=== PATIENT | female | born 1975 | race Caucasian/White ===

== ENCOUNTER → 2016-09-29 | Outpatient (CLI) | payer MEDICAID ==
[~2016-09-29] MED LIST: ALBUTEROL-200 PUFFS/ IH; CIPRO 500MG TA500 MG PO; CITALOPRAM HYDR20 MG PO; CLONAZEPAM 1MG T1 MG PO; COMPAZINE10 MG PO; FLEXERIL10 MG PO; GARCINIA CAMBO1 EACH PO; GREEN COFFEE B400 MG PO; HYDROCODONE-APA1 TA1 PO; IMITREX 25MG TA25 MG PO; NORCO 325 MG-101 TAB PO; NORCO 325 MG-51 TAB PO; OMEPRAZOLE20 MG PO; OMEPRAZOLE40 MG PO; PERCOCET 10 MG1 EACH PO; PHENERGAN 25MG.25 M1 PO; PHENERGAN25 M3 PO; PREDNISONE 20MG20 MG PO; PREMPRO 0.3 MG-1 TAB PO; PREMPRO 0.625 M1 TA1 PO; PYRIDIUM200 M2 PO; XANAX 0.5MG TA0.5 MG PO; ZANTAC 150150 MG PO; ZOFRAN4 MG PO
[2016-09-29 11:49] LABS: LYMPH # 2.5 K/mm3 (0.7-4.5); LYMPH % 28.3 % (10-50.0)
[2016-09-29 12:03] LABS: HEMOGLOBIN 13.6 g/dL (12.2-16.2)
[2016-09-29 13:26] LABS: BUN 15 mg/dL (7-18)
[2016-09-29 13:29] LABS: GFR (ESTIMATED) 79 ML/MIN (59-)
== END ==
LOC: LAB 11:32
PROVIDERS: Surgery
DX: Z01.812 Encounter for preprocedural laboratory examination (principal)

== ENCOUNTER 2016-10-01 09:32 | Day surgery (SDC) | payer MEDICAID ==
[~2016-10-01] VITALS: Ht 165.1 cm; Wt 123.8 kg
[~2016-10-01 09:32] MED LIST changes: -CIPRO 500MG TA500 MG PO; -FLEXERIL10 MG PO; -PREDNISONE 20MG20 MG PO; -PYRIDIUM200 M2 PO
--- NOTE | 2016-10-01 14:08 | Operative Note ---
Surgeon/Diagnoses Surgeon/Bid Manager(s) Date of procedure: 10/01/16 Surgeon: Favian Randhawa Diagnoses Pre-op diagnosis: Nonfunctioning painful venous access port Post-op diagnosis same Procedure Procedure Procedure: Removal of RIGHT internal jugular venous access port with subcutaneous reservoir Indications: RADHA OCFFEY is a 41 year-old Female with a history of metastatic cervical cancer. She had a previous venous access port placed to apparently in the RIGHT internal jugular vein at [facility]. This has become nonfunctional. Patient states that it is tender to her. It is no longer used as she states that she is in remission. She was sent for surgical consultation for removal. Findings: Fibrous capsule around noninfected venous access port. Procedure Description: Consent was obtained and patient was taken to the operating room. She is positioned in a supine position. Gen. anesthesia was induced via LMA. RIGHT neck and chest were prepped and draped in standard surgical fashion. Elliptical incision was made excising previous scar. Port was placed directly underneath the scar. Dissection was carried down to the subcutaneous reservoir port. This was dissected free from surrounding subcutaneous tissues using mostly sharp Metzenbaum dissection. The fibrous capsule was incised from the catheter. Port with attached catheter was then removed and its entirety and intact. Pressure was held at the site of the internal jugular vein and at the wound for several minutes for hemostasis. Wound was then irrigated. Hemostasis was achieved with electrocautery. Local anesthetic was infiltrated into the wound. Subdermal tissues were reapproximated with interrupted 2-0 Vicryl. Skin was closed with 4- 0 Monocryl in a subcu fashion. Clean dry sterile dressing was applied. Patient tolerated the procedure well no immediate complications. EBL (ml): 20 Anesthesia: Gen. via LMA Specimens: None Disposition Disposition: To PACU at 1408
--- NOTE | 2016-10-01 14:08 | Operative Note ---
Surgeon/Diagnoses Surgeon/Defensive Line Coach(s) Date of procedure: 10/01/16 Surgeon: Favian Randhawa Diagnoses Pre-op diagnosis: Nonfunctioning painful venous access port Post-op diagnosis same Procedure Procedure Procedure: Removal of RIGHT internal jugular venous access port with subcutaneous reservoir Indications: RADHA COFFEY is a 41 year-old Female with a history of metastatic cervical cancer. She had a previous venous access port placed to apparently in the RIGHT internal jugular vein at [facility]. This has become nonfunctional. Patient states that it is tender to her. It is no longer used as she states that she is in remission. She was sent for surgical consultation for removal. Findings: Fibrous capsule around noninfected venous access port. Procedure Description: Consent was obtained and patient was taken to the operating room. She is positioned in a supine position. Gen. anesthesia was induced via LMA. RIGHT neck and chest were prepped and draped in standard surgical fashion. Elliptical incision was made excising previous scar. Port was placed directly underneath the scar. Dissection was carried down to the subcutaneous reservoir port. This was dissected free from surrounding subcutaneous tissues using mostly sharp Metzenbaum dissection. The fibrous capsule was incised from the catheter. Port with attached catheter was then removed and its entirety and intact. Pressure was held at the site of the internal jugular vein and at the wound for several minutes for hemostasis. Wound was then irrigated. Hemostasis was achieved with electrocautery. Local anesthetic was infiltrated into the wound. Subdermal tissues were reapproximated with interrupted 2-0 Vicryl. Skin was closed with 4- 0 Monocryl in a subcu fashion. Clean dry sterile dressing was applied. Patient tolerated the procedure well no immediate complications. EBL (ml): 20 Anesthesia: Gen. via LMA Specimens: None Disposition Disposition: To PACU at 1408
[2016-10-01 15:49] VITALS: BP 112/76
[2016-10-13] MEDS ORDERED: OMEPRAZOLE40 MG PO (21:05)
[2016-10-13] MEDS ORDERED: PREDNISONE 20MG20 MG PO (22:42)
[2016-10-13] MEDS ORDERED: FLEXERIL10 MG PO (22:42)
== END 2016-10-01 15:12 | disposition home or self-care (01) ==
LOC: SDC 09:32
PROVIDERS: Surgery
PROC: 0JPT3WZ Removal of Totally Implantable Vascular Access Device from Trunk Subcutaneous Tissue and Fascia, Percutaneous Approach (ICD-10-PCS; principal; 2016-10-01 11:00)
DX: Z45.2 Encounter for adjustment and management of vascular access device (principal)
CPT/HCPCS: J2405

== ENCOUNTER 2017-01-08 22:23 | Emergency (ER) | payer MEDICAID ==
[~2017-01-08] VITALS: Ht 165.1 cm; Wt 123.8 kg
[~2017-01-08 22:23] MED LIST changes: +FLEXERIL10 MG PO; +PREDNISONE 20MG20 MG PO
--- NOTE | 2017-01-08 22:37 | Emergency Room Report ---
History of Present Illness Time Seen by [id number] Presenting Problem in Triage Pt arrived:Walked Presenting Problem:PAIN AND BLOOD WITH URINATION. 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 N Clinical Suspician of Infection? Y Mental Status: 1 - Regular (Normal Baseline) Sepsis Risk:Possible Sepsis Risk Have you (or family members/close friends) recently traveled outside the [place]? N If Yes, where/when: Have you had exposure to infectious disease within the past month? TB? Other? Specify: Source patient, RN notes reviewed, family, old records Exam Limitations no limitations Comment lower pelvic pain with hematuria and painful urination over the last day Cardiac Chest Pain Chest pain indicative of cardiac No Timing/Duration this evening Severity moderate ALLERGIES Coded Allergies: aspirin (10/01/16) ketorolac (From TORADOL) (10/01/16) morphine (10/01/16) Home Medications Reported Medications Citalopram Hydrobromide (Citalopram HBr) 20 MG PO PRN PRN ANXIETY #30 TAB Omeprazole (Omeprazole 40MG) 40 MG PO DAILY History Medical History General CAD? No Angina: No [place]: No Hypertension? No Hyperlipidemia? No CHF? No DVT? No PE? No COPD? No Asthma? Yes Anemia? No GERD? Yes Gastric ulcers? No GI Bleed? No Hernia? No Thyroid Problems? No Hypothyroidism? No CVA? No Seizures? No Diabetes? No Insulin Dependent: No Insulin Pump: No Home FSBS? No Renal Insuffiency? No End Stage Renal Disease? No UTI? Yes Stones? No BPH? No GB Disease: No Nephritic Syndrome? No Asplenia? No Hepatitis? No Sickle Cell Disease? No Arthritis? No Migraines? Yes Cataracts? No Glaucoma? No MRSA? No HIV? No TB? No Anxiety? Yes Depression? Yes Cancer? Yes Site: CERVICAL/ LYMPH NODES More? 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 Respiratory denies cough, denies shortness of breath, denies wheezing Cardiovascular denies chest pain, denies palpitations, denies syncope Gastrointestinal denies abdominal pain, denies constipation, denies vomiting Genitourinary see HPI, dysuria, frequency, hematuria. denies: discharge, abnormal vaginal bleeding. Musculoskeletal denies back pain, denies joint pain, denies joint swelling Skin denies rash Psychiatric/Neurological denies headache, denies seizure Physical Exam Vital Signs Vital Signs Date Time Temp Pulse Resp B/P Pulse O2 O2 Flow FiO2 Ox Delivery Rate 01/09 2228 98.0 120 20 139/78 96 - WBC >12,000 or <4,000 or 10% bands? 2 or more SIRS Criteria Met? B/P:139/78 MAP:98 Creatinine >2.0? UA output<0.5ml/kg/hr for 2 hrs? Platelet count >100,000? Lactate >2.0mmol/1? INR >1.2 or PTT > than 60 sec? Evidence of Organ Dysfunction? Provider documented clinical suspician of infection? Y Sepsis Criteria Count: 2 Sepsis Risk: Possible Sepsis Risk General Appearance no apparent distress Eye Exam - bilateral eye PERRL, bilateral eye EOMI Ear, Nose, Throat normal ENT inspection Neck supple Respiratory Status No: respiratory distress. 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 No Results/Orders Laboratory Tests 01/08/170: Urine Color YELLOW, Urine Appearance CLEAR, Urine pH 5.5, Ur Specific [place] 1.015, Urine Protein NEGATIVE, Urine Ketones NEGATIVE, Urine Blood 2+ H, Urine Nitrate NEGATIVE, Urine Bilirubin NEGATIVE, Urine Urobilinogen 0.2, Ur Leukocyte Esterase NEGATIVE, Urine RBC 5-10, Urine WBC OCC, Urine Bacteria 1+, Urine Glucose 2+ H Orders Procedure Date/time Status DIET-NOTHING BY MOUTH 01/[address] ABD & PELVIS W/O CONTRAST 01/[address] SCAN REQ 01/08 2301 Complete URINALYSIS/COMPLETE 01/08 2233 Complete XRAY/CT/US XRAY/CT/US CT abdomen, pelvis CT interpretation by discussed w/radiologist Time results known: 8 CT Results normal/NAD Departure Departure Time of Disposition 0028 Disposition DC Home or Self Care(routine) Clinical Impression Primary Impression: Urethritis Condition STABLE Referrals Slim Queen MD (Family) Patient Instructions DI for Hematuria Additional Instructions fluids and see pcp for follow up Discharge Counseling Counseled pt/family regarding diagnosis, test results, medications/RX, follow up needs Prescriptions Current Visit Scripts Ciprofloxacin HCl (Cipro 500MG TAB) 500 MG PO BID #14 TAB Phenazopyridine HCl (Pyridium) 200 MG PO TID #15 TAB ED Critical Care Critical Care No at 0036
--- NOTE | 2017-01-08 22:37 | Emergency Room Report ---
History of Present Illness Time Seen by [id number] Presenting Problem in Triage Pt arrived:Walked Presenting Problem:PAIN AND BLOOD WITH URINATION. 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 N Clinical Suspician of Infection? Y Mental Status: 1 - Regular (Normal Baseline) Sepsis Risk:Possible Sepsis Risk Have you (or family members/close friends) recently traveled outside the [place]? N If Yes, where/when: Have you had exposure to infectious disease within the past month? TB? Other? Specify: Source patient, RN notes reviewed, family, old records Exam Limitations no limitations Comment lower pelvic pain with hematuria and painful urination over the last day Cardiac Chest Pain Chest pain indicative of cardiac No Timing/Duration this evening Severity moderate ALLERGIES Coded Allergies: aspirin (10/01/16) ketorolac (From TORADOL) (10/01/16) morphine (10/01/16) Home Medications Reported Medications Citalopram Hydrobromide (Citalopram HBr) 20 MG PO PRN PRN ANXIETY #30 TAB Omeprazole (Omeprazole 40MG) 40 MG PO DAILY History Medical History General CAD? No Angina: No [place]: No Hypertension? No Hyperlipidemia? No CHF? No DVT? No PE? No COPD? No Asthma? Yes Anemia? No GERD? Yes Gastric ulcers? No GI Bleed? No Hernia? No Thyroid Problems? No Hypothyroidism? No CVA? No Seizures? No Diabetes? No Insulin Dependent: No Insulin Pump: No Home FSBS? No Renal Insuffiency? No End Stage Renal Disease? No UTI? Yes Stones? No BPH? No GB Disease: No Nephritic Syndrome? No Asplenia? No Hepatitis? No Sickle Cell Disease? No Arthritis? No Migraines? Yes Cataracts? No Glaucoma? No MRSA? No HIV? No TB? No Anxiety? Yes Depression? Yes Cancer? Yes Site: CERVICAL/ LYMPH NODES More? 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 Respiratory denies cough, denies shortness of breath, denies wheezing Cardiovascular denies chest pain, denies palpitations, denies syncope Gastrointestinal denies abdominal pain, denies constipation, denies vomiting Genitourinary see HPI, dysuria, frequency, hematuria. denies: discharge, abnormal vaginal bleeding. Musculoskeletal denies back pain, denies joint pain, denies joint swelling Skin denies rash Psychiatric/Neurological denies headache, denies seizure Physical Exam Vital Signs Vital Signs Date Time Temp Pulse Resp B/P Pulse O2 O2 Flow FiO2 Ox Delivery Rate 01/09 2228 98.0 120 20 139/78 96 - WBC >12,000 or <4,000 or 10% bands? 2 or more SIRS Criteria Met? B/P:139/78 MAP:98 Creatinine >2.0? UA output<0.5ml/kg/hr for 2 hrs? Platelet count >100,000? Lactate >2.0mmol/1? INR >1.2 or PTT > than 60 sec? Evidence of Organ Dysfunction? Provider documented clinical suspician of infection? Y Sepsis Criteria Count: 2 Sepsis Risk: Possible Sepsis Risk General Appearance no apparent distress Eye Exam - bilateral eye PERRL, bilateral eye EOMI Ear, Nose, Throat normal ENT inspection Neck supple Respiratory Status No: respiratory distress. 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 No Results/Orders Laboratory Tests 01/08/170: Urine Color YELLOW, Urine Appearance CLEAR, Urine pH 5.5, Ur Specific [place] 1.015, Urine Protein NEGATIVE, Urine Ketones NEGATIVE, Urine Blood 2+ H, Urine Nitrate NEGATIVE, Urine Bilirubin NEGATIVE, Urine Urobilinogen 0.2, Ur Leukocyte Esterase NEGATIVE, Urine RBC 5-10, Urine WBC OCC, Urine Bacteria 1+, Urine Glucose 2+ H Orders Procedure Date/time Status DIET-NOTHING BY MOUTH 01/[address] ABD & PELVIS W/O CONTRAST 01/[address] SCAN REQ 01/08 2301 Complete URINALYSIS/COMPLETE 01/08 2233 Complete XRAY/CT/US XRAY/CT/US CT abdomen, pelvis CT interpretation by discussed w/radiologist Time results known: 8 CT Results normal/NAD Departure Departure Time of Disposition 0028 Disposition DC Home or Self Care(routine) Clinical Impression Primary Impression: Urethritis Condition STABLE Referrals Slim Queen MD (Family) Patient Instructions DI for Hematuria Additional Instructions fluids and see pcp for follow up Discharge Counseling Counseled pt/family regarding diagnosis, test results, medications/RX, follow up needs Prescriptions Current Visit Scripts Ciprofloxacin HCl (Cipro 500MG TAB) 500 MG PO BID #14 TAB Phenazopyridine HCl (Pyridium) 200 MG PO TID #15 TAB ED Critical Care Critical Care No at 0036
[2017-01-08 22:50] LABS: URINE BILIRUBIN - DIPSTICK NEGATIVE (NEG); URINE BLOOD 2+ (NEG)
[2017-01-09] MEDS ORDERED: PYRIDIUM200 M2 PO (00:36)
[2017-01-09] MEDS ORDERED: CIPRO 500MG TA500 MG PO (00:36)
[2017-01-09 00:56] VITALS: BP 134/70
--- NOTE | 2017-01-09 09:03 | RADIOLOGY REPORT PS360 ---
CT ABD PELVIS W/O CONTRAST CLINICAL INDICATION: Abdominal pain, localized lower abdominal pain PELVIC PAIN ORDERING PHYSICIAN: Mor Queen MD PATIENT AGE: 41 years COMPARISON: 09/05/2016 TECHNIQUE: Axial images obtained with sagittal and coronal reformats. PROCEDURE: Oral Contrast: None IV Contrast: None . FINDINGS: Lower thorax: No acute finding . Calcified granuloma left lower lobe ABDOMEN: Liver: Mild fatty liver. No focal liver lesions evident. Gallbladder: Contracted. No radiopaque stones Pancreas: No masses or peripancreatic fluid collections. Spleen: Unremarkable. Adrenals: Unremarkable Kidneys/ureters: No obstructing renal or ureteral calculi are evident. There is minimal ectasia of the right ureter. This however did have a similar appearance on the previous study and could be due to prior obstruction. No obstructing calculi evident. Stomach bowel: Nondistended. No obvious mass or thickening. Appendix: No evidence of appendicitis. PELVIS: Reproductive: Unremarkable Bladder: Nondistended. No obvious stones or masses. ABDOMEN & PELVIS: Peritoneum: No abnormal fluid collections. No obvious inflammatory changes. No free air. Lymph nodes: No enlarged lymph nodes apparent. Vasculature: No evidence of abdominal aortic aneurysm. No retroperitoneal hemorrhage evident. Bones: No acute fracture IMPRESSION: 1. No acute intra-abdominal or pelvic pathology. 2. Nonacute findings as described above
[2017-01-16] MEDS ORDERED: GABAPENTIN100 MG PO (06:48)
[2017-01-16] MEDS ORDERED: NORCO 325 MG-51 TAB PO (07:45)
== END 2017-01-09 00:56 | disposition home or self-care (01) ==
LOC: ER 22:23
PROVIDERS: Emergency Medicine
DX: N34.2 Other urethritis (principal)

== ENCOUNTER → 2017-04-20 | Outpatient (CLI) | payer MEDICAID ==
[~2017-04-20] MED LIST changes: +ACETAMIN W/CODE1 TAB PO; +BUPROPION HCL150 M1 PO; +CIPRO 500MG TA500 MG PO; +CLONAZEPAM0.5 M1 PO; +GABAPENTIN100 MG PO; +GABAPENTIN300 M1 PO; +LEVOTHYROXIN0.025 M1 PO; +NAPROSYN500 M1 PO; +PERCOCET1 TAB PO; +PYRIDIUM200 M2 PO; +ROBAXIN-750750 MG PO; +TOPIRAMATE25 MG PO
[2017-04-20 15:00] LABS: LYMPH # 1.9 K/mm3 (0.7-4.5); LYMPH % 30.3 % (10-50.0)
[2017-04-20 17:29] LABS: BUN 14 mg/dL (7-18)
[2017-04-20 17:32] LABS: GFR (ESTIMATED) 61 ML/MIN (59-)
== END ==
LOC: LAB 14:27
PROVIDERS: Surgery
DX: K82.8 Other specified diseases of gallbladder (principal); K81.1 Chronic cholecystitis; Z01.812 Encounter for preprocedural laboratory examination

== ENCOUNTER 2017-06-23 13:26 | Emergency (ER) | payer MEDICAID ==
[~2017-06-23] VITALS: Ht 165.1 cm; Wt 124.7 kg
[2017-06-23] MEDS ORDERED: DIVALPROEX SOD125 M1 PO (13:47)
[2017-06-23 14:23] LABS: HEMOGLOBIN 12.4 g/dL (12.2-16.2)
[2017-06-23 14:24] LABS: LYMPH % 29.9 % (10-50.0)
--- NOTE | 2017-06-23 14:39 | Emergency Room Report ---
History of Present Illness Time Seen by [id number] Presenting Problem in Triage Pt arrived:Walked Presenting Problem:PT REPORTS WENT TO THE BATHROOM TO URINATE, STATED SHE SAT DOWN TO URINATE FELT A "POPPING" SENSATION AND THEN URINE "CAME OUT SO STRONG IT HURT". PT REPORTS THERE WAS BLOOD AND A "LARGE" BLOOD CLOT IN TOILET AFTER URINATING. PT REPORTS SHE IS "MORE SCARED THAN ANYTHING", PT IS TEARFUL DURING TRIAGE. Onset of symptoms date/time:06/23/17/ or onset unknown for:MEDICAL HX UNKNOWN Treatment Prior to Arrival: TRIAL JUSTICE Provided by: Sepsis Risk Assessment: Temp: 98.1 B/P: 139/95 MAP: 109 Pulse: 98 Resp: 20 Recent fever? N Clinical Suspician of Infection? N Mental Status: 1 - Regular (Normal Baseline) Sepsis Risk:Possible Sepsis Risk Have you (or family members/close friends) recently traveled outside the [place]? N If Yes, where/when: Have you had exposure to infectious disease within the past month? N TB? Other? Specify: Comment Patient says she felt the need to urinate, while sitting on the toilet it took her several seconds to start her stream and when she did so she felt a "pop" and saw that she had hematuria. Since then she has persistent hematuria. She also has lower abdominal pain going into both flanks, RIGHT worse than LEFT. She urinated twice this morning before this happened and did not have any visible hematuria or dysuria. She has nausea but no vomiting. No fever. No prior history of urinary tract infection or kidney stone. She does have a history of cervical cancer, she says she was told mid 2015 that she was in remission. ALLERGIES Coded Allergies: aspirin (04/22/17) ketorolac (From TORADOL) (04/22/17) morphine (04/22/17) Home Medications Reported Medications Omeprazole (Omeprazole 40MG) 40 MG PO DAILY Gabapentin 300 MG PO TID #90 Clonazepam (Clonazepam 0.5MG) 0.5 MG PO BID #60 Levothyroxine Sodium (Levothyroxine 0.025MG) 0.025 MG PO DAILY #30 Bupropion Hcl (Bupropion HCl Sr) 150 MG PO BID #60 Divalproex Sodium 250 MG PO QHS #60 History Medical History General CAD? No Angina: No NE: No Hypertension? No Hyperlipidemia? No CHF? No DVT? No PE? No COPD? No Asthma? Yes Anemia? No GERD? Yes Gastric ulcers? No GI Bleed? No Hernia? No Thyroid Problems? No Hypothyroidism? No CVA? No Seizures? No Diabetes? No Insulin Dependent: No Insulin Pump: No Home FSBS? No Renal Insuffiency? No End Stage Renal Disease? No UTI? Yes Stones? No BPH? No GB Disease: Yes Nephritic Syndrome? No Asplenia? No Hepatitis? No Sickle Cell Disease? No Arthritis? No Migraines? Yes Cataracts? No Glaucoma? No MRSA? No HIV? No TB? No Anxiety? Yes Depression? Yes Cancer? Yes Site: CERVICAL/ LYMPH NODES More? 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 Review of Systems All Other Systems Reviewed and Negative Constitutional denies fever Gastrointestinal abdominal pain, nausea Genitourinary dysuria, hematuria. Musculoskeletal back pain Physical Exam Vital Signs Vital Signs Date Time Temp Pulse Resp B/P Pulse O2 O2 Flow FiO2 Ox Delivery Rate 06/23 1611 98.1 94 20 122/91 100 06/23 1555 94 20 122/91 100 06/23 1507 91 20 129/86 97 06/23 1504 8 06/23 1337 98.1 98 20 139/95 97 General Appearance mild distress, Moaning and rocking Eye Exam - bilateral eye normal exam, bilateral eye PERRL, bilateral eye EOMI Ear, Nose, Throat hearing grossly normal, normal ENT inspection Neck normal inspection, non-tender, supple, full range of motion Respiratory Status Yes: trachea midline, chest symmetrical, non tender chest. No: respiratory distress. Lung Sounds bilateral: normal breath sounds, lungs clear. Cardiovascular normal exam, regular rate/rhythm, no peripheral edema, no gallop, no JVD, no murmur, no rub, normal peripheral pulses Peripheral Pulses Pulses normal Yes Gastrointestinal normal bowel sounds, soft, no organomegaly, no guarding, no rebound, tenderness (generalized) Extremities non-tender, normal range of motion, normal inspection Neurologic alert, gastroenterology nurse II-XII nml as tested, normal exam, oriented x 3 Mental status anxious Skin intact, normal color, warm/dry Medical Decision Making LABS/Meds/Orders Pt receiving controlled substance in ED? Yes Comment [id number] 20 rxs. last rx for opiates 06/08/17, 60 tylenol #3, 30 day supply. Patient states has chronic back pain. Dr. Queen prescribed Tylenol 3 and referred her to pain management, but she did not go and is not currently on pain medication. I discussed report results, patient should have 2 weeks LEFT on her prescription for Tylenol with codeine. She says when she is in a lot of pain she doubles up on it and is now out. Results/Orders Laboratory Tests 06/23/17 1410: Urine Color RED, Urine Appearance CLEAR, Urine pH 6.0, Ur Specific Sparks >= 1.030, Urine Protein 3+ H, Urine Ketones NEGATIVE, Urine Blood 2+ H, Urine Nitrate NEGATIVE, Urine Bilirubin NEGATIVE, Urine Urobilinogen 0.2, Ur Leukocyte Esterase NEGATIVE, Urine RBC TNTC, Urine WBC 3-5, Ur Squamous Epith Cells OCC, Urine Bacteria TRACE, Urine Glucose NEGATIVE 06/23/17 1405: Sodium 141, Potassium 3.5, Chloride 106, Carbon Dioxide 24, BUN 16, Creatinine 1.1 H, Estimated Creat Clear 131, Estimated GFR (MDRD) 54 L, Glucose 227 H, Calcium 10.2 H, Total Bilirubin 0.3, AST 66 H, ALT 63, Alkaline Phosphatase 93 , Total Protein 7.3, Albumin 3.3 L, Globulin 4.0 H, Albumin/Globulin Ratio 0.8 L, WBC 6.7, RBC 4.50, Hgb 12.4, Hct 39.2, MCV 87.0, RDW 16.5, Plt Count 181, Gran % 66.0, Gran # 4.4, Lymphocytes % 29.9, Monocytes % 4.1, Lymphocytes # 2.0, Monocytes # 0.3, PUBS MCHC 31.6 L, MCH 27.6 Current Medication Orders Sig/Geovanny Start time Last Medication Dose Route Stop Time Status Admin Ondansetron HCl 0 .STK-MED ONE 06/23 1503 DC .ROUTE Hydromorphone HCl 0 .STK-MED ONE 06/23 1502 DCr .ROUTE Hydromorphone HCl 1 MG ONCE ONE 06/23 1500 DCr 06/23 IV 06/23 1501 1504 Ondansetron HCl 4 MG ONCE ONE 06/23 1500 DC 06/23 IV 06/23 1501 1503 Sodium Chloride 10 ML PRN PRN 06/23 1400 DCD IV 06/24 1349 Orders Procedure Date/time Status DIET-NOTHING BY MOUTH 06/23 D Active CULTURE, URINE 06/[address] ABD/PELVIS REQ 06/23 1448 Complete IV SALINE LOCK 06/23 1349 Active URINALYSIS/COMPLETE 06/23 1349 Complete CBC WITH AUTO DIFF 06/23 1349 Complete CHEM 12 PROFILE 06/23 1349 Complete XRAY/CT/US XRAY/CT/US CT abdomen, pelvis Comment CT scan interpreted by radiologist: No acute intra-abdominal or pelvic findings. Interval cholecystectomy. Subtle decreased attenuation involves the medial aspect of the RIGHT hepatic lobe at the region of the gallbladder fossa could be due to focal fatty infiltration or postsurgical changes. Departure Departure Disposition DC Home or Self Care(routine) Clinical Impression Primary Impression: Hematuria Qualifiers: Hematuria type: unspecified type Qualified Code: R31.9 - Hematuria, unspecified Secondary Impressions: Abdominal pain Qualifiers: Abdominal location: generalized Qualified Code: R10.84 - Generalized abdominal pain Back pain Qualifiers: Back pain location: low back pain Chronicity: unspecified Back pain laterality: bilateral Sciatica presence: without sciatica Qualified Code: M54.5 - Low back pain Condition STABLE Referrals Mor Queen MD Patient Instructions DI for Abdominal Pain-Adult, DI for Hematuria, DI for Low Back Pain Additional Instructions Take antibiotic as prescribed. All of which her primary care physician in 2-3 days for culture results and further evaluation. Additional instructions for ABDOMINAL PAIN: See your physician as soon as possible for further evaluation. Return immediately if worsening abdominal pain, vomiting, shortness of breath, fever, vomiting of blood or abdominal distention. Additional instructions for BACK PAIN: See your physician as soon as possible for further evaluation. Return immediately if back pain becomes intolerable, or if fever, numbness or weakness of your legs, loss of control of your bowels or bladder. Prescriptions Current Visit Scripts Ciprofloxacin HCl (Cipro 500MG TAB) 500 MG PO BID #20 TAB Phenazopyridine HCl (Pyridium) 200 MG PO TID #9 TAB ED Critical Care Critical Care No at 1650
[2017-06-23 14:50] LABS: URINE BILIRUBIN - DIPSTICK NEGATIVE (NEG); URINE BLOOD 2+ (NEG)
[2017-06-23 14:57] LABS: URINE SQUAMOUS CELLS OCC #/hpf (0-5)
--- NOTE | 2017-06-23 15:47 | RADIOLOGY REPORT PS360 ---
CT ABD PELVIS W/O CONTRAST CLINICAL INDICATION: Hematuria, abdominal pain, flank pain HEMATURIA, ABDO PAIN, BACK PAIN ORDERING PHYSICIAN: Onofre Hendrix MD PATIENT AGE: 42 years COMPARISON: 04/05/2017 TECHNIQUE: Axial images obtained with sagittal and coronal reformats. PROCEDURE: Oral Contrast: None IV Contrast: None . FINDINGS: The lung bases are clear. There is mild hepatic steatosis. There is a subtle area of decreased attenuation in the medial aspect of the right hepatic lobe in the region of the gallbladder fossa measuring approximately 1.8 cm. This is nonspecific and could be related to postsurgical changes or focal fatty infiltration.. There has been an interval cholecystectomy compared to the previous exam. No biliary dilatation. Spleen, adrenal glands, and pancreas are unremarkable other than some minimal calcification along the uncinate process of the pancreas nonspecific. No renal calculi or ureteral calculi. No hydronephrosis or ureteral dilatation. The appendix is unremarkable. No evidence of diverticulitis, intestinal obstruction, or free air. There is diverticulosis of the sigmoid colon versus nondistended haustra. No pelvic mass or abnormal fluid collection. Urinary bladder has an unremarkable appearance. No acute bony findings. There is a tiny umbilical hernia containing fat. IMPRESSION: 1. No acute intra-abdominal or pelvic findings. 2. Interval cholecystectomy. Subtle decreased attenuation involves the medial aspect of the right hepatic lobe at the region of the gallbladder fossa could be due to focal fatty infiltration or postsurgical changes. Follow-up suggested to confirm stability or resolution.
[2017-06-23] MEDS ORDERED: CIPRO 500MG TA500 MG PO (15:57)
[2017-06-23] MEDS ORDERED: PYRIDIUM200 M2 PO (15:57)
[2017-06-23 16:11] VITALS: BP 122/91
== END 2017-06-23 16:11 | disposition home or self-care (01) ==
LOC: ER 13:26
PROVIDERS: Emergency Medicine
DX: R10.84 Generalized abdominal pain (principal); R31.9 Hematuria, unspecified; M54.5 Low back pain; Z88.6 Allergy status to analgesic agent; K21.9 Gastro-esophageal reflux disease without esophagitis; F41.8 Other specified anxiety disorders; F17.210 Nicotine dependence, cigarettes, uncomplicated; Z85.41 Personal history of malignant neoplasm of cervix uteri
CPT/HCPCS: J2405

== ENCOUNTER → 2017-06-25 | Outpatient (CLI) | payer MEDICAID ==
[~2017-06-25] MED LIST changes: +DIVALPROEX SOD125 M1 PO; +TOPIRAMATE 25MG25 MG PO
== END ==
LOC: SL 10:07
DX: R51 Headache (principal); G47.30 Sleep apnea, unspecified; G25.81 Restless legs syndrome

== ENCOUNTER 2017-06-27 19:43 | Observation (INO) | payer MEDICAID ==
[~2017-06-27] VITALS: Ht 165.1 cm; Wt 123.4 kg
[~2017-06-27 19:43] MED LIST changes: -TOPIRAMATE 25MG25 MG PO
[2017-06-27 19:47] VITALS: BP 134/93
--- NOTE | 2017-06-27 20:16 | Emergency Room Report ---
History of Present Illness Time Seen by 2007 Presenting Problem in Triage Pt arrived:Wheelchair Presenting Problem:overdose on unknown amount of wellbutrin, depakote, neurontin , topamax and clonazepam at approx 1630. States she wants to Onset of symptoms date/time:06/27/17 or onset unknown for: Treatment Prior to Arrival: [employer] LENS Provided by: Sepsis Risk Assessment: Temp: B/P: 134/93 MAP: 106 Pulse: 91 Resp: 24 Recent fever? N Clinical Suspician of Infection? N Mental Status: 1 - Regular (Normal Baseline) Sepsis Risk:Possible Sepsis Risk Have you (or family members/close friends) recently traveled outside the [place]? N If Yes, where/when: Have you had exposure to infectious disease within the past month? N TB? Other? Specify: Comment The patient says that at 4:30 PM she took all of her medications because she does not want to live. She has family problems. She denies prior history of overdose. 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 Pill bottles include topamax, divalproex, gabapentin, and clonazepam. Gabapentin 300 mg in one 3 times a day, 57 capsules filled on 06/19/17. Divalproex 125 mg daily at bedtime, 60 capsules filled on 06/08/17. Topiramate 25 mg at bedtime, 30 tablets filled on 02/25/17. Clonazepam 0.5 mg twice a day, 38 tablets filled on 06/19/17. ALLERGIES Coded Allergies: aspirin (04/22/17) ketorolac (From TORADOL) (04/22/17) morphine (04/22/17) Home Medications Active Scripts Ciprofloxacin HCl (Cipro 500MG TAB) 500 MG PO BID #20 TAB Prov: 06/23/17 Phenazopyridine HCl (Pyridium) 200 MG PO TID #9 TAB Prov: 06/23/17 Reported Medications Omeprazole (Omeprazole 40MG) 40 MG PO DAILY Gabapentin 300 MG PO TID #90 Clonazepam (Clonazepam 0.5MG) 0.5 MG PO BID #60 Levothyroxine Sodium (Levothyroxine 0.025MG) 0.025 MG PO DAILY #30 Bupropion Hcl (Bupropion HCl Sr) 150 MG PO BID #60 Divalproex Sodium 250 MG PO QHS #60 History Medical History General CAD? No Angina: No VA: No Hypertension? No Hyperlipidemia? No CHF? No DVT? No PE? No COPD? No Asthma? Yes Anemia? No GERD? Yes Gastric ulcers? No GI Bleed? No Hernia? No Thyroid Problems? No Hypothyroidism? No CVA? No Seizures? No Diabetes? No Insulin Dependent: No Insulin Pump: No Home FSBS? No Renal Insuffiency? No End Stage Renal Disease? No UTI? Yes Stones? No BPH? No GB Disease: Yes Nephritic Syndrome? No Asplenia? No Hepatitis? No Sickle Cell Disease? No Arthritis? No Migraines? Yes Cataracts? No Glaucoma? No MRSA? No HIV? No TB? No Anxiety? Yes Depression? Yes Cancer? Yes Site: CERVICAL/ LYMPH NODES More? 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 Psychiatric/Neurological depressed, emotional problems Physical Exam Vital Signs Vital Signs Date Time Temp Pulse Resp B/P Pulse O2 O2 Flow FiO2 Ox Delivery Rate 06/27 2209 84 20 106/70 94 06/27 2209 98.0 84 24 106/70 94 06/278 88 20 119/69 97 06/27 2107 98.0 76 18 118/71 95 06/27 2021 93 16 107/61 98 06/27 1947 91 24 134/93 96 General Appearance no apparent distress Eye Exam - bilateral eye normal exam, bilateral eye PERRL, bilateral eye EOMI Ear, Nose, Throat hearing grossly normal, normal ENT inspection Neck normal inspection, non-tender, supple, full range of motion Respiratory Status Yes: trachea midline, chest symmetrical. No: respiratory distress. Lung Sounds bilateral: normal breath sounds, lungs clear. Cardiovascular normal exam, regular rate/rhythm, no peripheral edema, no gallop, no JVD, no murmur, no rub, normal peripheral pulses Peripheral Pulses Pulses normal Yes Gastrointestinal normal bowel sounds, normal exam, non tender, soft, no organomegaly Extremities normal inspection Neurologic drowsy Reflexes Reflexes normal Yes Mental status suicidal Skin intact, normal color, warm/dry Medical Decision Making LABS/Meds/Orders Pt receiving controlled substance in ED? No Results/Orders Laboratory Tests 06/27/172054: TSH 18.71 H, Free T4 0.97 06/27/172054: Sodium 140, Potassium 3.6, Chloride 106, Carbon Dioxide 27, BUN 12, Creatinine 1.1 H, Estimated Creat Clear 132, Estimated GFR (MDRD) 54 L, Glucose 168 H, Calcium 10.3 H, Total Bilirubin 0.2, AST 40 H, ALT 52, Alkaline Phosphatase 91 , Total Protein 7.3, Albumin 3.4, Globulin 3.9 H, Albumin/Globulin Ratio 0.9 L , WBC 9.6, RBC 4.42, Hgb 12.2, Hct 39.0, MCV 88.2, RDW 15.1, Plt Count 203, MPV 8.3, Gran % 58.5, Gran # 5.6, Lymphocytes % 33.7, Monocytes % 4.9, Eosinophils % 2.5, Basophils % 0.4, Lymphocytes # 3.2, Monocytes # 0.5, Eosinophils # 0.2, Basophils # 0.0, PUBS MCHC 31.2 L, MCH 27.5, Salicylates 3.3, Acetaminophen 0 L, Valproic Acid 84.3, Alcohols 0 Current Medication Orders Sig/Geovanny Start time Last Medication Dose Route Stop Time Status Admin Sodium Chloride 1,000 ML .Q1H1M 06/27 2200 DC IV 06/27 2300 Polyethylene Glycol/ 0 .STK-MED ONE 06/27 2048 DC Electrolytes .ROUTE Charcoal 0 .STK-MED ONE 06/27 2044 DC .ROUTE Charcoal 50 GM ONCE ONE 06/27 2015 DC 06/27 PO 06/27 Polyethylene Glycol/ 2,000 ML ONCE ONE 06/27 2015 DC 06/27 Electrolytes PO 06/27 Sodium Chloride 10 ML PRN PRN 06/27 2015 AC IV 10/01 2013 Orders Procedure Date/time Status Decision to admit 06/27 2203 Active ELECTROCARDIOGRAM REQUEST 06/27 2033 Active NG TUBE INSERT 06/27 2025 Active THYROID STIMULATING HORMONE 06/27 2016 Complete FREE T4 06/27 2016 Complete CHEST-PORTABLE 06/27 2013 Active IV SALINE LOCK 06/27 2013 Active 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 Active VALPROIC ACID (DEPAKENE) 06/27 2013 Complete SALICYLATE 06/27 2013 Complete DRUG ABUSE SCREEN (TRIAGE) 06/27 2013 Active CBC WITH AUTO DIFF 06/27 2013 Complete CHEM 12 PROFILE 06/27 2013 Complete ALCOHOL 06/27 2013 Complete Acetaminophen 06/27 2013 Complete 12 LEAD EKG-BESSON (INITIAL) 06/27 UNK Active CM/EKG CM/EKG Comments EKG interpreted by Onofre Hendrix MD: Rhythm: sinus Rate: 84 [place]: LEFT Ectopy: none Conduction: normal ST Segment Changes: none T Wave Changes: none Q Waves: none No evidence of acute ischemia or injury Left ventricular hypertrophy XRAY/CT/US XRAY/CT/US XRAY chest Comment Chest x-ray interpreted by Onofre Hendrix M.D. No infiltrate, pneumothorax, pleural effusion, or wide mediastinum. Progress - 10:00 PM: I have discussed the case with Dr. Queen who agrees to admit the patient to the hospital. We discussed the patient's clinical information, including history, exam, laboratory and radiology results and ED course. Per hospital procedure, I will write temporary bridge inpatient orders on the patient. Specific orders requested by the admitting physician: Per poison control, repeat Depakote levels, [facility] Departure Disposition Still a Patient Clinical Impression Primary Impression: Drug overdose, multiple drugs Qualifiers: Encounter type: initial encounter Injury intent: intentional self- harm Qualified Code: T50.902A - Poisoning by unspecified drugs, medicaments and biological substances, intentional self-harm, initial encounter Secondary Impressions: Suicide attempt Condition STABLE ED Critical Care Critical Care No at 2330
[2017-06-27 21:08] LABS: HEMOGLOBIN 12.2 g/dL (12.2-16.2); LYMPH # 3.2 K/mm3 (0.7-4.5); LYMPH % 33.7 % (10-50.0)
[2017-06-27 23:26] VITALS: BP 125/52
[2017-06-27 23:28] VITALS: BP 125/52
[2017-06-28] VITALS (7 sets, daily range): BP systolic 108–115; BP diastolic 56–96
[2017-06-28] MEDS ORDERED: TOPIRAMATE 25MG25 MG PO (00:21)
[2017-06-28 06:42] LABS: AMPHETAMINES/METAMPHETAMINES NEGATIVE ng/mL (<1000)
--- NOTE | 2017-06-28 08:37 | PHARMACY CLINIC NOTE ---
Patient Demographics Patient Demographics Admission date: 06/27/17 Date: 06/28/17 Time: 0836 Allergies Coded Allergies: aspirin (04/22/17) ketorolac (From TORADOL) (04/22/17) morphine (04/22/17) HEIGHT- FT: 5 IN: 5.00 K.407 VTE General Information Labs: Laboratory Tests 06/27 2055 Hematology Hgb (12.2 - 16.2 g/dL) 12.2 Hct (37.0 - 47.0 %) 39.0 Plt Count (142 - 424 K/mm3) 203 Disclaimer The following section includes nursing documentation that has been pulled in for pharmacy review. Patient's VTE score: 2 Patient's VTE Risk: VERY LOW RISK Clinical trial participant? No VTE prophylaxis NQF [id number] VTE prophylaxis ordered? Yes Type of prophylaxis/treatment: FÁTIMA at 0836
--- NOTE | 2017-06-28 10:42 | RADIOLOGY REPORT PS360 ---
CHEST-PORTABLE HISTORY: ODshort of breath. Overdose. Patient Age: 42 years: Female Ordering Physician: Slim Queen MD TECHNIQUE: AP portable upright chest COMPARISON :December 2014 portable upright chest FINDINGS Poor inspiration crowds markings accentuates the mild chronic lung changes. . Question Slight reticular interstitial pattern towards the lung bases which is also accentuated by the patient's size and overlying breast density . This could reflect some mild vascular congestion but no prominent nor overt CHF evident.. No pleural effusions. Upper lobe pulmonary vessels upper normal prominence Heart is upper normal in size of again likely exaggerated by the portable projection and poor aspiration. [place] and mediastinal structures satisfactory. IMPRESSION: Poor aspiration accentuates markings. Particularly towards the lung bases However no discrete focal pneumonia evident... Upper normal markings at the right lung base most likely atelectasis along with accentuated minor chronic changes . Question some mild vascular engorgement but no elly CHF. Borderline cardiomegaly- heart size accentuated by poor aspiration and portable technique
--- NOTE | 2017-06-28 20:33 | HISTORY AND PHYSICAL REPORT ---
Demographics: Admit date: 06/27/17 Chief complaint: suicide attempt PRIMARY DIAGNOSIS: OVERDOSE-MULTIPLE DRUGS; SUICIDE ATTEMPT Allergies: Coded Allergies: aspirin (04/22/17) ketorolac (From TORADOL) (04/22/17) morphine (04/22/17) History of present illness: History of present illness: 42 yr old female presents to ed overdose on unknown amount of wellbutrin, depakote, neurontin, topamax and clonazepam at approx 1630. per ed note pt States she wants to . [facility] Past medical history: Family HX Diabetes No CAD No Hypertension No Hyperlipidemia No Cancer Yes TB No Immunization HX DT/Tetanus Unknown Flu Refused Pneumonia Never Had TB Test in last year No General CAD? No Angina: No VT: No Hypertension? No Hyperlipidemia? No CHF? No DVT? No PE? No COPD? No Asthma? Yes Anemia? No GERD? Yes Gastric ulcers? No GI Bleed? No Hernia? No Thyroid Problems? No Hypothyroidism? No CVA? No Seizures? No Diabetes? No Insulin Dependent: No Insulin Pump: No Home FSBS? No Renal Insuffiency? No UTI? Yes Stones? No BPH? No GB Disease: Yes Nephritic Syndrome? No Asplenia? No Hepatitis? No Sickle Cell Disease? No Arthritis? No Migraines? Yes Cataracts? No Glaucoma? No MRSA? No HIV? No TB? No Anxiety? Yes Depression? Yes Cancer? Yes Site: CERVICAL/ LYMPH NODES More? Yes Additional hx: PAST CHEMO AND RADIATION Past Surgical HX Previous Surgery?Y D&C X2 BRACHETHERAPY LAPORSCOPIC TUBAL REMOVAL I&D OF KNEE A CHILD PORT PLACEMENT AND REMOVA X2 Current home meds: Reported Medications Topiramate (Topiramate 25MG Tablet) 25 MG PO QHS Omeprazole (Omeprazole 40MG) 40 MG PO DAILY Gabapentin 300 MG PO TID #90 Clonazepam (Clonazepam 0.5MG) 0.5 MG PO BID #60 Levothyroxine Sodium (Levothyroxine 0.025MG) 0.025 MG PO DAILY #30 Bupropion Hcl (Bupropion HCl Sr) 150 MG PO BID #60 Divalproex Sodium 250 MG PO QHS #60 Social Hx: Smoking HX Tobacco Yes Type Cigarettes Packs/day 1 1/2 - 2 PACKS Alcohol Alcohol: No Hx of Drug Use Drug Use? No Review of systems: Constitutional No: no symptoms reported. Respiratory No: no symptoms reported. Cardiovascular No no symptoms reported Gastrointestinal/Abdominal No no symptoms reported Genitourinary No: no symptoms reported. Musculoskeletal No: no symptoms reported. Neurological Yes: see HPI. Psychiatric Yes: depressed. Exam: Lab data for last 24 hours: Laboratory Tests 06/28/17 1059: Valproic Acid 53.6 06/28/17 0615: Opiates Screen POSITIVE H, Urine Methadone Screen NEGATIVE, Barbiturates NEGATIVE, Phencyclidine Screen NEGATIVE, Amphetamines Screen NEGATIVE, Benzodiazepines Screen NEGATIVE, Cocaine Screen POSITIVE H, Marijuana (THC) Screen NEGATIVE 06/28/17 0500: Valproic Acid 64.2 06/28/17 0025: Ammonia 14 L 06/27/175: Valproic Acid 113.9 *H 06/27/172054: TSH 18.71 H, Free T4 0.97 06/27/172054: Sodium 140, Potassium 3.6, Chloride 106, Carbon Dioxide 27, BUN 12, Creatinine 1.1 H, Estimated Creat Clear 132, Estimated GFR (MDRD) 54 L, Glucose 168 H, Calcium 10.3 H, Total Bilirubin 0.2, AST 40 H, ALT 52, Alkaline Phosphatase 91 , Total Protein 7.3, Albumin 3.4, Globulin 3.9 H, Albumin/Globulin Ratio 0.9 L , WBC 9.6, RBC 4.42, Hgb 12.2, Hct 39.0, MCV 88.2, RDW 15.1, Plt Count 203, MPV 8.3, Gran % 58.5, Gran # 5.6, Lymphocytes % 33.7, Monocytes % 4.9, Eosinophils % 2.5, Basophils % 0.4, Lymphocytes # 3.2, Monocytes # 0.5, Eosinophils # 0.2, Basophils # 0.0, PUBS MCHC 31.2 L, MCH 27.5, Salicylates 3.3, Acetaminophen 0 L, Valproic Acid 84.3, Alcohols 0 Admission vital signs: 1ST Vital Signs Result Date Time Pulse Ox 96 06/27 1947 B/P 134/93 06/27 1947 Pulse 91 06/27 1947 Resp 24 06/27 1947 Temp 98.0 09/30 2107 O2 Delivery ROOM AIR 06/27 2326 Exam General appearance: normal appearance, agitated Eyes: normal exam ENT: normal exam Neck: normal inspection Cardiovascular: normal exam, regular rate & rhythm Respiratory: normal exam, clear to auscultation, good air movement, no respiratory distress ABD: normal exam, non-distended, normal bowel sounds, no rebound, soft, no tenderness Genitourinary: normal voiding & quantity Extremities: normal exam, full range of motion, moves all, normal capillary refill, no peripheral edema Musculoskeletal: normal exam, normal gait, back pain Skin: normal exam, intact, normal color, warm Neuro: agitated, disoriented, hallucinations, states spiders crawling everywhere Plan: Problem List 1. Drug overdose, multiple drugs 2. Suicide attempt Plan: allan will round later today. contiune 1:1 care mangement consult at 2033
[2017-06-29 00:30] VITALS: BP 122/77
[2017-06-29 03:45] VITALS: BP 105/69
[2017-06-29 06:53] LABS: LYMPH # 1.8 K/mm3 (0.7-4.5); LYMPH % 35.9 % (10-50.0)
[2017-06-29 07:35] VITALS: BP 103/83
[2017-06-29 07:48] VITALS: BP 118/65
[2017-06-29 08:48] VITALS: BP 118/65
--- NOTE | 2017-06-29 09:36 | ACUTE CARE PROGRESS NOTE (QUA) ---
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 Drug overdose, multiple drugs 2. Suicide attempt 3. Hypothyroidism 4. Cocaine abuse 5. Depression Patient condition Improving Plan: care management consult This inpt stay is expected to cross 2 MNs from start of care Yes Comments: will need pschy eval she is medically stable at 0935
--- NOTE | 2017-06-29 09:36 | ACUTE CARE PROGRESS NOTE (QUA) ---
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 Drug overdose, multiple drugs 2. Suicide attempt 3. Hypothyroidism 4. Cocaine abuse 5. Depression Patient condition Improving Plan: care management consult This inpt stay is expected to cross 2 MNs from start of care Yes Comments: will need pschy eval she is medically stable at 0935
--- NOTE | 2017-06-29 10:30 | DISCHARGE SUMMARY STANDARD ---
Demographics Admit date: 06/27/17 Discharge date: 06/29/17 History of present illness History of present illness 42 yr old female presents to ed overdose on unknown amount of wellbutrin, depakote, neurontin, topamax and clonazepam at approx 1630. per ed note pt States she wants to . Pt admitted for medical yasmine, [facility] mangement consult. Hospital Course Hospital Course: pt has cleared medically and still is ambilivant about self harm and appears to be depressed and has substance abuse with poor insight and her family feel she is a danger still to herself and pt is willing to go to [facility] for pschy eval Discharge diagnoses Problem List 1. Drug overdose, multiple drugs 2. Suicide attempt 3. Hypothyroidism 4. Cocaine abuse 5. Depression Medications Medications: Discharge meds are as noted. Follow up Follow up in office in: 2 WEEKS with: Diane Olmedo APRN Comment: will follow as op after pschy eval at [phone]
--- NOTE | 2017-06-29 10:30 | DISCHARGE SUMMARY STANDARD ---
Demographics Admit date: 06/27/17 Discharge date: 06/29/17 History of present illness History of present illness 42 yr old female presents to ed overdose on unknown amount of wellbutrin, depakote, neurontin, topamax and clonazepam at approx 1630. per ed note pt States she wants to . Pt admitted for medical yasmine, [facility] mangement consult. Hospital Course Hospital Course: pt has cleared medically and still is ambilivant about self harm and appears to be depressed and has substance abuse with poor insight and her family feel she is a danger still to herself and pt is willing to go to [facility] for pschy eval Discharge diagnoses Problem List 1. Drug overdose, multiple drugs 2. Suicide attempt 3. Hypothyroidism 4. Cocaine abuse 5. Depression Medications Medications: Discharge meds are as noted. Follow up Follow up in office in: 2 WEEKS with: Diane Olmedo APRN Comment: will follow as op after pschy eval at [phone]
[2017-06-29 10:33] VITALS: BP 118/65
--- OUTSIDE RECORDS SUMMARY | 2017-07-08 19:55 | External Medical Summary Rpt ---
Author Author , CESAR Organization CESAR Address Unknown Phone [email or web address] Care Team Providers Care Marketing Director Assisted Living Name Role Phone ABSNER MILAGROS, ABSMATEUS Unavailable Unavailable MILAGROS [employer] Unavailable Unavailable INC, [employer] Unavailable Unavailable INC, [employer] ALLRAN JR, ALLRAN JR Unavailable Unavailable AYOOB AND, AYOOB AND Unavailable Unavailable BEINEKE, BEINEKE Unavailable Unavailable STACY, STACY Unavailable Unavailable STACY ALL, STACY ALL Unavailable Unavailable [facility] Unavailable Unavailable DEPARTMENT, [facility] Unavailable Unavailable DEPARTMENT, [facility] MÁRQUEZ JAM, MÁRQUEZ JAM Unavailable Unavailable CORTEZ DESHAUN, Unavailable Unavailable CORTEZ DESHAUN BUBBA OIL FIELD CASER, BUBBA Unavailable Unavailable OIL FIELD CASER BUBBA OIL FIELD CASER, BUBBA Unavailable Unavailable OIL FIELD CASER [facility], Unavailable Unavailable [facility] CASTILLO YASH, CASTILLO Unavailable Unavailable [facility] Unavailable [facility]available [facility] Unavailable Unavailable [facility], [facility] МАРИЯ GAR, МАРИЯ Unavailable Unavailable GAR NICO ALEJANDRA, Unavailable Unavailable NICO ALEJANDRA MICHELLE, MICHELLE Unavailable Unavailable MICHELLE PHI, Unavailable Unavailable MICHELLE PHI MICHELLE PHI, Unavailable Unavailable MICHELLE PHI MERRITT SHIRA, MERRITT SHIRA Unavailable Unavailable AZERBAIJANI DESHAUN, AZERBAIJANI Unavailable Unavailable DESHAUN FAUGHN LAO, FAUGHN Unavailable Unavailable LAO FEDDOCK CHRISTIANO, FEDDOCK Unavailable Unavailable CHRISTIANO FEEBACK, FEEBACK Unavailable Unavailable FRYMAN, FRYMAN Unavailable Unavailable YOKO, YOKO Unavailable Unavailable YOKO JAMES, YOKO Unavailable Unavailable JAMES [facility] Unavailable Unavailable INC, [facility] Unavailable Un[facility]PITAL P, [facility], Unavailable Unavailable [facility] STOKES MAR, STOKES Unavailable Unavailable MAR GRAMAJO, GRAMAJO Unavailable Unavailable GRAMAJO WANDA, GRAMAJO WANDA Unavailable Unavailable [facility] Un[facility], [facility] Un[facility], [facility] MERRITT JR, MERRITT JR Unavailable Unavailable MERRITT JR DWI, MERRITT Unavailable Unavailable JR DWI MAREK [facility]AN Unavailable Unavailable COGOVT, MAREK FAYETTE URBAN COGOVT MICHAELS MAR, MICHAELS Unavailable Unavailable MAR JERAMIE JOSÉ, JERAMIE Unavailable Unavailable JOSÉ [facility] Unavailable Unavailable EMS, [facility] Unavailable Unavailable EMS, [facility] [place], [place] Unavailable Unavailable [facility], Un[facility], [facility] RASLAU FLA, RASLAU Unavailable Unavailable FLA RENUSCH, RENUSCH Unavailable Unavailable RENUSCH DEBBY, RENUSCH Unavailable Unavailable DEBBY ROB LINDSAY, ROB LINDSAY Unavailable Unavailable SADEK MOH, SADEK MOH Unavailable Unavailable [facility], Unavailable Unavailable [facility] MARTIN PAR, MARTIN PAR Unavailable Unavailable SOTINGEANU, Unavailable Unavailable SOTINGEANU BRITTANY, BRITTANY Unavailable Unavailable JUSTIN CRY, JUSTIN Unavailable Unavailable CRY SWINEY PAT, SWINEY Unavailable Unavailable PAT SWINEY PAT, SWINEY Unavailable Unavailable PAT [facility] Unavailable Unavailable HOSPITALS, [facility], Unavailable Unavailable [facility] NICOLÁS, VORKPOR Unavailable Unavailable NICOLÁS [place] [place], [place] Unavailable Unavailable Purpose Continuity of Care Document - 02-14-2003 through 2016 Problems Code Diagnosis DOS Provider Status K811 CHRONIC 04-22-2017 [facility] CHOLECYSTIT PHYSICIANS IS GROUP K819 CHOLECYSTIT 04-22-2017 [facility]UNITY IS ANESTH OF UNSPECIFIED THE BLUE K828 OTHER 04-22-2017 [facility] SPECIFIED PHYSICIANS DISEASES OF GROUP GALLBLADDER [id number] ENCOUNTER 04-20-2017 [place] [facility] PREPROCEDUR INC AL LABORATORY EXAM G249 DYSTONIA 04-15-2017 [facility] UNSPECIFIED PHYSICIANS, PLLC K8050 CALCULUS BD 04-15-2017 [facility] W/O PHYSICIANS, CHOLANGITIS PLLC /CHOLECYST W/O OBST R1010 UPPER 04-09-2017 [facility] PAIN INC UNSPECIFIED R1011 RIGHT UPPER 04-09-2017 [facility] R531 WEAKNESS 03-12-2017 [facility] M545 LOW BACK 03-02-2017 [facility] E663 OVERWEIGHT 02-13-2017 [facility] PHYSIC[facility]ANS GROUP G629 POLYNEUROPA 02-13-2017 [facility] THY PHYSICIANS UNSPECIFIED GROUP M9983 OTHER 02-13-2017 [facility] BIOMECHANIC PHYSICIANS AL LESIONS GROUP OF LUMBAR REGION M546 PAIN IN 02-10-2017 [facility] THORACIC PHYSICIANS, SPINE PLLC R51 HEADACHE 02-05-2017 [facility] PLLC C539 MALIGNANT 01-22-2017 [facility] NEOPLASM OF MEDICAL CERVIX IMAGING ASS UTERI UNSPECIFIED K219 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-22-2017 [facility] P WITHOUT ESOPHAGITIS M542 CERVICALGIA 01-22-2017 [facility] N938 OTHER SPEC 01-22-2017 [facility] ABNORMAL PHYSICIANS, UTERINE & PLLC VAGINAL BLEEDING N939 ABNORMAL 01-22-2017 [facility] UTERINE & MEDICAL VAGINAL IMAGING ASS BLEEDING UNSPECIFIED R55 SYNCOPE AND 01-22-2017 [facility] COLLAPSE [facility] [id number] UNSPECIFIED 01-22-2017 [place] INJURY OF MEDICAL HEAD IMAGING ASS INITIAL ENCOUNTER [id number] UNSPECIFIED 01-22-2017 [facility] INJURY OF MEDICAL NECK IMAGING ASS INITIAL ENCOUNTER Z720 TOBACCO USE 01-22-2017 [facility] P Z8541 PERSONAL 01-22-2017 [facility] HISTORY PHYSICIANS, MALIGNANT PLL NEOPLASM CERVIX UTERI [id number] PAIN IN 01-16-2017 [facility] RIGHT FOOT MEDICAL IM[facility]ING ASS [id number] CONTUSION 01-16-2017 [facility] OF RIGHT PHYSICIANS, FOOT PLLC INITIAL ENCOUNTER [id number] UNSPECIFIED 01-16-2017 [employer] RIGHT FOOT S INC INITIAL ENCOUNTER G4762 SLEEP 01-14-2017 [facility] RELATED LEG PHYSICIANS CRAMPS GROUP M5127 OTH 01-14-2017 [place] INTERVERTEB MEDICAL RAL DISC IMAGING ASS DISPLACEMEN T LS REGION N342 OTHER 01-08-2017 [facility] URETHRITIS PHYSICIANS, [facility] R1030 LOWER 01-08-2017 [facility] ABDOMINAL [facility]ICAL PAIN IMAGING ASS UNSPECIFIED X69634 MIGRAINE 01-04-2017 [facility] W/O AURA PHYSICIANS, NOT INTRACT PLL W/O STAT MIGRAIN D128 BENIGN 12-30-2016 [facility] NEOPLASM OF PHYSICIANS RECTUM GROUP K6289 OTHER 12-30-2016 COMMUNITY SPECIFIED ANESTH OF DISEASES OF THE BLUE ANUS AND RECTUM K648 OTHER 12-30-2016 [facility] HEMORRHOIDS PHYSICIANS GROUP K649 UNSPECIFIED 12-30-2016 COMMUNITY ANESTH OF HEMORRHOIDS THE BLUE K629 DISEASE OF 12-18-2016 [facility] ANUS AND PHYSICIANS RECTUM GROUP UNSPECIFIED E039 HYPOTHYROID 11-05-2016 [facility] ISM PHYSICIANS UNSPECIFIED GROUP Z0000 ENCOUNTER 10-15-2016 [facility] GEN ADULT PHYSICIANS MED EXAM GROUP W/O ABNORMAL FIND R76113O STRAIN 10-13-2016 [facility] MUSCLE PHYSICIANS, FASCIA & PLLC TENDON LOW BACK INITIAL [id number] [facility] 10-01-2016 [facility] COMP OTH ANESTH OF CARD VASC THE BLUE DEVC IMPL INIT ENC Z452 ENCOUNTER 10-01-2016 [facility] ADJUSTMENT& PHYSICIANS MGMT GROUP VASCULAR ACCESS DEVICE Z789 OTHER 09-29-2016 [facility] SPECIFIED PHYSICIANS HEALTH GROUP STATUS C569 MALIGNANT 09-05-2016 [facility] NEOPLASM OF MEDICAL IMAGING ASS UNSPECIFIED OVARY C7989 SECONDARY 09-05-2016 [place] [facility] NEOPLASM INC OT SPECIFIED SITES J62203 MIGRAINE 08-20-2016 [facility] W/AURA NOT PHYSICIANS, INTRACT PLLC W/STATUS MIGRAINOSUS R05 COUGH 03-18-2016 [facility] P R0602 SHORTNESS 03-18-2016 [facility] BREATH MEDICAL IMAGING ASS V58253 MIGRAINE 02-04-2016 [facility] UNS NOT PHYSICIANS, INTRACT W/O PLLC STATUS MIGRAINOSUS R079 CHEST PAIN 12-01-2015 [facility] UNSPECIFIED MEDICAL IMAGING ASS [id number] PAIN D/T 08-30-2015 [facility] IMPL & GRAFTS INITIAL K16924S OTH SPEC 08-30-2015 [facility] H[facility]PITALS IMPL GFT INIT ENC R1012 LEFT UPPER 06-30-2015 [facility] OIL FIELD CASER [facility]ANT PAIN R109 UNSPECIFIED 06-30-2015 [facility] ABDOMINAL [facility]ICAL PAIN IMAGING ASS R197 DIARRHEA 06-30-2015 [facility] OIL FIELD CASER UNSPECIFIED 1809 MALIGNANT 04-25-2015 [facility] NEOPLASM PHI CERVIX UTERI UNSPECIFIED SITE 44200 SOLITARY 04-11-2015 [facility] PULMONARY MEDICAL NODULE IMAGING ASS V1041 PERSONAL 04-11-2015 [place] HISTORY MEDICAL MALIGNANT IMAGING ASS NEOPLASM CERVIX UTERI V711 OBSERVATION 04-11-2015 [place] FOR MEDICAL SUSPECTED IMAGING ASS MALIGNANT NEOPLASM 1749 MALIGNANT 02-28-2015 [place] NEOPLASM OF [facility] P UNSPECIFIED SITE 4660 ACUTE 01-24-2015 [place] BRONCHITIS [facility] P 1991 OTHER 01-16-2015 [facility] MALIGNANT PHYSICIANS NEOPLASM OF GROUP UNSPECIFIED SITE V5881 FITTING AND 01-16-2015 [place] ADJUSTMENT MEDICAL OF IMAGING ASS VASCULAR CATHETER 2331 CARCINOMA 01-12-2015 [place] IN SITU [facility] P UTERI 68284 SHORTNESS 01-06-2015 [facility] MEDICAL IMAGING ASS 37303 NAUSEA WITH 01-06-2015 [facility] VOMITING [facility] P E9331 ANTINEOPLAS 01-06-2015 [place] TIC-IM[facility]UNOS [facility] UPP [facility] P ADVRSE EFF TX USE V5811 ENCOUNTER 01-02-2015 [facility] ANTINEOPLAS TIC CHEMOTHERAP Y 6268 OTH D/O 12-18-2014 [facility] N&OTH ABN BLEED FE GNT TRACT 5718 OTHER 12-01-2014 [place] [facility] NONALCOHOLI FOUNDATION C LIVER DISEASE 5939 UNSPECIFIED 12-01-2014 [place] [facility] DISORDER [facility] OF [facility]OUND[facility] AND URETER 7856 ENLARGEMENT 12-01-2014 [facility] NODES V580 RADIOTHERAP 10-30-2014 [facility] 179 MALIGNANT 10-23-2014 [facility] NEOPLASM OF [facility] UTERUS PART UNSPECIFIED 1800 MALIGNANT 10-19-2014 [place] [facility] NE[facility]LAS[facility] OF SERV ENDOCERVIX FOUNDATION 1968 SEC&UNSPEC 10-18-2014 [facility] NEOPLASM NODES MULTIPLE SITES 2859 UNSPECIFIED 10-04-2014 [facility] 6238 OTHER 10-04-2014 [facility] NONINFLAMMA TORY DISORDER VAGINA 63320 ABDOMINAL 10-04-2014 [place] [facility], SERV UNSPECIFIED FOUNDATION SITE 86813 ABDOMINAL 10-04-2014 [facility] PAIN OTHER HOSPITAL SPECIFIED SITE V153 PERS HX 10-04-2014 [facility] PRESENTING [facility] 7840 HEADACHE 09-20-2014 [facility] 1820 MALIGNANT 09-08-2014 [facility] UTERI EXCEPT ISTHMUS 6262 EXCESSIVE 09-08-2014 [facility] OR [facility] MENSTRUATIO N 1808 MALIGNANT 09-01-2014 [place] [facility] NEOPLAS[facility] OTHER FOUNDATION SPECIFIED SITES CERVIX 65290 ABD/PELVIC 08-30-2014 [facility] MASS/LUMP OTH SPEC SITE 78810 NONGONOCOCC 08-15-2014 [facility] URETHRITIS DEPARTMENT DUE CHLAMYDTRAC HOMATIS 43734 MORBID 08-09-2014 [facility] H ANESTHESIA PSC 6269 UNS D/O 08-07-2014 [facility] N&OTH ABN BLEED FE GNT TRACT V7241 08-07-2014 [place] [facility] OR TEST FOUNDATION NEGATIVE RESULT 4590 UNSPECIFIED 08-03-2014 [facility] 6259 UNSPEC 08-03-2014 [facility] [place] [facility] W/FEMALE GENITAL ORGANS 1123 CANDIDIASIS 02-09-2014 [facility] PAT OF SKIN AND NAILS 25319 ANAL OR 02-09-2014 [facility] PAT RECTAL PAIN V3000 SINGLE 02-16-2003 [facility] P[facility]IA W/O Allergies, Adverse Reactions, Alerts Clinical Alert Notifications Alert Member has >/= 10 ED visits within the past 365 days Medications Na ND Rx Da Fi Fi Am Da Di Ph RX Ph St me C No te ll ll ou ys ag ar # ys at rm s nt no ma ic us Or Da si cy ia de te s n re d DI 68 09 10 60 30 00 HO Ac VA 38 -1 -0 .0 00 ME ti LP 20 1- 6- 00 06 TO ve RO 10 20 20 09 WN EX 60 17 17 [address] AR MA 12 CY 5 MG OF CA CY P NT SP HI RN AN K A AC 00 09 10 60 30 00 HO Ac ET 09 -1 -0 .0 00 ME ti AM 30 1- 6- 00 04 TO ve IN 15 20 20 02 WN OP 01 17 17 36 HE 0 46 PH N- AR CO MA D CY #3 OF TA BL CY ET NT HI AN A BU 69 09 10 60 30 00 HO Ac FL 09 -1 -0 .0 00 ME ti OP 70 1- 6- 00 06 TO ve IO 87 20 20 09 WN N 80 17 17 05 HC 3 76 PH L AR SR MA CY 15 0 OF MG CY TA NT BL HI ET AN A GA 45 08 09 90 30 00 HO Ac BA 96 -1 -1 .0 00 ME ti PE 30 8- 5- 00 04 TO ve NT 55 20 20 02 WN IN 65 17 17 42 0 25 PH 30 AR 0 MA MG CY CA OF PS UL CY E NT HI AN A CL 00 08 09 60 30 00 HO Ac ON 22 -2 -1 .0 00 ME ti AZ 83 1- 5- 00 04 TO ve EP 00 20 20 02 WN AM 35 17 17 32 0 37 PH 0. AR 5 MA MG CY TA OF BL ET CY NT HI AN A LE 00 08 09 30 30 00 HO Ac VO 52 -2 -1 .0 00 ME ti TH 71 1- 5- 00 06 TO ve YR 34 20 20 08 WN OX 10 17 17 91 IN 1 65 PH E AR 25 MA CY MC G OF TA BL CY ET NT HI AN A OM 68 08 09 60 30 00 HO Ac EP 46 -2 -1 .0 00 ME ti RA 20 1- 5- 00 06 TO ve ZO 39 20 20 08 WN LE 61 17 [address] AR MA 20 CY MG OF CA CY PS NT UL HI E AN A BU 69 08 09 60 30 00 HO Ac FL 09 -1 -0 .0 00 ME ti OP 70 1- 8- 00 06 TO ve IO 87 20 20 09 WN N 80 17 17 05 HC 3 76 PH L AR SR MA CY 15 0 OF MG CY TA NT BL HI ET AN A AC 00 08 09 60 30 00 HO Ac ET 09 -1 -0 .0 00 ME ti AM 30 1- 8- 00 04 TO ve IN 15 20 20 02 WN OP 01 17 17 36 HE 0 46 PH N- AR CO MA D CY #3 OF TA BL CY ET NT HI AN A OM 68 07 08 60 30 00 HO Ac EP 46 -2 -1 .0 00 ME ti RA 20 5- 8- 00 06 TO ve ZO 39 20 20 08 WN LE 61 17 [address] AR MA 20 CY MG OF CA CY PS NT UL HI E AN A OX 00 07 08 6. 2 00 RI Ac YC 05 -2 -1 00 00 TE ti OD 40 2- 8- 0 01 ve ON 55 20 20 19 AI E- 12 17 17 27 D AC 5 96 PH ET AR AM MA IN CY OP HE #3 N 93 5- 8 32 5 FL 68 07 08 14 4 00 HO Ac OM 00 -2 -1 .0 00 ME ti ET 10 0- 8- 00 06 TO ve ARROYO 16 20 20 09 WN ZI 20 17 17 10 NE 8 43 PH AR 25 MA CY MG OF TA BL CY ET NT HI AN A LE 00 07 08 30 30 00 HO Ac VO 52 -1 -1 .0 00 ME ti TH 71 8- 1- 00 06 TO ve YR 34 20 20 08 WN OX 10 17 17 91 IN 1 65 PH E AR 25 MA CY MC G OF TA BL CY ET NT HI AN A CL 00 07 08 60 30 00 HO Ac ON 22 -1 -1 .0 00 ME ti AZ 83 8- 1- 00 04 TO ve EP 00 20 20 02 WN AM 35 17 17 32 0 37 PH 0. AR 5 MA MG CY TA OF BL ET CY NT HI AN A AC 00 07 08 60 30 00 HO Ac ET 09 -1 -0 .0 00 ME ti AM 30 2- 4- 00 04 TO ve IN 15 20 20 02 WN OP 01 17 17 36 HE 0 46 PH N- AR CO MA D CY #3 OF TA BL CY ET NT HI AN A BU 69 07 08 60 30 00 HO Ac FL 09 -1 -0 .0 00 ME ti OP 70 2- 4- 00 06 TO ve IO 87 20 20 09 WN N 80 17 17 05 HC 3 76 PH L AR SR MA CY 15 0 OF MG CY TA NT BL HI ET AN A OM 68 06 07 60 30 00 HO Ac EP 46 -2 -2 .0 00 ME ti RA 20 8- 1- 00 06 TO ve ZO 39 20 20 08 WN LE 61 17 [address] AR MA 20 CY MG OF CA CY PS NT UL HI E AN A BU 68 06 07 60 30 00 HO Ac FL 00 -1 -1 .0 00 ME ti OP 10 5- 4- 00 06 TO ve IO 30 20 20 08 WN N 80 17 17 90 HC 0 23 PH L AR 75 MA CY MG OF TA BL CY ET NT HI AN A CL 00 06 07 60 30 00 HO Ac ON 22 -1 -1 .0 00 ME ti AZ 83 5- 4- 00 04 TO ve EP 00 20 20 02 WN AM 35 17 17 32 0 37 PH 0. AR 5 MA MG CY TA OF BL ET CY NT HI AN A AC 00 06 07 40 20 00 HO Ac ET 09 -1 -1 .0 00 ME ti AM 30 5- 4- 00 04 TO ve IN 15 20 20 02 WN OP 01 17 17 32 HE 0 36 PH N- AR CO MA D CY #3 OF TA BL CY ET NT HI AN A GA 45 06 07 90 30 00 HO Ac BA 96 -1 -1 .0 00 ME ti PE 30 9- 4- 00 06 TO ve NT 55 20 20 08 WN IN 65 17 17 73 0 84 PH 30 AR 0 MA MG CY CA OF PS UL CY E NT HI AN A LE 00 06 07 30 30 00 HO Ac VO 52 -1 -1 .0 00 ME ti TH 71 6- 4- 00 06 TO ve YR 34 20 20 08 WN OX 10 17 17 91 IN 1 65 PH E AR 25 MA CY MC G OF TA BL CY ET NT HI AN A BU 00 05 06 40 14 00 HO Ac TA 59 -3 -2 .0 00 ME ti LB 13 1- 3- 00 04 TO ve -A 36 20 20 02 WN CE 90 17 17 30 TA 5 04 PH DC AR N- MA CA CY FF OF 50 -3 CY 25 NT -4 HI 0 AN A TO 68 05 06 30 30 00 HO Ac PI 46 -3 -2 .0 00 ME ti RA 20 1- 3- 00 06 TO ve MA 10 20 20 08 WN TE 81 17 17 80 0 55 PH 25 AR MA MG CY TA OF BL ET CY NT HI AN A OM 68 05 06 60 30 00 HO Ac EP 46 -2 -2 .0 00 ME ti RA 20 5- 3- 00 06 TO ve ZO 39 20 20 08 WN LE 61 17 [address] AR MA 20 CY MG OF CA CY PS NT UL HI E AN A CI 65 05 06 30 30 00 HO Ac TA 16 -1 -1 .0 00 ME ti LO 20 9- 6- 00 06 TO ve FL 05 20 20 08 WN AM 35 17 17 73 0 85 PH HB AR R MA 20 CY MG OF TA CY BL NT ET HI AN A GA 45 05 06 90 30 00 HO Ac BA 96 -1 -1 .0 00 ME ti PE 30 9- 6- 00 06 TO ve NT 55 20 20 08 WN IN 65 17 17 73 0 84 PH 30 AR 0 MA MG CY CA OF PS UL CY E NT HI AN A ME 31 05 06 10 3 00 HO Ac TH 72 -1 -0 .0 00 ME ti OC 20 7- 9- 00 06 TO ve AR 53 20 20 08 WN BA 40 17 17 71 MO 5 76 PH L AR 75 MA 0 CY MG OF TA BL CY ET NT HI AN A NA 68 05 06 14 7 00 HO Ac FL 46 -1 -0 .0 00 ME ti OX 20 7- 9- 00 06 TO ve EN 19 20 20 08 WN 00 17 17 71 50 5 75 PH 0 AR MG MA CY TA BL OF ET CY NT HI AN A HY 00 05 06 [address] 40 -1 -0 .0 00 TE ti OC 60 6- 9- 00 01 ve OD 12 20 20 18 AI ON 30 17 17 42 D -A 1 40 PH CE AR TA MA DC CY NO PH #3 EN 93 8 5- 32 5 HY 00 04 05 [address] 60 -2 -2 .0 00 ME ti OC 33 7- 6- 00 02 TO ve OD 89 20 20 01 WN ON 03 17 17 34 -A 2 67 PH CE AR TA MA DC CY NO PH OF EN CY 5- NT 32 HI 5 AN A GA 45 05 05 30 15 00 HO Ac BA 96 -0 -2 .0 00 ME ti PE 30 1- 6- 00 06 TO ve NT 55 20 20 08 WN IN 55 17 17 61 0 54 PH 10 AR 0 MA MG CY CA OF PS UL CY E NT HI AN A OM 68 04 05 60 30 00 HO Ac EP 46 -2 -1 .0 00 ME ti RA 20 5- 9- 00 06 TO ve ZO 39 20 20 08 WN LE 61 17 [address] AR MA 20 CY MG OF CA CY PS NT UL HI E AN A TR 59 04 05 1. 1 00 HO Ac IA 76 -1 -1 00 00 ME ti ZO 23 4- 2- 0 04 TO ve LA 71 20 20 02 WN M 80 17 17 22 0. 4 98 PH 25 AR MA MG CY TA OF BL ET CY NT HI AN A PH 51 04 05 12 4 00 HO Ac EN 29 -1 -1 .0 00 ME ti AZ 30 4- 2- 00 06 TO ve OP 80 20 20 08 WN YR 20 17 17 50 ID 1 60 PH IN AR E MA 20 CY 0 MG OF TA CY B NT HI AN A CI 16 04 05 14 7 00 HO Ac FL 57 -1 -1 .0 00 ME ti OF 10 4- 2- 00 06 TO ve LO 41 20 20 08 WN XA 25 17 17 50 CI 0 59 PH N AR HC MA L CY 50 0 OF MG CY TA NT B HI AN A GA 45 04 05 14 14 00 HO Ac BA 96 -1 -1 .0 00 ME ti PE 30 9- 2- 00 06 TO ve NT 55 20 20 08 WN IN 55 17 17 54 0 09 PH 10 AR 0 MA MG CY CA OF PS UL CY E NT HI AN A HY 00 04 05 [address] 60 -1 -1 .0 00 ME ti OC 33 7- 2- 00 02 TO ve OD 89 20 20 01 WN ON 03 17 17 34 -A 2 26 PH CE AR TA MA DC CY NO PH OF EN CY 5- NT 32 HI 5 AN A OM 62 03 04 60 30 00 HO Ac EP 17 -2 -2 .0 00 ME ti RA 50 3- 1- 00 06 TO ve ZO 11 20 20 08 WN LE 84 17 [address] AR MA 20 CY MG OF CA CY PS NT UL HI E AN A HY 00 03 04 [address] 60 -2 -2 .0 00 ME ti OC 33 3- 1- 00 02 TO ve OD 89 20 20 01 WN ON 03 17 17 32 -A 2 24 PH CE AR TA MA DC CY NO PH OF EN CY 5- NT 32 HI 5 AN A PE 10 03 04 40 1 00 HO Ac G- 57 -2 -2 00 00 ME ti 33 20 3- 1- .0 06 TO ve 50 10 20 20 00 08 WN 00 17 17 30 AN 1 39 PH D AR EL ROSIO EC CY TR OL OF YT ES CY NT SO HI LN AN A OM 68 02 03 60 30 00 HO Ac EP 46 -2 -1 .0 00 ME ti RA 20 0- 7- 00 06 TO ve ZO 39 20 20 08 WN LE 61 17 [address] AR MA 20 CY MG OF CA CY PS NT UL HI E AN A HY 00 02 03 [address] 60 -0 -0 .0 00 ME ti OC 33 8- 3- 00 02 TO ve OD 89 20 20 01 WN ON 03 17 17 28 -A 2 34 PH CE AR TA MA DC CY NO PH OF EN CY 5- NT 32 HI 5 AN A OM 68 01 02 60 30 00 HO Ac EP 46 -1 -1 .0 00 ME ti RA 20 8- 0- 00 06 TO ve ZO 39 20 20 07 WN LE 61 17 [address] AR MA 20 CY MG OF CA CY PS NT UL HI E AN A FL 68 01 02 12 30 00 HO Ac OM 38 -1 -1 0. 00 ME ti ET 20 8- 0- 00 06 TO ve ARROYO 04 20 20 0 07 WN ZI 00 17 17 97 NE 1 55 PH AR 12 MA .5 CY MG OF TA CY BL NT ET HI AN A FL 59 01 02 10 5 00 HO Ac ED 74 -1 -1 .0 00 ME ti NI 60 7- 0- 00 06 TO ve SO 17 20 20 07 WN NE 50 17 17 96 9 43 PH 20 AR MA MG CY TA OF BL ET CY NT HI AN A CY 00 01 02 15 5 00 HO Ac CL 60 -1 -1 .0 00 ME ti OB 33 7- 0- 00 06 TO ve EN 07 20 20 07 WN ZA 93 17 17 96 FL 2 42 PH IN AR E MA 10 CY MG OF TA CY BL NT ET HI AN A HY 13 01 01 [address] 10 -0 -2 .0 00 IN ti OC 70 4- 7- 00 00 IC ve OD 01 20 20 41 ON 90 17 17 81 PH -A 5 73 AR CE MA TA CY DC NO PH EN 5- 32 5 OM 68 12 01 30 30 00 HO Ac EP 46 -2 -1 .0 00 ME ti RA 20 1- 3- 00 06 TO ve ZO 39 20 20 07 WN LE 71 16 [address] AR MA 40 CY MG OF CA CY PS NT UL HI E AN A Procedures Procedure DOS Code Location Performer Comment ANES [id number] COMMUNITY FEEBACK INTRAPERI 7 ANESTH TONEAL OF THE UPPER BLUE ABDOMEN W/LAPS NOS LAPAROSCO 42147 [facility] MARYCRUZ BEAN PY SURG 7 PHYSICIAN CHOLECYST S GROUP ECTOMY URINE [id number] [facility] MAGDALENO 7 [facility] TEST INC INC VISUAL COLOR CMPRSN METHS BLOOD 81219 [facility] MAGDALENO COUNT 7 [facility] COMPLETE INC INC AUTO&[place] [address] SH[facility] MAGDALENO AMYLASE 7 [facility] [place] [address] SH[facility] MAGDALENO LIPASE 7 [facility] INC INC COLLECTIO 26861 SH[facility] MAGDALENO N VENOUS 7 [facility] BLOOD INC INC VENIPUNCT URE COMPREHEN [id number] SH[facility] MAGDALENO SIVE 7 [facility] [place] [address] [facility] MAGDALENO INFUSION 7 [facility] THERAPY/P INC INC ROPHYLAXI S /DX 1ST TO 1 HR THERAPEUT 67084 SHARLA MAGDALENO IC 7 [facility] INJECTION INC INC IV PUSH EACH NEW DRUG URNLS DIP 73411 SHARLA MAGDALENO 7 [facility] STICK/TAB INC INC LET REAGENT AUTO MICROSCOP Y BLOOD 88487 SHARLA MAGDALENO COUNT 7 [facility] COMPLETE INC INC AUTO&[place] [address] SHARLA MAGDALENO LIPASE 7 [facility] [place] [address] SHARLA MAGDALENO ABDOMEN & 7 [facility] PELVIS INC INC W/[place] [address] SHARLA MAGDALENO AMYLASE 7 [facility] INC INC COMPREHEN 95610 SHARLA MAGDALENO SIVE 7 [facility] METABOLIC INC INC PANEL URINE 59558 SH[facility]LA MAGDALENO 7 [facility] TEST INC INC VISUAL COLOR CMPRSN METHS HEPATOBIL 01513 [place] [facility] SYST 7 [facility]AG INC IMAGING GB ASS W/PHARMA INTERVENJ TECHNETIU A9537 SHARLA MAGDALENO M [id number]-99M 7 [facility] MEBROFENI INC INC N DX [place] 15 [place] [address] SHARLA MAGDALENO ABDOMINAL 7 [facility] REAL INC INC TIME W/[place] [address] SHARLA MAGDALENO THYROID 7 [facility] STIMULATI [place] [address] SHARLA MAGDALENO THYROXINE 7 [facility] TOTAL INC INC COLLECTIO 86315 SHARLA MAGDALENO N VENOUS 7 [facility] BLOOD INC INC VENIPUNCT URE THERAPEUT 08588 SHARLA MAGDALENO IC PX 1/> 7 [facility] AREAS INC INC EACH 15 MIN EXERCISES APPL 54016 SHARLA MAGDALENO MODALITY 7 [facility] 1/> AREAS INC INC TRACTION MECHANICA L APPL 77809 SHARLA MAGDALENO MODALITY 7 [facility] 1/> AREAS INC INC ELEC STIMJ UNATTENDE D APPLICATI 39476 SHARLA MAGDALENO ON 7 [facility] MODALITY INC INC 1/> AREAS HOT/COLD PACKS APPL 32165 SHARLA MAGDALENO MODALITY 7 [facility] 1/> AREAS INC INC ULTRASOUN D EA 15 MIN APPLICATI 57043 SHARLA MAGDALENO ON 7 [facility] MODALITY INC INC 1/> AREAS HOT/COLD PACKS APPL 92771 SHARLA MAGDALENO MODALITY 7 [facility] 1/> AREAS INC INC TRACTION MECHANICA L APPL 36964 SHARLA MAGDALENO MODALITY 7 [facility] 1/> AREAS INC INC ELEC STIMJ UNATTENDE D THERAPEUT 25751 SHARLA SHARLA IC PX 1/> 7 [facility] AREAS INC INC EACH 15 MIN EXERCISES PHYSICAL 94865 SHARLA MAGDALENO THERAPY 7 [facility] [facility] EVALUATIO INC INC N LOW COMPLEX 20 MINS FINAL G9638 MICHELLE STACY REPORTS 7 MEDICAL W/O DOC IMAGING 1/[place] [address] [facility] HEAD/BRAI 7 MEDICAL N W/O IMAGING CONTRAST ASS MATERIAL FINAL G9638 [facility] [place] [place] [facility] REPORTS 7 MEDICAL W/O DOC IMAGING 1/MORE ASS DOSE REDUCTION TECH COMPREHEN 50134 SHARLA LINON SIVE 7 [facility] METABOLIC INC INC PANEL FINAL RPT G[address]/MRI 7 MEDICAL CHEST/NCK IMAGING /U/S NO ASS THR NOD<1.0 CM ECG 80170 SHARLA MAGDALENO ROUTINE 7 [facility] ECG INC INC W/LEAST 12 LDS TRCG ONLY W/O I&[place] [address] MICHELLE STACY CERVICAL 7 MEDICAL SPINE W/O IMAGING CONTRAST ASS MATERIAL CREATINE 35117 SHARLA MAGDALENO KINASE MB 7 [facility] [place] [address] MICHELLE STACY HEAD/BRAI 7 MEDICAL N W/O IMAGING [place] [address] [facility] TRANSVAGI 7 MEDICAL MEDICAL NAL IMAGING IMAGING ASS ASS CREATINE 04241 SHARLA MAGDALENO KINASE 7 [facility] [place] [address] SHARLA MAGDALENO TROPONIN 7 [facility] QUANTITAT INC INC VINCENT ECG 28824 COLIN GRAMAJO ROUTINE 7 PHYSICIAN ECG S, PLLC W/LEAST 12 LDS I&R ONLY BLOOD 89240 SHARLA MAGDALENO COUNT 7 [facility] COMPLETE INC INC AUTO&AUTO DIFRNTL WBC CRTCHS E0114 [facility] UNDARM 7 TECHNOLOG TECHNOLOG OTH THAN IES INC IES INC WOOD PAIR PAD TIP&HNDGR IP RADEX 18344 MICHELLE STACY FOOT 7 MEDICAL COMPLETE IMAGING MINIMUM 3 ASS VIEWS COLLECTIO 23529 [facility] FRYMAN N VENOUS 7 PHYSICIAN BLOOD S GROUP VENIPUNCT URE COMPREHEN 70270 SHARLA MAGDALENO SIVE 7 [facility] [address] SHARLA MAGADLENO MAGNESIUM 7 [facility] INC INC 3D 66510 MICHELLE STACY RENDERING 7 MEDICAL W/INTERP IMAGING & ASS POSTPROCE SS SUPERVISI ON MRI 33523 MICHELLE STACY SPINAL 7 MEDICAL CANAL IMAGING LUMBAR ASS W/O CONTRAST MATERIAL CULTURE 52131 SHARLA MAGDALENO BACTERIAL 7 [facility] INC [place] [address] MICHELLE STACY ABDOMEN & 7 MEDICAL PELVIS IMAGING W/O ASS CONTRAST MATERIAL URNLS DIP 91251 SHARLA MAGDALENO 7 [facility] STICK/TAB INC INC LET REAGENT AUTO MICROSCOP Y FINAL G9638 MICHELLE STACY REPORTS 7 MEDICAL W/O DOC IMAGING 1/MORE ASS DOSE REDUCTION TECH FINAL G9551 MICHELLE STACY REPR ABD 7 MEDICAL IMAG STS IMAGING W/O ASS INCIDNT FND LES NTD: THER 55130 SHARLA MAGDALENO PROPH/DX 7 [facility] NJX IV INC INC PUSH SINGLE/1S T SBST/DRUG THERAPEUT 35222 SHARLA MAGDALENO IC 7 [facility] INJECTION INC INC IV PUSH EACH NEW DRUG THER 19055 SHARLA MAGDALENO PROPH/DX 7 [facility] NJX EA INC INC SEQL IV PUSH SBST/DRUG FAC URINE 98123 SHARLA MAGDALENO 7 [facility] TEST INC INC VISUAL COLOR CMPRSN METHS COLONOSCO 62833 SHARLA MAGDALENO PY FLX DX 7 [facility] W/COLLJ INC INC SPEC WHEN PFRMD ANES 49761 [facility] 7 ANESTH INTESTINE OF THE BLUE ENDOSCOPY DISTAL DUODENUM THERAPEUT 66544 SHARLA MAGDALENO IC PX 1/> 7 [facility] AREAS INC INC EACH 15 MIN EXERCISES APPL 25572 SHARLA MAGDALENO MODALITY 7 [facility] 1/> AREAS INC INC ELEC STIMJ UNATTENDE D APPLICATI 11917 SHARLA MAGDALENO ON 7 [facility] MODALITY INC INC 1/> AREAS HOT/COLD PACKS PHYSICAL 33016 SHARLA MAGDALENO THERAPY 7 [facility] EVALUATIO INC INC N MOD COMPLEX 30 MINS BLOOD 89658 SHARLA MAGDALENO COUNT 7 [facility] COMPLETE INC INC AUTO&AUTO DIFRNTL WBC HEPATITIS 23369 SHARLA MAGDALENO C 7 [facility] [place] [address] SHARLA MAGDALENO FREE 7 [facility] [place] [address] SHARLA MAGDALENO THYROID 7 [facility] STIMULATI INC INC NG HORMONE TSH HEPATITIS 50732 SHARLA MAGDALENO B CORE 7 [facility] [place] [address] SHARLA MAGDALENO HEPATITIS 7 [facility] B INC INC SURFACE ANTIGEN INF AGT G0432 SHARLA MAGDALENO AB DETECT 7 [facility] EIA TECH INC INC HIV-1&/HI V-2 SCR COMPREHEN 55060 SHARLA MAGDALENO SIVE 7 [facility] METABOLIC INC INC PANEL COLLECTIO 97053 SHARLA MAGDALENO N VENOUS 7 [facility] BLOOD INC INC VENIPUNCT URE HEPATITIS 84202 SHARLA MAGDALENO A 7 [facility] ANTIBODY INC INC HAAB RADEX 42200 [place] STACY SPINE 7 MEDICAL LUMBOSACR IMAGING AL 2/3 ASS VIEWS RADEX 61018 SHARLA MAGDALENO SPINE 7 [facility] LUMBOSACR INC INC AL MINIMUM 4 VIEWS GONADOTRO 17943 SHARLA MAGDALENO PIN 7 [facility] CHORIONIC INC INC QUALITATI VE ANES 86765 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 CTR/PRPH INSJ BLOOD 52924 SHARLA MAGDALENO COUNT 7 [facility] COMPLETE INC INC AUTO&AUTO DIFRNTL WBC COLLECTIO 48681 SHARLA MAGDALENO N VENOUS 7 [facility] BLOOD INC INC VENIPUNCT URE BASIC 38725 SHARLA MAGDALENO METABOLIC 7 [facility] [address] [place] STACY ABDOMEN & 6 MEDICAL PELVIS IMAGING W/CONTRAS ASS T MATERIAL ECG 33881 SHARLA BANG JR ROUTINE 6 [facility] W/LEAST P 12 LDS I&R ONLY RHYTHM 93161 SHARLA MAGDALENO ECG 1-3 6 [facility] LEADS INC INC TRACING ONLY W/O I&R BLOOD 55427 SHARLA MAGDALENO COUNT 6 [facility] COMPLETE INC INC AUTO&[place] [address] SHARLA MAGDALENO TROPONIN 6 [facility] QUANTITAT INC INC VINCENT RADIOLOGI 28920 SHARLA MAGDALENO C EXAM 6 [facility] CHEST 2 INC INC VIEWS FRONTAL&L ATERAL CREATINE 22393 SHARLA MAGDALENO KINASE MB 6 [facility] FRACTION INC INC ONLY CREATINE 03726 SHARLA MAGDALENO KINASE 6 [facility] TOTAL INC INC THER 22568 SHARLA MAGDALENO PROPH/DX 6 [facility] NJX IV INC INC PUSH SINGLE/1S T SBST/DRUG ECG 71779 SHARLA MAGDALENO ROUTINE 6 [facility] ECG INC INC W/LEAST 12 LDS TRCG ONLY W/O I&R COMPREHEN 66328 SHARLA MAGDALENO SIVE 6 [facility] [place] [address] [place] NICO HEAD/BRAI 6 MEDICAL ALEJANDRA N W/O IMAGING CONTRAST ASS MATERIAL CT THORAX 17482 [place] STACY ALL 6 MEDICAL W/CONTRAS IMAGING T ASS MATERIAL RADIOLOGI 06233 [place] STACY ALL C EXAM 6 MEDICAL CHEST 2 IMAGING VIEWS ASS FRONTAL&L ATERAL FLUORODEO A9552 [facility] XYGLUCOSE 5 Y Y F-18 FDG [facility] DX UP TO 45 MCI PET 29971 [place] МАРИЯ IMAGING [address] SERV ATTENUATI FOUNDATIO ON SKULL N BASE MID-THIGH COMPREHEN 55483 [place] [facility] SIVE 5 [facility] METABOLIC E E PANEL [facility] FLUORO 42750 [place] CENTRAL 5 [facility]ALTH[facility] VENOUS E E ACCESS [facility] DEV PLACEMENT INJECTION J1644 [facility] HEPARIN 5 [facility]ALTH[facility] HEALTHCAR SODIUM E E PER 1000 [facility] UN[facility] INJECTION J0690 [facility] 5 [facility]ALTHCAR HEALTHCAR CEFAZOLIN E E SODIUM [facility] 500 MG INJECTION J1642 [facility] HEPARIN 5 [facility]ALTHCAR HEALTHCAR SODIUM E E PER 10 [facility] UNITS INSJ 65931 [place] TUNNELED 5 HEALTHCAR HEALTHCAR CTR VAD E E W/SUBQ [facility] PORT AGE 5 YR/> INJECTION J2250 [place] 5 HEALTHCAR HEALTHCAR MIDAZOLAM E E HCL PER [facility] 1 MG PROTHROMB 02198 [place] IN TIME 5 HEALTHCAR HEALTHCAR E E HOSPITALS [facility] US VASC 75915 [place] ACCESS 5 HEALTHCAR HEALTHCAR SITS VSL E E PATENCY [facility] NDL ENTRY GLUCOSE 48836 [place] [facility] QUANTITAT 5 HEALTHCAR HEALTHCAR VINCENT BLOOD E E XCPT [facility] REAGENT STRIP BLOOD 31600 [place] [facility] COUNT 5 HEALTHCAR HEALTHCAR COMPLETE E E AUTOMATED [facility] RMVL JAYJAY 47832 [place] CTR VAD 5 HEALTHCAR HEALTHCAR W/SUBQ E E 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 [facility] CTR/PRPH INSJ GUIDE C1769 [place] [facility] WIRE 5 HEALTHCAR HEALTHCAR E E HOSPITALS HOSPITALS PORT C1788 [facility] INDWELLIN 5 HEALTHCAR HEALTHCAR G E E HOSPITALS HOSPITALS INJECTION J1200 [place] [facility] 5 HEALTHCAR HEALTHCAR DIPHENHYD E E RAMINE [facility] HCL UP TO 50 MG INJECTION J3010 [facility] FENTANYL 5 HEALTHCAR HEALTHCAR CITRATE E E 0.1 MG [facility] INFUSION J7030 [place] NORMAL 5 HEALTHCAR HEALTHCAR SALINE E E SOLUTION [facility] [address] THORAX [address]64 [place] AYOOB AND 5 MEDICAL W/[place] [address] [place] AYOOB AND ABDOMEN & 5 MEDICAL PELVIS SERV W/CONTRAS FOUNDATIO T N MATERIAL LOCM Q9967 [facility] 300-399 5 Y Y MG/ML [facility] [place] [address] MICHELLE STACY ALL ABDOMEN & 5 MEDICAL PELVIS IMAGING W/O ASS CONTRAST MATERIAL LOCM Q9967 SHARLA MAGDALENO 300-399 5 [facility] MG/ML INC [place] [address] MICHELLE STACY ALL ABDOMEN & 5 MEDICAL PELVIS IMAGING W/CONTRAS ASS T MATERIAL URNLS DIP 90064 SHARLA MAGDALENO 5 [facility] STICK/TAB INC INC LET REAGENT AUTO MICROSCOP Y INJECTION J1642 SHARLA MAGDALENO HEPARIN 5 [facility] SODIUM INC INC PER 10 UNITS CULTURE 54176 SHARLA MAGDALENO BACTERIAL 5 [facility] INC INC QUANTTATI VE COLONY COUNT URINE CT THORAX 85838 MICHELLE STACY ALL 5 MEDICAL W/CONTRAS IMAGING T ASS MATERIAL CHEMOTX 08559 SHARLA MAGDALENO ADMN IV 5 [facility] NFS TQ UP INC INC 1 HR SBST/DRUG INJECTION J1642 SHARLA MAGDALENO HEPARIN 5 [facility] SODIUM INC INC PER 10 UNITS COMPREHEN 83709 SHARLA MAGDALENO SIVE 5 [facility] METABOLIC INC INC PANEL BLOOD 32098 SHARLA MAGDALENO COUNT 5 [facility] COMPLETE INC INC AUTO&AUTO DIFRNTL WBC GRANISETR Q0166 SHARLA MAGDALENO ON HCL 1 5 [facility] MG ORL INC INC NOT >48 HR DOSE REGIMEN GRANISETR Q0166 SHARLA MAGDALENO ON HCL 1 5 [facility] MG ORL INC INC NOT >48 HR DOSE REGIMEN CHEMOTHER 82635 SHARLA MAGDALENO APY ADMN 5 [facility] IV INC INC INFUSION TQ EA HR INJECTION J9267 SHARLA MAGDALENO 5 [facility] PACLITAXE INC INC L 1 MG INJECTION J1642 SHARLAYENY MAGDALENO HEPARIN 5 [facility] SODIUM INC INC PER 10 UNITS CHEMOTX 01243 SHARLA MAGDALENO ADMN IV 5 [facility] NFS TQ EA INC INC SEQL NFS TO 1 HR CHEMOTX 33163 SHARLA MAGDALENO ADMN IV 5 [facility] NFS TQ UP INC INC 1 HR / SBST/DRUG INJECTION J9045 SHARLA MAGDALENO 5 [facility] CARBOPLAT INC INC IN 50 MG COLLECTIO 78189 SHARLA MAGDALENO N VENOUS 5 [facility] BLOOD INC INC VENIPUNCT URE COMPREHEN 71215 SHARLA MAGDALENO SIVE 5 [facility] METABOLIC INC INC PANEL BLOOD 59624 SHARLA MAGDALENO COUNT 5 [facility] COMPLETE INC INC AUTO&AUTO DIFRNTL WBC ANESTHESI 06524 [facility] A ACCESS 5 ANESTH CENTRAL OF THE VENOUS BLUE CIRCULATI ON INSJ 39623 [facility] REMIGIO TUNNELED 5 PHYSICIAN CAM CTR VAD S GROUP W/SUBQ PORT AGE 5 YR/> FLUORO 23741 SHARLA MAGDALENO CENTRAL 5 [facility] VENOUS INC INC ACCESS DEV PLACEMENT INJECTION J1642 SHARLA MAGDALENO HEPARIN 5 [facility] SODIUM INC INC PER 10 UNITS INJECTION J0131 SHARLA MAGDALENO 5 [facility] ACETAMINO INC INC PHEN 10 MG INJECTION J2405 SHARLA MAGDALENO 5 [facility] ONDANSETR INC INC ON HCL PER 1 MG RADIOLOGI 07354 [place] NICO C 5 MEDICAL ALEJANDRA EXAMINATI IMAGING ON CHEST ASS SINGLE VIEW FRONTAL PORT C1788 SHARLA MAGDALENO INDWELLIN 5 [facility] G INC INC BASIC 81038 SHARLA MAGDALENO METABOLIC 5 [facility] PANEL INC INC CALCIUM TOTAL COLLECTIO 98830 SHARLA MAGDALENO N VENOUS 5 [facility] BLOOD INC INC VENIPUNCT URE ECG 17251 SHARLA MAGDALENO ROUTINE 5 [facility] ECG INC INC W/LEAST 12 LDS TRCG ONLY W/O I&R GONADOTRO 48528 SHARLA MAGDALENO PIN 5 [facility] CHORIONIC INC INC QUALITATI VE BLOOD 56795 SHARLA MAGDALENO COUNT 5 [facility] COMPLETE INC INC AUTO&AUTO DIFRNTL WBC ECG 25573 SHARLA BANG JR ROUTINE 5 [facility] W/LEAST P 12 LDS I&R ONLY BLOOD 17456 SHARLA MAGDALENO COUNT 5 [facility] COMPLETE INC INC AUTO&AUTO DIFRNTL WBC COMPREHEN 91042 SHARLA MAGDALENO SIVE 5 [facility] METABOLIC INC INC PANEL HOSPITAL G0463 SAHRLA MAGDALENO OUTPATIEN 5 [facility] T CLIN INC INC VISIT ASSESS & MGMT PT RADIOLOGI 39065 [facility] [place] [place] NICO Martinez 5 MEDICAL ALEJANDRA EXAMINATI IMAGING ON CHEST ASS SINGLE VIEW FRONTAL ECG 85920 SHARLA BANG JR ROUTINE 5 [facility] W/LEAST P 12 LDS I&R ONLY THERAPEUT 07160 SHARLA MAGDALENO IC 5 [facility] INJECTION INC INC IV PUSH EACH NEW DRUG FLUORODEO A9552 [facility] UNIVERS XYGLUCOSE 5 Y Y F-18 FDG [facility] DX UP TO 45 MCI PET 66368 [place] МАРИЯ IMAGING [address] SERV ATTENUATI FOUNDATIO ON SKULL N BASE MID-THIGH COMPREHEN 19494 SHARLA MAGDALENO SIVE 5 [facility] METABOLIC INC INC PANEL INJECTION J1642 SAHRLA MAGDALENO HEPARIN 5 [facility] SODIUM INC INC PER 10 UNITS BLOOD 65833 SHARLA MAGDALENO COUNT 5 [facility] COMPLETE INC INC AUTO&AUTO DIFRNTL WBC THERAPEUT 28036 [facility] IC 5 Y Y INJECTION HOSPITAL HOSPITAL IV PUSH EACH NEW DRUG CHEMOTHER 10809 [facility] APY ADMN 5 Y Y IV HOSPITAL HOSPITAL INFUSION TQ EA HR ONDANSETR Q0162 [facility] ON 1 MG 5 Y Y ORL NOT [facility] EXCEED 48 HR DOSE REG INJECTION J2060 [facility] 5 Y Y LORAZEPAM [facility] 2 MG CHEMOTX 53016 [facility] ADMN IV 5 Y Y NFS TQ [facility] SEQL NFS TO 1 HR INJ J1720 [facility] HYDROCORT 5 Y Y [facility] SUCCIN[facility] TO 100 MG INJECTION J9267 [facility] 5 Y Y PACLITAXE [facility] L 1 MG INFUSION J7040 [facility] NORMAL 5 Y Y SALINE [facility] SOLUTION STERILE CHEMOTX 66676 [facility] ADMN IV 5 Y Y NFS TQ [facility] 1 HR SBST/DRUG INJECTION J9045 [facility] 5 Y Y [facility] IN 50 MG DEXAMETHA J8540 [facility] SONE ORAL 5 Y Y 0.25 [facility] HOSPITAL [facility]PITAL INJECTION J1200 [facility] 5 Y Y [facility] RAMINE HCL UP TO 50 MG INFUSION J7050 [facility] NORMAL 5 Y Y [facility] SOLUTION 250 CC COMPREHEN 58575 SHARLA MAGDALENO SIVE 5 [facility] METABOLIC INC INC PANEL INJECTION J1642 SHARLA MAGDALENO HEPARIN 5 [facility] SODIUM INC INC PER 10 UNITS BLOOD 23015 SHARLA MAGDALENO COUNT 5 [facility] COMPLETE INC INC AUTO&AUTO DIFRNTL WBC IRRIGAJ 35949 SHARLA MAGDALENO IMPLNTD 5 [facility] VENOUS INC INC ACCESS DRUG DELIVERY SYST BLOOD 02358 SHARLA MAGDALENO COUNT 5 [facility] COMPLETE INC INC AUTO&AUTO DIFRNTL WBC INJECTION J1642 SHARLA MAGDALENO HEPARIN 5 [facility] SODIUM INC INC PER 10 UNITS COLLECTIO 46198 SHARLA MAGDALENO N VENOUS 5 [facility] BLOOD INC INC VENIPUNCT URE COMPREHEN 71542 SHARLA MAGDALENO SIVE 5 [facility] METABOLIC INC INC PANEL INSJ PRPH 19558 [facility] CVC W/O 5 Y Y SUBNYU [facility] 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 AGE 5 YR/> CHEMOTX 60128 [facility] ADMN IV 5 Y Y NFS TQ UP [facility] 1 HR SBST/DRUG INJECTION J1200 [facility] UNIVERS 5 Y Y DIPHENHYD [facility] RAMINE HCL UP TO 50 MG DEXAMETHA J8540 [facility] SONE ORAL 5 Y Y 0.25 MG HOSPITAL HOSPITAL INFUSION J7050 [facility] NORMAL 5 Y Y SALINE [facility] SOLUTION 250 CC COMPREHEN 36599 [facility] SIVE 5 Y Y METABOLIC [facility] PANEL INJ J1720 [facility] HYDROCORT 5 Y Y [facility] SODIUM SUCCINATE TO 100 MG INJECTION J9267 [facility] 5 Y Y PACLITAXE [facility] L 1 MG INFUSION J7040 [facility] NORMAL 5 Y Y SALINE [facility] SOLUTION STERILE INJECTION J2060 [facility] 5 Y Y LORAZEPAM [facility] 2 MG CHEMOTX 09770 [facility] ADMN IV 5 Y Y NFS TQ EA [facility] SEQL NFS TO 1 HR BLOOD 29658 [facility] COUNT 5 Y Y COMPLETE [facility] AUTO&AUTO DIFRNTL WBC CHEMOTHER 11918 [facility] APY ADMN 5 Y Y IV HOSPITAL HOSPITAL INFUSION TQ EA HR THERAPEUT 20148 [facility] IC 5 Y Y INJECTION [facility] IV PUSH EACH NEW DRUG ONDANSETR Q0162 [facility] ON 1 MG 5 Y Y ORL NOT [facility] EXCEED 48 HR DOSE REG LOCM Q9967 [facility] 300-399 5 Y Y MG/ML [facility] [place] [address] [facility] ABDOMEN & 5 Y Y PELVIS [facility] W/CONTRAS T MATERIAL CT SOFT 77479 [place] RASLAU TISSUE 5 MEDICAL FLA NECK SERV W/CONTRAS FOUNDATIO T N MATERIAL CT THORAX 98235 [facility] 5 Y Y W/[facility] T MATERIAL INJECTION J2405 [facility] 5 Y [facility] ON HCL PER 1 MG CONTINUIN 61639 [facility] G MEDICAL 5 Y Y PHYSICS [facility] CONSLTJ FL WK INJECTION J1200 [facility] 5 Y Y DIPHENHYD [facility] RAMINE HCL UP TO 50 MG INFUSION J7030 [facility] NORMAL 5 Y Y SALINE [facility] SOLUTION 1000 CC INJECTION J2704 [facility] PROPOFOL 5 Y Y 10 MG HOSPITAL HOSPITAL INJECTION J3010 [facility] FENTANYL 5 Y Y CITRATE [facility] 0.1 MG INSERTION 58358 [facility] UTERINE 5 Y Y TANDEM&/V [facility] AGINAL OVOIDS INJECTION J1100 [facility] 5 Y Y DEXAMETHO [facility] SONE SODIUM PHOSPHATE 1 MG INJECTION J2250 [facility] 5 Y Y MIDAZOLAM [facility] HCL PER 1 MG INJECTION J2175 [facility] 5 Y Y MEPERIDIN [facility] E HCL PER 100 MG REMOTE 59630 [facility] AFTLD 5 Y Y RADIONUCL [facility] MATTIE BRACHYTX 2-[address] [place] [address] [facility] DEVICES 5 Y Y DESIGN & HOSPITAL HOSPITAL CONSTRUCT ION [place] [address] [facility] 5 Y Y [facility] FIELD SETTING COMPLEX ANESTHESI 17978 [place] AZERBAIJANI A VAGINAL 5 MEDICAL DESHAUN SERVICES PROCEDURE W/BIOPSY NOS BRACHYTX 20966 [facility] W/DOSIMET RY CALVIN BRACHYTX C1717 [facility] NONSTRAND 5 Y Y ED [facility] DOSE IRIDIUM-1 92 PER SRC BRACHYTX 83566 [facility] ISODO 5 Y Y PLN [facility] W/DOSIMET RY CALVIN BRACHYTX C1717 [facility] NONSTRAND 5 Y Y ED [facility] DOSE IRIDIUM-1 92 PER SRC ANESTHESI 20962 AYSE CORTEZ A VAGINAL 5 MEDICAL DESHAUN SERVICES PROCEDURE W/BIOPSY NOS THER RAD 99890 [facility] 5 Y Y IDED [facility] [place] [address] [facility] DEVICES 5 Y Y DESIGN & HOSPITAL HOSPITAL CONSTRUCT ION SIMPLE REMOTE 86016 [facility] AFTLD 5 Y Y RADIONUCL [facility] MATTIE BRACHYTX 2-12 CHANNEL INJECTION J1170 [facility] 5 Y Y HYDROMORP [facility] RADHA UP TO 4 MG INJECTION J2175 [facility] 5 Y Y MEPERIDIN [facility] E HCL PER 100 MG INSERTION 13539 [facility] UTERINE 5 Y Y TANDEM&/V HOSPITAL HOSPITAL AGINAL OVOIDS INJECTION J2704 [facility] PROPOFOL 5 Y Y 10 MG [facility] INJECTION J1200 [facility]CL UP TO 50 MG CONTINUIN 23377 [facility] MEDICAL 5 Y Y PHYSICS [facility] CONSLTJ FL WK INJECTION J3010 [facility] FENTANYL 5 Y Y CITRATE [facility] 0.1 MG INSERTION 44469 AYSE FEDCK UTERINE 5 MEDICAL CHRISTIANO TANDEM&/V SERV AGINAL FOUNDATIO OVOIDS N INJECTION J2250 [facility] 5 Y Y MIDAZOLAM [facility] HCL PER 1 MG REMOTE 25061 AYSE BONNERCK AFTLD 5 MEDICAL CHRISTIAN[place] RADIONUCL SERV MATTIE FOUNDATIO BRACHYTX N 2-12 [place] [address] AYSE BONNERNEREIDA DEVICES 5 MEDICAL [place]RI[facility]IAN[facility] DESIGN & SERV CONSTRUCT FOUNDATIO ION N SIMPLE THER RAD 22805 [place] HACK SIMULAJ-A 5 MEDICAL [place]RISTIAN[facility] IDED SERV FIELD FOUNDATIO SETTING N COMPLEX ANESTHESI 51800 [place] JUSTIN A VAGINAL 5 MEDICAL CRY SERVICES PROCEDURE W/BIOPSY NOS BRACHYTX 48055 AYSE BONNERNEREIDA ISODOSE 5 MEDICAL [facility]RISTIANO PLN SERV INTERMED FOUNDATIO W/DOSIMET N RY CALVIN RADIATION 42780 [facility] 5 Y Y [facility] DELIVERY 1 MEV => COMPLEX RADIATION [address] [place] [address] Y Y [facility] DELIVERY 1 MEV => COMPLEX RADIATION 56065 [facility] 5 Y [facility] DELIVERY 1 MEV => COMPLEX INFUSION J7040 [facility] NORMAL 5 Y Y [facility] SOLUTION STERILE INJECTION J3475 [facility] 5 Y Y MAGNESIUM [facility] SULPHATE PER 500 [place] [address] [facility] INFUSION 5 Y Y THER [facility] PROPH ADDL SEQUENTIA L TO 1 HR COMPREHEN 85938 [facility] SIVE 5 Y Y METABOLIC [facility] PANEL COLLECTIO 10040 [facility] N VENOUS 5 Y Y BLOOD [facility] VENIPUNCT URE INJECTION J3480 [facility] 5 Y Y POTASSIUM [facility] CHLORIDE PER 2 MEQ ONDANSETR Q0162 [facility] ON 1 MG 5 Y Y ORL NOT [facility] EXCEED 48 HR DOSE REG BLOOD 30215 [facility] COUNT 5 Y Y COMPLETE [facility] AUTO&AUTO DIFRNTL WBC INFUSION J7030 [facility] NORMAL 5 Y Y SALINE [facility] SOLUTION 1000 CC DEXAMETHA J8540 [facility] SONE ORAL 5 Y Y 0.25 MG [facility] APREPITAN J8501 [facility] T ORAL 5 5 Y Y MG HOSPITAL HOSPITAL INJECTION J9060 [facility] 5 Y Y CISPLATIN [facility] POWDER OR SOLUTION 10 MG CHEMOTX 86972 [facility] ADMN IV 5 Y Y NFS TQ UP [facility] 1 HR SBST/[place] [address] [facility] 5 Y Y THERAPY [facility] PROPHYLAX IS/DX EA HOUR RADIATION 45972 [facility] 5 Y Y [facility] HOSPITAL DELIVERY 1 MEV => COMPLEX RADIATION 94406 [place] [facility] 5 MEDICAL [facility]RI[facility] TREATMENT SERV FOUNDATIO MANAGEMEN N T 5 TREATMENT S RADIATION 93745 [facility] 5 Y Y TREATMENT [facility] DELIVERY 1 MEV => COMPLEX COLLECTIO 72629 [facility] N VENOUS 5 Y Y BLOOD [facility] VENIPUNCT URE BLOOD 39582 [facility] COUNT 5 Y Y COMPLETE HOSPITAL HOSPITAL AUTOMATED URNLS DIP 84733 [facility] 5 Y Y STICK/TAB HOSPITAL HOSPITAL LET REAGENT AUTO MICROSCOP Y ECG 69312 AY[facility] RIVAS LINDSAY ROUTINE 5 MEDICAL ECG SERV W/LEAST FOUNDATIO 12 LDS N I&R ONLY ECG 79118 [facility] ROUTINE 5 Y Y ECG [facility] W/LEAST 12 LDS TRCG ONLY W/O I&R BASIC 13870 [facility] METABOLIC 5 Y Y PANEL [facility] CALCIUM TOTAL CONTINUIN 78546 [facility] 5 Y Y PHYSICS [facility] CONSLTJ FL WK CULTURE 39214 [facility] BACTERIAL 5 Y Y [facility] QUANTTATI VE COLONY COUNT URINE THERAPEUT 56223 [facility] IC 5 Y Y RADIOLOGY [facility] PORT IMAGES(S) RADIATION 23054 [facility]OSPITAL DELIVERY 1 MEV => COMPLEX RADIATION 17480 [facility] DELIVERY 1 MEV => COMPLEX INFUSION J7040 [facility] NORMAL [facility] Y Y [facility] SOLUTION STERILE RADIATION 28394 [facility] 5 Y Y TREATMENT [facility] DELIVERY 1 MEV => [place] [address] [facility] INFUSION 5 Y Y THER [facility] PROPH ADDL SEQUENTIA L TO 1 HR COMPREHEN 40237 [facility] [facility] 5 Y Y [facility] PANEL INJE[facility] J3480 [facility] CHLORIDE PER 2 MEQ COLLECTIO 51942 [facility] N VENOUS 5 Y Y BLOOD [facility] VENIPUNCT URE INJECTION J3475 [facility] 5 Y Y MAGNESIUM [facility] SULPHATE PER 500 MG INJECTION J1453 [facility] 5 Y Y FOSAPREPI [facility] TANT 1 [place] NFS [address]60 [facility] THERAPY 5 Y Y PROPHYLAX [facility] IS/DX CONCURREN T NFS ONDANSETR Q0162 [facility] ON 1 MG 5 Y Y ORL NOT [facility] EXCEED 48 HR DOSE REG BLOOD 83974 [facility] COUNT 5 Y Y COMPLETE [facility] AUTO&[place] [address] [facility] INFUSION 5 Y Y THERAPY [facility] PROPHYLAX IS/DX EA HOUR CHEMOTX 25860 [facility] ADMN [place] 5 Y Y NFS TQ UP [facility] 1 HR SBST/DRUG INJECTION J9060 [facility] 5 Y Y CISPLATIN [facility] POWDER OR SOLUTION 10 MG INFUSION J7050 [facility] NORMAL 5 Y Y SALINE [facility] SOLUTION 250 CC DEXAMETHA J8540 [facility] SON ORAL 5 Y Y 0.25 MG [facility] INFUSION J7030 [facility] 5 Y Y SALINE [facility] SOLUTION 1000 CC GROUND A0425 [facility] MILEAGE 5 [place] PER URBAN URBAN STATUTE COGOVT COGOVT MILE AMB A0427 [facility] SERVICE 5 [place] ALS [facility] EMERGENCY COGOVT COGOVT TRANSPORT LEVEL 1 RADIATION 34894 [facility] 5 Y Y TREATMENT [facility] DELIVERY 1 MEV => COMPLEX RADIATION 00420 [facility] 5 Y Y TREATMENT [facility] DELIVERY 1 MEV => COMPLEX RADIATION 54373 [place] [address] [facility] TREATMENT SERV FOUNDATIO MANAGEMEN N T 5 TREATMENT S GLUCOSE 17464 [facility] QUANTITAT 5 Y Y VINCENT BLOOD [facility] XCPT REAGENT STRIP THERAPEUT 99778 [facility] 5 Y Y RADIOLOGY [facility] PORT IMAGES(S) CONTINUIN 02128 [facility] 5 Y Y PHYSICS [facility] CONSLTJ FL WK RADIATION 88389 [facility] 5 Y Y TREATMENT [facility] DELIVERY 1 MEV => COMPLEX RADIATION 75998 [facility] 5 Y Y TREATMENT [facility] DELIVERY 1 MEV => COMPLEX INFUSION J7040 [facility] NORMAL 5 Y Y SALINE [facility] SOLUTION STERILE COMPREHEN 23903 [facility] SIVE 5 Y [facility] [address] [facility] INFUSION 5 Y Y THER [facility] PROPH ADDL SEQUENTIA L TO 1 HR INJECTION J3475 [facility] 5 Y Y MAGNESIUM [facility] SULPHATE PER 500 MG INJECTION J3480 [facility] 5 Y Y POTASSIUM [facility] CHLORIDE PER 2 MEQ COLLECTIO 82053 [facility] N VENOUS 5 Y Y BLOOD [facility] VENIPUNCT URE ONDANSETR Q0162 [facility] ON 1 MG 5 Y Y [facility]L NOT [facility]PITAL EXCEED 48 HR DOSE REG BLOOD 78616 [facility] COUNT 5 Y Y COMPLETE [facility] AUTO&[place] [address] [facility] 5 Y Y THERAPY [facility] PROPHYLAX IS/DX EA HOUR CHEMOTX 79858 [facility] [place] [place] 5 Y Y NFS TQ UP [facility] 1 HR SBST/DRUG APREPITAN J8501 [facility] T ORAL 5 5 Y Y [facility]PITAL INFUSION J7030 [facility] NORMAL 5 Y Y SALINE [facility] SOLUTION 1000 CC DEXAMETHA J8540 [facility] SONE ORAL 5 Y Y 0.25 MG [facility] INJECTION J9060 [facility] 5 Y Y CISPLATIN [facility] POWDER OR SOLUTION 10 MG RADJ DLVR 02701 [facility] 3/> 4 Y Y [facility] [place] CUSTOM BLKING 08-16MEV RADJ DLVR 14111 [facility] 3/> 4 Y Y [facility] [place] [facility]UST[facility] BLKING 08-16MEV CONTINUIN 76307 [facility] Y Y PHYSICS [facility] CONSLTJ FL WK RADJ DLVR 67376 [facility] 3/> 4 Y Y [facility] [place] CUSTOM BLKING 08-16MEV THERAPEUT 86448 [facility] 4 Y Y RADIOLOGY [facility] PORT IMAGES(S) RADIATION 19147 [facility] 4 [facility] TREATMENT SERV FOUNDATIO MANAGEMEN N [place] [address] [place] [address] [facility] HEAD/BRAI 4 Y Y N W/O & [facility] W/CONTRAS T MATERIAL LOCM Q9967 [facility] 300-399 4 Y Y MG/ML [facility] IODINE CONCENTRA TION PER ML RADJ DLVR 03712 [facility] 3/> 4 Y Y [facility] [place] CUSTOM BLKING 08-16MEV RADJ DLVR 53007 [facility] 3/> 4 Y Y [facility] [place] CUSTOM BLKING 08-16MEV RADJ DLVR 03007 [facility] 3/> 4 Y Y [facility] [place] CUST[facility] BLKING 08-16MEV RADJ DLVR 30635 [facility] 3/> 4 Y Y [facility] [place] CUSTOM BLKING 08-16MEV IV [address] [facility] INFUSION 4 Y Y THERAPY [facility] PROPHYLAX IS/DX EA HOUR CHEMOTX 91673 [facility] [place] [place] 4 Y Y NFS TQ UP [facility] 1 HR SBST/DRUG INJECTION J9060 [facility] 4 Y Y CISPLATIN [facility] POWDER OR SOLUTION 10 MG DEXAMETHA J8540 [facility] SONE ORAL 4 Y Y 0.25 MG [facility] APREPITAN J8501 [facility] T ORAL 5 4 Y Y MG [facility] INFUSION J7030 [facility] NORMAL 4 Y Y SALINE [facility] SOLUTION 1000 CC ONDANSETR Q0162 [facility] ON 1 MG 4 Y Y [facility]L NOT [facility]PITAL EXCEED 48 HR DOSE REG BLOOD 48685 [facility] COUNT 4 Y Y COMPLETE [facility] AUTO&AUTO DIFRNTL WBC INJECTION J3475 [facility] 4 Y Y MAGNESIUM [facility] SULPHATE PER 500 MG INFUSION J7040 [facility] NORMAL 4 Y Y SALINE [facility] [place] [address] [facility] INFUSION 4 Y Y [facility]PITAL PROPH ADDL SEQUENTIA L TO 1 HR COMPREHEN 20083 [facility] SIVE 4 Y Y [facility] PANEL INJECTION J3480 [facility] 4 Y [facility] CHLORIDE PER 2 MEQ COLLECTIO 49268 [facility] VENOUS 4 Y Y BLOOD [facility] VENIPUNCT URE RADIATION 64008 [facility] 4 MEDICAL JOSÉ TREATMENT SERV FOUNDATIO MANAGEMEN N T 5 TREATMENT S THERAPEUT 34679 [facility] 4 Y Y RADIOLOGY [facility] PORT IMAGES(S) RADJ DLVR 58034 [facility] 3/> 4 Y Y [facility] [place] [facility] BLKING 11-MEV CONTINUIN 68865 [facility] 4 Y Y PHYSICS [facility] CONSLTJ FL WK RADJ DLVR 86805 [facility] 3/> 4 Y Y [facility] [place] CUSTOM BLKING 11MEV RADJ DLVR 13283 [facility] 3/> 4 Y Y [facility] [place] CUSTOM BLKING -19MEV RADJ DLVR 13299 [facility] 3/> 4 Y Y [facility] [place] [address] [facility] 4 Y Y THERAPY [facility] PROPHYLAX IS/DX EA HOUR CHEMOTX 25854 [facility] [place] [facility] Y Y NFS [facility] H[facility]PITAL 1 HR SBST/DRUG INFUSION J7030 [facility] NORMAL 4 Y Y SALINE [facility] SOLUTION 1000 CC APREPITAN J8501 [facility] T ORAL 5 4 Y Y MG HOSPITAL HOSPITAL DEXAMETHA J8540 [facility] SONE ORAL 4 Y Y 0.25 [facility]PITAL INJECTION J9060 [facility] 4 Y Y CISPLATIN [facility] POWDER OR SOLUTION 10 MG INFUSION J7040 [facility] NORMAL 4 Y Y SALINE [facility] SOLUTION STERILE INJECTION J3475 [facility] 4 Y Y [facility] SULPHATE PER 500 MG COMPREHEN 18495 [facility] SIVE 4 Y Y [facility] [address] [facility] INFUSION 4 Y Y THER [facility] PROPH ADDL SEQUENTIA L TO 1 HR INJECTION J3480 [facility] 4 Y Y POTASSIUM [facility] CHLORIDE PER 2 MEQ COLLECTIO 98187 [facility] N VENOUS 4 Y Y BLOOD [facility] VENIPUNCT URE BLOOD 65992 [facility] COUNT 4 Y Y COMPLETE [facility] AUTO&AUTO DIFRNTL WBC ONDANSETR Q0162 [facility] ON 1 MG 4 Y Y ORL NOT HOSPITAL HOSPITAL EXCEED 48 HR DOSE [place] 84298 [facility] 4 Y Y [facility] FIELD SETTING SIMPLE RADIATION 17459 AYSE WANG 4 [facility] TREATMENT SERV FOUNDATIO MANAGEMEN N T 5 TREATMENT S RADJ DLVR 70513 [facility] 3/> 4 Y Y AREAS [facility] CUSTOM BLKING 08-16MEV [place] [address] [facility] DEVICES 4 Y Y DESIGN & [facility] CONSTRUCT ION COMPLEX 3-D 80311 [facility] RADIOTHER 4 Y Y [facility] DOSE-VOLU ME HISTOGRAM S BASIC 61312 [facility] RADIATION 4 Y Y [facility] [place] [address] [facility] GUIDANCE 4 Y Y RADIATION [facility] THERAPY FLDS PL[place] 56770 [facility] 4 Y Y [facility] FIELD SETTING COMPLEX THERAPEUT 74745 AY[facility] WANG IC 4 [facility] RADIOLOGY SERV TX FOUNDATIO PLANNING N COMPLEX CT THORAX 11389 [facility] 4 Y Y W/[facility] [place] [address] [facility] ABDOMEN & 4 Y Y PELVIS [facility] W/[facility] T MATERIAL FLUORODEO A9552 [facility] XYGLUCOSE 4 Y Y F-18 FDG [facility] DX UP TO 45 MCI LOCM Q9967 [place] 35591-399 4 Y Y MG/ML [facility] IODINE CONCENTRA TION PER ML PET 15295 AYSE MARTIN PAR IMAGING [address] SERV ATTENUATI FOUNDATIO [place] [address] [facility] SURG 4 Y OF PATHOLOGY [place] [facility] GROSS&JAMES ROSCOPIC EXAM PATH 50432 [facility] CONSLTJ 4 Y OF SURG 1ST [place] BLK HOSPI FROZEN SCTJ 1 SPEC IMHISTOCH 56538 [facility] EM/CYTCHM 4 Y OF 1ST [place] ANTIBODY HOSPI STAIN PROCEDURE ANES 19010 [facility] HYSTEROSC 4 LTH MAR OPY&/HYST ANESTHESI EROSALPIN A PSC GOGRAPHY W/BX HYSTEROSC 03182 AY[facility] STOKES OPY BX 4 MEDICAL MAR ENDOMETRI SERV UM&/POLYP FOUNDATIO C W/WO N D&C BLOOD 40839 [facility] COUNT 4 Y Y HEMATOCRI [facility] T CYTP 10918 [facility] C[facility]/ 4 Y OF MILAGROS VAGINAL [place] REQ HOSPI INTERP PHYSICIAN CYTP C/V 99633 [facility] AUTO THIN 4 Y Y LYR [facility] PREPJ SCR MNL RESCR PHYS BLOOD 07081 [facility] COUNT 4 Y Y HEMOGLOBI [facility] N COLLECTIO 32268 [facility] N VENOUS 4 Y Y BLOOD [facility] VENIPUNCT URE URINE 85274 AYSE STOKES 4 MEDICAL MAR TEST SERV VISUAL [place] [address] [facility] [place] [facility] TRANSVAGI 4 RADIOLOGY NAL GROUND A0425 [facility] EMS MILE AMBULANCE A0429 [facility] SERVICE 4 [facility] [place] [address] [facility] [place] ABDOMEN & 4 RADIOLOGY PELVIS W/CONTRAS T MATERIAL BLOOD 50941 SWINE[facility] SWINEY OCCULT 4 PAT PAT PEROXIDAS E ACTV QUAL FECES 1-3 [facility] 53684 [facility] DISCHARGE 3 Y OF YASH DAY [place] MANAGEMEN PEDIA T 30 MIN/< SBSQ HOSP 18658 [facility] CARE 3 Y OF YASH F/E/M NML [place] NB FL D PEDIA HX&XM [facility] 34309 [facility] NB INFT 3 Y OF YASH INITIATIO [place] N DX&TX PEDIA Encounters Encounter Start End Date Code Location Performer Type Date [facility] SHARLA - 7 7 [facility] OUTPATIEN [facility] SHARLA [facility] 7 7 [facility] OUTPATIEN [facility] OFFICE 92805 [facility] MARYCR[facility] 7 7 PHYSICIAN T VISIT S GROUP 15 MINUTES EMERGENCY 73629 [facility] HAMMONDS DEPT 7 7 PHYSICIAN VISIT S, [facility] HIGH [facility]VERITY& THREAT [facility] 7 7 [facility] EMERGENCY 60319 SH[facility]LA 7 7 [facility] DEPARTMEN [facility] T VISIT HIGH/URGE NT SEVERITY HOSPITAL SHARLA - 7 7 [facility] OUTPATIEN [facility] SHARLA - 7 7 [facility] SHARLA - 7 7 [facility] SHARLA - 7 7 [facility] OFFICE 54284 [facility] 7 7 PHYSICIAN T VISIT S GROUP 25 MINUTES EMERGENCY 96682 [facility] VILLASENOR 7 7 PHYSICIAN DEPARTMEN S, [facility] T VISIT HIGH/URGE NT SEVERITY EMERGENCY 66477 [facility] BABCOCK DEPT 7 7 PHYSICIAN VISIT S, PLLC HIGH SEVERITY& THREAT FUNCJ EMERGENCY 17174 SH[facility]LA 7 7 MEM [facility] DEPARTMEN INC T VISIT MODERATE SEVERITY HOSPITAL SHARLA - 7 7 [facility] OUTPATIEN INC T EMERGENCY 74337 [facility] GRAMAJO DEPT 7 7 PHYSICIAN VISIT S, [facility] HIGH SEVERITY& THREAT FUNJ EMERGENCY 51041 [facility] BABCOCK 7 7 PHYSICIAN DEPARTMEN S, [facility] T VISIT HIGH/URGE NT SEVERITY HOSPITAL SH[facility]LA - 7 7 [facility] OUTPATIEN INC T OFFICE 79785 [facility] WHITEPATIEN 7 7 PHYSICIAN T VISIT S GROUP 25 MINUTES OFFICE 60438 [facility] [place] WHITEPATIEN 7 7 PHYSICIAN T VISIT S GROUP 25 MINUTES EMERGENCY 96135 [facility] BABCOCK 7 7 PHYSICIAN DEPARTMEN S, [facility] T VISIT HIGH/URGE NT SEVERITY HOSPITAL SH[facility] - 7 7 [facility] OUTPATIEN INC T EMERGENCY 95650 [facility] 7 7 [facility] DEPARTMEN INC T VISIT LOW/MODER SEVERITY EMERGENCY 81578 [facility] SARGENT 7 7 PHYSICIAN U [facility], [facility] T VISIT HIGH/URGE NT SEVERITY HOSPITAL SHARLA - 7 7 [facility] OUTPATIEN INC T EMERGENCY 79297 [facility] 7 7 [facility] DEPARTMEN INC T VISIT MODERATE SEVERITY HOSPITAL SH[facility]LA - 7 7 [facility] OUTPATIEN INC T OFFICE 26441 [facility] OUTPATIEN 7 7 PHYSICIAN T VISIT S GROUP 25 MINUTES OFFICE 97824 [facility] [place] OUTPATIEN 7 7 PHYSICIAN T VISIT S GROUP 15 MINUTES HOSPITAL SHARLA - 7 7 [facility] OUTPATIEN INC T HOSPITAL SHARLA - 7 7 [facility] OUTPATIEN INC T OFFICE 04513 [facility] [place] OUTPATIEN 7 7 PHYSICIAN T VISIT S GROUP 25 MINUTES OFFICE 41527 [facility] OUTPATIEN 7 7 PHYSICIAN T NEW 30 S GROUP MINUTES HOSPITAL SHARLA - 7 7 [facility] OUTPATIEN [facility] T EMERGENCY 50979 COLIN BABCOCK 7 7 PHYSICIAN DEPARTMEN S, [facility] T VISIT MODERATE SEVERITY HOSPITAL SHARLA - 7 7 [facility] OUTPATIEN [facility] HOSPITAL SHARLA - 7 7 [facility] OUTPATIEN [facility] OFFICE 29017 [facility] MARYCRUZ OUTPATIEN 7 7 PHYSICIAN T VISIT S GROUP 10 MINUTES OFFICE 05194 [facility] 6 6 [facility] 15 P MINUTES HOSPITAL SHARLA - 6 6 [facility] OFFICE 24522 [facility] 6 6 [facility] 10 P MINUTES EMERGENCY 74173 COLIN HAMMONDS 6 6 PHYSICIAN DEBBY GOSS S, [facility] T VISIT HIGH/URGE NT SEVERITY EMERGENCY 88008 [facility] BABCOCK DEPT 6 6 PHYSICIAN JAMES VISIT S, [facility] HIGH SEVERITY& THREAT FUN EMERGENCY 33692 [facility] 6 6 MEM [facility] DEPARTMEN INC T VISIT MODERATE SEVERITY HOSPITAL SHARLA - 6 6 [facility] OUTPATIEN [facility] EMERGENCY 03335 COL[facility] SIBLEY 6 6 PHYSICIAN DEPARTMEN S, [facility] T VISIT HIGH/URGE NT SEVERITY EMERGENCY 92590 [facility] BABCOCK DEPT 6 6 PHYSICIAN JAMES VISIT S, PLLC HIGH SEVERITY& THREAT [facility] - 5 5 [facility] - 5 5 [facility]IEN E T [facility] 70121 [facility] MAC DEPT 5 5 [facility]ER VISIT HIGH SEVERITY& THREAT FUN OFFICE 53715 [facility] MICHELLE OUTPATIEN 5 5 [facility] T VISIT 5 MINUTES HOSPITAL SHARLA - 5 5 [facility] OUTPATIEN INC [facility]OSPITAL SHARLA - 5 5 [facility] OUTPATIEN INC T OFFICE 70042 SH[facility] MICHELLE OUTPATIEN 5 5 [facility] T [facility]ISIT 5 HOSPITAL MINUTES P HOSPITAL SHARLA - 5 5 [facility] OUTPATIEN INC T OFFICE 37503 SH[facility] MICHELLE OUTPATIEN 5 5 [facility] VISIT 5 HOSPITAL MINUTES P OFFICE 85264 [facility] MICHELLE OUTPATIEN 5 5 [facility] T VISIT 5 HOSPITAL MINUTES P HOSPITAL SHARLA - 5 5 [facility] OUTPATIEN INC T OFFICE 00288 [facility] MICHELLE OUTPATIEN 5 5 [facility] T VISIT 5 HOSPITAL MINUTES P HOSPITAL SHARLA - 5 5 [facility] OUTPATIEN INC [facility]OSPITAL SHARLA - 5 5 [facility] OUTPAT[facility] INC T OFFICE 54483 [facility] OUTPATIEN 5 5 PHYSICIAN CAM T NEW 30 S GROUP MINUTES HOSPITAL SHARLA - 5 5 [facility] OUTPATIEN INC EMERGENCY 96596 SH[facility] BUENROSTRO 5 5 [facility] T VISIT P HIGH/URGE NT SEVERITY HOSPITAL SH[facility] - 5 5 [facility] OUTPATIEN INC [facility] UN[facility]ERSIT - 5 5 [facility] - 5 5 [facility] - 5 5 [facility] - 5 5 [facility] - 5 5 Y [facility] - 5 5 Y [facility] - 5 5 Y [facility] T OFFICE 41670 UNIVERSIT [facility] 5 [address] UNIVERSIT - 5 5 Y [facility] - 5 5 Y [facility] - 5 5 Y [facility] - 5 5 Y [facility] - 5 5 Y [facility] - 5 5 Y [facility] - 5 5 Y [facility] - 5 5 Y [facility] - 5 5 Y [facility] T OFFICE 28830 UNIVERSIT [facility] 5 [address] UNIVERSIT - 5 5 Y [facility] - 5 5 Y [facility] - 5 5 [facility] - 5 5 Y [facility] EMERGENCY 71768 UNIVERSIT 5 5 Y [facility] UNIVERSIT [facility] 5 5 Y [facility] UN[facility] - 5 5 Y [facility] - 5 5 Y [facility] - 4 4 Y [facility] UN[facility] - 4 4 Y [facility] UN[facility] - 4 4 Y [facility] - 4 4 Y [facility] - 4 4 Y [facility] - 4 4 Y [facility] - 4 4 Y [facility] - 4 4 Y [facility] - 4 4 Y [facility] - 4 4 Y [facility] - 4 4 Y [facility] - 4 4 Y [facility] 4 4 Y [facility] UN[facility] - 4 4 Y [facility] OFFICE [id number] [facility] 4 4 Y [facility] 15 MINUT[facility] OFFICE [id number] [facility] 4 4 Y [facility] 40 [facility] UNIVERSIT - 4 4 Y [facility] T OFFICE [id number] AYSE WANG CONSULTAT 4 4 MEDICAL [facility]RI[facility]IANO ION SERV NEW/ESTAB FOUNDATIO PATIENT N 80 MIN HOSPITAL UNIVERSIT - 4 4 Y [facility] T OFFICE [id number] [facility] 4 4 [place] [facility] 10 MINUTES DE[facility]GULF [facility] DEPARTGULF [facility] T T [facility] UNIVERSIT [facility] 4 4 Y [facility] T OFFICE [id number] AYSE STOKES OUTPATIEN 4 4 MEDICAL MAR T NEW 30 SERV MINUTES FOUNDATIO N EMERGENCY 17226 AVILA MUÑOZ DEPT 4 4 VISIT HIGH SEVERITY& THREAT FUNJ EMERGENCY 06867 VORKELLENOR VORKPOR DEPT 4 4 [facility] VISIT HIGH SEVERITY& THREAT FUN EMERGENCY 54078 SWINEY SWINEY 4 4 PAT PAT [facility]UL[facility] T VISIT HIGH/URGE NT SEVERITY
--- OUTSIDE RECORDS SUMMARY | 2017-07-08 19:55 | External Medical Summary Rpt ---
Author Author , CESAR Organization CESAR Address Unknown Phone [email or web address] Care Team Providers Care Non Clinical Advisor Name Role Phone ABSNER MILAGROS, ABSMATEUS Unavailable Unavailable MILAGROS [employer] Unavailable Unavailable INC, [employer] Unavailable Unavailable INC, [employer] ALLRAN JR, ALLRAN JR Unavailable Unavailable AYOOB AND, AYOOB AND Unavailable Unavailable BEINEKE, BEINEKE Unavailable Unavailable STACY, STACY Unavailable Unavailable STACY ALL, STACY ALL Unavailable Unavailable [facility] Unavailable Unavailable DEPARTMENT, [facility] DE[facility] Unavailable Unavailable DEPARTMENT, [facility] MÁRQUEZ JAM, MÁRQUEZ JAM Unavailable Unavailable CORTEZ DESHAUN, Unavailable Unavailable CORTEZ DESHAUN [employer], [employer]UB[employer] Unavailable Unavailable [employer], [employer]UB[employer] Unavailable Unavailable [employer] [facility], Unavailable Unavailable [facility] CASTILLO YASH, CASTILLO Unavailable Unavailable YASH [facility] Unavailable Unavailable [facility] Unavailable Unavailable [facility], [facility] МАРИЯ GAR, МАРИЯ Unavailable Unavailable GAR NICO ALEJANDRA, Unavailable Unavailable NICO ALEJANDRA MICHELLE, MICHELLE Unavailable Unavailable MICHELLE PHI, Unavailable Unavailable MICHELLE PHI MICHELLE PHI, Unavailable Unavailable MICHELLE PHI MERRITT SHIRA, MERRITT SHIRA Unavailable Unavailable CAYMAN ISLANDER DESHAUN, CAYMAN ISLANDER Unavailable Unavailable DESHAUN FAUGHN LAO, FAUGHN Unavailable Unavailable LAO FEDDOCK CHRISTIANO, FEDDOCK Unavailable Unavailable CHRISTIANO FEEBACK, FEEBACK Unavailable Unavailable FRYMAN, FRYMAN Unavailable Unavailable YOKO, YOKO Unavailable Unavailable YOKO JAMES, YOKO Unavailable Unavailable JAMES [facility] Unavailable Unavailable INC, [facility] Un[facility] Un[facility], [facility], Unavailable Unavailable [facility] STOKES MAR, STOKES Unavailable Unavailable MAR GRAMAJO, GRAMAJO Unavailable Unavailable GRAMAJO WANDA, GRAMAJO WANDA Unavailable Unavailable [facility] Un[facility], [facility] Un[facility], [facility] MERRITT JR, MERRITT JR Unavailable Unavailable MERRITT JR DWI, MERRITT Unavailable Unavailable JR DWI MAREK FAYETTE URBAN Unavailable Unavailable COGOVT, MAREK FAYETTE URBAN COGOVT MICHAELS MAR, MICHAELS Unavailable Unavailable MAR JERAMIE JOSÉ, JERAMIE Unavailable Unavailable JOSÉ [facility] Unavailable Unavailable EMS, [facility] Unavailable Unavailable EMS, [facility] [place] Unavailable Unavailable [facility], Unavailable Unavailable PLLC, [...] PAT SWINEY PAT, SWINEY Unavailable Unavailable [facility] Unavailable Unavailable HOSPITALS, [facility], Unavailable Unavailable [facility] VORKPOR NICOLÁS, VORKPOR Unavailable Unavailable NICOLÁS WEST KAYLEE, WEST KAYLEE Unavailable Unavailable Purpose Continuity of Care Document - 02-14-2003 through 2016 Problems Code Diagnosis DOS Provider Status K811 CHRONIC 04-22-2017 [facility] CHOLECYSTIT PHYSICIANS IS GROUP K819 CHOLECYSTIT 04-22-2017 COMMUNITY IS ANESTH OF UNSPECIFIED THE BLUE K828 OTHER 04-22-2017 [facility] SPECIFIED PHYSICIANS DISEASES OF GROUP GALLBLADDER [id number] ENCOUNTER 04-20-2017 [facility] PREPROCEDUR INC AL LABORATORY [...] PAIN [facility] INC E663 OVERWEIGHT 02-13-2017 [facility] G629 POLYNEUROPA 02-13-2017 [facility] THY PHYSICIANS UNSPECIFIED GROUP M9983 OTHER 02-13-2017 [facility] BIOMECHANIC PHYSICIANS AL LESIONS GROUP OF LUMBAR REGION M546 PAIN IN 02-10-2017 [facility], SPINE PLLC R51 HEADACHE 02-05-2017 [facility]C C539 MALIGNANT 01-22-2017 [facility] NEOPLASM OF MEDICAL CERVIX IMAGING ASS UTERI UNSPECIFIED K219 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-22-2017 [facility] P WITHOUT ESOPHAGITIS M542 CERVICALGIA 01-22-2017 [facility] N938 OTHER SPEC 01-22-2017 [facility] ABNORMAL PHYSICIANS, UTERINE & PLLC VAGINAL BLEEDING N939 ABNORMAL 01-22-2017 [facility] UTERINE & MEDICAL VAGINAL IMAGING ASS BLEEDING UNSPECIFIED R55 SYNCOPE AND 01-22-2017 [facility] COLL[facility]SE [facility] [id number] UNSPECIFIED 01-22-2017 [facility] INJURY OF MEDICAL HEAD IMAGING ASS INITIAL ENCOUNTER S616FTN UNSPECIFIED 01-22-2017 [facility] INJURY OF MEDICAL NECK IMAGING ASS INITIAL ENCOUNTER Z720 TOBACCO USE 01-22-2017 [facility] P Z8541 PERSONAL 01-22-2017 [facility] HISTORY PHYSICIANS, MALIGNANT PLL NEOPLASM CERVIX UTERI C27214 PAIN IN 01-16-2017 [facility]OT [facility] [id number] CONTUSION 01-16-2017 [facility] OF RIGHT PHYSICIANS, FOOT PLLC INITIAL ENCOUNTER [id number] UNSPECIFIED 01-16-2017 [employer] RIGHT FOOT S INC INITIAL ENCOUNTER G4762 SLEEP 01-14-2017 [facility] RELATED LEG PHYSICIANS CRAMPS GROUP M5127 OTH 01-14-2017 [facility] INTERVERTEB MEDICAL RAL DISC IMAGING ASS DISPLACEMEN T LS REGION N342 OTHER 01-08-2017 [facility] URETHRITIS PHYSICIANS, [facility] R1030 LOWER 01-08-2017 [facility] ABDOMINAL MEDICAL PAIN IMAGING ASS UNSPECIFIED G37141 MIGRAINE 01-04-2017 [facility] W/O AURA PHYSICIANS, NOT INTRACT PLL W/O STAT MIGRAIN D128 BENIGN 12-30-2016 [facility] NEOPLASM OF PHYSICIANS RECTUM GROUP K6289 OTHER 12-30-2016 COMMUNITY SPECIFIED ANESTH OF DISEASES OF THE BLUE ANUS AND RECTUM K648 OTHER 12-30-2016 [facility] HEMORRHOIDS PHYSICIANS GROUP K649 UNSPECIFIED 12-30-2016 COMMUNITY ANESTH OF HEMORRHOIDS THE BLUE K629 DISEASE OF 12-18-2016 [facility] ANUS AND PHYSICIANS RECTUM GROUP UNSPECIFIED E039 HYPOTHYROID 11-05-2016 [facility] ISM PHYSICIANS UNSPECIFIED GROUP Z0000 ENCOUNTER 10-15-2016 [facility] GEN ADULT PHYSICIANS MED EXAM GROUP W/O ABNORMAL FIND [id number] STRAIN 10-13-2016 [facility] MUSCLE PHYSICIANS, FASCIA & PLLC TENDON LOW BACK INITIAL R48136O OTH [facility] 10-01-2016 [facility] COMP OTH ANESTH OF CARD VASC THE BLUE DEVC IMPL INIT ENC Z452 ENCOUNTER 10-01-2016 [facility] ADJUSTMENT& PHYSICIANS MGMT GROUP VASCULAR ACCESS DEVICE Z789 OTHER 09-29-2016 [facility] SPECIFIED PHYSICIANS HEALTH GROUP STATUS C569 MALIGNANT 09-05-2016 [place] NE[facility]LASM OF MEDICAL IMAGING ASS UNSPECIFIED OVARY C7989 SECONDARY 09-05-2016 [facility] MALIGNANT [facility] NEOPLASM INC OT SPECIFIED SITES W66645 MIGRAINE 08-20-2016 [facility] W/AURA NOT PHYSICIANS, INTRACT PLLC W/STATUS MIGRAINOSUS R05 COUGH 03-18-2016 [facility] P R0602 SHORTNESS 03-18-2016 [facility] Z21636 MIGRAINE 02-04-2016 [facility] UNS NOT PHYSICIANS, INTRACT W/O PLLC STATUS MIGRAINOSUS R079 CHEST PAIN 12-01-2015 [place] UNSPECIFIED MEDICAL IMAGING ASS T22481I PAIN D/T 08-30-2015 [facility] IMPL & GRAFTS INITIAL A42430V OTH SPEC 08-30-2015 [facility] IMPL GFT INIT ENC R1012 LEFT UPPER 06-30-2015 [facility] [employer] QUADRANT PAIN R109 UNSPECIFIED 06-30-2015 [facility] ABDOMINAL MEDICAL PAIN IMAGING ASS R197 DIARRHEA 06-30-2015 [facility] [employer] UNSPECIFIED 1809 MALIGNANT 04-25-2015 [facility] NEOPLASM PHI CERVIX UTERI UNSPECIFIED SITE 73162 SOLITARY 04-11-2015 [facility] PULMONARY MEDICAL NODULE IMAGING ASS V1041 PERSONAL 04-11-2015 [place] HISTORY MEDICAL MALIGNANT IMAGING ASS NEOPLASM CERVIX UTERI V711 OBSERVATION 04-11-2015 [facility] FOR [facility]ICAL SUSPECTED IMAGING ASS MALIGNANT NEOPLASM 1749 MALIGNANT 02-28-2015 [facility] P UNSPECIFIED SITE 4660 ACUTE 01-24-2015 [facility] BRONCHITIS [facility] P 1991 OTHER 01-16-2015 [facility] MALIGNANT PHYSICIANS NEOPLASM OF GROUP UNSPECIFIED SITE V5881 FITTING AND 01-16-2015 [place] ADJUSTMENT MEDICAL OF IMAGING ASS VASCULAR CATHETER 2331 CARCINOMA 01-12-2015 [facility] IN [facility] P UTERI 60198 SHORTNESS 01-06-2015 [facility] 93101 NAUSEA WITH 01-06-2015 [facility] VOMITING [facility] P E9331 ANTINEOPLAS 01-06-2015 [facility] TIC-IMMUNOS [facility] P ADVRSE EFF TX USE V5811 ENCOUNTER 01-02-2015 [facility] ANTINEOPLAS TIC CHEMOTHERAP Y 6268 OTH D/O 12-18-2014 [facility] N&OTH ABN BLEED FE GNT TRACT 5718 OTHER 12-01-2014 [place] [facility] NONALCOHOLI FOUNDATION C LIVER DISEASE 5939 UNSPECIFIED 12-01-2014 [place] [facility] DISORDER SERV OF KIDNEY [facility]OUND[facility] AND URETER 7856 ENLARGEMENT 12-01-2014 [facility] NODES V580 RADIOTHERAP 10-30-2014 [facility] 179 MALIGNANT 10-23-2014 [facility] UTERUS PART UNSPECIFIED 1800 MALIGNANT 10-19-2014 [place] [facility] OF SERV ENDOCERVIX FOUNDATION 1968 SEC&UNSPEC 10-18-2014 [facility] NEOPLASM NODES MULTIPLE SITES 2859 UNSPECIFIED 10-04-2014 [facility] 6238 OTHER 10-04-2014 [facility] NONINFLAMMA TORY DISORDER VAGINA 19921 ABDOMINAL 10-04-2014 [place] [facility] PA[facility], SERV UNSPECIFIED FOUNDATION SITE 38889 ABDOMINAL 10-04-2014 [facility] PAIN OTHER HOSPITAL SPECIFIED SITE V153 PERS HX 10-04-2014 [facility] PRESENTING [facility] 7840 HEADACHE 09-20-2014 [facility] 1820 MALIGNANT 09-08-2014 [facility] UTERI EXCEPT ISTHMUS 6262 EXCESSIVE 09-08-2014 [facility] OR [facility] MENSTRUATIO N 1808 MALIGNANT 09-01-2014 [place] [facility] NEOPLAS[facility] SERV OTHER FOUNDATION SPECIFIED SITES CERVIX 67567 ABD/PELVIC 08-30-2014 [facility] MASS/LUMP OTH SPEC SITE 26897 NONGONOCOCC 08-15-2014 [facility] URETHRITIS DEPARTMENT DUE CHLAMYDTRAC HOMATIS 24032 MORBID 08-09-2014 [facility] ANESTHESIA PSC 6269 UNS D/O 08-07-2014 [facility] N&OTH ABN BLEED FE GNT TRACT V7241 08-07-2014 [place] [facility] OR TEST FOUNDATION NEGATIVE RESULT 4590 UNSPECIFIED 08-03-2014 [facility] 6259 UNSPEC 08-03-2014 [facility] [place] [facility] W/FEMALE GENITAL ORGANS 1123 CANDIDIASIS 02-09-2014 [facility] PAT OF SKIN AND NAILS 19343 ANAL OR 02-09-2014 [facility] PAT RECTAL PAIN V3000 SINGLE 02-16-2003 [facility] W/O Allergies, Adverse Reactions, Alerts Clinical [...] 09 10 60 30 00 HO Ac MI 09 -1 -0 .0 00 ME ti [...] 08 09 60 30 00 HO Ac MI 09 -1 -0 .0 00 ME ti [...] #3 N 93 5- 8 32 5 MI 68 07 08 14 4 00 HO [...] 07 08 60 30 00 HO Ac MI 09 -1 -0 .0 00 ME ti [...] 06 07 60 30 00 HO Ac MI 00 -1 -1 .0 00 ME ti [...] 17 17 30 TA 5 04 PH AZ AR N- MA CA CY FF OF [...] 20 9- 6- 00 06 TO ve MI 05 20 20 08 WN AM 35 [...] 05 06 14 7 00 HO Ac MI 46 -1 -0 .0 00 ME ti [...] 1 40 PH CE AR TA MA AZ CY NO PH #3 EN 93 8 5- 32 5 HY 00 04 05 [address] 60 -2 -2 .0 00 ME ti OC 33 7- 6- 00 02 TO ve OD 89 20 20 01 WN ON 03 17 17 34 -A 2 67 PH CE AR TA MA AZ CY NO PH OF EN CY 5- [...] 04 05 14 7 00 HO Ac MI 57 -1 -1 .0 00 ME ti [...] 2 26 PH CE AR TA MA AZ CY NO PH OF EN CY 5- [...] 2 24 PH CE AR TA MA AZ CY NO PH OF EN CY 5- [...] 2 34 PH CE AR TA MA AZ CY NO PH OF EN CY 5- [...] PS NT UL HI E AN A MI 68 01 02 12 30 00 HO Ac OM 38 -1 -1 0. 00 ME ti ET 20 8- 0- 00 06 TO ve ARROYO 04 20 20 0 07 WN ZI 00 17 17 97 NE 1 55 PH AR 12 MA .5 CY MG OF TA CY BL NT ET HI AN A MI 59 01 02 10 5 00 HO [...] 07 WN ZA 93 17 17 96 MI 2 42 PH IN AR E MA 10 CY MG OF TA CY BL NT ET HI AN A HY 13 01 01 [address] 10 -0 -2 .0 00 IN ti OC 70 4- 7- 00 00 IC ve OD 01 20 20 41 ON 90 17 17 81 PH -A 5 73 AR CE MA TA CY [place] NO PH EN 5- 32 5 OM [...] Procedure DOS Code Location Performer Comment ANES 59612 [facility] FEEBACK INTRAPERI 7 ANESTH TONEAL OF THE UPPER BLUE ABDOMEN W/LAPS NOS LAPAROSCO 26430 [facility] MARYCRUZ BEAN PY SURG 7 PHYSICIAN CHOLECYST S GROUP ECTOMY URINE 00210 [facility] MAGDALENO 7 [facility] TEST INC INC VISUAL COLOR CMPRSN METHS BLOOD 80517 SH[facility]LA MAGDALENO COUNT 7 [facility] COMPLETE INC INC AUTO&[place] [address] SHARLA MAGDALENO AMYLASE 7 [facility] [place] [address] SHARLA MAGDALENO LIPASE 7 [facility] INC INC COLLECTIO 24671 SHARLA MAGDALENO N VENOUS 7 [facility] BLOOD INC INC VENIPUNCT URE COMPREHEN 64840 SHARLA MAGDALENO SIVE 7 [facility] [address] SHARLA MAGDALENO INFUSION 7 [facility] THERAPY/P INC INC ROPHYLAXI S /DX 1ST TO 1 HR THERAPEUT 36725 SH[facility]LA MAGDALENO IC 7 [facility] INJECTION INC INC IV PUSH EACH NEW DRUG URNLS DIP 89000 SHARLA MAGDALENO 7 [facility] STICK/TAB INC INC LET REAGENT AUTO MICROSCOP Y BLOOD 10102 SH[facility]LA MAGDALENO COUNT 7 [facility] COMPLETE INC INC AUTO&[place] [address] SHARLA MAGDALENO LIPASE 7 [facility] [place] [address] SHARLA MAGDALENO ABDOMEN & 7 [facility] PELVIS INC [place] W/[place] [address] SHARLA MAGDALENO AMYLASE 7 [facility] INC INC COMPREHEN 13310 SHARLA MAGDALENO SIVE 7 [facility] METABOLIC INC INC PANEL URINE 47656 SH[facility]LA MAGDALENO 7 [facility] TEST INC INC VISUAL COLOR CMPRSN METHS HEPATOBIL 36899 [place] [facility] SYST 7 MEDICAL IMAG INC IMAGING GB ASS W/PHARMA INTERVENJ TECHNETIU A9537 SH[facility] MAGDALENO M TC-99M 7 [facility] MEBROFENI INC INC N DX [place] [address] [place] [address] SHARLA MAGDALENO ABDOMINAL 7 [facility] REAL INC INC TIME W/[place] [address] SHARLA MAGDALENO THYROID 7 [facility] STIMULATI [place] [address] SHARLA MAGDALENO THYROXINE 7 MEM [facility]OSP TOTAL INC INC COLLECTIO 03191 SHARLA MAGDALENO N VENOUS 7 [facility]OS[facility] BLOOD INC INC VENIPUNCT URE THERAPEUT 03108 SHARLA MAGDALENO IC PX 1/> 7 [facility] AREAS INC INC EACH 15 MIN EXERCISES APPL 96292 SHARLA MAGDALENO MODALITY 7 [facility] H[facility]OS[facility] 1/> AREAS INC INC TRACTION MECHANICA L APPL 11132 SHARLA MAGDALENO MODALITY 7 [facility] 1/> AREAS INC INC ELEC STIMJ UNATTENDE D APPLICATI 78401 SHARLA MAGDALENO ON 7 [facility] MODALITY INC INC 1/> AREAS HOT/COLD PACKS APPL 42117 SHARLA MAGDALENO MODALITY 7 [facility] H[facility]OS[facility] 1/> AREAS INC INC ULTRASOUN D EA 15 MIN APPLICATI 87072 SHARLA MAGDALENO ON 7 [facility]OS[facility] MODALITY INC INC 1/> AREAS HOT/COLD PACKS APPL 77499 SHARLA MAGDALENO MODALITY 7 [facility]OS[facility] 1/> AREAS INC INC TRACTION MECHANICA L APPL 06910 SHARLA MAGDALENO MODALITY 7 [facility] H[facility] 1/> AREAS INC INC ELEC STIMJ UNATTENDE D THERAPEUT 17767 SHARLA SHARLA IC PX 1/> 7 [facility] AREAS INC INC EACH 15 MIN EXERCISES PHYSICAL 54580 SHARLA MAGDALENO THERAPY 7 [facility] EVALUATIO INC INC N LOW COMPLEX 20 MINS FINAL G9638 MICHELLE STACY REPORTS 7 MEDICAL W/O DOC IMAGING 1/[place] [address] [facility] HEAD/BRAI 7 MEDICAL N W/O IMAGING CONTRAST ASS MATERIAL FINAL G9638 [facility] RE[facility] 7 MEDICAL W/O DOC IMAGING 1/MORE ASS DOSE REDUCTION TECH COMPREHEN 58890 SHARLA LINON SIVE 7 [facility] METABOLIC INC INC PANEL FINAL RPT G[address]/MRI 7 MEDICAL CHEST/NCK IMAGING /U/S NO ASS THR NOD<1.0 CM ECG 83135 SHARLA MAGDALENO ROUTINE 7 [facility] ECG INC INC W/LEAST 12 LDS TRCG ONLY W/O I&[place] [address] MICHELLE STACY CERVICAL 7 MEDICAL SPINE W/O IMAGING CONTRAST ASS MATERIAL CREATINE 76413 SHARLA MAGDALENO KINASE MB 7 [facility] [place] [address] MICHELLE STACY HEAD/BRAI 7 MEDICAL [place] [address] [facility] TRANSVAGI 7 MEDICAL MEDICAL NAL IMAGING IMAGING ASS ASS CREATINE 40283 SHARLA MAGDALENO KINASE 7 [facility] [place] [address] SHARLA MAGDALENO TROPONIN 7 [facility] QUANTITAT INC INC VINCENT ECG 68830 [facility] GRAMAJO ROUTINE 7 PHYSICIAN ECG S, PLLC W/LEAST 12 LDS I&R ONLY BLOOD 20661 SHARLA MAGDALENO COUNT 7 [facility] COMPLETE INC INC AUTO&AUTO DIFRNTL WBC CRTCHS E0114 [facility] 7 TECHNOLOG TECHNOLOG OTH THAN IES INC IES INC WOOD PAIR PAD TIP&HNDGR IP RADEX 94174 MICHELLE STACY FOOT 7 MEDICAL COMPLETE IMAGING MINIMUM 3 ASS VIEWS COLLECTIO 71101 [facility] FRYMAN N VENOUS 7 PHYSICIAN BLOOD S GROUP VENIPUNCT URE COMPREHEN 22573 SH[facility]LA MAGDALENO SIVE 7 [facility] [place] [address] SHARLA MAGDALENO MAGNESIUM 7 [facility]OS[facility] INC INC 3D 98327 MICHELLE STACY RENDERING 7 MEDICAL W/INTERP IMAGING & ASS POSTPROCE SS SUPERVISI ON MRI 01890 MICHELLE STACY SPINAL 7 MEDICAL CANAL IMAGING LUMBAR ASS W/O CONTRAST MATERIAL CULTURE 32462 SHARLA MAGDALENO BACTERIAL 7 [facility] INC [place] [address] MICHELLE STACY ABDOMEN & 7 MEDICAL PELVIS IMAGING W/O ASS CONTRAST MATERIAL URNLS DIP 49021 SH[facility]LA MAGDALENO 7 [facility] STICK/TAB INC INC LET REAGENT AUTO MICROSCOP Y FINAL G9638 MICHELLE STACY REPORTS 7 MEDICAL W/O DOC IMAGING 1/MORE ASS DOSE REDUCTION TECH FINAL G9551 MICHELLE STACY REPR ABD 7 MEDICAL IMAG STS IMAGING W/O ASS INCIDNT FND LES NTD: THER 47736 SH[facility]LA MAGDALENO PROPH/DX 7 [facility] NJX IV INC INC PUSH SINGLE/1S T SBST/DRUG THERAPEUT 59747 SHARLA MAGDALENO IC 7 [facility] INJECTION INC INC IV PUSH EACH NEW DRUG THER 65372 SHARLA MAGDALENO PROPH/DX 7 [facility] NJX EA INC INC SEQL IV PUSH SBST/DRUG FAC URINE 70946 SHARLA MAGDALENO 7 [facility] TEST INC INC VISUAL COLOR CMPRSN METHS COLONOSCO 19259 SHARLA MAGDALENO PY FLX DX 7 [facility] W/COLLJ INC INC SPEC WHEN PFRMD ANES 65299 [facility] 7 ANESTH INTESTINE OF THE BLUE ENDOSCOPY DISTAL DUODENUM THERAPEUT 24393 SHARLA MAGDALENO IC PX 1/> 7 [facility] AREAS INC INC EACH 15 MIN EXERCISES APPL 35961 SHARLA MAGDALENO MODALITY 7 [facility] HOS[facility]OS[facility] 1/> AREAS INC INC ELEC STIMJ UNATTENDE D APPLICATI 95240 SHARLA MAGDALENO ON 7 [facility] MODALITY INC INC 1/> AREAS HOT/COLD PACKS PHYSICAL 77416 SHARLA MAGDALENO THERAPY 7 [facility]OS[facility] EVALUATIO INC INC N MOD COMPLEX 30 MINS BLOOD 13428 SHARLA MAGDALENO COUNT 7 [facility] COMPLETE INC INC AUTO&AUTO DIFRNTL WBC HEPATITIS 46528 SHARLA MAGDALENO C 7 [facility] [place] [address] SHARLA MAGDALENO FREE 7 [facility] [place] [address] SHARLA MAGDALENO THYROID 7 [facility]OS[facility] STIMULATI INC INC NG HORMONE TSH HEPATITIS 75721 SHARLA MAGDALENO B CORE 7 [facility] [place] [address] SHARLA MAGDALENO HEPATITIS 7 [facility] B INC INC SURFACE ANTIGEN INF AGT G0432 SHARLA MAGDALENO AB DETECT 7 [facility] EIA TECH INC INC HIV-1&/HI V-2 SCR COMPREHEN 39289 SHARLA MAGDALENO SIVE 7 [facility] METABOLIC INC INC PANEL COLLECTIO 51452 SHARLA MAGDALENO N VENOUS 7 [facility] BLOOD INC INC VENIPUNCT URE HEPATITIS 91813 SHARLA MAGDALENO A 7 [facility] ANTIBODY INC INC HAAB RADEX 62091 [place] STACY SPINE 7 MEDICAL LUMBOSACR IMAGING AL 2/3 ASS VIEWS RADEX 01511 SHARLA MAGDALENO SPINE 7 [facility]OS[facility] LUMBOSACR INC INC AL MINIMUM 4 VIEWS GONADOTRO 14493 SHARLA MAGDALENO PIN 7 [facility]OS[facility] CHORIONIC INC INC QUALITATI VE ANES 56278 [facility] INTEG 7 ANESTH EXTREMITI OF THE ES ANT BLUE TRUNK & PERINEUM NOS RMVL JAYJAY 14771 [facility] ALLRAN JR CTR VAD 7 PHYSICIAN W/SUBQ S GROUP PORT/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 STRIPER CTR/PRPH INSJ BLOOD 92839 SHARLA MAGDALENO COUNT 7 [facility] COMPLETE INC INC AUTO&AUTO DIFRNTL WBC COLLECTIO 72270 SHARLA MAGDALENO N VENOUS 7 [facility] BLOOD INC INC VENIPUNCT URE BASIC 53500 SHARLA MAGDALENO METABOLIC 7 [facility] [address] [place] STACY ABDOMEN & 6 MEDICAL PELVIS IMAGING W/CONTRAS ASS T MATERIAL ECG 57537 SHARLA BANG JR ROUTINE 6 [facility] W/LEAST P 12 LDS I&R ONLY RHYTHM 63018 SHARLA MAGDALENO ECG 1-3 6 [facility] LEADS INC INC TRACING ONLY W/O I&R BLOOD 70909 SHARLA MAGDALENO COUNT 6 [facility] COMPLETE INC INC AUTO&[place] [address] SHARLA MAGDALENO TROPONIN 6 [facility] QUANTITAT INC INC VINCENT RADIOLOGI 48361 SHARLA MAGDALENO C EXAM 6 [facility] CHEST 2 INC INC VIEWS FRONTAL&L ATERAL CREATINE 20565 SHARLA MAGDLAENO KINASE MB 6 [facility] FRACTION INC INC ONLY CREATINE 05820 SHARLA MAGDALENO KINASE 6 [facility] TOTAL INC INC THER 22767 SHARLA MAGDALENO PROPH/DX 6 [facility] NJX IV INC INC PUSH SINGLE/1S T SBST/DRUG ECG 40797 SHARLA MAGDALENO ROUTINE 6 [facility] ECG INC INC W/LEAST 12 LDS TRCG ONLY W/O I&R COMPREHEN 57098 SHARLA MAGDALENO SIVE 6 [facility] [place] [address] [place] HEAD/BRAI 6 MEDICAL ALEJANDRA N W/O IMAGING CONTRAST ASS MATERIAL CT THORAX [address] [place] STACY ALL 6 MEDICAL W/CONTRAS IMAGING T ASS MATERIAL RADIOLOGI 58086 [place] STACY ALL C EXAM 6 MEDICAL CHEST 2 IMAGING VIEWS ASS FRONTAL&L ATERAL FLUORODEO A9552 [facility] XYGLUCOSE 5 Y Y F-18 FDG [facility] DX UP TO 45 [place] [address] [place] МАРИЯ IMAGING [address] SERV ATTENUATI FOUNDATIO ON SKULL N BASE MID-THIGH COMPREHEN 71128 [place] SIVE 5 [facility] METABOLIC E E PANEL [facility] [place] 45011 [place] CENTRAL 5 [facility] VENOUS E E ACCESS [facility] DEV PLACEMENT INJECTION J1644 [place] HEPARIN 5 [facility] SODIUM E E PER 1000 [facility] UNITS INJECTION J0690 [place] 5 [facility]ALTH[facility] CEFAZOLIN E E SODIUM [facility] 500 MG INJECTION J1642 [place] HEPARIN 5 [facility] SODIUM E E PER 10 [facility] INSJ 32905 [place] TUNNELED 5 [facility] CTR VAD E E W/SUBQ [facility] PORT AGE 5 YR/> INJECTION J2250 [place] 5 [facility] MIDAZOLAM E E HCL PER [facility] 1 MG PROTHROMB 74548 [place] IN TIME 5 [facility]ALTHCAR E E [facility]ALS [facility] US VASC 60036 [place] ACCESS 5 [facility]ALTHCAR SITS VSL E E PATENCY [facility] NDL ENTRY GLUCOSE 95977 [place] QUANTITAT 5 [facility]ALTHCAR VINCENT BLOOD E E XCPT [facility] REAGENT STRIP BLOOD 99134 [place] COUNT 5 [facility]ALTHCAR COMPLETE E E AUTOMATED [facility] RMVL JAYJAY 79696 [place] CTR VAD 5 HEALTHCAR HEALTHCAR W/SUBQ E E PORT/SPRAY GUN STRIPER [facility] CTR/PRPH INSJ GUIDE C1769 [place] WIRE 5 [facility]ALTHCAR HEALTHCAR E E HOSPITALS HOSPITALS PORT C1788 [place] INDWELLIN 5 [facility]ALTHCAR G E E HOSPITALS HOSPITALS INJECTION J1200 [place] 5 HEALTHCAR HEALTHCAR DIPHENHYD E E RAMINE [facility] HCL UP TO 50 MG INJECTION J3010 [place] FENTANYL 5 HEALTHCAR HEALTHCAR CITRATE E E 0.1 MG [facility] INFUSION J7030 [place] NORMAL 5 [facility]ALTH[facility] HEALTHCAR SALINE E E SOLUTION [facility] [address] TH[place]AX [address] [place] AYOOB AND 5 MEDICAL W/CONTRAS [place] [address] [place] AYOOB AND ABDOMEN & 5 MEDICAL PELVIS SERV W/CONTRAS FOUNDATIO T N MATERIAL LOCM Q9967 UNIVERS UNIVERS [phone] 5 Y Y MG/ML [facility]PITAL [place] [address] MICHELLE STACY ALL ABDOMEN & 5 MEDICAL PELVIS IMAGING W/O ASS CONTRAST MATERIAL LOCM Q9967 SHARLA MAGDALENO [phone] 5 [facility] MG/ML INC [place] [address] MICHELLE STACY ALL ABDOMEN & 5 MEDICAL PELVIS IMAGING W/CONTRAS ASS T MATERIAL URNLS DIP 64665 SHARLA MAGDALENO 5 [facility] STICK/TAB INC INC LET REAGENT AUTO MICROSCOP Y INJECTION J1642 SHARLA MAGDALENO HEPARIN 5 [facility] SODIUM INC INC PER 10 UNITS CULTURE 46871 SHARLA MAGDALENO BACTERIAL 5 [facility] INC INC QUANTTATI VE COLONY COUNT URINE CT THORAX 83257 MICHELLE STACY ALL 5 MEDICAL W/CONTRAS IMAGING T ASS MATERIAL CHEMOTX 06392 SHARLA MAGDALENO ADMN IV 5 [facility] NFS TQ UP INC INC 1 HR SBST/DRUG INJECTION J1642 SHARLA MAGDALENO HEPARIN 5 [facility] SODIUM INC INC PER 10 UNITS COMPREHEN 16341 SHARLA MAGDALENO SIVE 5 [facility] METABOLIC INC INC PANEL BLOOD 67078 SHARLA MAGDALENO COUNT 5 [facility] COMPLETE INC INC AUTO&AUTO DIFRNTL WBC GRANISETR Q0166 SHARLA MAGDALENO ON HCL 1 5 [facility] MG ORL INC INC NOT >48 HR DOSE REGIMEN GRANISETR Q0166 SHARLA MAGDALENO ON HCL 1 5 [facility] MG ORL INC INC NOT >48 HR DOSE REGIMEN CHEMOTHER 07228 SHARLA MAGDALENO APY ADMN 5 [facility] IV INC INC INFUSION TQ EA HR INJECTION J9267 SHARLA MAGDALENO 5 [facility] PACLITAXE INC INC L 1 MG INJECTION J1642 SHARLAYENY MAGDALENO HEPARIN 5 [facility] SODIUM INC INC PER 10 UNITS CHEMOTX 78839 SHARLA MAGDALENO ADMN IV 5 [facility] NFS TQ EA INC INC SEQL NFS TO 1 HR CHEMOTX 43833 SHARLA MAGDALENO ADMN IV 5 [facility] NFS TQ UP INC INC 1 HR / SBST/DRUG INJECTION J9045 SHARLA MAGDALENO 5 [facility] CARBOPLAT INC INC IN 50 MG COLLECTIO 04748 SHARLA MAGDALENO N VENOUS 5 [facility] BLOOD INC INC VENIPUNCT URE COMPREHEN 79562 SHARLA MAGDALENO SIVE 5 [facility] METABOLIC INC INC PANEL BLOOD 02185 SHARLA MAGDALENO COUNT 5 [facility] COMPLETE INC INC AUTO&AUTO DIFRNTL WBC ANESTHESI 36447 [facility] SHIRA A ACCESS 5 ANESTH CENTRAL OF THE VENOUS BLUE CIRCULATI ON INSJ 62617 [facility] REMIGIO TUNNELED 5 PHYSICIAN CAM CTR VAD S GROUP W/SUBQ PORT AGE 5 YR/> FLUORO 53738 SHARLA MAGDALENO CENTRAL 5 [facility] VENOUS INC INC ACCESS DEV PLACEMENT INJECTION J1642 SHARLA MAGDALENO HEPARIN 5 [facility] SODIUM INC INC PER 10 UNITS INJECTION J0131 SHARLA MAGDALENO 5 [facility] ACETAMINO INC INC PHEN 10 MG INJECTION J2405 SHARLA MAGDALENO 5 [facility] ONDANSETR INC INC ON HCL PER 1 MG RADIOLOGI 53612 [place] [facility] 5 MEDICAL ALEJANDRA EXAMINATI IMAGING ON CHEST ASS SINGLE VIEW FRONTAL PORT C1788 SHRALA MAGDALENO INDWELLIN 5 [facility] G INC INC BASIC 13909 SHARLA MAGDALENO METABOLIC 5 [facility] PANEL INC INC CALCIUM TOTAL COLLECTIO 12515 SHARLA MAGDALENO N VENOUS 5 [facility] BLOOD INC INC VENIPUNCT URE ECG 09674 SHARLA MAGDALENO ROUTINE 5 [facility] ECG INC INC W/LEAST 12 LDS TRCG ONLY W/O I&R GONADOTRO 13348 SHARLA MAGDALENO PIN 5 [facility] CHORIONIC INC INC QUALITATI VE BLOOD 52247 SHARLA MAGDALENO COUNT 5 [facility] COMPLETE INC INC AUTO&AUTO DIFRNTL WBC ECG 13032 SHARLA BANG JR ROUTINE 5 [facility] W/LEAST P 12 LDS I&R ONLY BLOOD 34169 SHARLA MAGDALENO COUNT 5 [facility] COMPLETE INC INC AUTO&AUTO DIFRNTL WBC COMPREHEN 26664 SHARLA MAGDALENO SIVE 5 [facility] METABOLIC INC INC PANEL HOSPITAL G0463 SHARLA MAGDALENO OUTPATIEN 5 [facility] T CLIN INC INC VISIT ASSESS & MGMT PT RADIOLOGI 60066 [facility] 5 MEDICAL ALEJANDRA EXAMINATI IMAGING ON CHEST ASS [place] FRONTAL ECG 77395 SHARLA BANG JR ROUTINE 5 [facility] W/LEAST P 12 LDS I&R ONLY THERAPEUT 15022 SHARLA MAGDALENO IC 5 [facility] INJECTION INC INC IV PUSH EACH NEW DRUG FLUORODEO A9552 [facility] UNIVERS XYGLUCOSE 5 Y Y F-18 FDG [facility] DX UP TO 45 MCI PET 595[address] [place] МАРИЯ IMAGING [address] SERV ATTENUATI FOUNDATIO ON SKULL N BASE MID-THIGH COMPREHEN 14157 SHARLA MAGDALENO SIVE 5 [facility] METABOLIC INC INC PANEL INJECTION J1642 SHARLA MAGDALENO HEPARIN 5 [facility] SODIUM INC INC PER 10 UNITS BLOOD 47014 SHARLA MAGDALENO COUNT 5 [facility] COMPLETE INC INC AUTO&AUTO DIFRNTL WBC THERAPEUT 94985 [facility] IC 5 Y Y INJECTION HOSPITAL HOSPITAL IV PUSH EACH NEW DRUG CHEMOTHER 53285 [facility] APY ADMN 5 Y Y IV HOSPITAL HOSPITAL INFUSION TQ EA HR ONDANSETR Q0162 [facility] ON 1 MG 5 Y Y ORL NOT [facility] EXCEED 48 HR DOSE REG INJECTION J2060 [facility] 5 Y Y LORAZEPAM [facility] 2 MG CHEMOTX 02547 [facility] ADMN IV 5 Y Y NFS TQ [facility] SEQL NFS TO 1 HR INJ J1720 [facility] HYDROCORT 5 Y Y [facility] SODIUM SUCCINATE TO 100 MG INJECTION J9267 [facility] 5 Y Y PACLITAXE [facility] L 1 MG INFUSION J7040 [facility] NORMAL 5 Y Y SALINE [facility] SOLUTION STERILE CHEMOTX 24460 [facility] ADMN IV 5 Y Y NFS TQ [facility] 1 HR SBST/DRUG INJECTION J9045 [facility] MG DEXAMETHA J8540 [facility] SONE ORAL 5 Y Y 0.25 [facility] H[facility] HOSPITAL INJECTION J1200 [facility] 5 Y Y [facility] RAMINE HCL UP TO 50 MG INFUSION J7050 [facility] NORMAL 5 Y Y [facility] SOLUTION 250 CC COMPREHEN 29348 SHARLA MAGDALENO SIVE 5 [facility]OS[facility] METABOLIC INC INC PANEL INJECTION J1642 SHARLA MAGDALENO HEPARIN 5 [facility]OS[facility] SODIUM INC INC PER 10 UNITS BLOOD 08590 SHARLA MAGDALENO COUNT 5 [facility] COMPLETE INC INC AUTO&AUTO DIFRNTL WBC IRRIGAJ 42245 SHARLA MAGDALENO IMPLNTD 5 [facility] VENOUS INC INC ACCESS DRUG DELIVERY SYST BLOOD 21960 SHARLA MAGDALENO COUNT 5 [facility] COMPLETE INC INC AUTO&AUTO DIFRNTL WBC INJECTION J1642 SHARLA MAGDALENO HEPARIN 5 [facility]OS[facility] SODIUM INC INC PER 10 UNITS COLLECTIO 46746 SHARLA MAGDALENO N VENOUS 5 [facility] BLOOD INC INC VENIPUNCT URE COMPREHEN 61871 SHARLA MAGDALENO SIVE 5 [facility] MEM HOSP METABOLIC INC INC PANEL INSJ PRPH 23208 [facility] CVC W/O 5 Y Y [facility] PORT/SPRAY GUN STRIPER AGE 5 YR/> CHEMOTX 25520 [facility] ADMN IV 5 Y Y NFS TQ UP [facility] 1 HR SBST/DRUG INJECTION J1200 [facility] UNIVERS 5 Y Y DIPHENHYD [facility] RAMINE HCL UP TO 50 MG DEXAMETHA J8540 [facility] SONE ORAL 5 Y Y 0.25 MG H[facility]PITAL HOSPITAL INFUSION J7050 [facility] NORMAL 5 Y Y SALINE [facility] SOLUTION 250 CC COMPREHEN 82483 [facility] SIVE 5 Y Y METABOLIC [facility] PANEL INJ J1720 [facility] HYDROCORT 5 Y Y [facility] SODIUM SUCCINATE TO 100 MG INJECTION J9267 [facility] 5 Y Y PACLITAXE [facility] L 1 MG INFUSION J7040 [facility] NORMAL 5 Y Y SALINE [facility] SOLUTION STERILE INJECTION J2060 [facility] 5 Y Y LORAZEPAM [facility] 2 MG CHEMOTX 85770 [facility] ADMN IV 5 Y Y NFS TQ EA [facility] SEQL NFS TO 1 HR BLOOD 67820 [facility] COUNT 5 Y Y COMPLETE [facility] AUTO&AUTO DIFRNTL WBC CHEMOTHER 07453 [facility] APY ADMN 5 Y Y IV HOSPITAL HOSPITAL INFUSION TQ EA HR THERAPEUT 37590 [facility] IC 5 Y Y INJECTION [facility] IV PUSH EACH NEW DRUG ONDANSETR Q0162 [facility] ON 1 MG 5 Y Y ORL NOT [facility] EXCEED 48 HR DOSE REG LOCM Q9967 [facility] 300-399 5 Y Y MG/ML [facility] [place] [address] [facility] ABDOMEN & 5 Y Y PELVIS [facility] W/CONTRAS T MATERIAL CT SOFT 04750 [place] RASLAU TISSUE 5 MEDICAL FLA NECK SERV W/CONTRAS FOUNDATIO T N MATERIAL CT THORAX 91696 [facility] 5 Y Y W/[facility] T MATERIAL INJECTION J2405 [facility] 5 [facility] PER 1 MG CONTINUIN 00343 [facility] G MEDICAL 5 Y Y PHYSICS [facility] CONSLTJ MI WK INJECTION J1200 [facility] 5 Y Y DIPHENHYD [facility] RAMINE HCL UP TO 50 MG INFUSION J7030 [facility] NORMAL 5 Y Y SALINE [facility] SOLUTION 1000 CC INJECTION J2704 [facility] PROPOFOL 5 Y Y 10 MG HOSPITAL HOSPITAL INJECTION J3010 [facility] FENTANYL 5 Y Y CITRATE [facility] 0.1 MG INSERTION 02399 [facility] UTERINE 5 Y Y TANDEM&/V [facility] AGINAL OVOIDS INJECTION J1100 [facility] 5 Y Y DEXAMETHO [facility] SONE SODIUM PHOSPHATE 1 MG INJECTION J2250 [facility] 5 Y Y MIDAZOLAM [facility] HCL PER 1 MG INJECTION J2175 [facility] 5 Y Y MEPERIDIN [facility] E HCL PER 100 MG REMOTE 05118 [facility] AFTLD 5 Y Y RADIONUCL [facility] MATTIE BRACHYTX 2-[address] [place] [address] [facility] DEVICES 5 Y Y DESIGN & HOSPITAL HOSPITAL CONSTRUCT ION SIMPLE THER RAD 28837 [facility] [address] [facility] FIELD SETTING COMPLEX ANESTHESI 24070 [place] A VAGINAL 5 MEDICAL DESHAUN SERVICES PROCEDURE W/BIOPSY NOS BRACHYTX 54984 [facility] 5 Y Y [facility] W/DOSIMET RY CALVIN BRACHYTX C1717 [facility] NONSTRAND 5 Y Y ED [facility] DOSE IRIDIUM-1 92 PER SRC BRACHYTX 85148 [facility] ISODO 5 Y Y PLN [facility] W/DOSIMET RY CALVIN BRACHYTX C1717 [facility] 5 Y Y ED [facility] HOSPITAL DOSE IRIDIUM-1 92 PER SRC ANESTHESI 94735 AYSE CORTEZ A VAGINAL 5 MEDICAL DESHAUN SERVICES PROCEDURE W/BIOPSY NOS THER RAD 96553 [facility] 5 Y Y IDED [facility] [place] [address] [facility] DEVICES 5 Y Y DESIGN & HOSPITAL HOSPITAL CONSTRUCT ION SIMPLE REMOTE 09140 [facility] AFTLD 5 Y Y RADIONUCL [facility] MATTIE BRACHYTX 2-12 CHANNEL INJECTION J1170 [facility] 5 Y Y HYDROMORP [facility] RADHA UP TO 4 MG INJECTION J2175 [facility] 5 Y Y MEPERIDIN [facility] E HCL PER 100 MG INSERTION 99121 [facility] UTERINE 5 Y Y TANDEM&/V HOSPITAL HOSPITAL AGINAL OVOIDS INJECTION J2704 [facility] PROPOFOL 5 Y Y 10 MG [facility] INJECTION J1200 [facility] 5 Y Y [facility] RAMINE HCL UP TO 50 MG CONTINUIN 25580 [facility] MEDICAL 5 Y Y PHYSICS [facility] CONSLTJ MI WK INJECTION J3010 [facility] FENTANYL 5 Y Y CITRATE [facility] 0.1 MG INSERTION 67315 AYSE FEDCK UTERINE 5 MEDICAL CHRISTIANO TANDEM&/V SERV AGINAL FOUNDATIO OVOIDS N INJECTION J2250 [facility] 5 Y Y MIDAZOLAM [facility] HCL PER 1 MG REMOTE 43337 AYSE BONNERCK AFTLD 5 MEDICAL CHRISTIANO RADIONUCL SERV MATTIE FOUNDATIO BRACHYTX N 2-[address] [place] [address] AYSE BONNERNEREIDA DEVICES 5 MEDICAL CHRISTIANO DESIGN & SERV CONSTRUCT FOUNDATIO ION N [place] [address] [place] HACK SIMULAJ-A 5 MEDICAL CHRISTIANO IDED SERV FIELD FOUNDATIO SETTING N COMPLEX ANESTHESI 68645 [place] JUSTIN A VAGINAL 5 MEDICAL CRY SERVICES PROCEDURE W/BIOPSY NOS BRACHYTX 24743 AYSE BONNERNEREIDA ISODOSE 5 MEDICAL CHRISTIANO PLN SERV INTERMED FOUNDATIO W/DOSIMET N RY CALVIN RADIATION 93011 [facility] 5 Y Y [facility] DELIVERY 1 MEV => COMPLEX RADIATION 71334 [place] [address] Y Y [facility] DEL[facility] 1 MEV => COMPLEX RADIATION 25160 [facility] 5 [facility]IV[facility] 1 MEV => COMPLEX INFUSION J7040 [facility] NORMAL 5 Y Y [facility] SOLUTION STERILE INJECTION J3475 [facility]IVERS 5 Y Y MAGNESIUM [facility] SULPH[place] 500 [place] [address] [facility] INFUSION 5 Y Y THER [facility] PROPH ADDL SEQUENTIA L TO 1 HR COMPREHEN 04366 [facility] SIVE 5 Y Y METABOLIC [facility] PANEL COLLECTIO 13291 [facility] N VENOUS 5 Y Y BLOOD [facility] VENIPUNCT URE INJECTION J3480 [facility] 5 Y Y POTASSIUM [facility] CHLORIDE PER 2 MEQ ONDANSETR Q0162 [facility] ON 1 MG 5 Y Y ORL NOT [facility] EXCEED 48 HR DOSE REG BLOOD 72370 [facility] COUNT 5 Y Y COMPLETE [facility] AUTO&AUTO DIFRNTL WBC INFUSION J7030 [facility] NORMAL 5 Y Y SALINE [facility] SOLUTION 1000 CC DEXAMETHA J8540 [facility] SONE ORAL 5 Y Y 0.25 MG [facility] APREPITAN J8501 [facility] T ORAL 5 5 Y Y MG HOSPITAL HOSPITAL INJECTION J9060 [facility] 5 Y Y CISPLATIN [facility] POWDER OR SOLUTION 10 MG CHEMOTX 85593 [facility] ADMN IV 5 Y Y NFS TQ UP [facility] 1 HR SBST/[place] [address] [facility] 5 Y Y THERAPY [facility] PROPHYLAX IS/DX EA HOUR RADIATION 47815 [facility] 5 Y Y [facility] DELIVERY 1 MEV => COMPLEX RADIATION 79395 DC KATHLEEN 5 MEDICAL CHRISTIANO TREATMENT SERV FOUNDATIO MANAGEMEN N T 5 TREATMENT S RADIATION 40458 [facility] 5 Y Y TREATMENT [facility] DELIVERY 1 MEV => COMPLEX COLLECTIO 82462 [facility] N VENOUS 5 Y Y BLOOD [facility] VENIPUNCT URE BLOOD 26600 [facility] COUNT 5 Y Y COMPLETE HOSPITAL HOSPITAL AUTOMATED URNLS DIP 06440 [facility] 5 Y Y STICK/TAB HOSPITAL HOSPITAL LET REAGENT AUTO MICROSCOP Y ECG 82010 AYSE RIVAS LINDSAY ROUTINE 5 MEDICAL ECG SERV W/LEAST FOUNDATIO 12 LDS N I&R ONLY ECG 81868 [facility] ROUTINE 5 Y Y ECG [facility] W/LEAST 12 LDS TRCG ONLY W/O I&R BASIC 86256 [facility] METABOLIC 5 Y Y PANEL [facility] CALCIUM TOTAL CONTINUIN 88745 [facility] MEDICAL 5 Y Y PHYSICS [facility] CONSLTJ MI WK CULTURE 22129 [facility] BACTERIAL 5 Y Y [facility] QUANTTATI VE COLONY COUNT URINE THERAPEUT 82823 [facility] IC 5 Y Y RADIOLOGY [facility] PORT IMAGES(S) RADIATION 51281 [facility] 5 Y Y [facility] DELIVERY 1 MEV => COMPLEX RADIATION 78675 [facility] 5 Y Y [facility] DELIVERY 1 MEV => COMPLEX INFUSION J7040 [facility] NORMAL 5 Y Y [facility] SOLUTION STERILE RADIATION 24073 [facility] 5 Y Y TREATMENT [facility] DELIVERY 1 MEV => [place] [address] [facility] INFUSION 5 Y Y THER [facility] PROPH ADDL SEQUENTIA L TO 1 HR COMPREHEN 94475 [facility] SIVE 5 Y Y [facility]ABOLIC [facility] PANEL INJECTION J3480 [facility] 5 Y Y [facility] CHLORIDE PER 2 MEQ COLLECTIO 31318 [facility] N VENOUS 5 Y Y BLOOD [facility] VENIPUNCT URE INJECTION J3475 [facility] 5 Y Y MAGNESIUM [facility] SULPHATE PER 500 MG INJECTION J1453 [facility] 5 Y Y FOSAPREPI [facility] TANT 1 [place] NFS [address]26 [facility] THERAPY 5 Y Y PROPHYLAX [facility] IS/DX CONCURREN T NFS ONDANSETR Q0162 [facility] ON 1 MG 5 Y Y ORL NOT [facility] EXCEED 48 HR DOSE REG BLOOD 24932 [facility] COUNT 5 Y Y COMPLETE [facility] AUTO&[place] [address] [facility] INFUSION 5 Y Y THERAPY [facility] PROPHYLAX IS/DX EA HOUR CHEMOTX 57909 [facility] ADMN IV 5 Y Y NFS TQ UP [facility] 1 HR SBST/DRUG INJECTION J9060 [facility] 5 Y Y CISPLATIN [facility] POWDER OR SOLUTION 10 MG INFUSION J7050 [facility] NORMAL 5 Y Y SALINE [facility] SOLUTION 250 CC DEXAMETHA J8540 [facility] SON ORAL 5 Y Y 0.25 MG [facility] INFUSION J7030 [facility] 5 Y Y SALINE [facility] SOLUTION 1000 CC GROUND A0425 MAREK MAREK MILEAGE 5 [place] PER URBAN URBAN STATUTE COGOVT COGOVT MILE AMB A0427 MAREK MAREK SERVICE 5 [place] ALS URBAN URBAN EMERGENCY COGOVT COGOVT TRANSPORT LEVEL 1 RADIATION 64430 [facility] 5 Y Y TREATMENT [facility] DELIVERY 1 MEV => COMPLEX RADIATION 72514 [facility] 5 Y Y TREATMENT [facility] DELIVERY 1 MEV => COMPLEX RADIATION 09811 [place] [address] MEDICAL CHRISTIANO TREATMENT SERV FOUNDATIO MANAGEMEN N T 5 TREATMENT S GLUCOSE 48092 [facility] QUANTITAT 5 Y Y VINCENT BLOOD [facility] XCPT REAGENT STRIP THERAPEUT 37465 [facility] 5 Y Y RADIOLOGY [facility] PORT IMAGES(S) CONTINUIN 40305 [facility] 5 Y Y PHYSICS [facility] CONSLTJ MI WK RADIATION 07990 [facility] 5 Y Y TREATMENT [facility] DELIVERY 1 MEV => COMPLEX RADIATION 59316 [facility] 5 Y Y TREATMENT [facility] DELIVERY 1 MEV => COMPLEX INFUSION J7040 [facility] NORMAL 5 Y Y SALINE [facility] SOLUTION STERILE COMPREHEN 03150 [facility] SIVE 5 Y [place] [facility] [place] [address] [facility] INFUSION 5 Y Y THER [facility] PROPH ADDL SEQUENTIA L TO 1 HR INJECTION J3475 [facility] 5 Y Y MAGNESIUM [facility] SULPHATE PER 500 MG INJECTION J3480 [facility] 5 Y Y POTASSIUM [facility] CHLORIDE PER 2 MEQ COLLECTIO 33081 [facility] N VENOUS 5 Y Y BLOOD [facility] VENIPUNCT URE ONDANSETR Q0162 [facility] ON 1 MG 5 Y [facility] EXCEED 48 HR DOSE REG BLOOD 84163 [facility] COUNT 5 Y Y COMPLETE [facility] AUTO&[place] [address] [facility] 5 Y Y THERAPY [facility] PROPHYLAX IS/DX EA HOUR CHEMOTX 03577 [facility] ADMN IV 5 Y Y NFS TQ UP [facility] 1 HR SBST/DRUG APREPITAN J8501 [facility] T ORAL 5 5 Y Y [facility] INFUSION J7030 [facility] NORMAL 5 Y Y SALINE [facility] SOLUTION 1000 CC DEXAMETHA J8540 [facility] SONE ORAL 5 Y Y 0.25 MG [facility] HOSPITAL INJECTION J9060 [facility] 5 Y Y CISPLATIN [facility] POWDER OR SOLUTION 10 MG RADJ DLVR 31158 [facility] 3/> 4 Y Y [facility] CUST[facility] BLKING 08-16MEV RADJ DLVR 97437 [facility] 3/> 4 Y Y [facility] 08-16MEV CONTINUIN 24528 [facility] MEDICAL Y Y PHYSICS [facility] CONSLTJ MI WK RADJ DLVR 97624 [facility] 3/> 4 Y Y [facility] BL[facility] 08-16MEV THERAPEUT 39274 [facility] 4 Y Y RADIOLOGY [facility] PORT IMAGES(S) RADIATION 37205 [facility] 4 [facility] MANAGEMEN N [place] [address] [place] [address] [facility] HEAD/BRAI 4 Y Y N W/O & [facility] W/CONTRAS T MATERIAL LOCM Q9967 [facility] [phone] 4 Y Y MG/ML [facility] IODINE CONCENTRA TION PER ML RADJ DLVR 74745 [facility] 3/> 4 Y Y [facility] BLKING 08-16MEV RADJ DLVR 10550 [facility] 3/> 4 Y Y [facility] 08-16MEV RADJ DLVR 66417 [facility] 3/> 4 Y Y [facility] 08-16MEV RADJ DLVR 11202 [facility] 3/> 4 Y Y [facility] BLKING 08-16MEV [place] [address] [facility] INFUSION 4 Y Y THERAPY [facility] PROPHYLAX IS/DX EA HOUR CHEMOTX 84804 [facility] ADMN IV 4 Y Y NFS TQ UP [facility] 1 HR SBST/DRUG INJECTION J9060 [facility] 4 Y Y CISPLATIN [facility] POWDER OR SOLUTION 10 MG DEXAMETHA J8540 [facility] SONE ORAL 4 Y Y 0.25 MG [facility] APREPITAN J8501 [facility] T ORAL 5 4 Y Y MG [facility] INFUSION J7030 [facility] UNIVERS NORMAL 4 Y Y SALINE [facility] SOLUTION 1000 CC ONDANSETR Q0162 [facility] ON 1 MG 4 Y Y [facility] H[facility]PITAL EXCEED 48 HR DOSE REG BLOOD 15864 [facility] COUNT 4 Y Y COMPLETE [facility] AUTO&AUTO DIFRNTL WBC INJECTION J3475 [facility] 4 Y Y MAGNESIUM [facility] SULPHATE PER 500 MG INFUSION J7040 [facility] NORMAL 4 Y Y SALINE [facility] [place] [address] [facility] INFUSION 4 Y Y THER HOSPITAL HOSPITAL PROPH ADDL SEQUENTIA L TO 1 HR COMPREHEN 63556 [facility] SIVE 4 Y [facility] PANEL INJECTION J3480 [facility] 4 Y Y [facility] CHLOR[facility] PER 2 MEQ COLLECTIO 55375 [facility] VENOUS 4 Y Y BLOOD [facility] VENIPUNCT URE RADIATION 16290 [facility] 4 MEDICAL JOSÉ TREATMENT SERV FOUNDATIO MANAGEMEN N T 5 TREATMENT S THERAPEUT 53251 [facility] 4 Y Y RADIOLOGY [facility] PORT IMAGES(S) RADJ DLVR 85350 [facility] 3/> 4 Y Y [facility] CUSTOM BLKING 11-MEV CONTINUIN 45703 [facility] 4 Y Y PHYSICS [facility] CONSLTJ MI WK RADJ DLVR 60084 [facility] 3/> 4 Y Y [facility] CUSTOM BLKING 11MEV RADJ DLVR 12586 [facility] 3/> 4 Y Y [facility] CUSTOM BLKING -19MEV RADJ DLVR 40788 [facility] 3/> 4 Y Y [facility] [place] [address] [facility] 4 Y Y THERAPY [facility] PROPHYLAX IS/DX EA HOUR CHEMOTX 55210 [facility] ADMN IV 4 Y Y NFS [facility] 1 HR SBST/DRUG INFUSION J7030 [facility] NORMAL 4 Y Y SALINE [facility] SOLUTION 1000 CC APREPITAN J8501 [facility] T ORAL 5 4 Y Y MG HOSPITAL HOSPITAL DEXAMETHA J8540 [facility] SONE ORAL 4 Y Y 0.25 [facility]PITAL INJECTION J9060 [facility] 4 Y Y CISPLATIN [facility] POWDER OR SOLUTION 10 MG INFUSION J7040 [facility] NORMAL 4 Y Y SALINE [facility] SOLUTION STERILE INJECTION J3475 [facility] 4 Y [facility] SULPHATE PER 500 MG COMPREHEN 91916 [facility] SIVE 4 Y [place] [address] [facility] INFUSION 4 Y Y THER [facility] PROPH ADDL SEQUENTIA L TO 1 HR INJECTION J3480 [facility] 4 Y Y POTASSIUM [facility] CHLORIDE PER 2 MEQ COLLECTIO 43113 [facility] N VENOUS 4 Y Y BLOOD [facility] VENIPUNCT URE BLOOD 25405 [facility] COUNT 4 Y Y COMPLETE [facility] AUTO&AUTO DIFRNTL WBC ONDANSETR Q0162 [facility] ON 1 MG 4 Y Y ORL [facility] HOSPITAL EXCEED 48 [place] [address] [facility] [address] [facility] FIELD SETTING SIMPLE RADIATION 86338 AYSE WANG 4 MEDICAL CHRISTIANO TREATMENT SERV FOUNDATIO MANAGEMEN N T 5 TREATMENT S RADJ DLVR 72285 [facility] 3/> 4 Y Y AREAS [facility] CUSTOM BLKING 08-16MEV [place] [address] [facility] DEVICES 4 Y Y DESIGN & [facility] CONSTRUCT ION COMPLEX 3-D 77173 [facility] RADIOTHER 4 Y Y [facility] DOSE-VOLU ME HISTOGRAM S BASIC 86447 [facility] RADIATION 4 Y Y [facility] [place] [address] [facility] GUIDANCE 4 Y Y RADIATION [facility] THERAPY FLDS PLACEMENT THER RAD 95129 [facility] [address] [facility] FIELD SETTING COMPLEX THERAPEUT 19853 AYSE WANG IC 4 MEDICAL CHRISTIANO RADIOLOGY SERV TX FOUNDATIO PLANNING N COMPLEX CT THORAX 75232 [facility] 4 Y Y W/[place] [address] [facility] ABDOMEN & 4 Y Y PELVIS [facility] W/[facility] T MATERIAL FLUORODEO A9552 [facility] XYGLUCOSE 4 Y Y F-18 FDG [facility] DX UP TO 45 MCI LOCM Q9967 [place] [address]-399 4 Y Y MG/ML [facility] IODINE CONCENTRA TION [place] ML PET 82749 AYSE MARTIN PAR IMAGING [address] SERV ATTENUATI FOUNDATIO [place] [address] [facility] SURG 4 Y OF PATHOLOGY [place] [facility] GROSS&JAMES ROSCOPIC EXAM PATH 57625 [facility] CONSLTJ 4 Y OF SURG 1ST [place] BLK HOSPI FROZEN SCTJ 1 SPEC IMHISTOCH 13544 [facility] EM/CYTCHM 4 Y OF 1ST [place] ANTIBODY HOSPI STAIN PROCEDURE ANES 51443 [facility] HYSTEROS[facility] 4 LTH MAR OPY&/HYST ANESTHESI EROSALPIN A PSC GOGRAPHY W/BX HYSTEROSC 01753 AYSE STOKES OPY BX 4 MEDICAL MAR ENDOMETRI SERV UM&/POLYP FOUNDATIO C W/WO N D&C BLOOD 42511 [facility] COUNT 4 Y Y HEMATOCRI [facility] T CYTP 69942 [facility] C[facility]/ 4 Y OF MILAGROS VAGINAL [place] REQ HOSPI INTERP PHYSICIAN CYTP C/V 57107 [facility] AUTO THIN 4 Y Y LYR [facility] PREPJ SCR MNL RESCR PHYS BLOOD 94832 [facility] COUNT 4 Y Y HEMOGLOBI [facility] N COLLECTIO 18981 [facility] N VENOUS 4 Y Y BLOOD [facility] VENIPUNCT URE URINE 70848 AYSE STOKES 4 MEDICAL MAR TEST SERV VISUAL [place] [address] [facility] [place] [facility] TRANSVAGI 4 RADIOLOGY NAL GROUND A0425 [facility] MILE AMBULANCE A0429 [facility] SERVICE 4 [facility] [place] [address] [facility] [place] [facility] ABDOMEN & 4 RADIOLOGY PELVIS W/CONTRAS T MATERIAL BLOOD 96160 [facility] SWINEY OCCULT 4 PAT PAT PEROXIDAS E ACTV QUAL FECES 1-3 [facility] 18795 [facility] DISCHARGE 3 Y OF YASH DAY [place] MANAGEMEN PEDIA T 30 MIN/< S[facility] HOSP 68878 [facility] CARE 3 Y OF YASH F/E/M NML [place] NB MI D PEDIA HX&XM [facility] 54758 [facility] NB INFT 3 Y OF YASH INITIATIO [place] N DX&TX PEDIA Encounters Encounter Start End Date Code Location Performer Type Date [facility] SH[facility]LA - 7 7 [facility] OUTPATIEN [facility] SHARLA [facility] 7 7 [facility] OUTPATIEN [facility] OFFICE 37438 [facility] MARY[facility]Z [facility] 7 7 PHYSICIAN T VISIT S GROUP 15 MINUTES EMERGENCY 56302 [facility] HAMMONDS DEPT 7 7 [facility] HIGH SEVERITY& THREAT [facility] SHARLA - 7 7 [facility] OUTPATIEN [facility] EMERGENCY 48291 [facility] 7 7 [facility] DEPARTMEN [facility] T VISIT HIGH/URGE NT SEVERITY HOSPITAL SH[facility]LA - 7 7 [facility] OUTPATIEN [facility] SHARLA - 7 7 [facility] SHARLA - 7 7 [facility] SHARLA - 7 7 [facility] OUTPATIEN [facility] OFFICE 84887 [facility] 7 PHYSICIAN T VISIT S GROUP 25 MINUTES EMERGENCY 41101 [facility] VILLASENOR 7 7 PHYSICIAN DEPARTMEN S, [facility] T VISIT HIGH/URGE NT SEVERITY EMERGENCY 74254 [facility] BABCOCK DEPT 7 7 PHYSICIAN VISIT S, PLLC HIGH SEVERITY& THREAT FUNCJ EMERGENCY 56326 [facility] 7 7 [facility] DEPARTMEN INC T VISIT MODERATE SEVERITY [facility]OSP[facility] - 7 7 [facility] OUTPATIEN INC T EMERGENCY 93124 [facility] GRAMAJO DEPT 7 7 PHYSICIAN VISIT S, [facility] HIGH SEVERITY& THREAT FUNJ EMERGENCY 17186 [facility] BABCOCK 7 7 PHYSICIAN DEPARTMEN S, [facility] T VISIT HIGH/URGE NT SEVERITY [facility]OSPITAL [facility] - 7 7 [facility] OUTPATIEN INC T OFFICE 40529 [facility] WH[facility] 7 7 PHYSICIAN T VISIT S GROUP 25 MINUTES OFFICE 99988 [facility] WHITEPATIEN 7 7 PHYSICIAN T VISIT S GROUP 25 MINUTES EMERGENCY 16293 [facility] BABCOCK 7 7 PHYSICIAN DEPARTMEN S, [facility] T VISIT HIGH/URGE NT SEVERITY HOSPITAL HSARLA - 7 7 [facility] OUTPATIEN INC T EMERGENCY 01951 [facility] 7 7 [facility] DEPARTMEN INC T VISIT LOW/MODER SEVERITY EMERGENCY 95856 [facility] SARGENT 7 7 PHYSICIAN U [facility] T VISIT HIGH/URGE NT SEVERITY HOSPITAL SHARLA - 7 7 [facility] OUTPATIEN INC T EMERGENCY 92340 [facility] 7 7 [facility] DEPARTMEN INC T VISIT MODERATE SEVERITY [facility]OSPITAL SH[facility]LA - 7 7 [facility] OUTPATIEN INC T OFFICE 36936 [facility] OUTPATIEN 7 7 PHYSICIAN T VISIT S GROUP 25 MINUTES OFFICE 43832 [facility] MARYCRU[facility] OUTPATIEN 7 7 PHYSICIAN T VISIT S GROUP 15 MINUTES HOSPITAL SHARLA - 7 7 [facility] OUTPATIEN INC T HOSPITAL SH[facility]LA - 7 7 [facility] OUTPATIEN INC T OFFICE 21749 [facility] OUTPATIEN 7 7 PHYSICIAN T VISIT S GROUP 25 MINUTES OFFICE 92331 [facility] OUTPATIEN 7 7 PHYSICIAN T NEW 30 S GROUP MINUTES HOSPITAL SH[facility]LA - 7 7 [facility] OUTPATIEN [facility] T EMERGENCY 54379 COL[facility] BABCOCK 7 7 PHYSICIAN DEPARTMEN S, [facility] T VISIT MODERATE SEVERITY HOSPITAL SHARLA - 7 7 [facility] OUTPATIEN [facility] SHARLA - 7 7 [facility] OUTPATIEN [facility] OFFICE 73789 [facility] MARYCRU[facility] OUTPATIEN 7 7 PHYSICIAN T VISIT S GROUP 10 MINUTES OFFICE 33239 [facility] 6 [facility] 15 P MINUTES HOSPITAL SHARLA - 6 6 [facility] OFFICE 44449 [facility] 6 [facility] 10 P MINUTES EMERGENCY 51334 [facility] HAMMONDS 6 6 PHYSICIAN DEBBY GOSS S, [facility] T VISIT HIGH/URGE NT SEVERITY EMERGENCY 01358 [facility] BABCOCK DEPT 6 6 PHYSICIAN JAMES VISIT S, [facility] HIGH SEVERITY& THREAT FUN EMERGENCY 53130 [facility]LA 6 6 [facility] DEPARTMEN INC T VISIT MODERATE SEVERITY HOSPITAL SHARLA - 6 6 [facility] OUTPATIEN [facility] EMERGENCY 84468 COL[facility] SIBLEY 6 6 PHYSICIAN DEPARTMEN S, [facility] T VISIT HIGH/URGE NT SEVERITY EMERGENCY 25641 [facility] BABCOCK DEPT 6 6 PHYSICIAN JAMES VISIT S, PLLC HIGH [facility]VERITY& THREAT [facility] - 5 5 Y [facility] T EMERGENC[facility] 00471 BUBBA MAC DEPT 5 5 CO [employer] [facility] VISIT HIGH SEVERITY& THREAT FUN OFFICE 46244 MICHELLE MICHELLE OUTPATIEN 5 5 [facility] T VISIT 5 MINUTES HOSPITAL SHARLA - 5 5 [facility] OUTPATIEN INC [facility]LA - 5 5 [facility] OUTPATIEN INC T OFFICE 75780 [facility] MICHELLE OUTPATIEN 5 5 [facility] T VISIT 5 HOSPITAL MINUTES P HOSPITAL SHARLA - 5 5 [facility] OUTPATIEN INC T OFFICE 70032 [facility] MICHELLE OUTPATIEN 5 5 [facility] VISIT 5 HOSPITAL MINUTES P OFFICE 36492 [facility] MICHELLE OUTPATIEN 5 5 [facility] T VISIT 5 HOSPITAL MINUTES P HOSPITAL SHARLA - 5 5 [facility] OUTPATIEN INC T OFFICE 68258 [facility] MICHELLE OUTPATIEN 5 5 [facility] T VISIT 5 HOSPITAL MINUTES P [facility]OSPITAL SH[facility]LA - 5 5 [facility] OUTPATIEN INC [facility] SH[facility]LA [facility] 5 5 [facility] OUTPAT[facility] INC T OFFICE 49592 [facility] OUTPATIEN 5 5 PHYSICIAN CAM T NEW 30 S GROUP MINUTES HOSPITAL SH[facility]LA - 5 5 [facility] OUTPATIEN INC EMERGENCY 73108 SHARLA BUENROSTRO 5 5 [facility] T VISIT P HIGH/URGE NT SEVERITY [facility]OSPITAL [facility] - 5 5 [facility] OUTPATIEN INC [facility]ERSIT - 5 5 [facility] 5 [facility] 5 5 [facility] - 5 5 [facility] - 5 5 [facility] - 5 5 Y [facility] - 5 5 Y [facility] T OFFICE 12626 [facility] 5 [address] UNIVERSIT - 5 5 Y [facility] - 5 5 Y [facility] - 5 5 Y [facility] - 5 5 Y [facility] - 5 5 Y [facility] - 5 5 Y [facility] - 5 5 Y [facility] - 5 5 Y [facility] - 5 5 Y [facility] T OFFICE 21724 [facility] 5 [address] UNIVERSIT - 5 5 Y [facility] 5 5 Y [facility] - 5 5 [facility] - 5 5 Y [facility] EMERGENCY 05090 UNIVERSIT 5 5 Y [facility] UNIVERS[facility] - 5 5 Y [facility] - 5 5 Y [facility] - 5 5 Y [facility] - 4 4 Y [facility] - 4 4 Y [facility] - 4 4 Y [facility] - 4 4 Y [facility] - 4 4 Y [facility] - 4 4 Y [facility] - 4 4 Y [facility] - 4 4 Y [facility] - 4 4 Y [facility] - 4 4 Y [facility] - 4 4 Y [facility] - 4 4 Y [facility] - 4 4 Y [facility] - 4 4 Y [facility] OFFICE 77472 [facility] 4 4 Y [facility] 15 MINUTES OFFICE 86358 [facility] 4 4 Y [facility] UNIVERSIT - 4 4 Y [facility] T OFFICE 24210 AYSE WANG CONSULTAT 4 4 MEDICAL CHRISTIANO ION SERV NEW/ESTAB FOUNDATIO PATIENT N 80 MIN HOSPITAL UNIVERSIT - 4 4 Y [facility] T OFFICE 85666 [facility] 4 4 [place] [facility] T NEW [facility] T T [facility] UNIVERSIT - 4 4 Y [facility] T OFFICE 18769 AYSE STOKES OUTPATIEN 4 4 MEDICAL MAR T NEW 30 SERV MINUTES FOUNDATIO N EMERGENCY 06519 AVILA MUÑOZ DEPT 4 4 VISIT HIGH SEVERITY& THREAT FUNJ EMERGENCY 11667 VORKELLENOR [facility] DEPT 4 4 [facility] VISIT HIGH SEVERITY& THREAT FUN EMERGENCY 11262 SWINEY SWINEY 4 4 PAT [facility] T VISIT HIGH/URGE NT SEVERITY
--- OUTSIDE RECORDS SUMMARY | 2017-07-08 20:02 | External Medical Summary Rpt ---
Author Author , CESAR Organization CESAR Address Unknown Phone [email or web address] Care Team Providers Care Ledger Poster Name Role Phone ABSNER MILAGROS, ABSMATEUS Unavailable Unavailable MILAGROS [employer] Unavailable Unavailable INC, [employer] Unavailable Unavailable INC, [employer] ALLRAN JR, ALLRAN JR Unavailable Unavailable AYOOB AND, AYOOB AND Unavailable Unavailable BEINEKE, BEINEKE Unavailable Unavailable STACY, STACY Unavailable Unavailable STACY ALL, STACY ALL Unavailable Unavailable [facility] Unavailable Unavailable DEPARTMENT, [facility] Unavailable Unavailable DEPARTMENT, [facility] MÁRQUEZ JAM, MÁRQUEZ JAM Unavailable Unavailable CORTEZ DESHAUN, Unavailable Unavailable CORTEZ DESHAUN BUBBA ACCOUNT REPRESENTATIVE, BUBBA Unavailable Unavailable ACCOUNT REPRESENTATIVE BUBBA ACCOUNT REPRESENTATIVE, BUBBA Unavailable Unavailable ACCOUNT REPRESENTATIVE [facility], Unavailable Unavailable [facility] CASTILLO YASH, CASTILLO Unavailable Unavailable [facility] Unavailable Unavailable [facility] Unavailable [facility]available THE [facility], [facility] МАРИЯ GAR, МАРИЯ Unavailable Unavailable GAR NICO ALEJANDRA, Unavailable Unavailable NICO ALEJANDRA MICHELLE, MICHELLE Unavailable Unavailable MICHELLE PHI, Unavailable Unavailable MICHELLE PHI MICHELLE PHI, Unavailable Unavailable MICHELLE PHI MERRITT SHIRA, MERRITT SHIRA Unavailable Unavailable URDU DESHAUN, URDU Unavailable Unavailable DESHAUN FAUGHN LAO, FAUGHN Unavailable Unavailable LAO FEDDOCK CHRISTIANO, FEDDOCK Unavailable Unavailable CHRISTIANO FEEBACK, FEEBACK Unavailable Unavailable FRYMAN, FRYMAN Unavailable Unavailable YOKO, YOKO Unavailable Unavailable YOKO JAMES, YOKO Unavailable Unavailable JAMES [facility] Unavailable Unavailable INC, [facility] Unavailable Unavailable HOSPITAL P, [facility], Unavailable Unavailable [facility] STOKES MAR, STOKES Unavailable Unavailable MAR GRAMAJO, GRAMAJO Unavailable Unavailable GRAMAJO WANDA, GRAMAJO WANDA Unavailable Unavailable [facility], [facility] Un[facility], [facility] MERRITT JR, MERRITT JR Unavailable Unavailable MERRITT JR DWI, MERRITT Unavailable Unavailable JR DWI [facility]K [facility] Unavailable Unavailable COGOVT, MAREK FAYETTE URBAN COGOVT MICHAELS MAR, MICHAELS Unavailable Unavailable MAR JERAMIE JOSÉ, JERAMIE Unavailable Unavailable JOSÉ [facility] Unavailable Unavailable EMS, [facility] Unavailable [facility]available EMS, [facility] [place] Unavailable Unavailable [facility], [facility], [facility] RASLAU FLA, RASLAU Unavailable Unavailable FLA RENUSCH, RENUSCH Unavailable Unavailable RENUSCH DEBBY, RENUSCH Unavailable Unavailable DEBBY ROB LINDSAY, ROB LINDSAY Unavailable Unavailable SADEK MOH, SADEK MOH Unavailable Unavailable [facility], Unavailable Unavailable [facility] SOTINGEANU, Unavailable Unavailable SOTINGEANU BRITTANY, BRITTANY Unavailable Unavailable JUSTIN CRY, JUSTIN Unavailable Unavailable CRY SWINEY PAT, SWINEY Unavailable Unavailable PAT SWINEY PAT, SWINEY Unavailable Unavailable PAT [facility] Unavailable Unavailable HOSPITALS, [facility], Unavailable Unavailable [facility] VORKPOR NICOLÁS, VORKPOR Unavailable Unavailable NICOLÁS [facility] [place], [facility] [place] Unavailable Unavailable Purpose Continuity of Care Document - 02-14-2003 through 2016 Problems Code Diagnosis DOS Provider Status K811 CHRONIC 04-22-2017 [facility] CHOLECYSTIT PHYSICIANS IS GROUP K819 CHOLECYSTIT 04-22-2017 COMMUNITY IS ANESTH OF UNSPECIFIED THE BLUE K828 OTHER 04-22-2017 [facility] SPECIFIED PHYSICIANS DISEASES OF GROUP GALLBLADDER [id number] ENCOUNTER 04-20-2017 [facility] PREPROCEDUR INC AL LABORATORY EXAM G249 [...] PAIN MEM HOSP INC E663 OVERWEIGHT 02-13-2017 [facility] G629 POLYNEUROPA 02-13-2017 [facility] THY PHYSICIANS UNSPECIFIED GROUP M9983 OTHER 02-13-2017 [facility] BIOMECHANIC PHYSICIANS AL LESIONS GROUP OF LUMBAR REGION M546 PAIN IN 02-10-2017 [facility] SPINE PLLC R51 HEADACHE 02-05-2017 [facility] C539 MALIGNANT 01-22-2017 [facility] NEOPLASM OF MEDICAL CERVIX IMAGING ASS UTERI UNSPECIFIED K219 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-22-2017 [facility] WITHOUT ESOPHAGITIS M542 CERVICALGIA 01-22-2017 [facility] N938 OTHER SPEC 01-22-2017 [facility] ABNORMAL PHYSICIANS, UTERINE & PLLC VAGINAL BLEEDING N939 ABNORMAL 01-22-2017 [facility] UTERINE & MEDICAL VAGINAL IMAGING ASS BLEEDING UNSPECIFIED R55 SYNCOPE AND 01-22-2017 [facility] COLLAPSE [facility] ASS E8357UE UNSPECIFIED 01-22-2017 [place] INJURY OF MEDICAL HEAD IMAGING ASS INITIAL ENCOUNTER P689PLU UNSPECIFIED 01-22-2017 [facility] INJURY OF MEDICAL NECK IMAGING ASS INITIAL ENCOUNTER Z720 TOBACCO USE 01-22-2017 [facility] P Z8541 PERSONAL 01-22-2017 [facility] HISTORY PHYSICIANS, MALIGNANT PLLC NEOPLASM CERVIX UTERI I72496 PAIN IN 01-16-2017 [facility] RIGHT FOOT [facility]ICAL IM[facility]ING ASS N8021IZ CONTUSION 01-16-2017 [facility] OF RIGHT PHYSICIANS, FOOT PLLC INITIAL ENCOUNTER [id number] UNSPECIFIED 01-16-2017 [facility] [employer] RIGHT FOOT S INC INITIAL ENCOUNTER G4762 SLEEP 01-14-2017 [facility] RELATED LEG PHYSICIANS CRAMPS GROUP M5127 OTH 01-14-2017 [facility] INTERVERTEB MEDICAL RAL DISC IMAGING ASS DISPLACEMEN T LS REGION N342 OTHER 01-08-2017 [facility] URETHRITIS PHYSICIANS, [facility] R1030 LOWER 01-08-2017 [facility] ABDOMINAL [facility]ICAL PAIN IMAGING ASS UNSPECIFIED X34357 MIGRAINE 01-04-2017 [facility] W/O AURA PHYSICIANS, NOT INTRACT PLL W/O STAT MIGRAIN D128 BENIGN 12-30-2016 [facility] NEOPLASM OF PHYSICIANS RECTUM GROUP K6289 OTHER 12-30-2016 COMMUNITY SPECIFIED ANESTH OF DISEASES OF THE BLUE ANUS AND RECTUM K648 OTHER 12-30-2016 [facility] HEMORRHOIDS PHYSICIANS GROUP K649 UNSPECIFIED 12-30-2016 COMMUNITY ANESTH OF HEMORRHOIDS THE BLUE K629 DISEASE OF 12-18-2016 [facility] ANUS AND PHYSICIANS RECTUM GROUP UNSPECIFIED E039 HYPOTHYROID 11-05-2016 [facility] ISM PHYSICIANS UNSPECIFIED GROUP Z0000 ENCOUNTER 10-15-2016 [facility] GEN ADULT PHYSICIANS MED EXAM GROUP W/O ABNORMAL FIND [id number] STRAIN 10-13-2016 [facility] MUSCLE PHYSICIANS, FASCIA & PLLC TENDON LOW BACK INITIAL I30679M OTH [facility] 10-01-2016 [facility] COMP OTH ANESTH OF CARD VASC THE BLUE DEVC IMPL INIT ENC Z452 ENCOUNTER 10-01-2016 [facility] ADJUSTMENT& PHYSICIANS MGMT GROUP VASCULAR ACCESS DEVICE Z789 OTHER 09-29-2016 [facility] SPECIFIED PHYSICIANS HEALTH GROUP STATUS C569 MALIGNANT 09-05-2016 [place] NE[facility]M OF MEDICAL IMAGING ASS UNSPECIFIED OVARY C7989 SECONDARY 09-05-2016 [place] MALIGNANT MEM [facility]OS[facility] NEOPLASM INC OT SPECIFIED SITES L04629 MIGRAINE 08-20-2016 [facility] W/AURA NOT PHYSICIANS, INTRACT PLLC W/STATUS MIGRAINOSUS R05 COUGH 03-18-2016 [facility] P R0602 SHORTNESS 03-18-2016 [facility] MEDICAL IMAGING ASS S03683 MIGRAINE 02-04-2016 [facility] UNS NOT PHYSICIANS, INTRACT W/O PLLC STATUS MIGRAINOSUS R079 CHEST PAIN 12-01-2015 [place] UNSPECIFIED MEDICAL IMAGING ASS [id number] PAIN D/T 08-30-2015 [facility] IMPL & GRAFTS INITIAL Z12353F OTH SPEC 08-30-2015 [facility]PITALS IMPL GFT INIT ENC R1012 LEFT UPPER 06-30-2015 BUBBA ACCOUNT REPRESENTATIVE QUADRANT PAIN R109 UNSPECIFIED 06-30-2015 [place] ABDOMINAL MEDICAL PAIN IMAGING ASS R197 DIARRHEA 06-30-2015 BUBBA ACCOUNT REPRESENTATIVE UNSPECIFIED 1809 MALIGNANT 04-25-2015 [facility] NEOPLASM PHI CERVIX UTERI UNSPECIFIED SITE 57733 SOLITARY 04-11-2015 [place] PULMONARY MEDICAL NODULE IMAGING ASS V1041 PERSONAL 04-11-2015 [place] HISTORY MEDICAL MALIGNANT IMAGING ASS NEOPLASM CERVIX UTERI V711 OBSERVATION 04-11-2015 [place] FOR MEDICAL SUSPECTED IMAGING ASS MALIGNANT NEOPLASM 1749 MALIGNANT 02-28-2015 [facility] NEOPLASM OF [facility] P UNSPECIFIED SITE 4660 ACUTE 01-24-2015 [place] BRONCHITIS [facility] P 1991 OTHER 01-16-2015 [facility] MALIGNANT PHYSICIANS NEOPLASM OF GROUP UNSPECIFIED SITE V5881 FITTING AND 01-16-2015 [place] ADJUSTMENT MEDICAL OF IMAGING ASS VASCULAR CATHETER 2331 CARCINOMA 01-12-[address] [place] [address] P UTERI 97724 SHORTNESS 01-06-2015 [facility] MEDICAL IMAGING ASS 66840 NAUSEA WITH 01-06-2015 [place] VOMITING [facility] P E9331 ANTINEOPLAS 01-06-2015 [place] TIC-IMMUNOS [facility] UPP [facility] P ADVRSE EFF TX USE V5811 ENCOUNTER 01-02-2015 [facility] ANTINEOPLAS TIC CHEMOTHERAP Y 6268 OTH D/O 12-18-2014 [facility] N&OTH ABN BLEED FE GNT TRACT 5718 OTHER 12-01-2014 [place] [facility] NONAL[facility]OLI FOUNDATION C LIVER DISEASE 5939 UNSPECIFIED 12-01-2014 [place] [facility] DISORDER SERV OF [facility]OUND[facility] AND URETER 7856 ENLARGEMENT 12-01-2014 [facility] NODES V580 RADIOTHERAP 10-30-2014 [facility] 179 MALIGNANT 10-23-2014 [facility] NEOPLASM OF [facility] UTERUS PART UNSPECIFIED 1800 MALIGNANT 10-19-2014 [place] [facility] NE[facility]M OF SERV ENDOCERVIX FOUNDATION 1968 SEC&UNSPEC 10-18-2014 [facility] NEOPLASM NODES MULTIPLE SITES 2859 UNSPECIFIED 10-04-2014 [facility] 6238 OTHER 10-04-2014 [facility] NONINFLAMMA TORY DISORDER VAGINA 01265 ABDOMINAL 10-04-2014 [place] [facility] PAIN, SERV UNSPECIFIED FOUNDATION SITE 93095 ABDOMINAL 10-04-2014 [facility] PAIN OTHER HOSPITAL SPECIFIED SITE V153 PERS HX 10-04-2014 [facility] PRESENTING [facility] 7840 HEADACHE 09-20-2014 [facility] 1820 MALIGNANT 09-08-2014 [facility] UTERI EXCEPT ISTHMUS 6262 EXCESSIVE 09-08-2014 [facility] MENSTRUATIO N 1808 MALIGNANT 09-01-2014 [place] [facility] NEOP[facility] OTHER FOUNDATION SPECIFIED SITES CERVIX 99914 ABD/PELVIC 08-30-2014 [facility] MASS/LUMP OTH SPEC SITE 92246 NONGONOCOCC 08-15-2014 [facility] URETHRITIS DEPARTMENT DUE CHLAMYDTRAC HOMATIS 29122 MORBID 08-09-2014 [facility] ANESTHESIA PSC 6269 UNS D/O 08-07-2014 [facility] N&OTH ABN BLEED FE GNT TRACT V7241 08-07-2014 [place] [facility] OR TEST FOUNDATION NEGATIVE RESULT 4590 UNSPECIFIED 08-03-2014 [facility] EMS 6259 UNSPEC 08-03-2014 [facility] [place] [facility] W/FEMALE GENITAL ORGANS 1123 CANDIDIASIS 02-09-2014 [facility] PAT OF SKIN AND NAILS 64071 ANAL OR 02-09-2014 [facility] PAT RECTAL PAIN V3000 SINGLE 02-16-2003 [facility] PEDIA W/O Medications Na ND Rx Da Fi Fi Am Da Di Ph RX Ph St me C No te ll ll ou ys ag ar # ys at rm s nt no ma ic us Or Da si cy ia de te s n re d BU 69 09 10 60 30 00 HO Ac MA 09 -1 -0 .0 00 ME ti OP 70 1- 6- 00 06 TO ve IO 87 20 20 09 WN N 80 17 17 05 HC 3 76 PH L AR SR MA CY 15 0 OF MG CY TA NT BL HI ET AN A AC 00 09 10 60 30 00 HO Ac ET 09 -1 -0 .0 00 ME ti AM 30 - 6- 00 04 TO ve IN 15 20 20 02 WN OP 01 17 17 36 HE 0 46 PH N- AR CO MA D CY #3 OF TA BL CY ET NT HI AN A DI 68 09 10 60 30 00 HO Ac VA 38 -1 -0 .0 00 ME ti LP 20 1- 6- 00 06 TO ve RO 10 20 20 09 WN EX 60 17 [address] AR MA 12 CY 5 MG OF CA CY P NT SP HI RN AN K A GA 45 08 09 90 30 00 HO Ac BA 96 -1 -1 .0 00 ME ti PE 30 8- 5- 00 04 TO ve NT 55 20 20 02 WN IN 65 17 17 42 0 25 PH 30 AR 0 MA MG CY CA OF PS UL CY E NT HI AN A OM 68 08 09 60 30 00 HO Ac EP 46 -2 -1 .0 00 ME ti RA 20 1- 5- 00 06 TO ve ZO 39 20 20 08 WN LE 61 17 [address] AR MA 20 CY MG OF CA CY PS NT UL HI E AN A LE 00 08 09 30 30 00 HO Ac VO 52 -2 -1 .0 00 ME ti TH 71 1- 5- 00 06 TO ve YR 34 20 20 08 WN OX 10 17 17 91 IN 1 65 PH E AR 25 MA CY MC G OF TA BL CY ET NT HI AN A CL 00 08 09 60 30 00 HO Ac ON 22 -2 -1 .0 00 ME ti AZ 83 1- 5- 00 04 TO ve EP 00 20 20 02 WN AM 35 17 17 32 0 37 PH 0. AR 5 MA MG CY TA OF BL ET CY NT HI AN A AC 00 08 09 60 30 00 HO Ac ET 09 -1 -0 .0 00 ME ti AM 30 1- 8- 00 04 TO ve IN 15 20 20 02 WN OP 01 17 17 36 HE 0 46 PH N- AR CO MA D CY #3 OF TA BL CY ET NT HI AN A BU 69 08 09 60 30 00 HO Ac MA 09 -1 -0 .0 00 ME ti OP 70 1- 8- 00 06 TO ve IO 87 20 20 09 WN N 80 17 17 05 HC 3 76 PH L AR SR MA CY 15 0 OF MG CY TA NT BL HI ET AN A MA 68 07 08 14 4 00 HO Ac OM 00 -2 -1 .0 00 ME ti ET 10 0- 8- 00 06 TO ve ARROYO 16 20 20 09 WN ZI 20 17 17 10 NE 8 43 PH AR 25 MA CY MG OF TA BL CY ET NT HI AN A OX 00 07 08 6. 2 00 RI Ac YC 05 -2 -1 00 00 TE ti OD 40 2- 8- 0 01 ve ON 55 20 20 19 AI E- 12 17 17 27 D AC 5 96 PH ET AR AM MA IN CY OP HE #3 N 93 5- 8 32 5 OM 68 07 08 60 30 00 HO Ac EP 46 -2 -1 .0 00 ME ti RA 20 5- 8- 00 06 TO ve ZO 39 20 20 08 WN LE 61 17 [address] AR MA 20 CY MG OF CA CY PS NT UL HI E AN A LE 00 07 08 30 [...] BL ET CY NT HI AN A BU 69 07 08 60 30 00 HO Ac MA 09 -1 -0 .0 00 ME ti OP 70 2- 4- 00 06 TO ve IO 87 20 20 09 WN N 80 17 17 05 HC 3 76 PH L AR SR MA CY 15 0 OF MG CY TA NT BL HI ET AN A AC 00 07 08 60 30 00 HO Ac ET 09 -1 -0 .0 00 ME ti AM 30 2- 4- 00 04 TO ve IN 15 20 20 02 WN OP 01 17 17 36 HE 0 46 PH N- AR CO MA D CY #3 OF TA BL CY ET NT HI AN A OM 68 06 07 60 30 00 HO Ac EP 46 -2 -2 .0 00 ME ti RA 20 8- 1- 00 06 TO ve ZO 39 20 20 08 WN LE 61 17 [address] AR MA 20 CY MG OF CA CY PS NT UL HI E AN A AC 00 06 07 40 [...] BL ET CY NT HI AN A BU 68 06 07 60 30 00 HO Ac MA 00 -1 -1 .0 00 ME ti OP 10 5- 4- 00 06 TO ve IO 30 20 20 08 WN N 80 17 17 90 HC 0 23 PH L AR 75 MA CY MG OF TA BL CY ET NT HI AN A LE 00 06 [...] E NT HI AN A OM 68 05 06 60 30 00 HO Ac EP 46 -2 -2 .0 00 ME ti RA 20 5- 3- 00 06 TO ve ZO 39 20 20 08 WN LE 61 17 [address] AR MA 20 CY MG OF CA CY PS NT UL HI E AN A TO 68 05 06 30 30 00 HO Ac PI 46 -3 -2 .0 00 ME ti RA 20 1- 3- 00 06 TO ve MA 10 20 20 08 WN TE 81 17 17 80 0 55 PH 25 AR MA MG CY TA OF BL ET CY NT HI AN A BU 00 05 06 40 14 00 HO Ac TA 59 -3 -2 .0 00 ME ti LB 13 1- 3- 00 04 TO ve -A 36 20 20 02 WN CE 90 17 17 30 TA 5 04 PH NJ AR N- MA CA CY FF OF 50 -3 CY 25 NT -4 HI 0 AN A GA 45 05 06 90 30 00 HO Ac BA 96 -1 -1 .0 00 ME ti PE 30 9- 6- 00 06 TO ve NT 55 20 20 08 WN IN 65 17 17 73 0 84 PH 30 AR 0 MA MG CY CA OF PS UL CY E NT HI AN A CI 65 05 06 30 30 00 HO Ac TA 16 -1 -1 .0 00 ME ti LO 20 9- 6- 00 06 TO ve MA 05 20 20 08 WN AM 35 17 17 73 0 85 PH HB AR R MA 20 CY MG OF TA CY BL NT ET HI AN A HY 00 05 06 [address] 40 -1 -0 .0 00 TE ti OC 60 6- 9- 00 01 ve OD 12 20 20 18 AI ON 30 17 17 42 D -A 1 40 PH CE AR TA MA NJ CY NO PH #3 EN 93 8 5- 32 5 NA 68 05 06 14 7 00 HO Ac MA 46 -1 -0 .0 00 ME ti OX 20 7- 9- 00 06 TO ve EN 19 20 20 08 WN 00 17 17 71 50 5 75 PH 0 AR MG MA CY TA BL OF ET CY NT HI AN A ME 31 05 06 10 3 00 HO Ac TH 72 -1 -0 .0 00 ME ti OC 20 7- 9- 00 06 TO ve AR 53 20 20 08 WN BA 40 17 17 71 MO 5 76 PH L AR 75 MA 0 CY MG OF TA BL CY ET NT HI AN A HY 00 04 05 [address] 60 -2 -2 .0 00 ME ti OC 33 7- 6- 00 02 TO ve OD 89 20 20 01 WN ON 03 17 17 34 -A 2 67 PH CE AR TA MA NJ CY NO PH OF EN CY 5- [...] UL HI E AN A HY 00 04 05 [address] 60 -1 -1 .0 00 ME ti OC 33 7- 2- 00 02 TO ve OD 89 20 20 01 WN ON 03 17 17 34 -A 2 26 PH CE AR TA MA NJ CY NO PH OF EN CY 5- NT 32 HI 5 AN A CI 16 04 05 14 7 00 HO Ac MA 57 -1 -1 .0 00 ME ti OF 10 4- 2- 00 06 TO ve LO 41 20 20 08 WN XA 25 17 17 50 CI 0 59 PH N AR HC MA L CY 50 0 OF MG CY TA NT B HI AN A PH 51 04 05 12 4 00 HO Ac EN 29 -1 -1 .0 00 ME ti AZ 30 4- 2- 00 06 TO ve OP 80 20 20 08 WN YR 20 17 17 50 ID 1 60 PH IN AR E MA 20 CY 0 MG OF TA CY B NT HI AN A TR 59 04 05 1. 1 00 HO Ac IA 76 -1 -1 00 00 ME ti ZO 23 4- 2- 0 04 TO ve LA 71 20 20 02 WN M 80 17 17 22 0. 4 98 PH 25 AR MA MG CY TA OF BL ET CY NT HI AN A GA 45 04 05 14 14 00 HO Ac BA 96 -1 -1 .0 00 ME ti PE 30 9- 2- 00 06 TO ve NT 55 20 20 08 WN IN 55 17 17 54 0 09 PH 10 AR 0 MA MG CY CA OF PS UL CY E NT HI AN A PE 10 03 04 40 1 00 HO Ac G- 57 -2 -2 00 00 ME ti 33 20 3- 1- .0 06 TO ve 50 10 20 20 00 08 WN 00 17 17 30 AN 1 39 PH D AR EL MA EC CY TR OL OF YT ES CY NT SO HI LN AN A HY 00 03 04 [address] 60 -2 -2 .0 00 ME ti OC 33 3- 1- 00 02 TO ve OD 89 20 20 01 WN ON 03 17 17 32 -A 2 24 PH CE AR TA MA NJ CY NO PH OF EN CY 5- NT 32 HI 5 AN A OM 62 03 04 60 30 00 HO Ac EP 17 -2 -2 .0 00 ME ti RA 50 3- 1- 00 06 TO ve ZO 11 20 20 08 WN LE 84 17 [address] MATT AVELAR 20 CY MG OF CA CY PS NT UL HI E AN A OM 68 02 03 60 30 00 HO Ac EP 46 -2 -1 .0 00 ME ti RA 20 0- 7- 00 06 TO ve ZO 39 20 20 08 WN LE 61 17 17 [address] MATT AVELAR 20 CY MG OF CA CY PS NT UL HI E AN A HY 00 02 03 [address] 60 -0 -0 .0 00 ME ti OC 33 8- 3- 00 02 TO ve OD 89 20 20 01 WN ON 03 17 17 28 -A 2 34 PH CE AR TA MA NJ CY NO PH OF EN CY 5- NT 32 HI 5 AN A CY 00 01 02 15 5 00 HO Ac CL 60 -1 -1 .0 00 ME ti OB 33 7- 0- 00 06 TO ve EN 07 20 20 07 WN ZA 93 17 17 96 MA 2 42 PH IN AR E MA 10 CY MG OF TA CY BL NT ET HI AN A MA 59 01 02 10 5 00 HO Ac ED 74 -1 -1 .0 00 ME ti NI 60 7- 0- 00 06 TO ve SO 17 20 20 07 WN NE 50 17 17 96 9 43 PH 20 AR MA MG CY TA OF BL ET CY NT HI AN A MA 68 01 02 12 30 00 HO Ac OM 38 -1 -1 0. 00 ME ti ET 20 8- 0- 00 06 TO ve ARROYO 04 20 20 0 07 WN ZI 00 17 17 97 NE 1 55 PH AR 12 MA .5 CY MG OF TA CY BL NT ET HI AN A OM 68 01 02 60 30 00 HO Ac EP 46 -1 -1 .0 00 ME ti RA 20 8- 0- 00 06 TO ve ZO 39 20 20 07 WN LE 61 17 [address] MATT AVELAR 20 CY MG OF CA CY PS NT UL HI E AN A HY 13 01 01 [address] 10 -0 -2 .0 00 IN ti OC 70 4- 7- 00 00 IC ve OD 01 20 20 41 ON 90 17 17 81 PH -A 5 73 AR CE MA TA CY NJ NO PH EN 5- 32 5 OM 68 12 01 30 30 00 HO Ac EP 46 -2 -1 .0 00 ME ti RA 20 1- 3- 00 06 TO ve ZO 39 20 20 07 WN LE 71 16 [address] GUTIERREZ MA 40 CY MG OF CA CY PS NT UL HI E AN A Procedures Procedure DOS Code Location Performer Comment URINE [id number] SHARLA MAGDALENO 7 [facility] TEST INC INC VISUAL COLOR CMPRSN METHS ANES 22779 COMMUNITY FEEBACK INTRAPERI 7 ANESTH TONEAL OF THE UPPER BLUE ABDOMEN W/LAPS NOS LAPAROSCO 47597 SHARLA MAGDALENO PY SURG 7 [facility] CHOLECYST INC INC ECTOMY BLOOD 17716 SHARLA MAGDALENO COUNT 7 [facility] COMPLETE INC INC AUTO&AUTO DIFRNTL WBC COMPREHEN 80445 SHARLA MAGDALENO SIVE 7 [facility] [address] SHARLA MAGDALENO AMYLASE 7 [facility] INC INC COLLECTIO 79639 SHARLA MAGDALENO N VENOUS 7 [facility] [place] [address] SHARLA MAGDALENO LIPASE 7 [facility] [place] [place] [address] SHARLA MAGDALENO INFUSION 7 [facility] THERAPY/P INC INC ROPHYLAXI S /DX 1ST TO 1 HR THERAPEUT 44790 SHARLA MAGDALENO IC 7 [facility] INJECTION INC INC IV PUSH EACH NEW DRUG URNLS DIP 88197 SHARLA MAGDALENO 7 [facility] STICK/TAB INC INC LET REAGENT AUTO MICROSCOP Y BLOOD 55374 SHARLA MAGDALENO COUNT 7 [facility] COMPLETE INC INC AUTO&[place] [address] SHARLA MAGDALENO LIPASE 7 [facility] [place] [address] SHARLA MAGDALENO ABDOMEN & 7 [facility] PELVIS INC INC W/[place] [address] SHARLA MAGDALENO AMYLASE 7 [facility]OS[facility] INC INC COMPREHEN 53137 SHARLA LINON SIVE 7 [facility] HOSP METABOLIC INC INC PANEL URINE 76486 SHARLA MAGDALENO 7 [facility] TEST INC INC VISUAL COLOR CMPRSN METHS HEPATOBIL 04217 MICHELLE BEINEKE SYST 7 MEDICAL IMAG INC IMAGING GB ASS W/PHARMA INTERVENJ TECHNETIU A9537 SHARLA MAGDALENO M TC-99M 7 [facility]OS[facility] MEBROFENI INC INC N DX [place] [address] [place] [address] SHARLA MAGDALENO ABDOMINAL 7 [facility] REAL INC [place] TIME W/[place] [address] SHARLA MAGDALENO THYROXINE 7 [facility] [place] [address] SHARLA MAGDALENO THYROID 7 [facility] HOS[facility] STIMULATI INC INC NG HORMONE TSH COLLECTIO 87573 SHARLA MAGDLAENO N VENOUS 7 [facility]OS[facility] BLOOD INC INC VENIPUNCT URE THERAPEUT 05556 SHARLA MAGDALENO IC PX 1/> 7 [facility] AREAS INC INC EACH 15 MIN EXERCISES APPLICATI 87827 SHARLA MAGDALENO ON 7 [facility]OSP MODALITY INC INC 1/> AREAS HOT/COLD PACKS APPL 92274 SHARLA MAGDALENO MODALITY 7 [facility] HOSP 1/> AREAS INC INC ULTRASOUN D EA 15 MIN APPL 38110 SHARLA MAGDALENO MODALITY 7 [facility]OS[facility] 1/> AREAS INC INC TRACTION MECHANICA L APPL 92447 SHARLA MAGDALENO MODALITY 7 [facility]/> AREAS INC INC ELEC STIMJ UNATTENDE D APPL 35488 SHARLA MAGDALENO MODALITY 7 [facility] 1/> AREAS INC INC TRACTION MECHANICA L APPL 60088 SHARLA MAGDALENO MODALITY 7 [facility] 1/> AREAS INC INC ELEC STIMJ UNATTENDE D APPLICATI 60130 SHARLA [facility]DALENO ON 7 [facility] INC INC 1/> AREAS HOT/COLD PACKS THERAPEUT 36845 SHARLA MAGDALENO IC PX 1/> 7 [facility] AREAS INC INC EACH 15 MIN EXERCISES PHYSICAL 33878 SHARLA MAGDALENO THERAPY 7 [facility] EVALUATIO INC INC N [place] COM[place] [address] [place] [address] MICHELLE STACY HEAD/BRAI 7 MEDICAL N W/O IMAGING CONTRAST ASS MATERIAL FINAL G9638 MICHELLE STACY REPORTS 7 MEDICAL W/O DOC IMAGING 1/MORE ASS DOSE REDUCTION TECH FINAL G9638 MICHELLE STACY REPORTS 7 MEDICAL W/O DOC IMAGING 1/MORE ASS DOSE REDUCTION TECH ECG 71761 SHARLA MAGDALENO ROUTINE 7 [facility] ECG INC INC W/LEAST 12 LDS TRCG ONLY W/O I&R CREATINE 41942 SHARLA MAGDALENO KINASE 7 [facility] [place] [place] [address] MICHELLE MARTINEZ TRANSVAGI 7 MEDICAL MEDICAL [place] [address] MICHELLE STACY HEAD/BRAI 7 MEDICAL N W/[place] [address] MICHELLE STACY CERVICAL 7 MEDICAL SPINE W/O IMAGING CONTRAST ASS MATERIAL CREATINE 96250 SHARLA MAGDALENO KINASE MB 7 [facility] FRACTION INC INC ONLY COMPREHEN 27555 SHARLA MAGDALENO SIVE 7 [facility] METABOLIC INC INC PANEL BLOOD 38789 SHARLA MAGDALENO COUNT 7 [facility] COMPLETE INC INC AUTO&AUTO DIFRNTL WBC ECG 24514 COLIN GRAMAJO ROUTINE 7 PHYSICIAN ECG S, PLLC W/LEAST 12 LDS [place] [address] SHARLA MAGDALENO TROPONIN 7 [facility]P QUANTITAT INC INC VINCENT FINAL RPT G95[address]/MRI 7 MEDICAL CHEST/NCK IMAGING /U/S NO ASS THR NOD<1.0 CM CRTCHS E0114 ADVANCED ADVANCED UNDARM 7 TECHNOLOG TECHNOLOG OTH THAN IES INC IES INC WOOD PAIR PAD TIP&HNDGR IP RADEX 00776 MICHELLE STACY FOOT 7 MEDICAL COMPLETE IMAGING MINIMUM 3 ASS VIEWS MRI 65071 MICHELLE STACY SPINAL 7 MEDICAL CANAL IMAGING LUMBAR ASS W/O CONTRAST MATERIAL COMPREHEN 46237 [facility] S[facility] 7 [facility] [place] [address] SHARLA MAGDALENO MAGNESIUM 7 [facility] INC INC 3D 36507 MICHELLE STACY RENDERING 7 MEDICAL W/INTERP IMAGING & ASS POSTPROCE SS SUPERVISI ON COLLECTIO 19189 [facility] FRYMAN N VENOUS 7 PHYSICIAN BLOOD S GROUP VENIPUNCT URE CULTURE 42397 SHARLA MAGDALENO BACTERIAL 7 [facility] INC [place] [address] MICHELLE STACY ABDOMEN & 7 MEDICAL PELVIS IMAGING W/O ASS CONTRAST MATERIAL FINAL G9638 MICHELLE STACY REPORTS 7 MEDICAL W/O DOC IMAGING 1/MORE ASS DOSE REDUCTION TECH URNLS DIP 68215 SH[facility]LA MAGDALENO 7 [facility] STICK/TAB INC INC LET REAGENT AUTO MICROSCOP Y FINAL G9551 MICHELLE STACY REPR ABD 7 MEDICAL IMAG STS IMAGING W/O ASS INCIDNT FND LES NTD: THERAPEUT 36451 SHARLA MAGDALENO IC 7 [facility] INJECTION INC INC IV PUSH EACH NEW DRUG THER 12701 SHARLA MAGDALENO PROPH/DX 7 [facility] NJX IV INC INC PUSH SINGLE/1S T SBST/DRUG THER 08738 SHARLA MAGDALENO PROPH/DX 7 [facility] NJX EA INC INC SEQL IV PUSH SBST/DRUG FAC URINE 77779 SHARLA MAGDALENO 7 [facility] TEST INC INC VISUAL COLOR CMPRSN METHS ANES 14849 [facility] LOWER 7 ANESTH INTESTINE OF THE BLUE ENDOSCOPY DISTAL DUODENUM COLONOSCO 75556 SHARLA MAGDALENO PY FLX DX 7 [facility] W/COLLJ INC INC SPEC WHEN PFRMD THERAPEUT 37132 SHARLA MAGDALENO IC PX 1/> 7 [facility] AREAS INC INC EACH 15 MIN EXERCISES APPL 81830 SHARLA MAGDALENO MODALITY 7 [facility] 1/> AREAS INC INC ELEC STIMJ UNATTENDE D APPLICATI 65047 SHARLA MAGDALENO ON 7 [facility] MODALITY INC INC 1/> AREAS HOT/COLD PACKS PHYSICAL 29953 SHARLA MAGDALENO THERAPY 7 [facility] EVALUATIO INC INC N MOD COMPLEX 30 MINS BLOOD 05489 SHARLA MAGDALENO COUNT 7 [facility] COMPLETE INC INC AUTO&AUTO DIFRNTL WBC HEPATITIS 93150 SHARLA MAGDALENO B CORE 7 [facility] [place] [address] SHARLA MAGDALENO HEPATITIS 7 [facility] B INC INC SURFACE ANTIGEN HEPATITIS 76102 SHARLA MAGDALENO C 7 [facility] ANTIBODY INC INC INF AGT G0432 SHARLA MAGDALENO AB DETECT 7 [facility] EIA TECH INC INC HIV-1&/HI V-2 SCR HEPATITIS 48274 SHARLA MAGDALENO A 7 [facility] ANTIBODY INC INC HAAB COLLECTIO 78190 SHARLA MAGDALENO N VENOUS 7 [facility] BLOOD INC INC VENIPUNCT URE COMPREHEN 00127 SHARLA MAGDALENO SIVE 7 [facility] [address] SHARLA MAGDALENO FREE 7 [facility] [place] [address] SHARLA MAGDALENO THYROID 7 [facility] STIMULATI INC INC NG HORMONE TSH RADEX 35435 [place] ST[place] SPINE 7 MEDICAL LUMBOSACR IMAGING AL 2/3 ASS VIEWS RADEX 66030 SHARLA MAGDALENO SPINE 7 [facility] LUMBOSACR INC INC AL MINIMUM 4 VIEWS ANES 79894 [facility] INTEG 7 ANESTH EXTREMITI OF THE ANT BLUE TRUNK & PERINEUM NOS RMVL JAYJAY 90632 [facility] LENYRAN JR CTR VAD 7 PHYSICIAN W/SUBQ S GROUP PORT/PHOTOGRAPHY COLORIST CTR/PRPH INSJ GONADOTRO 87494 SHARLA MAGDALENO PIN 7 [facility] CHORIONIC INC INC QUALITATI VE BLOOD 70325 SHARLA MAGDALENO COUNT 7 [facility] COMPLETE INC INC AUTO&AUTO DIFRNTL WBC BASIC 60906 SHARLA MAGDALENO METABOLIC 7 [facility] PANEL INC INC CALCIUM TOTAL COLLECTIO 15450 SHARLA MAGDALENO N VENOUS 7 [facility] [place] [address] [facility] ST[facility] ABDOMEN & 6 MEDICAL PELVIS IMAGING W/CONTRAS ASS T MATERIAL RADIOLOGI 95011 SHARLA MAGDALENO C EXAM 6 [facility] CHEST 2 INC INC VIEWS FRONTAL&L ATERAL BLOOD 82371 SHARLA MAGDALENO COUNT 6 [facility] COMPLETE INC INC AUTO&[place] [address] SHARLA MAGDALENO TROPONIN 6 [facility] QUANTITAT INC INC VINCENT ECG 35954 SHARLA BANG JR ROUTINE 6 [facility] W/LEAST P 12 LDS I&R ONLY RHYTHM 13911 SHARLA MAGDALENO ECG 1-3 6 [facility] LEADS INC INC TRACING ONLY W/O I&R ECG 71405 SHARLA MAGDALENO ROUTINE 6 [facility] ECG INC INC W/LEAST 12 LDS TRCG ONLY W/O I&R THER 62491 SHARLA MAGDALENO PROPH/DX 6 [facility] NJX IV INC INC PUSH SINGLE/1S T SBST/DRUG CREATINE 97337 SHARLA MAGDALENO KINASE 6 [facility] TOTAL INC INC COMPREHEN 78304 SHARLA MAGDALENO SIVE 6 [facility]OSP METABOLIC INC INC PANEL CREATINE 89990 SHARLA MAGDALENO KINASE MB 6 [facility] [place] [address] [place] NICO HEAD/BRAI 6 MEDICAL ALEJANDRA N W/O IMAGING CONTRAST ASS MATERIAL CT THORAX 16675 [place] STACY ALL 6 MEDICAL W/CONTRAS IMAGING T ASS MATERIAL RADIOLOGI 56145 [place] REGIS ALL C EXAM 6 MEDICAL CHEST 2 IMAGING VIEWS ASS FRONTAL&L ATERAL FLUORODEO A9552 [facility] XYGLUCOSE 5 Y Y F-18 [facility] DX UP TO 45 MCI PET 61714 [place] МАРИЯ IMAGING [address] SERV ATTENUATI FOUNDATIO ON SKULL N BASE MID-THIGH FLUORO 30467 [facility] CENTRAL 5 [facility] VENOUS E E ACCESS [facility] DEV PLACEMENT COMPREHEN 18618 [place] [facility] SIVE 5 [facility] METABOLIC E E PANEL [facility]OSPITALS HOSPITALS US VASC 29253 [facility] ACCESS 5 [facility] HEALTHCAR SITS VSL E E PATENCY [facility] NDL ENTRY PROTHROMB 00876 [facility] IN TIME 5 [facility]ALTHCAR HEALTHCAR E E [facility]OSPITALS HOSPITALS INJECTION J1644 [facility] HEPARIN 5 [facility]ALTH[facility] HEALTHCAR SODIUM E E PER 1000 [facility]IT[facility] UNITS INSJ 91855 [place] TUNNELED 5 [facility]ALTH[facility] HEALTHCAR CTR VAD E E W/SUBQ [facility] PORT AGE 5 YR/> INJECTION J1200 [facility] 5 HEALTHCAR HEALTHCAR DIPHENHYD E E RAMINE [facility] HCL UP TO 50 MG INJECTION J3010 [facility] FENTANYL 5 [facility]ALTHCAR HEALTHCAR CITRATE E E 0.1 MG [facility] INFUSION J7030 [place] NORMAL 5 [facility]ALTHCAR HEALTHCAR SALINE E E SOLUTION [facility] 1000 CC GUIDE C1769 [place] WIRE 5 HEALTHCAR HEALTHCAR E E HOSPITALS HOSPITALS PORT C1788 [place] INDWELLIN 5 HEALTHCAR HEALTHCAR G E E [facility] GLUCOSE 77152 [place] QUANTITAT 5 [facility]ALTHCAR HEALTHCAR VINCENT BLOOD E E XCPT [facility] REAGENT STRIP BLOOD 18064 [place] COUNT 5 [facility]ALTHCAR HEALTHCAR COMPLETE E E AUTOMATED [facility] RMVL JAYJAY 87125 [place] CTR VAD 5 HEALTHCAR HEALTHCAR W/SUBQ E E PORT/PHOTOGRAPHY COLORIST [facility] CTR/PRPH INSJ INJECTION J0690 [facility] 5 HEALTHCAR HEALTHCAR CEFAZOLIN E E SODIUM [facility] 500 MG INJECTION J1642 [facility] HEPARIN 5 [facility]ALTHCAR HEALTHCAR SODIUM E E PER 10 [facility] UNITS INJECTION J2250 [place] 5 HEALTHCAR HEALTHCAR MIDAZOLAM E E HCL PER [facility] [place] [address] [place] [address] [place] AYOOB AND ABDOMEN & 5 MEDICAL PELVIS SERV W/CONTRAS FOUNDATIO T N MATERIAL [facility] THORAX 65924 [place] AYOOB AND 5 MEDICAL W/CONTRAS SERV T FOUNDATIO MATERIAL N LOCM Q9967 [facility] 300-399 5 Y Y MG/ML HOSPITAL HOSPITAL [place] [address] MICHELLE STACY ALL ABDOMEN & 5 MEDICAL PELVIS IMAGING W/O ASS CONTRAST MATERIAL CULTURE 77705 SHARLA SHARLA BACTERIAL 5 [facility] INC INC QUANTTATI VE COLONY COUNT URINE LOCM Q9967 SHARLA MAGDALENO 300-399 5 [facility] MG/ML INC INC IODINE CONCENTRA TION PER ML CT THORAX 10862 SHARLA MAGDALENO 5 [facility] W/[place] [address] SHARLA MAGDALENO ABDOMEN & 5 [facility] PELVIS INC INC W/CONTRAS T MATERIAL INJECTION J1642 SHARLA MAGDALENO HEPARIN 5 [facility] SODIUM INC INC PER 10 UNITS URNLS DIP 44682 SHARLA MAGDALENO 5 [facility] STICK/TAB INC INC LET REAGENT AUTO MICROSCOP Y INJECTION J1642 SHARLA MAGDALENO HEPARIN 5 [facility] SODIUM INC INC PER 10 UNITS BLOOD 82549 SHARLA MAGDALENO COUNT 5 [facility] COMPLETE INC INC AUTO&AUTO DIFRNTL WBC COMPREHEN 84214 SHARLA MAGDALENO SIVE 5 [facility] METABOLIC INC INC PANEL GRANISETR Q0166 SHARLA MAGDALENO ON HCL 1 5 [facility] MG ORL INC INC NOT >48 HR DOSE REGIMEN CHEMOTX 80066 SHARLA MAGDALENO ADMN IV 5 [facility] NFS TQ UP INC INC 1 HR 1/ SBST/DRUG CHEMOTX 30651 SHARLA MAGDALENO ADMN IV 5 [facility] NFS TQ UP INC INC 1 HR 1/1ST SBST/DRUG INJECTION J9045 SHARLA MAGDALENO 5 [facility] CARBOPLAT INC INC IN 50 MG CHEMOTX 04369 SHARLA MAGDALENO ADMN IV 5 [facility] NFS TQ EA INC INC SEQL NFS TO 1 HR GRANISETR Q0166 SHARLA MAGDALENO ON HCL 1 5 [facility] MG ORL INC INC NOT >48 HR DOSE REGIMEN INJECTION J9267 SHARLAYENY MAGDALENO 5 [facility] PACLITAXE INC INC L 1 MG INJECTION J1642 SHARLA MAGDALENO HEPARIN 5 [facility] SODIUM INC INC PER 10 UNITS CHEMOTHER 15171 SHARLA MAGDALENO APY ADMN 5 [facility] IV INC INC INFUSION TQ EA HR BLOOD 92300 SHARLA MAGDALENO COUNT 5 [facility] COMPLETE INC INC AUTO&AUTO DIFRNTL WBC COMPREHEN 50784 SHARLA LINON SIVE 5 [facility] METABOLIC INC INC PANEL COLLECTIO 45284 SHARLA MAGDALENO N VENOUS 5 [facility] BLOOD INC INC VENIPUNCT URE INSJ 10809 SHARLA MAGDALENO TUNNELED 5 [facility]OSP CTR VAD INC INC W/SUBQ PORT AGE 5 YR/> INJECTION J2405 SHARLA MAGDALENO 5 [facility] ONDANSETR INC INC ON HCL PER 1 MG PORT C1788 SHARLA MAGDALENO INDWELLIN 5 [facility] G INC INC ANESTHESI 44290 [facility] SHIRA A ACCESS 5 ANESTH CENTRAL OF THE VENOUS BLUE CIRCULATI ON RADIOLOGI 13563 [place] NICO C 5 MEDICAL ALEJANDRA EXAMINATI IMAGING ON CHEST ASS SINGLE VIEW FRONTAL FLUORO 06585 SHARLA MAGDALENO CENTRAL 5 [facility] VENOUS INC INC ACCESS DEV PLACEMENT INJECTION J1642 SHARLA AMGDALENO HEPARIN 5 [facility] SODIUM INC INC PER 10 UNITS INJECTION J0131 SHARLA MAGDALENO 5 [facility] ACETAMINO INC INC PHEN 10 MG ECG 14458 SHARLA BANG JR ROUTINE 5 [facility] W/LEAST P 12 LDS I&R ONLY BLOOD 10469 SHARLA MAGDALENO COUNT 5 [facility] COMPLETE INC INC AUTO&AUTO DIFRNTL WBC GONADOTRO 85616 SHARLA MAGDALENO PIN 5 [facility] CHORIONIC INC INC QUALITATI VE BASIC 61069 SHARLA MAGDALENO METABOLIC 5 [facility] PANEL INC INC CALCIUM TOTAL COLLECTIO 48055 SHARLA MAGDALENO N VENOUS 5 [facility] BLOOD INC INC VENIPUNCT URE ECG 42404 SHARLA MAGDALENO ROUTINE 5 [facility] ECG INC INC W/LEAST 12 LDS TRCG ONLY W/O I&R HOSPITAL G0463 SHARLA MAGDALENO OUTPATIEN 5 [facility] T CLIN INC INC VISIT ASSESS & MGMT PT COMPREHEN 76022 SHARLA SHARLA SIVE 5 [facility] METABOLIC INC INC PANEL BLOOD 06685 SHARLA MAGDALENO COUNT 5 [facility] COMPLETE INC INC AUTO&AUTO DIFRNTL WBC ECG 08746 SHARLA BANG JR ROUTINE 5 [facility] W/LEAST P 12 LDS I&R ONLY THERAPEUT 26005 SHARLA MAGDALENO IC 5 [facility] INJECTION INC INC IV PUSH EACH NEW DRUG RADIOLOGI 35052 [place] [address] MEDICAL ALEJANDRA EXAMINATI IMAGING ON CHEST ASS SINGLE VIEW FRONTAL FLUORODEO A9552 [facility] XYGLUCOSE 5 Y Y F-18 FDG [facility] DX UP TO 45 MCI PET 05233 [facility] 5 Y Y [address] [facility] ATTENUATI ON SKULL BASE MID-THIGH COMPREHEN 21904 SHARLA MAGDALENO SIVE 5 [facility] METABOLIC INC INC PANEL INJECTION J1642 SHARLA MAGDALENO HEPARIN 5 [facility] SODIUM INC INC PER 10 UNITS BLOOD 48848 SHARLA MAGDALENO COUNT 5 [facility] COMPLETE INC INC AUTO&AUTO DIFRNTL WBC INJECTION J9267 [facility] 5 Y Y PACLITAXE [facility] L 1 MG INFUSION J7040 [facility] NORMAL 5 Y Y SALINE [facility] SOLUTION STERILE INJECTION J2060 [facility] 5 Y Y LORAZEPAM [facility] 2 MG THERAPEUT 97903 [facility] 5 Y Y INJECTION [facility] IV PUSH EACH NEW DRUG CHEMOTHER 84068 [facility] APY ADMN 5 Y Y IV HOSPITAL HOSPITAL INFUSION TQ EA HR ONDANSETR Q0162 [facility] ON 1 MG 5 Y Y ORL NOT [facility] EXCEED 48 HR DOSE REG INJ J1720 [facility] HYDROCORT 5 Y [facility] SOD[facility] SUCC[facility] TO 100 MG INJECTION J9045 [facility] 5 Y Y [facility] 50 MG DEXAMETHA J8540 [facility] SON ORAL 5 Y Y 0.25 MG [facility] CHEMOTX 63503 [facility] ADMN IV 5 Y Y NFS TQ [facility] 1 HR SBST/DRUG INJECTION J1200 [facility] 5 Y Y [facility] RAMINE HCL UP TO 50 MG INFUSION J7050 [facility] NORMAL 5 Y Y SALINE [facility] SOLUTION 250 CC CHEMOTX 84791 [facility] ADMN IV 5 Y Y NFS TQ [facility] SEQL NFS TO 1 HR COMPREHEN 44525 SHARLA MAGDALENO SIVE 5 [facility] METABOLIC INC INC PANEL INJECTION J1642 SHARLA MAGDALENO HEPARIN 5 [facility] SODIUM INC INC PER 10 UNITS BLOOD 26091 SHARLA MAGDALENO COUNT 5 [facility] COMPLETE INC INC AUTO&AUTO DIFRNTL WBC IRRIGAJ 92115 SHARLA MAGDALENO IMPLNTD 5 [facility] VENOUS INC INC ACCESS DRUG DELIVERY SYST INJECTION J1642 SHARLA MAGDALENO HEPARIN 5 [facility] SODIUM INC INC PER 10 UNITS BLOOD 69604 SHARLA MAGDALENO COUNT 5 [facility] COMPLETE INC INC AUTO&AUTO DIFRNTL WBC COMPREHEN 65913 SHARLA MAGDALENO SIVE 5 [facility] METABOLIC INC INC PANEL COLLECTIO 74670 SHARLA MAGDALENO N VENOUS 5 [facility] BLOOD INC INC VENIPUNCT URE INSJ PRPH 53793 [facility] CVC W/O 5 Y Y [facility] PORT/PHOTOGRAPHY COLORIST AGE 5 YR/> DEXAMETHA J8540 [facility] SONE ORAL 5 Y Y 0.25 MG [facility] INJ J1720 [facility] HYDROCORT 5 Y Y ISONE [facility] SODIUM SUCCINATE TO 100 MG INFUSION J7050 [facility]ERS NORMAL 5 Y Y SALINE [facility] SOLUTION 250 CC INJECTION J1200 [facility] 5 Y Y DIPHENHYD [facility] RAMINE HCL UP TO 50 MG CHEMOTX 25199 [facility] ADMN IV 5 Y Y NFS TQ UP [facility] 1 HR / SBST/DRUG CHEMOTX 75181 [facility] ADMN IV 5 Y Y NFS TQ [facility] SEQL NFS TO 1 HR COMPREHEN 28445 [facility] SIVE 5 Y Y METABOLIC [facility] PANEL ONDANSETR Q0162 [facility] ON 1 MG 5 Y Y ORL NOT [facility] EXCEED 48 HR DOSE REG BLOOD 27843 [facility] COUNT 5 Y Y COMPLETE [facility] AUTO&AUTO DIFRNTL WBC INJECTION J9267 [facility] 5 Y Y PACLITAXE [facility] L 1 MG INFUSION J7040 [facility] NORMAL 5 Y Y SALINE [facility] SOLUTION STERILE INJECTION J2060 [facility] 5 Y Y LORAZEPAM [facility] 2 MG CHEMOTHER 69944 [facility] APY ADMN 5 Y Y IV [facility] INFUSION TQ EA HR THERAPEUT 53056 [facility] IC 5 Y Y INJECTION [facility] [place] [address] [facility] ABDOMEN & 5 Y Y PELVIS [facility] W/CONTRAS T MATERIAL LOCM Q9967 [facility] 300-399 5 Y Y MG/ML [facility] IODINE CONCENTRA TION PER ML CT THORAX 78303 [facility] 5 Y Y [facility] SOFT 91575 [facility] TISSUE 5 Y Y NECK [facility] W/CONTRAS T MATERIAL ANESTHESI 51199 [place] [facility] A VAGINAL 5 MEDICAL DESHAUN SERVICES PROCEDURE W/BIOPSY NOS REMOTE 81262 [facility] AFTLD 5 Y Y RADIONUCL [facility] MATTIE BRACHYTX 2-12 CHANNEL CONTINUIN 11453 [facility] G MEDICAL 5 Y Y PHYSICS [facility] CONSLTJ MA WK INJECTION J1100 [facility] 5 Y Y DEXAMETHO [facility] SONE SODIUM PHOSPHATE 1 MG BRACHYTX 64723 [facility] ISODOSE 5 Y Y PLN [facility] INTERMED W/DOSIMET RY CALVIN INSERTION 81516 [facility] UTERINE 5 Y Y TANDEM&/V [facility] AGINAL OVOIDS INJECTION J1200 [facility] 5 Y Y [facility] RAMINE HCL UP TO 50 MG INFUSION J7030 [facility] NORMAL 5 Y Y SALINE [facility] SOLUTION 1000 CC INJECTION J2704 [facility] PROPOFOL 5 Y Y 10 MG [facility]ITAL [facility]PITAL INJECTION J3010 [facility] FENTANYL 5 Y Y CITRATE [facility] 0.1 MG INJECTION J2405 [facility] 5 Y Y [facility] HCL PER 1 MG BRACHYTX C1717 [facility] NONSTRAN 5 Y Y ED [facility] DOSE IRIDIUM-1 92 PER SRC INJECTION J2175 [facility] [address] [facility] E HCL [place] [address] [place] [address] [facility] DEVICES 5 Y Y DESIGN & [facility] [place] [address] [facility] 5 Y Y [facility] FIELD SETTING COMPLEX INJECTION J2250 [facility] 5 Y Y [facility] HCL PER 1 [place] [address] [place] [employer] TechnologiesULA-A 5 MEDICAL CHRISTIANO IDED [place] [address] [place] [employer] DEVICES 5 MEDICAL MEDICAL DESIGN & SERV SERV CONSTRUCT FOUNDATIO FOUNDATIO ION N N SIMPLE BRACHYTX C1717 [facility] NONSTRAND 5 Y Y ED [facility] DOSE IRIDIUM-1 92 PER SRC INJECTION J1200 [facility] 5 Y Y [facility] RAMINE HCL UP TO 50 MG INJECTION J2704 [facility] PROPOFOL 5 Y Y 10 MG [facility]PITAL HOSPITAL INSERTION 22837 [facility] UTERINE 5 Y Y TANDEM&/V HOSPITAL HOSPITAL AGINAL OVOIDS BRACHYTX 19312 AYSE BONNERD[place]ALPANA ISODOSE 5 MEDICAL CHRISTIANO PLN SERV INTERMED FOUNDATIO W/DOSIMET N RY CALVIN INJECTION J1170 [place] [address] Y Y HYDROMORP [facility] RADHA UP TO 4 MG INJECTION J2175 [place] [address] Y Y MEPERIDIN [facility] E HCL PER 100 MG CONTINUIN 59454 [facility] MEDICAL 5 Y Y PHYSICS [facility] CONSLTJ MA WK REMOTE 57290 AYSE KATHLEEN AFTLD 5 MEDICAL CHRISTIANO RADIONUCL SERV MATTIE FOUNDATIO BRACHYTX N 2-12 CHANNEL ANESTHESI 75140 AYSE CORTEZ A VAGINAL 5 MEDICAL DESHAUN SERVICES PROCEDURE W/BIOPSY NOS ANESTHESI 30338 AYSE JUSTIN A VAGINAL 5 MEDICAL CRY SERVICES PROCEDURE W/BIOPSY NOS REMOTE 24294 AYSE KATHLEEN FLORIANTLD 5 MEDICAL [place]RI[facility]IAN[place] RADIONUCL SERV MATTIE FOUNDATIO BRACHYTX N 2-12 CHANNEL BRACHYTX 63647 AYSE KATHLEEN ISODOSE 5 MEDICAL [place] PLN SERV INTERMED FOUNDATIO W/DOSIMET N RY CALVIN INSERTION 02967 AYSE BONNERNEREIDA UTERINE 5 MEDICAL [place] TANDEM&/V SERV AGINAL FOUNDATIO OVOIDS N INJECTION J3010 [facility] FENTANYL 5 Y Y CITRATE [facility] HOSPITAL 0.1 MG THER RAD 22225 AYSE KATHLEEN SIMULAJ-A 5 MEDICAL [place] IDED SERV [place] [address] AYSE KATHLEEN DEVICES 5 MEDICAL [place] DESIGN & SERV CONSTRUCT FOUNDATIO ION N SIMPLE INJECTION J2250 [place] [address] Y [facility] HCL PER 1 MG RADIATION [address] DELIVERY 1 MEV => COMPLEX RADIATION [address] DELIVERY 1 MEV => COMPLEX RADIATION 42353 [facility] 5 Y Y TREATMENT [facility]OSPITAL HOSPITAL DELIVERY 1 MEV => [place] [address] [facility] INFUSION 5 Y Y THERAPY [facility] PROPHYLAX IS/DX EA HOUR ONDANSETR Q0162 [facility] ON 1 MG 5 Y Y ORL NOT HOSPITAL HOSPITAL EXCEED 48 HR DOSE REG COMPREHEN 42596 [facility] SIVE 5 Y Y METABOLIC [facility] PANEL INFUSION J7030 [facility] NORMAL 5 Y Y SALINE [facility] SOLUTION 1000 CC [place] [address] [facility] ADMN IV 5 Y Y NFS TQ UP [facility] 1 HR SBST/[place] [address] [facility] INFUSION 5 Y Y THER [facility] PROPH ADDL SEQUENTIA L TO 1 HR DEXAMETHA J8540 [facility] SONE ORAL 5 Y Y 0.25 MG [facility] APREPITAN J8501 [facility] T ORAL 5 5 Y Y MG HOSPITAL HOSPITAL INJECTION J9060 [facility] 5 Y Y CISPLATIN [facility] POWDER OR SOLUTION 10 MG COLLECTIO 76264 [facility] N VENOUS 5 Y Y BLOOD [facility] VENIPUNCT URE INJECTION J3480 [facility] 5 Y Y POTASSIUM [facility] CHLORIDE PER 2 MEQ INJECTION J3475 [facility] 5 Y Y MAGNESIUM [facility] SULPHATE PER 500 MG INFUSION J7040 [facility] NORMAL 5 Y Y SALINE [facility] SOLUTION STERILE BLOOD 08458 [facility] COUNT 5 Y Y COMPLETE [facility] AUTO&AUTO DIFRNTL WBC RADIATION 32577 [facility] 5 Y Y TREATMENT [facility] HOSP[facility] DELIVERY 1 MEV => COMPLEX RADIATION 75394 [facility] 5 Y Y TREATMENT [facility] DELIVERY 1 MEV => COMPLEX RADIATION 42077 IA ANGI 5 MEDICAL [place] TREATMENT SERV FOUNDATIO MANAGEMEN N T 5 TREATMENT S CONTINUIN 87528 [facility] MEDICAL 5 Y Y PHYSICS [facility] CONSLTJ MA WK BASIC 64981 [facility] METABOLIC 5 Y Y PANEL [facility]OS[facility]ITAL HOSPITAL CALCIUM TOTAL COLLECTIO 00991 [facility] N VENOUS 5 Y Y BLOOD [facility] VENIPUNCT URE ECG 99738 [facility] ROUTINE 5 Y Y ECG HOSPITAL HOSPITAL W/LEAST 12 LDS TRCG ONLY W/O I&R CULTURE 95407 [facility] BACTERIAL 5 Y Y HOSPITAL [facility] QUANTTATI VE COLONY COUNT URINE URNLS DIP 20792 [facility] 5 Y Y STICK/TAB [facility] LET REAGENT AUTO MICROSCOP Y BLOOD 66004 [facility] COUNT 5 Y Y COMPLETE [facility] AUTOMATED ECG 80296 [place] [facility] ROUTINE 5 MEDICAL ECG SERV W/LEAST FOUNDATIO 12 LDS N I&R ONLY THERAPEUT 16320 [facility] IC 5 Y Y RADIOLOGY [facility] PORT IMAGES(S) RADIATION 20662 [facility] 5 Y Y TREATMENT [facility] HOSP[facility] DELIVERY 1 MEV => COMPLEX RADIATION 26772 [facility] 5 Y Y TREATMENT [facility] DELIVERY 1 MEV => COMPLEX RADIATION 38694 [facility] 5 Y Y TREATMENT [facility] DELIVERY 1 MEV => COMPLEX COMPREHEN 21499 [facility] SIVE 5 Y Y [place] [address] [facility] 5 Y Y THERAPY [facility] PROPHYLAX IS/DX EA HOUR ONDANSETR Q0162 [facility] ON 1 MG 5 Y Y ORL NOT [facility]PITAL EXCEED 48 HR DOSE REG INJECTION J9060 [facility] 5 Y Y CISPLATIN [facility] POWDER OR SOLUTION 10 MG DEXAMETHA J8540 [facility] SONE ORAL 5 [place] 0.[place] [address] [facility] INFUSION 5 Y Y THER [facility] PROPH ADDL SEQUENTIA L TO 1 HR CHEMOTX 63758 [facility] ADMN IV 5 Y Y NFS TQ UP [facility] 1 HR / SBST/DRUG INFUSION J7030 [facility] NORMAL 5 Y Y SALINE [facility] SOLUTION 1000 CC INFUSION J7050 [facility] NORMAL 5 Y Y SALINE [facility] SOLUTION 250 CC INJECTION J1453 [facility] 5 Y Y FOSAPREPI [facility] TANT 1 MG IV NFS 22002 [facility] 5 Y Y PROPHYLAX [facility] IS/DX CONCURREN T NFS COLLECTIO 50340 [facility] VENOUS 5 Y Y BLOOD [facility] VENIPUNCT URE INJECTION J3480 [facility] 5 Y Y POTASSIUM [facility] CHLORIDE PER 2 MEQ BLOOD 78454 [facility] COUNT 5 Y Y COMPLETE [facility] AUTO&AUTO DIFRNTL WBC INFUSION J7040 [facility] 5 Y Y SALINE [facility] SOLUTION STERILE INJECTION J3475 [place] [address] Y Y MAGNESIUM [facility] SULPHATE PER 500 MG GROUND A0425 [facility] MILEAGE 5 [place] PER URBAN URBAN STATUTE COGOVT COGOVT MILE RADIATION 31475 [place] [address] Y [facility]IV[facility] 1 MEV => COMPLEX AMB A0427 [facility] SERVICE 5 [place] ALS URBAN URBAN EMERGENCY COGOVT COGOVT TRANSPORT LEVEL 1 RADIATION 39025 [place] [address] Y Y TREATMENT [facility] DELIVERY 1 MEV => COMPLEX RADIATION 23721 [place] [address] MEDICAL CHRISTIANO TREATMENT SERV FOUNDATIO MANAGEMEN N T 5 TREATMENT S CONTINUIN 12513 [facility] MEDICAL 5 Y Y PHYSICS [facility] CONSLTJ MA WK THERAPEUT 32441 [facility] 5 Y Y RADIOLOGY [facility] PORT IMAGES(S) GLUCOSE 10504 [facility] 5 Y Y VINCENT BLOOD [facility] XCPT REAGENT STRIP RADIATION 33035 [place] [address] Y Y [facility] DELIVERY 1 MEV => COMPLEX RADIATION 41027 [place] [address] Y Y [facility] HOSPITAL DELIVERY 1 MEV => COMPLEX COMPREHEN 54876 [facility] 5 Y Y METABOLIC [facility] [place] [address] [facility] 5 Y Y THERAPY HOSPITAL [facility] PROPHYLAX IS/DX EA HOUR ONDANSETR Q0162 [facility] ON 1 MG 5 Y Y ORL NOT HOSPITAL HOSPITAL EXCEED 48 HR DOSE REG COLLECTIO 83364 [facility] N VENOUS 5 Y Y BLOOD [facility] VENIPUNCT URE APREPITAN J8501 [facility] T ORAL 5 5 Y Y MG HOSPITAL HOSPITAL INFUSION J7030 [facility]ORMAL 5 Y Y SALINE [facility] SOLUTION 1000 CC CHEMOTX 00734 [facility] ADMN IV 5 Y Y NFS TQ UP [facility] 1 HR SBST/[place] [address] [facility] INFUSION 5 Y Y THER [facility] PROPH ADDL SEQUENTIA L TO 1 HR DEXAMETHA J8540 [facility] SONE ORAL 5 Y Y 0.25 MG [facility] HOSPITAL INJECTION J9060 [facility] 5 Y Y CISPLATIN [facility] POWDER OR SOLUTION 10 MG BLOOD 55683 [facility] COUNT 5 Y Y COMPLETE [facility] AUTO&AUTO DIFRNTL WBC INJECTION J3475 [facility] 5 Y Y MAGNESIUM [facility] SULPHATE PER 500 MG INFUSION J7040 [facility] NORMAL 5 Y Y SALINE [facility] SOLUTION STERILE INJECTION J3480 [facility] 5 Y Y POTASSIUM [facility] CHLORIDE PER 2 MEQ RADJ DLVR 87641 [facility] 3/> 4 Y Y [facility] 08-16MEV RADJ DLVR 52127 [facility] 3/> 4 Y Y [facility] 08-16MEV THERAPEUT 01117 [facility] 4 Y Y RADIOLOGY [facility] PORT IMAGES(S) RADJ DLVR 84527 [facility] 3/> 4 Y Y [facility] 08-16MEV CONTINUIN 73019 [facility] MEDICAL 4 Y Y PHYSICS [facility] CONSLTJ MA WK RADIATION 51158 [facility] MEDICAL CHRISTIANO TREATMENT SERV FOUNDATIO MANAGEMEN N T 5 TREATMENT S LOCM Q9967 [facility] 300-399 4 Y Y MG/ML HOSPITAL HOSPITAL IODINE CONCENTRA TION PER ML RADJ DLVR 08187 [facility] 3/> 4 Y Y [facility] [place] 08-16[place] [address] AYSE DELAROSA HEAD/BRAI 4 MEDICAL FLA N W/O & SERV W/CONTRAS FOUNDATIO T N MATERIAL RADJ DLVR 76347 [facility] 3/> 4 Y Y [facility] [place] CHURCH 08-16MEV RADJ DLVR 89300 [facility] 3/> 4 Y Y [facility] [place] 08-16MEV RADJ DLVR 35662 [facility] 3/> 4 Y Y [facility] [place] 08-16MEV IV [address] [facility] INFUSION 4 Y Y THERAPY [facility] PROPHYLAX IS/DX EA HOUR CHEMOTX 80812 [facility] ADMN IV 4 Y Y NFS TQ UP [facility] 1 HR SBST/DRUG ONDANSETR Q0162 [facility] ON 1 MG 4 Y Y ORL NOT [facility] HOSPITAL EXCEED 48 [place] [address] [facility] 4 Y Y THER [facility] PROPH ADDL SEQUENTIA L TO 1 HR COMPREHEN 53452 [facility] SIVE 4 Y Y [facility]AB[facility]IC [facility] PANEL INJECTION J9060 [facility] 4 Y Y CISPLATIN [facility] POWDER OR SOLUTION 10 MG DEXAMETHA J8540 [facility] SONE ORAL 4 Y Y 0.25 MG [facility]PITAL HOSPITAL INFUSION J7030 [facility] NORMAL 4 Y Y SALINE [facility] SOLUTION 1000 CC APREPITAN J8501 [facility] UNIVERS T ORAL 5 4 Y Y MG [facility]PITAL COLLECTIO 37269 [facility] N VENOUS 4 Y Y BLOOD [facility] VENIPUNCT URE INJECTION J3475 [facility] 4 Y [facility] SULPHATE PER 500 MG INFUSION J7040 [facility] NORMAL 4 Y Y SALINE [facility] SOLUTION STERILE BLOOD 45773 [facility] COUNT 4 Y Y COMPLETE [facility] AUTO&AUTO DIFRNTL WBC INJECTION J3480 [facility] 4 Y Y POTASSIUM [facility] CHLORIDE PER 2 MEQ RADIATION 95010 AYSE BOBO 4 MEDICAL JOSÉ TREATMENT SERV FOUNDATIO MANAGEMEN N T 5 TREATMENT S CONTINUIN 52520 [facility] G MEDICAL 4 Y Y PHYSICS [facility] CONSLTJ MA WK THERAPEUT 62578 [facility] 4 Y Y RADIOLOGY [facility] PORT IMAGES(S) RADJ DLVR 60897 [facility] 3/> 4 Y Y [facility] BL[facility] -19MEV RADJ DLVR 72225 [facility] 3/> 4 Y Y [facility] [place] CHURCH -19MEV RADJ DLVR 55393 [facility] 3/> 4 Y Y [facility] BL[facility] -MEV RADJ DLVR 75762 [facility] 3/> 4 Y Y [facility] -MEV CHEMOTX 15467 [facility] ADMN IV 4 Y Y NFS TQ UP [facility] 1 HR SBST/[place] [address] [facility] 4 Y Y THERAPY [facility] PROPHYLAX IS/DX EA HOUR ONDANSETR Q0162 [facility] ON 1 MG 4 Y Y ORL NOT HOSPITAL HOSPITAL EXCEED 48 [place] [address] [facility] 4 Y Y THER [facility] PROPH ADDL SEQUENTIA L TO 1 HR COMPREHEN 72779 [facility] SIVE 4 Y Y [facility] PANEL COLLECTIO 23497 [facility] N VENOUS 4 Y Y BLOOD [facility] VENIPUNCT URE APREPITAN J8501 [facility] UNIVERS T ORAL 5 4 Y Y MG HOSPITAL HOSPITAL INFUSION J7030 [facility] NORMAL 4 Y Y SALINE [facility]OSPITAL HOSPITAL SOLUTION 1000 CC DEXAMETHA J8540 [facility] SONE ORAL 4 Y Y 0.25 MG HOSPITAL HOSPITAL INJECTION J9060 [facility] 4 Y Y CISPLATIN HOSPITAL HOSPITAL POWDER OR SOLUTION 10 MG INJECTION J3480 [facility] 4 Y Y POTASSIUM [facility]PITAL CHLORIDE PER 2 MEQ BLOOD 91772 [facility] COUNT 4 Y Y COMPLETE [facility] AUTO&AUTO DIFRNTL WBC INFUSION J7040 [facility] NORMAL 4 Y Y SALINE [facility] SOLUTION STERILE INJECTION J3475 [facility] 4 Y Y MAGNESIUM [facility] SULPHATE PER 500 MG RADIATION 14782 AYSE WANG 4 MEDICAL CHRISTIANO TREATMENT SERV FOUNDATIO MANAGEMEN N T 5 TREATMENT S THER RAD 86702 [facility] 4 Y Y [facility] FIELD SETTING SIMPLE RADJ DLVR 15024 [facility] 3/> 4 Y Y AREAS [facility] CUSTOM BLKING 08-16MEV [place] [address] [facility] DEVICES 4 Y Y DESIGN & HOSPITAL HOSPITAL CONSTRUCT ION COMPLEX 3-D 56301 [facility] RADIOTHER 4 Y Y [facility] DOSE-VOLU ME HISTOGRAM S BASIC 80339 [facility] RADIATION 4 Y [place] [facility] [address] [facility] GUIDANCE 4 Y Y RADIATION [facility] THERAPY FLDS PLACEMENT THERAPEUT 99746 AYSE WANG IC 4 MEDICAL CHRISTIANO RADIOLOGY SERV TX FOUNDATIO PLANNING N COM[place] 43457 [facility] 4 Y Y [facility] [place] [address] [facility] ABDOMEN & 4 Y Y PELVIS [facility] W/CONTRAS [place] 77324 [facility] IMAGING 4 Y Y [facility] ATTENUATI ON SKULL BASE MID-THIGH FLUORODEO A9552 [facility] XYGLUCOSE 4 Y Y F-18 FDG [facility] DX UP TO 45 MCI LOCM Q9967 [facility] 300-399 4 Y Y MG/ML [facility] IODINE CONCENTRA TION PER ML CT THORAX 00646 [facility] UNIVERS 4 Y Y W/CONTRAS [facility] T MATERIAL ANES 54959 JUVENAL MICHAELS HYSTEROSC 4 LTH MAR OPY&/HYST ANESTHESI EROSALPIN A PSC GOGRAPHY W/[place] L[place] [address] [facility] SURG 4 Y OF PATHOLOGY [place] [facility] GROSS&JAMES ROSCOPIC EXAM PATH 33399 [facility] CONSLTJ 4 Y OF SURG 1ST [place] BLK [facility]OSPI FROZEN SCTJ 1 SPEC IMHISTOCH 63808 [facility] EM/CYTCHM 4 Y OF [place] ANTIBODY HOSPI STAIN PROCEDURE HYSTEROSC 34872 AYSE STOKES OPY BX 4 MEDICAL MAR ENDOMETRI SERV UM&/POLYP FOUNDATIO C W/WO N D&C CYTP 54706 [facility] C[facility]/ 4 Y OF MILAGROS VAGINAL [place] REQ HOSPI INTERP PHYSICIAN CYTP C/V 92522 [facility] AUTO THIN 4 Y Y LYR [facility] PREPJ SCR MNL RESCR PHYS BLOOD 49457 [facility] COUNT 4 Y Y HEMOGLOBI [facility] N COLLECTIO 44074 [facility] N VENOUS 4 Y Y BLOOD [facility] VENIPUNCT URE BLOOD 19313 [facility] COUNT 4 Y Y H[facility]ATOCRNUVANCE HEALTH T URINE 40628 AYSE STOKES 4 MEDICAL MAR TEST SERV VISUAL [place] [address] CNTRL AYSE MÁRQUEZ CHARLENE TRANSVAGI 4 RADIOLOGY NAL AMBULANCE A0429 [facility] TRANSPORT GROUND A0425 [facility] MILEAGE 4 [facility] PER [facility] [place] [address] CNTRL AYSE MÁRQUEZ JAM ABDOMEN & 4 RADIOLOGY PELVIS W/CONTRAS T MATERIAL BLOOD 82787 [facility] SWINEY OCCULT 4 PAT PAT PEROXIDAS E ACTV QUAL FECES 1-3 [facility] 81956 [facility] DISCHARGE 3 Y OF YASH DAY [place] MANAGEMEN PEDIA T 30 MIN/< SBSQ HOSP 79090 [facility] CARE 3 Y OF YASH F/E/M NML [place] NB MA D PEDIA HX&XM NML 92985 [facility] NB INFT 3 Y OF YASH INITIATIO [place] N DX&TX PEDIA Encounters Encounter Start End Date Code Location Performer Type Date HOSPITAL [facility] - 7 7 [facility] OUTPATIEN INC OFFICE 16951 [facility] PHYSICIAN T VISIT S GROUP 15 MINUTES HOSPITAL [facility] - 7 7 [facility] OUTPATIEN [facility] EMERGENCY 38421 [facility]LA 7 7 MEM [facility] DEPARTMEN [facility] T VISIT HIGH/URGE NT SEVERITY HOSPITAL [facility] - 7 7 [facility] OUTPATIEN [facility] EMERGENCY 93549 [facility] DEPT 7 7 PHYSICIAN VISIT S, PLLC HIGH SEVERITY& THREAT [facility] SHARLA - 7 7 [facility] OUTPATIEN [facility] SHARLA - 7 7 [facility] SHARLA - 7 7 [facility] SHARLA - 7 7 [facility] OUTPATIEN [facility] OFFICE 78713 [facility] 7 7 PHYSICIAN T VISIT S GROUP 25 MINUTES EMERGENCY 03637 [facility] 7 7 PHYSICIAN DEPARTMEN S, PLLC T VISIT HIGH/URGE NT SEVERITY EMERGENCY 47565 [facility] 7 7 PHYSICIAN VISIT S, PLLC HIGH SEVERITY& THREAT [facility] SHARLA - 7 7 MEM [facility]P OUTPATIEN [facility] T EMERGENCY 93658 [facility] GRAMA[facility] DEPT 7 7 PHYSICIAN VISIT S, PLLC HIGH SEVERITY& THREAT [facility] EMERGENCY 50947 [facility]LA 7 7 MEM [facility]OS[facility] DEPARTMEN INC T VISIT MODERATE SEVERITY EMERGENCY 37941 [facility] 7 7 PHYSICIAN DEPARTMEN S, [facility] T VISIT HIGH/URGE NT SEVERITY HOSPITAL SH[facility]LA - 7 7 [facility] OUTPATIEN INC T OFFICE 29576 [facility] OUT[facility]IEN 7 7 PHYSICIAN T VISIT S GROUP 25 MINUTES OFFICE 20349 [facility] OUTPATIEN 7 7 PHYSICIAN T VISIT S GROUP 25 MINUTES EMERGENCY 50257 [facility] 7 7 PHYSICIAN DEPARTMEN S, [facility] T VISIT HIGH/URGE NT SEVERITY EMERGENCY 79248 [facility] 7 7 MEM [facility] DEPARTMEN INC T VISIT LOW/MODER SEVERITY HOSPITAL [facility] - 7 7 [facility] OUTPATIEN INC T EMERGENCY 86979 [facility] SARGENT 7 7 PHYSICIAN U DEPARTMEN S, [facility] T VISIT HIGH/URGE NT SEVERITY HOSPITAL SHARLA - 7 7 [facility] OUTPATIEN INC T EMERGENCY 61969 [facility] 7 7 [facility] DEPARTMEN INC T VISIT MODERATE SEVERITY HOSPITAL SHARLA - 7 7 [facility] OUTPATIEN INC T OFFICE 27205 [facility] OUT[facility] 7 7 PHYSICIAN T VISIT S GROUP 25 MINUTES OFFICE 26702 [facility] OUTPATIEN 7 7 PHYSICIAN T VISIT S GROUP 15 MINUTES HOSPITAL SHARLA - 7 7 [facility] OUTPATIEN INC T HOSPITAL SHARLA - 7 7 [facility] OUTPATIEN INC T OFFICE 54320 [facility] WHITEPATIEN 7 7 PHYSICIAN T VISIT S GROUP 25 MINUTES OFFICE 21561 [facility] OUTPATIEN 7 7 PHYSICIAN T NEW 30 S GROUP MINUTES HOSPITAL SHARLA - 7 7 [facility] OUTPATIEN [facility] T EMERGENCY 07565 [facility] BABC[facility] 7 7 PHYSICIAN DEPARTMEN S, [facility] T VISIT MODERATE SEVERITY HOSPITAL SHARLA - 7 7 [facility] OUTPATIEN [facility] SHARLA - 7 7 [facility] OUTPATIEN [facility] OFFICE 97099 [facility] MARYCRUZ JR OUTPATIEN 7 7 PHYSICIAN T VISIT S GROUP 10 MINUTES OFFICE 06165 [facility] 6 6 [facility] 15 P MINUTES HOSPITAL SHARLA - 6 6 [facility] OFFICE 86981 [facility] 6 6 [facility] 10 P MINUTES EMERGENCY 09137 [facility] HAMMONDS 6 6 PHYSICIAN DEBBY BRAUNMEN S, [facility] T VISIT HIGH/URGE NT SEVERITY EMERGENCY 84085 [facility] BABCOCK DEPT 6 6 PHYSICIAN JAMES VISIT S, [facility] HIGH SEVERITY& THREAT [facility] SHARLA - 6 6 [facility] OUTPATIEN [facility] EMERGENCY 66523 SHARLA 6 6 MEM HOSP DEPARTMEN INC T VISIT MODERATE SEVERITY EMERGENCY 33673 [facility] 6 6 PHYSICIAN DEPARTMEN S, [facility] T VISIT HIGH/URGE NT SEVERITY EMERGENCY 84766 [facility] OW[place] DEPT 6 6 PHYSICIAN JAMES VISIT S, [facility] HIGH SEVERITY& THREAT [facility]PITAL UNIVERSIT - 5 5 [facility] - 5 5 [facility] - [facility] T EMERGENC[facility] 03419 [facility] MAC DEPT 5 5 ACCOUNT REPRESENTATIVE ACCOUNT REPRESENTATIVE VISIT HIGH SEVERITY& THREAT FUN OFFICE 13480 MICHELLE MICHELLE OUTPATIEN 5 5 [facility] T VISIT 5 MINUTES HOSPITAL SHARLA - 5 5 [facility] OUTPATIEN INC HOSPITAL SHARLA - 5 5 [facility] OUTPATIEN INC T OFFICE 90558 SH[facility] MICHELLE OUTPATIEN 5 5 [facility] T VISIT 5 HOSPITAL MINUTES P HOSPITAL SHARLA - 5 5 MEM [facility] OUTPATIEN INC OFFICE 72429 SH[facility]LA MICHELLE OUTPATIEN 5 5 [facility] T VISIT 5 HOSPITAL MINUTES P OFFICE 07626 SH[facility]LA MICHELLE OUTPATIEN 5 5 [facility] T VISIT 5 HOSPITAL MINUTES P HOSPITAL SHARLA - 5 5 [facility] OUTPATIEN INC OFFICE 52980 SH[facility]LA MICHELLE OUTPATIEN 5 5 [facility] T VISIT 5 HOSPITAL MINUTES P HOSPITAL SHARLA - 5 5 [facility] OUTPATIEN [facility]PITAL SHARLA - 5 5 [facility] OUTPATIEN INC T OFFICE 34577 [facility] SCH[facility]ST[facility] OUTPATIEN 5 5 PHYSICIAN CAM T NEW 30 S GROUP MINUTES HOSPITAL SHARLA - 5 5 [facility] OUTPATIEN INC EMERGENCY 61747 SHARLA BUENROSTRO 5 5 [facility] T VISIT P HIGH/URGE NT SEVERITY HOSPITAL SH[facility] - 5 5 [facility] OUTPATIEN INC [facility]ERSIT - 5 5 [facility] 5 5 [facility] OUTPATIEN [facility] UNIVERSIT - 5 5 [facility] - 5 5 [facility] - 5 5 [facility] 5 5 [facility] - 5 5 Y [facility] - 5 5 [facility] - 5 5 Y [facility] OFFICE 74956 UNIVERSIT [facility] 5 5 Y [facility] UNIVERS[facility] - 5 5 Y [facility] - 5 5 Y [facility] - 5 5 Y [facility] - 5 5 Y [facility] - 5 5 Y [facility] - 5 5 Y [facility] - 5 5 Y [facility] - 5 5 Y [facility] UNIVERSIT - 5 5 Y [facility] T OFFICE 74676 [facility] 5 5 Y T VISIT [address] [place] [address] UNIVERSIT - 5 5 Y [facility] UNIVERSIT - 5 5 Y [facility] UNIVERSIT - 5 5 Y [facility] HOSP[facility] T EMERGENCY 44750 UNIVERSIT 5 5 Y [facility] VISIT [facility]IGH/URGE [facility] UNIVERSIT - 5 5 Y [facility] UNIVERSIT [facility] 5 5 Y [facility] UNIVERSIT - 5 5 Y [facility] UNIVERSIT - 5 5 Y [facility] UNIVERSIT - 4 4 Y [facility] UNIVERSIT - 4 4 Y [facility] UNIVERSIT - 4 4 Y [facility] UNIVERS[facility] - 4 4 Y [facility] UNIVERSIT - 4 4 Y [facility] UNIVERSIT - 4 4 Y [facility] UNIVERSIT - 4 4 Y [facility] UNIVERSIT - 4 4 Y [facility] UNIVERSIT - 4 4 Y [facility] UNIVERSIT - 4 4 Y [facility] UNIVERSIT - 4 4 Y [facility] UNIVERSIT [facility] 4 4 Y [facility] UNIVERSIT - 4 4 Y [facility] UNIVERSIT - 4 4 Y [facility] OFF[facility] [id number] [facility] 4 4 Y [facility] 15 MINUTES OFFICE [id number] [facility] 4 4 Y [facility] 40 MINUTES OFFICE [id number] AYSE WANG CONSULTAT 4 4 MEDICAL HCRISTIANO ION SERV NEW/ESTAB FOUNDATIO PATIENT N 80 MIN HOSPITAL UNIVERSIT - 4 4 Y [facility] T HOSPITAL UNIVERSIT - 4 4 Y [facility] T OFFICE [id number] [facility] 10 MINUTES DEPARTMEN DEPARTMEN T T OFFICE [id number] [facility] 4 4 MEDICAL MAR T NEW [address] [facility] UNIVERSIT - 4 4 Y [facility] T EMERGENCY 07316 AVILA MUÑOZ DEPT 4 4 VISIT HIGH SEVERITY& THREAT FUN EMERGENCY 07315 VORLUANNE OROURKEKPOR DEPT 4 4 [facility] VISIT HIGH SEVERITY& THREAT FUN EMERGENCY [id number] SWINEY SWINEY 4 4 PAT PAT DEPARTMEN T VISIT HIGH/URGE NT SEVERITY
--- OUTSIDE RECORDS SUMMARY | 2017-07-08 20:02 | External Medical Summary Rpt ---
Author Author , CESAR Organization CESAR Address Unknown Phone [email or web address] Care Team Providers Care Zumba Instructor Name Role Phone ABSNER MILAGROS, ABSMATEUS Unavailable Unavailable MILAGROS [employer] Unavailable Unavailable INC, [employer] Unavailable Unavailable INC, [employer] ALLRAN JR, ALLRAN JR Unavailable Unavailable AYOOB AND, AYOOB AND Unavailable Unavailable BEINEKE, BEINEKE Unavailable Unavailable STACY, STACY Unavailable Unavailable STACY ALL, STACY ALL Unavailable Unavailable [facility] Unavailable Unavailable DEPARTMENT, [facility] DE[facility] Unavailable Unavailable DEPARTMENT, [facility] MÁRQUEZ JAM, MÁRQUEZ JAM Unavailable Unavailable CORTEZ DESHAUN, Unavailable Unavailable CORTEZ DESHAUN BUBBA RECEIVING CLERK, BUBBA Unavailable Unavailable RECEIVING CLERK BUBBA RECEIVING CLERK, BUBBA Unavailable Unavailable RECEIVING CLERK [facility], Unavailable Unavailable [facility] CASTILLO YASH, CASTILLO Unavailable Unavailable YASH [facility] Unavailable Unavailable [facility] Unavailable Unavailable [facility], [facility] МАРИЯ GAR, МАРИЯ Unavailable Unavailable GAR NICO ALEJANDRA, Unavailable Unavailable NICO ALEJANDRA MICHELLE, MICHELLE Unavailable Unavailable MICHELLE PHI, Unavailable Unavailable MICHELLE PHI MICHELLE PHI, Unavailable Unavailable MICHELLE PHI MERRITT SHIRA, MERRITT SHIRA Unavailable Unavailable AMHARIC DESHAUN, AMHARIC Unavailable Unavailable DESHAUN FAUGHN LAO, FAUGHN Unavailable Unavailable LAO FEDDOCK CHRISTIANO, FEDDOCK Unavailable Unavailable CHRISTIANO FEEBACK, FEEBACK Unavailable Unavailable FRYMAN, FRYMAN Unavailable Unavailable YOKO, YOKO Unavailable Unavailable YOKO JAMES, YOKO Unavailable Unavailable JAMES [facility] Unavailable Unavailable INC, [facility] Unavailable Unavailable HOSPITAL P, [facility] HOSPITAL P [facility], Unavailable Unavailable [facility] STOKES MAR, STOKES Unavailable Unavailable MAR GRAMAJO, GRAMAJO Unavailable Unavailable GRAMAJO WANDA, GRAMAJO WANDA Unavailable Unavailable [facility] Un[facility] Unavailable [facility], [facility] Un[facility], [facility] MERRITT JR, MERRITT JR Unavailable Unavailable MERRITT JR DWI, MERRITT Unavailable Unavailable JR DWI MAREK FAYETTE URBAN Unavailable Unavailable COGOVT, MAREK FAYETTE URBAN COGOVT MICHAELS MAR, MICHAELS Unavailable Unavailable MAR JERAMIE JOSÉ, JERAMIE Unavailable Unavailable JOSÉ [facility] Unavailable Unavailable [facility], [facility] Un[facility], [facility] BOULDER, BOULDER Unavailable Unavailable [facility], Unavailable Unavailable PLL[facility], [...] PAT SWINEY PAT, SWINEY Unavailable Unavailable [facility] Unavailable Unavailable HOSPITALS, [facility], Unavailable Unavailable [facility] VORKPOR NICOLÁS, VORKPOR Unavailable Unavailable NICOLÁS WEST KAYLEE, WEST KAYLEE Unavailable Unavailable Purpose Continuity of Care Document - 02-14-2003 through 2016 Problems Code Diagnosis DOS Provider Status K811 CHRONIC 04-22-2017 [facility] CHOLECYSTIT PHYSICIANS IS GROUP K819 CHOLECYSTIT 04-22-2017 [facility]UNITY IS ANESTH OF UNSPECIFIED THE BLUE K828 OTHER 04-22-2017 [facility] SPECIFIED PHYSICIANS DISEASES OF GROUP GALLBLADDER U21187 ENCOUNTER 04-20-2017 [facility] PREPROCEDUR INC AL LABORATORY EXAM G249 [...] HOSP INC E663 OVERWEIGHT 02-13-2017 [facility] G629 POLYNEUROPA 02-13-2017 [facility] THY PHYSICIANS UNSPECIFIED GROUP M9983 OTHER 02-13-2017 [facility] BIOMECHANIC PHYSICIANS AL LESIONS GROUP OF LUMBAR REGION M546 PAIN IN 02-10-2017 [facility] SPINE PLLC R51 HEADACHE 02-05-2017 [facility]C C539 MALIGNANT 01-22-2017 [facility] NEOPLASM OF MEDICAL CERVIX IMAGING ASS UTERI UNSPECIFIED K219 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-22-2017 [facility] P WITHOUT ESOPHAGITIS M542 CERVICALGIA 01-22-2017 [facility] N938 OTHER SPEC 01-22-2017 [facility] ABNORMAL PHYSICIANS, UTERINE & PLLC VAGINAL BLEEDING N939 ABNORMAL 01-22-2017 [facility] UTERINE & MEDICAL VAGINAL IMAGING ASS BLEEDING UNSPECIFIED R55 SYNCOPE AND 01-22-2017 [facility] COLLAPSE [facility]ICAL IM[facility]ING ASS V6119LI UNSPECIFIED 01-22-2017 [facility] INJURY OF MEDICAL HEAD IMAGING ASS INITIAL ENCOUNTER Q447HIR UNSPECIFIED 01-22-2017 [facility] INJURY OF MEDICAL NECK IMAGING ASS INITIAL ENCOUNTER Z720 TOBACCO USE 01-22-2017 [facility] P Z8541 PERSONAL 01-22-2017 [facility] HISTORY PHYSICIANS, MALIGNANT PLLC NEOPLASM CERVIX UTERI F89104 PAIN IN 01-16-2017 [facility] RIGHT FOOT MEDICAL [facility] ASS Q5347HJ CONTUSION 01-16-2017 [facility] OF RIGHT PHYSICIANS, FOOT PLLC INITIAL ENCOUNTER A03203V UNSPECIFIED 01-16-2017 [employer] RIGHT FOOT S INC INITIAL ENCOUNTER G4762 SLEEP 01-14-2017 [facility] RELATED LEG PHYSICIANS CRAMPS GROUP M5127 OTH 01-14-2017 [facility] INTERVERTEB MEDICAL RAL DISC IMAGING ASS DISPLACEMEN T LS REGION N342 OTHER 01-08-2017 [facility] URETHRITIS PHYSICIANS, [facility] R1030 LOWER 01-08-2017 [facility] ABDOMINAL MEDICAL PAIN IMAGING ASS UNSPECIFIED H83747 MIGRAINE 01-04-2017 [facility] W/O AURA PHYSICIANS, NOT INTRACT PLL W/O STAT MIGRAIN D128 BENIGN 12-30-2016 [facility] NEOPLASM OF PHYSICIANS RECTUM GROUP K6289 OTHER 12-30-2016 COMMUNITY SPECIFIED ANESTH OF DISEASES OF THE BLUE ANUS AND RECTUM K648 OTHER 12-30-2016 [facility] HEMORRHOIDS PHYSICIANS GROUP K649 UNSPECIFIED 12-30-2016 COMMUNITY ANESTH OF HEMORRHOIDS THE BLUE K629 DISEASE OF 12-18-2016 [facility] ANUS AND PHYSICIANS RECTUM GROUP UNSPECIFIED E039 HYPOTHYROID 11-05-2016 [facility] ISM PHYSICIANS UNSPECIFIED GROUP Z0000 ENCOUNTER 10-15-2016 [facility] GEN ADULT PHYSICIANS MED EXAM GROUP W/O ABNORMAL FIND [id number] STRAIN 10-13-2016 [facility] MUSCLE PHYSICIANS, FASCIA & PLLC TENDON LOW BACK INITIAL Z41023P OTH [facility] 10-01-2016 [facility] OTH ANESTH OF CARD VASC THE BLUE DEVC IMPL INIT ENC Z452 ENCOUNTER 10-01-2016 [facility] ADJUSTMENT& PHYSICIANS MGMT GROUP VASCULAR ACCESS DEVICE Z789 OTHER 09-29-2016 [facility] SPECIFIED PHYSICIANS HEALTH GROUP STATUS C569 MALIGNANT 09-05-2016 [facility] NEOPLASM OF MEDICAL IMAGING ASS UNSPECIFIED OVARY C7989 SECONDARY 09-05-2016 [facility] NEOPLASM INC OT SPECIFIED SITES K97869 MIGRAINE 08-20-2016 [facility] W/AURA NOT PHYSICIANS, INTRACT PLLC W/STATUS MIGRAINOSUS R05 COUGH 03-18-2016 [facility] P R0602 SHORTNESS 03-18-2016 [facility] IM[facility] ASS P12287 MIGRAINE 02-04-2016 [facility] UNS NOT PHYSICIANS, INTRACT W/O PLLC STATUS MIGRAINOSUS R079 CHEST PAIN 12-01-2015 [facility] UNSPECIFIED MEDICAL IMAGING ASS F20639H PAIN D/T 08-30-2015 [facility] IMPL & GRAFTS INITIAL F98283S OTH SPEC 08-30-2015 [facility] IMPL GFT INIT ENC R1012 LEFT UPPER 06-30-2015 BUBBA RECEIVING CLERK QUADRANT PAIN R109 UNSPECIFIED 06-30-2015 [facility] ABDOMINAL MEDICAL PAIN IMAGING ASS R197 DIARRHEA 06-30-2015 BUBBA RECEIVING CLERK UNSPECIFIED 1809 MALIGNANT 04-25-2015 [facility] NEOPLASM PHI CERVIX UTERI UNSPECIFIED SITE 67841 SOLITARY 04-11-2015 [facility] PULMONARY MEDICAL NODULE IMAGING ASS V1041 PERSONAL 04-11-2015 [facility] HISTORY MEDICAL MALIGNANT IMAGING ASS NEOPLASM CERVIX UTERI V711 OBSERVATION 04-11-2015 [facility] FOR MEDICAL SUSPECTED IMAGING ASS MALIGNANT NEOPLASM 1749 MALIGNANT 02-28-2015 [facility] NEOPLASM OF [facility] P UNSPECIFIED SITE 4660 ACUTE 01-24-2015 [facility] BRONCHITIS [facility] P 1991 OTHER 01-16-2015 [facility] MALIGNANT PHYSICIANS NEOPLASM OF GROUP UNSPECIFIED SITE V5881 FITTING AND 01-16-2015 [facility] ADJUSTMENT MEDICAL OF IMAGING ASS VASCULAR CATHETER 2331 CARCINOMA 01-12-2015 [facility] IN SITU OF [facility] P UTERI 38836 SHORTNESS 01-06-[address] [facility] [address] [facility] MEDICAL IMAGING ASS 51846 NAUSEA WITH 01-06-2015 [facility] VOMITING [facility] P E9331 ANTINEOPLAS 01-06-2015 [facility] TIC-IMMUNOS [facility] UPP [facility] P ADVRSE EFF TX USE V5811 ENCOUNTER 01-02-2015 [facility] ANTINEOPLAS TIC CHEMOTHERAP Y 6268 OTH D/O 12-18-2014 [facility] N&OTH ABN BLEED FE GNT TRACT 5718 OTHER 12-01-2014 [place] [facility] NON[facility]I FOUNDATION C LIVER DISEASE 5939 UNSPECIFIED 12-01-2014 [place] [facility] DISORDER [facility] OF [facility] AND URETER 7856 ENLARGEMENT 12-01-2014 [facility] NODES V580 RADIOTHERAP 10-30-2014 [facility] 179 MALIGNANT 10-23-2014 [facility] NEOPLASM OF [facility] UTERUS PART UNSPECIFIED 1800 MALIGNANT 10-19-2014 [place] [facility]OPLASM OF SERV ENDOCERVIX FOUNDATION 1968 SEC&UNSPEC 10-18-2014 [facility] NEOPLASM NODES MULTIPLE SITES 2859 UNSPECIFIED 10-04-2014 [facility] 6238 OTHER 10-04-2014 [facility] NONINFLAMMA TORY DISORDER VAGINA 64007 ABDOMINAL 10-04-2014 [place] [facility] PAIN, SERV UNSPECIFIED FOUNDATION SITE 93272 ABDOMINAL 10-04-2014 [facility] PAIN OTHER HOSPITAL SPECIFIED SITE V153 PERS HX 10-04-2014 [facility] PRESENTING [facility] 7840 HEADACHE 09-20-2014 [facility] 1820 MALIGNANT 09-08-2014 [facility] CORPUS UTERI EXCEPT ISTHMUS 6262 EXCESSIVE 09-08-2014 [facility] OR [facility] MENSTRUATIO N 1808 MALIGNANT 09-01-2014 [place] [facility] NEOPLAS[facility] OTHER FOUNDATION SPECIFIED SITES CERVIX 78856 ABD/PELVIC 08-30-2014 [facility] MASS/LUMP OTH SPEC SITE 99311 NONGONOCOCC 08-15-2014 [facility] URETHRITIS DEPARTMENT DUE CHLAMYDTRAC HOMATIS 72691 MORBID 08-09-2014 [facility] ANESTHESIA PSC 6269 UNS D/O 08-07-2014 [facility] N&OTH ABN BLEED FE GNT TRACT V7241 08-07-2014 [place] [facility] OR TEST FOUNDATION NEGATIVE RESULT 4590 UNSPECIFIED 08-03-2014 [facility] 6259 UNSPEC 08-03-2014 [facility] W/FEMALE GENITAL ORGANS 1123 CANDIDIASIS 02-09-2014 [facility] PAT OF SKIN AND NAILS 53933 ANAL OR 02-09-2014 [facility] PAT RECTAL PAIN V3000 SINGLE 02-16-2003 [facility] W/O Medications Na ND Rx Da Fi Fi Am Da Di Ph RX Ph St me C No te ll ll ou ys ag ar # ys at rm s nt no ma ic us Or Da si cy ia de te s n re d BU 69 09 10 60 30 00 HO Ac KS 09 -1 -0 .0 00 ME ti [...] 08 09 60 30 00 HO Ac KS 09 -1 -0 .0 00 ME ti OP 70 1- 8- 00 06 TO ve IO 87 20 20 09 WN N 80 17 17 05 HC 3 76 PH L AR SR MA CY 15 0 OF MG CY TA NT BL HI ET AN A KS 68 07 08 14 4 00 HO [...] 07 08 60 30 00 HO Ac KS 09 -1 -0 .0 00 ME ti [...] 06 07 60 30 00 HO Ac KS 00 -1 -1 .0 00 ME ti [...] 17 17 30 TA 5 04 PH MA AR N- MA CA CY FF OF [...] 20 9- 6- 00 06 TO ve KS 05 20 20 08 WN AM 35 [...] 1 40 PH CE AR TA MA MA CY NO PH #3 EN 93 8 5- 32 5 NA 68 05 06 14 7 00 HO Ac KS 46 -1 -0 .0 00 ME ti [...] 2 67 PH CE AR TA MA MA CY NO PH OF EN CY 5- [...] 2 26 PH CE AR TA MA MA CY NO PH OF EN CY 5- NT 32 HI 5 AN A CI 16 04 05 14 7 00 HO Ac KS 57 -1 -1 .0 00 ME ti [...] 2 24 PH CE AR TA MA MA CY NO PH OF EN CY 5- [...] 2 34 PH CE AR TA MA MA CY NO PH OF EN CY 5- NT 32 HI 5 AN A CY 00 01 02 15 5 00 HO Ac CL 60 -1 -1 .0 00 ME ti OB 33 7- 0- 00 06 TO ve EN 07 20 20 07 WN ZA 93 17 17 96 KS 2 42 PH IN AR E MA 10 CY MG OF TA CY BL NT ET HI AN A KS 59 01 02 10 5 00 HO Ac ED 74 -1 -1 .0 00 ME ti NI 60 7- 0- 00 06 TO ve SO 17 20 20 07 WN NE 50 17 17 96 9 43 PH 20 AR MA MG CY TA OF BL ET CY NT HI AN A KS 68 01 02 12 30 00 HO [...] 5 73 AR CE MA TA CY MA NO PH EN 5- 32 5 OM [...] Procedure DOS Code Location Performer Comment URINE 02780 SH[facility] MAGDALENO 7 [facility] TEST INC INC VISUAL COLOR CMPRSN METHS ANES 39532 COMMUNITY FEEBACK INTRAPERI 7 ANESTH TONEAL OF THE UPPER BLUE ABDOMEN W/LAPS NOS LAPAROSCO 29138 SH[facility]LA MAGDALENO PY SURG 7 [facility] CHOLECYST INC INC ECTOMY BLOOD 77226 SH[facility]LA MAGDALENO COUNT 7 [facility] COMPLETE INC INC AUTO&AUTO DIFRNTL WBC COMPREHEN 74203 SH[facility] MAGDALENO SIVE 7 [facility] [address] SHARLA MAGDALENO AMYLASE 7 [facility] INC INC COLLECTIO 88769 SHARLA MAGDALENO N VENOUS 7 [facility] [place] [address] SHARLA MAGDALENO LIPASE 7 [place] [address] SHARLA MAGDALENO INFUSION 7 [facility] THERAPY/P INC INC ROPHYLAXI S /DX 1ST TO 1 HR THERAPEUT 88470 SH[facility]LA MAGDALENO IC 7 [facility] INJECTION INC INC IV PUSH EACH NEW DRUG URNLS DIP 21140 SH[facility]LA MAGDALENO 7 [facility] STICK/TAB INC INC LET REAGENT AUTO MICROSCOP Y BLOOD 53398 SH[facility] MAGDALENO COUNT 7 [facility] COMPLETE INC INC AUTO&[place] [address] SHARLA MAGDALENO LIPASE 7 [place] [address] SHARLA MAGDALENO ABDOMEN & 7 [facility] PELVIS INC [place] [address] SHARLA MAGDALENO AMYLASE 7 [facility] INC INC COMPREHEN 32476 SHARLA LINON SIVE 7 [facility] METABOLIC INC INC PANEL URINE 09738 SH[facility]LA MAGDALENO 7 [facility] TEST INC INC VISUAL COLOR CMPRSN METHS HEPATOBIL 49897 MICHELLE BEINEKE SYST 7 MEDICAL IMAG INC IMAGING GB ASS W/PHARMA INTERVENJ TECHNETIU A9537 SH[facility]LA MAGDALENO M TC-99M 7 [facility] MEBROFENI INC INC N DX [place] [address] [place] [address] SH[facility] MAGDALENO ABDOMINAL 7 [facility] REAL INC INC TIME W/[place] [address] SHARLA MAGDALENO THYROXINE 7 [facility] [place] [address] SHARLA MAGDALENO THYROID 7 [facility]OS[facility] STIMULATI INC INC NG HORMONE TSH COLLECTIO 60397 SHARLA MAGDALENO N VENOUS 7 [facility]OS[facility] BLOOD INC INC VENIPUNCT URE THERAPEUT 23300 SHARLA MAGDALENO IC PX 1/> 7 [facility] AREAS INC INC EACH 15 MIN EXERCISES APPLICATI 75947 SHARLA MAGDALENO ON 7 [facility] MODALITY INC INC 1/> AREAS HOT/COLD PACKS APPL 37415 SHARLA MAGDALENO MODALITY 7 [facility]OSP 1/> AREAS INC INC ULTRASOUN D EA 15 MIN APPL 69841 SHARLA MAGDALENO MODALITY 7 [facility] 1/> AREAS INC INC TRACTION MECHANICA L APPL 83284 SHARLA MAGDALENO MODALITY 7 [facility] 1/> AREAS INC INC ELEC STIMJ UNATTENDE D APPL 32260 SHARLA MAGDALENO MODALITY 7 [facility] 1/> AREAS INC INC TRACTION MECHANICA L APPL 64972 SHARLA MAGDALENO MODALITY 7 [facility] 1/> AREAS INC INC ELEC STIMJ UNATTENDE D APPLICATI 27807 SHARLA MAGDALENO ON 7 [facility]OS[facility] MODALITY INC INC 1/> AREAS HOT/COLD PACKS THERAPEUT 35049 SHARLA MAGDALENO IC PX 1/> 7 [facility]OS[facility] AREAS INC INC EACH 15 MIN EXERCISES PHYSICAL 35591 SHARLA MAGDALENO THERAPY 7 [facility] EVALUATIO INC INC N [place] [address] [place] [address] MICHELLE STACY HEAD/BRAI 7 MEDICAL N W/O IMAGING CONTRAST ASS MATERIAL FINAL G9638 MICHELLE STACY REPORTS 7 MEDICAL W/O DOC IMAGING 1/MORE ASS DOSE REDUCTION TECH FINAL G9638 MICHELLE STACY REPORTS 7 MEDICAL W/O DOC IMAGING 1/MORE ASS DOSE REDUCTION TECH ECG 32250 SHARLA MAGDALENO ROUTINE 7 [facility] ECG INC INC W/LEAST 12 LDS TRCG ONLY W/O I&R CREATINE 99137 SHARLA MAGDALENO KINASE 7 [facility] [place] [address] MICHELLE MARTINEZ TRANSVAGI 7 MEDICAL [place]ICAL [place] [address] MICHELLE STACY HEAD/BRAI 7 MEDICAL N W/[place] [address] MICHELLE STACY CERVICAL 7 MEDICAL SPINE W/O IMAGING CONTRAST ASS MATERIAL CREATINE 34701 SHARLA MAGDALENO KINASE MB 7 [facility] FRACTION INC INC ONLY COMPREHEN 27685 SHARLA MAGDALENO SIVE 7 [facility] METABOLIC INC INC PANEL BLOOD 10741 SHARLA MAGDALENO COUNT 7 [facility] COMPLETE INC INC AUTO&AUTO DIFRNTL WBC ECG 00371 [facility] GRAMAJO ROUTINE 7 PHYSICIAN ECG S, PLLC W/LEAST 12 LDS I&[place] [address] SHARLA MAGDALENO TROPONIN 7 [facility] QUANTITAT INC INC VINCENT FINAL RPT G[address]/MRI 7 MEDICAL CHEST/NCK IMAGING /U/S NO ASS THR NOD<1.0 CM CRTCHS E0114 ADVANCED ADVANCED UNDARM 7 TECHNOLOG TECHNOLOG OTH THAN IES INC IES INC WOOD PAIR PAD TIP&HNDGR IP RADEX 30138 MICHELLE STACY FOOT 7 MEDICAL COMPLETE IMAGING MINIMUM 3 ASS VIEWS MRI 61469 MICHELLE STACY SPINAL 7 MEDICAL CANAL IMAGING LUMBAR ASS W/O CONTRAST MATERIAL COMPREHEN 75396 SH[facility]LA MAGDALENO SIVE 7 [facility] [place] [address] SHARLA MAGDALENO MAGNESIUM 7 [facility]OS[facility] INC INC 3D 86786 MICHELLE STACY RENDERING 7 MEDICAL W/INTERP IMAGING & ASS POSTPROCE SS SUPERVISI ON COLLECTIO 69551 [facility] FRYMAN N VENOUS 7 PHYSICIAN BLOOD S GROUP VENIPUNCT URE CULTURE 38954 SHARLA MAGDALENO BACTERIAL 7 [facility] INC [place] [address] MICHELLE STACY ABDOMEN & 7 MEDICAL PELVIS IMAGING W/O ASS CONTRAST MATERIAL FINAL G9638 MICHELLE STACY REPORTS 7 MEDICAL W/O DOC IMAGING 1/MORE ASS DOSE REDUCTION TECH URNLS DIP 82133 SH[facility] MAGDALENO 7 [facility] STICK/TAB INC INC LET REAGENT AUTO MICROSCOP Y FINAL G9551 MICHELLE STACY REPR ABD 7 MEDICAL IMAG STS IMAGING W/O ASS INCIDNT FND LES NTD: THERAPEUT 80758 SH[facility] MAGDALENO IC 7 [facility] INJECTION INC INC IV PUSH EACH NEW DRUG THER 48946 SHARLA MAGDALENO PROPH/DX 7 [facility] NJX IV INC INC PUSH SINGLE/1S T SBST/DRUG THER 71371 SHARLA MAGDALENO PROPH/DX 7 [facility] NJX EA INC INC SEQL IV PUSH SBST/DRUG FAC URINE 21435 SH[facility]LA MAGDALENO 7 [facility] TEST INC INC VISUAL COLOR CMPRSN METHS ANES 62364 [facility] LOWER 7 ANESTH INTESTINE OF THE BLUE ENDOSCOPY DISTAL DUODENUM COLONOSCO 11160 SHARLA MAGDALENO PY FLX DX 7 [facility]OS[facility] W/COLLJ INC INC SPEC WHEN PFRMD THERAPEUT 21180 SHARLA MAGDALENO IC PX 1/> 7 [facility] AREAS INC INC EACH 15 MIN EXERCISES APPL 70478 SHARLA MAGDALENO MODALITY 7 [facility] 1/> AREAS INC INC ELEC STIMJ UNATTENDE D APPLICATI 18552 SHARLA MAGDALENO ON 7 [facility] MODALITY INC INC 1/> AREAS HOT/COLD PACKS PHYSICAL 17408 SHARLA MAGDALENO THERAPY 7 [facility]OS[facility] EVALUATIO INC INC N MOD COMPLEX 30 MINS BLOOD 00133 SHARLA MAGDALENO COUNT 7 [facility] COMPLETE INC INC AUTO&AUTO DIFRNTL WBC HEPATITIS 07893 SHARLA MAGDALENO B CORE 7 [facility] AN[place] [address] SHARLA MAGDALENO HEPATITIS 7 [facility] B INC INC SURFACE ANTIGEN HEPATITIS 72164 SHARLA MAGDALENO C 7 [facility] ANTIBODY INC INC INF AGT G0432 SHARLA MAGDALENO AB DETECT 7 [facility] EIA TECH INC INC HIV-1&/HI V-2 SCR HEPATITIS 59497 SH[facility]LA MAGDALENO A 7 [facility] ANTIBODY INC INC HAAB COLLECTIO 34756 SH[facility]LA MAGDALENO N VENOUS 7 [facility] BLOOD INC INC VENIPUNCT URE COMPREHEN 27101 SHARLA MAGDALENO SIVE 7 [facility] [place] [address] SHARLA MAGDALENO FREE 7 [facility] [place] [address] SHARLA MAGDALENO THYROID 7 [facility] STIMULATI INC INC NG HORMONE TSH RADEX 42190 [facility] STACY SPINE 7 MEDICAL LUMBOSACR IMAGING AL 2/3 ASS VIEWS RADEX 46005 SHARLA MAGDALENO SPINE 7 [facility]OS[facility] LUMBOSACR INC INC AL MINIMUM 4 VIEWS ANES 35623 [facility] INTEG 7 ANESTH EXTREMITI OF THE ANT BLUE TRUNK & PERINEUM NOS RMVL JAYJAY 55661 [facility] LENYRAN JR CTR VAD 7 PHYSICIAN W/SUBQ S GROUP PORT/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OMEN & 6 MEDICAL PELVIS IMAGING W/CONTRAS ASS T MATERIAL RADIOLOGI 85300 SHARLA MAGDALENO C EXAM 6 [facility] CHEST 2 INC INC VIEWS FRONTAL&L ATERAL BLOOD 45251 SHARLA MAGADLENO COUNT 6 [facility] COMPLETE INC INC AUTO&[place] [address] SHARLA MAGDALENO TROPONIN 6 [facility] QUANTITAT INC INC VINCENT ECG 63421 SHARLA BANG JR ROUTINE 6 [facility] W/LEAST P 12 LDS I&R ONLY RHYTHM 46031 SHARLA MAGDALENO ECG 1-3 6 [facility] LEADS INC INC TRACING ONLY W/O I&R ECG 02943 SHARLA MAGDALENO ROUTINE 6 [facility] ECG INC INC W/LEAST 12 LDS TRCG ONLY W/O I&R THER 70253 SHARLA MAGDALENO PROPH/DX 6 [facility] NJX IV INC INC PUSH SINGLE/1S T SBST/DRUG CREATINE 95678 SHARLA MAGDALENO KINASE 6 [facility] TOTAL INC INC COMPREHEN 73373 SHARLA MAGDALENO SIVE 6 [facility] METABOLIC INC INC PANEL CREATINE 48999 SHARLA MAGDALENO KINASE MB 6 [facility] [place] [address] [place]/BRAI 6 MEDICAL ALEJANDRA N W/O IMAGING CONTRAST ASS MATERIAL CT THORAX 58473 [place] STACY ALL 6 MEDICAL W/CONTRAS IMAGING T ASS MATERIAL RADIOLOGI 09894 [place] REGIS ALL C EXAM 6 MED[facility] CHEST 2 IMAGING VIEWS ASS FRONTAL&L ATERAL FLUORODEO A9552 [facility] XYGLUCOSE 5 Y Y F-18 [facility] DX UP TO 45 [place] [address] [place] МАРИ[facility] IMAGING [address] SERV ATTENUATI FOUNDATIO ON SKULL N BASE MID-THIGH FLUORO 22986 [facility] CENTRAL [facility] VENOUS E E [facility]ESS [facility] DEV PLACEMENT COMPREHEN 98168 [facility] SIVE 5 [facility] METABOLIC E E PANEL [facility] US VASC 44309 [facility] ACCESS 5 [facility] SITS VSL E E PATENCY [facility] NDL ENTRY PROTHROMB 37579 [facility] IN TIME 5 [facility] HEALTHCAR E E HOSPITALS HOSPITALS INJECTION J1644 [facility] HEPARIN 5 [facility] SODIUM E E PER 1000 [facility]OSPITALS HOSPITALS UNITS INSJ 89610 [facility] TUNNELED 5 [facility] CTR VAD E E W/SUBQ [facility] PORT AGE 5 YR/> INJECTION J1200 [facility] 5 [facility]ALTHCAR DIPHENHYD E E RAMINE [facility] HCL UP TO 50 MG INJECTION J3010 [facility] FENTANYL 5 [facility]ALTH[facility] HEALTHCAR CITRATE E E 0.1 MG [facility] INFUSION J7030 [place] NORMAL 5 [facility] HEALTHCAR SALINE E E SOLUTION [facility] 1000 CC GUIDE C1769 [place] WIRE 5 [facility]ALTH[facility] HEALTHCAR E E HOSPITALS HOSPITALS PORT C1788 [facility] INDWELLIN 5 [facility]ALTH[facility]ALTHCAR G E E [facility] GLUCOSE 13187 [place] QUANTITAT 5 [facility]ALTHCAR VINCENT BLOOD E E XCPT [facility] [facility] REAGENT STRIP BLOOD 14314 [facility] COUNT 5 [facility]ALTHCAR HEALTHCAR COMPLETE E E AUTOMATED [facility] RMVL JAYJAY 71360 [facility] CTR VAD 5 HEALTHCAR HEALTHCAR W/SUBQ E E PORT/REAL ESTATE TRANSACTION MANAGER [facility] CTR/PRPH INSJ INJECTION J0690 [facility] 5 HEALTHCAR HEALTHCAR CEFAZOLIN E E SODIUM [facility] 500 MG INJECTION J1642 [facility] HEPARIN 5 HEALTHCAR HEALTHCAR SODIUM E E PER 10 H[facility]PITALS HOSPITALS UNITS INJECTION J2250 [facility] 5 HEALTHCAR HEALTHCAR MIDAZOLAM E E HCL PER [facility]OSPIT[facility] [place] [address] [place] [address] [place] AND ABDOMEN & 5 MEDICAL PELVIS SERV W/CONTRAS FOUNDATIO T N MATERIAL [facility] THORAX [address]90[address] [place] A[place]OO[place] AND 5 MEDICAL W/CONTRAS SERV T FOUNDATIO MATERIAL N LOCM Q9967 [facility] [phone] 5 Y Y MG/ML HOSPITAL HOSPITAL [place] [address] MICHELLE STACY ALL ABDOMEN & 5 MEDICAL PELVIS IMAGING W/O ASS CONTRAST MATERIAL CULTURE 28891 SHARLA SHARLA BACTERIAL 5 [facility] INC INC QUANTTATI VE COLONY COUNT URINE LOCM Q9967 SHARLA MAGDALENO [phone] 5 [facility] MG/ML INC INC IODINE CONCENTRA TION PER ML CT THORAX 59224 SHARLA MAGDALENO 5 [facility] W/[place] [address] SHARLA MAGDALENO ABDOMEN & 5 [facility] PELVIS INC INC W/CONTRAS T MATERIAL INJECTION J1642 SHARLA MAGDALENO HEPARIN 5 [facility] SODIUM INC INC PER 10 UNITS URNLS DIP 96383 SHARLA MAGDALENO 5 [facility] STICK/TAB INC INC LET REAGENT AUTO MICROSCOP Y INJECTION J1642 SHARLA MAGDALENO HEPARIN 5 [facility] SODIUM INC INC PER 10 UNITS BLOOD 88557 SHARLA MAGDALENO COUNT 5 [facility] COMPLETE INC INC AUTO&AUTO DIFRNTL WBC COMPREHEN 66093 SHARLA MAGDALENO SIVE 5 [facility] METABOLIC INC INC PANEL GRANISETR Q0166 SHARLA MAGDALENO ON HCL 1 5 [facility] MG ORL INC INC NOT >48 HR DOSE REGIMEN CHEMOTX 99984 SHARLA MAGDALENO ADMN IV 5 [facility] NFS TQ UP INC INC 1 HR 1/ SBST/DRUG CHEMOTX 20440 SHARLA MAGDALENO ADMN IV 5 [facility] NFS TQ UP INC INC 1 HR 1/1ST SBST/DRUG INJECTION J9045 SHARLA MAGDALENO 5 [facility] CARBOPLAT INC INC IN 50 MG CHEMOTX 30940 SHARLA MAGDALENO ADMN IV 5 [facility] NFS TQ EA INC INC SEQL NFS TO 1 HR GRANISETR Q0166 SHARLA MAGDALENO ON HCL 1 5 [facility] MG ORL INC INC NOT >48 HR DOSE REGIMEN INJECTION J9267 SHARLAYENY MAGDALENO 5 [facility] PACLITAXE INC INC L 1 MG INJECTION J1642 SHARLA MAGDALENO HEPARIN 5 [facility] SODIUM INC INC PER 10 UNITS CHEMOTHER 50416 SHARLA MAGDALENO APY ADMN 5 [facility] IV INC INC INFUSION TQ EA HR BLOOD 73327 SHARLA MAGDALENO COUNT 5 [facility] COMPLETE INC INC AUTO&AUTO DIFRNTL WBC COMPREHEN 37754 SHARLA LINON SIVE 5 [facility] METABOLIC INC INC PANEL COLLECTIO 33333 SHARLA MAGDALENO N VENOUS 5 [facility] BLOOD INC INC VENIPUNCT URE INSJ 24307 SHARLA MAGDALENO TUNNELED 5 [facility] CTR VAD INC INC W/SUBQ PORT AGE 5 YR/> INJECTION J2405 SHARLA MAGDALENO 5 [facility] ONDANSETR INC INC ON HCL PER 1 MG PORT C1788 SHARLA MAGDALENO INDWELLIN 5 [facility] G INC INC ANESTHESI 31967 [facility] SHIRA A ACCESS 5 ANESTH CENTRAL OF THE VENOUS BLUE CIRCULATI ON RADIOLOGI 03775 IOWA NICO C 5 MEDICAL ALEJANDRA EXAMINATI IMAGING ON CHEST ASS SINGLE VIEW FRONTAL FLUORO 14814 SHARLA MAGDALENO CENTRAL 5 [facility] VENOUS INC INC ACCESS DEV PLACEMENT INJECTION J1642 SHARLA MAGDALENO HEPARIN 5 [facility] SODIUM INC INC PER 10 UNITS INJECTION J0131 SHARLA MAGDALENO 5 [facility] ACETAMINO INC INC PHEN 10 MG ECG 27719 SHARLA BANG JR ROUTINE 5 [facility] W/LEAST P 12 LDS I&R ONLY BLOOD 80088 SHARLA MAGDALENO COUNT 5 [facility] COMPLETE INC INC AUTO&AUTO DIFRNTL WBC GONADOTRO 07743 SHARLA MAGDALENO PIN 5 [facility] CHORIONIC INC INC QUALITATI VE BASIC 77138 SHARLA MAGDALENO METABOLIC 5 [facility] PANEL INC INC CALCIUM TOTAL COLLECTIO 28056 SHARLA MAGDALENO N VENOUS 5 [facility] BLOOD INC INC VENIPUNCT URE ECG 00494 SHARLA MAGDALENO ROUTINE 5 [facility] ECG INC INC W/LEAST 12 LDS TRCG ONLY W/O I&R HOSPITAL G0463 SHARLA MAGDALENO OUTPATIEN 5 [facility] T CLIN INC INC VISIT ASSESS & MGMT PT COMPREHEN 18173 SHARLA SHARLA SIVE 5 [facility]OS[facility] METABOLIC INC INC PANEL BLOOD 71001 SHARLA MAGDALENO COUNT 5 [facility]OS[facility] COMPLETE INC INC AUTO&AUTO DIFRNTL WBC ECG 97263 SHARLA BANG JR ROUTINE 5 [facility] W/LEAST P 12 LDS I&R ONLY THERAPEUT 24921 SHARLA MAGDALENO IC 5 [facility] INJECTION INC INC IV PUSH EACH NEW DRUG RADIOLOGI 84[address] [place] [address] MEDICAL ALEJANDRA EXAMINATI IMAGING ON CHEST ASS SINGLE VIEW FRONTAL FLUORODEO A9552 [facility] XYGLUCOSE 5 Y Y F-18 FDG [facility] DX UP TO 45 MCI PET 56113 [facility] [place] [address] [facility] ATTENUATI ON SKULL BASE MID-THIGH COMPREHEN 36991 SHARLA MAGDALENO SIVE 5 [facility] METABOLIC INC INC PANEL INJECTION J1642 SHARLA MAGDALENO HEPARIN 5 [facility] SODIUM INC INC PER 10 UNITS BLOOD 34544 SHARLA MAGDALENO COUNT 5 [facility] COMPLETE INC INC AUTO&AUTO DIFRNTL WBC INJECTION J9267 [facility] 5 Y Y PACLITAXE [facility] L 1 MG INFUSION J7040 [facility] NORMAL 5 Y Y SALINE [facility] SOLUTION STERILE INJECTION J2060 [facility] 5 Y Y LORAZEPAM [facility] 2 MG THERAPEUT 08668 [facility] 5 Y Y INJECTION [facility] IV PUSH EACH NEW DRUG CHEMOTHER 22350 [facility] APY ADMN 5 Y Y IV HOSPITAL HOSPITAL INFUSION TQ EA HR ONDANSETR Q0162 [facility] ON 1 MG 5 Y Y ORL NOT [facility] EXCEED 48 HR DOSE REG INJ J1720 [facility] HYDROCORT 5 Y Y [facility] SODIUM SUCCINATE TO 100 MG INJECTION J9045 [facility] 5 Y Y [facility] MG DEXAMETHA J8540 [facility] SON ORAL 5 Y Y 0.25 MG [facility] CHEMOTX 39188 [facility] ADMN IV 5 Y Y NFS TQ [facility] 1 HR SBST/DRUG INJECTION J1200 [facility] 5 Y Y [facility] RAMINE HCL UP TO 50 MG INFUSION J7050 [facility] NORMAL 5 Y Y SALINE [facility] SOLUTION 250 CC CHEMOTX 97315 [facility] ADMN IV 5 Y Y NFS TQ [facility] SEQL NFS TO 1 HR COMPREHEN 65390 SHARLA MAGDALENO SIVE 5 [facility] METABOLIC INC INC PANEL INJECTION J1642 SHARLA MAGDALENO HEPARIN 5 [facility] SODIUM INC INC PER 10 UNITS BLOOD 55361 SHARLA MAGDALENO COUNT 5 [facility]OS[facility] COMPLETE INC INC AUTO&AUTO DIFRNTL WBC IRRIGAJ 76183 SHARLA MAGDALENO IMPLNTD 5 [facility] VENOUS INC INC ACCESS DRUG DELIVERY SYST INJECTION J1642 SHARLA MAGDALENO HEPARIN 5 [facility] SODIUM INC INC PER 10 UNITS BLOOD 28757 SHARLA MAGDALENO COUNT 5 [facility] COMPLETE INC INC AUTO&AUTO DIFRNTL WBC COMPREHEN 36911 SHARLA MAGDALENO SIVE 5 [facility] METABOLIC INC INC PANEL COLLECTIO 47070 SHARLA MAGDALENO N VENOUS 5 [facility] BLOOD INC INC VENIPUNCT URE INSJ PRPH 48527 [facility] CVC W/O 5 Y Y [facility] PORT/REAL ESTATE TRANSACTION MANAGER AGE 5 YR/> DEXAMETHA J8540 [facility] SONE ORAL 5 Y Y 0.25 MG [facility] INJ J1720 [facility] HYDROCORT 5 Y Y ISONE [facility] SODIUM SUCCINATE TO 100 MG INFUSION J7050 [facility] NORMAL 5 Y Y SALINE [facility] SOLUTION 250 CC INJECTION J1200 [facility] 5 Y Y DIPHENHYD [facility] RAMINE HCL UP TO 50 MG CHEMOTX 45983 [facility] ADMN IV 5 Y Y NFS TQ UP [facility] 1 HR / SBST/DRUG CHEMOTX 30206 [facility] ADMN IV 5 Y Y NFS TQ [facility] SEQL NFS TO 1 HR COMPREHEN 66073 [facility] SIVE 5 Y Y METABOLIC [facility] PANEL ONDANSETR Q0162 [facility] ON 1 MG 5 Y Y ORL NOT [facility] EXCEED 48 HR DOSE REG BLOOD 61643 [facility] COUNT 5 Y Y COMPLETE [facility] AUTO&AUTO DIFRNTL WBC INJECTION J9267 [facility] 5 Y Y PACLITAXE [facility] L 1 MG INFUSION J7040 [facility] NORMAL 5 Y Y SALINE [facility] SOLUTION STERILE INJECTION J2060 [facility] 5 Y Y LORAZEPAM [facility] 2 MG CHEMOTHER 45218 [facility] APY ADMN 5 Y Y IV [facility] INFUSION TQ EA HR THERAPEUT 58466 [facility] IC 5 Y Y INJECTION [facility] [place] [address] [facility] ABDOMEN & 5 Y Y PELVIS [facility] W/CONTRAS T MATERIAL LOCM Q9967 [facility] 300-399 5 Y Y MG/ML [facility] IODINE CONCENTRA TION PER ML CT THORAX 17360 [facility] 5 Y Y W/[facility] T MATERIAL CT SOFT 90970 [facility] TISSUE 5 Y Y NECK [facility] W/CONTRAS T MATERIAL ANESTHESI 21205 [place] AMHARIC A VAGINAL 5 MEDICAL DESHAUN SERVICES PROCEDURE W/BIOPSY NOS REMOTE 64826 [facility] AFTLD 5 Y Y RADIONUCL [facility] MATTIE BRACHYTX 2-12 CHANNEL CONTINUIN 73328 [facility] G MEDICAL 5 Y Y PHYSICS [facility] CONSLTJ [place] INJECTION J1100 [facility] 5 Y Y DEXAMETHO [facility] SONE SODIUM PHOSPHATE 1 MG BRACHYTX 58470 [facility] ISODOSE 5 Y Y PLN [facility] INTERMED W/DOSIMET RY CALVIN INSERTION 52536 [facility] UTERINE 5 Y Y TANDEM&/V [facility] AGINAL OVOIDS INJECTION J1200 [facility] 5 Y Y [facility] RAMINE HCL UP TO 50 MG INFUSION J7030 [facility] NORMAL 5 Y Y SALINE [facility] SOLUTION 1000 CC INJECTION J2704 [facility] PROPOFOL 5 Y Y 10 MG HOSPITAL HOSPITAL INJECTION J3010 [facility] FENTANYL 5 Y Y CITRATE [facility] 0.1 MG INJECTION J2405 [facility] 5 Y Y [facility] HCL PER 1 MG BRACHYTX C1717 [facility] NONSTRAN 5 Y Y ED [facility] DOSE IRIDIUM-1 92 PER SRC INJECTION J2175 [facility] 5 Y Y [facility] [place] HCL PER [address] [place] [address] [facility] DEVICES 5 Y Y DESIGN & [facility] CONSTRUCT I[place] 35972 [facility] 5 Y Y [facility] FIELD SETTING COMPLEX INJECTION J2250 [facility] 5 Y Y [facility] HCL PER 1 MG THER RAD 08952 [place] Xochitl (So-Shee) Gold minesULA-A 5 MEDICAL [facility]IAN[facility] IDED SERV [place] [address] [place] TicTacTi DEVICES 5 MEDICAL MEDICAL DESIGN & SERV SERV CONSTRUCT FOUNDATIO FOUNDATIO ION N N SIMPLE BRACHYTX C1717 [facility] NONSTRAND 5 Y Y ED [facility] DOSE IRIDIUM-1 92 PER SRC INJECTION J1200 [facility] 5 Y Y [facility] RAMINE HCL UP TO 50 MG INJECTION J2704 [facility] PROPOFOL 5 Y Y 10 MG HOSPITAL HOSPITAL INSERTION 80700 [facility] UTERINE 5 Y Y TANDEM&/V HOSPITAL HOSPITAL AGINAL OVOIDS BRACHYTX 41538 AYSE BONNERDOKALPANA ISODOSE 5 MEDICAL [facility]RISTIANO PLN SERV INTERMED FOUNDATIO W/DOSIMET N RY CALVIN INJECTION J1170 [place] [address] Y Y HYDROMORP [facility] RADHA UP TO 4 MG INJECTION J2175 [place] [address] Y Y MEPERIDIN [facility] E HCL PER 100 MG CONTINUIN 05110 [facility] MEDICAL 5 Y Y PHYSICS [facility] CONSLTJ [place] REMOTE 56785 AYSE KATHLEEN AFTLD 5 MEDICAL [facility]IAN[facility] RADIONUCL SERV MATTIE FOUNDATIO BRACHYTX N 2-12 CHANNEL ANESTHESI 11424 AYSE CORTEZ A VAGINAL 5 MEDICAL DESHAUN SERVICES PROCEDURE W/BIOPSY NOS ANESTHESI 90320 AYSE JUSTIN A VAGINAL 5 MEDICAL CRY SERVICES PROCEDURE W/BIOPSY NOS REMOTE 57170 AYSE KATHLEEN FLORIANTLD 5 MEDICAL [facility]IAN[facility] RADIONUCL SERV MATTIE FOUNDATIO BRACHYTX N 2-12 CHANNEL BRACHYTX 71862 AYSE KATHLEEN ISODOSE 5 MEDICAL [facility]IAN[facility] PLN SERV INTERMED FOUNDATIO W/DOSIMET N RY CALVIN INSERTION 02909 AYSE BONNERNEREIDA UTERINE 5 MEDICAL [facility] TANDEM&/V SERV AGINAL FOUNDATIO OVOIDS N INJECTION J3010 [facility] FENTANYL 5 Y Y CITRATE [facility] 0.1 MG THER RAD 85093 AYSE KATHLEEN SIMULAJ-A 5 MEDICAL [facility] IDED SERV [place] [address] AYSE KATHLEEN DEVICES 5 MEDICAL [facility]IAN[facility] DESIGN & SERV CONSTRUCT FOUNDATIO ION N SIMPLE INJECTION J2250 [place] [address] Y [facility] PLANO HCL PER 1 MG RADIATION [address] DELIVERY 1 MEV => COMPLEX RADIATION [address] DELIVERY 1 MEV => COMPLEX RADIATION 04792 [facility] 5 Y Y [facility]ATMENT [facility]OSPITAL HOSPITAL DELIVERY 1 MEV => [place] [address] [facility] INFUSION 5 Y Y THERAPY [facility] PROPHYLAX IS/DX EA HOUR ONDANSETR Q0162 [facility] ON 1 MG 5 Y Y ORL NOT [facility]OSPITAL [facility]PITAL EXCEED 48 HR DOSE REG COMPREHEN 94006 [facility] SIVE 5 Y Y METABOLIC [facility] PANEL INFUSION J7030 [facility] NORMAL 5 Y Y SALINE [facility] SOLUTION 1000 CC CHEMOTX 38134 [facility] ADMN IV 5 Y Y NFS TQ UP [facility] 1 HR SBST/[place] [address] [facility] INFUSION 5 Y Y THER [facility] PROPH ADDL SEQUENTIA L TO 1 HR DEXAMETHA J8540 [facility] SONE ORAL 5 Y Y 0.25 MG [facility] APREPITAN J8501 [facility] T ORAL 5 5 Y Y MG HOSPITAL HOSPITAL INJECTION J9060 [facility] 5 Y Y CISPLATIN [facility] POWDER OR SOLUTION 10 MG COLLECTIO 76620 [facility] N VENOUS 5 Y Y BLOOD [facility] VENIPUNCT URE INJECTION J3480 [facility] 5 Y Y POTASSIUM [facility] CHLORIDE PER 2 MEQ INJECTION J3475 [facility] 5 Y Y MAGNESIUM [facility] SULPHATE PER 500 MG INFUSION J7040 [facility] NORMAL 5 Y Y SALINE [facility] SOLUTION STERILE BLOOD 47982 [facility] COUNT 5 Y Y COMPLETE [facility] AUTO&AUTO DIFRNTL WBC RADIATION 59601 [facility] 5 Y Y TREATMENT [facility] DELIVERY 1 MEV => COMPLEX RADIATION 31402 [facility] 5 Y Y TREATMENT [facility] DELIVERY 1 MEV => COMPLEX RADIATION 80410 [place] ANGI 5 MEDICAL [facility]RISTIAN[facility] TREATMENT SERV FOUNDATIO MANAGEMEN N T 5 TREATMENT S CONTINUIN 00930 [facility] MEDICAL 5 Y Y PHYSICS [facility] CONSLTJ [place] BASIC 38057 [facility] METABOLIC 5 Y Y PANEL HOSPITAL HOSPITAL CALCIUM TOTAL COLLECTIO 62971 [facility] N VENOUS 5 Y Y BLOOD [facility] VENIPUNCT URE ECG 01830 [facility] ROUTINE 5 Y Y ECG HOSPITAL HOSPITAL W/LEAST 12 LDS TRCG ONLY W/O I&R CULTURE 37093 [facility] BACTERIAL 5 Y Y HOSPITAL [facility] QUANTTATI VE COLONY COUNT URINE URNLS DIP 96316 [facility] 5 Y Y STICK/TAB [facility] LET REAGENT AUTO MICROSCOP Y BLOOD 60616 [facility] COUNT 5 Y Y COMPLETE [facility] AUTOMATED ECG 26386 [place] [facility] L[place]SA[facility] ROUTINE 5 MEDICAL ECG SERV W/LEAST FOUNDATIO 12 LDS N I&R ONLY THERAPEUT 46172 [facility] IC 5 Y Y RADIOLOGY [facility] PORT IMAGES(S) RADIATION 82855 [facility] 5 Y Y TREATMENT [facility] DELIVERY 1 MEV => COMPLEX RADIATION 55844 [facility] 5 Y Y TREATMENT [facility] DELIVERY 1 MEV => COMPLEX RADIATION 01618 [facility] 5 Y Y TREATMENT [facility] DELIVERY 1 MEV => COMPLEX COMPREHEN 95122 [facility] SIVE 5 Y Y [place] [address] [facility] 5 Y Y THERAPY [facility] PROPHYLAX IS/DX EA HOUR ONDANSETR Q0162 [facility] ON 1 MG 5 Y Y ORL NOT [facility] EXCEED 48 HR DOSE REG INJECTION J9060 [facility] 5 Y Y CISPLATIN [facility] POWDER OR SOLUTION 10 MG DEXAMETHA J8540 [facility] SONE ORAL 5 Y [place] 0.[place] [address] [facility] INFUSION 5 Y Y THER [facility] PROPH ADDL SEQUENTIA L TO 1 HR CHEMOTX 91412 [facility] ADMN IV 5 Y Y NFS TQ UP [facility] 1 HR / SBST/DRUG INFUSION J7030 [facility] NORMAL 5 Y Y SALINE [facility] SOLUTION 1000 CC INFUSION J7050 [facility] NORMAL 5 Y Y SALINE [facility] SOLUTION 250 CC INJECTION J1453 [facility] 5 Y Y FOSAPREPI [facility] TANT 1 MG IV NFS 35331 [facility] 5 Y Y PROPHYLAX [facility] IS/DX CONCURREN T NFS COLLECTIO 40338 [facility] VENOUS 5 Y Y BLOOD [facility] VENIPUNCT URE INJECTION J3480 [facility] 5 Y Y POTASSIUM [facility] CHLORIDE PER 2 MEQ BLOOD 46107 [facility] COUNT 5 Y Y COMPLETE [facility] AUTO&AUTO DIFRNTL WBC INFUSION J7040 [facility] 5 Y Y SALINE [facility] SOLUTION STERILE INJECTION J3475 [place] [address] Y Y MAGNESIUM [facility] SULPHATE PER 500 MG GROUND A0425 MAREK MAREK MILEAGE 5 FAYETTE FAYETTE PER URBAN URBAN STATUTE COGOVT COGOVT MILE RADIATION 85526 [place] [address] Y Y [facility] DELIVERY 1 MEV => COMPLEX AMB A0427 MAREK MAREK SERVICE 5 FAYETTE FAYETTE ALS URBAN URBAN EMERGENCY COGOVT COGOVT TRANSPORT LEVEL 1 RADIATION 88375 [place] [address] Y Y TREATMENT [facility] DELIVERY 1 MEV => COMPLEX RADIATION 27099 [place] [address] MEDICAL CHRISTIANO TREATMENT SERV FOUNDATIO MANAGEMEN N T 5 TREATMENT S CONTINUIN 97814 [facility] MEDICAL 5 Y Y PHYSICS [facility] CONSLTJ [place] THERAPEUT 56418 [facility] 5 Y Y RADIOLOGY [facility] PORT IMAGES(S) GLUCOSE 52425 [facility] 5 Y Y VINCENT BLOOD [facility] XCPT REAGENT STRIP RADIATION 54427 [place] [address] Y Y [facility] DELIVERY 1 MEV => COMPLEX RADIATION 55049 [place] [address] Y Y [facility] DELIVERY 1 MEV => COMPLEX COMPREHEN 12691 [facility] 5 Y Y METABOLIC [facility] [place] [address] [facility] 5 Y Y THERAPY HOSPITAL [facility] PROPHYLAX IS/DX EA HOUR ONDANSETR Q0162 [facility] ON 1 MG 5 Y Y ORL NOT HOSPITAL HOSPITAL EXCEED 48 HR DOSE REG COLLECTIO 41624 [facility] N VENOUS 5 Y Y BLOOD [facility] VENIPUNCT URE APREPITAN J8501 [facility] T ORAL 5 5 Y Y [facility] INFUSION J7030 [facility] NORMAL 5 Y Y SALINE [facility] SOLUTION 1000 CC CHEMOTX [address] [facility] ADMN [place] 5 Y Y NFS TQ UP [facility] 1 HR SBST/[place] [address] [facility] INFUSION 5 Y Y THER [facility] PROPH ADDL SEQUENTIA L TO 1 HR DEXAMETHA J8540 [facility] SONE ORAL 5 Y Y 0.25 [facility] INJECTION J9060 [facility] 5 Y Y CISPLATIN [facility] POWDER OR SOLUTION 10 MG BLOOD 95052 [facility] COUNT 5 Y Y COMPLETE [facility] AUTO&AUTO DIFRNTL WBC INJECTION J3475 [facility] 5 Y Y MAGNESIUM [facility] SULPHATE PER 500 MG INFUSION J7040 [facility] NORMAL 5 Y Y SALINE [facility] SOLUTION STERILE INJECTION J3480 [facility] 5 Y Y POTASSIUM [facility] CHLORIDE PER 2 MEQ RADJ DLVR 87079 [facility] 3/> 4 Y Y [facility] 08-16MEV RADJ DLVR 28149 [facility] 3/> 4 Y Y [facility] 08-16MEV THERAPEUT 32411 [facility] 4 Y Y RADIOLOGY [facility] PORT IMAGES(S) RADJ DLVR 63189 [facility] 3/> 4 Y Y [facility]-16MEV CONTINUIN 51585 [facility] 4 Y Y PHYSICS [facility] CONSLTJ [place] RADIATION 72167 [facility] CHRISTIANO TREATMENT SERV FOUNDATIO MANAGEMEN N T 5 TREATMENT S LOCM Q9967 [facility] [phone] 4 Y Y MG/ML HOSPITAL [facility]PITAL IODINE CONCENTRA TION PER ML RADJ DLVR 17936 [facility] 3/> 4 Y Y [facility] [place] 08-16[place] [address] A[facility]AROS[facility] HEAD/BRAI 4 MEDICAL FLA N W/O & SERV W/CONTRAS FOUNDATIO T N MATERIAL RADJ DLVR 39478 [facility] 3/> 4 Y Y [facility] [place] 08-16MEV RADJ DLVR 19808 [facility] 3/> 4 Y Y [facility] [place] 08-16MEV RADJ DLVR 16588 [facility] 3/> 4 Y Y [facility] [place] 08-16[place] [address] [facility] INFUSION 4 Y Y THERAPY [facility] PROPHYLAX IS/DX EA HOUR CHEMOTX 57425 [facility] ADMN IV 4 Y Y NFS TQ UP [facility] 1 HR SBST/DRUG ONDANSETR Q0162 [facility] ON 1 MG 4 Y Y ORL NOT [facility] EXCEED 48 [place] [address] [facility] 4 Y Y THER [facility] PROPH ADDL SEQUENTIA L TO 1 HR COMPREHEN 07171 [facility] SIVE 4 Y Y METABOLIC [facility] PANEL INJECTION J9060 [facility] 4 Y Y CISPLATIN [facility] POWDER OR SOLUTION 10 MG DEXAMETHA J8540 [facility] SONE ORAL 4 Y Y 0.25 MG [facility] INFUSION J7030 [facility] NORMAL 4 Y Y SALINE [facility] SOLUTION 1000 CC APREPITAN J8501 [facility] T OR[facility] 5 4 Y Y MG [facility] COLLECTIO 68103 [facility] N VENOUS 4 Y Y BLOOD [facility] VENIPUNCT URE INJECTION J3475 [facility] PER 500 MG INFUSION J7040 [facility] NORMAL 4 Y Y SALINE [facility] SOLUTION STERILE BLOOD 81424 [facility] COUNT 4 Y Y COMPLETE [facility] AUTO&AUTO DIFRNTL WBC INJECTION J3480 [facility] 4 Y Y POTASSIUM [facility] CHLORIDE PER 2 MEQ RADIATION 05282 AYSE BOBO 4 MEDICAL JOSÉ TREATMENT SERV FOUNDATIO MANAGEMEN N T 5 TREATMENT S CONTINUIN 35346 [facility] G MEDICAL 4 Y Y PHYSICS [facility] CONSLTJ [place] WK THERAPEUT 55307 [facility] 4 Y Y RADIOLOGY [facility] PORT IMAGES(S) RADJ DLVR 08995 [facility] 3/> 4 Y Y [facility] -19MEV RADJ DLVR 03000 [facility] 3/> 4 Y Y [facility] [place] -19MEV RADJ DLVR 92994 [facility] 3/> 4 Y Y [facility] -MEV RADJ DLVR 46784 [facility] 3/> 4 Y Y [facility] -MEV CHEMOTX 60858 [facility] ADMN IV 4 Y Y NFS TQ UP [facility] 1 HR SBST/[place] [address] [facility] 4 Y Y THERAPY [facility] PROPHYLAX IS/DX EA HOUR ONDANSETR Q0162 [facility] ON 1 MG 4 Y Y ORL NOT HOSPITAL HOSPITAL EXCEED 48 [place] [address] [facility] 4 Y Y THER [facility] PROPH ADDL SEQUENTIA L TO 1 HR COMPREHEN 40341 [facility] SIVE 4 Y Y METABOLIC [facility] PANEL COLLECTIO 38738 [facility] N VENOUS 4 Y Y BLOOD [facility] VENIPUNCT URE APREPITAN J8501 [facility] UNIVERS T ORAL 5 4 Y Y MG HOSPITAL HOSPITAL INFUSION J7030 [facility] NORMAL 4 Y Y [facility] SOLUTION 1000 CC DEXAMETHA J8540 [facility] SONE ORAL 4 Y Y 0.25 MG HOSPITAL HOSPITAL INJECTION J9060 [facility] 4 Y Y CISPLATIN [facility]OSPITAL HOSPITAL POWDER OR SOLUTION 10 MG INJECTION J3480 [facility] 4 Y Y POTASSIUM [facility] CHLORIDE PER 2 MEQ BLOOD 31484 [facility] COUNT 4 Y Y COMPLETE [facility] AUTO&AUTO DIFRNTL WBC INFUSION J7040 [facility] NORMAL 4 Y Y SALINE [facility] SOLUTION STERILE INJECTION J3475 [facility] 4 Y Y MAGNESIUM [facility] SULPHATE PER 500 MG RADIATION 11530 AYSE WANG 4 MEDICAL CHRISTIANO TREATMENT SERV FOUNDATIO MANAGEMEN N T 5 [place] [address] [facility] 4 Y Y [facility] FIELD SETTING SIMPLE RADJ DLVR 28106 [facility] 3/> 4 Y Y AREAS [facility] CUSTOM BLKING 08-16MEV [place] [address] [facility] DEVICES 4 Y Y DESIGN & HOSPITAL HOSPITAL CONSTRUCT ION COMPLEX 3-D 75567 [facility] RADIOTHER 4 Y Y [facility] DOSE-VOLU ME HISTOGRAM S BASIC 80283 [facility] RADIATION 4 Y Y [facility] [place] [address] [facility] GUIDANCE 4 Y Y RADIATION [facility] THERAPY FLDS PLACEMENT THERAPEUT 50877 AYSE WANG IC 4 MEDICAL CHRISTIANO RADIOLOGY SERV TX FOUNDATIO PLANNING N COMPLEX THER RAD 05884 [facility] Y Y [facility] [place] [address] [facility] ABDOMEN & 4 Y Y PELVIS [facility] W/CONTRAS T MATERIAL PET 90201 [facility] IMAGING 4 Y Y [facility] ATTENUATI ON SKULL BASE MID-THIGH FLUORODEO A9552 [facility] XYGLUCOSE 4 Y Y F-18 FDG [facility] DX UP TO 45 MCI LOCM Q9967 UNIVERSIT UNIVERSIT 300-399 4 Y Y MG/ML [facility] IODINE CONCENTRA TION PER ML CT THORAX 78966 [facility] UNIVERS 4 Y Y W/CONTRAS [facility] T MATERIAL ANES 79665 JUVENAL MICHAELS HYSTEROSC 4 LTH MAR OPY&/HYST ANESTHESI EROSALPIN A PSC GOGRAPHY W/[place] [address] [facility] SURG 4 Y OF PATHOLOGY [place] [facility] GROSS&JAMES ROSCOPIC EXAM PATH 76313 [facility] CONSLTJ 4 Y OF SURG 1ST [place] BLK [facility]OSPI FROZEN SCTJ 1 SPEC IMHISTOCH 04611 [facility] EM/CYTCHM 4 Y OF [place] ANTIBODY HOSPI STAIN PROCEDURE HYSTEROSC 38556 AYSE STOKES OPY BX 4 MEDICAL MAR ENDOMETRI SERV UM&/POLYP FOUNDATIO C W/WO N D&C CYTP 39027 [facility] CERVICAL/ 4 Y OF MILAGROS VAGINAL [place] REQ HOSPI INTERP PHYSICIAN CYTP C/V 07750 [facility] AUTO THIN 4 Y Y LYR [facility] PREPJ SCR MNL RESCR PHYS BLOOD 31185 [facility] COUNT 4 Y Y HEMOGLOBI [facility] N COLLECTIO 34982 [facility] N VENOUS 4 Y Y BLOOD [facility] VENIPUNCT URE BLOOD 75635 [facility] COUNT 4 Y Y [facility]INE 09282 AYSE STOKES 4 MEDICAL MAR TEST SERV VISUAL [place] [address] CNTRL AYSE MÁRQUEZ CHARLENE TRANSVAGI 4 RADIOLOGY NAL AMBULANCE A0429 [facility] SERVICE 4 [facility] EMERGENCY EMS EMS TRANSPORT GROUND A0425 [facility] MILEAGE 4 [facility] [place] [address] CNTRL AYSE MÁRQUEZ JAM ABDOMEN & 4 RADIOLOGY PELVIS W/CONTRAS T MATERIAL BLOOD 38467 SW[facility] SWINEY OCCULT 4 PAT PAT PEROXIDAS E ACTV QUAL FECES 1-[address] [facility] [address] [facility] DISCHARGE 3 Y OF YASH DAY [place] MANAGEMEN PEDIA T 30 MIN/< SBSQ HOSP [address] [facility] CARE 3 Y OF YASH F/E/M NML [place] NB [place] D PEDIA HX&XM NML [address] [facility] NB INFT 3 Y OF YASH INITIATIO [place] N DX&TX PEDIA Encounters Encounter Start End Date Code Location Performer Type Date HOSPITAL [facility] - 7 7 [facility]EN INC OFFICE 12866 [facility] 7 7 PHYSICIAN T VISIT S GROUP 15 MINUTES [facility]OSP[facility] - 7 7 [facility] EMERGENCY 28455 [facility] 7 7 [facility] DEPARTMEN [facility] T VISIT HIGH/URGE NT SEVERITY [facility]OSPITAL [facility] - 7 7 [facility] EMERGENCY 47402 [facility] DEPT 7 7 PHYSICIAN VISIT S, PLLC HIGH SEVERITY& THREAT [facility] SHARLA - 7 7 [facility] OUT[facility] HOSPITAL SHARLA [facility] 7 7 [facility] OUTPATIEN [facility] SHARLA - 7 7 [facility] H[facility] - 7 7 [facility] OFFICE 20805 [facility] 7 7 PHYSICIAN T VISIT S GROUP 25 MINUTES EMERGENCY 26035 [facility] 7 7 PHYSICIAN DEPARTMEN S, PLLC T VISIT HIGH/URGE NT SEVERITY EMERGENCY 58926 [facility] 7 7 PHYSICIAN VISIT S, PLLC HIGH SEVERITY& THREAT [facility] SHARLA - 7 7 [facility] OUTPATIEN [facility] T EMERGENCY 43013 [facility] GRAMAJO DEPT 7 7 PHYSICIAN VISIT S, PLLC HIGH SEVERITY& THREAT [facility] EMERGENCY 70441 [facility] 7 7 [facility] DEPARTMEN INC T VISIT MODERATE SEVERITY EMERGENCY 34874 [facility] BABCOCK 7 7 [facility]IS[facility] HIGH/URGE NT SEVERITY [facility]OSPITAL [facility] - 7 7 [facility] OUTPATIEN INC T OFFICE 12602 [facility] [place] OUTPATIEN 7 7 PHYSICIAN T VISIT S GROUP 25 MINUTES OFFICE 73680 [facility] YOKO OUTPATIEN 7 7 PHYSICIAN T VISIT S GROUP 25 MINUTES EMERGENCY 23056 [facility] BABCOCK 7 7 PHYSICIAN DEPARTMEN S, [facility] T VISIT HIGH/URGE NT SEVERITY EMERGENCY 34697 [facility] 7 7 [facility] DEPARTMEN INC T VISIT LOW/MODER SEVERITY [facility]OSPITAL [facility] - 7 7 [facility] OUTPATIEN INC T EMERGENCY 68721 [facility] SARGENT 7 7 PHYSICIAN U [facility]PARTMEN S, [facility] T VISIT HIGH/URGE NT SEVERITY [facility]OSPITAL SH[facility] - 7 7 [facility] OUTPATIEN INC T EMERGENCY 50206 [facility] 7 7 [facility] DEPARTMEN INC T VISIT MODERATE SEVERITY [facility]OSPITAL SH[facility]LA - 7 7 [facility] OUTPATIEN INC T OFFICE 26187 [facility] [place] OUTPATIEN 7 7 PHYSICIAN T VISIT S GROUP 25 MINUTES OFFICE 25727 [facility] MARYCRUZ BEAN OUTPATIEN 7 7 PHYSICIAN T VISIT S GROUP 15 MINUTES HOSPITAL SH[facility] - 7 7 [facility] OUTPATIEN INC T HOSPITAL SH[facility] - 7 7 [facility] OUTPATIEN INC T OFFICE 11640 [facility] YOKO WHITEPATIEN 7 7 PHYSICIAN T VISIT S GROUP 25 MINUTES OFFICE 08513 [facility] FRYMAN OUTPATIEN 7 7 PHYSICIAN T NEW 30 S GROUP MINUTES HOSPITAL SH[facility] - 7 7 [facility] OUTPATIEN [facility] T EMERGENCY 93687 [facility] BABCOCK 7 7 PHYSICIAN DEPARTMEN S, [facility] T VISIT MODERATE SEVERITY HOSPITAL SHARLA - 7 7 [facility] OUTPATIEN [facility] HOSPITAL SHARLA - 7 7 [facility] OFFICE 12648 [facility] MARYCRUZ JR OUTPATIEN 7 7 PHYSICIAN T VISIT S GROUP 10 MINUTES OFFICE 41617 [facility] 6 6 [facility] 15 P MINUTES HOSPITAL SHARLA - 6 6 [facility] OFFICE 13854 [facility] 6 6 [facility] 10 P MINUTES EMERGENCY 42967 COL[facility] HAMMONDS 6 6 PHYSICIAN DEBBY BRAUNMEN S, [facility] T VISIT HIGH/URGE NT SEVERITY EMERGENCY 62707 [facility] BABCOCK DEPT 6 6 PHYSICIAN JAMES VISIT S, [facility] HIGH SEVERITY& THREAT [facility] SHARLA - 6 6 [facility] OUTPATIEN [facility] EMERGENCY 67139 SH[facility] 6 6 MEM [facility] DEPARTMEN INC T VISIT MODERATE SEVERITY EMERGENCY 08899 [facility] OWEN [facility] 6 6 PHYSICIAN DEPARTMEN S, [facility] T VISIT HIGH/URGE NT SEVERITY EMERGENCY 99066 [facility] OWENEY DEPT 6 6 PHYSICIAN JAMES VISIT S, [facility] HIGH SEVERITY& THREAT [facility] UNIVERSIT - 5 5 [facility] UK - 5 5 [facility] UNIVERSIT - 5 5 [facility] 63129 [facility]UB[facility] MAC DEPT 5 5 RECEIVING CLERK RECEIVING CLERK VISIT HIGH SEVERITY& THREAT FUN OFFICE 97654 MICHELLE MICHELLE OUTPATIEN 5 5 [facility] T VISIT 5 MINUTES HOSPITAL SHARLA - 5 5 [facility] OUTPATIEN INC HOSPITAL SH[facility] - 5 5 [facility] OUTPATIEN INC T OFFICE 28639 SHARLA MICHELLE OUTPATIEN 5 5 [facility] T VISIT 5 HOSPITAL MINUTES P HOSPITAL SHARLA - 5 5 [facility] OUTPATIEN INC OFFICE 07573 SHARLA MICHELLE OUTPATIEN 5 5 [facility] T VISIT 5 HOSPITAL MINUTES P OFFICE 62480 SHARLA MICHELLE OUTPATIEN 5 5 [facility] T VISIT 5 HOSPITAL MINUTES P HOSPITAL SHARLA - 5 5 [facility] OUTPATIEN INC OFFICE 05166 SHARLA MICHELLE OUTPATIEN 5 5 [facility] T VISIT 5 HOSPITAL MINUTES P HOSPITAL SHARLA - 5 5 [facility] OUTPATIEN [facility] HOSPITAL SHARLA - 5 5 [facility] OUTPATIEN INC T OFFICE 34622 [facility] SCHULSTAD OUTPATIEN 5 5 PHYSICIAN CAM T NEW 30 S GROUP MINUTES HOSPITAL SHARLA - 5 5 [facility] OUTPATIEN INC EMERGENCY 50972 SHARLA BUENROSTRO 5 5 [facility] T VISIT P HIGH/URGE NT SEVERITY HOSPITAL SH[facility] - 5 5 [facility] OUTPATIEN INC [facility] - 5 5 [facility] 5 5 [facility]EN [facility] HOSPITAL UNIVERSIT [facility] 5 5 [facility] 5 5 [facility] 5 5 [facility] - 5 5 [facility] UNIVERSIT [facility] 5 5 Y [facility] UNIVERSIT - 5 5 [facility] - 5 5 Y [facility] OFF[facility] 98315 UNIVERSIT [facility] 5 5 Y [facility] 15 [facility] UNIVERSIT [facility] 5 5 Y [facility] UNIVERSIT - 5 5 Y [facility] UNIVERSIT - 5 5 Y [facility] UNIVERSIT - 5 5 Y [facility] UNIV[facility] - 5 5 Y [facility] UNIVERSIT - 5 5 Y [facility] UNIVERSIT [facility] 5 5 Y [facility] UNIVERSIT - 5 5 Y [facility] UNIVERSIT - 5 5 Y [facility] OFF[facility] 70267 [facility] 5 5 Y T VISIT [address] [place] [address] UNIVERSIT - 5 5 Y [facility] UNIVERSIT - 5 5 Y [facility] UNIVERSIT - 5 5 Y [facility]OSP[facility] T EMERGENCY 77760 UNIVERSIT 5 5 Y [facility] VISIT HIGH/URGE [facility] UNIVERSIT - 5 5 Y [facility] UNIVERSIT [facility] 5 5 Y [facility] UNIVERSIT - 5 5 Y [facility] UNIVERSIT - 5 5 Y [facility] UNIVERSIT - 4 4 Y [facility] UNIVERS[facility] - 4 4 Y [facility] UNIVERSIT - 4 4 Y [facility] UNIVERSIT - 4 4 Y [facility] UNIVERSIT - 4 4 Y [facility] UNIVERSIT - 4 4 Y [facility] UNIVERSIT - 4 4 Y [facility] UNIVERS[facility] - 4 4 Y [facility] UNIVERSIT - 4 4 Y [facility] UNIVERSIT - 4 4 Y [facility] UNIVERS[facility] - 4 4 Y [facility] UNIVERS[facility] - 4 4 Y [facility] UNIVERSIT - 4 4 Y [facility] UNIVERSIT - 4 4 Y [facility] OFFICE 57004 [facility] 4 4 Y [facility] 15 MINUTES OFFICE 15202 [facility] 4 4 Y VISIT HOSPITAL 40 MINUTES OFFICE 54080 AYSE WANG CONSULTAT 4 4 MEDICAL CHRISTIANO ION SERV NEW/ESTAB FOUNDATIO PATIENT N 80 MIN HOSPITAL UNIVERSIT - 4 4 Y [facility] T HOSPITAL UNIVERSIT - 4 4 Y [facility] T OFFICE 90216 VANESSA MENDEZ [facility] 4 4 [facility] 10 MINUTES DEPARTMEN DEPARTMEN T T OFFICE 18823 [facility]SE [facility]OKES [facility] 4 4 MEDICAL MAR T NEW 30 SERV MINUTES [facility] UNIVERSIT - 4 4 Y [facility] T EMERGENCY 95033 AVILA MUÑOZ DEPT 4 4 VISIT HIGH SEVERITY& THREAT FUN EMERGENCY 16427 VORLUANNE [facility] DEPT [address] [facility] VISIT HIGH SEVERITY& THREAT FUN EMERGENCY 32440 SWINEY SWINEY 4 4 PAT PAT DEPARTMEN T VISIT HIGH/URGE NT SEVERITY
--- OUTSIDE RECORDS SUMMARY | 2017-07-08 20:04 | External Medical Summary Rpt ---
Demographics Preferred Language Polish Marital Status Unknown Amish Affiliation Unknown Race Unknown Ethnic Group Unknown Author Author CESAR Address Unknown Phone Immunization No patient found.
--- OUTSIDE RECORDS SUMMARY | 2017-07-08 20:04 | External Medical Summary Rpt ---
Demographics Preferred Language Amharic Marital Status Unknown Buddhist Affiliation Unknown Race Unknown Ethnic Group Unknown Author Author CESAR Address Unknown Phone Immunization No patient found.
--- OUTSIDE RECORDS SUMMARY | 2017-07-08 20:05 | External Medical Summary Rpt ---
Author Author [employer] Meek, [employer] Organization [employer] Address Unknown Phone Unavailable Results Comprehensive metabolic 2000 panel in Serum or Plasma Observa Value Referen Units Interpr Notes Date tion ce etation Range Albumin/G 1.1 - 1.8 No Low No Oct 2 lobulin informati informati 2017 6:30 [Mass on in on in AM ratio] in source source Serum or data data Plasma Albumin 3.4 - 5.0 gm/dL Low No Oct 2 [Mass/vol informati 2017 6:30 ume] in on in AM Serum or source Plasma data Alkaline 46 - 116 U/L Normal No Oct 2 phosphata informati 2017 6:30 se on in AM [Enzymati source c data activity/ volume] in Serum or Plasma Bilirubin 0.2 - 1.0 mg/dL Normal No Oct 2 .total informati 2017 6:30 [Mass/vol on in AM ume] in source Serum or data Plasma Urea 7 - 18 mg/dL Low No Oct 2 nitrogen informati 2017 6:30 [Mass/vol on in AM ume] in source Serum or data Plasma Calcium 8.5 - mg/dL Normal No Oct 2 [Mass/vol 10.1 informati 2017 6:30 ume] in on in AM Serum or source Plasma data Chloride 98 - 107 mmoL/L High No Oct 2 [Moles/vo informati 2017 6:30 lume] in on in AM Serum or source Plasma data Carbon 21.0 - mmoL/L Normal No Oct 2 dioxide, 32.0 informati 2017 6:30 total on in AM [Moles/vo source lume] in data Serum or Plasma Creatinin 0.55 - mg/dL Normal No Oct 2 e 1.02 informati 2017 6:30 [Mass/vol on in AM ume] in source Serum or data Plasma Creatinin 50 - 200 ML/MIN Normal No Oct 2 e renal informati 2017 6:30 clearance on in AM source predicted data by Cockcroft -Gault formula Estimated 59- ML/MIN No REFERENCE Oct 2 informati RANGE: 2017 6:30 glomerula on in >60 AM r source ML/MIN/1. filtratio data 73 SQUARE n rate METERSIf (GF this patient is -A merican, then multiply theresult by 1.210. Globulin 1.3 - 3.2 gm/dL High No Oct 2 [Mass/vol informati 2016 6:30 ume] in on in AM Serum source data Glucose 74 - 106 mg/dL Normal No Oct 2 [Mass/vol informati 2016 6:30 ume] in on in AM Serum or source Plasma data Potassium 3.5 - 5.1 mmoL/L Normal No Oct 2 informati 2016 6:30 [Moles/vo on in AM lume] in source Serum or data Plasma Sodium 136 - 145 mmoL/L Normal No Oct 2 [Moles/vo informati 2016 6:30 lume] in on in AM Serum or source Plasma data Aspartate 15 - 37 U/L No No Jun 2 informati informati 2016 6:30 aminotran on in on in AM sferase source source [Enzymati data data c activity/ volume] in Serum or Plasma Alanine 12 - 78 U/L No No Oct 2 aminotran informati informati 2017 6:30 sferase on in on in AM [Enzymati source source c data data activity/ volume] in Serum or Plasma Protein 6.4 - 8.2 gm/dL Low No Oct 2 [Mass/vol informati 2017 6:30 ume] in on in AM Serum or source Plasma data Valproate [Mass/volume] in Serum or Plasma Observa Value Referen Units Interpr Notes Date tion ce etation Range Valproate 50 - 100 mcg/mL Low No Jun 29 informati 2016 6:30 [Mass/vol on in AM ume] in source Serum or data Plasma CBC W Auto Differential panel in Blood Observa Value Referen Units Interpr Notes Date tion ce etation Range Basophils 0 - 0.2 K/MM3 Normal No Jun 2 informati 2016 6:30 [#/volume on in AM ] in source Blood by data Automated count Basophils 0.1 - 2.0 % Normal No Jun 2 /100 informati 2016 6:30 leukocyte on in AM s in source Blood by data Automated count Eosinophi 0.0 - 0.4 K/mm3 Normal No Oct 2 ls informati 2016 6:30 [#/volume on in AM ] in source Blood by data Automated count Eosinophi 0.1 - % Normal No Jun 2 ls/100 12.0 informati 2017 6:30 leukocyte on in AM s in source Blood by data Automated count Granulocy 1.8 - 7.8 K/mm3 Normal No Jun 2 jennifer informati 2016 6:30 [#/volume on in AM ] in source Blood by data Automated count Granulocy 37.0 - % Normal No Jun 2 jennifer/100 80.0 informati 2017 6:30 leukocyte on in AM s in source Blood by data Automated count Hematocri 37.0 - % Low No Jun 2 t [Volume 47.0 informati 2016 6:30 on in AM Fraction] source of Blood data Hemoglobi 12.2 - g/dL Normal No Jun 2 n 16.2 informati 2017 6:30 [Mass/vol on in AM ume] in source Blood data Lymphocyt 0.7 - 4.5 K/mm3 Normal No Jun 2 es informati 2017 6:30 [#/volume on in AM ] in source Unspecifi data ed specimen by Automated count Lymphocyt 10 - 50.0 % Normal No Jun 2 es informati 2016 6:30 [#/volume on in AM ] in source Unspecifi data ed specimen by Automated count Erythrocy 27 - 31.2 pg High No Jun 2 te mean informati 2016 6:30 corpuscul on in AM ar source hemoglobi data n [Entitic mass] Erythrocy 31.8 - g/dl High No Jun 2 te mean 35.4 informati 2016 6:30 corpuscul on in AM ar source hemoglobi data n concentra tion [Mass/vol ume] by Automated count Erythrocy 82.2 - fl Normal No Jun 2 te mean 97.8 informati 2016 6:30 corpuscul on in AM ar volume source [Entitic data volume] by Automated count Monocytes 0.1 - 1.0 K/mm3 Normal No Jun 2 informati 2017 6:30 [#/volume on in AM ] in source Blood by data Automated count Monocytes 1.7 - 9.3 % Normal No Jun 2 /100 informati 2017 6:30 leukocyte on in AM s in source Blood by data Automated count Platelet 7.4 - fl Normal No Jun 2 mean 10.4 informati 2016 6:30 volume on in AM [Entitic source volume] data in Blood by Automated count Platelets 142 - 424 K/mm3 Normal No Jun 29 inform2016 6:30 [#/volume on in AM ] in source Blood data Erythrocy 4.2 - 5.4 M/mm3 Low No Jun 29 jennifer inform2016 6:30 [#/volume on in AM ] in source Amniotic data fluid Erythrocy 11.5 - % Normal No Jun 29 te 17.5 informati 2016 6:30 distribut on in AM ion width source [Entitic data volume] by Automated count Leukocyte 4.8 - K/MM3 No No Jun 29 s 10.8 informati informati 2016 6:30 [#/volume on in on in AM ] in source source Blood data data Valproate [Mass/volume] in Serum or Plasma Observa Value Referen Units Interpr Notes Date tion ce etation Range Valproate 50 - 100 mcg/mL Normal No Jun 28 inform2016 [Mass/vol on in 10:59 AM ume] in source Serum or data Plasma Drugs identified in Urine by Screen method Observa Value Referen Units Interpr Notes Date tion ce etation Range Positive urine drug screen samples are stored for 7 days. Contact the Lab if confirmation of positives is needed. Ampheta NEGATIV <1000 ng/mL No No Jun 28 mine E informa informa 2016 [Presen tion in tion in 6:15 AM ce] in source source Urine data data by Screen method Barbitura <200 ng/mL No No Jun 28 jennifer informati informati 2016 6:15 [Mass/vol on in on in AM ume] in source source Urine by data data Screen method Benzodiaz 200 ng/mL ng/mL No No Jun 28 epines informati informati 2016 6:15 [Mass/vol on in on in AM ume] in source source Serum or data data Plasma by Screen method Cocaine <300 ng/g High This is Jun 28 [Mass/vol an 2016 6:15 ume] in UNCONFIRM AM Unspecifi ED ed result. specimen This result is for medicalpu rposes and/or treatment only. Methadone <300 ng/mL No No Jun 28 informati informati 2016 6:15 [Mass/vol on in on in AM ume] in source source Unspecifi data data ed specimen Opiates <300 ng/mL High This is Jun 28 [Mass/vol an 2017 6:15 ume] in UNCONFIRM AM Unspecifi ED ed result. specimen This result is for medicalpu rposes and/or treatment only. Phencycli <25 ng/mL No No Jun 28 dine informati informati 2017 6:15 [Mass/vol on in on in AM ume] in source source Unspecifi data data ed specimen 11-Hydr NEGATIV <50 ng/mL No No Jun 28 oxy E informa informa 2017 delta-9 tion in tion in 6:15 AM source source tetrahy data data drocann abinol [Presen ce] in Unspeci fied specime n Valproate [Mass/volume] in Serum or Plasma Observa Value Referen Units Interpr Notes Date tion ce etation Range Valproate 50 - 100 mcg/mL Normal No Jun 28 informati 2017 5:00 [Mass/vol on in AM ume] in source Serum or data Plasma Ammonia [Mass/volume] in Unspecified specimen Observa Value Referen Units Interpr Notes Date tion ce etation Range Ammonia 19 - 54 umoL/L Low No Jun 28 [Mass/vol informati 2017 ume] in on in 12:25 AM Unspecifi source ed data specimen Valproate [Mass/volume] in Serum or Plasma Observa Value Referen Units Interpr Notes Date tion ce etation Range Valproate 50 - 100 mcg/mL High Jun 27 alert NOTIFICAT 2017 [Mass/vol ION 11:45 PM ume] in RESULT Serum or Plasma Thyroxine (T4) free [Mass/volume] in Serum or Plasma Observa Value Referen Units Interpr Notes Date tion ce etation Range Thyroxine 0.76 - ng/dL Normal No Jun 27 (T4) 1.46 informati 2017 8:55 free on in PM [Mass/vol source ume] in data Serum or Plasma Thyrotropin [Units/volume] in Serum or Plasma Observa Value Referen Units Interpr Notes Date tion ce etation Range Thyrotrop 0.358 - uIU/ml High No Jun 27 in 3.740 informati 2017 8:55 [Units/vo on in PM lume] in source Serum or data Plasma Acetaminophen [Mass/volume] in Unspecified specimen Observa Value Referen Units Interpr Notes Date tion ce etation Range Acetamino 10 - 30 ug/mL Low No Sep 30 phen informati 2017 8:55 [Mass/vol on in PM ume] in source Unspecifi data ed specimen Ethanol [Mass/volume] in Serum or Plasma Observa Value Referen Units Interpr Notes Date tion ce etation Range Ethanol 0 - 99 mg/dL Normal ANY Sep 30 [Mass/vol ALCOHOL > 2017 8:55 ume] in OR = 80 PM Serum or MG/DL IS Plasma CONSIDERE D LEGALLYIN TOXICATED UNDER [facility] LAW. Comprehensive metabolic 2000 panel in Serum or Plasma Observa Value Referen Units Interpr Notes Date tion ce etation Range Albumin/G 1.1 - 1.8 No Low No Sep 30 lobulin informati informati 2017 8:55 [Mass on in on in PM ratio] in source source Serum or data data Plasma Albumin 3.4 - 5.0 gm/dL Normal No Sep 30 [Mass/vol informati 2017 8:55 ume] in on in PM Serum or source Plasma data Alkaline 46 - 116 U/L Normal No Sep 30 phosphata informati 2017 8:55 se on in PM [Enzymati source c data activity/ volume] in Serum or Plasma Bilirubin 0.2 - 1.0 mg/dL Normal No Sep 30 .total informati 2017 8:55 [Mass/vol on in PM ume] in source Serum or data Plasma Urea 7 - 18 mg/dL Normal No Sep 30 nitrogen informati 2017 8:55 [Mass/vol on in PM ume] in source Serum or data Plasma Calcium 8.5 - mg/dL High No Sep 30 [Mass/vol 10.1 informati 2017 8:55 ume] in on in PM Serum or source Plasma data Chloride 98 - 107 mmoL/L Normal No Sep 30 [Moles/vo informati 2017 8:55 lume] in on in PM Serum or source Plasma data Carbon 21.0 - mmoL/L Normal No Sep 30 dioxide, 32.0 informati 2017 8:55 total on in PM [Moles/vo source lume] in data Serum or Plasma Creatinin 0.55 - mg/dL High No Sep 30 e 1.02 informati 2017 8:55 [Mass/vol on in PM ume] in source Serum or data Plasma Creatinin 50 - 200 ML/MIN Normal No Sep 30 e renal informati 2017 8:55 clearance on in PM source predicted data by Cockcroft -Gault formula Estimated 59- ML/MIN Low REFERENCE Sep 30 RANGE: 2016 8:55 glomerula >60 PM r ML/MIN/1. filtratio 73 SQUARE n rate METERSIf (GF this patient is -A merican, then multiply theresult by 1.210. Globulin 1.3 - 3.2 gm/dL High No May 30 [Mass/vol informati 2016 8:55 ume] in on in PM Serum source data Glucose 74 - 106 mg/dL High No May 30 [Mass/vol informati 2016 8:55 ume] in on in PM Serum or source Plasma data Potassium 3.5 - 5.1 mmoL/L Normal No Jun 27 informati 2016 8:55 [Moles/vo on in PM lume] in source Serum or data Plasma Sodium 136 - 145 mmoL/L Normal No Jun 27 [Moles/vo informati 2016 8:55 lume] in on in PM Serum or source Plasma data Aspartate 15 - 37 U/L High No Jun 27 informati 2016 8:55 aminotran on in PM sferase source [Enzymati data c activity/ volume] in Serum or Plasma Alanine 12 - 78 U/L Normal No Jun 27 aminotran informati 2016 8:55 sferase on in PM [Enzymati source c data activity/ volume] in Serum or Plasma Protein 6.4 - 8.2 gm/dL Normal No Jun 27 [Mass/vol informati 2016 8:55 ume] in on in PM Serum or source Plasma data Salicylates [Mass/volume] in Serum or Plasma Observa Value Referen Units Interpr Notes Date tion ce etation Range Salicylat 2.8 - mg/dL Normal No Jun 27 es 20.0 2016 8:55 [Mass/vol on in PM ume] in source Serum or data Plasma Valproate [Mass/volume] in Serum or Plasma Observa Value Referen Units Interpr Notes Date tion ce etation Range Valproate 50 - 100 mcg/mL Normal No Jun 27 inform2016 8:55 [Mass/vol on in PM ume] in source Serum or data Plasma CBC W Auto Differential panel in Blood Observa Value Referen Units Interpr Notes Date tion ce etation Range Basophils 0 - 0.2 K/MM3 Normal No Jun 27 inform2016 8:55 [#/volume on in PM ] in source Blood by data Automated count Basophils 0.1 - 2.0 % Normal No Sep 30 /100 informati 2017 8:55 leukocyte on in PM s in source Blood by data Automated count Eosinophi 0.0 - 0.4 K/mm3 Normal No Sep 30 ls informati 2016 8:55 [#/volume on in PM ] in source Blood by data Automated count Eosinophi 0.1 - % Normal No Sep 30 ls/100 12.0 informati 2017 8:55 leukocyte on in PM s in source Blood by data Automated count Granulocy 1.8 - 7.8 K/mm3 Normal No Sep 30 jennifer informati 2016 8:55 [#/volume on in PM ] in source Blood by data Automated count Granulocy 37.0 - % Normal No Sep 30 jennifer/100 80.0 informati 2016 8:55 leukocyte on in PM s in source Blood by data Automated count Hematocri 37.0 - % Normal No Sep 30 t [Volume 47.0 informati 2016 8:55 on in PM Fraction] source of Blood data Hemoglobi 12.2 - g/dL Normal No Sep 30 n 16.2 informati 2017 8:55 [Mass/vol on in PM ume] in source Blood data Lymphocyt 0.7 - 4.5 K/mm3 Normal No Sep 30 es informati 2017 8:55 [#/volume on in PM ] in source Unspecifi data ed specimen by Automated count Lymphocyt 10 - 50.0 % Normal No Sep 30 es informati 2017 8:55 [#/volume on in PM ] in source Unspecifi data ed specimen by Automated count Erythrocy 27 - 31.2 pg Normal No Sep 30 te mean informati 2017 8:55 corpuscul on in PM ar source hemoglobi data n [Entitic mass] Erythrocy 31.8 - g/dl Low No Sep 30 te mean 35.4 informati 2017 8:55 corpuscul on in PM ar source hemoglobi data n concentra tion [Mass/vol ume] by Automated count Erythrocy 82.2 - fl Normal No Sep 30 te mean 97.8 informati 2016 8:55 corpuscul on in PM ar volume source [Entitic data volume] by Automated count Monocytes 0.1 - 1.0 K/mm3 Normal No Sep 30 informati 2016 8:55 [#/volume on in PM ] in source Blood by data Automated count Monocytes 1.7 - 9.3 % Normal No Sep 30 /100 informati 2017 8:55 leukocyte on in PM s in source Blood by data Automated count Platelet 7.4 - fl Normal No Sep 30 mean 10.4 informati 2017 8:55 volume on in PM [Entitic source volume] data in Blood by Automated count Platelets 142 - 424 K/mm3 Normal No Sep 30 informati 2016 8:55 [#/volume on in PM ] in source Blood data Erythrocy 4.2 - 5.4 M/mm3 Normal No Sep 30 jennifer informati 2017 8:55 [#/volume on in PM ] in source Amniotic data fluid Erythrocy 11.5 - % Normal No Sep 30 te 17.5 informati 2016 8:55 distribut on in PM ion width source [Entitic data volume] by Automated count Leukocyte 4.8 - K/MM3 Normal No Sep 30 s 10.8 informati 2016 8:55 [#/volume on in PM ] in source Blood data Comprehensive metabolic 2000 panel in Serum or Plasma Observa Value Referen Units Interpr Notes Date tion ce etation Range Albumin/G 1.1 - 1.8 No Low No Sep 26 lobulin informati informati 2017 2:05 [Mass on in on in PM ratio] in source source Serum or data data Plasma Albumin 3.4 - 5.0 gm/dL Low No Sep 26 [Mass/vol informati 2017 2:05 ume] in on in PM Serum or source Plasma data Alkaline 46 - 116 U/L Normal No Sep 26 phosphata informati 2017 2:05 se on in PM [Enzymati source c data activity/ volume] in Serum or Plasma Bilirubin 0.2 - 1.0 mg/dL Normal No Sep 26 .total informati 2017 2:05 [Mass/vol on in PM ume] in source Serum or data Plasma Urea 7 - 18 mg/dL Normal No Sep 26 nitrogen informati 2017 2:05 [Mass/vol on in PM ume] in source Serum or data Plasma Calcium 8.5 - mg/dL High No Sep 26 [Mass/vol 10.1 informati 2017 2:05 ume] in on in PM Serum or source Plasma data Chloride 98 - 107 mmoL/L Normal No Sep 26 [Moles/vo informati 2017 2:05 lume] in on in PM Serum or source Plasma data Carbon 21.0 - mmoL/L Normal No Sep 26 dioxide, 32.0 informati 2016 2:05 total on in PM [Moles/vo source lume] in data Serum or Plasma Creatinin 0.55 - mg/dL High No Sep 26 e 1.02 informati 2017 2:05 [Mass/vol on in PM ume] in source Serum or data Plasma Creatinin 50 - 200 ML/MIN Normal No Sep 26 e renal informati 2016 2:05 clearance on in PM source predicted data by Cockcroft -Gault formula Estimated 59- ML/MIN Low REFERENCE Sep 26 RANGE: 2017 2:05 glomerula >60 PM r ML/MIN/1. filtratio 73 SQUARE n rate METERSIf (GF this patient is -A merican, then multiply theresult by 1.210. Globulin 1.3 - 3.2 gm/dL High No Sep 26 [Mass/vol informati 2016 2:05 ume] in on in PM Serum source data Glucose 74 - 106 mg/dL High No Sep [Mass/vol informati 2016 2:05 ume] in on in PM Serum or source Plasma data Potassium 3.5 - 5.1 mmoL/L Normal No Sep inform2016 2:05 [Moles/vo on in PM lume] in source Serum or data Plasma Sodium 136 - 145 mmoL/L Normal No Sep [Moles/vo informati 2016 2:05 lume] in on in PM Serum or source Plasma data Aspartate 15 - 37 U/L High No Sep informati 2016 2:05 aminotran on in PM sferase source [Enzymati data c activity/ volume] in Serum or Plasma Alanine 12 - 78 U/L Normal No Sep aminotran informati 2016 2:05 sferase on in PM [Enzymati source c data activity/ volume] in Serum or Plasma Protein 6.4 - 8.2 gm/dL Normal No Sep 26 [Mass/vol informati 2016 2:05 ume] in on in PM Serum or source Plasma data CBC W Auto Differential panel in Blood Observa Value Referen Units Interpr Notes Date tion ce etation Range Granulocy 1.8 - 7.8 K/mm3 Normal No Sep 26 jennifer informati 2016 2:05 [#/volume on in PM ] in source Blood by data Automated count Granulocy 37.0 - % Normal No Sep 26 jennifer/100 80.0 informati 2017 2:05 leukocyte on in PM s in source Blood by data Automated count Hematocri 37.0 - % Normal No Sep 26 t [Volume 47.0 informati 2016 2:05 on in PM Fraction] source of Blood data Hemoglobi 12.2 - g/dL Normal No Sep 26 n 16.2 informati 2016 2:05 [Mass/vol on in PM ume] in source Blood data Lymphocyt 0.7 - 4.5 K/mm3 Normal No Sep 26 es informati 2017 2:05 [#/volume on in PM ] in source Unspecifi data ed specimen by Automated count Lymphocyt 10 - 50.0 % Normal No Sep 26 es informati 2017 2:05 [#/volume on in PM ] in source Unspecifi data ed specimen by Automated count Erythrocy 27 - 31.2 pg Normal No Sep 26 te mean informati 2017 2:05 corpuscul on in PM ar source hemoglobi data n [Entitic mass] Erythrocy 31.8 - g/dl Low No Sep 26 te mean 35.4 informati 2016 2:05 corpuscul on in PM ar source hemoglobi data n concentra tion [Mass/vol ume] by Automated count Erythrocy 82.2 - fL Normal No Sep 26 te mean 97.8 informati 2017 2:05 corpuscul on in PM ar volume source [Entitic data volume] by Automated count Monocytes 0.1 - 1.0 K/mm3 Normal No Sep 26 informati 2017 2:05 [#/volume on in PM ] in source Blood by data Automated count Monocytes 1.7 - 9.3 % Normal No Sep 26 /100 informati 2017 2:05 leukocyte on in PM s in source Blood by data Automated count Platelets 142 - 424 K/mm3 Normal No Sep 26 informati 2017 2:05 [#/volume on in PM ] in source Blood data Erythrocy 4.2 - 5.4 M/mm3 Normal No Sep 26 jennifer informati 2016 2:05 [#/volume on in PM ] in source Amniotic data fluid Erythrocy 11.5 - % Normal No Sep 26 te 17.5 informati 2016 2:05 distribut on in PM ion width source [Entitic data volume] by Automated count Leukocyte 4.8 - K/mm3 Normal No Sep 26 s 10.8 informati 2016 2:05 [#/volume on in PM ] in source Blood data Choriogonadotropin.beta subunit [Units] in 24 hour Urine Observa Value Referen Units Interpr Notes Date tion ce etation Range Choriogon NEG No No Meghana Apr 22 adotropin informati informati 2017 9:10 .beta on in on in AM subunit source source [Units] data data in 24 hour Urine Amylase [Enzymatic activity/volume] in Serum or Plasma Observa Value Referen Units Interpr Notes Date tion ce etation Range Amylase 25 - 115 U/L Normal No Apr 20 [Enzymati informati 2017 2:29 c on in PM activity/ source volume] data in Serum or Plasma Comprehensive metabolic 2000 panel in Serum or Plasma Observa Value Referen Units Interpr Notes Date tion ce etation Range Albumin/G 1.1 - 1.8 No Low No Apr 20 lobulin informati informati 2016 2:29 [Mass on in on in PM ratio] in source source Serum or data data Plasma Albumin 3.4 - 5.0 gm/dL Normal No Apr 20 [Mass/vol informati 2016 2:29 ume] in on in PM Serum or source Plasma data Alkaline 46 - 116 U/L Normal No Apr 20 phosphata informati 2016 2:29 se on in PM [Enzymati source c data activity/ volume] in Serum or Plasma Bilirubin 0.2 - 1.0 mg/dL Normal No Apr 20 .total informati 2016 2:29 [Mass/vol on in PM ume] in source Serum or data Plasma Urea 7 - 18 mg/dL Normal No Apr 20 nitrogen informati 2016 2:29 [Mass/vol on in PM ume] in source Serum or data Plasma Calcium 8.5 - mg/dL High No Apr 20 [Mass/vol 10.1 informati 2017 2:29 ume] in on in PM Serum or source Plasma data Chloride 98 - 107 mmoL/L Normal No Apr 20 [Moles/vo informati 2016 2:29 lume] in on in PM Serum or source Plasma data Carbon 21.0 - mmoL/L Normal No Apr 20 dioxide, 32.0 informati 2017 2:29 total on in PM [Moles/vo source lume] in data Serum or Plasma Creatinin 0.55 - mg/dL Normal No Apr 20 e 1.02 informati 2017 2:29 [Mass/vol on in PM ume] in source Serum or data Plasma Estimated 59- ML/MIN No REFERENCE Apr 20 informati RANGE: 2017 2:29 glomerula on in >60 PM r source ML/MIN/1. filtratio data 73 SQUARE n rate METERSIf (GF this patient is -A merican, then multiply theresult by 1.210. Globulin 1.3 - 3.2 gm/dL High No Apr 20 [Mass/vol informati 2016 2:29 ume] in on in PM Serum source data Glucose 74 - 106 mg/dL High No Apr 20 [Mass/vol informati 2016 2:29 ume] in on in PM Serum or source Plasma data Potassium 3.5 - 5.1 mmoL/L Normal No Apr 20 inform2016 2:29 [Moles/vo on in PM lume] in source Serum or data Plasma Sodium 136 - 145 mmoL/L Normal No Apr 20 [Moles/vo informati 2016 2:29 lume] in on in PM Serum or source Plasma data Aspartate 15 - 37 U/L High No Apr 20 inform2016 2:29 aminotran on in PM sferase source [Enzymati data c activity/ volume] in Serum or Plasma Alanine 12 - 78 U/L Normal No Apr 20 aminotran inform2016 2:29 sferase on in PM [Enzymati source c data activity/ volume] in Serum or Plasma Protein 6.4 - 8.2 gm/dL Normal No Apr 20 [Mass/vol informati 2016 2:29 ume] in on in PM Serum or source Plasma data Lipase [Enzymatic activity/volume] in Serum or Plasma Observa Value Referen Units Interpr Notes Date tion ce etation Range Lipase 73 - 393 U/L Normal No Apr 20 [Enzymati informati 2016 2:29 c on in PM activity/ source volume] data in Serum or Plasma CBC W Auto Differential panel in Blood Observa Value Referen Units Interpr Notes Date tion ce etation Range Basophils 0 - 0.2 K/MM3 Normal No Apr 20 inform2016 2:29 [#/volume on in PM ] in source Blood by data Automated count Basophils 0.1 - 2.0 % Normal No Apr 20 /100 informati 2016 2:29 leukocyte on in PM s in source Blood by data Automated count Eosinophi 0.0 - 0.4 K/mm3 Normal No Apr 20 ls informati 2016 2:29 [#/volume on in PM ] in source Blood by data Automated count Eosinophi 0.1 - % Normal No Apr 20 ls/100 12.0 informati 2017 2:29 leukocyte on in PM s in source Blood by data Automated count Granulocy 1.8 - 7.8 K/mm3 Normal No Apr 20 jennifer informati 2016 2:29 [#/volume on in PM ] in source Blood by data Automated count Granulocy 37.0 - % Normal No Apr 20 jennifer/100 80.0 informati 2017 2:29 leukocyte on in PM s in source Blood by data Automated count Hematocri 37.0 - % Normal No Apr 20 t [Volume 47.0 informati 2016 2:29 on in PM Fraction] source of Blood data Hemoglobi 12.2 - g/dL Normal No Apr 20 n 16.2 informati 2017 2:29 [Mass/vol on in PM ume] in source Blood data Lymphocyt 0.7 - 4.5 K/mm3 Normal No Apr 20 es informati 2016 2:29 [#/volume on in PM ] in source Unspecifi data ed specimen by Automated count Lymphocyt 10 - 50.0 % Normal No Apr 20 es informati 2016 2:29 [#/volume on in PM ] in source Unspecifi data ed specimen by Automated count Erythrocy 27 - 31.2 pg Normal No Apr 20 te mean informati 2017 2:29 corpuscul on in PM ar source hemoglobi data n [Entitic mass] Erythrocy 31.8 - g/dl Low No Apr 20 te mean 35.4 informati 2016 2:29 corpuscul on in PM ar source hemoglobi data n concentra tion [Mass/vol ume] by Automated count Erythrocy 82.2 - fl Normal No Apr 20 te mean 97.8 informati 2017 2:29 corpuscul on in PM ar volume source [Entitic data volume] by Automated count Monocytes 0.1 - 1.0 K/mm3 Normal No Apr 20 informati 2017 2:29 [#/volume on in PM ] in source Blood by data Automated count Monocytes 1.7 - 9.3 % Normal No Apr 20 / informati 2017 2:29 leukocyte on in PM s in source Blood by data Automated count Platelet 7.4 - fl Normal No Apr 20 mean 10.4 informati 2016 2:29 volume on in PM [Entitic source volume] data in Blood by Automated count Platelets 142 - 424 K/mm3 Normal No Apr 202016 2:29 [#/volume on in PM ] in source Blood data Erythrocy 4.2 - 5.4 M/mm3 Normal No Apr 20 jennifer 2016 2:29 [#/volume on in PM ] in source Amniotic data fluid Erythrocy 11.5 - % Normal No Apr 20 te 17.5 2016 2:29 distribut on in PM ion width source [Entitic data volume] by Automated count Leukocyte 4.8 - K/MM3 Normal No Apr 20 s 10.8 2016 2:29 [#/volume on in PM ] in source Blood data CBC W Auto Differential panel in Blood Observa Value Referen Units Interpr Notes Date tion ce etation Range Basophils 0 - 0.2 K/MM3 Normal No Apr 152016 [#/volume on in 10:30 PM ] in source Blood by data Automated count Basophils 0.1 - 2.0 % Normal No Apr 152016 leukocyte on in 10:30 PM s in source Blood by data Automated count Eosinophi 0.0 - 0.4 K/mm3 Normal No Apr 15 ls 2016 [#/volume on in 10:30 PM ] in source Blood by data Automated count Eosinophi 0.1 - % Normal No Apr 15 ls/100 12.0 2016 leukocyte on in 10:30 PM s in source Blood by data Automated count Granulocy 1.8 - 7.8 K/mm3 Normal No Apr 15 jennifer 2016 [#/volume on in 10:30 PM ] in source Blood by data Automated count Granulocy 37.0 - % Normal No Apr 15 jennifer/100 80.0 2016 leukocyte on in 10:30 PM s in source Blood by data Automated count Hematocri 37.0 - % Normal No Apr 15 t [Volume 47.0 2016 on in 10:30 PM Fraction] source of Blood data Hemoglobi 12.2 - g/dL No No Apr 15 n 16.2 ati 2016 [Mass/vol on in on in 10:30 PM ume] in source source Blood data data Lymphocyt 0.7 - 4.5 K/mm3 Normal No Apr 15 es 2016 [#/volume on in 10:30 PM ] in source Unspecifi data ed specimen by Automated count Lymphocyt 10 - 50.0 % Normal No Apr 15 es 2016 [#/volume on in 10:30 PM ] in source Unspecifi data ed specimen by Automated count Erythrocy 27 - 31.2 pg Normal No Apr 15 te mean 2016 corpuscul on in 10:30 PM ar source hemoglobi data n [Entitic mass] Erythrocy 31.8 - g/dl Normal No Apr 15 te mean 35.4 2016 corpuscul on in 10:30 PM ar source hemoglobi data n concentra tion [Mass/vol ume] by Automated count Erythrocy 82.2 - fl Normal No Apr 15 te mean 97.8 2016 corpuscul on in 10:30 PM ar volume source [Entitic data volume] by Automated count Monocytes 0.1 - 1.0 K/mm3 Normal No Apr 152016 [#/volume on in 10:30 PM ] in source Blood by data Automated count Monocytes 1.7 - 9.3 % Normal No Apr 15 /100 2016 leukocyte on in 10:30 PM s in source Blood by data Automated count Platelet 7.4 - fl Normal No Apr 15 mean 10.4 2016 volume on in 10:30 PM [Entitic source volume] data in Blood by Automated count Platelets 142 - 424 K/mm3 Normal No Apr 152016 [#/volume on in 10:30 PM ] in source Blood data Erythrocy 4.2 - 5.4 M/mm3 Normal No Apr 15 jennifer 2016 [#/volume on in 10:30 PM ] in source Amniotic data fluid Erythrocy 11.5 - % Normal No Apr 15 te 17.5 2016 distribut on in 10:30 PM ion width source [Entitic data volume] by Automated count Leukocyte 4.8 - K/MM3 Normal No Apr 15 s 10.8 2016 [#/volume on in 10:30 PM ] in source Blood data Amylase [Enzymatic activity/volume] in Serum or Plasma Observa Value Referen Units Interpr Notes Date tion ce etation Range Amylase 25 - 115 U/L Normal No Apr 15 [Enzymati 2016 c on in 10:30 PM activity/ source volume] data in Serum or Plasma Comprehensive metabolic 2000 panel in Serum or Plasma Observa Value Referen Units Interpr Notes Date tion ce etation Range Albumin/G 1.1 - 1.8 No Low No Apr 15 lobulin informati informati 2016 [Mass on in on in 10:30 PM ratio] in source source Serum or data data Plasma Albumin 3.4 - 5.0 gm/dL Low No Apr 15 [Mass/vol informati 2017 ume] in on in 10:30 PM Serum or source Plasma data Alkaline 46 - 116 U/L Normal No Apr 15 phosphata informati 2016 se on in 10:30 PM [Enzymati source c data activity/ volume] in Serum or Plasma Bilirubin 0.2 - 1.0 mg/dL Normal No Apr 15 .total informati 2016 [Mass/vol on in 10:30 PM ume] in source Serum or data Plasma Urea 7 - 18 mg/dL Normal No Apr 15 nitrogen informati 2016 [Mass/vol on in 10:30 PM ume] in source Serum or data Plasma Calcium 8.5 - mg/dL High No Apr 15 [Mass/vol 10.1 informati 2016 ume] in on in 10:30 PM Serum or source Plasma data Chloride 98 - 107 mmoL/L High No Apr 15 [Moles/vo informati 2017 lume] in on in 10:30 PM Serum or source Plasma data Carbon 21.0 - mmoL/L Normal No Apr 15 dioxide, 32.0 informati 2016 total on in 10:30 PM [Moles/vo source lume] in data Serum or Plasma Creatinin 0.55 - mg/dL Normal No Apr 15 e 1.02 informati 2016 [Mass/vol on in 10:30 PM ume] in source Serum or data Plasma Creatinin 50 - 200 ML/MIN Normal No Apr 15 e renal informati 2017 clearance on in 10:30 PM source predicted data by Cockcroft -Gault formula Estimated 59- ML/MIN No REFERENCE Apr 15 informati RANGE: 2017 glomerula on in >60 10:30 PM r source ML/MIN/1. filtratio data 73 SQUARE n rate METERSIf (GF this patient is -A merican, then multiply theresult by 1.210. Globulin 1.3 - 3.2 gm/dL High No Apr 15 [Mass/vol informati 2017 ume] in on in 10:30 PM Serum source data Glucose 74 - 106 mg/dL High No Apr 15 [Mass/vol informati 2016 ume] in on in 10:30 PM Serum or source Plasma data Potassium 3.5 - 5.1 mmoL/L Normal POTASSIUM Apr 15January [Moles/vo FALSELY 10:30 PM lume] in ELEVATED Serum or DUE TO Plasma SLIGHT HEMOLYSIS Sodium 136 - 145 mmoL/L Normal No Apr 15 [Moles/vo informati 2016 lume] in on in 10:30 PM Serum or source Plasma data Aspartate 15 - 37 U/L High AST JanuaryApr 152016 aminotran FALSELY 10:30 PM sferase ELEVATED [Enzymati DUE TO c SLIGHT activity/ HEMOLYSIS volume] in Serum or Plasma Alanine 12 - 78 U/L Normal No Apr 15 aminotran informati 2016 sferase on in 10:30 PM [Enzymati source c data activity/ volume] in Serum or Plasma Protein 6.4 - 8.2 gm/dL Normal No Apr 15 [Mass/vol informati 2016 ume] in on in 10:30 PM Serum or source Plasma data Lipase [Enzymatic activity/volume] in Serum or Plasma Observa Value Referen Units Interpr Notes Date tion ce etation Range Lipase 73 - 393 U/L Normal No Apr 15 [Enzymati informati 2016 c on in 10:30 PM activity/ source volume] data in Serum or Plasma Choriogonadotropin.beta subunit [Units] in 24 hour Urine Observa Value Referen Units Interpr Notes Date tion ce etation Range Choriogon NEG No No No Apr 15 adotropin informati informati informati 2016 .beta on in on in on in 10:13 PM subunit source source source [Units] data data data in 24 hour Urine Thyroxine (T4) [Mass/volume] in Serum or Plasma Observa Value Referen Units Interpr Notes Date tion ce etation Range Thyroxine 4.7 - ug/dl Normal No Mar 12 (T4) 13.3 informati 2016 [Mass/vol on in 10:24 AM ume] in source Serum or data Plasma Thyrotropin [Units/volume] in Serum or Plasma Observa Value Referen Units Interpr Notes Date tion ce etation Range Thyrotrop 0.358 - uIU/ml High No Mar 12 in 3.740 informati 2016 [Units/vo on in 10:24 AM lume] in source Serum or data Plasma
--- OUTSIDE RECORDS SUMMARY | 2017-07-08 20:05 | External Medical Summary Rpt ---
[...] IS Plasma CONSIDERE D LEGALLYIN TOXICATED UNDER [facility] LAW. Comprehensive metabolic 2000 panel in Serum [...]
--- OUTSIDE RECORDS SUMMARY | 2017-07-08 20:45 | External Medical Summary Rpt ---
Author Author , CESAR Organization CESAR Address Unknown Phone [email or web address] Team Providers Care Miller Head Name Role Phone ABSNER MILAGROS, ABSNER Unavailable Unavailable MILAGROS [employer] Unavailable Unavailable INC, [employer] Unavailable Unavailable INC, [employer] ALLRAN JR, ALLRAN JR Unavailable Unavailable AYOOB AND, AYOOB AND Unavailable Unavailable BEINEKE, BEINEKE Unavailable Unavailable STACY, STACY Unavailable Unavailable STACY ALL, STACY ALL Unavailable [facility] Unavailable Unavailable DEPARTMENT, [facility] Unavailable Unavailable DEPARTMENT, [facility] MÁRQUEZ JAM, MÁRQUEZ JAM Unavailable Unavailable CORTEZ DESHAUN, Unavailable Unavailable DIEGO MAC BIT SHARPENER OPERATOR, BUBBA Unavailable Unavailable BIT SHARPENER OPERATOR BUBBA BIT SHARPENER OPERATOR, BUBBA Unavailable Unavailable BIT SHARPENER OPERATOR [facility], Unavailable Unavailable [facility] CASTILLO YASH, CASTILLO Unavailable Unavailable YASH [facility] Unavailable Unavailable [facility], [facility] Unavailable Unavailable [facility] [place], [facility] МАРИЯ GAR, МАРИЯ Unavailable Unavailable GAR NICO ALEJANDRA, Unavailable Unavailable NICO ALEJANDRA MICHELLE, MICHELLE Unavailable Unavailable MICHELLE PHI, Unavailable Unavailable MICHELLE PHI MICHELLE PHI, Unavailable Unavailable MICHELLE PHI MERRITT SHIRA, MERRITT SHIRA Unavailable Unavailable SOLOMON ISLANDER DESHAUN, SOLOMON ISLANDER Unavailable Unavailable DESHAUN FAUGHN LAO, FAUGHN Unavailable Unavailable LAO FEDDOCK CHRISTIANO, FEDDOCK Unavailable Unavailable CHRISTIANO FEEBACK, FEEBACK Unavailable Unavailable FRYMAN, FRYMAN Unavailable Unavailable YOKO, YOKO Unavailable Unavailable YOKO JAMES, YOKO Unavailable Unavailable JAMES [facility] Unavailable Unavailable INC, [facility] Unavailable Unavailable HOSPITAL P, [facility] P [facility], Unavailable Unavailable [facility] DIVYA MAR, STOKES Unavailable Unavailable MAR GRAMAJO, GRAMAJO Unavailable Unavailable GRAMAJO WANDA, GRAMAJO WANDA Unavailable Unavailable [facility] Un[facility] Un[facility], [facility] Un[facility], [facility] MERRITT JR, MERRITT JR Unavailable Unavailable MERRITT JR DWI, MERRITT Unavailable Unavailable JR DWI MAREK FAYETTE URBAN Unavailable Unavailable COGOVT, MAREK FAYETTE URBAN COGOVT MICHAELS MAR, MICHAELS Unavailable Unavailable MAR JERAMIE JOSÉ, JERAMIE Unavailable Unavailable JOSÉ [facility] Unavailable Unavailable EMS, [facility] Unavailable [facility]available EMS, [facility] PARK, PARK Unavailable Unavailable [facility], Unavailable Unavailable PLL[facility], [...] PAT SWINEY PAT, SWINEY Unavailable Unavailable PAT [facility] Unavailable Unavailable HOSPITALS, [facility], Unavailable Unavailable [facility] VORKPOR NICOLÁS, VORKPOR Unavailable Unavailable NICOLÁS WEST KAYLEE, WEST KAYLEE Unavailable Unavailable Purpose Continuity of Care Document - 02-14-2003 through 2016 Problems Code Diagnosis DOS Provider Status K811 CHRONIC 04-22-2017 [facility] CHOLECYSTIT PHYSICIANS IS GROUP K819 CHOLECYSTIT 04-22-2017 COMMUNITY IS ANESTH OF UNSPECIFIED THE BLUE K828 OTHER 04-22-2017 [facility] SPECIFIED PHYSICIANS DISEASES OF GROUP GALLBLADDER E74104 ENCOUNTER 04-20-2017 [place] FOR [facility] PREPROCEDUR INC AL LABORATORY [...] PAIN MEM [facility] INC E663 OVERWEIGHT 02-13-2017 [facility] G629 POLYNEUROPA 02-13-2017 [facility] THY PHYSICIANS UNSPECIFIED GROUP M9983 OTHER 02-13-2017 [facility] BIOMECHANIC PHYSICIANS AL LESIONS GROUP OF LUMBAR REGION M546 PAIN IN 02-10-2017 [facility]ACIC [facility], SPINE PLLC R51 HEADACHE 02-05-2017 [facility]C C539 MALIGNANT 01-22-2017 [place] NEOPLASM OF MEDICAL CERVIX IMAGING ASS UTERI UNSPECIFIED K219 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-22-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 P WITHOUT ESOPHAGITIS M542 CERVICALGIA 01-22-2017 [place] [facility] N938 OTHER SPEC 01-22-2017 [facility] ABNORMAL PHYSICIANS, UTERINE & PLLC VAGINAL BLEEDING N939 ABNORMAL 01-22-2017 [place] UTERINE & MEDICAL VAGINAL IMAGING ASS BLEEDING UNSPECIFIED R55 SYNCOPE AND 01-22-2017 [place] COLLAPSE [facility]ICAL IM[facility]ING ASS J9668NT UNSPECIFIED 01-22-2017 [place] INJURY OF MEDICAL HEAD IMAGING ASS INITIAL ENCOUNTER Z105ZPF UNSPECIFIED 01-22-2017 [place] INJURY OF MEDICAL NECK IMAGING ASS INITIAL ENCOUNTER Z720 TOBACCO USE 01-22-2017 [facility] P Z8541 PERSONAL 01-22-2017 [facility] HISTORY PHYSICIANS, MALIGNANT PLL NEOPLASM CERVIX UTERI I11529 PAIN IN 01-16-2017 [place] RIGHT FOOT MEDICAL IMAGING ASS T5243OB CONTUSION 01-16-2017 [place] OF RIGHT PHYSICIANS, FOOT PLLC INITIAL ENCOUNTER F10974Q UNSPECIFIED 01-16-2017 [employer] RIGHT FOOT S INC INITIAL ENCOUNTER G4762 SLEEP 01-14-2017 [facility] RELATED LEG PHYSICIANS CRAMPS GROUP M5127 OTH 01-14-2017 [place] INTERVERTEB MEDICAL RAL DISC IMAGING ASS DISPLACEMEN T LS REGION N342 OTHER 01-08-2017 [place] URETHRITIS PHYSICIANS, [facility] R1030 LOWER 01-08-2017 [place] ABDOMINAL MEDICAL PAIN IMAGING ASS UNSPECIFIED E54045 MIGRAINE 01-04-2017 [place] W/O AURA PHYSICIANS, NOT INTRACT PLLC W/O STAT MIGRAIN D128 BENIGN 12-30-2016 [facility] NEOPLASM OF PHYSICIANS RECTUM GROUP K6289 OTHER 12-30-2016 COMMUNITY SPECIFIED ANESTH OF DISEASES OF THE BLUE ANUS AND RECTUM K648 OTHER 12-30-2016 [facility] HEMORRHOIDS PHYSICIANS GROUP K649 UNSPECIFIED 12-30-2016 COMMUNITY ANESTH OF HEMORRHOIDS THE BLUE K629 DISEASE OF 12-18-2016 [facility] ANUS AND PHYSICIANS RECTUM GROUP UNSPECIFIED E039 HYPOTHYROID 11-05-2016 [facility] ISM PHYSICIANS UNSPECIFIED GROUP Z0000 ENCOUNTER 10-15-2016 [facility] GEN ADULT PHYSICIANS MED EXAM GROUP W/O ABNORMAL FIND [id number] STRAIN 10-13-2016 [place] MUSCLE PHYSICIANS, FASCIA & PLLC TENDON LOW BACK INITIAL B10911X OTH [facility] 10-01-2016 [facility] COMP OTH ANESTH OF CARD VASC THE BLUE DEVC IMPL INIT ENC Z452 ENCOUNTER 10-01-2016 [facility] ADJUSTMENT& PHYSICIANS MGMT GROUP VASCULAR ACCESS DEVICE Z789 OTHER 09-29-2016 [facility] SPECIFIED PHYSICIANS HEALTH GROUP STATUS C569 MALIGNANT 09-05-2016 [facility] NEOPLASM OF MEDICAL IMAGING ASS UNSPECIFIED OVARY C7989 SECONDARY 09-05-2016 [place] MALIGNANT [facility] NEOPLASM INC OT SPECIFIED SITES C63837 MIGRAINE 08-20-2016 [place] W/AURA NOT PHYSICIANS, INTRACT PLLC W/STATUS MIGRAINOSUS R05 COUGH 03-18-2016 [facility] P R0602 SHORTNESS 03-18-2016 [facility] Y01388 MIGRAINE 02-04-2016 [place] UNS NOT PHYSICIANS, INTRACT W/O PLLC STATUS MIGRAINOSUS R079 CHEST PAIN 12-01-2015 [place] UNSPECIFIED MEDICAL IMAGING ASS E20155Z PAIN D/T 08-30-2015 [facility] IMPL & GRAFTS INITIAL Z04241C OTH SPEC 08-30-2015 [facility] IMPL GFT INIT ENC R1012 LEFT UPPER 06-30-2015 BUBBA BIT SHARPENER OPERATOR QUADRANT PAIN R109 UNSPECIFIED 06-30-2015 [place] ABDOMINAL MEDICAL PAIN IMAGING ASS R197 DIARRHEA 06-30-2015 BUBBA BIT SHARPENER OPERATOR UNSPECIFIED 1809 MALIGNANT 04-25-2015 [facility] NEOPLASM PHI CERVIX UTERI UNSPECIFIED SITE 15417 SOLITARY 04-11-2015 [place] PULMONARY MEDICAL NODULE IMAGING ASS V1041 PERSONAL 04-11-2015 [place] HISTORY MEDICAL MALIGNANT IMAGING ASS NEOPLASM CERVIX UTERI V711 OBSERVATION 04-11-2015 [place] FOR MEDICAL SUSPECTED IMAGING ASS MALIGNANT NEOPLASM 1749 MALIGNANT 02-28-2015 [place] NEOPLASM OF [facility] P UNSPECIFIED SITE 4660 ACUTE 01-24-2015 [place] BRONCHITIS [facility] P 1991 OTHER 01-16-2015 [facility] MALIGNANT PHYSICIANS NEOPLASM OF GROUP UNSPECIFIED SITE V5881 FITTING AND 01-16-2015 [place] ADJUSTMENT MEDICAL OF IMAGING ASS VASCULAR CATHETER 2331 CARCINOMA 01-12-2015 [place] IN SITU [facility] P UTERI 29840 SHORTNESS 01-06-2015 [place] OF BREATH MEDICAL IMAGING ASS 15837 NAUSEA WITH 01-06-2015 [facility] VOMITING [facility] P E9331 ANTINEOPLAS 01-06-2015 [facility] TIC-IMMUNOS [facility] P ADVRSE EFF TX USE V5811 ENCOUNTER 01-02-2015 [facility] ANTINEOPLAS TIC CHEMOTHERAP Y 6268 OTH D/O 12-18-2014 [facility] N&OTH ABN BLEED FE GNT TRACT 5718 OTHER 12-01-2014 [place] [facility]RON[facility] NON[facility]OUNDATION C LIVER DISEASE 5939 UNSPECIFIED 12-01-2014 [place] [facility] DISORDER SERV OF KIDNEY FOUNDATION AND URETER 7856 ENLARGEMENT 12-01-2014 [facility] NODES V580 RADIOTHERAP 10-30-2014 [facility] 179 MALIGNANT 10-23-2014 [place] NEOPLASM OF [facility] UTERUS PART UNSPECIFIED 1800 MALIGNANT 10-19-2014 [place] [facility] NEOPLASM OF SERV ENDOCERVIX FOUNDATION 1968 SEC&UNSPEC 10-18-2014 [facility] NEOPLASM NODES MULTIPLE SITES 2859 UNSPECIFIED 10-04-2014 [facility] 6238 OTHER 10-04-2014 [facility] NONINFLAMMA TORY DISORDER VAGINA 59482 ABDOMINAL 10-04-2014 [place] [facility] PAIN, SERV UNSPECIFIED FOUNDATION SITE 86336 ABDOMINAL 10-04-2014 [facility] OTHER HOSPITAL SPECIFIED SITE V153 PERS HX 10-04-2014 [place] 7840 HEADACHE 09-20-2014 [place] [facility] 1820 MALIGNANT 09-08-2014 [facility] UTERI EXCEPT ISTHMUS 6262 EXCESSIVE 09-08-2014 [facility]PITAL MENSTRUATIO N 1808 MALIGNANT 09-01-2014 [place] [facility] NEOPLASM SERV OTHER FOUNDATION SPECIFIED SITES CERVIX 49649 ABD/PELVIC 08-30-2014 [facility] MASS/LUMP OTH SPEC SITE 58386 NONGONOCOCC 08-15-2014 [facility] URETHRITIS DEPARTMENT DUE CHLAMYDTRAC HOMATIS 11017 MORBID 08-09-2014 [facility] ANESTHESIA PSC 6269 UNS D/O 08-07-2014 [facility] N&OTH ABN BLEED FE GNT TRACT V7241 08-07-2014 [place] [facility] EXAMINATION SERV OR TEST FOUNDATION NEGATIVE RESULT 4590 UNSPECIFIED 08-03-2014 [facility] 6259 UNSPEC 08-03-2014 [facility] [place] [facility] W/FEMALE GENITAL ORGANS 1123 CANDIDIASIS 02-09-2014 SW[facility] PAT OF SKIN AND NAILS 71970 ANAL OR 02-09-2014 [facility] PAT RECTAL PAIN [...] 09 10 60 30 00 HO Ac TX 09 -1 -0 .0 00 ME ti [...] 17 17 [address] MATT MA 12 CY 5 MG OF CA [...] 08 09 60 30 00 HO Ac TX 09 -1 -0 .0 00 ME ti OP 70 1- 8- 00 06 TO ve IO 87 20 20 09 WN N 80 17 17 05 HC 3 76 PH L AR SR MA CY 15 0 OF MG CY TA NT BL HI ET AN A TX 68 07 08 14 4 00 HO [...] 07 08 60 30 00 HO Ac TX 09 -1 -0 .0 00 ME ti [...] 06 07 60 30 00 HO Ac TX 00 -1 -1 .0 00 ME ti [...] 17 17 30 TA 5 04 PH MO AR N- MA CA CY FF OF [...] 20 9- 6- 00 06 TO ve TX 05 20 20 08 WN AM 35 [...] 1 40 PH CE AR TA MA MO CY NO PH #3 EN 93 8 5- 32 5 NA 68 05 06 14 7 00 HO Ac TX 46 -1 -0 .0 00 ME ti [...] 2 67 PH CE AR TA MA MO CY NO PH OF EN CY 5- [...] 2 26 PH CE AR TA MA MO CY NO PH OF EN CY 5- NT 32 HI 5 AN A CI 16 04 05 14 7 00 HO Ac TX 57 -1 -1 .0 00 ME ti [...] 2 24 PH CE AR TA MA MO CY NO PH OF EN CY 5- [...] 2 34 PH CE AR TA MA MO CY NO PH OF EN CY 5- NT 32 HI 5 AN A CY 00 01 02 15 5 00 HO Ac CL 60 -1 -1 .0 00 ME ti OB 33 7- 0- 00 06 TO ve EN 07 20 20 07 WN ZA 93 17 17 96 TX 2 42 PH IN AR E MA 10 CY MG OF TA CY BL NT ET HI AN A TX 59 01 02 10 5 00 HO Ac ED 74 -1 -1 .0 00 ME ti NI 60 7- 0- 00 06 TO ve SO 17 20 20 07 WN NE 50 17 17 96 9 43 PH 20 AR MA MG CY TA OF BL ET CY NT HI AN A TX 68 01 02 12 30 00 HO [...] 5 73 AR CE MA TA CY MO NO PH EN 5- 32 5 OM 68 12 01 30 30 00 HO Ac EP 46 -2 -1 .0 00 ME ti RA 20 1- 3- 00 06 TO ve ZO 39 20 20 07 WN LE 71 16 [address] AR MA 40 CY MG OF CA CY PS NT UL HI E AN A Results Labs Lab Lab Date Result Refere Interp Status Commen Order Detail nces retati t Range on Drugs identified in Urine by Screen method (06-28-2017 06:15) Ampheta NEGATIV <1000 complet mine 017 E ed [Presen 06:15 ce] in Urine by Screen method 11- NEGATIV <50 complet oxy 017 E ed delta-9 06:15 tetrahy drocann abinol [Presen ce] in Unspeci fied specime n Procedures Procedure DOS Code Location Performer Comment ANES 47975 [facility] FEEBACK INTRAPERI 7 ANESTH TONEAL OF THE UPPER BLUE ABDOMEN W/LAPS NOS LAPAROSCO 55441 SHARLA MAGDALENO PY SURG 7 [facility] CHOLECYST INC INC ECTOMY URINE 83146 SHARLA MAGDALENO 7 [facility] TEST INC INC [place] [address] SHARLA MAGDALENO AMYLASE 7 [facility] INC INC COLLECTIO 09417 SHARLA MAGDALENO N VENOUS 7 [facility] BLOOD INC INC VENIPUNCT URE BLOOD 18643 SHARLA MAGDALENO COUNT 7 [facility] COMPLETE INC INC AUTO&AUTO DIFRNTL WBC COMPREHEN 03918 SHARLA MAGDALENO SIVE 7 [facility] [place] [address] SHARLA MAGDALENO LIPASE 7 [facility] [place] [address] SHARLA MAGDALENO INFUSION 7 [facility] THERAPY/P INC INC ROPHYLAXI S /DX 1ST TO 1 HR THERAPEUT 32445 SHARLA MAGDALENO IC 7 [facility] INJECTION INC INC IV PUSH EACH NEW DRUG URNLS DIP 33867 SHARLA MAGDALENO 7 [facility] STICK/TAB INC INC [place] [address] SHARLA SHARLA LIPASE 7 [place] [address] SHARLA MAGDALENO ABDOMEN & 7 [facility] PELVIS INC INC W/O CONTRAST MATERIAL BLOOD 85352 SHARLA MAGDALENO COUNT 7 [facility]OS[facility] COMPLETE INC INC AUTO&AUTO DIFRNTL WBC COMPREHEN 40072 SHARLA SHARLA SIVE 7 [facility] [place] [address] SHARLA MAGDALENO AMYLASE 7 [facility] INC INC URINE 59346 SHARLA MAGDALENO 7 [facility] TEST INC INC VISUAL COLOR CMPRSN METHS HEPATOBIL 78378 [place] BEINEKE SYST 7 MEDICAL IMAG INC IMAGING GB ASS W/PHARMA INTERVENJ TECHNETIU A9537 SHARLA MAGDALENO M TC-99M 7 [facility] MEBROFENI INC INC N DX UP [place] [address] [place] [address] SHARLA MAGDALENO ABDOMINAL 7 [facility] REAL INC INC TIME W/[place] [address] SHARLA MAGDALENO THYROXINE 7 [facility] [place] [address] SHARLA MAGDALENO THYROID 7 [facility] STIMULATI INC INC NG HORMONE TSH COLLECTIO 10846 SHARLA MAGDALENO N VENOUS 7 [facility] BLOOD INC INC VENIPUNCT URE APPLICATI 25774 SHARLA MAGDALENO ON 7 [facility]OS[facility] MODALITY INC INC 1/> AREAS HOT/COLD PACKS APPL 35831 SHARLA MAGDALENO MODALITY 7 MEM H[facility]OS[facility] 1/> AREAS INC INC ULTRASOUN D EA 15 MIN THERAPEUT 15655 SHARLA MAGDALENO IC PX 1/> 7 [facility] AREAS INC INC EACH 15 MIN EXERCISES APPL 77766 SHARLA MAGDALENO MODALITY 7 [facility] H[facility] 1/> AREAS INC INC TRACTION MECHANICA L APPL 78757 SHARLA MAGDALENO MODALITY 7 [facility] 1/> AREAS INC INC ELEC STIMJ UNATTENDE D APPL 36265 SHARLA MAGDALENO MODALITY 7 MEM H[facility] 1/> AREAS INC INC TRACTION MECHANICA L APPL 53826 SHARLA MAGDALENO MODALITY 7 [facility] 1/> AREAS INC INC ELEC STIMJ UNATTENDE D THERAPEUT 05167 SHARLA MAGDALENO IC PX 1/> 7 [facility]OS[facility] AREAS INC INC EACH 15 MIN EXERCISES APPLICATI 78578 SHARLA MAGDALENO ON 7 [facility]OS[facility] MODALITY INC INC 1/> AREAS HOT/COLD PACKS PHYSICAL 74396 SHARLA MAGDALENO THERAPY 7 [facility] EVALUATIO INC INC N [place] [address] [place] [address] [place] REG[place] HEAD/BRAI 7 MEDICAL N W/O IMAGING CONTRAST ASS MATERIAL FINAL G9638 [place] STACY REPORTS 7 MEDICAL W/O DOC IMAGING 1/MORE ASS DOSE REDUCTION TECH FINAL G9638 [place] STACY REPORTS 7 MEDICAL W/O DOC IMAGING 1/MORE ASS DOSE REDUCTION TECH COMPREHEN 71681 SHARLA MAGDALENO SIVE 7 [facility] [place] [address] [facility] REGIS HEAD/BRAI 7 MEDICAL N W/O IMAGING CONTRAST ASS MATERIAL CREATINE 72896 SHARLA LINON KINASE MB 7 [facility] [place] [address] SHARLA MAGDALENO TROPONIN 7 [facility] QUANTITAT INC INC VINCENT BLOOD 50031 SHARLA MAGDALENO COUNT 7 [facility] COMPLETE INC INC AUTO&AUTO DIFRNTL WBC ECG 69566 SHARLA MAGDALENO ROUTINE 7 [facility] ECG INC INC W/LEAST 12 LDS TRCG ONLY W/O I&R FINAL RPT G9557 [facility] STACY CT/MRI 7 MEDICAL CHEST/NCK IMAGING /U/S NO ASS THR NOD<1.0 [place] [address] [facility] TRANSVAGI 7 MEDICAL [place] [address] MICHELLE STACY CERVICAL 7 MEDICAL SPINE W/O IMAGING CONTRAST ASS MATERIAL CREATINE 73862 SHARLA MAGDALENO KINASE 7 [facility]OS[facility] TOTAL INC INC ECG 24196 [place] GRAMAJO ROUTINE 7 PHYSICIAN ECG S, PLLC W/LEAST 12 LDS I&R ONLY RADEX 01309 MICHELLE STACY FOOT 7 MEDICAL COMPLETE IMAGING MINIMUM 3 ASS VIEWS CRTCHS E0114 ADVANCED ADVANCED UNDARM 7 TECHNOLOG TECHNOLOG OTH THAN IES INC IES INC WOOD PAIR PAD TIP&HNDGR IP MRI 17508 MICHELLE STACY SPINAL 7 MEDICAL CANAL IMAGING LUMBAR ASS W/O CONTRAST MATERIAL COLLECTIO 84270 [facility] FRYMAN N VENOUS 7 PHYSICIAN BLOOD S GROUP VENIPUNCT URE COMPREHEN 74201 SHARLA MAGDALENO SIVE 7 [facility] [address] SHARLA MAGDALNEO MAGNESIUM 7 [facility] H[facility] HOS[facility] INC INC 3D 06838 MICHELLE STACY RENDERING 7 MEDICAL W/INTERP IMAGING & ASS POSTPROCE SS SUPERVISI ON CULTURE 86315 SHARLA MAGDALENO BACTERIAL 7 [facility] INC INC QUANTTATI VE COLONY COUNT URINE FINAL G9638 MICHELLE STACY REPORTS 7 MEDICAL W/O DOC IMAGING 1/MORE ASS DOSE REDUCTION TECH FINAL G9551 MICHELLE STACY REPR ABD 7 MEDICAL IMAG STS IMAGING W/O ASS INCIDNT FND LES NTD: [place] [address] MICHELLE STACY ABDOMEN & 7 MEDICAL PELVIS IMAGING W/O ASS CONTRAST MATERIAL URNLS DIP 37544 SHARLA MAGDALENO 7 [facility] STICK/TAB INC INC LET REAGENT AUTO MICROSCOP Y THERAPEUT 33326 SHARLA MAGDALENO IC 7 [facility] INJECTION INC INC IV PUSH EACH NEW DRUG THER 15873 SHARLA MAGDALENO PROPH/DX 7 [facility] NJX IV INC INC PUSH SINGLE/1S T SBST/DRUG THER 36892 SHARLA MAGDALENO PROPH/DX 7 [facility] NJX EA INC INC SEQL IV PUSH SBST/DRUG FAC URINE 32666 SHARLA MAGDALENO 7 [facility] TEST INC INC VISUAL COLOR CMPRSN METHS ANES 12382 [facility] LOWER 7 ANESTH INTESTINE OF THE BLUE ENDOSCOPY DISTAL DUODENUM COLONOSCO 10296 SHARLA MAGDALENO PY FLX DX 7 [facility] W/COLLJ INC INC SPEC WHEN PFRMD APPLICATI 06114 SHARLA MAGDALENO ON 7 [facility] MODALITY INC INC 1/> AREAS HOT/COLD PACKS THERAPEUT 21183 SHARLA MAGDALENO IC PX 1/> 7 [facility] AREAS INC INC EACH 15 MIN EXERCISES APPL 23621 SHARLA MAGDALENO MODALITY 7 [facility] H[facility]OS[facility] 1/> AREAS INC INC ELEC STIMJ UNATTENDE D PHYSICAL 88279 SHARLA MAGDALENO THERAPY 7 [facility] EVALUATIO INC INC N MOD COMPLEX 30 MINS BLOOD 88995 SHARLA MAGDALENO COUNT 7 [facility] COMPLETE INC INC AUTO&[place] [address] SHARLA MAGDALENO FREE 7 [facility] [place] [address] SHARLA MAGDALENO THYROID 7 [facility] STIMULATI INC INC NG HORMONE TSH INF AGT G0432 SHARLA MAGDALENO AB DETECT 7 [facility] EIA TECH INC INC HIV-1&/HI V-2 SCR COLLECTIO 86628 SHARLA MAGDALENO N VENOUS 7 [facility] BLOOD INC INC VENIPUNCT URE COMPREHEN 33037 SHARLA MAGDALENO SIVE 7 [facility] METABOLIC INC INC PANEL HEPATITIS 50925 SHARLA MAGDALENO A 7 [facility] ANTIBODY INC INC HAAB RADEX 82962 [place] STACY SPINE 7 MEDICAL LUMBOSACR IMAGING AL 2/3 ASS VIEWS RADEX 34334 SHARLA MAGDALENO SPINE 7 [facility]OS[facility] LUMBOSACR INC INC AL MINIMUM 4 VIEWS HEPATITIS 50641 SHARLA MAGDALENO B CORE 7 [facility] [place] [address] SHARLA MAGDALENO HEPATITIS 7 [facility] B INC INC SURFACE ANTIGEN HEPATITIS 88588 SHARLA MAGDALENO C 7 [facility] ANTIBODY INC INC GONADOTRO 09062 SHARLA MAGDALENO PIN 7 [facility] CHORIONIC INC INC QUALITATI VE ANES 66407 [facility] INTEG 7 ANESTH EXTREMITI OF THE ES ANT BLUE TRUNK & PERINEUM NOS RMVL JAYJAY 74371 [facility] ALLRAN JR CTR VAD 7 PHYSICIAN W/SUBQ S GROUP PORT/CANDLE CUTTER CTR/PRPH INSJ BLOOD 98792 SHARLA MAGDALENO COUNT 7 [facility] COMPLETE INC INC AUTO&AUTO DIFRNTL WBC COLLECTIO 75546 SHARLA MAGDALENO N VENOUS 7 [facility] BLOOD INC INC VENIPUNCT URE BASIC 34164 SHARLA MAGDALENO METABOLIC 7 [facility] [address] [facility] ABDOMEN & 6 MEDICAL PELVIS IMAGING W/CONTRAS ASS T MATERIAL RADIOLOGI 12067 SHARLA Martinez EXAM 6 [facility] CHEST 2 INC INC VIEWS FRONTAL&L ATERAL THER 48566 SHARLA MAGDALENO PROPH/DX 6 [facility] NJX IV INC INC PUSH SINGLE/1S T SBST/DRUG ECG 54529 SHARLA MAGDALENO ROUTINE 6 [facility] ECG INC INC W/LEAST 12 LDS TRCG ONLY W/O I&R ECG 60257 SHARLA BANG JR ROUTINE 6 [facility] W/LEAST P 12 LDS I&R ONLY CREATINE 78132 SHARLA MAGDALENO KINASE 6 [facility] TOTAL INC INC RHYTHM 74306 SHARLA MAGDALENO ECG 1-3 6 [facility] LEADS INC INC TRACING ONLY W/O I&R CREATINE 34377 SHARLA MAGDALENO KINASE MB 6 [facility] FRACTION INC INC ONLY COMPREHEN 67971 SHARLA MAGDALENO SIVE 6 [facility] METABOLIC INC INC PANEL BLOOD 45688 SHARLA MAGDALENO COUNT 6 [facility] COMPLETE INC INC AUTO&[place] [address] SHARLA MAGDALENO TROPONIN 6 [facility] [place] [address] MICHELLE PERESUTCHER HEAD/BRAI 6 MEDICAL ALEJANDRA N W/O IMAGING CONTRAST ASS MATERIAL CT THORAX 18210 MICHELLE STACY ALL 6 MEDICAL W/CONTRAS IMAGING T ASS MATERIAL RADIOLOGI 44634 MICHELLE STACY ALL C EXAM 6 MEDICAL CHEST 2 IMAGING VIEWS ASS FRONTAL&L ATERAL PET 11191 [place] МАРИЯ IMAGING [address] SERV ATTENUATI FOUNDATIO ON SKULL N BASE MID-THIGH FLUORODEO [id number] [facility] XYGLUCOSE 5 Y Y F-18 FDG [facility] DX UP TO 45 [facility] INJECTION [id number] [place] 5 [facility] E E HCL [facility] 1 MG INJECTION [id number] [place] HEPARIN 5 HEALTH[facility] HEALTHCAR SODIUM E E PER 10 [facility] UNITS INJECTION [id number] [place] 5 [facility] HEALTHCAR CEFAZOLIN E E SODIUM [facility] 500 MG GLUCOSE 81340 [place] QUANTITAT 5 [facility] VINCENT BLOOD E E XCPT [facility] REAGENT STRIP BLOOD 14969 [place] [facility] COUNT 5 [facility] COMPLETE E E AUTOMATED [facility] RMVL JAYJAY 16110 [facility] CTR VAD 5 [facility] HEALTHCAR W/SUBQ E E PORT/CANDLE CUTTER [facility] CTR/PRPH INSJ INJECTION J1200 [facility] 5 HEALTHCAR HEALTHCAR DIPHENHYD E E RAMINE [facility] HCL UP TO 50 MG INJECTION J3010 [facility] FENTANYL 5 [facility]ALTH[facility] HEALTH[facility] CITRATE E E 0.1 MG [facility] INFUSION J7030 [facility] NORMAL 5 [facility] HEALTH[facility] SALINE E E SOLUTION [facility] 1000 CC COMPREHEN 62329 [facility] SIVE 5 [facility] HE[facility] METABOLIC E E PANEL [facility] FLUORO 00355 [facility] CENTRAL 5 [facility]ALTHCAR HEALTHCAR VENOUS E E ACCESS [facility] DEV PLACEMENT INSJ 86229 [facility] TUNNELED 5 [facility] HEALTH[facility] CTR VAD E E W/SUBQ [facility] PORT AGE 5 YR/> PORT C1788 [facility] INDWELLIN 5 HEALTHCAR HEALTHCAR G E E [facility] GUIDE C1769 [place] [facility] WIRE 5 [facility]ALTHCAR HEALTHCAR E E [facility] US VASC 17018 [facility] ACCESS 5 [facility]ALTHCAR SITS VSL E E [facility]Y [facility] NDL ENTRY PROTHROMB 04249 [facility] IN TIME 5 HEALTHCAR HEALTHCAR E E [facility]PITALS INJECTION J1644 [facility] HEPARIN 5 [facility]ALTHCAR HEALTHCAR SODIUM E E PER 1000 [facility] UNITS LOCM Q9967 [facility] [phone] 5 Y Y MG/ML HOSPITAL HOSPITAL [place] [address] [place] AYOOB AND ABDOMEN & 5 MEDICAL PELVIS SERV W/CONTRAS FOUNDATIO T N [place]ERIAL [facility] THORAX [address] [place] AYOOB AND 5 MEDICAL [place] [address] [place] STCAY ALL ABDOMEN & 5 MEDICAL PELVIS IMAGING W/[place] [address] SHARLA MAGDALENO ABDOMEN & 5 [facility] PELVIS INC INC W/CONTRAS T MATERIAL LOCM Q9967 SHARLA MAGDALENO [phone] 5 [facility] MG/ML INC INC IODINE CONCENTRA TION PER ML URNLS DIP 19369 [facility]LA MAGDALENO 5 [facility] STICK/TAB INC INC LET REAGENT AUTO MICROSCOP Y CT THORAX 26099 SHARLA MAGDALENO 5 [facility] W/CONTRAS INC INC T MATERIAL CULTURE 69700 SHARLA MAGDALENO BACTERIAL 5 [facility] INC INC QUANTTATI VE COLONY COUNT URINE INJECTION J1642 SHARLA MAGDALENO HEPARIN 5 [facility] SODIUM INC INC PER 10 UNITS INJECTION J1642 SHARLA MAGDALENO HEPARIN 5 [facility] SODIUM INC INC PER 10 UNITS BLOOD 65944 SHARLA MAGDALENO COUNT 5 [facility] COMPLETE INC INC AUTO&AUTO DIFRNTL WBC GRANISETR Q0166 SHARLA MAGDALENO ON HCL 1 5 [facility] MG ORL INC INC NOT >48 HR DOSE REGIMEN CHEMOTX 72400 SHARLA MAGDALENO ADMN IV 5 [facility] NFS TQ UP INC INC 1 HR SBST/DRUG COMPREHEN 98692 SHARLA MAGDALENO SIVE 5 [facility] METABOLIC INC INC PANEL CHEMOTHER 91402 SHARLA MAGDALENO APY ADMN 5 [facility] IV INC INC INFUSION TQ EA HR INJECTION J9267 SHARLA MAGDALENO 5 [facility]OS[facility] PACLITAXE INC INC L 1 MG CHEMOTX 38718 SHARLA MAGDALENO ADMN IV 5 [facility] NFS TQ EA INC INC SEQL NFS TO 1 HR CHEMOTX 52334 SHARLA LINON ADMN IV 5 [facility] NFS TQ UP INC INC 1 HR / SBST/DRUG GRANISETR Q0166 SHARLA MAGDALENO ON HCL 1 5 [facility] MG ORL INC INC NOT >48 HR DOSE REGIMEN INJECTION J1642 SHARLA MAGDALENO HEPARIN 5 [facility] SODIUM INC INC PER 10 UNITS INJECTION J9045 SHARLA MAGDALENO 5 [facility] CARBOPLAT INC INC IN 50 MG BLOOD 00377 SHARLA MAGDALENO COUNT 5 [facility]OS[facility] COMPLETE INC INC AUTO&AUTO DIFRNTL WBC COLLECTIO 01502 SHARLA MAGDALENO N VENOUS 5 [facility] BLOOD INC INC VENIPUNCT URE COMPREHEN 91469 SHARLA MAGDALENO SIVE 5 MEM [facility]OS[facility] METABOLIC INC INC PANEL FLUORO 04205 SHARLA MAGDALENO CENTRAL 5 [facility] VENOUS INC INC ACCESS DEV PLACEMENT INSJ 98310 SHARLA MAGDALENO TUNNELED 5 [facility] CTR VAD INC INC W/SUBQ PORT AGE 5 YR/> INJECTION J2405 SHARLA MAGDALENO 5 [facility] ONDANSETR INC INC ON HCL PER 1 MG PORT C1788 SHARLA MAGDALENO INDWELLIN 5 [facility] G INC INC RADIOLOGI 29688 [facility] Martinez 5 MEDICAL ALEJANDRA EXAMINATI IMAGING ON CHEST ASS SINGLE VIEW FRONTAL INJECTION J1642 SHARLA MAGDALENO HEPARIN 5 [facility]OS[facility] SODIUM INC INC PER 10 UNITS INJECTION J0131 SHARLA MAGDALENO 5 [facility] ACETAMINO INC INC PHEN 10 MG ANESTHESI 81062 COMMUNITY MERRITT SHIRA A ACCESS 5 ANESTH CENTRAL OF THE VENOUS BLUE CIRCULATI ON BLOOD 23110 SHARLA MAGDALENO COUNT 5 [facility] COMPLETE INC INC AUTO&AUTO DIFRNTL WBC GONADOTRO 80907 SHARLA MAGDALENO PIN 5 [facility] CHORIONIC INC INC QUALITATI VE BASIC 16921 SHARLA MAGDALENO METABOLIC 5 [facility] PANEL INC INC CALCIUM TOTAL COLLECTIO 18193 SHARLA MAGDALENO N VENOUS 5 [facility] BLOOD INC INC VENIPUNCT URE ECG 58918 SHARLA BANG JR ROUTINE 5 [facility] W/LEAST P 12 LDS I&R ONLY ECG 72178 SHARLA MAGDALENO ROUTINE 5 [facility] ECG INC INC W/LEAST 12 LDS TRCG ONLY W/O I&R COMPREHEN 22227 SHARLA MAGDALENO SIVE 5 [facility] METABOLIC INC INC PANEL BLOOD 17254 SHARLA MAGDALENO COUNT 5 [facility] COMPLETE INC INC AUTO&AUTO DIFRNTL WBC HOSPITAL G0463 SHARLA MAGDALENO OUTPATIEN 5 [facility] T CLIN INC INC VISIT ASSESS & MGMT PT RADIOLOGI 33063 [place] [facility] 5 MEDICAL ALEJANDRA EXAMINATI IMAGING ON CHEST ASS SINGLE VIEW FRONTAL ECG 66189 SHARLA BANG JR ROUTINE 5 [facility] W/LEAST P 12 LDS I&R ONLY THERAPEUT 34047 SHARLA MAGDALENO IC 5 [facility] INJECTION INC INC [place] [address] [facility] IMAGING [address] [facility] ATTENUATI ON SKULL BASE MID-THIGH FLUORODEO A9552 [facility] XYGLUCOSE 5 Y Y F-18 FDG [facility] DX UP TO 45 MCI INJECTION J1642 SHARLA MAGDALENO HEPARIN 5 [facility] SODIUM INC INC PER 10 UNITS BLOOD 82453 SHARLA MAGDALENO COUNT 5 [facility] COMPLETE INC INC AUTO&AUTO DIFRNTL WBC COMPREHEN 79464 SHARLA MAGDALENO SIVE 5 [facility]OS[facility] METABOLIC INC INC PANEL THERAPEUT 37569 [facility] IC 5 Y Y INJECTION HOSPITAL HOSPITAL IV PUSH EACH NEW DRUG CHEMOTX 25838 [facility] ADMN IV 5 Y Y NFS TQ EA [facility] SEQL NFS TO 1 HR INJECTION J9267 [facility] 5 Y Y PACLITAXE [facility] L 1 MG INFUSION J7040 [facility] NORMAL 5 Y Y SALINE [facility] SOLUTION STERILE CHEMOTHER 48248 [facility] APY ADMN 5 Y Y IV HOSPITAL HOSPITAL INFUSION TQ EA HR INJECTION J2060 [facility] 5 Y Y LORAZEPAM [facility] 2 MG INJECTION J9045 [facility] 5 Y Y CARBOPLAT [facility] IN 50 MG DEXAMETHA J8540 [facility] SONE ORAL 5 Y Y 0.25 MG HOSPITAL [facility]PITAL INFUSION J7050 [facility] NORMAL 5 Y Y SALINE [facility] SOLUTION 250 CC INJECTION J1200 [facility] 5 Y Y DIPHENHYD [facility] RAMINE HCL UP TO 50 MG INJ J1720 [facility] HYDROCORT 5 Y Y [facility] SOD[facility]UM SUCCINATE TO 100 MG ONDANSETR Q0162 [facility] ON 1 MG 5 Y Y ORL NOT [facility]PITAL EXCEED 48 HR DOSE REG CHEMOTX 32600 [facility] ADMN IV 5 Y Y NFS TQ [facility] 1 HR SBST/DRUG INJECTION J1642 SHARLA MAGDALENO HEPARIN 5 [facility] SODIUM INC INC PER 10 UNITS BLOOD 54161 SHARLA MAGDALENO COUNT 5 [facility] COMPLETE INC INC AUTO&AUTO DIFRNTL WBC COMPREHEN 04428 SHARLA MAGDALENO SIVE 5 [facility] METABOLIC INC INC PANEL IRRIGAJ 19199 SHARLA MAGDALENO IMPLNTD 5 [facility] VENOUS INC INC ACCESS DRUG DELIVERY SYST BLOOD 02692 SHARLA MAGDALENO COUNT 5 [facility] COMPLETE INC INC AUTO&AUTO DIFRNTL WBC INJECTION J1642 SHARLA MAGDALENO HEPARIN 5 [facility] SODIUM INC INC PER 10 UNITS COLLECTIO 42410 SHARLA MAGDALENO N VENOUS 5 [facility] BLOOD INC INC VENIPUNCT URE COMPREHEN 59636 SHARLA MAGDALENO SIVE 5 [facility] METABOLIC INC INC PANEL INSJ PRPH 15367 [facility] CVC W/O 5 Y Y SUBQ [facility] PORT/CANDLE CUTTER AGE 5 YR/> DEXAMETHA J8540 [facility] SONE ORAL 5 Y Y 0.25 MG HOSPITAL HOSPITAL INJECTION J1200 [facility] 5 Y Y [facility] HCL UP TO 50 MG INFUSION J7050 [facility] NORMAL 5 Y Y SALINE [facility] SOLUTION 250 CC INJECTION J2060 [facility] UNIVERS 5 Y Y LORAZEPAM [facility] 2 MG BLOOD 87637 [facility] UNIVERS COUNT 5 Y Y [facility] AUTO&AUTO DIFRNTL WBC INJ J1720 [facility] HYDROCORT 5 Y Y ISONE [facility] SODIUM SUCCINATE TO 100 MG CHEMOTX 14065 [facility] UNIVERS ADMN IV 5 Y Y NFS TQ [facility] 1 HR SBST/DRUG ONDANSETR Q0162 [facility] UNIVERS ON 1 MG 5 Y Y ORL NOT [facility]PITAL EXCEED 48 HR DOSE REG CHEMOTHER 60175 [facility] APY ADMN 5 Y Y IV HOSPITAL HOSPITAL INFUSION TQ EA HR INJECTION J9267 [facility] UNIVERS 5 Y Y PACLITAXE [facility] L 1 MG INFUSION J7040 [facility] UNIVERS NORMAL 5 Y Y [facility] SOLUTION STERILE CHEMOTX 34679 [facility] ADMN IV 5 Y Y NFS TQ [facility] SEQL NFS TO 1 HR COMPREHEN 94283 [facility] SIVE 5 Y Y METABOLIC [facility] PANEL THERAPEUT 67313 [facility] IC 5 Y Y INJECTION [facility] IV PUSH EACH NEW DRUG LOCM Q9967 [facility] 300-399 5 Y Y MG/ML HOSPITAL HOSPITAL IODINE CONCENTRA TION PER ML CT SOFT 45939 [facility] TISSUE 5 Y Y NECK [facility] W/[place] [address] [facility] ABDOMEN & 5 Y Y PELVIS [facility] W/CONTRAS T MATERIAL CT THORAX 24424 [facility] 5 [facility] ANESTHESI 49233 [place] A VAGINAL 5 MEDICAL DESHAUN SERVICES PROCEDURE W/BIOPSY NOS INJECTION J2405 [facility] 5 Y Y [facility] H[facility] PER 1 MG INSERTION 75577 [facility] UTERINE 5 Y Y TANDEM&/V [facility] AGINAL OVOIDS REMOTE 31811 [facility] AFTL 5 Y Y RADIONUCL [facility] MATTIE BRACHYTX 2-12 CHANNEL INJECTION J2250 [facility] 5 Y Y MIDAZOLAM [facility] HCL PER 1 MG INJECTION J1200 [facility] 5 Y Y DIPHENHYD [facility] RAMINE HCL UP TO 50 MG INFUSION J7030 [facility] NORMAL 5 Y Y SALINE [facility] SOLUTION 1000 CC THER RAD 07047 [facility] SIMULAJ-A 5 Y Y [facility] FIELD SETTING COMPLEX INJECTION J2704 [facility] PROPOFOL 5 Y Y 10 MG HOSPITAL HOSPITAL INJECTION J3010 [facility] FENTANYL 5 Y Y CITRATE [facility] 0.1 MG CONTINUIN 42928 [facility] G MEDICAL 5 Y Y PHYSICS [facility] CONSLTJ TX WK BRACHYTX C1717 [facility] NONSTRAND 5 Y Y ED HI [facility] DOSE IRIDIUM-1 92 PER SRC BRACHYTX 50007 [facility] ISODOSE 5 Y Y PLN [facility] INTERMED W/[place] [address] [facility] DEVICES 5 Y Y DESIGN & [facility] CONSTRUCT ION SIMPLE INJECTION J1100 [facility] 5 Y Y DEXAMETHO [facility] SONE SODIUM PHOSPHATE 1 MG INJECTION J2175 [facility] 5 Y Y [facility] E HCL PER 100 MG INJECTION J1170 [facility] 5 Y Y HYDROMORP [facility] RADHA UP TO 4 MG INJECTION J2175 [facility] 5 Y Y [facility] E HCL PER 100 [place] [address] AYSE TAVERA DEVICES 5 MEDICAL MEDICAL DESIGN & SERV SERV CONSTRUCT FOUNDATIO FOUNDATIO ION N N SIMPLE BRACHYTX 45651 AYSE BONNERNEREIDA ISODOSE 5 MEDICAL CHRISTIANO PLN SERV INTERMED FOUNDATIO W/DOSIMET N RY [place] BRACHYTX C1717 [facility] 5 Y Y ED [facility] DOSE IRIDIUM-1 92 PER SRC CONTINUIN 86633 [facility] 5 Y Y [facility] CONSLTJ TX WK INJECTION J2704 [facility] 5 Y Y 10 MG [facility] THER RAD 28703 AYSE KATHLEEN FERNANDEZ-A 5 MEDICAL CHRISTIANO IDED SERV FIELD FOUNDATIO SETTING N COMPLEX INJECTION J1200 [facility] 5 Y Y [facility] RAMINE HCL UP TO 50 MG REMOTE 32425 YASE BONNERNEREIDA FLORIANTLD 5 MEDICAL CHRISTIANO RADIONUCL SERV MATTIE FOUNDATIO BRACHYTX N 2-12 CHANNEL INSERTION 51508 [facility] 5 Y Y TANDEM&/V HOSPITAL HOSPITAL AGINAL OVOIDS ANESTHESI 86311 AYSE CORTEZ A VAGINAL 5 MEDICAL DESHAUN SERVICES PROCEDURE W/BIOPSY NOS ANESTHESI 38904 [place] JUSTIN A VAGINAL 5 MEDICAL CRY SERVICES PROCEDURE W/BIOPSY NOS INSERTION 40321 AYSE WANG UTERINE 5 MEDICAL CHRISTIANO TANDEM&/V SERV AGINAL FOUNDATIO OVOIDS N REMOTE 24914 AYSE BONNERNEREIDA AFTLD 5 MEDICAL CHRISTIANO RADIONUCL SERV MATTIE FOUNDATIO BRACHYTX N 2-12 CHANNEL INJECTION J2250 [facility] 5 Y Y [facility] HCL PER 1 MG THER RAD 13790 AYSE KATHLEEN SCHWABULAJ-A 5 MEDICAL CHRISTIANO IDED SERV [place] [address] [place] [id number] DEVICES 5 MEDICAL CHRISTIANO DESIGN & SERV CONSTRUCT FOUNDATIO ION N SIMPLE INJECTION J3010 [facility] FENTANYL 5 Y Y CITRATE [facility] 0.1 MG BRACHYTX 10186 [place] [facility] ISODOSE 5 MEDICAL CHRISTIANO PLN SERV INTERMED FOUNDATIO W/DOSIMET N RY [place] RADIATION 37468 [facility] 5 Y Y TREATMENT [facility] DELIVERY 1 MEV => COMPLEX RADIATION 65414 [facility] 5 Y Y TREATMENT [facility] DELIVERY 1 MEV => COMPLEX RADIATION 32860 [facility] 5 Y Y TREATMENT [facility] DELIVERY 1 MEV => COMPLEX COMPREHEN 30195 [facility] 5 Y Y METABOLIC [facility] PANEL COLLECTIO 01405 [facility] VENOUS 5 Y Y BLOOD [facility] VENIPUNCT URE ONDANSETR Q0162 [facility] ON 1 MG 5 Y Y ORL [facility] EXCEED 48 HR DOSE REG CHEMOTX 28777 [facility] ADMN IV 5 Y Y NFS TQ UP [facility] 1 HR SBST/[place] [address] [facility] INFUSION 5 Y Y THERAPY [facility] PROPHYLAX IS/DX EA HOUR INJECTION J3480 [facility] 5 Y Y POTASSIUM [facility] CHLORIDE PER 2 MEQ INFUSION J7030 [facility] NORMAL 5 Y Y SALINE [facility] SOLUTION 1000 CC DEXAMETHA J8540 [facility] SONE ORAL 5 Y Y 0.25 MG [facility] APREPITAN J8501 [facility] T ORAL 5 5 Y Y MG HOSPITAL [facility]OSPITAL INJECTION J9060 [facility] 5 Y Y CISPLATIN [facility] POWDER OR SOLUTION 10 MG BLOOD 51632 [facility] COUNT 5 Y Y COMPLETE [facility] AUTO&AUTO DIFRNTL WBC INFUSION J7040 [facility] NORMAL 5 Y Y SALINE [facility] [place] [address] [facility] INFUSION 5 Y Y THER [facility] PROPH ADDL SEQUENTIA L TO 1 HR INJECTION J3475 [facility] 5 Y Y [facility] SULPHATE PER 500 MG RADIATION 68455 [facility] 5 Y Y TREATMENT HOSPITAL HOSPITAL DELIVERY 1 MEV => COMPLEX RADIATION 76718 [facility] 5 Y Y TREATMENT HOSPITAL HOSPITAL DELIVERY 1 MEV => COMPLEX RADIATION 35891 [place] [facility] 5 MEDICAL CHRISTIANO TREATMENT SERV FOUNDATIO MANAGEMEN N T 5 TREATMENT S COLLECTIO 33333 [facility] VENOUS 5 Y Y BLOOD [facility] VENIPUNCT URE BASIC 31984 [facility] METABOLIC 5 Y Y PANEL [facility] CALCIUM TOTAL CULTURE 18785 [facility] BACTERIAL 5 Y Y HOSPITAL [facility] QUANTTATI VE COLONY COUNT URINE BLOOD 86725 [facility] 5 Y Y COMPLETE [facility] AUTOMATED CONTINUIN 69685 [facility] MEDICAL 5 Y Y PHYSICS [facility] CONSLTJ TX WK ECG 07771 [place] ROB LINDSAY ROUTINE 5 MEDICAL ECG SERV W/LEAST FOUNDATIO 12 LDS N I&R ONLY URNLS DIP 21685 [facility] 5 Y Y STICK/TAB HOSPITAL HOSPITAL LET REAGENT AUTO MICROSCOP Y ECG 93323 [facility] ROUTINE 5 Y Y ECG [facility] W/LEAST 12 LDS TRCG ONLY W/O I&R THERAPEUT 58655 [facility] 5 Y Y RADIOLOGY HOSPITAL [facility] PORT IMAGES(S) RADIATION 23916 [facility] 5 Y Y TREATMENT HOSPITAL HOSPITAL DELIVERY 1 MEV => COMPLEX RADIATION 23320 [facility] 5 Y Y TREATMENT HOSPITAL HOSPITAL DELIVERY 1 MEV => COMPLEX RADIATION 99247 [facility] 5 Y Y TREATMENT HOSPITAL HOSPITAL DELIVERY 1 MEV => COMPLEX COMPREHEN 49931 [facility] 5 Y Y METABOLIC HOSPITAL HOSPITAL PANEL COLLECTIO 21330 [facility] VENOUS 5 Y Y BLOOD [facility] [place] [address] [facility] INFUSION 5 Y Y THERAPY HOSPITAL [facility] PROPHYLAX IS/DX EA HOUR CHEMOTX 07466 [facility] ADMN IV 5 Y Y NFS TQ UP [facility] 1 HR SBST/DRUG ONDANSETR Q0162 [facility] ON 1 MG 5 Y Y ORL NOT [facility] EXCEED 48 HR DOSE REG INJECTION J9060 [facility] 5 Y Y CISPLATIN [facility] POWDER OR SOLUTION 10 MG DEXAMETHA J8540 [facility] SONE ORAL 5 Y Y 0.25 MG HOSPITAL HOSPITAL INFUSION J7030 [facility] NORMAL 5 Y Y SALINE [facility] SOLUTION 1000 CC INFUSION J7050 [facility] NORMAL 5 Y Y SALINE [facility] SOLUTION 250 CC INJECTION J3480 [facility] 5 Y Y POTASSIUM [facility] CHLORIDE PER 2 MEQ BLOOD 29231 [facility] COUNT 5 Y Y COMPLETE [facility] AUTO&[place] [address] [facility] 5 Y Y PROPHYLAX [facility] IS/DX CONCURREN T NFS INFUSION J7040 [facility] NORMAL 5 Y Y SALINE [facility] [place] [address] [facility] 5 Y Y THER [facility] PROPH ADDL SEQUENTIA L TO 1 HR INJECTION J3475 [facility] 5 Y Y MAGNESIUM [facility] SULPHATE PER 500 MG INJECTION J1453 [facility] 5 Y Y FOSAPREPI [facility] TANT 1 MG AMB A0427 [facility] SERVICE 5 [place] ALS URBAN URBAN EMERGENCY COGOVT COGOVT TRANSPORT LEVEL 1 GROUND A0425 [facility] MILEAGE 5 [place] PER URBAN URBAN STATUTE COGOVT COGOVT MILE RADIATION 76173 [facility] 5 Y Y TREATMENT [facility] DELIVERY 1 MEV => COMPLEX RADIATION 12900 [facility] 5 Y Y TREATMENT [facility] DELIVERY 1 MEV => COMPLEX RADIATION 43887 [facility] MEDICAL CHRISTIANO TREATMENT SERV FOUNDATIO MANAGEMEN N T 5 TREATMENT S THERAPEUT 78638 [facility] IC 5 Y Y RADIOLOGY HOSPITAL [facility] PORT IMAGES(S) GLUCOSE 88121 [facility] QUANTITAT 5 Y Y VINCENT BLOOD [facility] XCPT REAGENT STRIP CONTINUIN 15008 [facility] G MEDICAL 5 Y Y PHYSICS [facility]OSPITAL [facility] CONSLTJ [place] WK RADIATION 36631 [facility] 5 Y Y TREATMENT [facility] DELIVERY 1 MEV => COMPLEX COLLECTIO 81346 [facility] N VENOUS 5 Y Y BLOOD [facility] VENIPUNCT URE RADIATION 43718 [facility] 5 Y Y TREATMENT [facility] DELIVERY 1 MEV => COMPLEX COMPREHEN 92188 [facility] SIVE 5 Y Y [place]AB[place] [facility] [place] [address] [facility] [place] 5 Y Y THERAPY [facility] PROPHYLAX IS/DX EA HOUR CHEMOTX 55834 [facility] ADMN IV 5 Y Y NFS [facility] 1 HR SBST/DRUG ONDANSETR Q0162 [facility] ON 1 MG 5 Y Y ORL NOT [facility] EXCEED 48 HR DOSE REG DEXAMETHA J8540 [facility] SONE ORAL 5 Y Y 0.25 [facility] INJECTION J9060 [facility] 5 Y Y CISPLATIN [facility] POWDER OR SOLUTION 10 MG INJECTION J3480 [facility] 5 Y Y POTASSIUM [facility] CHLORIDE PER 2 MEQ APREPITAN J8501 [facility] T ORAL 5 5 Y Y MG [facility] INFUSION J7030 [facility] NORMAL 5 Y Y SALINE [facility] SOLUTION 1000 CC BLOOD 56287 [facility] COUNT 5 Y Y COMPLETE [facility] AUTO&AUTO DIFRNTL WBC INJECTION J3475 [facility] 5 Y Y MAGNESIUM [facility] SULPHATE [place] [address] [facility] INFUSION 5 Y Y THER [facility] PROPH ADDL SEQUENTIA L TO 1 HR INFUSION J7040 [facility] NORMAL 5 Y Y [facility] SOLUTION STERILE RADJ DLVR 53533 [facility] 3/> 4 Y Y [facility] 08-16MEV RADJ DLVR 28578 [facility] 3/> 4 Y Y [facility] 08-16MEV THERAPEUT 36843 [facility] 4 Y Y RADIOLOGY [facility] PORT IMAGES(S) RADIATION 75146 [place] 4 MEDICAL CHRISTIANO TREATMENT SERV FOUNDATIO MANAGEMEN N T 5 TREATMENT S RADJ DLVR 50010 [facility] 3/> 4 Y Y [facility] -MEV CONTINUIN 49796 [facility] Y Y PHYSICS [facility] CONSLTJ [place] WK RADJ DLVR 13986 [facility] 3/> 4 Y Y [facility] [place] 08-16[place] [address] AYSE BELTRANLAU HEAD/BRAI 4 MEDICAL FLA N W/O & SERV W/CONTRAS FOUNDATIO T N MATERIAL LOCM Q9967 [facility] [phone] 4 Y Y MG/ML [facility] IODINE CONCENTRA TION PER ML RADJ DLVR 30770 [facility] 3/> 4 Y Y [facility] 08-16MEV RADJ DLVR 58180 [facility] 3/> 4 Y Y [facility] 08-16MEV RADJ DLVR 11408 [facility] 3/> 4 Y Y [facility] 08-16MEV INJECTION J9060 [facility] 4 Y Y CISPLATIN [facility] POWDER OR SOLUTION 10 MG DEXAMETHA J8540 [facility] SONE ORAL 4 Y Y 0.25 MG HOSPITAL [facility]PITAL INFUSION J7030 [facility] NORMAL 4 Y Y SALINE [facility] SOLUTION 1000 CC APREPITAN J8501 [facility] T ORAL 5 4 Y Y MG HOSPITAL [facility]OSPITAL INJECTION J3480 [facility] 4 Y Y POTASSIUM [facility] CHLORIDE PER 2 MEQ BLOOD 31540 [facility] COUNT 4 Y Y COMPLETE [facility] AUTO&AUTO DIFRNTL WBC COMPREHEN 42294 [facility] SIVE 4 Y Y METABOLIC [facility] PANEL COLLECTIO 29570 [facility] N VENOUS 4 Y Y BLOOD [facility] [place] [place] [address] [facility] INFUSION 4 Y Y THERAPY [facility] PROPHYLAX IS/DX EA HOUR CHEMOTX 77395 [facility] ADMN IV 4 Y Y NFS TQ [facility] 1 HR SBST/DRUG ONDANSETR Q0162 [facility] ON 1 MG 4 Y Y ORL NOT [facility]PITAL EXCEED 48 [place] [address] [facility] INFUSION 4 Y Y THER [facility] PROPH ADDL SEQUENTIA L TO 1 HR INJECTION J3475 [facility] 4 Y Y MAGNESIUM [facility] SULPHATE PER 500 MG INFUSION J7040 [facility] NORMAL 4 Y Y SALINE [facility] SOLUTION STERILE RADIATION 33274 [facility] 4 MEDICAL JOSÉ TREATMENT SERV FOUNDATIO MANAGEMEN N T 5 TREATMENT S THERAPEUT 39294 [facility] IC 4 Y Y RADIOLOGY [facility] PORT IMAGES(S) RADJ DLVR 96236 [facility] 3/> 4 Y Y [facility] 08-16MEV CONTINUIN 41034 [facility] G MEDICAL 4 Y Y PHYSICS [facility] CONSLT TX WK RADJ DLVR 70837 [facility] 3/> 4 Y Y [facility] 08-16MEV RADJ DLVR 28684 [facility] 3/> 4 Y Y [facility] 08-16MEV RADJ DLVR 62661 [facility] 3/> 4 Y Y [facility] 08-16MEV DEXAMETHA J8540 [facility] SONE ORAL 4 Y Y 0.25 MG HOSPITAL HOSPITAL INJECTION J9060 [facility] 4 Y Y CISPLATIN [facility] POWDER OR SOLUTION 10 MG APREPITAN J8501 [facility] T ORAL 5 4 Y Y MG HOSPITAL HOSPITAL INFUSION J7030 [facility] NORMAL 4 Y Y SALINE [facility]OS[facility]ITAL [facility]PITAL SOLUTION 1000 CC BLOOD 10362 [facility] COUNT 4 Y Y COMPLETE HOSPITAL [facility] AUTO&AUTO DIFRNTL WBC INJECTION J3480 [facility] 4 Y Y POTASSIUM [facility] CHLORIDE PER 2 MEQ COMPREHEN 71828 [facility] SIVE 4 Y Y METABOLIC [facility] PANEL COLLECTIO 70646 [facility] N VENOUS 4 Y Y BLOOD [facility] VENIPUNCT URE ONDANSETR Q0162 [facility] ON 1 MG 4 Y Y ORL NOT HOSPITAL HOSPITAL EXCEED 48 HR DOSE REG CHEMOTX 50490 [facility] ADMN IV 4 Y Y NFS TQ UP [facility] 1 HR SBST/[place] [address] [facility] INFUSION 4 Y Y THERAPY [facility] PROPHYLAX IS/DX EA HOUR INJECTION J3475 [facility] 4 Y Y MAGNESIUM [facility] SULPHATE PER 500 MG INFUSION J7040 [facility] NORMAL 4 Y Y SALINE [facility] [place] [address] [facility] INFUSION 4 Y Y THER [facility] PROPH ADDL SEQUENTIA L TO 1 HR THER RAD 62047 [facility] 4 Y Y [facility] FIELD SETTING SIMPLE RADIATION 79244 AYSE WANG [facility]ICAL CHRISTIANO TREATMENT SERV FOUNDATIO MANAGEMEN N T 5 TREATMENT S RADJ DLVR 74936 [facility] 3/> 4 Y Y AREAS [facility] CUSTOM BLKING 11-19MEV 3-D 04237 [facility] RADIOTHER [address] [facility] DOSE-VOLU ME HISTOGRAM S BASIC 63059 [facility] UNIVERS RADIATION 4 Y Y [facility] [place] [address] [facility] DEVICES 4 Y Y DESIGN & HOSP[facility] [place] [address] [facility] GUIDANCE 4 Y Y RADIATION [facility] THERAPY FLDS PLACEMENT THERAPEUT 57950 [place] [facility] 4 MEDICAL CHRISTIANO RADIOLOGY SERV TX FOUNDATIO PLANNING N COMPLEX THER RAD 34138 [facility] SIMULAJ-A 4 Y Y IDED [facility] FIELD SETTING COMPLEX FLUORODEO A9552 [facility] XYGLUCOSE 4 Y Y F-18 FDG [facility] DX UP TO 45 MCI PET 64405 [facility] IMAGING [address] [facility] ATTENUATI ON SKULL BASE MID-THIGH CT THORAX 23762 [facility] 4 Y Y W/CONTRAS [facility] [place] [address] [facility] ABDOMEN & 4 Y Y PELVIS [facility] W/[facility] T MATERIAL LOCM Q9967 [facility] 300-399 4 Y Y MG/ML [facility] IODINE [place] [address] [facility] SURG 4 Y OF PATHOLOGY [place] [facility] GROSS&JAMES ROSCOPIC EXAM PATH 25228 [facility] CONSLTJ 4 Y OF SURG 1ST [place] BLK [facility]OS[facility] FROZEN SCTJ 1 SPEC IMHISTOCH 73253 [facility] EM/CYTCHM 4 Y OF [address] [place] [address] ANTIBODY HOSPI STAIN PROCEDURE ANES 63124 [facility] HYSTEROSC 4 LTH MAR OPY&/HYST ANESTHESI EROSALPIN A PSC GOGRAPHY W/BX HYSTEROSC 34931 [facility] OPY BX 4 MEDICAL MAR ENDOMETRI SERV UM&/POLYP FOUNDATIO C W/WO N D&C BLOOD 38755 [facility] COUNT 4 Y Y HEMOGLOBI [facility] N BLOOD 09778 [facility] COUNT 4 Y Y HEMATOCRI [facility] T URINE 84815 AYSE STOKES 4 MEDICAL MAR TEST SERV VISUAL FOUNDATIO COLOR N CMPRSN METHS COLLECTIO 05153 [facility] N VENOUS 4 Y Y BLOOD [facility] VENIPUNCT URE CYTP 55394 [facility]NER CERVICAL/ 4 Y OF MILAGROS VAGINAL [place] REQ HOSPI INTERP PHYSICIAN CYTP C/V 11857 [facility] AUTO THIN 4 Y Y LYR [facility] [place] [address] CNTR[facility] AYSE CHANG TRANSVAGI 4 RADIOLOGY NAL AMBULANCE A0429 [facility] SERVICE 4 [facility] EMERGENC[facility] EMS EMS TRANSPORT GROUND A0425 [facility] MILEAGE 4 [facility] [place] [address] CNTRL AYSE CHANG ABDOMEN & 4 RADIOLOGY PELVIS W/CONTRAS T MATERIAL BLOOD 72717 [facility] SWINEY OCCULT 4 PAT PAT PEROXIDAS E ACTV QUAL FECES 1-3 [facility] 30100 [facility] DISCHARGE 3 Y OF YASH DAY [place] MANAGEMEN PEDIA T 30 MIN/< SBSQ HOSP 06953 [facility] CARE 3 Y OF YASH F/E/M NML [place] NB TX D PEDIA HX&XM NML 53133 [facility] NB INFT 3 Y OF YASH INITIATIO [place] N DX&TX PEDIA Encounters Encounter Start End Date Code Location Performer Type Date [facility] SHARLA - 7 7 [facility] SHARLA - 7 7 [facility] OFFICE 87000 [facility] PHYSICIAN T VISIT S GROUP 15 MINUTES EMERGENCY 33482 [facility] DEPT 7 7 PHYSICIAN VISIT S, PLLC HIGH SEVERITY& THREAT FUNCJ EMERGENCY 15945 [facility] 7 7 [facility] VISIT HIGH/URGE NT SEVERITY [facility]OSPITAL [facility] - 7 7 [facility] SHARLA - 7 7 [facility] - 7 7 [facility] - 7 7 [facility] SH[facility] - 7 7 [facility] OUTPATIEN INC T OFFICE 67682 [facility] [place] OUTPATIEN 7 7 PHYSICIAN T VISIT S GROUP 25 MINUTES EMERGENCY 22196 [facility] HAMMONDS 7 7 PHYSICIAN DEPARTMEN S, [facility] VISIT HIGH/URGE NT SEVERITY EMERGENCY 90876 [facility] DEPT 7 7 PHYSICIAN VISIT S, [facility] HIGH SEVERITY& THREAT FUNCJ EMERGENCY 55031 [facility] GRAMAJO DEPT 7 7 PHYSICIAN VISIT S, [facility] HIGH SEVERITY& THREAT FUN HOSP[facility] - 7 7 [facility] OUTPATIEN INC T EMERGENCY 04305 [facility] 7 7 [facility] DEPARTMEN INC T VISIT MODERATE SEVERITY EMERGENCY 51898 [facility] 7 7 PHYSICIAN DEPARTMEN S, PLLC T VISIT HIGH/URGE NT SEVERITY OFFICE 91172 [facility] OUTPATIEN 7 7 PHYSICIAN T VISIT S GROUP 25 MINUTES HOSPITAL [facility] - 7 7 [facility] OUTPATIEN INC T OFFICE 46565 [facility] [place] OUTPATIEN 7 7 PHYSICIAN T VISIT S GROUP 25 MINUTES HOSPITAL [facility] - 7 7 [facility] OUTPATIEN INC T EMERGENCY 73467 [facility] 7 7 PHYSICIAN DEPARTMEN S, PLLC T VISIT HIGH/URGE NT SEVERITY EMERGENCY 56840 [facility] 7 7 [facility] DEPARTMEN INC T VISIT LOW/MODER SEVERITY [facility]OSP[facility] - 7 7 [facility] OUTPATIEN INC T EMERGENCY 03652 [facility] 7 7 [facility] DEPARTMEN INC T VISIT MODERATE SEVERITY EMERGENCY 84805 [facility] SARGENT 7 7 PHYSICIAN U DEPARTMEN S, PLLC T VISIT HIGH/URGE NT SEVERITY [facility]OSPITAL [facility] - 7 7 [facility] OUTPATIEN INC T OFFICE 55151 [facility] FRYMALEX OUTPATIEN 7 7 PHYSICIAN T VISIT S GROUP 25 MINUTES OFFICE 25376 [facility] ALLRAN JR OUTPATIEN 7 7 PHYSICIAN T VISIT S GROUP 15 MINUTES HOSPITAL [facility] - 7 7 [facility] OUTPATIEN INC T [facility]OSPITAL [facility] - 7 7 [facility] OUTPATIEN INC T OFFICE 56081 [facility] [place] OUTPATIEN 7 7 PHYSICIAN T VISIT S GROUP 25 MINUTES HOSPITAL [facility]LA - 7 7 [facility] OUTPATIEN INC T OFFICE 76257 [facility] YMALEX OUTPATIEN 7 7 PHYSICIAN T NEW 30 S GROUP MINUTES EMERGENCY 73814 [facility] 7 7 PHYSICIAN KADEMEN S, [facility] T VISIT MODERATE SEVERITY [facility]OSPITAL [facility] - 7 7 [facility] OUTPATIEN INC T OFFICE 06005 [facility] ALLRAN JR OUTPATIEN 7 7 PHYSICIAN T VISIT S GROUP 10 MINUTES HOSPITAL [facility] - 7 7 [facility] OUTPATIEN INC T OFFICE 95682 [facility] MICHELLE OUTPATIEN 6 6 [facility] VISIT [facility] 15 P MINUTES HOSPITAL SHARLA - 6 6 [facility] OUTPATIEN INC T OFFICE 80328 SHARLA MICHELLE OUTPATIEN 6 6 [facility] VISIT HOSPITAL 10 P MINUTES EMERGENCY 02983 [facility] HAMMONDS 6 6 PHYSICIAN DEBBY GOSS S, [facility] T VISIT HIGH/URGE NT SEVERITY EMERGENCY 27326 [facility] DEPT 6 6 PHYSICIAN JAMES VISIT S, PLLC HIGH SEVERITY& THREAT FUNCJ EMERGENCY 82915 [facility] 6 6 [facility] DEPARTMEN INC T VISIT MODERATE SEVERITY [facility]OSPITAL [facility] - 6 6 [facility] OUTPATIEN INC T EMERGENCY 67267 [facility] 6 6 PHYSICIAN DEPARTMEN S, [facility] T VISIT HIGH/URGE NT SEVERITY EMERGENCY 41654 [facility] DEPT 6 6 PHYSICIAN JAMES VISIT S, [facility] HIGH SEVERITY& THREAT [facility] 5 5 [facility] 5 [facility] - 5 5 [facility] 89430 [facility] DEPT 5 5 BIT SHARPENER OPERATOR BIT SHARPENER OPERATOR VISIT HIGH SEVERITY& THREAT [facility] OFFICE 09003 MICHELLE MICHELLE OUTPATIEN 5 5 PHI PHI T VISIT 5 MINUTES HOSPITAL [facility] - 5 5 [facility] OUTPATIEN INC T [facility]OSPITAL [facility] 5 5 [facility] OUTPATIEN INC T OFFICE 86643 [facility] MICHELLE OUTPATIEN 5 5 [facility] PHI T VISIT 5 HOSPITAL MINUTES P [facility]OSP[facility] - 5 5 [facility] OUTPATIEN INC T OFFICE 02189 [facility] MICHELLE OUTPATIEN 5 5 [facility] PHI T VISIT 5 HOSPITAL MINUTES P OFFICE 71403 [facility] MICHELLE OUTPATIEN 5 5 [facility] PHI T VISIT 5 HOSPITAL MINUTES P [facility]OSP[facility] - 5 5 [facility] OUTPATIEN INC T OFFICE 95392 [facility] MICHELLE OUTPATIEN 5 5 [facility] PHI T VISIT 5 HOSPITAL MINUTES [facility]OSPITAL [facility] - 5 5 [facility] OUTPATIEN INC T [facility]OSPITAL SH[facility]LA - 5 5 [facility] OUTPATIEN INC T OFFICE 67272 [facility] 5 5 PHYSICIAN CAM T NEW 30 S GROUP [facility] - 5 5 [facility]PATIEN [facility] T EMERGENCY 17718 SH[facility]LA BUENROSTRO 5 5 [facility] HIGH/URGE NT [facility] SH[facility]LA [facility] 5 5 [facility] OUTPATIEN [facility]ERSIT - 5 5 [facility] 5 [facility]PAT[facility] 5 5 [facility] - 5 5 [facility] OUTPATIEN [facility] SH[facility] - 5 5 [facility] OUTPATIEN [facility] SHARLA [facility] 5 5 [facility]PAT[facility]EN [facility]ERS[facility] - 5 5 [facility] 5 5 Y [facility] UNIVERS[facility] 5 5 Y [facility] UNIVERSIT - [address] [facility] T OFFICE 80536 [facility] 5 5 Y T [facility] 15 [facility]ERS[facility] - 5 5 [facility] 5 [facility] 5 5 [facility] - 5 5 Y [facility] UNIVERSIT [facility] 5 5 Y [facility] OFFICE 90372 [facility] 5 5 Y T VISIT [address] [place] [address] UNIVERSIT - 5 5 Y [facility] - 5 5 Y [facility] - 5 5 Y [facility] EMERGENCY 65073 UNIVERSIT 5 5 Y [facility] VIS[facility] UNIVERSIT - 5 5 Y [facility] - 5 5 Y [facility]ERS[facility] - 5 5 Y [facility] UN[facility]ERS[facility] - 5 5 Y [facility] UNIVERSIT - 4 4 Y [facility] UNIVERSIT - 4 4 Y [facility] - 4 4 Y [facility] UN[facility]ERS[facility] - 4 4 Y [facility] UNIVERS[facility] - 4 4 Y [facility] UNIVERS[facility] - 4 4 Y [facility] UNIVERS[facility] - 4 4 Y [facility] UN[facility]ERS[facility] - 4 4 Y [facility] - 4 4 Y [facility]ERS[facility] - 4 4 Y [facility] - 4 4 Y [facility] - 4 4 Y [facility]ERS[facility] - 4 [address] [facility] T OFFICE 88875 [facility] 4 4 Y T VISIT HOSPITAL 15 MINUTES HOSPITAL UNIVERSIT - [address] [facility] T OFFICE 91982 [facility] 4 4 Y T VISIT HOSPITAL 40 MINUTES OFFICE 42425 AYSE WANG CONSULTAT 4 4 MEDICAL CHRISTIANO ION SERV NEW/ESTAB FOUNDATIO PATIENT N 80 MIN [facility] UNIVERSIT - 4 4 Y [facility] UNIVERSIT - [address] [facility] T OFFICE 05924 [facility] 4 4 [place] [employer] [facility] T NEW [facility] UN[facility]ERS[facility] - [address] [facility] T OFFICE 09480 AYSE STOKES OUTPATIEN 4 4 MEDICAL MAR T NEW 30 SERV MINUTES FOUNDATIO N EMERGENCY 31298 AVIL[facility] MUÑOZ DEPT 4 4 VISIT HIGH SEVERITY& THREAT FUNJ EMERGENCY 63303 MATTHEW VORKPOR DEPT 4 4 [facility] VISIT HIGH SEVERITY& THREAT FUNJ EMERGENCY 34528 SWINEY SWINEY 4 4 PAT PAT DEPARTMEN T VISIT HIGH/URGE NT SEVERITY
--- OUTSIDE RECORDS SUMMARY | 2017-07-08 20:45 | External Medical Summary Rpt ---
Author Author , CESAR Organization [employer]ESRA Address Unknown Phone [email or web address] Care Team Providers Care Certified Pesticide Applicator Name Role Phone ABSNER MILAGROS, ABSNER Unavailable Unavailable MILAGROS [employer] Unavailable Unavailable INC, [employer] Unavailable Unavailable INC, [employer] ALLRAN JR, ALLRAN JR Unavailable Unavailable AYOOB AND, AYOOB AND Unavailable Unavailable BEINEKE, BEINEKE Unavailable Unavailable STACY, STACY Unavailable Unavailable STACY ALL, STACY ALL Unavailable Unavailable [facility] Unavailable Unavailable DEPARTMENT, [facility] Unavailable Unavailable DEPARTMENT, [facility] MÁRQUEZ JAM, MÁRQUEZ JAM Unavailable Unavailable CORTEZ DESHAUN, Unavailable Unavailable DIEGO MAC CUSTOMER SERVICE MANAGER, BUBBA Unavailable Unavailable CUSTOMER SERVICE MANAGER BUBBA CUSTOMER SERVICE MANAGER, BUBBA Unavailable Unavailable CUSTOMER SERVICE MANAGER [facility], Unavailable Unavailable [facility] CASTILLO YASH, CASTILLO Unavailable Unavailable YASH [facility] Unavailable Unavailable [facility], [facility] Unavailable Unavailable [facility], [facility] МАРИЯ GAR, МАРИЯ Unavailable Unavailable GAR NIOC ALEJANDRA, Unavailable Unavailable NICO ALEJANDRA MICHELLE, MICHELLE Unavailable Unavailable MICHELLE PHI, Unavailable Unavailable MICHELLE PHI MICHELLE PHI, Unavailable Unavailable MICHELLE PHI MERRITT SHIRA, MERRITT SHIRA Unavailable Unavailable PANAMANIAN DESHAUN, PANAMANIAN Unavailable Unavailable DESHAUN FAUGHN LAO, FAUGHN Unavailable Unavailable LAO FEDDOCK CHRISTIANO, FEDDOCK Unavailable Unavailable CHRISTIANO FEEBACK, FEEBACK Unavailable Unavailable FRYMAN, FRYMAN Unavailable Unavailable YOKO, YOKO Unavailable Unavailable YOKO JAMES, YOKO Unavailable Unavailable JAMES [facility] Unavailable Unavailable INC, [facility] Un[facility] P, [facility], Unavailable Unavailable [facility] DIVYA MAR, STOKES Unavailable Unavailable MAR GRAMAJO, GRAMAJO Unavailable Unavailable RGAMAJO WANDA, GRAMAJO WANDA Unavailable Unavailable [facility] Un[facility] Un[facility], [facility] Un[facility] MERRITT JR, MERRITT JR Unavailable Unavailable MERRITT JR DWI, MERRITT Unavailable Unavailable JR DWI MAREK [facility] Unavailable Unavailable COGOVT, MAREK FAYET[facility] URBAN COGOVT MICHAELS MAR, MICHAELS Unavailable Unavailable MAR JERAMIE JOSÉ, JERAMIE Unavailable Unavailable JOSÉ [facility] Unavailable Unavailable EMS, [facility] Unavailable Unavailable EMS, [facility] PARK, PARK Unavailable Unavailable [facility] [...] PAT SWINEY PAT, SWINEY Unavailable Unavailable PAT [facility] Unavailable Unavailable HOSPITALS, [facility], Unavailable Unavailable [facility] VORKPOR NICOLÁS, VORKPOR Unavailable Unavailable NICOLÁS WEST KAYLEE, WEST KAYLEE Unavailable Unavailable Purpose Continuity of Care Document - 02-14-2003 through 2016 Problems Code Diagnosis DOS Provider Status K811 CHRONIC 04-22-2017 [facility] CHOLECYSTIT PHYSICIANS IS GROUP K819 CHOLECYSTIT 04-22-2017 COMMUNITY IS ANESTH OF UNSPECIFIED THE BLUE K828 OTHER 04-22-2017 [facility] SPECIFIED PHYSICIANS DISEASES OF GROUP GALLBLADDER [id number] ENCOUNTER 04-20-2017 [facility] FOR [facility] PREPROCEDUR INC AL LABORATORY [...] PAIN [facility] INC E663 OVERWEIGHT 02-13-2017 [facility] PH[facility]ICIANS GROUP G629 POLYNEUROPA 02-13-2017 [facility] THY PHYSICIANS UNSPECIFIED GROUP M9983 OTHER 02-13-2017 [facility] BIOMECHANIC PHYSICIANS AL LESIONS GROUP OF LUMBAR REGION M546 PAIN IN 02-10-2017 [facility] THORACIC PHYSICIANS, SPINE PLLC R51 HEADACHE 02-05-2017 [facility] PHYSICIANS, PLLC C539 MALIGNANT 01-22-2017 [place] NEOPLASM OF MEDICAL CERVIX IMAGING ASS UTERI UNSPECIFIED K219 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-22-2017 [facility] P WITHOUT ESOPHAGITIS M542 CERVICALGIA 01-22-2017 [facility] N938 OTHER SPEC 01-22-2017 [facility] ABNORMAL PHYSICIANS, UTERINE & PLLC VAGINAL BLEEDING N939 ABNORMAL 01-22-2017 [place] UTERINE & MEDICAL VAGINAL IMAGING ASS BLEEDING UNSPECIFIED R55 SYNCOPE AND 01-22-2017 [place] COLLAPSE [facility]ICAL IMAGING ASS [id number] UNSPECIFIED 01-22-2017 [place] INJURY OF MEDICAL HEAD IMAGING ASS INITIAL ENCOUNTER Q652AMX UNSPECIFIED 01-22-2017 [place] INJURY OF MEDICAL NECK IMAGING ASS INITIAL ENCOUNTER Z720 TOBACCO USE 01-22-2017 [facility] P Z8541 PERSONAL 01-22-2017 [facility] HISTORY PHYSICIANS, MALIGNANT PLL NEOPLASM CERVIX UTERI O21785 PAIN IN 01-16-2017 [place] RIGHT FOOT [facility]ICAL IM[facility] V1644KD CONTUSION 01-16-2017 [facility] OF RIGHT PHYSICIANS, FOOT PLLC INITIAL ENCOUNTER [id number] UNSPECIFIED 01-16-2017 [employer] RIGHT FOOT S INC INITIAL ENCOUNTER G4762 SLEEP 01-14-2017 [facility] RELATED LEG PHYSICIANS CRAMPS GROUP M5127 OTH 01-14-2017 [place] INTERVERTEB MEDICAL RAL DISC IMAGING ASS DISPLACEMEN T LS REGION N342 OTHER 01-08-2017 [facility] URETHRITIS PHYSICIANS, [facility] R1030 LOWER 01-08-2017 [place] ABDOMINAL MEDICAL PAIN IMAGING ASS UNSPECIFIED B12752 MIGRAINE 01-04-2017 [facility] W/O AURA PHYSICIANS, NOT INTRACT PLLC W/O STAT MIGRAIN D128 BENIGN 12-30-2016 [facility] NEOPLASM OF PHYSICIANS RECTUM GROUP K6289 OTHER 12-30-2016 COMMUNITY SPECIFIED ANESTH OF DISEASES OF THE BLUE ANUS AND RECTUM K648 OTHER 12-30-2016 [facility] HEMORRHOIDS PHYSICIANS GROUP K649 UNSPECIFIED 12-30-2016 COMMUNITY ANESTH OF HEMORRHOIDS THE BLUE K629 DISEASE OF 12-18-2016 [facility] ANUS AND PHYSICIANS RECTUM GROUP UNSPECIFIED E039 HYPOTHYROID 11-05-2016 [facility] ISM PHYSICIANS UNSPECIFIED GROUP Z0000 ENCOUNTER 10-15-2016 [facility] GEN ADULT PHYSICIANS MED EXAM GROUP W/O ABNORMAL FIND [id number] STRAIN 10-13-2016 [facility] MUSCLE PHYSICIANS, FASCIA & PLLC TENDON LOW BACK INITIAL F70795M OTH [facility] 10-01-2016 [facility] OTH ANESTH OF CARD VASC THE BLUE DEVC IMPL INIT ENC Z452 ENCOUNTER 10-01-2016 [facility] ADJUSTMENT& PHYSICIANS MGMT GROUP VASCULAR ACCESS DEVICE Z789 OTHER 09-29-2016 [facility] SPECIFIED PHYSICIANS HEALTH GROUP STATUS C569 MALIGNANT 09-05-2016 [facility] NE[facility]LASM OF MEDICAL IMAGING ASS UNSPECIFIED OVARY C7989 SECONDARY 09-05-2016 [facility] MALIGNANT [facility] NEOPLASM INC OT SPECIFIED SITES W92543 MIGRAINE 08-20-2016 [facility] W/AURA NOT PHYSICIANS, INTRACT PLLC W/STATUS MIGRAINOSUS R05 COUGH 03-18-2016 [facility] P R0602 SHORTNESS 03-18-2016 [facility] Q38927 MIGRAINE 02-04-2016 [facility] UNS NOT PHYSICIANS, INTRACT W/O PLLC STATUS MIGRAINOSUS R079 CHEST PAIN 12-01-2015 [place] UNSPECIFIED MEDICAL IMAGING ASS A92147A PAIN D/T 08-30-2015 [facility] IMPL & GRAFTS INITIAL Z13912H OTH SPEC 08-30-2015 [facility] IMPL GFT INIT ENC R1012 LEFT UPPER 06-30-2015 BUBBA CUSTOMER SERVICE MANAGER QUADRANT PAIN R109 UNSPECIFIED 06-30-2015 [place] ABDOMINAL MEDICAL PAIN IMAGING ASS R197 DIARRHEA 06-30-2015 BUBBA CUSTOMER SERVICE MANAGER UNSPECIFIED 1809 MALIGNANT 04-25-2015 [facility] NEOPLASM PHI CERVIX UTERI UNSPECIFIED SITE 34045 SOLITARY 04-11-2015 [place] PULMONARY MEDICAL NODULE IMAGING ASS V1041 PERSONAL 04-11-2015 [place] HISTORY MEDICAL MALIGNANT IMAGING ASS NEOPLASM CERVIX UTERI V711 OBSERVATION 04-11-2015 [place] FOR MEDICAL SUSPECTED IMAGING ASS MALIGNANT NEOPLASM 1749 MALIGNANT 02-28-2015 [facility] NEOPLASM OF [facility] BREAST [facility] P UNSPECIFIED SITE 4660 ACUTE 01-24-2015 [facility] BRONCHITIS [facility] P 1991 OTHER 01-16-2015 [facility] MALIGNANT PHYSICIANS NEOPLASM OF GROUP UNSPECIFIED SITE V5881 FITTING AND 01-16-2015 [place] ADJUSTMENT MEDICAL OF IMAGING ASS VASCULAR CATHETER 2331 CARCINOMA 01-12-2015 [facility] IN [facility]ITU [facility] P UTERI 02376 SHORTNESS 01-06-2015 [place] OF [facility]ATH [facility] IM[facility]ING ASS 92632 NAUSEA WITH 01-06-2015 SHARLA VOMITING [facility] P E9331 ANTINEOPLAS 01-06-2015 SHARLA TIC-IMMUNOS [facility]PP [facility] P ADVRSE EFF TX USE V5811 ENCOUNTER 01-02-2015 [facility] ANTINEOPLAS TIC CHEMOTHERAP Y 6268 OTH D/O 12-18-2014 [facility] N&OTH ABN BLEED FE GNT TRACT 5718 OTHER 12-01-2014 [place] [facility] NONALCOHOLI FOUNDATION C LIVER DISEASE 5939 UNSPECIFIED 12-01-2014 [place] [facility] DISORDER SERV OF KIDNEY [facility]OUNDATION AND URETER 7856 ENLARGEMENT 12-01-2014 [facility] NODES V580 RADIOTHERAP 10-30-2014 [facility] 179 MALIGNANT 10-23-2014 [facility] NEOPLASM OF [facility] UTERUS PART UNSPECIFIED 1800 MALIGNANT 10-19-2014 [place] [facility] NEOPLASM OF SERV ENDOCERVIX FOUNDATION 1968 SEC&UNSPEC 10-18-2014 [facility] NEOPLASM NODES MULTIPLE SITES 2859 UNSPECIFIED 10-04-2014 [facility] 6238 OTHER 10-04-2014 [facility] NONINFLAMMA TORY DISORDER VAGINA 16497 ABDOMINAL 10-04-2014 [place] [facility] PAIN, SERV UNSPECIFIED FOUNDATION SITE 86636 ABDOMINAL 10-04-2014 [facility] OTHER HOSPITAL SPECIFIED SITE V153 PERS HX 10-04-2014 [facility] PRES[facility]ING [facility] 7840 HEADACHE 09-20-2014 [facility] 1820 MALIGNANT 09-08-2014 [facility] UTERI EXCEPT ISTHMUS 6262 EXCESSIVE 09-08-2014 [facility] MENSTRUATIO N 1808 MALIGNANT 09-01-2014 [place] [facility] NEOPLASM SERV OTHER FOUNDATION SPECIFIED SITES CERVIX 66302 ABD/PELVIC 08-30-2014 [facility] MASS/LUMP OTH SPEC SITE 09788 NONGONOCOCC 08-15-2014 [facility] URETHRITIS DEPARTMENT DUE CHLAMYDTRAC HOMATIS 63969 MORBID 08-09-2014 [facility] ANESTHESIA PSC 6269 UNS D/O 08-07-2014 [facility] N&OTH ABN BLEED FE GNT TRACT V7241 08-07-2014 [place] [facility] EXAM[facility] OR TEST FOUNDATION NEGATIVE RESULT 4590 UNSPECIFIED 08-03-2014 [facility]EMORRHAGE [facility] 6259 UNSPEC 08-03-2014 [facility] [place] [facility] W/FEMALE GENITAL ORGANS 1123 CANDIDIASIS 02-09-2014 SWINEY PAT OF SKIN AND NAILS 42615 ANAL OR 02-09-2014 [facility] PAT RECTAL PAIN V3000 SINGLE 02-16-2003 [facility] W/O Allergies, Adverse Reactions, Alerts Clinical [...] Procedure DOS Code Location Performer Comment ANES 20904 [facility]UN[facility] FEEBACK INTRAPERI 7 ANESTH TONEAL OF THE UPPER BLUE ABDOMEN W/LAPS NOS LAPAROSCO 58709 SHARLA MAGDALENO PY SURG [address] [facility] CHOLECYST INC INC ECTOMY URINE 59399 SHARLA MAGDALENO [address] [facility] TEST INC INC VISUAL [place] [address] SHARLA MAGDALENO AMYLASE 7 [facility] INC INC COLLECTIO 17267 SHARLA MAGDALENO N VENOUS [address] [facility] BLOOD INC INC VENIPUNCT URE BLOOD 78426 SHARLA MAGDALENO COUNT 7 [facility] COMPLETE INC INC AUTO&AUTO DIFRNTL WBC COMPREHEN 46314 SHARLA MAGDALENO SIVE 7 [facility] [place] [address] SHARLA MAGDALENO LIPASE 7 [facility] [place] [address] SHARLA MAGDALENO INFUSION [address] [facility] THERAPY/P INC INC ROPHYLAXI S /DX 1ST TO 1 HR THERAPEUT 86369 SH[facility]LA MAGDALENO IC 7 [facility] INJECTION INC INC IV PUSH EACH NEW DRUG URNLS DIP 44896 SHARLA MAGDALENO 7 [facility] STICK/TAB INC INC [place] [address] SHARLA SHARLA LIPASE 7 [place] [address] SHARLA MAGDALENO ABDOMEN & 7 [facility] PELVIS INC INC W/O CONTRAST MATERIAL BLOOD 31052 SHARLA MAGDALENO COUNT 7 [facility] COMPLETE INC INC AUTO&AUTO DIFRNTL WBC COMPREHEN 32514 SHARLA SHARLA SIVE 7 [facility] H[facility] [place] [address] SHARLA MAGDALENO AMYLASE 7 [facility] INC INC URINE 02118 SHARLA MAGDALENO 7 [facility] TEST INC INC VISUAL COLOR CMPRSN METHS HEPATOBIL 19900 [place] BEINEKE SYST 7 MEDICAL IMAG INC IMAGING GB ASS W/PHARMA INTERVENJ TECHNETIU A9537 SHARLA MAGDALENO M TC-99M 7 [facility] MEBROFENI INC INC N DX UP [place] [address] [place] [address] SHARLA MAGDALENO ABDOMINAL 7 [facility] REAL INC INC TIME W/[place] [address] SHARLA MAGDALENO THYROXINE 7 [facility] [place] [address] SHARLA MAGDALENO THYROID 7 [facility] STIMULATI INC INC NG HORMONE TSH COLLECTIO 63192 SHARLA MAGDALENO N VENOUS 7 [facility] BLOOD INC INC VENIPUNCT URE APPLICATI 43617 SHARLA MAGDALENO ON 7 [facility] MODALITY INC INC 1/> AREAS HOT/COLD PACKS APPL 88298 SHARLA MAGDALENO MODALITY 7 [facility] 1/> AREAS INC INC ULTRASOUN D EA 15 MIN THERAPEUT 05068 SHARLA MAGDALENO IC PX 1/> 7 [facility] AREAS INC INC EACH 15 MIN EXERCISES APPL 68882 SHARLA MAGDALENO MODALITY 7 [facility] 1/> AREAS INC INC TRACTION MECHANICA L APPL 19809 SHARLA MAGDALENO MODALITY 7 [facility] 1/> AREAS INC INC ELEC STIMJ UNATTENDE D APPL 35311 SHARLA MAGDALENO MODALITY 7 [facility] 1/> AREAS INC INC TRACTION MECHANICA L APPL 91127 SHARLA MAGDALENO MODALITY 7 [facility] 1/> AREAS INC INC ELEC STIMJ UNATTENDE D THERAPEUT 20983 SHARLA MAGDALENO IC PX 1/> 7 [facility] AREAS INC INC EACH 15 MIN EXERCISES APPLICATI 51885 SHARLA MAGDALENO ON 7 [facility] MODALITY INC INC 1/> AREAS HOT/COLD PACKS PHYSICAL 28543 SHARLA MAGDALENO THERAPY 7 [facility] EVALUATIO INC INC N LOW COM[place] [address] [place] [address] [place] REGIS HEAD/BRAI 7 MEDICAL N W/O IMAGING CONTRAST ASS MATERIAL FINAL G9638 [place] STACY REPORTS 7 MEDICAL W/O DOC IMAGING 1/MORE ASS DOSE REDUCTION TECH FINAL G9638 [place] STACY REPORTS 7 MEDICAL W/O DOC IMAGING 1/MORE ASS DOSE REDUCTION TECH COMPREHEN 66483 SHARLA MAGDALENO SIVE 7 [facility] [place] [address] [facility] REGIS HEAD/BRAI 7 MEDICAL N W/O IMAGING CONTRAST ASS MATERIAL CREATINE 96778 SHARLA LINON KINASE MB 7 [facility] [place] [address] SHARLA MAGDALENO TROPONIN 7 [facility] QUANTITAT INC INC VINCENT BLOOD 48522 SAHRLA MAGDALENO COUNT 7 [facility] COMPLETE INC INC AUTO&AUTO DIFRNTL WBC ECG 29747 SHARLA MAGDALENO ROUTINE 7 [facility] ECG INC INC W/LEAST 12 LDS TRCG ONLY W/O I&R FINAL RPT G9557 [facility] STACY CT/MRI 7 MEDICAL CHEST/NCK IMAGING /U/S NO ASS THR NOD<1.0 [place] [address] [facility] TRANSVAGI 7 MEDICAL [place] [address] MICHELLE STACY CERVICAL 7 MEDICAL SPINE W/O IMAGING CONTRAST ASS MATERIAL CREATINE 79001 SHARLA MAGDALENO KINASE 7 [facility] TOTAL INC INC ECG 97443 [facility] GRAMAJO ROUTINE 7 PHYSICIAN ECG S, PLLC W/LEAST 12 LDS I&R ONLY RADEX 81893 MICHELLE STACY FOOT 7 MEDICAL COMPLETE IMAGING MINIMUM 3 ASS VIEWS CRTCHS E0114 [facility] UNDARM 7 TECHNOLOG TECHNOLOG OTH THAN IES INC IES INC WOOD PAIR PAD TIP&HNDGR IP MRI 05768 MICHELLE STACY SPINAL 7 MEDICAL CANAL IMAGING LUMBAR ASS W/O CONTRAST MATERIAL COLLECTIO 32550 [facility] FRYMAN N VENOUS 7 PHYSICIAN BLOOD S GROUP VENIPUNCT URE COMPREHEN 37962 SHARLA MAGDALENO SIVE 7 [facility] [address] SHARLA MAGDALENO MAGNESIUM 7 [facility]OS[facility] INC INC 3D 89789 MICHELLE STACY RENDERING 7 MEDICAL W/INTERP IMAGING & ASS POSTPROCE SS SUPERVISI ON CULTURE 74325 SHARLA MAGDALENO BACTERIAL 7 [facility] INC INC QUANTTATI VE COLONY COUNT URINE FINAL G9638 MICHELLE STACY REPORTS 7 MEDICAL W/O DOC IMAGING 1/MORE ASS DOSE REDUCTION TECH FINAL G9551 MICHELLE STACY REPR ABD 7 MEDICAL IMAG STS IMAGING W/O ASS INCIDNT FND LES NTD: [place] [address] MICHELLE STACY ABDOMEN & 7 MEDICAL PELVIS IMAGING W/O ASS CONTRAST MATERIAL URNLS DIP 88213 SHARLA MAGDALENO 7 [facility] STICK/TAB INC INC LET REAGENT AUTO MICROSCOP Y THERAPEUT 62978 SHARLA MAGDALENO IC 7 [facility] INJECTION INC INC IV PUSH EACH NEW DRUG THER 66539 SHARLA MAGDALENO PROPH/DX 7 [facility] NJX IV INC INC PUSH SINGLE/1S T SBST/DRUG THER 65816 SHARLA MAGDALENO PROPH/DX 7 [facility] NJX EA INC INC SEQL IV PUSH SBST/DRUG FAC URINE 53007 SHARLA MAGDALENO 7 [facility] TEST INC INC VISUAL COLOR CMPRSN METHS ANES 45349 [facility] LOWER 7 ANESTH INTESTINE OF THE BLUE ENDOSCOPY DISTAL DUODENUM COLONOSCO 59950 SHARLA MAGDALENO PY FLX DX 7 [facility] W/COLLJ INC INC SPEC WHEN PFRMD APPLICATI 25294 SHARLA MAGDALENO ON 7 [facility] MODALITY INC INC 1/> AREAS HOT/COLD PACKS THERAPEUT 54204 SHARLA MAGDALENO IC PX 1/> 7 [facility] AREAS INC INC EACH 15 MIN EXERCISES APPL 51447 SHARLA MAGDALENO MODALITY 7 [facility] 1/> AREAS INC INC ELEC STIMJ UNATTENDE D PHYSICAL 84878 SHARLA MAGDALENO THERAPY 7 [facility] H[facility] EVALUATIO INC INC N MOD COMPLEX 30 MINS BLOOD 97360 SHARLA MAGDALENO COUNT 7 [facility] COMPLETE INC INC AUTO&[place] [address] SHARLA MAGDALENO FREE 7 [facility] [place] [address] SHARLA MAGDALENO THYROID 7 [facility] STIMULATI INC INC NG HORMONE TSH INF AGT G0432 SHARLA MAGDALENO AB DETECT 7 [facility] EIA TECH INC INC HIV-1&/HI V-2 SCR COLLECTIO 30199 SHARLA MAGDALENO N VENOUS 7 [facility] BLOOD INC INC VENIPUNCT URE COMPREHEN 60821 SHARLA MAGDALENO SIVE 7 [facility] METABOLIC INC INC PANEL HEPATITIS 64942 SHARLA MAGDALENO A 7 [facility] ANTIBODY INC INC HAAB RADEX 83620 [place] STACY SPINE 7 MEDICAL LUMBOSACR IMAGING AL 2/3 ASS VIEWS RADEX 30894 SHARLA MAGDALENO SPINE 7 [facility] LUMBOSACR INC INC AL MINIMUM 4 VIEWS HEPATITIS 03168 SHARLA MAGDALENO B CORE 7 [facility] [place] [address] SHARLA MAGDALENO HEPATITIS 7 [facility] B INC INC SURFACE ANTIGEN HEPATITIS 67260 SHARLA MAGDALENO C 7 [facility] ANTIBODY INC INC GONADOTRO 44317 SHARLA MAGDALENO PIN 7 [facility] CHORIONIC INC INC QUALITATI VE ANES 67578 [facility] INTEG 7 ANESTH EXTREMITI OF THE ES ANT BLUE TRUNK & PERINEUM NOS RMVL JAYJAY 90722 [facility] ALLRAN JR CTR VAD 7 PHYSICIAN W/SUBQ S GROUP PORT/MEN'S GARMENT FITTER CTR/PRPH INSJ BLOOD 08288 SHARLA MAGDALENO COUNT 7 [facility] COMPLETE INC INC AUTO&AUTO DIFRNTL WBC COLLECTIO 07699 SHARLA MAGDALENO N VENOUS [address] [facility] BLOOD INC INC VENIPUNCT URE BASIC 33530 SHARLA MAGDALENO METABOLIC [address] [facility] [address] [facility] ABDOMEN & 6 MEDICAL PELVIS IMAGING W/CONTRAS ASS T MATERIAL RADIOLOGI 33034 SHARLA Martinez EXAM [address] [facility] CHEST 2 INC INC VIEWS FRONTAL&L ATERAL THER 79380 SHARLA MAGDALENO PROPH/DX [address] [facility] NJX IV INC INC PUSH SINGLE/1S T SBST/DRUG ECG 59220 SHARLA MAGDALENO ROUTINE [address] [facility] ECG INC INC W/LEAST 12 LDS TRCG ONLY W/O I&R ECG 18524 SHARLA BANG JR ROUTINE 6 [facility] W/LEAST P 12 LDS I&R ONLY CREATINE 17008 SHARLA MAGDALENO KINASE 6 [facility] TOTAL INC INC RHYTHM 75453 SHARLA MAGDALENO ECG 1-3 6 [facility] LEADS INC INC TRACING ONLY W/O I&R CREATINE 50328 SHARLA MAGDALENO KINASE MB 6 [facility] FRACTION INC INC ONLY COMPREHEN 68871 SHARLA MAGDALENO SIVE 6 [facility] METABOLIC INC INC PANEL BLOOD 01065 SHARLA MAGDALENO COUNT 6 [facility] COMPLETE INC INC AUTO&[place] [address] SHARLA MAGDALENO TROPONIN 6 [facility] [place] [address] MICHELLE PERESUTCHER HEAD/BRAI 6 MEDICAL ALEJANDRA N W/O IMAGING CONTRAST ASS MATERIAL CT THORAX 83245 MICHELLE STACY ALL 6 MEDICAL W/CONTRAS IMAGING T ASS MATERIAL RADIOLOGI 98735 MICHELLE STACY ALL C EXAM 6 MEDICAL CHEST 2 IMAGING VIEWS ASS FRONTAL&L ATERAL PET 32192 [place] МАРИЯ IMAGING [address] SERV ATTENUATI FOUNDATIO ON SKULL N BASE MID-THIGH FLUORODEO A9552 [facility] XYGLUCOSE 5 Y Y F-18 FDG [facility] DX UP TO 45 MCI INJECTION J2250 [facility] 5 [facility] MIDAZOLAM E E HCL [facility] 1 MG INJECTION J1642 [facility] HEPARIN 5 [facility]CAR SODIUM E E PER 10 [facility] UNITS INJECTION J0690 [place] 5 [facility]CAR CEFAZOLIN E E SODIUM [facility] 500 MG GLUCOSE 50888 [place] QUANTITAT 5 [facility] VINCENT BLOOD E E XCPT [facility] REAGENT STRIP BLOOD 62380 [facility] COUNT 5 [facility] COMPLETE E E AUTOMATED [facility] RMVL JAYJAY 58522 [facility] CTR VAD 5 [facility]CAR W/SUBQ E E PORT/MEN'S GARMENT FITTER [facility] CTR/PRPH INSJ INJECTION J1200 [facility] 5 [facility]ALTHCAR DIPHENHYD E E RAMINE [facility] HCL UP TO 50 MG INJECTION J3010 [facility] FENTANYL 5 [facility] HEALTHCAR CITRATE E E 0.1 MG [facility] INFUSION J7030 [place] [facility] NORMAL 5 [facility] SALINE E E SOLUTION [facility] 1000 CC COMPREHEN 39807 [place] SIVE 5 [facility] METABOLIC E E PANEL [facility] FLUORO 13255 [place] [facility] CENTRAL 5 [facility] VENOUS E E ACCESS [facility] DEV PLACEMENT INSJ 01128 [place] [facility] TUNNELED 5 [facility] CTR VAD E E W/SUBQ [facility] PORT AGE 5 YR/> PORT C1788 [facility] INDWELLIN 5 [facility] G E E [facility] GUIDE C1769 [place] [facility] WIRE 5 [facility] E E [facility] US VASC 89597 [place] [facility] ACCESS 5 [facility] SITS VSL E E [facility] NDL ENTRY PROTHROMB 92648 [place] [facility] IN TIME 5 [facility] E E [facility] INJECTION J1644 [facility] HEPARIN 5 [facility] SODIUM E E PER 1000 [facility] UNITS LOCM Q9967 [facility] [phone] Y Y MG/ML [facility]OS[facility] [place] [address] [place] AYOO[place] AND ABDOMEN & 5 MEDICAL PELVIS SERV W/CONTRAS FOUNDATIO T N MATERIAL [facility] THORAX [address] [place] AYOOB AND 5 MEDICAL W/CONTRAS SERV T [place] [address] [place] STACY ALL ABDOMEN & 5 MEDICAL PELVIS IMAGING W/[place] [address] SHARLA MAGDALENO ABDOMEN & 5 [facility] PELVIS INC INC W/CONTRAS T MATERIAL LOCM Q9967 SHARLA MAGDALENO [phone] 5 [facility] MG/ML INC INC IODINE CONCENTRA TION PER ML URNLS DIP 98231 SH[facility]LA MAGDALENO 5 [facility] STICK/TAB INC INC LET REAGENT AUTO MICROSCOP Y CT THORAX 07629 SH[facility]LA MAGDALENO 5 [facility] W/CONTRAS INC INC T MATERIAL CULTURE 36638 SHARLA MAGDALENO BACTERIAL 5 [facility] INC INC QUANTTATI VE COLONY COUNT URINE INJECTION J1642 SHARLA MAGDALENO HEPARIN 5 [facility] SODIUM INC INC PER 10 UNITS INJECTION J1642 SHARLA MAGDALENO HEPARIN 5 [facility] SODIUM INC INC PER 10 UNITS BLOOD 00796 SHARLA MAGDALENO COUNT 5 [facility] COMPLETE INC INC AUTO&AUTO DIFRNTL WBC GRANISETR Q0166 SHARLA MAGDALENO ON HCL 1 5 [facility] MG ORL INC INC NOT >48 HR DOSE REGIMEN CHEMOTX 85871 SHARLA MAGDALENO ADMN IV 5 [facility] NFS TQ UP INC INC 1 HR SBST/DRUG COMPREHEN 47177 SHARLA MAGDALENO SIVE 5 [facility] METABOLIC INC INC PANEL CHEMOTHER 62568 SHARLA MAGDALENO APY ADMN 5 [facility] IV INC INC INFUSION TQ EA HR INJECTION J9267 SHARLA MAGDALENO 5 [facility] PACLITAXE INC INC L 1 MG CHEMOTX 43144 SHARLA MAGDALENO ADMN IV 5 [facility] NFS TQ EA INC INC SEQL NFS TO 1 HR CHEMOTX 13716 SHARLA LINON ADMN IV 5 [facility] [...] CARBOPLAT INC INC IN 50 MG BLOOD 61659 SHARLA MAGDALENO COUNT 5 [facility] COMPLETE INC INC AUTO&AUTO DIFRNTL WBC COLLECTIO 32410 SHARLA MAGDALENO N VENOUS 5 [facility] BLOOD INC INC VENIPUNCT URE COMPREHEN 31074 SHARLA MAGDALENO SIVE 5 [facility] METABOLIC INC INC PANEL FLUORO 02004 SHARLA MAGDALENO CENTRAL 5 [facility] VENOUS INC INC ACCESS DEV PLACEMENT INSJ 71117 SHARLA MAGDALENO TUNNELED 5 [facility] CTR VAD INC INC W/SUBQ PORT AGE 5 YR/> INJECTION J2405 SHARLA MAGDALENO 5 [facility] ONDANSETR INC INC ON HCL PER 1 MG PORT C1788 SHARLA MAGDALENO INDWELLIN 5 [facility] G INC INC RADIOLOGI 06478 [facility] Martinez 5 MEDICAL ALEJANDRA EXAMINATI IMAGING ON CHEST ASS SINGLE VIEW FRONTAL INJECTION J1642 SHARLA MAGDALENO HEPARIN 5 [facility] SODIUM INC INC PER 10 UNITS INJECTION J0131 SHARLA MAGDALENO [address] [facility] HOSP ACETAMINO INC INC PHEN 10 MG ANESTHESI 05849 [facility] A ACCESS 5 ANESTH CENTRAL OF THE VENOUS BLUE CIRCULATI ON BLOOD 35266 SHARLA MAGDALENO COUNT [address] [facility]OSP COMPLETE INC INC AUTO&AUTO DIFRNTL WBC GONADOTRO 42421 SHARLA MAGDALENO PIN [address] [facility] HOSP CHORIONIC INC INC QUALITATI VE BASIC 45068 SHARLA MAGDALENO METABOLIC [address] [facility] PANEL INC INC CALCIUM TOTAL COLLECTIO 73573 SHARLA MAGDALENO N VENOUS 5 [facility] BLOOD INC INC VENIPUNCT URE ECG 53510 SHARLA BANG JR ROUTINE 5 [facility] W/LEAST P 12 LDS I&R ONLY ECG 38251 SHARLA MAGDALENO ROUTINE [address] [facility] HOSP ECG INC INC W/LEAST 12 LDS TRCG ONLY W/O I&R COMPREHEN 81975 SHARLA MAGDALENO SIVE [address] [facility] HOSP METABOLIC INC INC PANEL BLOOD 24106 SHARLA MAGDALENO COUNT [address] [facility] HOSP COMPLETE INC INC AUTO&AUTO DIFRNTL WBC HOSPITAL G0463 SHARLA MAGDALENO OUTPATIEN [address] [facility] HOSP T CLIN INC INC VISIT ASSESS & MGMT PT RADIOLOGI 77622 [place] 5 MEDICAL ALEJANDRA EXAMINATI IMAGING ON CHEST ASS SING[place]IEW FRONTAL ECG 05679 SHARLA BANG JR ROUTINE 5 [facility] W/LEAST P 12 LDS I&R ONLY THERAPEUT 04337 SHARLA MAGDALENO IC [address] [facility] HOSP INJECTION INC INC [place]USH [place] 13547 [facility] [address] [facility] ATTENUATI ON SKULL BASE MID-THIGH FLUORODEO A9552 [facility] XYGLUCOSE 5 Y Y F-18 FDG [facility] DX UP TO 45 MCI INJECTION J1642 SHARLA MAGDALENO HEPARIN [address] [facility] HOSP SODIUM INC INC PER 10 UNITS BLOOD 12946 SHARLA MAGDALENO COUNT [address] [facility] HOSP COMPLETE INC INC AUTO&AUTO DIFRNTL WBC COMPREHEN 66519 SHARLA MAGDALENO SIVE 5 [facility] METABOLIC INC INC PANEL THERAPEUT 50645 [facility] IC 5 Y Y INJECTION HOSPITAL HOSPITAL IV PUSH EACH NEW DRUG CHEMOTX 68944 [facility] ADMN IV 5 Y Y NFS TQ EA [facility] SEQL NFS TO 1 HR INJECTION J9267 [facility] 5 Y Y PACLITAXE [facility] L 1 MG INFUSION J7040 [facility] NORMAL 5 Y Y SALINE [facility] SOLUTION STERILE CHEMOTHER 74252 [facility] APY ADMN 5 Y Y IV HOSPITAL HOSPITAL INFUSION TQ EA HR INJECTION J2060 [facility] 5 Y Y LORAZEPAM [facility] 2 MG INJECTION J9045 [facility] 5 Y Y CARBOPLAT [facility] IN 50 MG DEXAMETHA J8540 [facility] SONE ORAL 5 Y Y 0.25 [facility] H[facility]PITAL HOSPITAL INFUSION J7050 [facility] NORMAL 5 Y Y SALINE [facility] SOLUTION 250 CC INJECTION J1200 [facility] 5 Y Y DIPHENHYD [facility] RAMINE HCL UP TO 50 MG INJ J1720 [facility] HYDROCORT 5 [facility] SOD[facility] SUCCIN[facility] TO 100 MG ONDANSETR Q0162 [facility] ON 1 MG 5 Y Y ORL NOT [facility] EXCEED 48 HR DOSE REG CHEMOTX 46404 [facility] ADMN IV 5 Y Y NFS TQ [facility] 1 HR SBST/DRUG INJECTION J1642 SHARLA MAGDALENO HEPARIN 5 [facility] SODIUM INC INC PER 10 UNITS BLOOD 76854 SHARLA MAGDALENO COUNT 5 [facility] COMPLETE INC INC AUTO&AUTO DIFRNTL WBC COMPREHEN 85852 SHARLA MAGDALENO SIVE 5 [facility] METABOLIC INC INC PANEL IRRIGAJ 02523 SHARLA MAGDALENO IMPLNTD 5 [facility] VENOUS INC INC ACCESS DRUG DELIVERY SYST BLOOD 81423 SHARLA MAGDALENO COUNT 5 [facility] COMPLETE INC INC AUTO&AUTO DIFRNTL WBC INJECTION J1642 SHARLA MAGDALENO HEPARIN 5 [facility] SODIUM INC INC PER 10 UNITS COLLECTIO 94787 SHARLA MAGDALENO N VENOUS 5 [facility] BLOOD INC INC VENIPUNCT URE COMPREHEN 44803 SHARLA MAGDALENO SIVE 5 [facility] METABOLIC INC INC PANEL INSJ PRPH 97155 [facility] CVC W/O 5 Y Y SUBQ [facility] PORT/MEN'S GARMENT FITTER AGE 5 YR/> DEXAMETHA J8540 [facility] SONE ORAL 5 Y Y 0.25 [facility]PITAL INJECTION J1200 [facility] UP TO 50 MG INFUSION J7050 [facility] NORMAL 5 Y Y SALINE [facility] SOLUTION 250 CC INJECTION J2060 [facility] 5 Y Y LORAZEPAM [facility] 2 MG BLOOD 46277 [facility] COUNT 5 Y Y [facility] AUTO&AUTO DIFRNTL WBC INJ J1720 [facility] HYDROCORT 5 Y Y ISONE [facility] SODIUM SUCCINATE TO 100 MG CHEMOTX 19592 [facility] ADMN IV 5 Y Y NFS TQ [facility] 1 HR SBST/DRUG ONDANSETR Q0162 [facility] ON 1 MG 5 Y Y ORL NOT [facility] EXCEED 48 HR DOSE REG CHEMOTHER 28846 [facility] APY ADMN 5 Y Y IV HOSPITAL HOSPITAL INFUSION TQ EA HR INJECTION J9267 [facility] 5 Y Y PACLITAXE [facility] L 1 MG INFUSION J7040 [facility] NORMAL 5 Y Y [facility] SOLUTION STERILE CHEMOTX 88971 [facility] ADMN IV 5 Y Y NFS TQ [facility] SEQL NFS TO 1 HR COMPREHEN 80280 [facility] SIVE 5 Y Y METABOLIC [facility] PANEL THERAPEUT 63046 [facility] IC 5 Y Y INJECTION [facility] IV PUSH EACH NEW DRUG LOCM Q9967 [facility] 300-399 5 Y Y MG/ML HOSPITAL HOSPITAL IODINE CONCENTRA TION PER ML CT SOFT 69686 [facility] TISSUE 5 Y Y NECK [facility] W/[place] [address] [facility] ABDOMEN & 5 Y Y PELVIS [facility] W/CONTRAS T MATERIAL CT THORAX 98116 [facility] 5 Y Y W/[facility] T MATERIAL ANESTHESI 33400 [place] PANAMANIAN A VAGINAL 5 MEDICAL DESHAUN SERVICES PROCEDURE W/BIOPSY NOS INJECTION J2405 [facility] 5 Y [facility] PER 1 MG INSERTION 47447 [facility] UTERINE 5 Y Y TANDEM&/V [facility] AGINAL OVOIDS REMOTE 61687 [facility] AFTL 5 Y Y RADIONUCL [facility] MATTIE BRACHYTX 2-12 CHANNEL INJECTION J2250 [facility] 5 Y Y MIDAZOLAM [facility] HCL PER 1 MG INJECTION J1200 [facility] 5 Y Y DIPHENHYD [facility] RAMINE HCL UP TO 50 MG INFUSION J7030 [facility] NORMAL 5 Y Y SALINE [facility] SOLUTION 1000 CC THER RAD 85256 [facility] SIMULAJ-A 5 Y Y [employer] FIELD SETTING COMPLEX INJECTION J2704 [facility] PROPOFOL 5 Y Y 10 MG HOSPITAL HOSPITAL INJECTION J3010 [facility] FENTANYL 5 Y Y CITRATE [facility] 0.1 MG CONTINUIN 73351 [facility] G MEDICAL 5 Y Y PHYSICS [facility] CONSLTJ TX WK BRACHYTX C1717 [facility] NONSTRAND 5 Y Y ED HI [facility] DOSE IRIDIUM-1 92 PER SRC BRACHYTX 66781 [facility] ISODOSE 5 Y Y PLN [facility] INTERMED W/[place] [address] [facility] DEVICES 5 Y Y DESIGN & [facility] CONSTRUCT ION SIMPLE INJECTION J1100 [facility] 5 Y Y DEXAMETHO [facility] SONE SODIUM PHOSPHATE 1 MG INJECTION J2175 [facility] 5 Y Y [facility] E HCL PER 100 MG INJECTION J1170 [facility] 5 Y Y HYDROMORP [facility] RADHA UP TO 4 MG INJECTION J2175 [facility] 5 Y Y [facility] E HCL PER 100 [place] [address] AYSE TAVERA DEVICES 5 MEDICAL MEDICAL DESIGN & SERV SERV CONSTRUCT FOUNDATIO FOUNDATIO ION N N SIMPLE BRACHYTX 64831 AYSE BONNERNEREIDA ISODOSE 5 MEDICAL CHRISTINAO PLN SERV INTERMED FOUNDATIO W/DOSIMET N RY [place] BRACHYTX C1717 [facility] 5 Y Y ED [facility] DOSE IRIDIUM-1 92 PER SRC CONTINUIN 92561 [facility] 5 Y Y [facility] CONSLTJ TX WK INJECTION J2704 [facility] 5 Y Y 10 MG [facility] THER RAD 67359 AYSE KATHLEEN FERNANDEZ-A 5 MEDICAL CHRISTIANO IDED SERV FIELD FOUNDATIO SETTING N COMPLEX INJECTION J1200 [facility] 5 Y Y [facility] HCL UP TO 50 MG REMOTE 93553 AYSE BONNERNEREIDA FLORIANTLD 5 MEDICAL CHRISTIANO RADIONUCL SERV MATTIE FOUNDATIO BRACHYTX N 2-12 CHANNEL INSERTION 21780 [facility] 5 Y Y TANDEM&/V HOSPITAL HOSPITAL AGINAL OVOIDS ANESTHESI 80101 AYSE CORTEZ A VAGINAL 5 MEDICAL DESHAUN SERVICES PROCEDURE W/BIOPSY NOS ANESTHESI 09333 [place] JUSTIN A VAGINAL 5 MEDICAL CRY SERVICES PROCEDURE W/BIOPSY NOS INSERTION 45330 AYSE WANG UTERINE 5 MEDICAL CHRISTIANO TANDEM&/V SERV AGINAL FOUNDATIO OVOIDS N REMOTE 13670 AYSE BONNERNEREIDA AFTLD 5 MEDICAL CHRISTIANO RADIONUCL SERV MATTIE FOUNDATIO BRACHYTX N 2-12 CHANNEL INJECTION J2250 [facility] 5 Y Y [facility] HCL PER 1 MG THER RAD 95276 AYSE KATHLEEN SCHWABULAJ-A 5 MEDICAL [place]RISTIAN[place] IDED SERV [place] [address] [place] Comecer DEVICES 5 MEDICAL CHRISTIANO DESIGN & SERV CONSTRUCT FOUNDATIO ION N SIMPLE INJECTION J3010 [facility] FENTANYL 5 Y Y CITRATE [facility] 0.1 MG BRACHYTX 48324 [place] [facility] ISODOSE 5 MEDICAL CHRISTIANO PLN SERV INTERMED FOUNDATIO W/DOSIMET N RY CLAVIN RADIATION 34420 [facility] 5 Y Y TREATMENT [facility] DELIVERY 1 MEV => COMPLEX RADIATION 18040 [facility] 5 Y Y TREATMENT [facility] DELIVERY 1 MEV => COMPLEX RADIATION 19214 [facility] 5 Y Y TREATMENT [facility] DELIVERY 1 MEV => COMPLEX COMPREHEN 28262 [facility] 5 Y Y METABOLIC [facility] PANEL COLLECTIO 86272 [facility] VENOUS 5 Y Y BLOOD [facility] VENIPUNCT URE ONDANSETR Q0162 [facility] ON 1 MG 5 Y Y ORL [facility] EXCEED 48 HR DOSE REG CHEMOTX 00696 [facility] ADMN IV 5 Y Y NFS TQ UP [facility] 1 HR SBST/[place] [address] [facility] INFUSION 5 Y Y THERAPY [facility] PROPHYLAX IS/DX EA HOUR INJECTION J3480 [facility] 5 Y Y POTASSIUM [facility] CHLORIDE PER 2 MEQ INFUSION J7030 [facility] NORMAL 5 Y Y SALINE [facility] SOLUTION 1000 CC DEXAMETHA J8540 [facility] SONE ORAL 5 Y Y 0.25 MG [facility] APREPITAN J8501 [facility] T ORAL 5 5 Y Y MG HOSPITAL [facility]OSPITAL INJECTION J9060 [facility] 5 Y Y CISPLATIN [facility] POWDER OR SOLUTION 10 MG BLOOD 52223 [facility] COUNT 5 Y Y COMPLETE [facility] AUTO&AUTO DIFRNTL WBC INFUSION J7040 [facility] NORMAL 5 Y Y SAL[place] [address] [facility] INFUSION 5 Y Y THER [facility] PROPH ADDL SEQUENTIA L TO 1 HR INJECTION J3475 [facility] 5 Y Y [facility] SULPHATE PER 500 MG RADIATION 57145 [facility] 5 Y Y [facility] HOSPITAL DELIVERY 1 MEV => COMPLEX RADIATION 30670 [facility] 5 Y Y [facility]MENT [facility]OSPITAL HOSPITAL DELIVERY 1 MEV => COMPLEX RADIATION 55990 [facility] FEDDOCK 5 MEDICAL CHRISTIANO TREATMENT SERV FOUNDATIO MANAGEMEN N T 5 TREATMENT S COLLECTIO 74609 [facility] VENOUS 5 Y Y BLOOD [facility] VENIPUNCT URE BASIC 80833 [facility] METABOLIC 5 Y Y PANEL [facility] CALCIUM TOTAL CULTURE 47320 [facility] BACTERIAL 5 Y Y HOSPITAL [facility] QUANTTATI VE COLONY COUNT URINE BLOOD 52415 [facility] 5 Y Y COMPLETE [facility] AUTOMATED CONTINUIN 77520 [facility] MEDICAL 5 Y Y PHYSICS [facility] CONSLTJ TX WK ECG 02545 [place] ROB LINDSAY ROUTINE 5 MEDICAL ECG SERV W/LEAST FOUNDATIO 12 LDS N I&R ONLY URNLS DIP 80475 [facility] 5 Y Y STICK/TAB HOSPITAL HOSPITAL LET REAGENT AUTO MICROSCOP Y ECG 76912 [facility] ROUTINE 5 Y Y ECG [facility] W/LEAST 12 LDS TRCG ONLY W/O I&R THERAPEUT 51608 [facility] 5 Y Y RADIOLOGY HOSPITAL [facility] PORT IMAGES(S) RADIATION 70332 [facility] 5 Y Y TREATMENT HOSPITAL HOSPITAL DELIVERY 1 MEV => COMPLEX RADIATION 94920 [facility] 5 Y Y [facility] HOSPITAL DELIVERY 1 MEV => COMPLEX RADIATION 37579 [facility] 5 Y Y [facility]MENT [facility]OSPITAL HOSPITAL DELIVERY 1 MEV => COMPLEX COMPREHEN 82867 [facility] 5 Y Y [facility] HOSPITAL PANEL COLLECTIO 84078 [facility] VENOUS 5 Y Y B[place] [facility] [address] [facility] INFUSION 5 Y Y THERAPY HOSPITAL [facility] PROPHYLAX IS/DX EA HOUR CHEMOTX 05312 [facility] ADMN IV 5 Y Y NFS TQ UP [facility] 1 HR SBST/DRUG ONDANSETR Q0162 [facility] ON 1 MG 5 Y Y ORL NOT [facility] EXCEED 48 HR DOSE REG INJECTION J9060 [facility] 5 Y Y CISPLATIN [facility] POWDER OR SOLUTION 10 MG DEXAMETHA J8540 [facility] SONE ORAL 5 Y Y 0.25 [facility]OSPITAL INFUSION J7030 [facility] NORMAL 5 Y Y SALINE [facility] SOLUTION 1000 CC INFUSION J7050 [facility] NORMAL 5 Y Y SALINE [facility] SOLUTION 250 CC INJECTION J3480 [facility] 5 Y Y POTASSIUM [facility] CHLORIDE PER 2 MEQ BLOOD 59259 [facility] COUNT 5 Y Y COMPLETE [facility] AUTO&[place] [address]22 [facility] 5 Y Y PROPHYLAX [facility] IS/DX CONCURREN T NFS INFUSION J7040 [facility] NORMAL 5 Y Y SALINE [place] [address] [facility] 5 Y Y THER [facility] PROPH ADDL SEQUENTIA L TO 1 HR INJECTION J3475 [facility] 5 Y Y MAGNESIUM [facility] SULPHATE PER 500 MG INJECTION J1453 [facility] 5 Y Y FOSAPREPI [facility] TANT 1 MG AMB A0427 [facility] SERVICE 5 [place] ALS URBAN URBAN EMERGENCY COGOVT COGOVT TRANSPORT LEVEL 1 GROUND A0425 [facility] MILEAGE 5 [place] PER URBAN URBAN STATUTE COGOVT COGOVT MILE RADIATION 81581 [facility] 5 Y Y TREATMENT [facility] DELIVERY 1 MEV => COMPLEX RADIATION 57182 [facility] 5 Y Y TREATMENT [facility] DELIVERY 1 MEV => COMPLEX RADIATION 95103 [facility] MEDICAL CHRISTIANO TREATMENT SERV FOUNDATIO MANAGEMEN N T 5 TREATMENT S THERAPEUT 64381 [facility] IC 5 Y Y RADIOLOGY HOSPITAL [facility] PORT IMAGES(S) GLUCOSE 82375 [facility] QUANTITAT 5 Y Y VINCENT BLOOD [facility] XCPT REAGENT STRIP CONTINUIN 41641 [facility] G MEDICAL 5 Y Y PHYSICS HOSPITAL [facility] CONSLTJ TX WK RADIATION 63196 [facility] 5 Y Y TREATMENT [facility] DELIVERY 1 MEV => COMPLEX COLLECTIO 73474 [facility] N VENOUS 5 Y Y BLOOD [facility] VENIPUNCT URE RADIATION 92036 [facility] 5 Y Y TREATMENT [facility] DELIVERY 1 MEV => COMPLEX COMPREHEN 67849 [facility] SIVE 5 Y [place] [address] [facility] 5 Y Y THERAPY [facility] PROPHYLAX IS/DX EA HOUR CHEMOTX 68887 [facility] ADMN IV 5 Y Y NFS [facility] 1 HR SBST/DRUG ONDANSETR Q0162 [facility] ON 1 MG 5 Y Y ORL NOT [facility] EXCEED 48 HR DOSE REG DEXAMETHA J8540 [facility] SONE ORAL 5 Y Y 0.25 [facility]OSPITAL INJECTION J9060 [facility] 5 Y Y CISPLATIN [facility] POWDER OR SOLUTION 10 MG INJECTION J3480 [facility] 5 Y Y POTASSIUM [facility] CHLORIDE PER 2 MEQ APREPITAN J8501 [facility] T ORAL 5 5 Y Y MG HOSPITAL [facility]OSPITAL INFUSION J7030 [facility] NORMAL 5 Y Y SALINE [facility] SOLUTION 1000 CC BLOOD 06046 [facility] COUNT 5 Y Y COMPLETE [facility] AUTO&AUTO DIFRNTL WBC INJECTION J3475 [facility] 5 Y Y MAGNESIUM [facility] SULPHATE [place] 500 [place] [address] [facility] INFUSION 5 Y Y THER [facility] PROPH ADDL SEQUENTIA L TO 1 HR INFUSION J7040 [facility] NORMAL 5 Y Y [facility] SOLUTION STERILE RADJ DLVR 16006 [facility] 3/> 4 Y Y [facility] 08-16MEV RADJ DLVR 82288 [facility] 3/> 4 Y Y [facility] 08-16MEV THERAPEUT 71253 [facility] [place] 4 Y Y RADIOLOGY [facility] PORT IMAGES(S) RADIATION 76375 [place] 4 MEDICAL CHRISTIANO TREATMENT SERV FOUNDATIO MANAGEMEN N T 5 TREATMENT S RADJ DLVR 59946 [facility] 3/> 4 Y Y [facility] -MEV CONTINUIN 17817 [facility] Y Y PHYSICS [facility] CONSLTJ [place] WK RADJ DLVR 36453 [facility] 3/> 4 Y Y [facility] [place] 08-16[place] [address] [facility] HEAD/BRAI 4 MEDICAL FLA N W/O & SERV W/CONTRAS FOUNDATIO T N MATERIAL LOCM Q9967 [facility] 300-399 4 Y Y MG/ML [facility] IODINE CONCENTRA TION PER ML RADJ DLVR 17741 [facility] 3/> 4 Y Y [facility] 08-16MEV RADJ DLVR 41628 [facility] 3/> 4 Y Y [facility] 08-16MEV RADJ DLVR 92006 [facility] 3/> 4 Y Y [facility] 08-16MEV INJECTION J9060 [facility] 4 Y Y CISPLATIN [facility] POWDER OR SOLUTION 10 MG DEXAMETHA J8540 [facility] SONE ORAL 4 Y Y 0.25 [facility] INFUSION J7030 [facility] NORMAL 4 Y Y SALINE [facility] SOLUTION 1000 CC APREPITAN J8501 [facility] T ORAL 5 4 Y Y [facility] INJECTION J3480 [facility] 4 Y Y P[facility]AS[facility]UM [facility] CHLORIDE PER 2 MEQ BLOOD 97364 [facility] COUNT 4 Y Y COMPLETE [facility] AUTO&AUTO DIFRNTL WBC COMPREHEN 78729 [facility] SIVE 4 Y Y METABOLIC [facility] PANEL COLLECTIO 62796 [facility] N VENOUS 4 Y Y [place]OD [facility] [address] [facility] INFUSION 4 Y Y THERAPY [facility] PROPHYLAX IS/DX EA HOUR CHEMOTX 52873 [facility] ADMN IV 4 Y Y NFS [facility] 1 HR SBST/DRUG ONDANSETR Q0162 [facility] ON 1 MG 4 Y Y ORL NOT [facility] EXCEED 48 [place] [address] [facility] INFUSION 4 Y Y THER [facility] PROPH ADDL SEQUENTIA L TO 1 HR INJECTION J3475 [facility] 4 Y Y MAGNESIUM [facility] SULPHATE PER 500 MG INFUSION J7040 [facility] NORMAL 4 Y Y SALINE [facility] SOLUTION STERILE RADIATION 73561 [facility] 4 MEDICAL JOSÉ TREATMENT SERV FOUNDATIO MANAGEMEN N T 5 TREATMENT S THERAPEUT 87354 [facility] IC 4 Y Y RADIOLOGY [facility] PORT IMAGES(S) RADJ DLVR 80217 [facility] 3/> 4 Y Y [facility] 08-16MEV CONTINUIN 58251 [facility] G MEDICAL 4 Y Y PHYSICS [facility] CONSLT [place] WK RADJ DLVR 28543 [facility] 3/> 4 Y Y [facility] 08-16MEV RADJ DLVR 36372 [facility] 3/> 4 Y Y [facility] 08-16MEV RADJ DLVR 18103 [facility] 3/> 4 Y Y [facility] [facility] [id number] DEXAMETHA [id number] [facility] SONE ORAL 4 Y Y 0.25 [facility] H[facility] H[facility]PITAL INJECTION J9060 [facility] 4 Y Y CISPLATIN [facility] POWDER OR SOLUTION 10 MG APREPITAN J8501 [facility] T ORAL 5 4 Y Y MG HOSPITAL H[facility]PITAL INFUSION J7030 [facility] NORMAL 4 Y [facility] SOLUTION 1000 CC BLOOD 94337 [facility] COUNT 4 Y Y [facility]TE [facility] AUTO&AUTO DIFRNTL WBC INJECTION J3480 [facility] 4 Y Y POTASSIUM [facility] CHLORIDE PER 2 MEQ COMPREHEN 44835 [facility] SIVE 4 Y Y METABOLIC [facility] HOSPITAL PANEL COLLECTIO 75349 [facility] N VENOUS 4 Y Y BLOOD [facility] VENIPUNCT URE ONDANSETR Q0162 [facility] ON 1 MG 4 Y Y ORL NOT HOSPITAL HOSPITAL EXCEED 48 HR DOSE REG CHEMOTX 19602 [facility] ADMN IV 4 Y Y NFS TQ UP [facility] 1 HR SBST/[place] [address] [facility] INFUSION 4 Y Y THERAPY [facility] PROPHYLAX IS/DX EA HOUR INJECTION J3475 [facility] 4 Y Y MAGNESIUM [facility] SULPHATE PER 500 MG INFUSION J7040 [facility] NORMAL 4 Y Y [facility] [address] [facility] INFUSION 4 Y Y THER [facility] PROPH ADDL SEQUENTIA L TO 1 HR THER RAD 47111 [facility] 4 Y Y [employer] FIELD SETTING SIMPLE RADIATION 78558 [facility] TREATMENT SERV FOUNDATIO MANAGEMEN N T 5 TREATMENT S RADJ DLVR 81270 [facility] 3/> 4 Y Y AREAS [facility] CUSTOM BLKING 11-19MEV 3-D 18205 [facility] RADIOTHER 4 Y Y [facility] DOSE-VOLU ME HISTOGRAM S BASIC 68924 [facility] RADIATION 4 Y Y [facility] [place] [address] [facility] DEVICES 4 Y Y DESIGN & HOS[place] [address] [facility] GUIDANCE 4 Y Y RADIATION [facility] HOSPITAL THERAPY FLDS PLACEMENT THERAPEUT 55192 [place] [facility] IC 4 MEDICAL CHRISTIANO RADIOLOGY SERV TX FOUNDATIO PLANNING N COMPLEX THER RAD 87392 [facility] SIMULAJ-A 4 Y Y IDED [facility] FIELD SETTING COMPLEX FLUORODEO A9552 [facility] XYGLUCOSE 4 Y Y F-18 FDG [facility] DX UP TO 45 [place]CI PET 74556 [facility] IMAGING [address] [facility] ATTENUATI ON SKULL BASE MID-THIGH CT THORAX 33837 [facility] 4 Y Y W/CONTR[place] [address] [facility] ABDOMEN & 4 Y Y PELVIS [facility] W/[facility] T MATERIAL LOCM Q9967 [facility] 300-399 4 Y Y MG/ML [facility] IOD[place] [address] [facility] SURG 4 Y OF PATHOLOGY [place] [facility] GROSS&JAMES ROSCOPIC EXAM PATH 79179 [facility] CONSLTJ 4 Y OF SURG 1ST [place] BLK [facility]OS[facility] FROZEN SCTJ 1 SPEC IMHISTOCH 36419 [facility] EM/CYTCHM 4 Y [place] [address] [place] [address] [facility] STAIN PROCEDURE ANES 94897 [facility] HYSTEROSC 4 LTH MAR OPY&/HYST ANESTHESI EROSALPIN A PSC GOGRAPHY W/BX HYSTEROSC 57521 [facility] OPY BX 4 MEDICAL MAR ENDOMETRI SERV UM&/POLYP FOUNDATIO C W/WO N D&C BLOOD 12922 [facility] COUNT 4 Y Y HEMOGLOBI [facility] N BLOOD 99623 [facility] COUNT 4 Y Y HEMATOCRI [facility] T URINE 69455 AYSE STOKES 4 MEDICAL MAR TEST SERV VISUAL FOUNDATIO COLOR N CMPRSN METHS COLLECTIO 68183 [facility] N VENOUS 4 Y Y BLOOD [facility] VENIPUNCT URE CYTP 10620 [facility]NER CERVICAL/ 4 Y OF MILAGROS VAGINAL [place] REQ HOSPI INTERP PHYSICIAN CYTP C/V 38311 [facility] AUTO THIN 4 Y Y LYR [facility] [place] [address] [facility] AYSE CHANG TRANSVAGI 4 RADIOLOGY NAL AMBULANCE A0429 [facility] SERVICE 4 [facility] EMERGENCY EMS EMS TRANSPORT GROUND A0425 [facility] MILEAGE [facility] [place] [address] CNTRL AYSE CHANG ABDOMEN & 4 RADIOLOGY PELVIS W/CONTRAS T MATERIAL BLOOD 60208 [facility] SW[facility]Y OCCULT 4 PAT PAT PEROXIDAS E ACTV QUAL FECES 1-3 [facility] 02201 [facility] DISCHARGE 3 Y OF YASH DAY [place] MANAGEMEN PEDIA T 30 MIN/< SBSQ HOSP 99271 [facility] CARE 3 Y OF YASH F/E/M NML [place] NB TX D PEDIA HX&XM NML 61607 [facility] NB INFT 3 Y OF YASH INITIATIO [place] N DX&TX PEDIA Encounters Encounter Start End Date Code Location Performer Type Date [facility] SH[facility]LA - 7 7 [facility] SHARLA - 7 7 [facility] OUTPATIEN [facility] OFFICE 78437 [facility] PHYSICIAN T VISIT S GROUP 15 MINUTES EMERGENCY 80102 [facility] DEPT 7 7 PHYSICIAN VISIT S, PLLC HIGH SEVERITY& THREAT FUNCJ EMERGENCY [address] SHARLA [address] [facility] VISIT HIGH/URGE NT SEVERITY HOSPITAL SH[facility]LA - 7 7 [facility] OUTPATIEN [facility] SHARLA - 7 7 [facility] OUTPATIEN [facility] SHARLA - 7 7 [facility] OUTPATIEN [facility] SHARLA - 7 7 [facility] OUTPATIEN [facility] SHARLA - 7 7 [facility] OUTPATIEN INC T OFFICE 69436 [facility] [place] OUTPATIEN 7 7 PHYSICIAN T VISIT S GROUP 25 MINUTES EMERGENCY 82309 [facility] HAMMONDS 7 7 [facility]MEN [facility] H[facility]/URGE NT SEVERITY EMERGENCY 21237 [facility] BABC[facility] DEPT 7 7 PHYSICIAN VISIT S, [facility] HIGH SEVERITY& THREAT FUNCJ EMERGENCY 12272 [facility] GRAMAJO DEPT 7 7 PHYSICIAN VISIT S, [facility] HIGH SEVERITY& THREAT FUN [facility] - 7 7 [facility] OUTPATIEN INC T EMERGENCY 64971 [facility] 7 7 [facility] DEPARTMEN INC T VISIT MODERATE SEVERITY EMERGENCY 28147 [facility]ABCOCK 7 7 PHYSICIAN DEPARTMEN S, PLLC T VISIT HIGH/URGE NT SEVERITY OFFICE 61357 [facility] 7 7 PHYSICIAN T VISIT S GROUP 25 MINUTES HOSPITAL [facility] - 7 7 [facility] OUTPATIEN INC T OFFICE 43819 [facility] [place] OUTPATI[facility] 7 7 PHYSICIAN T VISIT S GROUP 25 MINUTES HOSPITAL [facility] - 7 7 [facility] OUTPATIEN INC T EMERGENCY 32322 [facility] BABCOCK 7 7 PHYSICIAN DEPARTMEN S, PLLC T VISIT HIGH/URGE NT SEVERITY EMERGENCY 73258 [facility] 7 7 [facility] DEPARTMEN INC T VISIT LOW/MODER SEVERITY [facility]OSPITAL [facility] - 7 7 [facility] OUTPATIEN INC T EMERGENCY 40832 [facility] 7 7 [facility] DEPARTMEN INC T VISIT MODERATE SEVERITY EMERGENCY 72609 [facility] SARGENT 7 7 PHYSICIAN U DEPARTMEN S, PLLC T VISIT HIGH/URGE NT SEVERITY [facility]OSPITAL [facility] - 7 7 [facility] OUTPATIEN INC T OFFICE 26820 [facility] OUTPATIEN 7 7 PHYSICIAN T VISIT S GROUP 25 MINUTES OFFICE 93985 [facility] ALLRAN JR OUTPATIEN 7 7 PHYSICIAN T VISIT S GROUP 15 MINUTES HOSPITAL [facility] - 7 7 [facility] OUTPATIEN INC T [facility]OSPITAL [facility] - 7 7 [facility] OUTPATIEN INC T OFFICE 54520 [facility] OUTPATIEN 7 7 PHYSICIAN T VISIT S GROUP 25 MINUTES HOSPITAL [facility] - 7 7 [facility] OUTPATIEN INC T OFFICE 20138 [facility] YMALEX OUTPATIEN 7 7 PHYSICIAN T NEW 30 S GROUP MINUTES EMERGENCY 09686 [facility] BABCOCK 7 7 PHYSICIAN KADEMEN S, [facility] T VISIT MODERATE SEVERITY [facility]OSPITAL [facility] - 7 7 [facility] OUTPATIEN INC T OFFICE 02580 [facility] ALLRAN JR OUTPATIEN 7 7 PHYSICIAN T VISIT S GROUP 10 MINUTES HOSPITAL [facility] - 7 7 [facility] OUTPATIEN INC T OFFICE 77986 [facility] MICHELLE OUTPATIEN 6 6 [facility] VISIT [facility] 15 P MINUTES HOSPITAL SHARLA - 6 6 [facility] OUTPATIEN INC T OFFICE 34157 [facility] MICHELLE OUTPATIEN 6 6 [facility] VISIT HOSPITAL 10 P MINUTES EMERGENCY 56285 [facility] HAMMONDS 6 6 PHYSICIAN DEBBY GOSS S, [facility] T VISIT HIGH/URGE NT SEVERITY EMERGENCY 17268 [facility]ABC[facility] DEPT 6 6 PHYSICIAN JAMES VISIT S, PLLC HIGH SEVERITY& THREAT FUNCJ EMERGENCY 60328 [facility] 6 6 [facility] DEPARTMEN INC T VISIT MODERATE SEVERITY [facility]OSPITAL [facility] - 6 6 [facility] OUTPATIEN INC T EMERGENCY 82647 [facility] 6 6 PHYSICIAN DEPARTMEN S, [facility] T VISIT HIGH/URGE NT SEVERITY EMERGENCY 88262 [facility] BABC[facility] DEPT 6 6 PHYSICIAN JAMES VISIT S, [facility] HIGH SEVERITY& THREAT [facility] 28921 [facility] MAC DEPT 5 5 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 SERVICE MANAGER VISIT HIGH SEVERITY& THREAT [facility] OFFICE 24259 MICHELLE MICHELLE OUTPATIEN 5 5 PHI PHI T VISIT 5 MINUTES HOSPITAL [facility] - 5 5 [facility] OUTPATIEN INC T [facility]OSP[facility] - 5 5 [facility] OUTPATIEN INC T OFFICE 39393 [facility] MICHELLE OUTPATIEN 5 5 [facility] PHI T VISIT 5 HOSPITAL MINUTES P [facility]OSP[facility] - 5 5 [facility] OUTPATIEN INC T OFFICE 06679 [facility] MICHELLE OUTPATIEN 5 5 [facility] PHI T VISIT 5 HOSPITAL MINUTES P OFFICE 95601 [facility] MICHELLE OUTPATIEN 5 5 [facility] PHI T VISIT 5 HOSPITAL MINUTES P [facility]OSPITAL [facility] - 5 5 [facility] OUTPATIEN INC T OFFICE 22249 [facility] MICHELLE OUTPATIEN 5 5 [facility] PHI T VISIT 5 HOSPITAL MINUTES [facility]OS[facility] - 5 5 [facility] OUTPATIEN INC T [facility]OSP[facility] - 5 5 [facility] OUTPATIEN INC T OFFICE 58059 [facility] OUT[facility]I 5 5 PHYSICIAN CAM T NEW 30 S GROUP [facility] SHARLA - [address] [facility] T EMERGENCY 90473 SHARLA BUENROSTRO 5 5 [facility] HIGH/URGE NT [facility] 5 5 [facility] OUTPATIEN [facility] UNIVERSIT - 5 5 [facility] 5 5 [facility] OUTPATI[facility] UNIVERSIT - 5 5 Y [facility]LA - 5 5 [facility] OUTPATIEN [facility] SHARLA - 5 5 [facility] OUTPATIEN [facility] SHARLA [facility] 5 5 [facility] OUTPATIEN [facility] UNIVERSIT - 5 5 Y [facility] - 5 5 Y [facility] - 5 5 Y [facility] - 5 5 Y [facility] T OFFICE 97292 [facility] 5 Y T [facility] 15 [facility] UNIVERSIT - 5 5 Y [facility] 5 5 Y [facility] - 5 5 Y [facility] - 5 5 Y [facility] - 5 5 Y [facility] 5 5 Y [facility] - 5 5 Y [facility] - 5 5 Y [facility] OFFICE 90137 [facility] 5 5 Y T VISIT [address] [place] [address] UNIVERSIT - 5 5 Y [facility] UNIVERSIT [facility] 5 5 Y [facility] UN[facility] - 5 5 Y [facility] EMERGENCY 15033 UNIVERSIT 5 5 Y [facility] UNIVERS[facility] - 5 5 Y [facility] - 5 5 Y [facility] - 5 5 Y [facility] - 5 5 Y [facility] - 4 4 Y [facility] - 4 4 Y [facility] - 4 4 Y [facility] - 4 4 Y [facility] - 4 4 Y [facility] - 4 4 Y [facility] - 4 4 Y [facility] - 4 4 Y [facility] - 4 4 Y [facility] - 4 4 Y [facility] - 4 4 Y [facility] - 4 4 Y [facility] UNIVERSIT - 4 4 Y [facility] T OFFICE 84345 [facility] 4 4 Y T VISIT HOSPITAL 15 MINUTES HOSPITAL UNIVERSIT - 4 4 Y [facility] T OFFICE 55335 [facility] 4 4 Y T VISIT HOSPITAL 40 MINUTES OFFICE 97565 AYSE WANG CONSULTAT 4 4 MEDICAL CHRISTIANO ION SERV NEW/ESTAB FOUNDATIO PATIENT N 80 MIN [facility] UNIVERSIT - 4 4 Y [facility] UNIVERSIT - 4 4 Y [facility] T OFFICE 08761 [facility] 4 [facility] T NEW [facility] UNIVERSIT [facility] 4 4 Y [facility] T OFFICE 14980 AYSE STOKES OUTPATIEN 4 4 MEDICAL MAR T NEW 30 SERV MINUTES FOUNDATIO N EMERGENCY 65990 AVILA MUÑOZ DEPT 4 4 VISIT HIGH SEVERITY& THREAT FUNJ EMERGENCY 13245 MATTHEW VORKPOR DEPT 4 4 [facility] VISIT HIGH SEVERITY& THREAT FUNJ EMERGENCY 18462 SWINEY SWINEY 4 4 PAT PAT DEPARTMEN T VISIT HIGH/URGE NT SEVERITY
--- OUTSIDE RECORDS SUMMARY | 2017-07-08 20:51 | External Medical Summary Rpt ---
Author Author , CESAR Organization CESAR Address Unknown Phone [email or web address] Care Team Providers Care Pari Mutuel Ticket Cashier Name Role Phone ABSNER MILAGROS, ABSMATEUS Unavailable Unavailable MILAGROS [employer] Unavailable Unavailable INC, [employer] Unavailable Unavailable INC, [employer] ALLRAN JR, ALLRAN JR Unavailable Unavailable AYOOB AND, AYOOB AND Unavailable Unavailable BEINEKE, BEINEKE Unavailable Unavailable STACY, STACY Unavailable Unavailable STACY ALL, STACY ALL [facility], [facility] Unavailable Unavailable DEPARTMENT, [facility] DE[facility] MÁRQUEZ JAM, MÁRQUEZ JAM Unavailable Unavailable CORTEZ DESHAUN, Unavailable Unavailable CORTEZ DESHAUN BUBBA FURNITURE FINISHER APPRENTICE, BUBBA Unavailable Unavailable FURNITURE FINISHER APPRENTICE BUBBA FURNITURE FINISHER APPRENTICE, BUBBA Unavailable Unavailable FURNITURE FINISHER APPRENTICE [facility], Unavailable Unavailable [facility] CASTILLO YASH, CASTILLO Unavailable Unavailable YASH [facility] Unavailable Unavailable [facility], [facility] Unavailable Unavailable [facility], [facility] МАРИЯ GAR, МАРИЯ Unavailable Unavailable GAR NICO ALEJANDRA, Unavailable Unavailable NICO ALEJANDRA MICHELLE, MICHELLE Unavailable Unavailable MICHELLE PHI, Unavailable Unavailable MICHELLE PHI MICHELLE PHI, Unavailable Unavailable MICHELLE PHI MERRITT SHIRA, MERRITT SHIRA Unavailable Unavailable BULGARIAN DESHAUN, BULGARIAN Unavailable Unavailable DESHAUN FAUGHN LAO, FAUGHN Unavailable Unavailable LAO FEDDOCK CHRISTIANO, FEDDOCK Unavailable Unavailable CHRISTIANO FEEBACK, FEEBACK Unavailable Unavailable FRYMAN, FRYMAN Unavailable Unavailable YOKO, YOKO Unavailable Unavailable YOKO JAMES, YOKO Unavailable Unavailable JAMES [facility] Unavailable Unavailable INC, [facility] Unavailable Unavailable HOSPITAL P, [facility] P [facility], Unavailable Unavailable [facility] STOKES MAR, STOKES Unavailable Unavailable MAR GRAMAJO, GRAMAJO Unavailable Unavailable GRAMAJO WANDA, GRAMAJO WANDA Unavailable Unavailable [facility], [facility] Un[facility], [facility] MERRITT JR, MERRITT JR Unavailable Unavailable MERRITT JR DWI, MERRITT Unavailable Unavailable JR DWI MAREK FAYETTE URBAN Unavailable Unavailable COGOVT, MAREK FAYETTE URBAN COGOVT MICHAELS MAR, MICHAELS Unavailable Unavailable MAR JERAMIE JOSÉ, JERAMIE Unavailable Unavailable JOSÉ [facility] Unavailable Unavailable EMS, [facility] Unavailable Unavailable EMS, [facility] [place] [place] Unavailable [facility]available [facility], Unavailable Unavailable PLL[facility], [...] PAT SWINEY PAT, SWINEY Unavailable Unavailable PAT [facility] Unavailable Unavailable HOSPITALS, [facility], Unavailable Unavailable [facility] VORKPOR NICOLÁS, VORKPOR Unavailable Unavailable NICOLÁS WEST K[place]E, WEST KAYLEE Unavailable Unavailable Purpose Continuity of Care Document - 02-14-2003 through 2016 Problems Code Diagnosis DOS Provider Status K811 CHRONIC 04-22-2017 [facility] CHOLECYSTIT PHYSICIANS IS GROUP K819 CHOLECYSTIT 04-22-2017 [facility] IS ANESTH OF UNSPECIFIED THE BLUE K828 OTHER 04-22-2017 [facility] SPECIFIED PHYSICIANS DISEASES OF GROUP GALLBLADDER Q16322 ENCOUNTER 04-20-2017 [facility] PREPROCEDUR INC AL LABORATORY EXAM [...] PAIN [facility] INC E663 OVERWEIGHT 02-13-2017 [facility] G629 POLYNEUROPA 02-13-2017 [facility] THY PHYSICIANS UNSPECIFIED GROUP M9983 OTHER 02-13-2017 [facility] BIOMECHANIC PHYSICIANS AL LESIONS GROUP OF LUMBAR REGION M546 PAIN IN 02-10-2017 [facility]ACIC [facility], SPINE PLLC R51 HEADACHE 02-05-2017 [facility] PLLC C539 MALIGNANT 01-22-2017 [facility] NEOPLASM OF MEDICAL CERVIX IMAGING ASS UTERI UNSPECIFIED K219 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-22-2017 [facility] P WITHOUT ESOPHAGITIS M542 CERVICALGIA 01-22-2017 [facility] N938 OTHER SPEC 01-22-2017 [facility] ABNORMAL PHYSICIANS, UTERINE & PLLC VAGINAL BLEEDING N939 ABNORMAL 01-22-2017 [facility] UTERINE & MEDICAL VAGINAL IMAGING ASS BLEEDING UNSPECIFIED R55 SYNCOPE AND 01-22-2017 [facility] COLLAPSE [facility] ASS [id number] UNSPECIFIED 01-22-2017 [place] INJURY OF MEDICAL HEAD IMAGING ASS INITIAL ENCOUNTER R083CUR UNSPECIFIED 01-22-2017 [place] INJURY OF MEDICAL NECK IMAGING ASS INITIAL ENCOUNTER Z720 TOBACCO USE 01-22-2017 [facility] P Z8541 PERSONAL 01-22-2017 [facility] HISTORY PHYSICIANS, MALIGNANT PLLC NEOPLASM CERVIX UTERI J50919 PAIN IN 01-16-2017 [facility] RIGHT FOOT [facility]ICAL [facility] ASS [id number] CONTUSION 01-16-2017 [facility] OF RIGHT PHYSICIANS, FOOT PLLC INITIAL ENCOUNTER [id number] UNSPECIFIED 01-16-2017 [facility] RIGHT FOOT S INC INITIAL ENCOUNTER G4762 SLEEP 01-14-2017 [facility] RELATED LEG PHYSICIANS CRAMPS GROUP M5127 OTH 01-14-2017 [place] INTERVERTEB MEDICAL RAL DISC IMAGING ASS DISPLACEMEN T LS REGION N342 OTHER 01-08-2017 [facility] URETHRITIS PHYSICIANS, [facility] R1030 LOWER 01-08-2017 [facility] ABDOMINAL MEDICAL PAIN IMAGING ASS UNSPECIFIED U77747 MIGRAINE 01-04-2017 [facility] W/O AURA PHYSICIANS, NOT INTRACT PLL W/O STAT MIGRAIN D128 BENIGN 12-30-2016 [facility] NEOPLASM OF PHYSICIANS RECTUM GROUP K6289 OTHER 12-30-2016 COMMUNITY SPECIFIED ANESTH OF DISEASES OF THE BLUE ANUS AND RECTUM K648 OTHER 12-30-2016 [facility] HEMORRHOIDS PHYSICIANS GROUP K649 UNSPECIFIED 12-30-2016 COMMUNITY ANESTH OF HEMORRHOIDS THE BLUE K629 DISEASE OF 12-18-2016 [facility] ANUS AND PHYSICIANS RECTUM GROUP UNSPECIFIED E039 HYPOTHYROID 11-05-2016 [facility] ISM PHYSICIANS UNSPECIFIED GROUP Z0000 ENCOUNTER 10-15-2016 [facility] GEN ADULT PHYSICIANS MED EXAM GROUP W/O ABNORMAL FIND [id number] STRAIN 10-13-2016 [facility] MUSCLE PHYSICIANS, FASCIA & PLLC TENDON LOW BACK INITIAL S62902O OTH [facility] 10-01-2016 [facility] COMP OTH ANESTH OF CARD VASC THE BLUE DEVC IMPL INIT ENC Z452 ENCOUNTER 10-01-2016 [facility] ADJUSTMENT& PHYSICIANS MGMT GROUP VASCULAR ACCESS DEVICE Z789 OTHER 09-29-2016 [facility] SPECIFIED PHYSICIANS HEALTH GROUP STATUS C569 MALIGNANT 09-05-2016 [place] NEOPLASM OF MEDICAL IMAGING ASS UNSPECIFIED OVARY C7989 SECONDARY 09-05-2016 [facility] MALIGNANT [facility] NEOPLASM INC OT SPECIFIED SITES S04522 MIGRAINE 08-20-2016 [facility] W/AURA NOT PHYSICIANS, INTRACT PLLC W/STATUS MIGRAINOSUS R05 COUGH 03-18-2016 [facility] P R0602 SHORTNESS 03-18-2016 [facility] BREATH MEDICAL IMAGING ASS H58034 MIGRAINE 02-04-2016 [facility] UNS NOT PHYSICIANS, INTRACT W/O PLLC STATUS MIGRAINOSUS R079 CHEST PAIN 12-01-2015 [place] UNSPECIFIED MEDICAL IMAGING ASS A34351L PAIN D/T 08-30-2015 [facility] IMPL & GRAFTS INITIAL N97152S OTH SPEC 08-30-2015 [facility] IMPL GFT INIT ENC R1012 LEFT UPPER 06-30-2015 BUBBA FURNITURE FINISHER APPRENTICE QUADRANT PAIN R109 UNSPECIFIED 06-30-2015 [place] ABDOMINAL MEDICAL PAIN IMAGING ASS R197 DIARRHEA 06-30-2015 BUBBA FURNITURE FINISHER APPRENTICE UNSPECIFIED 1809 MALIGNANT 04-25-2015 [facility] NEOPLASM PHI CERVIX UTERI UNSPECIFIED SITE 00548 SOLITARY 04-11-2015 [place] PULMONARY MEDICAL NODULE IMAGING ASS V1041 PERSONAL 04-11-2015 [place] HISTORY MEDICAL MALIGNANT IMAGING ASS NEOPLASM CERVIX UTERI V711 OBSERVATION 04-11-2015 [place] FOR MEDICAL SUSPECTED IMAGING ASS MALIGNANT NEOPLASM 1749 MALIGNANT 02-28-2015 [facility] NEOPLASM OF [facility] P UNSPECIFIED SITE 4660 ACUTE 01-24-2015 [facility] P 1991 OTHER 01-16-2015 [facility] MALIGNANT PHYSICIANS NEOPLASM OF GROUP UNSPECIFIED SITE V5881 FITTING AND 01-16-2015 [place] ADJUSTMENT MEDICAL OF IMAGING ASS VASCULAR CATHETER 2331 CARCINOMA 01-12-[address] [place] [address] [facility] P UTERI 64396 SHORTNESS 01-06-2015 [place] OF [facility] MEDICAL IMAGING ASS 67699 NAUSEA WITH 01-06-2015 [facility] P E9331 ANTINEOPLAS 01-06-2015 [place] TIC-IMMUNOS [facility] UPP [facility] P ADVRSE EFF [place] USE V5811 ENCOUNTER 01-02-2015 [facility] ANTINEOPLAS TIC CHEMOTHERAP Y 6268 OTH D/O 12-18-2014 [facility] N&OTH ABN BLEED FE GNT TRACT 5718 OTHER 12-01-2014 [place] [facility] C LIVER DISEASE 5939 UNSPECIFIED 12-01-2014 [place] [facility] DISORDER [facility] OF [facility]OUND[facility] AND URETER 7856 ENLARGEMENT 12-01-2014 [facility] NODES V580 RADIOTHERAP 10-30-2014 [facility] 179 MALIGNANT 10-23-2014 [facility] NEOPLASM OF [facility] UTERUS PART UNSPECIFIED 1800 MALIGNANT 10-19-2014 [place] [facility] NEOPLASM OF SERV ENDOCERVIX FOUNDATION 1968 SEC&UNSPEC 10-18-2014 [facility] NEOPLASM NODES MULTIPLE SITES 2859 UNSPECIFIED 10-04-2014 [facility] 6238 OTHER 10-04-2014 [facility] NONINFLAMMA TORY DISORDER VAGINA 83276 ABDOMINAL 10-04-2014 [place] [facility] PAIN, SERV UNSPECIFIED FOUNDATION SITE 44099 ABDOMINAL 10-04-2014 [facility] PAIN OTHER HOSPITAL SPECIFIED SITE V153 PERS HX 10-04-2014 [facility] PRESENTING [facility] 7840 HEADACHE 09-20-2014 [facility] 1820 MALIGNANT 09-08-2014 [facility] UTERI EXCEPT ISTHMUS 6262 EXCESSIVE 09-08-2014 [facility] N 1808 MALIGNANT 09-01-2014 [place] [facility] NEOPLASM SERV OTHER FOUNDATION SPECIFIED SITES CERVIX 66187 ABD/PELVIC 08-30-2014 [facility] MASS/LUMP OTH SPEC SITE 96989 NONGONOCOCC 08-15-2014 [facility] URETHRITIS DEPARTMENT DUE CHLAMYDTRAC HOMATIS 70038 MORBID 08-09-2014 [facility] ANESTHESIA PSC 6269 UNS D/O 08-07-2014 [facility] N&OTH ABN BLEED FE GNT TRACT V7241 08-07-2014 [place] [facility]AM[facility] SERV OR TEST FOUNDATION NEGATIVE RESULT 4590 UNSPECIFIED 08-03-2014 [facility] HEMORRHAGE [facility] 6259 UNSPEC 08-03-2014 [facility] W/FEMALE GENITAL ORGANS 1123 CANDIDIASIS 02-09-2014 [facility] PAT OF SKIN AND NAILS 56269 ANAL OR 02-09-2014 [facility] PAT RECTAL PAIN V3000 SINGLE 02-16-2003 [facility] PEDIA W/O Medications Na ND Rx Da Fi Fi Am Da Di Ph RX Ph St me C No te ll ll ou ys ag ar # ys at rm s nt no ma ic us Or Da si cy ia de te s n re d BU 69 09 10 60 30 00 HO Ac NJ 09 -1 -0 .0 00 ME ti [...] 08 09 60 30 00 HO Ac NJ 09 -1 -0 .0 00 ME ti OP 70 1- 8- 00 06 TO ve IO 87 20 20 09 WN N 80 17 17 05 HC 3 76 PH L AR SR MA CY 15 0 OF MG CY TA NT BL HI ET AN A NJ 68 07 08 14 4 00 HO [...] 07 08 60 30 00 HO Ac NJ 09 -1 -0 .0 00 ME ti [...] 06 07 60 30 00 HO Ac NJ 00 -1 -1 .0 00 ME ti [...] 17 17 30 TA 5 04 PH WY AR N- MA CA CY FF OF [...] 20 9- 6- 00 06 TO ve NJ 05 20 20 08 WN AM 35 [...] 1 40 PH CE AR TA MA WY CY NO PH #3 EN 93 8 5- 32 5 NA 68 05 06 14 7 00 HO Ac NJ 46 -1 -0 .0 00 ME ti [...] 2 67 PH CE AR TA MA WY CY NO PH OF EN CY 5- [...] 2 26 PH CE AR TA MA WY CY NO PH OF EN CY 5- NT 32 HI 5 AN A CI 16 04 05 14 7 00 HO Ac NJ 57 -1 -1 .0 00 ME ti [...] 2 24 PH CE AR TA MA WY CY NO PH OF EN CY 5- [...] 2 34 PH CE AR TA MA WY CY NO PH OF EN CY 5- NT 32 HI 5 AN A CY 00 01 02 15 5 00 HO Ac CL 60 -1 -1 .0 00 ME ti OB 33 7- 0- 00 06 TO ve EN 07 20 20 07 WN ZA 93 17 17 96 NJ 2 42 PH IN AR E MA 10 CY MG OF TA CY BL NT ET HI AN A NJ 59 01 02 10 5 00 HO Ac ED 74 -1 -1 .0 00 ME ti NI 60 7- 0- 00 06 TO ve SO 17 20 20 07 WN NE 50 17 17 96 9 43 PH 20 AR MA MG CY TA OF BL ET CY NT HI AN A NJ 68 01 02 12 30 00 HO [...] 5 73 AR CE MA TA CY WY NO PH EN 5- 32 5 OM [...] Procedure DOS Code Location Performer Comment URINE 38530 SHARLA MAGDALENO 7 [facility] TEST INC INC VISUAL COLOR CMPRSN METHS LAPAROSCO 15035 SHARLA MAGDALENO PY SURG 7 [facility] CHOLECYST INC INC ECTOMY ANES 78019 COMMUNITY FEEBACK INTRAPERI 7 ANESTH TONEAL OF THE UPPER BLUE ABDOMEN W/[place] [address] SHARLA MAGDALENO LIPASE 7 [facility] INC INC BLOOD 46764 SHARLA MAGDALENO COUNT 7 [facility] COMPLETE INC INC AUTO&AUTO DIFRNTL WBC COMPREHEN 45122 SHARLA MAGDALENO SIVE 7 [facility] [place] [address] SHARLA MAGDALENO AMYLASE 7 [facility] INC INC COLLECTIO 14214 SHARLA MAGDALENO N VENOUS 7 [facility] [place] [address] SHARLA MAGDALENO INFUSION 7 [facility] THERAPY/P INC INC ROPHYLAXI S /DX 1ST TO 1 HR THERAPEUT 16713 SHARLA MAGDALENO IC 7 [facility] INJECTION INC INC IV PUSH EACH NEW DRUG URNLS DIP 57104 SHARLA MAGDALENO 7 [facility] STICK/TAB INC INC LET REAGENT AUTO MICROSCOP Y BLOOD 01984 SHARLA MAGDALENO COUNT 7 [facility] COMPLETE INC INC AUTO&AUTO DIFRNTL WBC URINE 27988 SHARLA MAGDALENO 7 [facility] TEST INC INC [place]ISUAL [place] [address] SHARLA MAGDALENO LIPASE [address] [facility] [place] [address] SHARLA MAGDALENO ABDOMEN & 7 [facility] PELVIS INC INC W/[place] [address] SHARLA MAGDALENO AMYLASE 7 [facility] INC INC COMPREHEN 82540 SHARLA MAGDALENO SIVE 7 [facility]OS[facility] METABOLIC INC INC PANEL TECHNETIU A9537 SHARLA MAGDALENO M TC-99M 7 MEM HOS[facility] HOSP DEBROFENI INC INC N DX UP TO 15 MCI HEPATOBIL 30115 [place] IVANINEKE SYST 7 MEDICAL IMAG INC IMAGING [place] [address] SHARLA MAGDALENO ABDOMINAL 7 [facility] REAL INC INC TIME W/[place] [address] SHARLA MAGDALENO THYROXINE 7 [facility] [place] [address] SHARLA MAGDALENO THYROID 7 [facility]OS[facility] STIMULATI INC INC NG HORMONE TSH COLLECTIO 77116 SHARLA MAGDALENO N VENOUS 7 [facility] MEM HOSP BLOOD INC INC VENIPUNCT URE APPL 38144 SHARLA SHARLA MODALITY 7 MEM HOSP MEM HOSP 1/> AREAS INC INC TRACTION MECHANICA L APPL 97801 SHARLA MAGDALENO MODALITY 7 MEM HOS[facility] HOSP 1/> AREAS INC INC ELEC STIMJ UNATTENDE D APPLICATI 91525 SHARLA MAGDALENO ON 7 [facility] MODALITY INC INC 1/> AREAS HOT/COLD PACKS APPL 50781 SHARLA MAGDALENO MODALITY 7 [facility] H[facility]OS[facility] 1/> AREAS INC INC ULTRASOUN D EA 15 MIN THERAPEUT 98989 SHARLA SHARLA IC PX 1/> 7 [facility] H[facility]OS[facility] AREAS INC INC EACH 15 MIN EXERCISES THERAPEUT 31339 SHARLA MAGDALENO IC PX 1/> 7 [facility]OS[facility] AREAS INC INC EACH 15 MIN EXERCISES APPLICATI 96663 SHARLA MAGDALENO ON 7 [facility] H[facility]OS[facility] MODALITY INC INC 1/> AREAS HOT/COLD PACKS APPL 23883 SHARLA MAGDALENO MODALITY 7 [facility] H[facility] 1/> AREAS INC INC TRACTION MECHANICA L APPL 58613 SHARLA MAGDALENO MODALITY 7 [facility] 1/> AREAS INC INC ELEC STIMJ UNATTENDE D PHYSICAL 75925 SHARLA MAGDALENO THERAPY [address] [facility] EVALUATIO INC INC N [place] [address] [place] [address] MICHELLE STACY HEAD/BRAI 7 MEDICAL N W/O IMAGING CONTRAST ASS MATERIAL FINAL G9638 MICHELLE STACY REPORTS 7 MEDICAL W/O DOC IMAGING 1/[place] [address] [facility] [place] ST[place] HEAD/BRAI 7 MEDICAL N W/O IMAGING CONTRAST ASS MATERIAL FINAL G9638 [facility] [place] STACY REPORTS 7 MEDICAL W/O DOC IMAGING 1/MORE ASS DOSE REDUCTION TECH CREATINE 85963 SHARLA MAGDALENO KINASE MB 7 [facility] H[facility] FRACTION INC INC ONLY COMPREHEN 45088 SHARLA MAGDALENO SIVE [address] [facility] [place] [address] MICHELLE STACY CERVICAL 7 MEDICAL SPINE W/O IMAGING CONTRAST ASS MATERIAL BLOOD 56008 SHARLA MAGDALENO COUNT 7 [facility] COMPLETE INC INC AUTO&AUTO DIFRNTL WBC ECG 54504 COL[facility] GRAMAJO ROUTINE 7 PHYSICIAN ECG S, PLLC W/LEAST 12 LDS I&[place] [address] SHARLA MAGDALENO TROPONIN [address] [facility] QUANTITAT INC INC VINCENT ECG 28430 SHARLA MAGDALENO ROUTINE [address] [facility]OS[facility] ECG INC INC W/LEAST 12 LDS TRCG ONLY W/O I&R FINAL RPT G[address]/MRI 7 MEDICAL CHEST/NCK IMAGING /U/S NO ASS THR NOD<1.0 CM CREATINE 32001 SHARLA MAGDALENO KINASE 7 [place] [address] [facility] TRANSVAGI 7 MEDICAL MEDICAL NAL IMAGING IMAGING ASS ASS CRTCHS E0114 [facility] UNDARM 7 TECHNOLOG TECHNOLOG OTH THAN IES INC IES INC WOOD PAIR PAD TIP&HNDGR IP RADEX 77345 MICHELLE STACY FOOT 7 MEDICAL COMPLETE IMAGING MINIMUM 3 ASS VIEWS MRI 03506 [facility] [place] [place] STACY SPINAL 7 MEDICAL CANAL IMAGING LUMBAR ASS W/O CONTRAST MATERIAL COLLECTIO 89825 [facility] FRYMAN N VENOUS 7 PHYSICIAN BLOOD S GROUP VENIPUNCT URE 3D 81734 MICHELLE STACY RENDERING 7 MEDICAL W/INTERP IMAGING & ASS POSTPROCE SS SUPERVISI ON COMPREHEN 31036 SHARLA MAGDALENO SIVE 7 [facility] [place] [address] SHARLA MAGDALENO MAGNESIUM 7 [facility]OS[facility] INC INC CULTURE 89896 SHARLA MAGDALENO BACTERIAL 7 [facility]OS[facility] INC INC QUANTTATI VE COLONY COUNT URINE URNLS DIP 97739 SHARLA MAGDALENO 7 [facility] STICK/TAB INC INC LET REAGENT AUTO MICROSCOP Y FINAL G9551 MICHELLE STACY REPR ABD 7 MEDICAL IMAG STS IMAGING W/O ASS INCIDNT FND LES NTD: FINAL G9638 MICHELLE STACY REPORTS 7 MEDICAL W/O DOC IMAGING 1/[place] [address] MICHELLE STACY ABDOMEN & 7 MEDICAL PELVIS IMAGING W/O ASS CONTRAST MATERIAL THER 51796 SHARLA MAGDALENO PROPH/DX 7 [facility] NJX IV INC INC PUSH SINGLE/1S T SBST/DRUG THERAPEUT 58172 SHARLA MAGDALENO IC 7 [facility] INJECTION INC INC IV PUSH EACH NEW DRUG THER 77534 SHARLA MAGDALENO PROPH/DX 7 [facility] NJX EA INC INC SEQL IV PUSH SBST/DRUG FAC URINE 20844 SHARLA MAGDALENO 7 [facility] TEST INC INC VISUAL COLOR CMPRSN METHS COLONOSCO 03128 SHARLA MAGDALENO PY FLX DX 7 [facility] H[facility]OS[facility] W/COLLJ INC INC SPEC WHEN PFRMD ANES 19532 [facility] LOWER 7 ANESTH INTESTINE OF THE BLUE ENDOSCOPY DISTAL DUODENUM APPLICATI 51580 SHARLA MAGDALENO ON 7 [facility]OS[facility] MODALITY INC INC 1/> AREAS HOT/COLD PACKS THERAPEUT 14427 SHARLA MAGDALENO IC PX 1/> 7 [facility]OS[facility] AREAS INC INC EACH 15 MIN EXERCISES APPL 85394 SHARLA MAGDALENO MODALITY 7 MEM HOS[facility] MEM HOSP 1/> AREAS INC INC ELEC STIMJ UNATTENDE D PHYSICAL 15411 SHARLA MAGDALENO THERAPY 7 [facility]OS[facility] EVALUATIO INC INC N MOD COMPLEX 30 MINS HEPATITIS 84827 SHARLA MAGDALENO C 7 [facility] ANTIBODY INC INC HEPATITIS 32306 SHARLA MAGDALENO B CORE 7 [facility] [place] [address] SHARLA MAGDALENO HEPATITIS 7 [facility] B INC INC SURFACE ANTIGEN BLOOD 19071 SHARLA MAGDALENO COUNT 7 [facility] COMPLETE INC INC AUTO&[place] [address] SHARLA MAGDALNEO FREE 7 [facility] [place] [address] SHARLA MAGDALENO THYROID 7 [facility] STIMULATI INC INC NG HORMONE TSH COMPREHEN 24796 SHARLA MAGDALENO SIVE 7 [facility] METABOLIC INC INC PANEL INF AGT G0432 SHARLA MAGDALENO AB DETECT 7 [facility] EIA TECH INC INC HIV-1&/HI V-2 SCR HEPATITIS 89526 SHARLA MAGDALENO A 7 [facility] ANTIBODY INC INC HAAB COLLECTIO 52732 SHARLA MAGDALENO N VENOUS 7 [facility] BLOOD INC INC VENIPUNCT URE RADEX 63314 [place] STACY SPINE 7 MEDICAL LUMBOSACR IMAGING AL 2/3 ASS VIEWS RADEX 19126 SHARLA MAGDALENO SPINE 7 [facility]OS[facility] LUMBOSACR INC INC AL MINIMUM 4 VIEWS RMVL JAYJAY 86523 [facility] ALLRAN JR CTR VAD 7 PHYSICIAN W/SUBQ S GROUP 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 PANEL INC INC CALCIUM TOTAL COLLECTIO 61136 SHARLA MAGDALENO N VENOUS 7 [facility] [place] [address] [facility]OMEN & 6 MEDICAL PELVIS IMAGING W/CONTRAS ASS T MATERIAL RADIOLOGI 56102 SHARLA MAGDALENO C EXAM 6 [facility] CHEST 2 INC INC VIEWS FRONTAL&L ATERAL COMPREHEN 72253 SHARLA MAGDALENO SIVE [address] [facility] METABOLIC INC INC PANEL CREATINE 22777 SHARLA MAGDALENO KINASE MB [address] [facility] FRACTION INC INC ONLY BLOOD 04593 SHARLA MAGDALENO COUNT 6 [facility] COMPLETE INC INC AUTO&[place] [address] SHARLA MAGDALENO TROPONIN 6 [facility] QUANTITAT INC INC VINCENT ECG 09902 SHARLA BANG JR ROUTINE 6 [place] W/LEAST P 12 LDS I&R ONLY RHYTHM 01500 SHARLA MAGDALENO ECG 1-3 6 [facility] LEADS INC INC TRACING ONLY W/O I&R CREATINE 35268 SHARLA MAGDALENO KINASE 6 [facility] TOTAL INC INC ECG 99495 SHARLA MAGDALENO ROUTINE 6 [facility] ECG INC INC W/LEAST 12 LDS TRCG ONLY W/O I&R THER 24441 SHARLA MAGDALENO PROPH/DX 6 [facility] NJX IV INC INC PUSH SINGLE/1S T SBST/[place] [address] [place] NICO HEAD/BRAI 6 MEDICAL ALEJANDRA N W/O IMAGING CONTRAST ASS MATERIAL CT THORAX 35175 [place] STACY ALL 6 MEDICAL W/CONTRAS IMAGING T ASS MATERIAL RADIOLOGI 78104 [place] REGIS ALL C EXAM 6 MEDICAL CHEST 2 IMAGING VIEWS ASS FRONTAL&L ATERAL PET 10327 [place] МАРИЯ IMAGING [address] SERV ATTENUATI FOUNDATIO ON SKULL N BASE MID-THIGH FLUORODEO A9552 [facility] XYGLUCOSE 5 Y Y F-18 FDG [facility] DX UP TO 45 MCI GLUCOSE 52541 [place] [facility] QUANTITAT 5 [facility]ALTHCAR VINCENT BLOOD E E XCPT [facility] REAGENT STRIP PORT C1788 [place] INDWELLIN 5 [facility]ALTHCAR G E E HOSPITALS HOSPITALS GUIDE C1769 [place] WIRE 5 [facility]ALTHCAR HEALTHCAR E E HOSPITALS HOSPITALS FLUORO 10444 [place] CENTRAL 5 HEALTHCAR HEALTHCAR VENOUS E E ACCESS [facility] DEV PLACEMENT PROTHROMB 82326 [place] IN TIME 5 [facility]ALTHCAR HEALTHCAR E E HOSPITALS HOSPITALS INJECTION J1644 [place] HEPARIN 5 [facility]CAR HEALTHCAR SODIUM E E PER 1000 HOSPITALS HOSPITALS UNITS BLOOD 82012 [place] COUNT 5 [facility]ALTHCAR HEALTHCAR COMPLETE E E AUTOMATED [facility] INJECTION J1200 [place] 5 HEALTHCAR HEALTHCAR DIPHENHYD E E RAMINE [facility] HCL UP TO 50 MG INJECTION [id number] [place] FENTANYL 5 HEALTHCAR HEALTHCAR CITRATE E E 0.1 MG [facility] INFUSION J7030 [place] NORMAL 5 HEALTHCAR HEALTHCAR SALINE E E SOLUTION [facility] [facility] 1000 CC INJECTION [id number] [facility] 5 [facility] HEALTHCAR CEFAZOLIN E E SODIUM [facility] 500 MG INJECTION J1642 [facility] HEPARIN 5 [facility] HEALTHCAR SODIUM E E PER 10 [facility] HOSPITALS UNITS [place] VASC 29950 [facility] ACCESS 5 HEALTHCAR HEALTHCAR SITS VSL E E PATENCY [facility] NDL ENTRY INJECTION J2250 [facility] 5 HEALTHCAR HEALTHCAR MIDAZOLAM E E HCL PER HOSPITALS HOSPITALS 1 MG RMVL JAYJAY 81545 [facility] CTR VAD 5 HEALTHCAR HEALTHCAR W/SUBQ E E 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 [facility] CTR/PRPH INSJ INSJ 04917 [facility] TUNNELED 5 HEALTHCAR HEALTHCAR CTR VAD E E W/SUBQ [facility] HOSPITALS PORT AGE 5 YR/> COMPREHEN 19829 [place] [facility] SIVE 5 [facility]ALTHCAR HEALTHCAR METABOLIC E E PANEL [facility] LOCM Q9967 [facility]ERS[facility] UNIVERSIT [phone] 5 Y Y MG/ML HOSPITAL HOSPITAL IODINE CONCENTRA TION PER ML CT THORAX 39044 [place] AYOOB AND 5 MEDICAL [place] [address] AYSE SALCEDOB AND ABDOMEN & 5 MEDICAL PELVIS SERV [place] [address] MICHELLE STACY ALL ABDOMEN & 5 MEDICAL PELVIS IMAGING W/[place] [address] SHARLA MAGDALENO ABDOMEN & 5 [facility] PELVIS INC INC W/CONTRAS T MATERIAL CT THORAX 99383 SHARLA SHARLA 5 [facility] W/CONTRAS INC INC T MATERIAL LOCM Q9967 SHARLA MAGDALENO [phone] 5 [facility] MG/ML INC INC IODINE CONCENTRA TION PER ML INJECTION J1642 SHARLA MAGDALENO HEPARIN 5 [facility] SODIUM INC INC PER 10 UNITS URNLS DIP 03409 SHARLA MAGDALENO 5 [facility] STICK/TAB INC INC LET REAGENT AUTO MICROSCOP Y CULTURE 38174 SHARLA MAGDALENO BACTERIAL 5 [facility] INC INC QUANTTATI VE COLONY COUNT URINE BLOOD 99577 SHARLA MAGDALENO COUNT 5 [facility] COMPLETE INC INC AUTO&AUTO DIFRNTL WBC CHEMOTX 79306 SHARLA MAGDALENO ADMN IV 5 [facility] NFS TQ UP INC INC 1 HR SBST/DRUG GRANISETR Q0166 SHARLA MAGDALENO ON HCL 1 5 [facility] MG ORL INC INC NOT >48 HR DOSE REGIMEN INJECTION J1642 SHARLA MAGDALENO HEPARIN 5 [facility] SODIUM INC INC PER 10 UNITS COMPREHEN 43861 SHARLA MAGDALENO SIVE 5 [facility] METABOLIC INC INC PANEL INJECTION J9045 SHARLA MAGDALENO 5 [facility] CARBOPLAT INC INC IN 50 MG INJECTION J9267 SHARLA MAGDALENO 5 [facility] PACLITAXE INC INC L 1 MG INJECTION J1642 SHARLA MAGDALENO HEPARIN 5 [facility] SODIUM INC INC PER 10 UNITS CHEMOTX 49546 SHARLA MAGDALENO ADMN IV 5 [facility] NFS TQ EA INC INC SEQL NFS TO 1 HR GRANISETR Q0166 SHARLA MAGDALENO ON HCL 1 5 [facility] MG ORL INC INC NOT >48 HR DOSE REGIMEN CHEMOTX 79140 SHARLA MAGDALENO ADMN IV 5 [facility] NFS TQ UP INC INC 1 HR / SBST/DRUG CHEMOTHER 22865 SHARLA MAGDALENO APY ADMN 5 [facility] IV INC INC INFUSION TQ EA HR BLOOD 92582 SHARLA MAGDALENO COUNT 5 [facility] COMPLETE INC INC AUTO&AUTO DIFRNTL WBC COLLECTIO 22493 SHARLA MAGDALENO N VENOUS 5 [facility] BLOOD INC INC VENIPUNCT URE COMPREHEN 43614 SHARLA MAGDALENO SIVE 5 [facility] METABOLIC INC INC PANEL INSJ 15033 SHARLA MAGDALENO TUNNELED [address] [facility] CTR VAD INC INC W/SUBQ PORT AGE 5 YR/> RADIOLOGI 62526 [place] 5 MEDICAL ALEJANDRA EXAMINATI IMAGING ON CHEST ASS SINGLE VIEW FRONTAL INJECTION J2405 SHARLA MAGDALENO 5 [facility] ONDANSETR INC INC ON HCL PER 1 MG INJECTION J1642 SHARLA MAGDALENO HEPARIN [address] [facility] SODIUM INC INC PER 10 UNITS INJECTION J0131 SHARLA MAGDALENO [address] [facility] ACETAMINO INC INC PHEN 10 MG FLUORO 52564 SHARLA MAGDALENO CENTRAL [address] [facility] VENOUS INC INC ACCESS DEV PLACEMENT ANESTHESI 06176 [facility] SH[facility] A ACCESS 5 ANESTH CENTRAL OF THE VENOUS BLUE CIRCULATI ON PORT C1788 SHARLA MAGDALENO INDWELLIN 5 [facility] G INC INC BASIC 20575 SHARLA MAGDAELNO METABOLIC 5 [facility] PANEL INC INC CALCIUM TOTAL BLOOD 00391 SHARLA SHARLA COUNT 5 [facility] COMPLETE INC INC AUTO&AUTO DIFRNTL WBC GONADOTRO 75839 SHARLA MAGDALENO PIN 5 [facility] CHORIONIC INC INC QUALITATI VE ECG 97236 SHARLA BANG JR ROUTINE [address] [facility] W/LEAST P 12 LDS I&R ONLY ECG 47926 SHARLA MAGDALENO ROUTINE 5 [facility] ECG INC INC W/LEAST 12 LDS TRCG ONLY W/O I&R COLLECTIO 59245 SHARLA MAGDALENO N VENOUS 5 [facility] BLOOD INC INC VENIPUNCT URE COMPREHEN 77759 SHARLA MAGDALENO SIVE 5 [facility]P METABOLIC INC INC PANEL BLOOD 92376 SHARLA MAGDALENO COUNT 5 [facility] COMPLETE INC INC AUTO&AUTO DIFRNTL WBC HOSPITAL G0463 SHARLA MAGDALENO OUTPATIEN 5 [facility] T CLIN INC INC VISIT ASSESS & MGMT PT ECG 47449 SHARLA BANG JR ROUTINE 5 [facility] W/LEAST P 12 LDS I&R ONLY THERAPEUT 97112 SHARLA MAGDALENO IC 5 [facility] INJECTION INC INC IV PUSH EACH NEW DRUG RADIOLOGI 75809 [facility] 5 MEDICAL ALEJANDRA EXAMINATI IMAGING ON CHEST ASS SINGLE VIEW FRONTAL FLUORODEO A9552 [facility] XYGLUCOSE 5 Y Y F-18 FDG [facility] DX UP TO 45 MCI PET 79775 [facility] 5 Y Y [address] [facility] ATTENUATI ON SKULL BASE MID-THIGH INJECTION J1642 SHARLA MAGDALENO HEPARIN 5 [facility] SODIUM INC INC PER 10 UNITS BLOOD 02930 SHARLA MAGDALENO COUNT 5 [facility] COMPLETE INC INC AUTO&AUTO DIFRNTL WBC COMPREHEN 02183 SHARLA MAGDALENO SIVE 5 [facility] METABOLIC INC INC PANEL INJECTION J9045 [facility] 5 Y Y CARBOPLAT [facility] IN 50 MG DEXAMETHA J8540 [facility] SONE ORAL 5 Y Y 0.25 MG HOSPITAL HOSPITAL INJECTION J9267 [facility] 5 Y Y PACLITAXE [facility] L 1 MG INFUSION J7040 [facility] NORMAL 5 Y Y SALINE [facility] SOLUTION STERILE INJ J1720 [facility] HYDROCORT 5 Y Y ISONE [facility] SODIUM SUCCINATE TO 100 MG THERAPEUT 05118 [facility] IC 5 Y Y INJECTION [facility] IV PUSH EACH NEW DRUG CHEMOTHER 93143 [facility] APY ADMN 5 Y Y IV HOSPITAL HOSPITAL INFUSION TQ EA HR CHEMOTX 73167 [facility] ADMN IV 5 Y Y NFS TQ UP [facility] 1 HR SBST/DRUG ONDANSETR Q0162 [facility] ON 1 MG 5 Y Y ORL NOT [facility] EXCEED 48 HR DOSE REG INJECTION J2060 [facility] UNIVERS 5 Y Y LORAZEPAM [facility] 2 MG INJECTION J1200 [facility] 5 Y Y DIPHENHYD [facility] RAMINE HCL UP TO 50 MG INFUSION J7050 [facility] NORMAL 5 Y Y SALINE [facility] SOLUTION 250 CC CHEMOTX 55146 [facility] ADMN IV 5 Y Y NFS TQ [facility] SEQL NFS TO 1 HR BLOOD 59821 SHARLA MAGDALENO COUNT 5 [facility]OS[facility] COMPLETE INC INC AUTO&AUTO DIFRNTL WBC INJECTION J1642 SHARLA MAGDALENO HEPARIN 5 [facility]OS[facility] SODIUM INC INC PER 10 UNITS COMPREHEN 43027 SHARLA MAGDALENO SIVE 5 [facility]OS[facility] METABOLIC INC INC PANEL IRRIGAJ 52664 SHARLA MAGDALENO IMPLNTD 5 MEM [facility] MEM [facility]OSP VENOUS INC INC ACCESS DRUG DELIVERY SYST BLOOD 92300 SHARLA MAGDALENO COUNT 5 [facility]OS[facility] COMPLETE INC INC AUTO&AUTO DIFRNTL WBC INJECTION J1642 SHARLA MAGDALENO HEPARIN 5 [facility]OSP SODIUM INC INC PER 10 UNITS COMPREHEN 02243 SHARLA MAGDALENO SIVE 5 [facility]OS[facility] METABOLIC INC INC PANEL COLLECTIO 69907 SHARLA MAGDALENO N VENOUS [address] 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 AGE 5 YR/> DEXAMETHA J8540 [facility] SONE ORAL 5 Y Y 0.25 MG [facility] COMPREHEN 97112 [facility] SIVE 5 Y Y METABOLIC [facility] PANEL INJ J1720 [facility] HYDROCORT 5 Y Y ISONE [facility] SODIUM SUCCINATE TO 100 MG INJECTION J9267 [facility] 5 Y Y PACLITAXE [facility] L 1 MG INFUSION J7040 [facility] NORMAL 5 Y Y SALINE [facility] SOLUTION STERILE INFUSION J7050 [facility] NORMAL 5 Y Y SALINE [facility] SOLUTION 250 CC INJECTION J2060 [facility] 5 Y Y LORAZEPAM [facility] 2 MG CHEMOTX 67460 [facility] ADMN IV 5 Y Y NFS TQ [facility] SEQL NFS TO 1 HR BLOOD 12459 [facility] COUNT 5 Y Y COMPLETE [facility] AUTO&AUTO DIFRNTL WBC INJECTION J1200 [facility] 5 Y Y [facility] UP TO 50 MG THERAPEUT 28804 [facility] IC 5 Y Y INJECTION [facility] IV PUSH EACH NEW DRUG CHEMOTHER 33235 [facility] APY ADMN 5 Y Y IV [facility] INFUSION TQ EA HR ONDANSETR Q0162 [facility] ON 1 MG 5 Y Y ORL NOT [facility] EXCEED 48 HR DOSE REG CHEMOTX 65578 [facility] ADMN IV 5 Y Y NFS TQ UP [facility] 1 HR SBST/[place] [address] [facility] ABDOMEN & 5 Y Y PELVIS [facility] W/CONTRAS T MATERIAL CT THORAX 69804 [facility] 5 Y Y W/[facility] T MAT[place] [facility] SOFT 34697 [facility] TISSUE 5 Y Y NECK [facility] LOCM Q9967 [facility] [phone] 5 Y Y MG/ML [facility] IODINE CONCENTRA TION PER ML ANESTHESI 64693 [place] BULGARIAN A VAGINAL 5 MEDICAL DESHAUN SERVICES PROCEDURE W/BIOPSY NOS INSERTION 11173 [facility] UTERINE 5 Y Y TANDEM&/V [facility] AGINAL OVOIDS INJECTION J2405 [facility] 5 [facility] PER 1 MG CONTINUIN 55692 [facility] 5 Y Y PHYSICS [facility] [place] [address] [facility] DEVICES 5 Y Y DESIGN & [facility] CONSTRUCT ION SIMPLE THER RAD 87234 [facility] SIMULAJA 5 Y Y [facility] FIELD SETTING COMPLEX INJECTION J1200 [facility] 5 Y Y [facility] HCL UP TO 50 MG INJECTION J2175 [facility] 5 Y Y [facility] E HCL PER 100 MG BRACHYTX C1717 [facility] NONSTRAN 5 Y Y [facility] DOSE IRIDIUM-1 92 PER SRC INJECTION J1100 [facility] 5 Y Y DEXAMETHO [facility] SONE SODIUM PHOSPHATE 1 MG REMOTE 02763 [facility] 5 Y Y RADIONUCL [facility] MATTIE BRACHYTX 2-12 CHANNEL INJECTION J2250 [facility] 5 Y Y MIDAZOLAM [facility] HCL PER 1 MG BRACHYTX 77002 [facility] ISODOSE 5 Y Y PLN [facility] INTERMED W/DOSIMET RY CALVIN INFUSION J7030 [facility] NORMAL 5 Y Y SALINE [facility] SOLUTION 1000 CC INJECTION J2704 [facility] PROPOFOL 5 Y Y 10 MG HOSPITAL HOSPITAL INJECTION J3010 [facility] FENTANYL 5 Y Y CITRATE [facility] 0.1 MG INJECTION J2704 [facility] PROPOFOL 5 Y Y 10 MG HOSPITAL HOSPITAL BRACHYTX 00831 [facility] 5 MEDICAL CHRISTIANO PLN SERV INTERMED FOUNDATIO W/DOSIMET N RY CALVIN REMOTE 14382 [facility] 5 MEDICAL CHRISTIANO RADIONUCL SERV MATTIE FOUNDATIO BRACHYTX N 2-12 CHANNEL INJECTION J1170 [facility] 5 Y Y HYDROMORP [facility] RADHA UP TO 4 MG INJECTION J2175 [facility] 5 Y [facility] PER 100 MG BRACHYTX C1717 [facility] NONSTRAND 5 Y Y ED [facility] DOSE IRIDIUM-1 92 PER SRC INJECTION J1200 [place] [address] Y [facility] HCL UP TO 50 [place]ER [place] [address] AYSE BONNERKALPANA SIMULAJ-A 5 MEDICAL [place]RISTIANO IDED SERV [place] [address] AYSE [place] DEVICES 5 MEDICAL MEDICAL DESIGN & SERV SERV CONSTRUCT FOUNDATIO FOUNDATIO ION N N SIMPLE CONTINUIN 74676 [facility] 5 Y Y [facility] [place] ANESTHESI 34209 AYSE CORTEZ A VAGINAL 5 MEDICAL DESHAUN SERVICES PROCEDURE W/BIOPSY NOS INSERTION 73845 [facility] UTERINE 5 Y Y TANDEM&/V [facility] AGINAL OVOIDS INSERTION 86978 AYSE FEDDOCK UTERINE 5 MEDICAL CHRISTIANO TANDEM&/V SERV AGINAL FOUNDATIO OVOIDS N ANESTHESI 26611 AYSE JUSTIN A VAGINAL 5 MEDICAL CRY SERVICES PROCEDURE W/BIOPSY NOS THER RAD 03087 AYSE BONNERNEREIDA SIMULAJ-A 5 MEDICAL CHRISTIANO IDED SERV [place] [address] AYSE WANG DEVICES 5 MEDICAL CHRISTIANO DESIGN & SERV CONSTRUCT FOUNDATIO ION N SIMPLE REMOTE 35128 AYSE BONNERNEREIDA AFTLD 5 MEDICAL CHRISTIANO RADIONUCL SERV MATTIE FOUNDATIO BRACHYTX N 2-12 CHANNEL BRACHYTX 76237 AYSE KATHLEEN ISODOSE 5 MEDICAL CHRISTIANO PLN SERV INTERMED FOUNDATIO W/DOSIMET N RY CALVIN INJECTION J2250 [facility] 5 Y Y [facility] HCL PER 1 MG INJECTION J3010 [facility] 5 Y Y [facility] 0.1 MG RADIATION 18140 [place] [address] Y Y [facility] DELIVERY 1 MEV => COMPLEX RADIATION 12174 [place] [address] Y Y [facility] DELIVERY 1 MEV => COMPLEX INJECTION J3475 [facility] SULPHATE PER 500 MG RADIATION 04762 [facility] UNIVERSIT 5 Y Y [facility] DEL[facility]ERY 1 MEV => COMPLEX INFUSION J7030 [facility] UNIVERS NORMAL 5 Y Y SALINE HOSPITAL [facility] SOLUTION 1000 CC BLOOD 52188 [facility] UNIVERS COUNT 5 Y Y COMPLETE [facility] AUTO&[place] [address] [facility] INFUSION 5 Y Y THERAPY HOSPITAL [facility] PROPHYLAX IS/DX EA HOUR CHEMOTX 58835 [facility] ADMN IV 5 Y Y NFS TQ UP [facility] 1 HR / SBST/DRUG ONDANSETR Q0162 [facility] ON 1 MG 5 Y Y ORL NOT [facility] EXCEED 48 HR DOSE REG INJECTION J9060 [facility] 5 Y Y CISPLATIN [facility] POWDER OR SOLUTION 10 MG DEXAMETHA J8540 [facility] SONE ORAL 5 Y Y 0.25 MG [facility] APREPITAN J8501 [facility] T ORAL 5 5 [place] [address] [facility] INFUSION 5 Y Y THER [facility] PROPH ADDL SEQUENTIA L TO 1 HR COMPREHEN 52035 [facility] SIVE 5 Y Y METABOLIC [facility] PANEL INJECTION J3480 [facility] 5 Y Y POTASSIUM [facility] CHLORIDE PER 2 MEQ INFUSION J7040 [facility] NORMAL 5 Y Y SALINE [facility] SOLUTION STERILE COLLECTIO 16542 [facility] N VENOUS 5 Y Y BLOOD HOSPITAL [facility] VENIPUNCT URE RADIATION 91386 [facility] UNIVERS 5 Y Y [facility] DELIVERY 1 MEV => COMPLEX RADIATION 23342 [facility] UNIVERS 5 Y Y [facility] DELIVERY 1 MEV => COMPLEX RADIATION 39591 ME ANGI 5 MEDICAL CHRISTIANO TREATMENT SERV FOUNDATIO MANAGEMEN N T 5 TREATMENT S BLOOD 91967 [facility] UN[facility]ERS COUNT 5 Y Y COMPLETE [facility] AUTOMATED ECG 84798 [facility] ROUTINE 5 Y Y ECG [facility] W/LEAST 12 LDS TRCG ONLY W/O I&R CONTINUIN 43916 [facility] 5 Y Y PHYSICS HOSPITAL [facility] [place] BASIC 19308 [facility] METABOLIC 5 Y Y PANEL [facility] CALCIUM TOTAL CULTURE 55890 [facility] BACTERIAL 5 Y Y [facility] QUANTTATI VE COLONY COUNT URINE URNLS DIP 55443 [facility] 5 Y Y STICK/TAB HOSPITAL HOSPITAL LET REAGENT AUTO MICROSCOP Y ECG 57663 [place] [facility] L[facility]SA[facility] ROUTINE 5 MEDICAL ECG SERV W/LEAST FOUNDATIO 12 LDS N I&R ONLY COLLECTIO 91282 [facility] VENOUS 5 Y Y BLOOD [facility] VENIPUNCT URE THERAPEUT 10494 [facility] 5 Y Y RADIOLOGY [facility] PORT IMAGES(S) RADIATION 27319 [facility] 5 Y Y TREATMENT [facility] DELIVERY 1 MEV => COMPLEX RADIATION 79556 [facility] 5 Y Y TREATMENT [facility] DELIVERY 1 MEV => COMPLEX RADIATION 99700 [facility] 5 Y Y TREATMENT [facility] DELIVERY 1 MEV => COMPLEX COMPREHEN 73487 [facility] Y Y METABOLIC [facility] [place] [address] [facility] 5 Y Y PROPHYLAX [facility] IS/DX CONCURREN T NFS INJECTION J3475 [facility] 5 Y Y MAGNESIUM [facility] SULPHATE PER 500 MG INJECTION J1453 [facility] 5 Y Y FOSAPREPI [facility] TANT 1 MG INJECTION J3480 [facility] 5 Y Y POTASSIUM [facility] CHLORIDE PER 2 MEQ INFUSION J7030 [facility] NORMAL 5 Y Y SALINE [facility] SOLUTION 1000 CC INFUSION J7050 [facility] NORMAL 5 Y Y SALINE [facility] SOLUTION 250 [place] [address] [facility] INFUSION 5 Y Y THERAPY [facility] PROPHYLAX IS/DX EA HOUR ONDANSETR Q0162 [facility] ON 1 MG 5 Y Y ORL NOT HOSPITAL HOSPITAL EXCEED 48 HR DOSE REG CHEMOTX 73109 [facility] ADMN IV 5 Y Y NFS TQ UP [facility] 1 HR SBST/DRUG BLOOD 51166 [facility] COUNT 5 Y Y COMPLETE [facility] AUTO&AUTO DIFRNTL WBC COLLECTIO 25157 [facility] N VENOUS 5 Y Y BLOOD [facility] VENIPUNCT URE INFUSION J7040 [facility] NORMAL 5 Y Y SALINE [facility] [place] [address] [facility] INFUSION 5 Y Y THER [facility] PROPH ADDL SEQUENTIA L TO 1 HR DEXAMETHA J8540 [facility] SONE ORAL 5 Y Y 0.25 MG HOSPITAL HOSPITAL INJECTION J9060 [facility] 5 Y Y CISPLATIN [facility] POWDER OR SOLUTION 10 MG AMB A0427 [facility] SERVICE 5 [place]AY[place] ALS URBAN URBAN EMERGENCY COGOVT COGOVT TRANSPORT LEVEL 1 GROUND A0425 [facility] MILEAGE 5 [place] PER URBAN URBAN STATUTE COGOVT COGOVT MILE RADIATION 40082 [facility] 5 Y Y TREATMENT [facility] DELIVERY 1 MEV => COMPLEX RADIATION 44576 [facility] 5 Y Y TREATMENT [facility] DELIVERY 1 MEV => COMPLEX RADIATION 41045 [place] [address] MEDICAL CHRISTIANO TREATMENT SERV FOUNDATIO MANAGEMEN N T 5 TREATMENT S GLUCOSE 46159 [facility] QUANTITAT 5 Y Y VINCENT BLOOD [facility] XCPT REAGENT STRIP THERAPEUT 20116 [facility] [place] 5 Y Y RADIOLOGY [facility] PORT IMAGES(S) CONTINUIN 28793 [facility] G MEDICAL 5 Y Y PHYSICS [facility] CONSLTJ [place] W[place] RADIATION 96288 [facility] 5 Y Y TREATMENT [facility] DELIVERY 1 MEV => COMPLEX RADIATION 88054 [facility] 5 Y Y TREATMENT [facility] DELIVERY 1 MEV => COMPLEX COMPREHEN 81858 [facility] 5 Y Y METABOLIC [facility] PANEL INJECTION J3475 [facility] 5 Y Y [facility] SUL[facility] PER 500 MG INFUSION J7030 [facility] NORMAL 5 Y Y SALINE [facility] SOLUTION 1000 CC INJECTION J3480 [facility] 5 Y Y [facility] CHLORIDE PER 2 MEQ APREPITAN J8501 [facility] T ORAL 5 5 [place] [address] [facility] INFUSION 5 Y Y THERAPY [facility] PROPHYLAX IS/DX EA HOUR CHEMOTX 04499 [facility] ADMN IV 5 Y Y NFS TQ UP [facility] 1 HR SBST/DRUG ONDANSETR Q0162 [facility] ON 1 MG 5 Y Y ORL NOT HOSPITAL HOSPITAL EXCEED 48 HR DOSE REG BLOOD 49942 [facility] COUNT 5 Y Y COMPLETE [facility] AUTO&AUTO DIFRNTL WBC INJECTION J9060 [facility] 5 Y Y CISPLATIN [facility] POWDER OR SOLUTION 10 MG DEXAMETHA J8540 [facility] SONE ORAL 5 Y Y 0.25 [place] [facility] [address] [facility] INFUSION 5 Y Y THER [facility] PROPH ADDL SEQUENTIA L TO 1 HR INFUSION J7040 [facility] NORMAL 5 Y Y SALINE [facility] SOLUTION STERILE COLLECTIO 14029 [facility] N VENOUS 5 Y Y BLOOD [facility] VENIPUNCT URE RADJ DLVR 17139 [facility] 3/> 4 Y Y [facility] CUSTOM BLKING 08-16MEV RADJ DLVR 56700 [facility] 3/> 4 Y Y [facility] C[facility] 08-16MEV RADJ DLVR 15666 [facility] 3/> 4 Y Y [facility] 08-16MEV THERAPEUT 24116 [facility] IC 4 Y Y RADIOLOGY [facility] PORT IMAGES(S) CONTINUIN 40447 [facility] 4 Y Y PHYSICS [facility] CONSLTJ [place] RADIATION 96766 [facility] MED[facility]RISTIAN[facility]REATMENT SERV FOUNDATIO MANAGEMEN N T 5 TREATMENT S RADJ DLVR 98201 [facility] 3/> 4 Y Y [facility] [place] 08-16[place] [address] AYSE DELAROSA HEAD/BRAI 4 MEDICAL FLA N W/O & SERV W/CONTRAS FOUNDATIO T N MATERIAL LOCM Q9967 [facility] [phone] Y Y MG/ML [facility] IODINE CONCENTRA TION PER ML RADJ DLVR 74755 [facility] 3/> 4 Y Y [facility] CUSTOM BLKING 08-16MEV RADJ DLVR 39070 [facility] 3/> 4 Y Y [facility] 08-16MEV RADJ DLVR 09786 [facility] 3/> 4 Y Y [facility] C[facility] 08-16MEV ONDANSETR Q0162 [facility] ON 1 MG 4 Y Y ORL NOT HOSPITAL HOSPITAL EXCEED 48 HR DOSE REG CHEMOTX 22322 [facility] ADMN IV 4 Y Y NFS TQ UP [facility] 1 HR SBST/[place] [address] [facility], [place] 4 Y Y THERAPY [facility] PROPHYLAX IS/DX EA HOUR BLOOD 89631 [facility] COUNT 4 Y Y COMPLETE [facility] AUTO&AUTO DIFRNTL WBC COMPREHEN 59188 [facility] SIVE 4 Y Y METABOLIC [facility] PANEL INFUSION J7040 [facility] NORMAL 4 Y Y SALINE [facility] SOLUTION STERILE INJECTION J3475 [facility] 4 Y Y MAGNESIUM [facility] SULPHATE PER 500 MG APREPITAN J8501 [facility] T ORAL 5 4 Y Y MG HOSPITAL HOSPITAL INJECTION J3480 [facility] 4 Y Y POTASSIUM [facility]PITAL CHLORIDE PER 2 MEQ INFUSION J7030 [facility] NORMAL 4 Y Y SALINE [facility] [place] [address] [place] [address] [facility] [place] 4 Y Y THER [facility] PROPH ADDL SEQUENTIA L TO 1 HR INJECTION J9060 [facility] 4 Y Y CISPLATIN [facility] POWDER OR SOLUTION 10 MG DEXAMETHA J8540 [facility] SONE ORAL 4 Y Y 0.25 MG [facility] COLLECTIO 59607 [facility] N VENOUS 4 Y Y BLOOD [facility] VENIPUNCT URE RADIATION 12535 [facility] 4 MEDICAL JOSÉ TREATMENT SERV FOUNDATIO MANAGEMEN N T 5 TREATMENT S RADJ DLVR 50835 [facility] 3/> 4 Y Y [facility] CUSTOM BLKING 08-16MEV CONTINUIN 75472 [facility] 4 Y Y PHYSICS [facility] CONSLT [place] WK THERAPEUT 12062 [facility] [place] 4 Y Y RADIOLOGY [facility] PORT IMAGES(S) RADJ DLVR 03894 [facility] 3/> 4 Y Y [facility] CUSTOM BLKING 08-16MEV RADJ DLVR 64129 [facility] 3/> 4 Y Y [facility] CUSTOM BLKING 08-16MEV RADJ DLVR 28710 [facility] 3/> 4 Y Y [facility] CUSTOM BLKING 08-16MEV [place] [address] [facility] INFUSION 4 Y Y THERAPY [facility] PROPHYLAX IS/DX EA HOUR CHEMOTX 84751 [facility] ADMN IV 4 Y Y NFS TQ UP [facility] 1 HR SBST/DRUG ONDANSETR Q0162 [facility] ON 1 MG 4 Y Y ORL NOT HOSPITAL HOSPITAL EXCEED 48 HR DOSE REG BLOOD 92405 [facility] COUNT 4 Y Y COMPLETE [facility] AUTO&AUTO DIFRNTL WBC COMPREHEN 50977 [facility] SIVE 4 Y Y [facility]ABOLIC [facility] PANEL INFUSION J7040 [facility] NORMAL 4 Y Y SALINE [facility] SOLUTION STERILE INJECTION J3475 [facility] 4 Y Y MAGNESIUM [facility] SULPHATE PER 500 MG INFUSION J7030 [facility] NORMAL 4 Y Y SALINE [facility] SOLUTION 1000 CC APREPITAN J8501 [facility] T ORAL 5 4 Y Y MG HOSPITAL HOSPITAL INJECTION J3480 [facility] 4 Y [facility] CHLORIDE PER 2 MEQ COLLECTIO 70648 [facility] N VENOUS 4 Y Y BLOOD [facility] VENIPUNCT URE DEXAMETHA J8540 [facility] SONE ORAL 4 Y Y 0.25 MG HOSPITAL HOSPITAL INJECTION J9060 [facility] 4 Y Y CISPLATIN [facility]PITAL POWDER [place] 10 [place] [address] [facility] INFUSION 4 Y Y THER [facility] PROPH ADDL SEQUENTIA L TO 1 [place] RAD 24180 [facility] 4 Y Y [facility] FIELD SETTING SIMPLE RADIATION 88340 [facility] CHRISTIANO TREATMENT SERV FOUNDATIO MANAGEMEN N T 5 TREATMENT S RADJ DLVR 01219 [facility] 3/> 4 Y Y AREAS [facility] CUSTOM BLKING 08-16MEV [place] [address] [facility] DEVICES 4 Y Y DESIGN & HOSPITAL HOSPITAL CONSTRUCT ION COMPLEX 3-D 27481 [facility] RADIOTHER 4 Y Y APY [facility] DOSE-VOLU ME HISTOGRAM S BASIC 06577 [facility] RADIATION 4 Y Y [facility] [place] [address] [facility] GUIDANCE 4 Y Y RADIATION [facility] THERAPY FLDS PLACEMENT THERAPEUT 13450 AYSE ALLAN 4 MEDICAL CHRISTIANO RADIOLOGY SERV TX FOUNDATIO PL[place] [address]55 [facility] 4 Y Y [facility] FIELD SETTING COMPLEX FLUORODEO A9552 [facility] XYGLUCOSE 4 Y Y F-18 FDG [facility] DX UP TO 45 MCI PET 59455 [facility] IMAGING [address] [facility] ATTENUATI ON SKULL BASE MID-THIGH LOCM Q9967 [facility] [phone] 4 Y Y MG/ML HOSPITAL HOSPITAL [place] [address] [facility] ABDOMEN & 4 Y Y PELVIS [facility] W/CONTRAS T MATERIAL CT THORAX 63731 [facility] 4 Y Y [facility] ANNISTON T MATERIAL ANES 69135 JUVENAL MICHAELS HYSTEROSC 4 LTH MAR OPY&/HYST ANESTHESI EROSALPIN A PSC GOGRAPHY W/[place] L[place] [address] [facility] SURG 4 Y OF PATHOLOGY [place] [facility] GROSS&JAMES ROSCOPIC EXAM PATH 12325 [facility] CONSLTJ 4 Y OF SURG 1ST [place] BLK HOSPI FROZEN SCTJ 1 SPEC IMHISTOCH 03519 [facility] EM/CYTCHM 4 Y OF [place] ANTIBODY HOSPI STAIN PROCEDURE HYSTEROSC 55436 [facility] OPY BX 4 MEDICAL MAR ENDOMETRI SERV UM&/POLYP FOUNDATIO C W/WO N D&C CYTP 17227 [facility] C[facility]/ 4 Y OF MILAGROS VAGINAL [place] REQ HOSPI INTERP PHYSICIAN CYTP C/V 51113 [facility] AUTO THIN 4 Y Y LYR [facility] PREPJ SCR MNL RESCR PHYS BLOOD 52832 [facility] COUNT 4 Y Y HEMOGLOBI [facility] N URINE 34415 AYSE STOKES 4 MEDICAL MAR TEST SERV VISUAL FOUNDATIO COLOR N CMPRSN METHS BLOOD 58265 [facility] COUNT 4 Y [facility] 87557 [facility] N VENOUS 4 Y Y [facility] VENIPUNCT URE AMBULANCE A0429 [facility] SERVICE 4 [facility] EMERGENCY EMS EMS TRANSPORT GROUND A0425 [facility] [place] [address] [facility] [place] CHANG TRANSVAG[place] [address] [place] [address] [facility] [place] MÁRQUEZ JAM ABDOMEN & 4 RADIOLOGY PELVIS W/CONTRAS T MATERIAL BLOOD 46554 [facility] SWINEY OCCULT 4 PAT PAT PEROXIDAS E ACTV QUAL FECES 1-3 [facility] 56287 [facility] DISCHARGE 3 Y OF YASH DAY [place] MANAGEMEN PEDIA T 30 MIN/< SBSQ HOSP 40826 [facility] CARE 3 Y OF YASH F/E/M NML [place] NB [place] D PEDIA HX&XM NML 04166 [facility] NB INFT 3 Y OF YASH INITIATIO [place] N DX&TX PEDIA Encounters Encounter Start End Date Code Location Performer Type Date HOSPITAL [facility] - 7 7 [facility] OUTPATIEN [facility] OFFICE 52015 [facility] PHYS[facility]IAN T VISIT S GROUP 15 MINUTES HOSP[facility] - 7 7 [facility] OUTPATIEN [facility] EMERGENCY 67401 [facility] DEPT 7 7 PHYSICIAN VISIT S, PLLC HIGH SEVERITY& THREAT FUNC EMERGENCY 20331 SH[facility]LA 7 7 MEM [facility] DEPARTMEN [facility] T VISIT HIGH/URGE NT SEVERITY HOSPITAL SHARLA - [address] [facility] OUTPATIEN [facility] SHARLA - [address] [facility]PATIEN [facility] SHARLA - [address] [facility]PATIEN [facility] SHARLA - [address] [facility] OUTPATIEN [facility] SHARLA - 7 7 [facility] OUTPATIEN [facility] OFFICE 78600 [facility] 7 7 PHYSICIAN T VISIT S GROUP 25 MINUTES EMERGENCY 09260 [facility] VILLASENOR 7 7 PHYSICIAN DEPARTMEN S, PLLC T VISIT HIGH/URGE NT SEVERITY EMERGENCY 81281 [facility] DEPT 7 7 PHYSICIAN VISIT S, PLLC HIGH SEVERITY& THREAT FUNC [facility]OSP[facility] SHARLA - 7 7 [facility] OUTPATIEN INC T EMERGENCY 64947 [facility] GRAMAJO DEPT 7 7 PHYSICIAN VISIT S, PLLC HIGH SEVERITY& THREAT FUNCJ EMERGENCY 97595 SH[facility]LA 7 7 MEM [facility]OS[facility] DEPARTMEN INC T VISIT MODERATE SEVERITY EMERGENCY 09736 [facility] BABCOCK 7 7 PHYSICIAN DEPARTMEN S, PLLC T VISIT HIGH/URGE NT SEVERITY HOSPITAL SH[facility] - 7 7 [facility] OUTPATIEN INC T OFFICE 55480 [facility] OUT[facility] 7 7 PHYSICIAN T VISIT S GROUP 25 MINUTES OFFICE 86892 [facility] OUTPATIEN 7 7 PHYSICIAN T VISIT S GROUP 25 MINUTES EMERGENCY 23733 SH[facility]LA 7 7 MEM [facility]OSP DEPARTMEN INC T VISIT LOW/MODER SEVERITY EMERGENCY 47361 [facility] BABCOCK 7 7 [facility] HIGH/URGE NT SEVERITY HOSPITAL SHARLA - 7 7 [facility] OUTPATIEN INC T EMERGENCY [address] [facility] [address] [facility] DEPARTMEN INC T VISIT MODERATE SEVERITY EMERGENCY 07947 [facility] SARGENT 7 7 PHYSICIAN U DEPARTMEN S, [facility] VIS[facility] HIGH/URGE NT SEVERITY [facility]OSPITAL SH[facility] - 7 7 [facility] OUTPATIEN INC T HOSPITAL SHARLA - 7 7 [facility] OUTPATIEN INC T OFFICE 57439 [facility] OUT[facility] 7 7 PHYSICIAN T VISIT S GROUP 25 MINUTES OFFICE 80751 [facility] OUT[facility]IEN 7 7 PHYSICIAN T VISIT S GROUP 15 MINUTES HOSPITAL SHARLA - 7 7 [facility] OUTPATIEN INC T HOSPITAL SHARLA - 7 7 [facility] OUTPATIEN INC T OFFICE 82701 [facility] WHITE[facility]IEN 7 7 PHYSICIAN T VISIT S GROUP 25 MINUTES HOSPITAL SHARLA - 7 7 [facility] OUTPATIEN INC T OFFICE 52706 [facility] OUTPAT[facility]EN 7 7 PHYSICIAN T NEW 30 S GROUP MINUTES EMERGENCY 66372 [facility] BABCOCK 7 7 PHYSICIAN DEPARTMEN S, [facility] T VISIT MODERATE SEVERITY HOSPITAL SHARLA - 7 7 [facility] OUTPATIEN INC T OFFICE 39983 [facility] OUTPATIEN 7 7 PHYSICIAN T VISIT S GROUP 10 MINUTES HOSPITAL SHARLA - 7 7 [facility] OUTPATIEN [facility] T OFFICE 58273 [facility] 6 6 [facility] 15 P MINUTES HOSPITAL SHARLA - [address] [facility] OUTPATIEN [facility] T OFFICE 90741 SHARLA MICHELLE OUTPATIEN 6 6 [facility] 10 P MINUTES EMERGENCY 69580 COLIN HAMMONDS 6 6 PHYSICIAN DEBBY BRAUNMEN S, [facility] T VISIT HIGH/URGE NT SEVERITY EMERGENCY 04709 [facility] BABCOCK DEPT 6 6 PHYSICIAN JAMES VISIT S, [facility] HIGH SEVERITY& THREAT [facility] SHARLA - [address] [facility] OUTPATIEN INC T EMERGENCY 40972 SH[facility]LA 6 6 MEM HOSP DEPARTMEN INC T VISIT MODERATE SEVERITY EMERGENCY 56251 [facility] 6 6 PHYSICIAN DEPARTMEN S, [facility] T VISIT HIGH/URGE NT SEVERITY EMERGENCY 96981 [facility] [place] DEPT 6 6 PHYSICIAN JAMES VISIT S, [facility] HIGH SEVERITY& THREAT [facility] UNIVERSIT - [address] [facility] - 5 5 [facility] UNIVERSIT - 5 5 Y [facility] T EMERGENCY 25220 BUBBA MAC DEPT 5 5 FURNITURE FINISHER APPRENTICE FURNITURE FINISHER APPRENTICE VISIT HIGH SEVERITY& THREAT FUN OFFICE 62054 MICHELLE MICHELLE OUTPATIEN 5 5 [facility] T VISIT 5 MINUTES HOSPITAL SHARLA - 5 5 [facility] OUTPATIEN INC [facility]OSPITAL SH[facility] - 5 5 [facility] OUTPATIEN INC T OFFICE 11202 SH[facility]LA MICHELLE OUTPATIEN [address] [facility] T VISIT 5 HOSPITAL MINUTES P HOSPITAL SHARLA - 5 5 [facility] OUTPATIEN INC OFFICE 02746 SHARLA MICHELLE OUTPATIEN [address] [facility] T VISIT 5 HOSPITAL MINUTES P OFFICE 68488 SHARLA MICHELLE OUTPATIEN [address] [facility] T VISIT 5 HOSPITAL MINUTES P HOSPITAL SHARLA - 5 5 [facility] OUTPATIEN INC OFFICE 97515 SHARLA MICHELLE OUTPATIEN [address] [facility] T VISIT 5 HOSPITAL MINUTES P HOSPITAL SHARLA - 5 5 [facility] OUTPATIEN [facility]PITAL SHARLA - 5 5 [facility] OUTPATIEN INC T OFFICE 46183 [facility] OUTPATIEN 5 5 PHYSICIAN CAM T NEW 30 S GROUP MINUTES HOSPITAL SHARLA - 5 5 [facility] OUTPATIEN INC HOSPITAL SHARLA - 5 5 [facility] OUTPATIEN INC EMERGENCY 29110 SHARLA FAUGHN 5 5 [facility] T VISIT P HIGH/URGE NT SEVERITY HOSPITAL [facility]ERS[facility] 5 [facility] 5 [facility] UNIVERSIT - 5 5 [facility] 5 [facility] SHARLA - 5 5 [facility] UNIVERSIT - 5 5 Y [facility] UNIVERSIT - 5 5 Y [facility] UNIVERSIT [facility] 5 5 Y [facility] UNIVERSIT - [address] [facility] T OFFICE 53118 UNIVERSIT [facility] 5 5 Y T VISIT [facility] 15 [facility] UN[facility] - 5 5 Y [facility]IVERS[facility] 5 5 Y [facility] - 5 5 Y [facility] UNIVERS[facility] - 5 5 Y [facility] - 5 5 Y [facility] - 5 5 Y [facility] - 5 [address] [facility] T OFFICE 08125 UNIVERSIT [facility] 5 5 Y T VISIT [address] [place] [address] UNIVERSIT - 5 5 Y [facility] UNIVERSIT - 5 5 Y [facility] UNIVERSIT - 5 5 Y [facility] UNIVERSIT [facility] 5 5 Y [facility] UNIVERSIT - 5 5 Y [facility]PITAL T EMERGENCY 14288 UNIVERSIT 5 5 Y [facility] HIGH/URGE [facility] UNIVERSIT - 5 5 Y [facility] UNIVERSIT - 5 5 Y [facility] UNIVERSIT - 5 5 Y [facility] UNIVERSIT - 4 4 Y [facility] UNIVERSIT [facility] 4 4 Y [facility] UNIVERSIT - 4 4 Y [facility] UNIVERSIT - 4 4 Y [facility] UNIVERSIT - 4 4 Y [facility] UNIVERSIT - 4 4 Y [facility] - 4 4 Y [facility] - 4 4 Y [facility] - 4 4 Y [facility] - 4 4 Y [facility]ERS[facility] - 4 4 Y [facility] - 4 4 Y [facility] UN[facility]ERSIT - 4 4 Y [facility] UNIVERSIT - 4 4 Y [facility] OFFICE 06148 UNIVERSIT [facility] 4 4 Y [facility] 15 MINUTES OFFICE 66855 UNIVERSIT [facility] 4 4 Y VISIT HOSPITAL 40 MINUTES OFFICE 11112 AYSE WANG CONSULTAT 4 4 MEDICAL CHRISTIANO ION SERV NEW/ESTAB FOUNDATIO PATIENT N 80 MIN HOSPITAL UNIVERSIT - [address] [facility] HOSPITAL UNIVERSIT - [address] [facility] T OFFICE 64218 V[facility] MENDEZ [facility] 4 4 [employer] [facility] T NEW 10 MINUTES DEPARTMEN DEPARTMEN T T OFFICE 57146 AYSE STOKES [facility] 4 4 MEDICAL MAR T NEW 30 SERV MINUTES [facility] UNIVERSIT - [address] [facility] T EMERGENCY 47055 AVILA MUÑOZ DEPT 4 4 VISIT HIGH SEVERITY& THREAT FUN EMERGENCY 55762 VORLUANNE OROURKEKPOR DEPT 4 4 [facility] VISIT HIGH SEVERITY& THREAT FUN EMERGENCY 89464 SWINEY SWINEY 4 4 PAT PAT DEPARTMEN T VISIT HIGH/URGE NT SEVERITY
--- OUTSIDE RECORDS SUMMARY | 2017-07-08 20:51 | External Medical Summary Rpt ---
Author Author , CESAR Organization CESAR Address Unknown Phone [email or web address] Care Team Providers Care Renal Social Worker Name Role Phone ABSNER MILAGROS, ABSMATEUS Unavailable Unavailable MILAGROS [employer] Unavailable Unavailable INC, [employer] Unavailable Unavailable INC, [employer] ALLRAN JR, ALLRAN JR Unavailable Unavailable AYOOB AND, AYOOB AND Unavailable Unavailable BEINEKE, BEINEKE Unavailable Unavailable STACY, STACY Unavailable Unavailable STACY ALL, STACY ALL Unavailable Unavailable [facility] Unavailable Unavailable DEPARTMENT, [facility] Unavailable Unavailable DEPARTMENT, [facility] DEPARTMENT MÁRQUEZ JAM, MÁRQUEZ JAM Unavailable Unavailable CORTEZ DESHAUN, Unavailable Unavailable CORTEZ DESHAUN [employer] ARCHITECT, BUBBA Unavailable Unavailable [employer] ARCHITECT [employer] ARCHITECT, BUBBA Unavailable Unavailable [employer] ARCHITECT [facility], Unavailable Unavailable [facility] CASTILLO YASH, CASTILLO Unavailable Unavailable [facility] Unavailable Unavailable [facility] Unavailable Unavailable THE [facility], [facility] МАРИЯ GAR, МАРИЯ Unavailable Unavailable GAR NICO ALEJANDRA, Unavailable Unavailable NICO ALEJANDRA MICHELLE, MICHELLE Unavailable Unavailable MICHELLE PHI, Unavailable Unavailable MICHELLE PHI MICHELLE PHI, Unavailable Unavailable MICHELLE PHI MERRITT SHIRA, MERRITT SHIRA Unavailable Unavailable WELSH DESHAUN, WELSH Unavailable Unavailable DESHAUN FAUGHN LAO, FAUGHN Unavailable Unavailable LAO FEDDOCK CHRISTIANO, FEDDOCK Unavailable Unavailable CHRISTIANO FEEBACK, FEEBACK Unavailable Unavailable FRYMAN, FRYMAN Unavailable Unavailable YOKO, YOKO Unavailable Unavailable YOKO JAMES, YOKO Unavailable Unavailable JAMES SH[facility]LA [facility] Unavailable Unavailable INC, [facility] Unavailable Unavailable HOSPITAL P, [facility] HOSPITAL P [facility], Unavailable Unavailable [facility] STOKES MAR, STOKES Unavailable Unavailable MAR GRAMAJO, GRAMAJO Unavailable Unavailable GRAMAJO WANDA, GRAMAJO WANDA Unavailable Unavailable [facility], [facility] Un[facility], [facility] MERRITT JR, MERRITT JR Unavailable Unavailable MERRITT JR DWI, MERRITT Unavailable Unavailable JR DWI MAREK FAYETTE URBAN Unavailable Unavailable COGOVT, MAREK FAYETTE URBAN COGOVT MICHAELS MAR, MICHAELS Unavailable Unavailable MAR JERAMIE JOSÉ, JERAMIE Unavailable Unavailable JOSÉ [facility] Unavailable Unavailable EMS, [facility] Unavailable Unavailable EMS, [facility] [place], [place] Unavailable Unavailable [facility], Unavailable Unavailable PLLC, [...] PAT SWINEY PAT, SWINEY Unavailable Unavailable [facility] Unavailable Unavailable HOSPITALS, [facility], Unavailable Unavailable [facility] VORKPOR NICOLÁS, VORKPOR Unavailable Unavailable NICOLÁS WEST KAYLEE, WEST KAYLEE Unavailable Unavailable Purpose Continuity of Care Document - 02-14-2003 through 2016 Problems Code Diagnosis DOS Provider Status K811 CHRONIC 04-22-2017 [facility] CHOLECYSTIT PHYSICIANS IS GROUP K819 CHOLECYSTIT 04-22-2017 [facility] IS ANESTH OF UNSPECIFIED THE BLUE K828 OTHER 04-22-2017 [facility] SPECIFIED PHYSICIANS DISEASES OF GROUP GALLBLADDER R81752 ENCOUNTER 04-20-2017 [facility] PREPROCEDUR INC AL LABORATORY EXAM [...] PAIN MEM [facility]OS[facility] INC E663 OVERWEIGHT 02-13-2017 [facility] G629 POLYNEUROPA 02-13-2017 [facility] THY PHYSICIANS UNSPECIFIED GROUP M9983 OTHER 02-13-2017 [facility] BIOMECHANIC PHYSICIANS AL LESIONS GROUP OF LUMBAR REGION M546 PAIN IN 02-10-2017 [facility]ACIC [facility], SPINE PLLC R51 HEADACHE 02-05-2017 [facility]C C539 MALIGNANT 01-22-2017 [facility] NEOPLASM OF MEDICAL CERVIX IMAGING ASS UTERI UNSPECIFIED K219 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-22-2017 [facility] P WITHOUT ESOPHAGITIS M542 CERVICALGIA 01-22-2017 [facility] N938 OTHER SPEC 01-22-2017 [facility] ABNORMAL PHYSICIANS, UTERINE & PLLC VAGINAL BLEEDING N939 ABNORMAL 01-22-2017 [facility] UTERINE & MEDICAL VAGINAL IMAGING ASS BLEEDING UNSPECIFIED R55 SYNCOPE AND 01-22-2017 [facility] COLLAPSE [facility] ASS E9005OA UNSPECIFIED 01-22-2017 [facility] INJURY OF MEDICAL HEAD IMAGING ASS INITIAL ENCOUNTER X221KXC UNSPECIFIED 01-22-2017 [facility] INJURY OF MEDICAL NECK IMAGING ASS INITIAL ENCOUNTER Z720 TOBACCO USE 01-22-2017 [facility] P Z8541 PERSONAL 01-22-2017 [facility] HISTORY PHYSICIANS, MALIGNANT PLLC NEOPLASM CERVIX UTERI G10766 PAIN IN 01-16-2017 [facility]OT [facility] [id number] CONTUSION 01-16-2017 [facility] OF RIGHT PHYSICIANS, FOOT PLLC INITIAL ENCOUNTER E27633P UNSPECIFIED 01-16-2017 [employer] RIGHT FOOT S INC INITIAL ENCOUNTER G4762 SLEEP 01-14-2017 [facility] RELATED LEG PHYSICIANS CRAMPS GROUP M5127 OTH 01-14-2017 [facility] INTERVERTEB MEDICAL RAL DISC IMAGING ASS DISPLACEMEN T LS REGION N342 OTHER 01-08-2017 [facility] URETHRITIS PHYSICIANS, [facility] R1030 LOWER 01-08-2017 [facility] ABDOMINAL MEDICAL PAIN IMAGING ASS UNSPECIFIED E89076 MIGRAINE 01-04-2017 [facility] W/O AURA PHYSICIANS, NOT INTRACT PLL W/O STAT MIGRAIN D128 BENIGN 12-30-2016 [facility] NEOPLASM OF PHYSICIANS RECTUM GROUP K6289 OTHER 12-30-2016 COMMUNITY SPECIFIED ANESTH OF DISEASES OF THE BLUE ANUS AND RECTUM K648 OTHER 12-30-2016 [facility] HEMORRHOIDS PHYSICIANS GROUP K649 UNSPECIFIED 12-30-2016 COMMUNITY ANESTH OF HEMORRHOIDS THE BLUE K629 DISEASE OF 12-18-2016 [facility] ANUS AND PHYSICIANS RECTUM GROUP UNSPECIFIED E039 HYPOTHYROID 11-05-2016 [facility] ISM PHYSICIANS UNSPECIFIED GROUP Z0000 ENCOUNTER 10-15-2016 [facility] GEN ADULT PHYSICIANS MED EXAM GROUP W/O ABNORMAL FIND [id number] STRAIN 10-13-2016 [facility] MUSCLE PHYSICIANS, FASCIA & PLLC TENDON LOW BACK INITIAL G92737Y OTH [facility] 10-01-2016 [facility] COMP OTH ANESTH OF CARD VASC THE BLUE DEVC IMPL INIT ENC Z452 ENCOUNTER 10-01-2016 [facility] ADJUSTMENT& PHYSICIANS MGMT GROUP VASCULAR ACCESS DEVICE Z789 OTHER 09-29-2016 [facility] SPECIFIED PHYSICIANS HEALTH GROUP STATUS C569 MALIGNANT 09-05-2016 [place] NEOPLASM OF MEDICAL IMAGING ASS UNSPECIFIED OVARY C7989 SECONDARY 09-05-2016 [facility] MALIGNANT [facility] NEOPLASM INC OT SPECIFIED SITES W05423 MIGRAINE 08-20-2016 [facility] W/AURA NOT PHYSICIANS, INTRACT PLLC W/STATUS MIGRAINOSUS R05 COUGH 03-18-2016 [facility] P R0602 SHORTNESS 03-18-2016 [facility] V03498 MIGRAINE 02-04-2016 [facility] UNS NOT PHYSICIANS, INTRACT W/O PLLC STATUS MIGRAINOSUS R079 CHEST PAIN 12-01-2015 [facility] UNSPECIFIED MEDICAL IMAGING ASS W17465A PAIN D/T 08-30-2015 [facility] IMPL & GRAFTS INITIAL T88883M OTH SPEC 08-30-2015 [facility] IMPL GFT INIT ENC R1012 LEFT UPPER 06-30-2015 [facility] [employer] ARCHITECT QUADRANT PAIN R109 UNSPECIFIED 06-30-2015 [facility] ABDOMINAL MEDICAL PAIN IMAGING ASS R197 DIARRHEA 06-30-2015 [facility] [employer] [employer] ARCHITECT UNSPECIFIED 1809 MALIGNANT 04-25-2015 [facility] NEOPLASM PHI CERVIX UTERI UNSPECIFIED SITE 10931 SOLITARY 04-11-2015 [facility] PULMONARY MEDICAL NODULE IMAGING ASS V1041 PERSONAL 04-11-2015 [facility] HISTORY MEDICAL MALIGNANT IMAGING ASS NEOPLASM CERVIX UTERI V711 OBSERVATION 04-11-2015 [facility] FOR MEDICAL SUSPECTED IMAGING ASS MALIGNANT NEOPLASM 1749 MALIGNANT 02-28-2015 [facility] NEOPLASM OF [facility] P UNSPECIFIED SITE 4660 ACUTE 01-24-2015 [facility] P 1991 OTHER 01-16-2015 [facility] MALIGNANT PHYSICIANS NEOPLASM OF GROUP UNSPECIFIED SITE V5881 FITTING AND 01-16-2015 [facility] ADJUSTMENT MEDICAL OF IMAGING ASS VASCULAR CATHETER 2331 CARCINOMA 01-12-2015 [facility] IN SITU OF [facility] P UTERI 56931 SHORTNESS 01-06-2015 [facility] OF [facility] MEDICAL IMAGING ASS 48136 NAUSEA WITH 01-06-2015 [facility] V[facility] P E9331 ANTINEOPLAS 01-06-2015 [facility] TIC-IMMUNOS [facility] UPP [facility] P ADVRSE EFF TX USE V5811 ENCOUNTER 01-02-2015 [facility] ANTINEOPLAS TIC CHEMOTHERAP Y 6268 OTH D/O 12-18-2014 [facility] N&OTH ABN BLEED FE GNT TRACT 5718 OTHER 12-01-2014 [facility] NONALCOHOLI FOUNDATION C LIVER DISEASE 5939 UNSPECIFIED 12-01-2014 [place] [facility] DISORDER [facility] OF KIDNEY [facility]OUNDATION AND URETER 7856 ENLARGEMENT 12-01-2014 [facility] NODES V580 RADIOTHERAP 10-30-2014 [facility] 179 MALIGNANT 10-23-2014 [facility] NEOPLASM OF [facility] UTERUS PART UNSPECIFIED 1800 MALIGNANT 10-19-2014 [facility] NEOPLASM OF SERV ENDOCERVIX FOUNDATION 1968 SEC&UNSPEC 10-18-2014 [facility] NEOPLASM NODES MULTIPLE SITES 2859 UNSPECIFIED 10-04-2014 [facility] 6238 OTHER 10-04-2014 [facility] NONINFLAMMA TORY DISORDER VAGINA 17970 ABDOMINAL 10-04-2014 [facility] PAIN, SERV UNSPECIFIED FOUNDATION SITE 45013 ABDOMINAL 10-04-2014 [facility] PAIN OTHER HOSPITAL SPECIFIED SITE V153 PERS HX 10-04-2014 [facility] PRES[facility]ING [facility] 7840 HEADACHE 09-20-2014 [facility] 1820 MALIGNANT 09-08-2014 [facility] CORPUS UTERI EXCEPT ISTHMUS 6262 EXCESSIVE 09-08-2014 [facility] OR [facility] MENSTRUATIO N 1808 MALIGNANT 09-01-2014 [place] [facility] NEOP[facility] SERV OTHER FOUNDATION SPECIFIED SITES CERVIX 47264 ABD/PELVIC 08-30-2014 [facility] MASS/LUMP OTH SPEC SITE 52708 NONGONOCOCC 08-15-2014 [facility] URETHRITIS DEPARTMENT DUE CHLAMYDTRAC HOMATIS 91250 MORBID 08-09-2014 [facility] ANESTHESIA PSC 6269 UNS D/O 08-07-2014 [facility] N&OTH ABN BLEED FE GNT TRACT V7241 08-07-2014 [place] [facility]AM[facility] OR TEST FOUNDATION NEGATIVE RESULT 4590 UNSPECIFIED 08-03-2014 [facility] 6259 UNSPEC 08-03-2014 [facility] W/FEMALE GENITAL ORGANS 1123 CANDIDIASIS 02-09-2014 [facility] PAT OF SKIN AND NAILS 59821 ANAL OR 02-09-2014 [facility] PAT RECTAL PAIN V3000 SINGLE 02-16-2003 [facility] PEDIA W/O Medications Na ND Rx Da Fi Fi Am Da Di Ph RX Ph St me C No te ll ll ou ys ag ar # ys at rm s nt no ma ic us Or Da si cy ia de te s n re d BU 69 09 10 60 30 00 HO Ac OH 09 -1 -0 .0 00 ME ti [...] 08 09 60 30 00 HO Ac OH 09 -1 -0 .0 00 ME ti OP 70 1- 8- 00 06 TO ve IO 87 20 20 09 WN N 80 17 17 05 HC 3 76 PH L AR SR MA CY 15 0 OF MG CY TA NT BL HI ET AN A OH 68 07 08 14 4 00 HO [...] 07 08 60 30 00 HO Ac OH 09 -1 -0 .0 00 ME ti [...] 06 07 60 30 00 HO Ac OH 00 -1 -1 .0 00 ME ti [...] 17 17 30 TA 5 04 PH FL AR N- MA CA CY FF OF [...] 20 9- 6- 00 06 TO ve OH 05 20 20 08 WN AM 35 [...] 1 40 PH CE AR TA MA FL CY NO PH #3 EN 93 8 5- 32 5 NA 68 05 06 14 7 00 HO Ac OH 46 -1 -0 .0 00 ME ti [...] 2 67 PH CE AR TA MA FL CY NO PH OF EN CY 5- [...] 2 26 PH CE AR TA MA FL CY NO PH OF EN CY 5- NT 32 HI 5 AN A CI 16 04 05 14 7 00 HO Ac OH 57 -1 -1 .0 00 ME ti [...] 2 24 PH CE AR TA MA FL CY NO PH OF EN CY 5- [...] 2 34 PH CE AR TA MA FL CY NO PH OF EN CY 5- NT 32 HI 5 AN A CY 00 01 02 15 5 00 HO Ac CL 60 -1 -1 .0 00 ME ti OB 33 7- 0- 00 06 TO ve EN 07 20 20 07 WN ZA 93 17 17 96 OH 2 42 PH IN AR E MA 10 CY MG OF TA CY BL NT ET HI AN A OH 59 01 02 10 5 00 HO Ac ED 74 -1 -1 .0 00 ME ti NI 60 7- 0- 00 06 TO ve SO 17 20 20 07 WN NE 50 17 17 96 9 43 PH 20 AR MA MG CY TA OF BL ET CY NT HI AN A OH 68 01 02 12 30 00 HO [...] 5 73 AR CE MA TA CY FL NO PH EN 5- 32 5 OM [...] Procedure DOS Code Location Performer Comment URINE 54943 SHARLA MAGDALENO 7 [facility] TEST INC INC VISUAL COLOR CMPRSN METHS LAPAROSCO 38867 SHARLA MAGDALENO PY SURG 7 [facility] CHOLECYST INC INC ECTOMY ANES 38538 COMMUNITY FEEBACK INTRAPERI 7 ANESTH TONEAL OF THE UPPER BLUE ABDOMEN W/[place] [address] SHARLA MAGDALENO LIPASE 7 [facility] INC INC BLOOD 69899 SHARLA MAGDALENO COUNT 7 [facility] COMPLETE INC INC AUTO&AUTO DIFRNTL WBC COMPREHEN 69273 SHARLA MAGDALENO SIVE 7 [facility] [address] SHARLA MAGDALENO AMYLASE 7 [facility] INC INC COLLECTIO 20810 SHARLA MAGDALENO N VENOUS 7 [facility] [place] [address] SHARLA MAGDALENO INFUSION 7 [facility] THERAPY/P INC INC ROPHYLAXI S /DX 1ST TO 1 HR THERAPEUT 18262 SHARLA MAGDALENO IC 7 [facility] INJECTION INC INC IV PUSH EACH NEW DRUG URNLS DIP 97374 SHARLA MAGDALENO 7 [facility] STICK/TAB INC INC LET REAGENT AUTO MICROSCOP Y BLOOD 11697 SHARLA MAGDALENO COUNT 7 [facility] COMPLETE INC INC AUTO&AUTO DIFRNTL WBC URINE 31236 SHARLA MAGDALENO 7 [facility] TEST INC INC [place] [address] SHARLA MAGDALENO LIPASE 7 [facility] [place] [address] SHARLA MAGDALENO ABDOMEN & 7 MEM HOS[facility]OSP PELVIS INC INC W/[place] [address] SHARLA MAGDALENO AMYLASE 7 [facility] INC INC COMPREHEN 38868 SHARLA MADGALENO SIVE 7 MEM HOS[facility] HOSP METABOLIC INC INC PANEL TECHNETIU A9537 SHARLA MAGDALENO M TC-99M 7 MEM HOS[facility] MEM HOSP UTBROFENI INC INC N DX UP TO 15 MCI HEPATOBIL 69112 [facility] IVANINEKE SYST 7 MEDICAL IMAG INC IMAGING GB ASS W/[place] [address] SHARLA MAGDALENO ABDOMINAL 7 MEM [facility]OS[facility]OS[facility] REAL INC INC TIME W/[place] [address] SHARLA MAGDALENO THYROXINE 7 [facility] [place] [address] SHARLA MAGDALENO THYROID 7 MEM [facility] HOSP STIMULATI INC INC NG HORMONE TSH COLLECTIO 17847 SHARLA MAGDALENO N VENOUS 7 MEM HOS[facility] MEM HOSP BLOOD INC INC VENIPUNCT URE APPL 84162 SHARLA SHARLA MODALITY 7 MEM HOSP MEM HOSP 1/> AREAS INC INC TRACTION MECHANICA L APPL 77368 SHARLA MAGDALENO MODALITY 7 MEM HOS[facility] HOSP 1/> AREAS INC INC ELEC STIMJ UNATTENDE D APPLICATI 90144 SHARLA MAGDALENO ON 7 MEM HOS[facility] MEM HOSP MODALITY INC INC 1/> AREAS HOT/COLD PACKS APPL 81819 SHARLA MAGDALENO MODALITY 7 MEM HOSP MEM HOSP 1/> AREAS INC INC ULTRASOUN D EA 15 MIN THERAPEUT 05789 SHARLA SHARLA IC PX 1/> 7 [facility] H[facility]OS[facility] AREAS INC INC EACH 15 MIN EXERCISES THERAPEUT 54119 SHARLA MAGDALENO IC PX 1/> 7 [facility]OS[facility] AREAS INC INC EACH 15 MIN EXERCISES APPLICATI 81965 SHARLA MAGDALENO ON 7 MEM HOS[facility] MEM HOSP MODALITY INC INC 1/> AREAS HOT/COLD PACKS APPL 15191 SHARLA MAGDALENO MODALITY 7 MEM HOS[facility]OS[facility] 1/> AREAS INC INC TRACTION MECHANICA L APPL 62865 SHARLA MAGDALENO MODALITY 7 MEM HOS[facility] 1/> AREAS INC INC ELEC STIMJ UNATTENDE D PHYSICAL 25323 SHARLA MAGDALENO THERAPY 7 [facility] EVALUATIO INC INC N LOW COM[place] [address] [place] [address] MICHELLE STACY HEAD/BRAI 7 MEDICAL N W/O IMAGING CONTRAST ASS MATERIAL FINAL G9638 MICHELLE STACY REPORTS 7 MEDICAL W/O DOC IMAGING 1/[place] [address] [facility] HEAD/BRAI 7 MEDICAL N W/O IMAGING CONTRAST ASS MATERIAL FINAL G9638 [facility] ST[facility] REPORTS 7 MEDICAL W/O DOC IMAGING 1/MORE ASS DOSE REDUCTION TECH CREATINE 76123 SHARLA MAGDALENO KINASE MB 7 [facility]OS[facility] FRACTION INC INC ONLY COMPREHEN 56499 SHARLA MAGDALENO SIVE 7 MEM HOSP [facility] [address] MICHELLE STACY CERVICAL 7 MEDICAL SPINE W/O IMAGING CONTRAST ASS MATERIAL BLOOD 04172 SHARLA MAGDALENO COUNT 7 MEM H[facility]OS[facility] COMPLETE INC INC AUTO&AUTO DIFRNTL WBC ECG 04369 [facility] GRAMAJO ROUTINE 7 PHYSICIAN ECG S, PLLC W/LEAST 12 LDS [place] [address] SHARLA MAGDALENO TROPONIN 7 [facility] QUANTITAT INC INC VINCENT ECG 14904 SHARLA MAGDALENO ROUTINE 7 [facility]OS[facility] ECG INC INC W/LEAST 12 LDS TRCG ONLY W/O I&R FINAL RPT G[address]/MRI 7 MEDICAL CHEST/NCK IMAGING /U/S NO ASS THR NOD<1.0 CM CREATINE 69383 SHARLA MAGDALENO KINASE 7 [place] [address] [facility] TRAN[facility] 7 MEDICAL MEDICAL NAL IMAGING IMAGING ASS ASS CRTCHS E0114 [facility] UNDARM 7 TECHNOLOG TECHNOLOG OTH THAN IES INC IES INC WOOD PAIR PAD TIP&HNDGR IP RADEX 12939 MICHELLE STACY FOOT 7 MEDICAL COMPLETE IMAGING MINIMUM 3 ASS VIEWS MRI 62615 [facility] STAC[facility] SPINAL 7 MEDICAL CANAL IMAGING LUMBAR ASS W/O CONTRAST MATERIAL COLLECTIO 88967 [facility] FRYMAN N VENOUS 7 PHYSICIAN BLOOD S GROUP VENIPUNCT URE 3D 20375 MICHELLE STACY RENDERING 7 MEDICAL W/INTERP IMAGING & ASS POSTPROCE SS SUPERVISI ON COMPREHEN 02848 SHARLA MAGDALENO SIVE 7 MEM H[facility] [address] SHARLA MAGDALENO MAGNESIUM 7 MEM HOS[facility] HOS[facility] INC INC CULTURE 18749 SHARLA MAGDALENO BACTERIAL 7 MEM HOS[facility] HOS[facility] INC INC QUANTTATI VE COLONY COUNT URINE URNLS DIP 27537 SHARLA MAGDALENO 7 [facility] H[facility]OS[facility] STICK/TAB INC INC LET REAGENT AUTO MICROSCOP Y FINAL G9551 MICHELLE STACY REPR ABD 7 MEDICAL IMAG STS IMAGING W/O ASS INCIDNT FND LES NTD: FINAL G9638 MICHELLE STACY REPORTS 7 MEDICAL W/O DOC IMAGING 1/[place] [address] MICHELLE STACY ABDOMEN & 7 MEDICAL PELVIS IMAGING W/O ASS CONTRAST MATERIAL THER 87327 SHARLA MAGDALENO PROPH/DX 7 [facility] NJX IV INC INC PUSH SINGLE/1S T SBST/DRUG THERAPEUT 04852 SHARLA MAGDALENO IC 7 [facility] INJECTION INC INC IV PUSH EACH NEW DRUG THER 81645 SHARLA MAGDALENO PROPH/DX 7 [facility] NJX EA INC INC SEQL IV PUSH SBST/DRUG FAC URINE 47745 SHARLA MAGDALENO 7 [facility] TEST INC INC VISUAL COLOR CMPRSN METHS COLONOSCO 23955 SHARLA MAGDALENO PY FLX DX 7 MEM HOS[facility]OS[facility] W/COLLJ INC INC SPEC WHEN PFRMD ANES 36792 [facility] LOWER 7 ANESTH INTESTINE OF THE BLUE ENDOSCOPY DISTAL DUODENUM APPLICATI 35675 SHARLA MAGDALENO ON 7 [facility]OS[facility] MODALITY INC INC 1/> AREAS HOT/COLD PACKS THERAPEUT 82784 SHARLA MAGDALENO IC PX 1/> 7 MEM HOS[facility] AREAS INC INC EACH 15 MIN EXERCISES APPL 33492 SHARLA MAGDALENO MODALITY 7 MEM HOS[facility] MEM HOSP 1/> AREAS INC INC ELEC STIMJ UNATTENDE D PHYSICAL 85746 SHARLA MAGDALENO THERAPY 7 MEM HOS[facility] MEM HOS[facility] EVALUATIO INC INC N MOD COMPLEX 30 MINS HEPATITIS 89241 SHARLA MAGDALENO C 7 [facility]OS[facility] ANTIBODY INC INC HEPATITIS 73850 SHARLA MAGDALENO B CORE 7 [facility] [place] [address] SHARLA MAGDALENO HEPATITIS 7 [facility] B INC INC SURFACE ANTIGEN BLOOD 83930 SHARLA MAGDALENO COUNT 7 [facility] COMPLETE INC INC AUTO&[place] [address] SHARLA MAGDALENO FREE 7 [facility] [place] [address] SHARLA MAGDALENO THYROID 7 [facility] STIMULATI INC INC NG HORMONE TSH COMPREHEN 43601 SHARLA MAGDALENO SIVE 7 [facility] METABOLIC INC INC PANEL INF AGT G0432 SHARLA MAGDALENO AB DETECT 7 [facility]OS[facility] EIA TECH INC INC HIV-1&/HI V-2 SCR HEPATITIS 25551 SHARLA MAGDALENO A 7 [facility] ANTIBODY INC INC HAAB COLLECTIO 26837 SHARLA MAGDALENO N VENOUS 7 [facility] BLOOD INC INC VENIPUNCT URE RADEX 27470 [place] STACY SPINE 7 MEDICAL LUMBOSACR IMAGING AL 2/3 ASS VIEWS RADEX 85299 SHARLA MAGDALENO SPINE 7 [facility]OS[facility] LUMBOSACR INC INC AL MINIMUM 4 VIEWS RMVL JAYJAY 50911 [facility] ALLRAN JR CTR VAD 7 PHYSICIAN W/SUBQ S GROUP PORT/TAR KETTLE RUNNER CTR/PRPH INSJ GONADOTRO 55482 SHARLA MAGDALENO PIN 7 [facility] HOS[facility] CHORIONIC INC INC QUALITATI VE ANES 28756 [facility] INTEG 7 ANESTH EXTREMITI OF THE ANT BLUE TRUNK & PERINEUM NOS BLOOD 66891 SHARLA MAGDALENO COUNT 7 [facility]OS[facility] COMPLETE INC INC AUTO&AUTO DIFRNTL WBC BASIC 35989 SHARLA MAGDALENO METABOLIC 7 [facility] HOS[facility] PANEL INC INC CALCIUM TOTAL COLLECTIO 22826 SHARLA MAGDALENO N VENOUS 7 [facility] [place] [address] [facility] & 6 MEDICAL PELVIS IMAGING W/CONTRAS ASS T MATERIAL RADIOLOGI 12832 SHARLA MAGDALENO C EXAM 6 [facility] CHEST 2 INC INC VIEWS FRONTAL&L ATERAL COMPREHEN 92315 SHARLA MAGDALENO SIVE 6 [facility] METABOLIC INC INC PANEL CREATINE 83599 SHARLA MAGDALENO KINASE MB 6 [facility] FRACTION INC INC ONLY BLOOD 02863 SAHRLA MAGDALENO COUNT 6 [facility] COMPLETE INC INC AUTO&[place] [address] SHARLA MAGDALENO TROPONIN 6 [facility] QUANTITAT INC INC VINCENT ECG 13858 SHARLA BANG JR ROUTINE 6 [facility] W/LEAST P 12 LDS I&R ONLY RHYTHM 71898 SHARLA MAGDALENO ECG 1-3 6 [facility] LEADS INC INC TRACING ONLY W/O I&R CREATINE 72096 SHARLA MAGDALENO KINASE 6 [facility] TOTAL INC INC ECG 61798 SHARLA MAGDALENO ROUTINE 6 [facility] ECG INC INC W/LEAST 12 LDS TRCG ONLY W/O I&R THER 74784 SHARLA MAGDALENO PROPH/DX 6 [facility] NJX IV INC INC PUSH SINGLE/1S T SBST/[place] [address] [place] NICO HEAD/BRAI 6 MEDICAL ALEJANDRA N W/O IMAGING CONTRAST ASS MATERIAL CT THORAX 54794 [place] STACY ALL 6 MEDICAL W/CONTRAS IMAGING T ASS MATERIAL RADIOLOGI 90756 [place] REGIS ALL C EXAM 6 MEDICAL CHEST 2 IMAGING VIEWS ASS FRONTAL&L ATERAL PET 67042 [place] МАРИЯ IMAGING [address] SERV ATTENUATI FOUNDATIO ON SKULL N BASE MID-THIGH FLUORODEO A9552 [facility] XYGLUCOSE 5 Y Y F-18 FDG [facility] DX UP TO 45 MCI GLUCOSE 91862 [place] QUANTITAT 5 [facility] VINCENT BLOOD E E XCPT [facility] REAGENT STRIP PORT C1788 [place] INDWELLIN 5 [facility] G [facility] E [facility]ALS HOSPITALS GUIDE C1769 [place] WIRE 5 [facility]ALTH[facility] E [facility]OS[facility] HOSPITALS FLUORO 39881 [place] CENTRAL 5 [facility]ALTHCAR VENOUS E E ACCESS [facility] DEV PLACEMENT PROTHROMB 68866 [place] IN TIME 5 [facility] HEALTHCAR E E HOSPITALS HOSPITALS INJECTION J1644 [place] HEPARIN 5 [facility]CAR SODIUM E E PER 1000 HOSPITALS HOSPITALS UNITS BLOOD 00478 [place] COUNT 5 [facility] HEALTHCAR COMPLETE E E AUTOMATED [facility] INJECTION J1200 [place] 5 HEALTHCAR HEALTHCAR DIPHENHYD E E RAMINE [facility] HCL UP TO 50 MG INJECTION [id number] [place] FENTANYL 5 HEALTHCAR HEALTHCAR CITRATE E E 0.1 MG [facility] INFUSION J7030 [place] NORMAL 5 [facility]ALTHCAR HEALTHCAR SALINE E E SOLUTION [facility] 1000 CC INJECTION [id number] [facility] 5 HEALTHCAR HEALTHCAR CEFAZOLIN E E SODIUM [facility] 500 MG INJECTION J1642 [facility] HEPARIN 5 HEALTHCAR HEALTHCAR SODIUM E E PER 10 [facility] UNITS [place] VASC 28706 [facility] ACCESS 5 HEALTHCAR HEALTHCAR SITS VSL E E PATENCY [facility] NDL ENTRY INJECTION J2250 [facility] 5 HEALTHCAR HEALTHCAR MIDAZOLAM E E HCL PER HOSPITALS HOSPITALS 1 MG RMVL JAYJAY 95390 [facility] CTR VAD 5 HEALTHCAR HEALTHCAR W/SUBQ E E PORT/TAR KETTLE RUNNER [facility] CTR/PRPH INSJ INSJ 68930 [facility] TUNNELED 5 HEALTHCAR HEALTHCAR CTR VAD E E W/SUBQ [facility] HOSPITALS PORT AGE 5 YR/> COMPREHEN 01005 [facility] SIVE 5 HEALTHCAR HEALTHCAR METABOLIC E E PANEL [facility] LOCM Q9967 [facility]IT [phone] 5 Y Y MG/ML HOSPITAL HOSPITAL IODINE CONCENTRA TION PER ML CT THORAX 30754 [place] AYOOB AND 5 MEDICAL W/[place] [address] AYSE SALCEDOB AND ABDOMEN & 5 MEDICAL PELVIS SERV [place] [address] MICHELLE STACY ALL ABDOMEN & 5 MEDICAL PELVIS IMAGING W/[place] [address] SHARLA MAGDALENO ABDOMEN & 5 [facility] PELVIS INC INC W/CONTRAS T MATERIAL CT THORAX 77980 SHARLA SHARLA 5 [facility] W/CONTRAS INC INC T MATERIAL LOCM Q9967 SHARLA MAGDALENO [phone] 5 [facility] MG/ML INC INC IODINE CONCENTRA TION PER ML INJECTION J1642 SHARLA MAGDALENO HEPARIN 5 [facility] SODIUM INC INC PER 10 UNITS URNLS DIP 78167 SHRALA MAGDALENO 5 [facility] STICK/TAB INC INC LET REAGENT AUTO MICROSCOP Y CULTURE 73536 SHARLA MAGDALENO BACTERIAL 5 [facility] INC INC QUANTTATI VE COLONY COUNT URINE BLOOD 25387 SAHRLA MAGDALENO COUNT 5 [facility] COMPLETE INC INC AUTO&AUTO DIFRNTL WBC CHEMOTX 39848 SHARLA MAGDALENO ADMN IV 5 [facility] NFS TQ UP INC INC 1 HR SBST/DRUG GRANISETR Q0166 SHARLA MAGDALENO ON HCL 1 5 [facility] MG ORL INC INC NOT >48 HR DOSE REGIMEN INJECTION J1642 SHARLA MAGDALENO HEPARIN 5 [facility] SODIUM INC INC PER 10 UNITS COMPREHEN 81526 SHARLA MAGDALENO SIVE 5 [facility] METABOLIC INC INC PANEL INJECTION J9045 SHARLA MAGDALENO 5 [facility] CARBOPLAT INC INC IN 50 MG INJECTION J9267 SHARLA MAGDALENO 5 [facility] PACLITAXE INC INC L 1 MG INJECTION J1642 SHARLA MAGDALENO HEPARIN 5 [facility] SODIUM INC INC PER 10 UNITS CHEMOTX 85918 SHARLA MAGDALENO ADMN IV 5 [facility] NFS TQ EA INC INC SEQL NFS TO 1 HR GRANISETR Q0166 SHARLA MAGDALENO ON HCL 1 5 [facility] MG ORL INC INC NOT >48 HR DOSE REGIMEN CHEMOTX 66855 SHARLA MAGDALENO ADMN IV 5 [facility] NFS TQ UP INC INC 1 HR / SBST/DRUG CHEMOTHER 63903 SHARLA MAGDALENO APY ADMN 5 [facility] IV INC INC INFUSION TQ EA HR BLOOD 74986 SHARLA MAGDALENO COUNT 5 [facility] COMPLETE INC INC AUTO&AUTO DIFRNTL WBC COLLECTIO 68666 SHARLA MAGDALENO N VENOUS 5 [facility] BLOOD INC INC VENIPUNCT URE COMPREHEN 50991 SHARLA MAGDALENO SIVE 5 [facility] METABOLIC INC INC PANEL INSJ 14433 SHARLA MAGDALENO TUNNELED 5 [facility] CTR VAD INC INC W/SUBQ PORT AGE 5 YR/> RADIOLOGI 19861 [place] [facility] 5 MEDICAL ALEJANDRA EXAMINATI IMAGING ON CHEST ASS SINGLE VIEW FRONTAL INJECTION J2405 SHARLA MAGDALENO 5 [facility] ONDANSETR INC INC ON HCL PER 1 MG INJECTION J1642 SHARLA MAGDALENO HEPARIN 5 [facility] H[facility] SODIUM INC INC PER 10 UNITS INJECTION J0131 SHARLA MAGDALENO 5 [facility] ACETAMINO INC INC PHEN 10 MG FLUORO 15023 SHARLA MAGDALENO CENTRAL 5 [facility] VENOUS INC INC ACCESS DEV PLACEMENT ANESTHESI 62827 [facility] SHIRA A ACCESS 5 ANESTH CENTRAL OF THE VENOUS BLUE CIRCULATI ON PORT C1788 SHARLA MAGDALENO INDWELLIN 5 [facility] G INC INC BASIC 23813 SHARLA MAGDALENO METABOLIC 5 [facility] PANEL INC INC CALCIUM TOTAL BLOOD 99514 SHARLA SHARLA COUNT 5 [facility] COMPLETE INC INC AUTO&AUTO DIFRNTL WBC GONADOTRO 83959 SHARLA MAGDALENO PIN 5 [facility] CHORIONIC INC INC QUALITATI VE ECG 62661 SHARLA BANG JR ROUTINE 5 [facility] W/LEAST P 12 LDS I&R ONLY ECG 01788 SHARLA MAGDALENO ROUTINE 5 [facility] ECG INC INC W/LEAST 12 LDS TRCG ONLY W/O I&R COLLECTIO 07356 SHARLA MAGDALENO N VENOUS 5 [facility] BLOOD INC INC VENIPUNCT URE COMPREHEN 85596 SHARLA MAGDALENO SIVE 5 [facility] METABOLIC INC INC PANEL BLOOD 28070 SHARLA MAGDALENO COUNT 5 [facility] COMPLETE INC INC AUTO&AUTO DIFRNTL WBC HOSPITAL G0463 SHARLA MAGDALENO OUTPATIEN 5 [facility] T CLIN INC INC VISIT ASSESS & MGMT PT ECG 90960 SHARLA BANG JR ROUTINE 5 [facility] W/LEAST P 12 LDS I&R ONLY THERAPEUT 14937 SHARLA MAGDALENO IC 5 [facility] INJECTION INC INC IV PUSH EACH NEW DRUG RADIOLOGI 39235 [facility] 5 MEDICAL ALEJANDRA EXAMINATI IMAGING ON CHEST ASS SINGLE VIEW FRONTAL FLUORODEO A9552 [facility] XYGLUCOSE 5 Y Y F-18 FDG [facility] DX UP TO 45 MCI PET 74973 [facility] [address] [facility] ATTENUATI ON SKULL BASE MID-THIGH INJECTION J1642 SHARLA MAGDALENO HEPARIN 5 [facility] SODIUM INC INC PER 10 UNITS BLOOD 66848 SHARLA MAGDALENO COUNT 5 [facility] COMPLETE INC INC AUTO&AUTO DIFRNTL WBC COMPREHEN 25414 SHARLA MAGDALENO SIVE 5 [facility] METABOLIC INC INC PANEL INJECTION J9045 [facility] 5 Y Y CARBOPLAT [facility] IN 50 MG DEXAMETHA J8540 [facility] SONE ORAL 5 Y Y 0.25 MG HOSPITAL HOSPITAL INJECTION J9267 [facility] 5 Y Y PACLITAXE [facility] L 1 MG INFUSION J7040 [facility] NORMAL 5 Y Y SALINE [facility] SOLUTION STERILE INJ J1720 [facility] HYDROCORT 5 Y Y ISONE [facility] SODIUM SUCCINATE TO 100 MG THERAPEUT 50475 [facility] IC 5 Y Y INJECTION [facility] IV PUSH EACH NEW DRUG CHEMOTHER 13336 [facility] APY ADMN 5 Y Y IV HOSPITAL HOSPITAL INFUSION TQ EA HR CHEMOTX 27126 [facility] ADMN IV 5 Y Y NFS TQ UP [facility] 1 HR SBST/DRUG ONDANSETR Q0162 [facility] ON 1 MG 5 Y Y ORL NOT [facility] EXCEED 48 HR DOSE REG INJECTION J2060 [facility] UNIVERS 5 Y Y LORAZEPAM [facility] 2 MG INJECTION J1200 [facility] 5 Y Y DIPHENHYD [facility] RAMINE HCL UP TO 50 MG INFUSION J7050 [facility] NORMAL 5 Y Y SALINE [facility] SOLUTION 250 CC CHEMOTX 87087 [facility] ADMN IV 5 Y Y NFS TQ [facility] SEQL NFS TO 1 HR BLOOD 17831 SHARLA MAGDALENO COUNT 5 [facility]OS[facility] COMPLETE INC INC AUTO&AUTO DIFRNTL WBC INJECTION J1642 SHARLA MAGDALENO HEPARIN 5 [facility] SODIUM INC INC PER 10 UNITS COMPREHEN 51085 SHARLA MAGDALENO SIVE 5 [facility] METABOLIC INC INC PANEL IRRIGAJ 27094 SHARLA MAGDALENO IMPLNTD 5 [facility] VENOUS INC INC ACCESS DRUG DELIVERY SYST BLOOD 99371 SHARLA MAGDALENO COUNT 5 [facility]OS[facility] COMPLETE INC INC AUTO&AUTO DIFRNTL WBC INJECTION J1642 SHARLA MAGDALENO HEPARIN 5 [facility] SODIUM INC INC PER 10 UNITS COMPREHEN 88512 SHARLA MAGDALENO SIVE 5 [facility] METABOLIC INC INC PANEL COLLECTIO 27022 SHARLA MAGDALENO N VENOUS 5 [facility] H[facility] BLOOD INC INC VENIPUNCT URE INSJ PRPH 30509 [facility] CVC W/O 5 Y Y SUBQ [facility] PORT/TAR KETTLE RUNNER AGE 5 YR/> DEXAMETHA J8540 [facility] SONE ORAL 5 Y Y 0.25 MG [facility] COMPREHEN 14419 [facility] SIVE 5 Y Y METABOLIC [facility] PANEL INJ J1720 [facility] HYDROCORT 5 Y Y ISONE [facility] SODIUM SUCCINATE TO 100 MG INJECTION J9267 [facility] 5 Y Y PACLITAXE [facility] L 1 MG INFUSION J7040 [facility] NORMAL 5 Y Y SALINE [facility] SOLUTION STERILE INFUSION J7050 [facility] NORMAL 5 Y Y SALINE [facility] SOLUTION 250 CC INJECTION J2060 [facility] 5 Y Y LORAZEPAM [facility] 2 MG CHEMOTX 81035 [facility] ADMN IV 5 Y Y NFS TQ [facility] SEQL NFS TO 1 HR BLOOD 21920 [facility] COUNT 5 Y Y COMPLETE [facility] AUTO&AUTO DIFRNTL WBC INJECTION J1200 [facility] UP TO 50 MG THERAPEUT 34812 [facility] IC 5 Y Y INJECTION [facility] IV PUSH EACH NEW DRUG CHEMOTHER 89902 [facility] APY ADMN 5 Y Y IV [facility] INFUSION TQ EA HR ONDANSETR Q0162 [facility] ON 1 MG 5 Y Y ORL NOT [facility] EXCEED 48 HR DOSE REG CHEMOTX 38239 [facility] ADMN IV 5 Y Y NFS TQ UP [facility] 1 HR SBST/[place] [address] [facility] ABDOMEN & 5 Y Y PELVIS [facility] W/CONTRAS T [facility]ERIAL [facility] THORAX 80632 [facility] 5 Y Y [facility] SOFT 99784 [facility] TISSUE 5 Y Y NECK [facility] LOCM Q99[facility] [phone] 5 Y Y MG/ML [facility] IODINE CONCENTRA TION PER ML ANESTHESI 74647 [place] [facility] A VAGINAL 5 MEDICAL DESHAUN SERVICES PROCEDURE W/BIOPSY NOS INSERTION 26901 [facility] UTERINE 5 Y Y TANDEM&/V [facility] AGINAL OVOIDS INJECTION J2405 [facility] 5 [facility] PER 1 MG CONTINUIN 09287 [facility] MEDICAL 5 Y Y PHYSICS [facility] [place] [address] [facility] DEVICES 5 Y Y DESIGN & [facility] CONSTRUCT ION SIMPLE THER RAD 26976 [facility] SIMULAJA 5 Y Y [facility] FIELD SETTING COMPLEX INJECTION J1200 [facility] 5 Y Y [facility] H[facility] UP TO 50 MG INJECTION J2175 [facility] 5 Y Y [facility] E HCL PER 100 MG BRACHYTX C1717 [facility] NONSTRAN 5 Y Y ED [facility] DOSE IRIDIUM-1 92 PER SRC INJECTION J1100 [facility] 5 Y Y DEXAMETHO [facility] SONE SODIUM PHOSPHATE [address] [facility] 5 Y Y RADIONUCL [facility] MATTIE BRACHYTX 2-12 CHANNEL INJECTION J2250 [facility] 5 Y Y MIDAZOLAM [facility] HCL PER 1 MG BRACHYTX 78372 [facility] ISODOSE 5 Y Y PLN [facility] INTERMED W/DOSIMET RY CALVIN INFUSION J7030 [facility] NORMAL 5 Y Y SALINE [facility] SOLUTION 1000 CC INJECTION J2704 [facility] PROPOFOL 5 Y Y 10 MG HOSPITAL HOSPITAL INJECTION J3010 [facility] FENTANYL 5 Y Y CITRATE [facility] 0.1 MG INJECTION J2704 [facility] PROPOFOL 5 Y Y 10 MG HOSPITAL HOSPITAL BRACHYTX 26078 [facility] 5 MED[address] [place]O PLN SERV INTERMED FOUNDATIO W/DOSIMET N RY CALVIN REMOTE 77077 [facility] 5 MEDICAL CHRISTIANO RADIONUCL SERV MATTIE FOUNDATIO BRACHYTX N 2-12 CHANNEL INJECTION J1170 [facility] 5 Y Y HYDROMORP [facility] RADHA UP TO 4 MG INJECTION J2175 [facility] 5 [facility] PER 100 MG BRACHYTX C1717 [facility] NONSTRAND 5 Y Y ED [facility] DOSE IRIDIUM-1 92 PER SRC INJECTION J1200 [place] [address] Y Y [facility] RAMINE HCL UP TO 50 MG THER RAD 72134 AYSE BONNERKALPANA SIMULAJ-A 5 MEDICAL [place]RISTIANO IDED SERV [place] [address] AYSE [place] DEVICES 5 MEDICAL MEDICAL DESIGN & SERV SERV CONSTRUCT FOUNDATIO FOUNDATIO ION N N SIMPLE CONTINUIN 90323 [facility] 5 Y Y [facility] CONSLT [place] ANESTHESI 70704 AYSE CORTEZ A VAGINAL 5 MEDICAL DESHAUN SERVICES PROCEDURE W/BIOPSY NOS INSERTION 90174 [facility] UTERINE 5 Y Y TANDEM&/V [facility] AGINAL OVOIDS INSERTION 27695 AYSE FEDDOCK UTERINE 5 MEDICAL CHRISTIANO TANDEM&/V SERV AGINAL FOUNDATIO OVOIDS N ANESTHESI 52989 AYSE JUSTIN A VAGINAL 5 MEDICAL CRY SERVICES PROCEDURE W/BIOPSY NOS THER RAD 81588 AYSE BONNERNEREIDA SIMULAJ-A 5 MEDICAL [place]RISTIANO IDED SERV [place] [address] AYSE WANG DEVICES 5 MEDICAL [facility]RISTIANO DESIGN & SERV CONSTRUCT FOUNDATIO ION N SIMPLE REMOTE 05855 AYSE BONNERNEREIDA AFTLD 5 MEDICAL CHRISTIANO RADIONUCL SERV MATTIE FOUNDATIO BRACHYTX N 2-12 CHANNEL BRACHYTX 79743 AYSE KATHLEEN ISODOSE 5 MEDICAL CHRISTIANO PLN SERV INTERMED FOUNDATIO W/DOSIMET N RY CALVIN INJECTION J2250 [facility] 5 Y Y [facility] HCL PER 1 MG INJECTION J3010 [facility] 5 Y Y [facility] 0.1 MG RADIATION 90360 [place] [address] Y Y [facility] 1 MEV => COMPLEX RADIATION 64592 [place] [address] Y Y [facility] 1 MEV => COMPLEX INJECTION J3475 [facility] SULPHATE PER 500 MG RADIATION 78898 [facility] 5 Y Y [facility]OSPITAL HOSPITAL DELIVERY 1 MEV => COMPLEX INFUSION J7030 [facility] NORMAL 5 Y Y SALINE HOSPITAL [facility] SOLUTION 1000 CC BLOOD 79219 [facility] COUNT 5 Y Y COMPLETE [facility] AUTO&[place] [address] [facility] INFUSION 5 Y Y THERAPY HOSPITAL [facility] PROPHYLAX IS/DX EA HOUR CHEMOTX 81664 [facility] ADMN IV 5 Y Y NFS TQ UP [facility] 1 HR / SBST/DRUG ONDANSETR Q0162 [facility] ON 1 MG 5 Y Y ORL NOT [facility] EXCEED 48 HR DOSE REG INJECTION J9060 [facility] 5 Y Y CISPLATIN [facility] POWDER OR SOLUTION 10 MG DEXAMETHA J8540 [facility] SONE ORAL 5 Y Y 0.25 MG [facility] APREPITAN J8501 [facility] T ORAL 5 5 [place] [address] [facility] INFUSION 5 Y Y THER [facility] PROPH ADDL SEQUENTIA L TO 1 HR COMPREHEN 27717 [facility] SIVE 5 Y Y METABOLIC [facility] PANEL INJECTION J3480 [facility] 5 Y Y POTASSIUM [facility] CHLORIDE PER 2 MEQ INFUSION J7040 [facility] NORMAL 5 Y Y SALINE [facility] SOLUTION STERILE COLLECTIO 89229 [facility] N VENOUS 5 Y Y BLOOD HOSPITAL [facility] VENIPUNCT URE RADIATION 15587 [facility] 5 Y Y [facility] DELIVERY 1 MEV => COMPLEX RADIATION 36439 [facility] 5 Y Y [facility]OSPITAL DELIVERY 1 MEV => COMPLEX RADIATION 94399 PA ANGI 5 MEDICAL CHRISTIANO TREATMENT SERV FOUNDATIO MANAGEMEN N T 5 TREATMENT S BLOOD 34671 [facility] COUNT 5 Y Y COMPLETE [facility] AUTOMATED ECG 14520 [facility] ROUTINE 5 Y Y ECG [facility] W/LEAST 12 LDS TRCG ONLY W/O I&R CONTINUIN 60834 [facility] MEDICAL 5 Y Y PHYSICS HOSPITAL [facility] [place]SLTJ [place] BASIC 20331 [facility] METABOLIC 5 Y Y PANEL [facility] CALCIUM TOTAL CULTURE 68860 [facility] BACTERIAL 5 Y Y [facility] QUANTTATI VE COLONY COUNT URINE URNLS DIP 47057 [facility] 5 Y Y STICK/TAB HOSPITAL HOSPITAL LET REAGENT AUTO MICROSCOP Y ECG 74594 [place] ROB LINDSAY ROUTINE 5 MEDICAL ECG SERV W/LEAST FOUNDATIO 12 LDS N I&R ONLY COLLECTIO 56765 [facility] VENOUS 5 Y Y BLOOD [facility] VENIPUNCT URE THERAPEUT 44898 [facility] 5 Y Y RADIOLOGY [facility] PORT IMAGES(S) RADIATION 81099 [facility] 5 Y Y TREATMENT [facility] DELIVERY 1 MEV => COMPLEX RADIATION 55674 [facility] 5 Y Y TREATMENT [facility] DELIVERY 1 MEV => COMPLEX RADIATION 07204 [facility] 5 Y Y TREATMENT [facility] DELIVERY 1 MEV => COMPLEX COMPREHEN 42340 [facility] Y Y METABOLIC [facility] PANEL IV NFS 68779 [facility] 5 Y Y PROPHYLAX [facility] IS/DX CONCURREN T NFS INJECTION J3475 [facility] 5 Y Y MAGNESIUM [facility]OSPITAL SULPHATE PER 500 MG INJECTION J1453 [facility] 5 Y Y FOSAPREPI [facility] TANT 1 MG INJECTION J3480 [facility] 5 Y Y POTASSIUM [facility] CHLORIDE PER 2 MEQ INFUSION J7030 [facility] NORMAL 5 Y Y SALINE [facility] SOLUTION 1000 CC INFUSION J7050 [facility] NORMAL 5 Y Y SALINE [facility] SOL[place] [address] [facility] INFUSION 5 Y Y THERAPY [facility] PROPHYLAX IS/DX EA HOUR ONDANSETR Q0162 [facility] ON 1 MG 5 Y Y ORL NOT HOSPITAL HOSPITAL EXCEED 48 HR DOSE REG CHEMOTX 78264 [facility] ADMN IV 5 Y Y NFS TQ UP [facility] 1 HR SBST/DRUG BLOOD 96687 [facility] COUNT 5 Y Y COMPLETE [facility] AUTO&AUTO DIFRNTL WBC COLLECTIO 15813 [facility] N VENOUS 5 Y Y BLOOD [facility] VENIPUNCT URE INFUSION J7040 [facility] NORMAL 5 Y Y SALINE [facility] [place] [address] [facility] INFUSION 5 Y Y THER [facility] PROPH ADDL SEQUENTIA L TO 1 HR DEXAMETHA J8540 [facility] SONE ORAL 5 Y Y 0.25 [facility] HOSPITAL INJECTION J9060 [facility] 5 Y Y CISPLATIN [facility] POWDER OR SOLUTION 10 MG AMB A0427 [facility] SERVICE 5 [place] ALS URBAN URBAN EMERGENCY COGOVT COGOVT TRANSPORT LEVEL 1 GROUND A0425 [facility] MILEAGE 5 [place] PER URBAN URBAN STATUTE COGOVT COGOVT MILE RADIATION 11124 [facility] 5 Y Y TREATMENT [facility]OSPITAL DELIVERY 1 MEV => COMPLEX RADIATION 12109 [facility] 5 Y Y TREATMENT [facility] DELIVERY 1 MEV => COMPLEX RADIATION [address] [place] [address] MEDICAL CHRISTIANO TREATMENT SERV FOUNDATIO MANAGEMEN N T 5 TREATMENT S GLUCOSE 17557 [facility] QUANTITAT 5 Y Y VINCENT BLOOD [facility] XCPT REAGENT STRIP THERAPEUT 30334 [facility] 5 Y Y RADIOLOGY [facility] PORT IMAGES(S) CONTINUIN 95607 [facility] G MEDICAL 5 Y Y PHYSICS [facility] CONSLTJ [place] RADIATION 93693 [facility] 5 Y Y TREATMENT [facility] DELIVERY 1 MEV => COMPLEX RADIATION 31191 [facility] 5 Y Y TREATMENT [facility]OSPITAL DELIVERY 1 MEV => COMPLEX COMPREHEN 19607 [facility] 5 Y Y METABOLIC [facility] PANEL INJECTION J3475 [facility] 5 Y Y [facility] SULPHATE PER 500 MG INFUSION J7030 [facility] NORMAL 5 Y Y SALINE [facility] SOLUTION 1000 CC INJECTION J3480 [facility] 5 Y [facility] CHLORIDE PER 2 MEQ APREPITAN J8501 [facility] T ORAL 5 5 [place] [address] [facility] INFUSION 5 Y Y THERAPY [facility] PROPHYLAX IS/DX EA HOUR CHEMOTX 36895 [facility] ADMN IV 5 Y Y NFS TQ UP [facility] 1 HR SBST/DRUG ONDANSETR Q0162 [facility] ON 1 MG 5 Y Y ORL NOT HOSPITAL HOSPITAL EXCEED 48 HR DOSE REG BLOOD 55145 [facility] COUNT 5 Y Y COMPLETE [facility] AUTO&AUTO DIFRNTL WBC INJECTION J9060 [facility] 5 Y Y CISPLATIN [facility] POWDER OR SOLUTION 10 MG DEXAMETHA J8540 [facility] SONE ORAL 5 Y Y 0.25 [place] [facility] [address] [facility] INFUSION 5 Y Y THER [facility] PROPH ADDL SEQUENTIA L TO 1 HR INFUSION J7040 [facility] NORMAL 5 Y Y SALINE [facility] SOLUTION STERILE COLLECTIO 76572 [facility] N VENOUS 5 Y Y BLOOD [facility] VENIPUNCT URE RADJ DLVR 41457 [facility] 3/> 4 Y Y [facility] CUSTOM BLKING 08-16MEV RADJ DLVR 14782 [facility] 3/> 4 Y Y [facility] CUSTOM BLKING 08-16MEV RADJ DLVR 28786 [facility] 3/> 4 Y Y [facility] CUSTOM BLKING 08-16MEV THERAPEUT 35272 [facility] IC 4 Y Y RADIOLOGY [facility] PORT IMAGES(S) CONTINUIN 36377 [facility] MEDICAL 4 Y Y PHYSICS [facility] CONSLTJ [place] RADIATION 62811 [facility] TREAT[facility] SERV FOUNDATIO MANAGEMEN N T 5 TREATMENT S RADJ DLVR 68463 [facility] 3/> 4 Y Y [facility] [place] 08[place] [address] AYSE [facility]AROS[facility] HEAD/BRAI 4 MEDICAL FLA N W/O & SERV W/CONTRAS FOUNDATIO T N MATERIAL LOCM Q9967 [facility] [phone] 4 Y Y MG/ML [facility] IODINE CONCENTRA TION PER ML RADJ DLVR 79721 [facility] 3/> 4 Y Y [facility] CUSTOM BLKING 08-16MEV RADJ DLVR 80009 [facility] 3/> 4 Y Y [facility] CUSTOM BLKING 08-16MEV RADJ DLVR 37761 [facility] 3/> 4 Y Y [facility] CUSTOM BLKING 08-16MEV ONDANSETR Q0162 [facility] ON 1 MG 4 Y Y ORL NOT HOSPITAL HOSPITAL EXCEED 48 HR DOSE REG CHEMOTX 37477 [facility] ADMN IV 4 Y Y NFS TQ UP [facility] 1 HR SBST/[place] [address] [facility] 4 Y Y THERAPY [facility] PROPHYLAX IS/DX EA HOUR BLOOD 87005 [facility] COUNT 4 Y Y COMPLETE [facility] AUTO&AUTO DIFRNTL WBC COMPREHEN 80997 [facility] SIVE 4 Y Y [facility] PANEL INFUSION J7040 [facility] NORMAL 4 Y Y SALINE [facility] SOLUTION STERILE INJECTION J3475 [facility] 4 Y Y [facility] SULPHATE PER 500 MG APREPITAN J8501 [facility] T ORAL 5 4 Y Y [facility] INJECTION J3480 [facility] 4 Y Y [facility] CHLORIDE PER 2 MEQ INFUSION J7030 [facility] NORMAL 4 Y Y SALINE [facility] SOL[place] [address] [place] [address] [facility] 4 Y Y THER [facility] PROPH ADDL SEQUENTIA L TO 1 HR INJECTION J9060 [facility] 4 Y Y CISPLATIN [facility] POWDER OR SOLUTION 10 MG DEXAMETHA J8540 [facility] SONE ORAL 4 Y Y 0.25 MG [facility] COLLECTIO 69935 [facility] N VENOUS 4 Y Y BLOOD [facility] VENIPUNCT URE RADIATION 25945 [facility] 4 MEDICAL JOSÉ TREATMENT SERV FOUNDATIO MANAGEMEN N T 5 TREATMENT S RADJ DLVR 38189 [facility] 3/> 4 Y Y [facility] CUSTOM BLKING 08-16MEV CONTINUIN 45004 [facility] MEDICAL 4 Y Y PHYSICS [facility] CONSLT [place] THERAPEUT 92328 [facility] 4 Y Y RADIOLOGY [facility] PORT IMAGES(S) RADJ DLVR 15238 [facility] 3/> 4 Y Y [facility] CUSTOM BLKING 08-16MEV RADJ DLVR 53151 [facility] [facility] 3/> 4 Y Y [facility] CUSTOM BLKING 08-16MEV RADJ DLVR 67490 [facility]/> 4 Y Y [facility] [place] 08-16[place] [address] [facility] INFUSION 4 Y Y THERAPY [facility] PROPHYLAX IS/DX EA HOUR CHEMOTX 25408 [facility] ADMN IV 4 Y Y NFS TQ UP [facility] 1 HR SBST/DRUG ONDANSETR Q0162 [facility] ON 1 MG 4 Y Y ORL NOT HOSPITAL HOSPITAL EXCEED 48 HR DOSE REG BLOOD 19208 [facility] COUNT 4 Y Y COMPLETE [facility] AUTO&AUTO DIFRNTL WBC COMPREHEN 93797 [facility] SIVE 4 Y Y METABOLIC [facility] PANEL INFUSION J7040 [facility] NORMAL 4 Y Y SALINE [facility] SOLUTION STERILE INJECTION J3475 [facility] 4 Y Y MAGNESIUM [facility] SULPHATE PER 500 MG INFUSION J7030 [facility] NORMAL 4 Y Y SALINE [facility] SOLUTION 1000 CC APREPITAN J8501 [facility] T ORAL 5 4 Y Y MG HOSPITAL HOSPITAL INJECTION J3480 [facility] CHLORIDE PER 2 MEQ COLLECTIO 93182 [facility] N VENOUS 4 Y Y BLOOD [facility] VENIPUNCT URE DEXAMETHA J8540 [facility] SONE ORAL 4 Y Y 0.25 MG HOSPITAL HOSPITAL INJECTION J9060 [facility] 4 Y Y CISPLATIN [facility] HOSPITAL POWDER [place] 10 [place] [address] [facility] INFUSION 4 Y Y THER [facility] PROPH ADDL SEQUENTIA L TO 1 HR THER RAD 59852 [facility] 4 Y Y [facility] FIELD SETTING SIMPLE RADIATION 78901 [facility] TREATMENT SERV FOUNDATIO MANAGEMEN N T 5 TREATMENT S RADJ DLVR 55837 [facility] 3/> 4 Y Y AREAS [facility] CUSTOM BLKING 08-16[place] [address] [facility] DEVICES 4 Y Y DESIGN & HOSPITAL HOSPITAL CONSTRUCT ION COMPLEX 3-D 03965 [facility] RADIOTHER 4 Y Y APY [facility] DOSE-VOLU ME HISTOGRAM S BASIC 04467 [facility] RADIATION 4 Y Y [facility] [place] [address] [facility] GUIDANCE 4 Y Y RADIATION [facility] HOSPITAL THERAPY FLDS PLACEMENT THERAPEUT 79664 AYSE ALLAN 4 MEDICAL CHRISTIANO RADIOLOGY SERV TX FOUNDATIO PLANNING [place] 46642 [facility] 4 Y Y [facility] FIELD SETTING COMPLEX FLUORODEO A9552 [facility] XYGLUCOSE 4 Y Y F-18 FDG [facility] DX UP TO 45 MCI PET 32415 [facility] IMAGING [address] [facility] ATTENUATI ON SKULL BASE MID-THIGH LOCM Q9967 [facility] [phone] 4 Y Y MG/ML HOSPITAL HOSPITAL [place] [address] [facility] ABDOMEN & 4 Y Y PELVIS [facility] W/CONTRAS T MATERIAL CT THORAX 78111 [facility] 4 Y Y W/CONTRCENTRAL [facility] T MATERIAL ANES 58724 JUVENAL MICHAELS HYSTEROSC 4 LTH MAR OPY&/HYST ANESTHESI EROSALPIN A P[place] GOGRAP[place] W/[place] L[place] [address] [facility] SURG 4 Y OF PATHOLOGY [place] [facility] GROSS&JAMES ROSCOPIC EXAM PATH 73747 [facility] CONSLTJ 4 Y OF SURG 1ST [place] BLK HOSPI FROZEN SCTJ 1 SPEC IMHISTOCH 63203 [facility] EM/CYTCHM 4 Y OF [place] ANTIBODY HOSPI STAIN PROCEDURE HYSTEROSC 95917 AYSE STOKES OPY BX 4 MEDICAL MAR ENDOMETRI SERV UM&/POLYP FOUNDATIO C W/WO N D&C CYTP 61192 [facility] CERV[facility]/ 4 Y OF MILAGROS VAGINAL [place] REQ HOSPI INTERP PHYSICIAN CYTP C/V 19461 [facility] AUTO THIN 4 Y Y LYR [facility] PREPJ SCR MNL RESCR PHYS BLOOD 34193 [facility] COUNT 4 Y Y HEMOGLOBI [facility] N URINE 38724 AYSE STOKES 4 MEDICAL MAR TEST SERV VISUAL FOUNDATIO COLOR N CMPRSN METHS BLOOD 92088 [facility] COUNT 4 Y [facility] T COLLECT[facility] 71124 [facility] N VENOUS 4 Y Y [facility] VENIPUNCT URE AMBULANCE A0429 [facility] SERVICE 4 [facility] EMERGENCY EMS EMS TRANSPORT GROUND A[address] [facility] [place] [address] [facility] [place] CHANG TRANSVAGI [address] [place] [address] [facility] [place] MÁRQUEZ JAM ABDOMEN & 4 RADIOLOGY PELVIS W/CONTRAS T MATERIAL BLOOD 61018 SWINE[facility] SWINEY OCCULT 4 PAT PAT PEROXIDAS E ACTV QUAL FECES 1-3 [facility] 16540 [facility] DISCHARGE 3 Y OF YASH DAY [place] MANAGEMEN PEDIA T 30 MIN/< [facility] HOSP 60127 [facility] CARE 3 Y OF YASH F/E/M NML [place] NB OH D PEDIA HX&XM NML 13465 [facility] NB INFT 3 Y OF YASH INITIATIO [place] N DX&TX PEDIA Encounters Encounter Start End Date Code Location Performer Type Date HOSPITAL [facility] - 7 7 [facility] OUTPATIEN [facility] OFFICE 49271 [facility] 7 7 PHYSICIAN T VISIT S GROUP 15 MINUTES HOSPITAL SHARLA - 7 7 [facility] OUTPATIEN [facility] EMERGENCY 35418 [facility] DEPT 7 7 PHYSICIAN VISIT S, PLLC HIGH SEVERITY& THREAT FUNC EMERGENCY 09254 SHARLA 7 7 MEM [facility] DEPARTMEN [facility] T VISIT HIGH/URGE NT SEVERITY HOSPITAL SHARLA - 7 7 [facility] OUTPATIEN [facility] HOSPITAL SHARLA - 7 7 [facility]PATIEN [facility] SHARLA - 7 7 [facility]PATI[facility] SHARLA - 7 7 [facility]PATIEN [facility] HOSPITAL SHARLA - 7 7 MEM [facility] OUTPATIEN [facility] OFFICE 33166 [facility] 7 7 PHYSICIAN T VISIT S GROUP 25 MINUTES EMERGENCY 63250 COLIN VILLASENOR 7 7 PHYSICIAN DEPARTMEN S, PLLC T VISIT HIGH/URGE NT SEVERITY EMERGENCY 33742 [facility] DEPT 7 7 PHYSICIAN VISIT S, PLLC HIGH SEVERITY& THREAT FUNC HOSPITAL SHARLA - 7 7 [facility] OUTPATIEN INC T EMERGENCY 49283 COLIN GRAMAJO DEPT 7 7 PHYSICIAN VISIT S, PLLC HIGH SEVERITY& THREAT FUNCJ EMERGENCY 11701 SHARLA 7 7 MEM HOSP DEPARTMEN INC T VISIT MODERATE SEVERITY EMERGENCY 24809 [facility] BABCOCK 7 7 PHYSICIAN DEPARTMEN S, PLLC T VISIT HIGH/URGE NT SEVERITY HOSPITAL SHARLA - 7 7 [facility] OUTPATIEN INC T OFFICE 37452 [facility] OUTPATIEN 7 7 PHYSICIAN T VISIT S GROUP 25 MINUTES OFFICE 39337 [facility] OUTPATIEN 7 7 PHYSICIAN T VISIT S GROUP 25 MINUTES EMERGENCY 82944 SHARLA 7 7 MEM [facility]OSP DEPARTMEN INC T VISIT LOW/MODER SEVERITY EMERGENCY 62944 [facility] BABCOCK 7 7 [facility] HIGH/URGE NT SEVERITY HOSPITAL SHARLA - 7 7 [facility] OUTPATIEN INC T EMERGENCY 50890 SHARLA 7 7 [facility] DEPARTMEN INC T VISIT MODERATE SEVERITY EMERGENCY 28598 [facility] SARGENT 7 7 PHYSICIAN U DEPARTMEN S, [facility] VIS[facility] HIGH/URGE NT SEVERITY HOSPITAL SHARLA - 7 7 [facility] OUTPATIEN INC T HOSPITAL SHARLA - 7 7 [facility] OUTPATIEN INC T OFFICE 94446 [facility] OUTPATIEN 7 7 PHYSICIAN T VISIT S GROUP 25 MINUTES OFFICE 18912 [facility] MARY[facility] OUTPATIEN 7 7 PHYSICIAN T VISIT S GROUP 15 MINUTES HOSPITAL SHARLA - 7 7 MEM [facility] OUTPATIEN INC T HOSPITAL SHARLA - 7 7 MEM [facility] OUTPATIEN INC T OFFICE 70912 [facility] WHITEPATIEN 7 7 PHYSICIAN T VISIT S GROUP 25 MINUTES HOSPITAL SHARLA - 7 7 MEM [facility] OUTPATIEN INC T OFFICE 40908 [facility] OUTPATIEN 7 7 PHYSICIAN T NEW 30 S GROUP MINUTES EMERGENCY 11345 COLIN BABCOCK 7 7 PHYSICIAN DEPARTMEN S, [facility] T VISIT MODERATE SEVERITY HOSPITAL SHARLA - 7 7 MEM [facility] OUTPATIEN INC T OFFICE 70016 [facility] MARY[facility] OUTPATIEN 7 7 PHYSICIAN T VISIT S GROUP 10 MINUTES HOSPITAL SHARLA - 7 7 MEM [facility] OUTPATIEN [facility] T OFFICE 83545 SH[facility]LA [facility] 6 6 [facility] 15 P MINUTES HOSPITAL SHARLA - 6 6 [facility]PATI[facility] T OFFICE 49329 SHARLA MICHELLE OUTPATIEN 6 6 [facility] 10 P MINUTES EMERGENCY 96039 COLIN HAMMONDS 6 6 PHYSICIAN DEBBY BRAUNMEN S, [facility] T VISIT HIGH/URGE NT SEVERITY EMERGENCY 33963 COL[facility] BABCOCK DEPT 6 6 PHYSICIAN JAMES VISIT S, [facility] HIGH SEVERITY& THREAT [facility] SHARLA - 6 6 [facility] OUTPATIEN INC T EMERGENCY 26036 SHARLA 6 6 MEM HOSP DEPARTMEN INC T VISIT MODERATE SEVERITY EMERGENCY 19289 [facility]IN [facility] 6 6 PHYSICIAN DEPARTMEN S, [facility] T VISIT HIGH/URGE NT SEVERITY EMERGENCY 44462 COLIN OWENEY DEPT 6 6 PHYSICIAN JAMES VISIT S, [facility] HIGH SEVERITY& THREAT [facility] UNIVERSIT - [address] [facility] - 5 5 [facility] UNIVERSIT - 5 5 Y [facility] T EMERGENCY 95736 BUBBA MAC DEPT 5 5 S[facility]IOR [facility] ARCHITECT SENIOR MO[facility] SOLUTIONS ARCHITECT VISIT HIGH SEVERITY& THREAT FUN OFFICE 56036 MICHELLE MICHELLE OUTPATIEN 5 5 [facility] T VISIT 5 MINUTES HOSPITAL SHARLA - 5 5 MEM [facility] OUTPATIEN INC HOSPITAL SHARLA - 5 5 [facility] OUTPATIEN INC T OFFICE 67800 SHARLA MICHELLE OUTPATIEN 5 5 [facility] T VISIT 5 HOSPITAL MINUTES P HOSPITAL SHARLA - 5 5 MEM [facility] OUTPATIEN INC OFFICE 15299 SHARLA MICHELLE OUTPATIEN 5 5 [facility] T VISIT 5 HOSPITAL MINUTES P OFFICE 56043 SHARLA MICHELLE OUTPATIEN 5 5 [facility] T VISIT 5 HOSPITAL MINUTES P HOSPITAL SHARLA - 5 5 MEM [facility] OUTPATIEN INC OFFICE 05467 SHARLA MICHELLE OUTPATIEN 5 5 [facility] T VISIT 5 HOSPITAL MINUTES P HOSPITAL SHARLA - 5 5 MEM [facility] OUTPATIEN [facility] HOSPITAL SHARLA - 5 5 MEM [facility] OUTPATIEN INC T OFFICE 75801 [facility] OUTPATIEN 5 5 PHYSICIAN CAM T NEW 30 S GROUP MINUTES HOSPITAL SHARLA - 5 5 [facility] OUTPATIEN INC HOSPITAL SHARLA - 5 5 [facility] OUTPATIEN INC EMERGENCY 98507 SHARLA FAUGHN 5 5 [facility] T VISIT P HIGH/URGE NT SEVERITY [facility] SH[facility] - 5 5 [facility] OUTPATIEN [facility] HOSPITAL UNIVERSIT - 5 5 [facility] SHARLA - 5 5 [facility] 5 [facility] SH[facility] - 5 5 [facility]ERS[facility] - 5 5 [facility] 5 5 Y [facility] 5 5 [facility] - 5 5 Y [facility] T OFFICE 55133 UNIVERSIT [facility] 5 5 Y T VISIT [facility] 15 [facility] UNIVERS[facility] 5 5 [facility] - 5 5 Y [facility] UNIVERSIT - 5 5 Y [facility] - 5 5 [facility] 5 5 [facility] 5 5 [facility] - 5 5 Y [facility] T OFFICE 83465 UNIVERSIT [facility] 5 5 Y T VISIT [address] [place] [address] UNIVERSIT - 5 5 Y [facility]ERS[facility] - 5 5 [facility] - 5 5 [facility] - 5 5 Y [facility] UNIVERSIT - 5 5 Y [facility]OSPITAL T EMERGENCY 25823 UNIVERSIT 5 5 Y [facility] HIGH/URGE [facility] UNIVERSIT [facility] 5 5 Y [facility] - 5 5 [facility] - 5 5 [facility] - 4 4 Y [facility] - 4 4 Y [facility] - 4 4 Y [facility] - 4 4 Y [facility] - 4 4 Y [facility] - 4 4 Y [facility] - 4 4 Y [facility] - 4 4 Y [facility] - 4 4 Y [facility] - 4 4 Y [facility] - 4 4 Y [facility] - 4 4 Y [facility] - 4 4 Y [facility] UNIVERSIT - 4 4 Y [facility] OFFICE 19526 [facility] 4 4 Y [facility] 15 MINUTES OFFICE 61590 [facility] 4 4 Y VISIT HOSPITAL 40 MINUTES OFFICE 00660 AYSE WANG CONSULTAT 4 4 MEDICAL CHRISTIANO ION SERV NEW/ESTAB FOUNDATIO PATIENT N 80 MIN HOSPITAL UNIVERSIT - 4 4 Y [facility] T HOSPITAL UNIVERSIT - 4 4 Y [facility] T OFFICE 07300 VANESSA MENDEZ [facility] 4 4 [facility] NEW 10 MINUTES DEPARTMEN DEPARTMEN T T OFFICE 67105 AYSE STOKES [facility] 4 4 MEDICAL MAR T NEW 30 SERV MINUTES [facility] UNIVERSIT - 4 4 Y [facility] T EMERGENCY 81602 AVILA MUÑOZ DEPT 4 4 VISIT HIGH SEVERITY& THREAT FUN EMERGENCY 81869 [facility] DEPT 4 4 [facility] VISIT HIGH SEVERITY& THREAT FUN EMERGENCY 15530 SWINEY SWINEY 4 4 PAT PAT DEPARTMEN T VISIT HIGH/URGE NT SEVERITY
--- OUTSIDE RECORDS SUMMARY | 2017-07-08 20:53 | External Medical Summary Rpt ---
Demographics Preferred Language Maori Marital Status Unknown Spiritism Affiliation Unknown Race Unknown Ethnic Group Unknown Author Author CESAR Address Unknown Phone Immunization No patient found.
--- OUTSIDE RECORDS SUMMARY | 2017-07-08 20:53 | External Medical Summary Rpt ---
Demographics Preferred Language Divehi Marital Status Unknown Voodoo Affiliation Unknown Race Unknown Ethnic Group Unknown Author Author CESAR Address Unknown Phone Immunization No patient found.
--- OUTSIDE RECORDS SUMMARY | 2017-07-08 20:54 | External Medical Summary Rpt ---
[...] IS Plasma CONSIDERE D LEGALLYIN TOXICATED UNDER [facility] LAW. Comprehensive metabolic 2000 panel in [...]
--- OUTSIDE RECORDS SUMMARY | 2017-07-08 20:54 | External Medical Summary Rpt ---
[...] IS Plasma CONSIDERE D LEGALLYIN TOXICATED UNDER [facility] LAW. Comprehensive metabolic 2000 panel in [...]
== END 2017-06-29 10:50 ==
LOC: ER 19:43 → 2ND 22:10 → ER 22:10 → 2ND 23:10
PROVIDERS: Emergency Medicine
DX: T42.6X2A Poisoning by other antiepileptic and sedative-hypnotic drugs, intentional self-harm, initial encounter (principal); T42.4X2A Poisoning by benzodiazepines, intentional self-harm, initial encounter; F14.10 Cocaine abuse, uncomplicated; Z92.21 Personal history of antineoplastic chemotherapy; Y92.9 Unspecified place or not applicable; J45.909 Unspecified asthma, uncomplicated; F41.9 Anxiety disorder, unspecified; F32.9 Major depressive disorder, single episode, unspecified; K21.9 Gastro-esophageal reflux disease without esophagitis; F17.210 Nicotine dependence, cigarettes, uncomplicated; E03.9 Hypothyroidism, unspecified; Z85.89 Personal history of malignant neoplasm of other organs and systems; Z92.3 Personal history of irradiation; Z79.899 Other long term (current) drug therapy
CPT/HCPCS: G0378

== ENCOUNTER 2017-08-13 16:17 | Emergency (ER) | payer MEDICAID ==
[~2017-08-13] VITALS: Ht 165.1 cm; Wt 122.5 kg
[~2017-08-13 16:17] MED LIST changes: +TOPIRAMATE 25MG25 MG PO
--- NOTE | 2017-08-13 16:43 | Emergency Room Report ---
History of Present Illness Time Seen by [id number] Presenting Problem in Triage Pt arrived:Walked Presenting Problem:PT C/O ABDOMINAL PAIN X 3DAYS WITH BLEEDING FOR 2WEEKS. PT HAS HX OF CERVICAL CANCER AND HAD CHEMO AND RADIATION AND WAS TOLD SHE WOULD NEVER BLEED AGAIN. 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 N Clinical Suspician of Infection? N Mental Status: 1 - Regular (Normal Baseline) Sepsis Risk:Possible Sepsis Risk Have you (or family members/close friends) recently traveled outside the [place]? N If Yes, where/when: Have you had exposure to infectious disease within the past month? N TB? Other? Specify: Source patient, RN notes reviewed, family, RN/MD Exam Limitations no limitations Comment This is a 42-year-old lady arriving to the emergency room with vaginal bleeding and abdominal pain for the past one month. Patient stated that she had been diagnosed with cervical cancer and underwent radiation therapy at [facility] where she was under the care of Dr. Padimni Heard, approximately 6 months ago, with her being cancer free at this time. Patient advise her DIRECTOR PHONE oncologist has been on maternity leave and has been unable to follow-up with her for the past one month, reason why she has not seen anybody else in the practice either. Patient describes her episodes of vaginal bleeding as spotting approximately one month ago, every other day gradually getting more frequent and more intense. Patient advised that she has been soaking a MaxiPad with blood per day. ALLERGIES Coded Allergies: aspirin (04/22/17) ketorolac (From TORADOL) (04/22/17) morphine (04/22/17) Home Medications Reported Medications Omeprazole (Omeprazole 40MG) 40 MG PO DAILY Levothyroxine Sodium (Levothyroxine 0.025MG) 0.025 MG PO DAILY #30 History Medical History General CAD? No Angina: No RI: No Hypertension? No Hyperlipidemia? No CHF? No DVT? No PE? No COPD? No Asthma? Yes Anemia? No GERD? Yes Gastric ulcers? No GI Bleed? No Hernia? No Thyroid Problems? No Hypothyroidism? No CVA? No Seizures? No Diabetes? No Insulin Dependent: No Insulin Pump: No Home FSBS? No Renal Insuffiency? No End Stage Renal Disease? No UTI? Yes Stones? No BPH? No GB Disease: Yes Nephritic Syndrome? No Asplenia? No Hepatitis? No Sickle Cell Disease? No Arthritis? No Migraines? Yes Cataracts? No Glaucoma? No MRSA? No HIV? No TB? No Anxiety? Yes Depression? Yes Cancer? Yes Site: CERVICAL/ LYMPH NODES More? 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 Physical Exam Vital Signs Vital Signs Date Time Temp Pulse Resp B/P Pulse O2 O2 Flow FiO2 Ox Delivery Rate 08/13 2045 98.7 90 20 111/76 100 08/13 2042 98.7 90 20 111/76 100 08/13 2024 20 08/13 1755 98.7 75 20 116/83 97 08/13 1749 18 08/13 1621 98.8 95 20 96 General Appearance normal appearance, WD/WN, moderate distress Respiratory Status Yes: trachea midline, chest symmetrical, non tender chest. No: respiratory distress. Lung Sounds bilateral: normal breath sounds, lungs clear. Cardiovascular normal exam, regular rate/rhythm, no peripheral edema, no gallop, no JVD, no murmur, no rub, normal peripheral pulses Gastrointestinal soft, no organomegaly, tenderness (suprapubic area) Extremities non-tender, normal range of motion, normal inspection Nurse present during exam? No Pelvic normal external exam, no masses, tender adnexa (b/l), no evidence of any acute or occult vaginal bleeding., ? 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 Yes Jorge was queried for this patient? No Reason not queried - hospital network issues Risks/benefits of using a controlled substance for treatment were discussed w/pt by me Comment 1929-patient reevaluated, appears in no acute distress, medically stable. Advised patient results obtained, poor CT scan report, as well as need for her to follow-up with her PCP versus regular DIRECTOR PHONE versus DIRECTOR PHONE oncologist (another physician Dr. Padmini Heard's practice). Patient understands the paramount importance of her follow-up at this time, he should make every effort possible in order to see her physician as soon as possible. Results/Orders Laboratory Tests 08/13/17 1820: Sodium 137, Potassium 3.9, Chloride 103, Carbon Dioxide 26, BUN 12, Creatinine 0.8, Estimated Creat Clear 177, Estimated GFR (MDRD) 79, Glucose 130 H, Calcium 10.0, Total Bilirubin 0.3, AST 99 H, ALT 95 H, Alkaline Phosphatase 97, Total Protein 6.9, Albumin 3.2 L, Globulin 3.7 H, Albumin/Globulin Ratio 0.9 L, Amylase 33, Lipase 132, WBC 5.7, RBC 4.43, Hgb 12.5, Hct 38.8, MCV 87.7, RDW 15.0, Plt Count 165, MPV 7.5, Gran % 63.0, Gran # 3.6, Lymphocytes % 30.1, Monocytes % 4.1, Eosinophils % 2.4, Basophils % 0.4, Lymphocytes # 1.7, Monocytes # 0.2, Eosinophils # 0.1, Basophils # 0.0, PUBS MCHC 32.2, MCH 28.2 08/13/17 1700: Urine Color YELLOW, Urine Appearance CLEAR, Urine pH 6.0, Ur Specific Dudley 1.025, Urine Protein NEGATIVE, Urine Ketones NEGATIVE, Urine Blood 1+ H, Urine Nitrate NEGATIVE, Urine Bilirubin NEGATIVE, Urine Urobilinogen 0.2, Ur Leukocyte Esterase NEGATIVE, Urine RBC 10-20, Urine WBC OCC, Ur Squamous Epith Cells 3-5, Urine Bacteria TRACE, Urine Mucus 1+, Urine Glucose NEGATIVE Current Medication Orders Sig/Geovanny Start time Last Medication Dose Route Stop Time Status Admin Diphenhydramine HCl 0 .STK-MED ONE 08/13 2031 DC .ROUTE Diphenhydramine HCl 50 MG ONCE ONE 08/13 2030 DC 08/13 IV 08/13 Tramadol HCl 0 .STK-MED ONE 08/13 2021 DCr PO Multi-Ingredient GI 0 .STK-MED ONE 08/13 2017 DC Drug PO Pantoprazole Sodium 0 .STK-MED ONE 08/13 2017 DC IV Sodium Chloride 0 .STK-MED ONE 08/13 2017 DC IV Hydromorphone HCl 0 .STK-MED ONE 08/13 2016 DCr .ROUTE Ondansetron HCl 0 .STK-MED ONE 08/13 2016 DC .ROUTE Hydromorphone HCl 1 MG ONCE ONE 08/13 1945 DCr 08/13 IV 08/13 Ondansetron HCl 4 MG ONCE ONE 08/13 194 DC 08/13 IV 08/13 Tramadol HCl 1 [place] ONCE ONE 08/13 1945 DCr 08/13 PO 08/13 1946 202 Multi-Ingredient GI 60 ML ONCE ONE 08/13 1900 DC 08/13 Drug PO 08/13 1901 2022 Pantoprazole Sodium 40 MG ONCE ONE 08/13 1900 DC 08/13 IV 08/13 1901 2022 Sodium Chloride 10 ML ONCE ONE 08/13 1900 DC 08/13 IV 08/13 1901 2024 Iopamidol 75 ML ONCE ONE 08/13 1815 DC 08/13 IV 08/13 1816 1804 Sodium Chloride 10 ML PRN PRN 08/13 1815 DC 08/13 IV 08/13 1933 1804 Hydromorphone HCl 1 MG ONCE ONE 08/13 1745 DCr 08/13 IV 08/13 1746 1749 Ondansetron HCl 4 MG ONCE ONE 08/13 1745 DC 08/13 IV 08/13 1746 1749 Hydromorphone HCl 0 .STK-MED ONE 08/13 1741 DCr .ROUTE Ondansetron HCl 0 .STK-MED ONE 08/13 1740 DC .ROUTE Orders Procedure Date/time Status DIET-NOTHING BY MOUTH 08/[address] ABD/PELVIS REQ 08/13 1647 Complete URINALYSIS/COMPLETE 08/13 1629 Complete LIPASE 08/13 1629 Complete CBC WITH AUTO DIFF 08/13 1629 Complete CHEM 12 PROFILE 08/13 1629 Complete AMYLASE 08/13 1629 Complete XRAY/CT/US XRAY/CT/US CT abdomen, pelvis CT interpretation by discussed w/radiologist CT Results see radiologist's report Departure Departure Time of Disposition 1936 Disposition DC Home or Self Care(routine) Clinical Impression Primary Impression: Abdominal pain Qualifiers: Abdominal location: lower abdomen, unspecified Qualified Code: R10.30 - Lower abdominal pain, unspecified Secondary Impressions: Vaginal bleeding Condition STABLE Referrals PADMINI HEARD: Tomorrow-Call Office Patient Instructions DI for Abdominal Pain-Adult, DI for Vaginal Bleeding Additional Instructions Please take the pain medications as directed, follow-up with Dr. Padmini Heard as soon as possible. Discharge Counseling Counseled pt/family regarding diagnosis, test results, medications/RX, home care, follow up needs Comment Please take the pain medications as directed, follow-up with Dr. Padmini Heard as soon as possible. Prescriptions Current Visit Scripts Tramadol Hcl (Ultram 50MG) 50 MG PO QIDP PRN pain #10 TAB ED Critical Care Critical Care No at 0026
[2017-08-13 17:09] LABS: URINE BILIRUBIN - DIPSTICK NEGATIVE (NEG); URINE BLOOD 1+ (NEG)
--- OUTSIDE RECORDS SUMMARY | 2017-08-13 17:14 | External Medical Summary Rpt | CCD ---
Author Author , CESAR GUERRERO Address Unknown Phone Care Team Providers Care Food Service Manager Name Role Phone [employer] Unavailable Unavailable INC, [employer] STACY, STACY Unavailable Unavailable [facility] Unavailable Unavailable DEPARTMENT, [facility] BUBBA ROBOTIC MAINTENANCE TECHNICIAN, BUBBA Unavailable Unavailable ROBOTIC MAINTENANCE TECHNICIAN [facility], Unavailable Unavailable [facility] CASTILLO YASH, CASTILLO Unavailable Unavailable YASH [facility] Unavailable Unavailable [facility], [facility] Unavailable Unavailable [facility], [facility] INCO, NICO Unavailable Unavailable [facility], Unavailable Unavailable [facility] Unavailable Unavailable INC, [facility] Unavailable Unavailable HOSPITAL P, [facility], Unavailable Unavailable [facility] Un[facility]available IM[facility], [facility] Un[facility] Un[facility], [facility] Unavailable Unavailable EMS, [facility], Unavailable Unavailable PLL[facility], [facility] SWINEY PAT, SWINEY Unavailable Unavailable PAT [facility] Unavailable Unavailable HOSPITALS, [facility], Unavailable Unavailable [facility] Purpose Continuity of Care Document - 02-16-2003 through 2016 Problems Code Diagnosis DOS Provider Status R0602 SHORTNESS 06-27-2017 [facility] OF BREATH [facility]ICAL IM[facility] ASS T1491 SUICIDE 06-27-2017 [facility] ATTEMPT [facility] [id number] POISONING 06-27-2017 [facility] COCAINE PHYSICIANS INTENTIONAL GROUP SELF-HARM INIT ENC [id number] POISONING 06-27-2017 [facility] UNS PHYSICIANS NARCOTICS GROUP SELF-HARM INIT ENC [id number] POISONING 06-27-2017 [facility]ENZODIAZEP [facility]ANS ANDRES PLLC SELF-HARM INITIAL ENC E076A9N PSN OTH 06-27-2017 [facility] ANTIEPI PHYSICIANS SEDAT-HYPNO GROUP T RX SLF-HRM INIT ENC [id number] POISON OT 06-27-2017 [facility] ANTIDEPRESS PHYSICIANS ANTS GROUP SELF-HARM INITIAL ENC [id number] POISN UNS 06-27-2017 [place] [facility]ICAL SUBSTANCE IMAGING ASS UNDET INIT ENC [id number] POISN OTH 06-27-2017 [facility] BIO PHYSICIANS, SUBSTANCE PLL SLF-HRM INIT ENC R1084 GENERALIZED 06-23-2017 [facility] ABDOMINAL PHYSICIANS, PAIN PLLC R109 UNSPECIFIED 06-23-2017 [place] ABDOM[facility]AL [facility]ICAL PAIN IMAGING ASS R319 HEMATURIA 06-23-2017 [facility] UNSPECIFIED PHYSICIANS, PLLC C539 MALIGNANT 06-08-2017 [facility] NEOPLASM OF PHYSICIANS CERVIX GROUP UTERI UNSPECIFIED G2581 RESTLESS 06-08-2017 [facility] LEGS PHYSICIANS SYNDROME GROUP G4730 SLEEP APNEA 06-08-2017 [facility] PHYSICIANS UNSPECIFIED GROUP R51 HEADACHE 06-08-2017 [facility] K811 CHRONIC 04-22-2017 [facility] CHOLECYSTIT PHYSICIANS IS GROUP K819 CHOLECYSTIT 04-22-2017 COMMUNITY IS ANESTH OF UNSPECIFIED THE BLUE K828 OTHER 04-22-2017 [facility] SPECIFIED PHYSICIANS DISEASES OF GROUP GALLBLADDER M77968 ENCOUNTER 04-20-2017 [place] FOR [facility] PREPROCEDUR INC AL LABORATORY EXAM G249 DYSTONIA 04-15-2017 [facility] UNSPECIFIED PHYSICIANS, PLLC K8050 CALCULUS BD 04-15-2017 [facility] W/O PHYSICIANS, CHOLANGITIS PLLC /CHOLECYST W/O OBST R1010 UPPER 04-09-2017 [facility] PAIN INC UNSPECIFIED R1011 RIGHT UPPER 04-09-2017 [place] QUADRANT MEDICAL PAIN IMAGING ASS R531 WEAKNESS 03-12-2017 [facility] INC M545 LOW BACK 03-02-2017 [facility] PAIN [facility]OS[facility] INC E663 OVERWEIGHT 02-13-2017 [facility] PHYSICIANS GROUP G629 POLYNEUROPA 02-13-2017 [facility] THY PHYSICIANS UNSPECIFIED GROUP M9983 OTHER 02-13-2017 [facility] BIOMECHANIC PHYSICIANS AL LESIONS GROUP OF LUMBAR REGION M546 PAIN IN 02-10-2017 [facility] THORACIC PHYSICIANS, SPINE PLLC K219 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-22-2017 [facility] P WITHOUT ESOPHAGITIS M542 CERVICALGIA 01-22-2017 [place] [facility] N938 OTHER SPEC 01-22-2017 [facility] ABNORMAL PHYSICIANS, UTERINE & PLLC VAGINAL BLEEDING N939 ABNORMAL 01-22-2017 [place] UTERINE & MEDICAL VAGINAL IMAGING ASS BLEEDING UNSPECIFIED R55 SYNCOPE AND 01-22-2017 [place] COLLAPSE MEDICAL IMAGING ASS [id number] UNSPECIFIED 01-22-2017 [place] INJURY OF MEDICAL HEAD IMAGING ASS INITIAL ENCOUNTER I586NLE UNSPECIFIED 01-22-2017 [place] INJURY OF MEDICAL NECK IMAGING ASS INITIAL ENCOUNTER Z720 TOBACCO USE 01-22-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 P Z8541 PERSONAL 01-22-2017 [facility] HISTORY PHYSICIANS, MALIGNANT PLLC NEOPLASM CERVIX UTERI J91792 PAIN IN 01-16-2017 [place] RIGHT FOOT MEDICAL IMAGING ASS [id number] CONTUSION 01-16-2017 [facility] OF RIGHT PHYSICIANS, FOOT PLLC INITIAL ENCOUNTER M84585P UNSPECIFIED 01-16-2017 [employer] RIGHT FOOT S INC INITIAL ENCOUNTER G4762 SLEEP 01-14-2017 [facility] RELATED LEG PHYSICIANS CRAMPS GROUP M5127 OT 01-14-2017 [place] INTERVERTEB MEDICAL RAL DISC IMAGING ASS DISPLACEMEN T LS REGION N342 OTHER 01-08-2017 [facility] URETHRITIS PHYSICIANS, PLLC R1030 LOWER 01-08-2017 [place] ABDOMINAL MEDICAL PAIN IMAGING ASS UNSPECIFIED W76881 MIGRAINE 01-04-2017 [facility] W/O AURA PHYSICIANS, NOT INTRACT PLLC W/O STAT MIGRAIN D128 BENIGN 12-30-2016 [facility] NEOPLASM OF PHYSICIANS RECTUM GROUP K6289 OTHER 12-30-2016 COMMUNITY SPECIFIED ANESTH OF DISEASES OF THE BLUE ANUS AND RECTUM K648 OTHER 12-30-2016 [facility] HEMORRHOIDS PHYSICIANS GROUP K649 UNSPECIFIED 12-30-2016 COMMUNITY ANESTH OF HEMORRHOIDS THE BLUE K629 DISEASE OF 12-18-2016 [facility] ANUS AND PHYSICIANS RECTUM GROUP UNSPECIFIED E039 HYPOTHYROID 11-05-2016 [facility] ISM PHYSICIANS UNSPECIFIED GROUP Z0000 ENCOUNTER 10-15-2016 [facility] GEN ADULT PHYSICIANS MED EXAM GROUP W/O ABNORMAL FIND [id number] STRAIN 10-13-2016 [facility] MUSCLE PHYSICIANS, FASCIA & PLLC TENDON LOW BACK [facility]ITIAL G21273M [facility] 10-[facility]-2016 COMMUNITY COMP OTH ANESTH OF CARD VASC THE BLUE DEVC IMPL INIT ENC Z452 ENCOUNTER 10-01-2016 [facility] ADJUSTMENT& PHYSICIANS MGMT GROUP VASCULAR ACCESS DEVICE Z789 OTHER 09-29-2016 [facility] SPECIFIED PHYSICIANS HEALTH GROUP STATUS C569 MALIGNANT 09-05-2016 [place] NEOPLASM OF MEDICAL IMAGING ASS UNSPECIFIED OVARY C7989 SECONDARY 09-05-2016 [place] [facility]NANT [facility] NEOPLASM INC OTH SPECIFIED SITES H27659 MIGRAINE 08-20-2016 [facility] W/AURA NOT PHYSICIANS, INTRACT PLLC W/STATUS MIGRAINOSUS R05 COUGH 03-18-2016 PSYCHIATRIC P S85683 MIGRAINE 02-04-2016 [facility] UNS NOT PHYSICIANS, INTRACT W/O PLLC STATUS MIGRAINOSUS R079 CHEST PAIN 12-01-2015 [place] UNSPECIFIED MEDICAL IMAGING ASS R46618Q PAIN D/T 08-30-2015 [facility]IT[facility] IMPL & GRAFTS INITIAL W43520N OTH SPEC 08-30-2015 [facility] IMPL GFT INIT ENC R1012 LEFT UPPER 06-30-2015 BUBBA ROBOTIC MAINTENANCE TECHNICIAN QUADRANT PAIN R197 DIARRHEA 06-30-2015 BUBBA ROBOTIC MAINTENANCE TECHNICIAN UNSPECIFIED 1809 MALIGNANT 04-25-2015 [facility] NEOPLASM PHI CERVIX UTERI UNSPECIFIED SITE 58306 SOLITARY 04-11-2015 [place] PULMONARY MEDICAL NODULE IMAGING ASS V1041 PERSONAL 04-11-2015 [place] HISTORY MEDICAL MALIGNANT IMAGING ASS NEOPLASM CERVIX UTERI V711 OBSERVATION 04-11-2015 [place] FOR MEDICAL SUSPECTED IMAGING ASS MALIGNANT NEOPLASM 1749 MALIGNANT 02-28-2015 [place] NEOPLASM OF [facility] P UNSPECIFIED SITE 4660 ACUTE 01-24-2015 [place] BRONCHITIS [facility] P 1991 OTHER 01-16-2015 [facility] MALIGNANT PHYSICIANS NEOPLASM OF GROUP UNSPECIFIED SITE V5881 FITTING AND 01-16-2015 [place] ADJUSTMENT MEDICAL OF IMAGING ASS VASCULAR CATHETER 2331 CARCINOMA 01-12-2015 [place] IN SITU [facility] CERVIX [facility] P UTERI 03844 SHORTNESS 01-06-2015 [place] OF BREATH MEDICAL IMAGING ASS 16852 NAUSEA WITH 01-06-2015 [place] VOMITING [facility] P E9331 ANTINEOPLAS 01-06-2015 [place] TIC-IMMUNOS [facility] P ADVRSE EFF [place] USE V5811 ENCOUNTER 01-02-2015 [facility] ANTINEOPLAS TIC CHEMOTHERAP Y 6268 OTH D/O 12-18-2014 [facility] N&OTH ABN BLEED FE GNT TRACT 5718 OTHER 12-01-2014 [place] [facility] C LIVER DISEASE 5939 UNSPECIFIED 12-01-2014 [place] [facility] DISORDER SERV OF [facility] AND URETER 7856 ENLARGEMENT 12-01-2014 [facility] NODES V580 RADIOTHERAP 10-30-2014 [facility] 179 MALIGNANT 10-23-2014 [facility] NEOPLASM OF HOSPITAL UTERUS PART UNSPECIFIED 1800 MALIGNANT 10-19-2014 [facility] OF SERV ENDOCERVIX [facility]OUNDATION 1968 SEC&UNSPEC 10-18-2014 [facility] NEOPLASM NODES MULTIPLE SITES 2859 UNSPECIFIED 10-04-2014 [facility] 6238 OTHER 10-04-2014 [facility] SPECIFIED HOSPITAL NONINFLAMMA TORY DISORDER VAGINA 28203 ABDOMINAL 10-04-2014 [facility] PAIN, SERV UNSPECIFIED FOUNDATION SITE 16049 ABDOMINAL 10-04-2014 [facility] OTHER HOSPITAL SPECIFIED SITE V153 PERS HX 10-04-2014 [facility]RADIATION [facility] PRESENTING [facility] 7840 HEADACHE 09-20-2014 [facility] 1820 MALIGNANT 09-08-2014 [facility] NEOPLASM [facility] CORPUS UTERI EXCEPT ISTHMUS 6262 EXCESSIVE 09-08-2014 [facility] OR [facility] MENSTRUATIO N 1808 MALIGNANT 09-01-2014 [facility]OP[facility] SERV OTHER [facility] SPECIFIED SITES CERVIX 65075 ABD/PELVIC 08-30-2014 [facility] MASS/LUMP OTH SPEC SITE 47425 NONGONOCOCC 08-15-2014 [facility] DUE CHLAMYDTRAC HOMATIS 23553 MORBID 08-09-2014 [facility] H ANESTHESIA PSC 6269 UNS D/O 08-07-2014 [facility] N&OTH ABN BLEED FE GNT TRACT V7241 08-07-2014 [facility] OR TEST FOUNDATION NEGATIVE RESULT 4590 UNSPECIFIED 08-03-2014 [facility] HEMORRHAGE [facility] EMS 6259 UNSPEC 08-03-2014 [facility] W/FEMALE GENITAL ORGANS 1123 CANDIDIASIS 02-09-2014 [facility] PAT OF SKIN AND NAILS 48155 ANAL OR 02-09-2014 [facility] PAT RECTAL PAIN V3000 SINGLE 02-16-2003 [facility] PEDIA W/O C80.1 MALIGNANT (PRIMARY) NEOPLASM, UNSPECIFIED G43.909 MIGRAINE, UNSP, NOT INTRACTABLE , WITHOUT STATUS MIGRAINOSUS K80.50 CALCULUS OF BILE DUCT W/O CHOLANGITIS OR CHOLECYST W/O OBST K82.8 OTHER SPECIFIED DISEASES OF GALLBLADDER M54.6 PAIN IN THORACIC SPINE M54.9 DORSALGIA, UNSPECIFIED N34.2 OTHER URETHRITIS N93.8 OTHER SPECIFIED ABNORMAL UTERINE AND VAGINAL BLEEDING R05 COUGH R07.9 CHEST PAIN, UNSPECIFIED R10.9 UNSPECIFIED ABDOMINAL PAIN R11.2 NAUSEA WITH VOMITING, UNSPECIFIED R31.9 HEMATURIA, UNSPECIFIED R51 HEADACHE S39.012A STRAIN OF MUSCLE, FASCIA AND TENDON OF LOWER BACK, INIT S90.31XA CONTUSION OF RIGHT FOOT, INITIAL ENCOUNTER T14.91 SUICIDE ATTEMPT T14.91XA SUICIDE ATTEMPT, INITIAL ENCOUNTER T45.1X5A ADVERSE EFFECT OF ANTINEOPLAS TIC AND IMMUNOSUP DRUGS, INIT T50.901A POISONING BY UNSP DRUG/MEDS/B IOL SUBST, ACCIDENTAL, INIT Z53.21 PROC/TRTMT NOT CRD OUT D/T PT LV BEF SEEN BY [facility] CARE PROV Z72.0 TOBACCO USE Z85.41 PERSONAL HISTORY OF MALIGNANT NEOPLASM OF CERVIX UTERI Medications Na ND Rx Da Fi Fi Am Da Di Ph RX Ph St me C No te ll ll ou ys ag ar # ys at rm s nt no ma ic us Or Da si cy ia de te s n re d BU 68 10 11 60 30 00 HO Ac OH 00 -1 -1 .0 00 ME ti OP 10 8- 0- 00 06 TO ve IO 30 20 20 08 WN N 80 17 17 90 HC 0 23 PH L AR 75 MA CY MG OF TA BL CY ET NT HI AN A DI 68 10 11 60 30 00 HO Ac VA 38 -1 -1 .0 00 ME ti LP 20 8- 0- 00 06 TO ve RO 10 20 20 09 WN EX 60 17 [address] AR MA 12 CY 5 MG OF CA CY P NT SP HI RN AN K A PH 42 09 10 9. 3 00 HO Ac EN 93 -2 -2 00 00 ME ti AZ 70 6- 0- 0 06 TO ve OP 70 20 20 09 WN YR 21 17 17 50 ID 0 57 PH IN AR E MA 20 CY 0 MG OF TA CY B NT HI AN A GA 45 09 10 57 19 00 HO Ac BA 96 -2 -2 .0 00 ME ti PE 30 2- 0- 00 04 TO ve NT 55 20 20 02 WN IN 65 17 17 47 0 60 PH 30 AR 0 MA MG CY CA OF PS UL CY E NT HI AN A CL 00 09 10 38 19 00 HO Ac ON 22 -2 -2 .0 00 ME ti AZ 83 2- 0- 00 04 TO ve EP 00 20 20 02 WN AM 35 17 17 47 0 61 PH 0. AR 5 MA MG CY TA OF BL ET CY NT HI AN A LE 00 09 10 30 30 00 HO Ac VO 52 -2 -2 .0 00 ME ti TH 71 1- 0- 00 06 TO ve YR 34 20 20 09 WN OX 10 17 17 48 IN 1 14 PH E AR 25 MA CY MC G OF TA BL CY ET NT HI AN A CI 16 09 10 20 10 00 HO Ac OH 57 -2 -2 .0 00 ME ti OF 10 6- 0- 00 06 TO ve LO 41 20 20 09 WN XA 25 17 17 50 CI 0 56 PH N AR HC MA L CY 50 0 OF MG CY TA NT B HI AN A OM 68 09 10 60 30 00 HO Ac EP 46 -2 -2 .0 00 ME ti RA 20 1- 0- 00 06 TO ve ZO 39 20 20 08 WN LE 61 17 [address] AR MA 20 CY MG OF CA CY PS NT UL HI E AN A AC 00 09 10 60 [...] NT SP HI RN AN K A BU 69 09 10 60 30 [...] CY NT HI AN A BU 69 08 [...] #3 N 93 5- 8 32 5 OH 68 07 08 14 4 00 [...] UL HI E AN A LE 00 06 07 30 [...] UL CY E NT HI AN A AC 00 06 [...] ET NT HI AN A OM 68 05 06 60 30 00 HO Ac EP 46 -2 -2 .0 00 ME ti RA 20 5- 3- 00 06 TO ve ZO 39 20 20 08 WN LE 61 17 [address] AR MA 20 CY MG OF CA CY PS NT UL HI E AN A BU 00 05 06 40 14 00 HO Ac TA 59 -3 -2 .0 00 ME ti LB 13 1- 3- 00 04 TO ve -A 36 20 20 02 WN CE 90 17 17 30 TA [address] AR N- MA CA CY FF OF [...] CY NT HI AN A GA 45 05 06 [...] CY BL NT ET HI AN A NA 68 05 06 [...] 1 40 PH CE AR TA MA CT CY NO PH #3 EN 93 8 5- 32 5 ME 31 05 06 10 3 00 [...] 2 67 PH CE AR TA MA CT CY NO PH OF EN CY 5- [...] PS NT UL HI E AN A PH 51 04 05 12 [...] CY TA NT B HI AN A TR 59 04 05 1. 1 00 HO Ac IA 76 -1 -1 00 00 ME ti ZO 23 4- 2- 0 04 TO ve LA 71 20 20 02 WN M 80 17 17 22 0. 4 98 PH 25 AR MA MG CY TA OF BL ET CY NT HI AN A HY 00 04 05 [address] 60 -1 -1 .0 00 ME ti OC 33 7- 2- 00 02 TO ve OD 89 20 20 01 WN ON 03 17 17 34 -A 2 26 PH CE AR TA MA CT CY NO PH OF EN CY 5- NT 32 HI 5 AN A GA 45 04 05 14 [...] 2 24 PH CE AR TA MA CT CY NO PH OF EN CY 5- [...] 2 34 PH CE AR TA MA CT CY NO PH OF EN CY 5- NT 32 HI 5 AN A OH 68 01 02 12 [...] PS NT UL HI E AN A CY 00 01 02 15 [...] BL ET CY NT HI AN A HY 13 01 01 [address] 10 -0 -2 .0 00 IN ti OC 70 4- 7- 00 00 IC ve OD 01 20 20 41 ON 90 17 17 81 PH -A 5 73 AR CE MA TA CY CT NO PH EN 5- 32 5 OM [...] Order Detail nces retati t Range on Lipase measurement (07-15-2017 21:00) Lipase 07-15-2 = 160 73-393 complet measure 017 U/L ed ment 21:00 Comprehensive metabolic panel (07-15-2017 21:00) Protein 07-15-2 = 6.9 6.4-8.2 complet total 017 gm/dL ed ser/yamini 21:00 s ALT 07-15-2 = 52 12-78 complet (SGPT) 017 U/L ed ser/yamiin 21:00 s Serum 1018-2 = 28 15-37 complet or 017 U/L ed plasma 21:00 asparta te aminotr ansfera Serum 07-15-2 = 140 136-145 complet sodium 017 mmoL/L ed measure 21:00 ment Serum 10-2 = 3.7 3.5-5.1 complet potassi 017 mmoL/L ed um 21:00 measure ment Serum 07-15-2 = 215 74-106 complet or 017 mg/dL ed plasma 21:00 glucose measure ment (mas Serum 07-15-2 = 3.7 1.3-3.2 complet globuli 017 gm/dL ed n 21:00 measure ment (mass/v olume) Estimat 07-15-2 = 61 59- complet ed 017 ML/MIN ed glomeru 21:00 lar filtrat ion rate (GF Comment: REFERENCE RANGE: >60 ML/MIN/1.73 SQUARE METERS Comment: If this patient is -Beninese, then multiply the Comment: result by 1.210. Estimat 2 = 142 50-200 complet ion of 017 ML/MIN ed creatin 21:00 ine renal clearan ce Serum = 1.0 0.55-1. complet or 017 mg/dL 02 ed plasma 21:00 creatin ine measure ment ( Carbon = 25 21.0-32 complet dioxide 017 mmoL/L .0 ed 21:00 measure ment Serum = 107 98-107 complet or 017 mmoL/L ed plasma 21:00 chlorid e measure ment (mo Serum = 9.9 8.5-10. complet or 017 mg/dL 1 ed plasma 21:00 calcium measure ment (mas Serum = 12 7-18 complet or 017 mg/dL ed plasma 21:00 urea nitroge n measure men Serum = 0.2 0.2-1.0 complet or 017 mg/dL ed plasma 21:00 total bilirub in measure m Serum = 98 46-116 complet or 017 U/L ed plasma 21:00 alkalin e phospha tase cha Serum = 3.2 3.4-5.0 complet or 017 gm/dL ed plasma 21:00 albumin measure ment (mas Serum = 0.9 1.1-1.8 complet or 017 ed plasma 21:00 albumin /globul in mass ra Amylase ser/plas (07-15-2017 21:00) Amylase = 34 25-115 complet 017 U/L ed ser/yamini 21:00 s CBC w auto diff (07-15-2017 21:00) Blood = 6.3 4.8-10. complet leukocy 017 K/MM3 8 ed jennifer 21:00 count (number /volume ) Automat = 15.0 11.5-17 complet ed 017 % .5 ed erythro 21:00 cyte distrib ution width Red = 4.37 4.2-5.4 complet blood 017 M/mm3 ed cell 21:00 count Blood = 167 142-424 complet platele 017 K/mm3 ed t count 21:00 Automat = 8.0 7.4-10. complet ed 017 fl 4 ed blood 21:00 platele t mean volume cha Bollinger % = 4.0 % 1.7-9.3 complet 017 ed 21:00 Absolut = 0.3 0.1-1.0 complet e 017 K/mm3 ed monocyt 21:00 e count Automat = 87.3 82.2-97 complet ed 017 fl .8 ed erythro 21:00 cyte mean corpusc ular v Automat = 32.2 31.8-35 complet ed 017 g/dl .4 ed erythro 21:00 cyte mean corpusc ular h Mean = 28.1 27-31.2 complet corpusc 017 pg ed ular 21:00 hemoglo bin (MCH) determ Lymphoc = 34.0 10-50.0 complet yte 017 % ed count, 21:00 blood, automat ed Absolut = 2.2 0.7-4.5 complet e 017 K/mm3 ed lymphoc 21:00 yte count Blood = 12.3 12.2-16 complet hemoglo 017 g/dL .2 ed bin 21:00 measure ment (mass/v olum Blood = 38.1 37.0-47 complet hematoc 017 % .0 ed rit 21:00 (volume fractio n) Granulo = 58.3 37.0-80 complet cyte 017 % .0 ed percent 21:00 age Blood = 3.7 1.8-7.8 complet granulo 017 K/mm3 ed cytes 21:00 automat ed count (numb Automat = 3.2 % 0.1-12. complet ed 017 0 ed blood 21:00 eosinop hils/10 0 leukocy t Automat = 0.2 0.0-0.4 complet ed 017 K/mm3 ed blood 21:00 eosinop hil count Baso % 18-2 = 0.6 % 0.1-2.0 complet 017 ed 21:00 Automat 18-2 = 0.0 0-0.2 complet ed 017 K/MM3 ed blood 21:00 basophi l count (count/ vo Drugs identified in Urine by Screen method (06-28-2017 06:15) Ampheta NEGATIV <1000 complet mine 017 E ed [Presen 06:15 ce] in Urine by Screen method NEGATIV <50 complet oxy 017 E ed delta-9 06:15 tetrahy drocann abinol [Presen ce] in Unspeci fied specime n Procedures Procedure DOS Code Location Performer Comment RADIOLOGI 16407 [place] 7 MEDICAL EXAMINATI IMAGING [place] [address] [place] STACY ABDOMEN & 7 MEDICAL PELVIS IMAGING W/O ASS CONTRAST MATERIAL FINAL G9638 [facility] REPORTS 7 MEDICAL W/O DOC IMAGING 1/MORE ASS DOSE REDUCTION TECH FINAL G9551 [place] REGIS REPR ABD 7 MEDICAL IMAG STS IMAGING W/O ASS INCIDNT FND LES NTD: Encounters Encounter Start End Date Code Location Performer Type Date [facility] - 7 7 [facility] - 7 7 [facility] - 7 7 [facility] - 7 7 [facility] - 7 7 [facility] - 7 7 [facility] - 7 7 [facility] - 7 7 [facility] - 6 6 [facility] - 6 6 [facility] - [address] [facility] - 5 5 [facility] - [address] [facility] SH[facility] - 5 5 [facility] - 5 5 [facility] - 5 5 [facility] - 5 5 [facility] - 5 5 [facility] - 5 5 [facility] 5 5 [facility] - 5 5 [facility] 5 5 [facility] - 5 5 [facility] - 5 5 [facility] - 5 5 [facility] UN[facility] - 5 5 Y [facility] UNIVERSIT [facility] 5 5 Y [facility] UNIVERSIT - 5 5 Y [facility] UN[facility]ERS[facility] - 5 5 Y [facility] UN[facility]ERS[facility] - 5 5 Y [facility] - 5 5 Y [facility] - 5 5 Y [facility] - 5 5 Y [facility] - 5 5 Y [facility] - 5 5 Y [facility] - 5 5 Y [facility] - 5 5 Y [facility] - 5 5 Y [facility] - 5 5 Y [facility] - 5 5 Y [facility] - 5 5 Y [facility] - 5 5 Y [facility] - 5 5 Y [facility] - 5 5 Y [facility] - 4 4 Y [facility] - 4 4 Y [facility] - 4 4 Y [facility] - 4 4 Y [facility] - 4 4 Y [facility] - 4 4 Y [facility] - 4 4 Y [facility] - 4 4 Y [facility] - 4 4 Y [facility] - 4 4 Y [facility] - 4 4 Y [facility] - 4 4 Y [facility] UNIVERSIT - 4 4 Y [facility] UNIVERSIT - 4 4 Y [facility] UNIVERSIT - 4 4 Y [facility] UNIVERSIT [facility] 4 4 Y [facility] UN[facility]ERSIT - 4 4 Y [facility]
--- OUTSIDE RECORDS SUMMARY | 2017-08-13 17:14 | External Medical Summary Rpt | CCD ---
Author Author , CESAR GUERRERO Address Unknown Phone Care Team Providers Care [employer] Attendant Name Role Phone [employer] Unavailable Unavailable INC, [employer] STACY, STACY Unavailable Unavailable [facility] Unavailable Unavailable DEPARTMENT, [facility] [employer] SAFETY INSPECTOR, BUBBA Unavailable Unavailable [employer]ET[employer] INSPECT[employer] [facility], Unavailable Unavailable [facility] CASTILLO YASH, CASTILLO Unavailable Unavailable YASH [facility]PLAC[facility] BY [facility] Unavailable Unavailable [facility] Unavailable Unavailable THE [facility], [facility] NICO, NICO Unavailable Unavailable MICHELLE PHI, Unavailable Unavailable MICHELLE PHI [facility] Unavailable Unavailable INC, [facility] Unavailable Unavailable HOSPITAL P, [facility]PITAL P [facility] Unavailable Unavailable [facility] Un[facility]available [facility], [facility], [facility] Unavailable [facility]available EMS, [facility] Un[facility] Unavailable PLL[facility], [facility] SWINEY PAT, SWINEY Unavailable Unavailable PAT [facility] Unavailable Unavailable HOSPITALS, [facility], Unavailable Unavailable [facility] Purpose Continuity of Care Document - 02-16-2003 through 2016 Problems Code Diagnosis DOS Provider Status R0602 SHORTNESS 06-27-2017 [facility] T1491 SUICIDE 06-27-2017 [facility] ATTEMPT [facility] V381H1W POISONING 06-27-2017 [facility] COCAINE PHYSICIANS INTENTIONAL GROUP SELF-HARM INIT ENC [id number] POISONING 06-27-2017 [facility] UNS PHYSICIANS NARCOTICS GROUP SELF-HARM INIT ENC U585H1L POISONING 06-27-2017 [facility] BENZODIAZEP PHYSICIANS ANDRES PLLC SELF-HARM INITIAL ENC H635A5K PSN OTH 06-27-2017 [facility] ANTIEPI PHYSICIANS SEDAT-HYPNO GROUP T RX SLF-HRM INIT ENC [id number] POISON OT 06-27-2017 [facility] ANTIDEPRESS PHYSICIANS ANTS GROUP SELF-HARM INITIAL ENC W73690S POISN UNS 06-27-2017 [place] [facility] BIO MEDICAL SUBSTANCE IMAGING ASS UNDET INIT ENC [id number] POISN OTH 06-27-2017 [facility] BIO PHYSICIANS, SUBSTANCE PLL SLF-HRM INIT ENC R1084 GENERALIZED 06-23-2017 [facility] ABDOMINAL PHYSICIANS, PAIN PLLC R109 UNSPECIFIED 06-23-2017 [place] ABDOMINAL MEDICAL PAIN IMAGING ASS R319 HEMATURIA 06-23-2017 [facility] UNSPECIFIED PHYSICIANS, PLLC C539 MALIGNANT 06-08-2017 [facility] NEOPLASM OF PHYSICIANS CERVIX GROUP UTERI UNSPECIFIED G2581 RESTLESS 06-08-2017 [facility] LEGS PHYSICIANS SYNDROME GROUP G4730 SLEEP APNEA 06-08-2017 [facility] PHYS[facility]IANS UNSPECIFIED GROUP R51 HEADACHE 06-08-2017 [facility] K811 CHRONIC 04-22-2017 [facility] CHOLECYSTIT PHYSICIANS IS GROUP K819 CHOLECYSTIT 04-22-2017 COMMUNITY IS ANESTH OF UNSPECIFIED THE BLUE K828 OTHER 04-22-2017 [facility] SPECIFIED PHYSICIANS DISEASES OF GROUP GALLBLADDER Q93154 ENCOUNTER 04-20-2017 [facility] FOR [facility] PREPROCEDUR INC AL LABORATORY EXAM G249 DYSTONIA 04-15-2017 [facility] UNSPECIFIED PHYSICIANS, PLLC K8050 CALCULUS BD 04-15-2017 [facility] W/O PHYSICIANS, CHOLANGITIS PLLC /CHOLECYST W/O OBST R1010 UPPER 04-09-2017 [facility] PAIN INC UNSPECIFIED R1011 RIGHT UPPER 04-09-2017 [place] QUADRANT MEDICAL PAIN IMAGING ASS R531 WEAKNESS 03-12-2017 [facility] INC M545 LOW BACK 03-02-2017 [facility] PAIN [facility]OS[facility] INC E663 OVERWEIGHT 02-13-2017 [facility] G629 POLYNEUROPA 02-13-2017 [facility] THY PHYSICIANS UNSPECIFIED GROUP M9983 OTHER 02-13-2017 [facility] BIOMECHANIC PHYSICIANS AL LESIONS GROUP OF LUMBAR REGION M546 PAIN IN 02-10-2017 [facility] THORACIC PHYSICIANS, SPINE PLLC K219 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-22-2017 [facility] P WITHOUT ESOPHAGITIS M542 CERVICALGIA 01-22-2017 [place] [facility] N938 OTHER SPEC 01-22-2017 [facility] ABNORMAL PHYSICIANS, UTERINE & PLLC VAGINAL BLEEDING N939 ABNORMAL 01-22-2017 [place] UTERINE & MEDICAL VAGINAL IMAGING ASS BLEEDING UNSPECIFIED R55 SYNCOPE AND 01-22-2017 [place] COLLAPSE MEDICAL IMAGING ASS [id number] UNSPECIFIED 01-22-2017 [place] INJURY OF MEDICAL HEAD IMAGING ASS INITIAL ENCOUNTER R407XYD UNSPECIFIED 01-22-2017 [place] INJURY OF MEDICAL NECK IMAGING ASS INITIAL ENCOUNTER Z720 TOBACCO USE 01-22-2017 [facility] P Z8541 PERSONAL 01-22-2017 [facility] HISTORY PHYSICIANS, MALIGNANT PLLC NEOPLASM CERVIX UTERI K49593 PAIN IN 01-16-2017 [place] RIGHT FOOT MEDICAL IMAGING ASS [id number] CONTUSION 01-16-2017 [facility] OF RIGHT PHYSICIANS, FOOT PLLC INITIAL ENCOUNTER B50996S UNSPECIFIED 01-16-2017 [employer] RIGHT FOOT S INC INITIAL ENCOUNTER G4762 SLEEP 01-14-2017 [facility] RELATED LEG PHYSICIANS CRAMPS GROUP M5127 OT 01-14-2017 [place] INTERVERTEB MEDICAL RAL DISC IMAGING ASS DISPLACEMEN T LS REGION N342 OTHER 01-08-2017 [facility] URETHRITIS PHYSICIANS, PLLC R1030 LOWER 01-08-2017 [place] ABDOMINAL MEDICAL PAIN IMAGING ASS UNSPECIFIED Q27967 MIGRAINE 01-04-2017 [facility] W/O AURA PHYSICIANS, NOT INTRACT PLLC W/O STAT MIGRAIN D128 BENIGN 12-30-2016 [facility] NEOPLASM OF PHYSICIANS RECTUM GROUP K6289 OTHER 12-30-2016 COMMUNITY SPECIFIED ANESTH OF DISEASES OF THE BLUE ANUS AND RECTUM K648 OTHER 12-30-2016 [facility] HEMORRHOIDS PHYSICIANS GROUP K649 UNSPECIFIED 12-30-2016 COMMUNITY ANESTH OF HEMORRHOIDS THE BLUE K629 DISEASE OF 12-18-2016 [facility] ANUS AND PHYSICIANS RECTUM GROUP UNSPECIFIED E039 HYPOTHYROID 11-05-2016 [facility] ISM PHYSICIANS UNSPECIFIED GROUP Z0000 ENCOUNTER 10-15-2016 [facility] GEN ADULT PHYSICIANS MED EXAM GROUP W/O ABNORMAL FIND S66180X STRAIN 10-13-2016 [facility] MUSCLE PHYSICIANS, FASCIA & PLLC TENDON LOW BACK INITIAL H55187J [facility] 10-01-2016 COMMUNITY COMP OTH ANESTH OF CARD VASC THE BLUE DEVC IMPL INIT ENC Z452 ENCOUNTER 10-01-2016 [facility] ADJUSTMENT& PHYSICIANS MGMT GROUP VASCULAR ACCESS DEVICE Z789 OTHER 09-29-2016 [facility] SPECIFIED PHYSICIANS HEALTH GROUP STATUS C569 MALIGNANT 09-05-2016 [place] NEOPLASM OF MEDICAL IMAGING ASS UNSPECIFIED OVARY C7989 SECONDARY 09-05-2016 [facility] MALIGNANT [facility] NEOPLASM INC OTH SPECIFIED SITES L59978 MIGRAINE 08-20-2016 [facility] W/AURA NOT PHYSICIANS, INTRACT PLLC W/STATUS MIGRAINOSUS R05 COUGH 03-18-2016 [facility] P U79169 MIGRAINE 02-04-2016 [facility] UNS NOT PHYSICIANS, INTRACT W/O PLLC STATUS MIGRAINOSUS R079 CHEST PAIN 12-01-2015 [place] UNSPECIFIED MEDICAL IMAGING ASS T03218V PAIN D/T 08-30-2015 [facility]PITALS IMPL & GRAFTS INITIAL E73747V OTH SPEC 08-30-2015 [facility] IMPL GFT INIT ENC R1012 LEFT UPPER 06-30-2015 [facility] [employer] SAFETY INSPECTOR QUADRANT PAIN R197 DIARRHEA 06-30-2015 [facility] [employer] SAFETY INSPECTOR UNSPECIFIED 1809 MALIGNANT 04-25-2015 [facility] NEOPLASM PHI CERVIX UTERI UNSPECIFIED SITE 33013 SOLITARY 04-11-2015 [place] PULMONARY MEDICAL NODULE IMAGING ASS V1041 PERSONAL 04-11-2015 [place] HISTORY MEDICAL MALIGNANT IMAGING ASS NEOPLASM CERVIX UTERI V711 OBSERVATION 04-11-2015 [place] FOR MEDICAL SUSPECTED IMAGING ASS MALIGNANT NEOPLASM 1749 MALIGNANT 02-28-[address] [facility] [address] [facility] P UNSPECIFIED SITE 4660 ACUTE 01-24-2015 [facility] BRONCHITIS [facility] P 1991 OTHER 01-16-2015 [facility] MALIGNANT PHYSICIANS NEOPLASM OF GROUP UNSPECIFIED SITE V5881 FITTING AND 01-16-2015 [place] ADJUSTMENT MEDICAL OF IMAGING ASS VASCULAR CATHETER 2331 CARCINOMA 01-12-2015 [facility] IN SITU [facility] CERVIX [facility] P UTERI 71421 SHORTNESS 01-06-2015 [place] OF BREATH MEDICAL IMAGING ASS 94833 NAUSEA WITH 01-06-2015 [facility] VOMITING [facility] P E9331 ANTINEOPLAS 01-06-2015 [facility] TIC-IMMUNOS [facility] P ADVRSE EFF TX USE V5811 ENCOUNTER 01-02-2015 [facility] ANTINEOPLAS TIC CHEMOTHERAP Y 6268 OTH D/O 12-18-2014 [facility] N&OTH ABN BLEED FE GNT TRACT 5718 OTHER 12-01-2014 [place] [facility] C LIVER DISEASE 5939 UNSPECIFIED 12-01-2014 [place] [facility] DISORDER SERV OF [facility]OUND[facility] AND URETER 7856 ENLARGEMENT 12-01-2014 [facility] NODES V580 RADIOTHERAP 10-30-2014 [facility] 179 MALIGNANT 10-23-2014 [facility] NEOPLASM OF HOSPITAL UTERUS PART UNSPECIFIED 1800 MALIGNANT 10-19-2014 [place] [facility]LASM OF SERV ENDOCERVIX [facility]OUNDATION 1968 SEC&UNSPEC 10-18-2014 [facility] NEOPLASM NODES MULTIPLE SITES 2859 UNSPECIFIED 10-04-2014 [facility] 6238 OTHER 10-04-2014 [facility] SPECIFIED HOSPITAL NONINFLAMMA TORY DISORDER VAGINA 65127 ABDOMINAL 10-04-2014 [facility] PAIN, SERV UNSPECIFIED FOUNDATION SITE 97791 ABDOMINAL 10-04-2014 [facility] OTHER HOSPITAL SPECIFIED SITE V153 PERS HX 10-04-2014 [facility] PRESENTING [facility] 7840 HEADACHE 09-20-2014 [facility] 1820 MALIGNANT 09-08-2014 [facility] NEOPLASM [facility] CORPUS UTERI EXCEPT ISTHMUS 6262 EXCESSIVE 09-08-2014 [facility] OR [facility] MENSTRUATIO N 1808 MALIGNANT 09-01-2014 [facility] NEOPLASM SERV OTHER [facility] SPECIFIED SITES CERVIX 30816 ABD/PELVIC 08-30-2014 [facility] MASS/LUMP OTH SPEC SITE 48931 NONGONOCOCC 08-15-2014 [facility] URETHRITIS DEPARTMENT DUE CHLAMYDTRAC HOMATIS 59721 MORBID 08-09-2014 [facility] ANESTHESIA PSC 6269 UNS D/O 08-07-2014 [facility] N&OTH ABN BLEED FE GNT TRACT V7241 08-07-2014 [facility] EXAMINATION SERV OR TEST FOUNDATION NEGATIVE RESULT 4590 UNSPECIFIED 08-03-2014 [facility]RHAGE [facility] EMS 6259 UNSPEC 08-03-2014 [facility] W/FEMALE GENITAL ORGANS 1123 CANDIDIASIS 02-09-2014 [facility] PAT OF SKIN AND NAILS 34091 ANAL OR 02-09-2014 [facility] PAT RECTAL PAIN V3000 SINGLE 02-16-2003 [facility] PEDIA W/O C80.1 MALIGNANT (PRIMARY) NEOPLASM, [...] OUT D/T PT LV BEF SEEN BY [facility] CARE PROV Z72.0 TOBACCO USE Z85.41 [...] 10 11 60 30 00 HO Ac MI 00 [...] 09 10 20 10 00 HO Ac MI 57 -2 -2 .0 00 ME ti [...] 17 17 30 TA 5 04 PH [place] AR N- MA [place] CY FF OF [...] 1 40 PH CE AR TA MA [place] CY NO PH #3 EN [phone] [...] 2 67 PH CE AR TA [place] CY NO PH OF EN CY 5- [...] 2 26 PH CE AR TA [place] CY NO PH OF EN CY 5- [...] 2 24 PH CE AR TA [place] NO PH OF EN CY 5- [...] 2 34 PH CE AR TA [place] CY NO PH OF EN CY 5- NT 32 HI 5 AN A MI 68 01 02 12 [...] 5 73 AR CE MA TA CY [place] NO PH EN 5- 32 5 OM [...] 52 12-78 complet (SGPT) 017 U/L ed ser/yamini 21:00 s Serum 1018-2 = 28 15-37 [...] SQUARE METERS Comment: If this patient is -Austrian, then multiply the Comment: result by 1.210. [...] blood 21:00 platele t mean volume cha Mcduffie % = 4.0 % 1.7-9.3 complet 017 [...] Procedure DOS Code Location Performer Comment RADIOLOGI 47110 [place] NICO C 7 MEDICAL EXAMINATI IMAGING [place] [address] [place] STACY ABDOMEN & 7 MEDICAL PELVIS IMAGING W/O ASS CONTRAST MATERIAL FINAL G9638 [facility] REPORTS 7 MEDICAL W/O DOC IMAGING 1/MORE ASS DOSE REDUCTION TECH FINAL G9551 [place] REGIS REPR ABD 7 MEDICAL IMAG STS IMAGING W/O ASS INCIDNT FND LES NTD: Encounters Encounter Start End Date Code Location Performer Type Date [facility] - 7 7 [facility] - 7 7 [facility] 7 [facility] - [facility] - 7 7 [facility] - 7 7 [facility] - 7 7 [facility] - 7 7 [facility] - 7 7 [facility] - 7 7 [facility] - 7 7 [facility] - 7 7 [facility] - 7 7 [facility] - 6 6 [facility] - 6 6 [facility] - 5 5 [facility] - 5 5 [facility]IVERS[facility] - 5 5 [facility] - 5 5 [facility] - 5 5 [facility] - 5 5 [facility] - 5 5 [facility] - 5 5 [facility] - 5 5 [facility] - 5 5 [facility] - 5 5 [facility] - 5 5 [facility] - 5 5 [facility] - 5 5 [facility] - 5 5 [facility] - 5 5 [facility] - 5 5 [facility] - 5 5 Y [facility] - 5 5 Y [facility] - 5 5 Y [facility] - 5 5 Y [facility] - 5 5 Y [facility] - 5 5 Y [facility] - 5 5 Y [facility] - 5 5 Y [facility] - 5 5 Y [facility] - 5 5 Y [facility] - 5 5 Y [facility] - 5 5 Y [facility] - 5 5 Y [facility] - 5 5 Y [facility] - 5 5 Y [facility] - 5 5 Y [facility] - 5 5 Y [facility] - 5 5 Y [facility] - 5 5 Y [facility] - 4 4 Y [facility] - 4 4 Y [facility] - 4 4 Y [facility] - 4 4 Y [facility] - 4 4 Y [facility] - 4 4 Y [facility] - 4 4 Y [facility] - 4 4 Y [facility] - 4 4 Y [facility] - 4 4 Y [facility] - 4 4 Y [facility] - 4 4 Y [facility] - 4 4 Y [facility] - 4 4 Y [facility] - 4 4 Y [facility] - 4 4 Y [facility] - 4 4 Y [facility]
--- OUTSIDE RECORDS SUMMARY | 2017-08-13 17:18 | External Medical Summary Rpt | CCD ---
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 [facility], Unavailable Unavailable [facility] CASTILLO YASH, CASTILOL Unavailable Unavailable YASH [facility] Unavailable Unavailable ANESTHESIA P[facility], [facility] Unavailable Unavailable THE BL[facility], [facility] NICO, NICO Unavailable Unavailable MICHELLE PHI, Unavailable Unavailable MICHELLE PHI [facility] Unavailable Unavailable INC, [facility] Unavailable Unavailable HOSPITAL P, [facility], Unavailable Unavailable [facility] [place] [facility] Unavailable Unavailable [facility], [facility] Un[facility] Un[facility], [facility] Unavailable Unavailable EMS, [facility], Unavailable Unavailable PLL[facility], [facility] SWINEY PAT, SWINEY Unavailable Unavailable PAT [facility] Unavailable Unavailable HOSPITALS, [facility], Unavailable Unavailable [facility] Purpose Continuity of Care Document - 02-16-2003 through 2016 Problems Code Diagnosis DOS Provider Status R0602 SHORTNESS 06-27-2017 [facility] T1491 SUICIDE 06-27-2017 [facility] ATTEMPT [facility] PLLC [id number] POISONING 06-27-2017 [facility] COCAINE PHYSICIANS INTENTIONAL GROUP SELF-HARM INIT ENC [id number] POISONING 06-27-2017 [facility] UNS PHYSICIANS NARCOTICS GROUP SELF-HARM INIT ENC [id number] POISONING 06-27-2017 [facility] BENZODIAZEP PHYSICIANS, ANDRES PLLC SELF-HARM INITIAL ENC [id number] PSN OT 06-27-2017 [facility] ANTIEPI PHYSICIANS SEDAT-HYPNO GROUP T RX SLF-HRM INIT ENC [id number] POISON OT 06-27-2017 [facility] ANTIDEPRESS PHYSICIANS ANTS GROUP SELF-HARM INITIAL ENC [id number] POISN UNS 06-27-2017 [place] [facility] SUBSTANCE IMAGING ASS UNDET INIT ENC [id number] POISN OTH 06-27-2017 [facility] RX [facility] BIO PHYSICIANS, SUBSTANCE PLL SLF-HRM INIT ENC R1084 GENERALIZED 06-23-2017 [facility] ABDOMINAL PHYSICIANS, PAIN PLLC R109 UNSPECIFIED 06-23-2017 [place] [facility] PAIN [facility] R319 HEMATURIA 06-23-2017 [facility] UNSPECIFIED PHYSICIANS, PLLC C539 MALIGNANT 06-08-2017 [facility] NEOPLASM OF PHYSICIANS CERVIX GROUP UTERI UNSPECIFIED G2581 RESTLESS 06-08-2017 [facility] LEGS PHYSICIANS SYNDROME GROUP G4730 SLEEP APNEA 06-08-2017 [facility] PHYSICIANS UNSPECIFIED GROUP R51 HEADACHE 06-08-2017 [facility] K811 CHRONIC 04-22-2017 [facility] CHOLECYSTIT PHYSICIANS IS GROUP K819 CHOLECYSTIT 04-22-2017 COMMUNITY IS ANESTH OF UNSPECIFIED THE BLUE K828 OTHER 04-22-2017 [facility] SPECIFIED PHYSICIANS DISEASES OF GROUP GALLBLADDER V79022 ENCOUNTER 04-20-2017 [facility] PREPROCEDUR INC AL LABORATORY EXAM G249 DYSTONIA 04-15-2017 [facility] UNSPECIFIED PHYSICIANS, PLLC K8050 CALCULUS BD 04-15-2017 [facility] W/O PHYSICIANS, CHOLANGITIS PLLC /CHOLECYST W/O OBST R1010 UPPER 04-09-2017 [facility] PAIN INC UNSPECIFIED R1011 RIGHT UPPER 04-09-2017 [place] [facility] R531 WEAKNESS 03-12-2017 [facility] M545 LOW BACK 03-02-2017 [facility] INC E663 OVERWEIGHT 02-13-2017 [facility] G629 POLYNEUROPA 02-13-2017 [facility] THY PHYSICIANS UNSPECIFIED GROUP M9983 OTHER 02-13-2017 [facility] BIOMECHANIC PHYSICIANS AL LESIONS GROUP OF LUMBAR REGION M546 PAIN IN 02-10-2017 [facility] THORACIC PHYSICIANS, SPINE PLLC K219 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-22-2017 [facility] WITHOUT ESOPHAGITIS M542 CERVICALGIA 01-22-2017 [facility] N938 OTHER SPEC 01-22-2017 [facility] ABNORMAL PHYSICIANS, UTERINE & PLLC VAGINAL BLEEDING N939 ABNORMAL 01-22-2017 [place] UTERINE & MEDICAL VAGINAL IMAGING ASS BLEEDING UNSPECIFIED R55 SYNCOPE AND 01-22-2017 [place] COLLAPSE [facility] IM[facility] ASS U7798OW UNSPECIFIED 01-22-2017 [place] INJURY OF MEDICAL HEAD IMAGING ASS INITIAL ENCOUNTER [id number] UNSPECIFIED 01-22-2017 [place] INJUR[facility] OF MEDICAL NECK IMAGING ASS INITIAL ENCOUNTER Z720 TOBACCO USE 01-22-2017 [facility] P Z8541 PERSONAL 01-22-2017 [facility] HISTORY PHYSICIANS, MALIGNANT PLLC NEOPLASM CERVIX UTERI J78109 PAIN IN 01-16-2017 [place] RIGHT FOOT MEDICAL IMAGING ASS V0900WW CONTUSION 01-16-2017 [facility] OF RIGHT PHYSICIANS, FOOT PLLC INITIAL ENCOUNTER [id number] UNSPECIFIED 01-16-2017 [employer] RIGHT FOOT S INC INITIAL ENCOUNTER G4762 SLEEP 01-14-2017 [facility] RELATED LEG PHYSICIANS CRAMPS GROUP M5127 OT 01-14-2017 [place] INTERVERTEB MEDICAL RAL DISC IMAGING ASS DISPLACEMEN T LS REGION N342 OTHER 01-08-2017 [facility] URETHRITIS PHYSICIANS, PLLC R1030 LOWER 01-08-2017 [place] ABDOMINAL MEDICAL PAIN IMAGING ASS UNSPECIFIED Q16553 MIGRAINE 01-04-2017 [facility] W/O AURA PHYSICIANS, NOT INTRACT PLLC W/O STAT MIGRAIN D128 BENIGN 12-30-2016 [facility] NEOPLASM OF PHYSICIANS RECTUM GROUP K6289 OTHER 12-30-2016 COMMUNITY SPECIFIED ANESTH OF DISEASES OF THE BLUE ANUS AND RECTUM K648 OTHER 12-30-2016 [facility] HEMORRHOIDS PHYSICIANS GROUP K649 UNSPECIFIED 12-30-2016 COMMUNITY ANESTH OF HEMORRHOIDS THE BLUE K629 DISEASE OF 12-18-2016 [facility] ANUS AND PHYSICIANS RECTUM GROUP UNSPECIFIED E039 HYPOTHYROID 11-05-2016 [facility] ISM PHYSICIANS UNSPECIFIED GROUP Z0000 ENCOUNTER 10-15-2016 [facility] GEN ADULT PHYSICIANS MED EXAM GROUP W/O ABNORMAL FIND [id number] STRAIN 10-13-2016 [facility] MUSCLE PHYSICIANS, FASCIA & PLLC TENDON LOW BACK [facility]19579I [facility] 10-01-2016 COMMUNITY COMP OT ANESTH OF CARD VASC THE BLUE DEVC IMPL INIT ENC Z452 ENCOUNTER 10-01-2016 [facility] ADJUSTMENT& PHYSICIANS MGMT GROUP VASCULAR ACCESS DEVICE Z789 OTHER 09-29-2016 [facility] SPECIFIED PHYSICIANS HEALTH GROUP STATUS C569 MALIGNANT 09-05-2016 [place] NEOPLASM OF MEDICAL IMAGING ASS UNSPECIFIED OVARY C7989 SECONDARY 09-05-2016 [facility] MALIGNANT [facility] NEOPLASM INC OTH SPECIFIED SITES I43135 MIGRAINE 08-20-2016 [facility] W/AURA NOT PHYSICIANS, INTRACT PLLC W/STATUS MIGRAINOSUS R05 COUGH 03-18-2016 [facility] P S63463 MIGRAINE 02-04-2016 [facility] UNS NOT PHYSICIANS, INTRACT W/O PLLC STATUS MIGRAINOSUS R079 CHEST PAIN 12-01-2015 [place] UNSPECIFIED MEDICAL IMAGING ASS O13900S PAIN D/T 08-30-2015 [facility] IMPL & GRAFTS INITIAL M88549Q OTH SPEC 08-30-2015 [facility] IMPL GFT INIT ENC R1012 LEFT UPPER 06-30-2015 [facility] BLOW MOLD 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 [facility]ANT PAIN R197 DIARRHEA 06-30-2015 [facility] BLOW MOLD MACHINE OPERATOR UNSPECIFIED 1809 MALIGNANT 04-25-2015 [facility] NEOPLASM PHI CERVIX UTERI UNSPECIFIED SITE 86411 SOLITARY 04-11-2015 [place] PULMONARY MEDICAL NODULE IMAGING ASS V1041 PERSONAL 04-11-2015 [place] HISTORY MEDICAL MALIGNANT IMAGING ASS NEOPLASM CERVIX UTERI V711 OBSERVATION 04-11-2015 [place] FOR MEDICAL SUSPECTED IMAGING ASS MALIGNANT NEOPLASM 1749 MALIGNANT 02-28-2015 [facility] NEOPLASM OF [facility] BREAST [facility] P UNSPECIFIED SITE 4660 ACUTE 01-24-2015 [facility] BRONCHITIS [facility] P 1991 OTHER 01-16-2015 [facility] MALIGNANT PHYSICIANS NEOPLASM OF GROUP UNSPECIFIED SITE V5881 FITTING AND 01-16-2015 [place] ADJUSTMENT MEDICAL OF IMAGING ASS VASCULAR CATHETER 2331 CARCINOMA 01-12-2015 [facility] IN SITU [facility] CERVIX [facility] P UTERI 47120 SHORTNESS 01-06-2015 [place] OF BREATH MEDICAL IMAGING ASS 58688 NAUSEA WITH 01-06-2015 [facility] VOMITING [facility] P E9331 ANTINEOPLAS 01-06-2015 [facility] TIC-IMMUNOS [facility] P ADVRSE EFF TX USE V5811 ENCOUNTER 01-02-2015 [facility] ANTINEOPLAS TIC CHEMOTHERAP Y 6268 OTH D/O 12-18-2014 [facility] N&OTH ABN BLEED FE GNT TRACT 5718 OTHER 12-01-2014 [place] [facility] NON[facility]I [facility]OUND[facility] C LIVER DISEASE 5939 UNSPECIFIED 12-01-2014 [place] [facility] DISORDER [facility] OF [facility] AND URETER 7856 ENLARGEMENT 12-01-2014 [facility] NODES V580 RADIOTHERAP 10-30-2014 [facility] 179 MALIGNANT 10-23-2014 [facility] NEOPLASM OF HOSPITAL UTERUS PART UNSPECIFIED 1800 MALIGNANT 10-19-2014 [place] [facility] NEOPLASM OF SERV ENDOCERVIX FOUNDATION 1968 SEC&UNSPEC 10-18-2014 [facility] NEOPLASM NODES MULTIPLE SITES 2859 UNSPECIFIED 10-04-2014 [facility] 6238 OTHER 10-04-2014 [facility] HOSPITAL NONINFLAMMA TORY DISORDER VAGINA 96679 ABDOMINAL 10-04-2014 [facility] UNSPECIFIED FOUNDATION SITE 93416 ABDOMINAL 10-04-2014 [facility] OTHER HOSPITAL SPECIFIED SITE V153 PERS HX 10-04-2014 [facility] IRRADIATION [facility] PRESENTING [facility] 7840 HEADACHE 09-20-2014 [facility] 1820 MALIGNANT 09-08-2014 [facility] NEOPLASM [facility] CORPUS UTERI EXCEPT ISTHMUS 6262 EXCESSIVE 09-08-2014 [facility] OR [facility] MENSTRUATIO N 1808 MALIGNANT 09-01-2014 [place] [facility] NEOPLAS[facility] SERV OTHER FOUNDATION SPECIFIED SITES CERVIX 02322 ABD/PELVIC 08-30-2014 [facility] MASS/LUMP OTH SPEC SITE 43040 NONGONOCOCC 08-15-2014 [facility] URETHRITIS DEPARTMENT DUE CHLAMYDTRAC HOMATIS 06409 MORBID 08-09-2014 [facility] H ANESTHESIA PSC 6269 UNS D/O 08-07-[address] [facility] N&OTH ABN BLEED FE GNT TRACT V7241 08-07-2014 [facility] OR TEST FOUNDATION NEGATIVE RESULT 4590 UNSPECIFIED 08-03-2014 [facility]ORRHAGE [facility] EMS 6259 UNSPEC 08-03-2014 [facility] [place] [facility] W/FEMALE GENITAL ORGANS 1123 CANDIDIASIS 02-09-2014 [facility] PAT OF SKIN AND NAILS 45562 ANAL OR 02-09-2014 [facility] PAT RECTAL PAIN V3000 SINGLE 02-16-2003 [facility] PEDIA W/O Medications Na ND Rx Da Fi Fi Am Da Di Ph RX Ph St me C No te ll ll ou ys ag ar # ys at rm s nt no ma ic us Or Da si cy ia de te s n re d BU 68 10 11 60 30 00 HO Ac NC 00 -1 -1 .0 00 ME ti [...] NT SP HI RN AN K A LE 00 09 10 30 30 00 HO Ac VO 52 -2 -2 .0 00 ME ti TH 71 1- 0- 00 06 TO ve YR 34 20 20 09 WN OX 10 17 17 48 IN 1 14 PH E AR 25 MA CY MC G OF TA BL CY ET NT HI AN A GA 45 09 [...] BL ET CY NT HI AN A CI 16 09 10 20 10 00 HO Ac NC 57 -2 -2 .0 00 ME ti OF 10 6- 0- 00 06 TO ve LO 41 20 20 09 WN XA 25 17 17 50 CI 0 56 PH N AR HC MA L CY 50 0 OF MG CY TA NT B HI AN A PH 42 09 10 9. 3 00 HO Ac EN 93 -2 -2 00 00 ME ti AZ 70 6- 0- 0 06 TO ve OP 70 20 20 09 WN YR 21 17 17 50 ID 0 57 PH IN AR E MA 20 CY 0 MG OF TA CY B NT HI AN A OM 68 09 10 60 30 00 HO Ac EP 46 -2 -2 .0 00 ME ti RA 20 1- 0- 00 06 TO ve ZO 39 20 20 08 WN LE 61 17 [address] AR MA 20 CY MG OF CA CY PS NT UL HI E AN A BU 69 09 10 60 30 00 HO Ac NC 09 -1 -0 .0 00 ME ti [...] NT SP HI RN AN K A LE 00 08 09 30 30 [...] CY NT HI AN A GA 45 08 09 90 [...] UL HI E AN A AC 00 08 09 60 [...] 08 09 60 30 00 HO Ac NC 09 -1 -0 .0 00 ME ti OP 70 1- 8- 00 06 TO ve IO 87 20 20 09 WN N 80 17 17 05 HC 3 76 PH L AR SR MA CY 15 0 OF MG CY TA NT BL HI ET AN A OM 68 07 08 60 30 00 HO Ac EP 46 -2 -1 .0 00 ME ti RA 20 5- 8- 00 06 TO ve ZO 39 20 20 08 WN LE 61 17 [address] AR MA 20 CY MG OF CA CY PS NT UL HI E AN A NC 68 07 08 14 4 00 HO [...] #3 N 93 5- 8 32 5 LE 00 07 08 30 30 00 [...] 07 08 60 30 00 HO Ac NC 09 -1 -0 .0 00 ME ti [...] 06 07 60 30 00 HO Ac NC 00 -1 -1 .0 00 ME ti OP 10 5- 4- 06 TO ve IO 30 20 20 [...] UL CY E NT HI AN A BU 00 05 06 40 14 00 HO Ac TA 59 -3 -2 .0 00 ME ti LB 13 1- 3- 00 04 TO ve -A 36 20 20 02 WN CE 90 17 17 30 TA 5 04 PH NE AR N- MA CA CY FF OF 50 -3 CY 25 NT -4 HI 0 AN A OM 68 05 06 60 [...] 20 9- 6- 00 06 TO ve NC 05 20 20 08 WN AM 35 17 17 73 0 85 PH HB AR R MA 20 CY MG OF TA CY BL NT ET HI AN A NA 68 05 06 14 7 00 HO Ac NC 46 -1 -0 .0 00 ME ti [...] ET NT HI AN A HY 00 05 06 [address] 40 -1 -0 .0 00 TE ti OC 60 6- 9- 00 01 ve OD 12 20 20 18 AI ON 30 17 17 42 D -A 1 40 PH CE AR TA MA NE CY NO PH #3 EN 93 8 5- 32 5 HY 00 04 05 [address] 60 -2 -2 .0 00 ME ti OC 33 7- 6- 00 02 TO ve OD 89 20 20 01 WN ON 17 17 34 -A 2 67 PH CE AR TA MA NE CY NO PH OF EN CY 5- [...] 2 26 PH CE AR TA MA NE CY NO PH OF EN CY 5- NT 32 HI 5 AN A CI 16 04 05 14 7 00 HO Ac NC 57 -1 -1 .0 00 ME ti [...] 2 24 PH CE AR TA MA NE CY NO PH OF EN CY 5- [...] 2 34 PH CE AR TA MA NE CY NO PH OF EN CY 5- NT 32 HI 5 AN A CY 00 01 02 15 5 00 HO Ac CL 60 -1 -1 .0 00 ME ti OB 33 7- 0- 00 06 TO ve EN 07 20 20 07 WN ZA 93 17 17 96 NC 2 42 PH IN AR E MA 10 CY MG OF TA CY BL NT ET HI AN A NC 59 01 02 10 5 00 HO Ac ED 74 -1 -1 .0 00 ME ti NI 60 7- 0- 00 06 TO ve SO 17 20 20 07 WN NE 50 17 17 96 9 43 PH 20 AR MA MG CY TA OF BL ET CY NT HI AN A NC 68 01 02 12 30 00 HO [...] 5 73 AR CE MA TA CY NE NO PH EN 5- 32 5 OM [...] Procedure DOS Code Location Performer Comment RADIOLOGI 32896 [place] N[place] C 7 MEDICAL EXAMINATI IMAGING [place] [address] [place] STACY ABDOMEN & 7 MEDICAL PELVIS IMAGING W/O ASS CONTRAST MATERIAL FINAL G9638 [facility] STACY REPORTS 7 MEDICAL W/O DOC IMAGING 1/MORE ASS DOSE REDUCTION TECH FINAL G9551 [facility] STACY REPR ABD 7 MEDICAL IMAG STS IMAGING W/O ASS INCIDNT FND LES NTD: Encounters Encounter Start End Date Code Location Performer Type Date [facility] - 7 7 [facility] - 7 7 [facility] - 7 7 [facility] - 7 7 [facility] - 6 6 [facility] - 6 6 [facility] - 5 5 [facility] - 5 5 [facility] - 5 5 Y [facility] - 5 5 [facility] - 5 5 [facility] - 5 5 [facility] - 5 5 [facility] - 5 5 [facility] - 5 5 [facility] - 5 5 [facility] - 5 5 [facility] - 5 5 Y [facility] - 5 5 [facility] - 5 5 [facility] - 5 5 [facility] - 5 5 [facility] - 5 5 [facility] - 5 5 Y [facility] - 5 5 Y [facility] - 5 5 Y [facility] - 5 5 Y [facility] - 5 5 Y [facility] - 5 5 Y [facility] - 5 5 Y [facility] - 5 5 Y [facility] - 5 5 Y [facility] - 5 5 Y [facility] - 5 5 Y [facility] - 5 5 Y [facility] - 5 5 Y [facility] - 5 5 Y [facility] - 5 5 Y [facility] - 5 5 Y [facility] - 5 5 Y [facility] - 5 5 Y [facility] - 5 5 Y [facility] - 4 4 Y [facility] - 4 4 Y [facility] - 4 4 Y [facility] - 4 4 Y [facility] - 4 4 Y [facility] - 4 4 Y [facility] - 4 4 Y [facility] - 4 4 Y [facility] - 4 4 Y [facility] - 4 4 Y [facility] - 4 4 Y [facility] - 4 4 Y [facility] - 4 4 Y [facility] - 4 4 Y [facility] - 4 4 Y [facility] - 4 4 Y [facility] - 4 4 Y [facility]
--- OUTSIDE RECORDS SUMMARY | 2017-08-13 17:18 | External Medical Summary Rpt | CCD ---
Author Author , CESAR GUERRERO Address Unknown Phone [email or web address] Care Team Providers Care Yard Clerk Name Role Phone [employer] Unavailable Unavailable INC, [employer] STACY, STACY Unavailable Unavailable [facility] Unavailable Unavailable DEPARTMENT, [facility] AUTOMATION CONTROLS SPECIALIST, BUBBA Unavailable Unavailable AUTOMATION CONTROLS SPECIALIST [facility], Unavailable Unavailable [facility] CASTILLO YASH, CASTILLO Unavailable Unavailable YASH [facility] Unavailable Unavailable [facility], [facility] Unavailable Unavailable THE BL[facility], [facility] NICO, NICO Unavailable Unavailable MICHELLE PHI, Unavailable Unavailable MICHELLE PHI [facility] Unavailable Unavailable INC, [facility] Unavailable Unavailable HOSPITAL P, [facility], Unavailable Unavailable [facility] Un[facility]available [facility], [facility] Un[facility], [facility] Unavailable Unavailable EMS, [facility] Un[facility] Unavailable PLL[facility], [facility] SWINEY PAT, SWINEY [facility]available Unavailable PAT [facility] Unavailable Unavailable HOSPITALS, [facility], Unavailable Unavailable [facility] Purpose Continuity of Care Document - 02-16-2003 through 2016 Problems Code Diagnosis DOS Provider Status R0602 SHORTNESS 06-27-2017 [facility] T1491 SUICIDE 06-27-2017 [facility]C [id number] POISONING 06-27-2017 [facility] COCAINE PHYSICIANS INTENTIONAL GROUP SELF-HARM INIT ENC [id number] POISONING 06-27-2017 [facility] UNS PHYSICIANS NARCOTICS GROUP SELF-HARM INIT ENC F123V5B POISONING 06-27-2017 [facility] BENZODIAZEP PHYSICIANS, ANDRES PLLC SELF-HARM INITIAL ENC G376X9C PSN OT 06-27-2017 [facility] ANTIEPI PHYSICIANS SEDAT-HYPNO GROUP T RX SLF-HRM INIT ENC [id number] POISON OT 06-27-2017 [facility] ANTIDEPRESS PHYSICIANS ANTS GROUP SELF-HARM INITIAL ENC C09693P POISN UNS 06-27-2017 [facility] SUBSTANCE IMAGING ASS UNDET INIT ENC C76940T POISN OTH 06-27-2017 [facility] BIO PHYSICIANS, SUBSTANCE PLL SLF-HRM INIT ENC R1084 GENERALIZED 06-23-2017 [facility] ABDOMINAL PHYSICIANS, PAIN PLLC R109 UNSPECIFIED 06-23-2017 [facility] R319 HEMATURIA 06-23-2017 [facility] UNSPECIFIED PHYSICIANS, PLLC C539 MALIGNANT 06-08-2017 [facility] NEOPLASM OF PHYSICIANS CERVIX GROUP UTERI UNSPECIFIED G2581 RESTLESS 06-08-2017 [facility] LEGS PHYSICIANS SYNDROME GROUP G4730 SLEEP APNEA 06-08-2017 [facility] PHYSICIANS UNSPECIFIED GROUP R51 HEADACHE 06-08-2017 [facility] PHYSIC[facility]ANS GROUP K811 CHRONIC 04-22-2017 [facility] CHOLECYSTIT PHYSICIANS IS GROUP K819 CHOLECYSTIT 04-22-2017 [facility] IS ANESTH OF UNSPECIFIED THE BLUE K828 OTHER 04-22-2017 [facility] SPECIFIED PHYSICIANS DISEASES OF GROUP GALLBLADDER G22658 ENCOUNTER 04-20-2017 [facility] PREPROCEDUR INC AL LABORATORY EXAM G249 DYSTONIA 04-15-2017 [facility] UNSPECIFIED PH[facility]ICIANS, PLLC K8050 CALCULUS BD 04-15-2017 [facility] W/O PHYSICIANS, CHOLANGITIS PLLC /CHOLECYST W/O OBST R1010 UPPER 04-09-2017 [facility] PAIN INC UNSPECIFIED R1011 RIGHT UPPER 04-09-2017 [facility] R531 WEAKNESS 03-12-2017 [facility] M545 LOW BACK 03-02-2017 [facility] INC E663 OVERWEIGHT 02-13-2017 [facility] PHYSICIANS GROUP G629 POLYNEUROPA 02-13-2017 [facility] THY PHYSICIANS UNSPECIFIED GROUP M9983 OTHER 02-13-2017 [facility] BIOMECHANIC PHYSICIANS AL LESIONS GROUP OF LUMBAR REGION M546 PAIN IN 02-10-2017 [facility] THORACIC PHYSICIANS, SPINE PLLC K219 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-22-2017 [facility]FLUX [facility] WITHOUT ESOPHAGITIS M542 CERVICALGIA 01-22-2017 [facility] N938 OTHER SPEC 01-22-2017 [facility] ABNORMAL PHYSICIANS, UTERINE & PLLC VAGINAL BLEEDING N939 ABNORMAL 01-22-2017 [facility] UTER[facility]ICAL VAGINAL IMAGING ASS BLEEDING UNSPECIFIED R55 SYNCOPE AND 01-22-2017 [facility] COLLAPSE [facility] P1206YW UNSPECIFIED 01-22-2017 [facility] INJURY OF MEDICAL HEAD IMAGING ASS INITIAL ENCOUNTER J309WTI UNSPECIFIED 01-22-2017 [facility] INJ[facility] OF MEDICAL NECK IMAGING ASS INITIAL ENCOUNTER Z720 TOBACCO USE 01-22-2017 [facility] P Z8541 PERSONAL 01-22-2017 [facility] HISTORY PHYSICIANS, MALIGNANT PLLC NEOPLASM CERVIX UTERI F23786 PAIN IN 01-16-2017 [facility] RIGHT FOOT [facility]ICAL [facility]ING ASS Z2628XM CONTUSION 01-16-2017 [facility] OF RIGHT PHYSICIANS, FOOT PLLC INITIAL ENCOUNTER M59178C UNSPECIFIED 01-16-2017 [employer] [employer] RIGHT FOOT S INC INITIAL ENCOUNTER G4762 SLEEP 01-14-2017 [facility] RELATED LEG PHYSICIANS CRAMPS GROUP M5127 OT 01-14-2017 [place] INTERVERTEB MEDICAL RAL DISC IMAGING ASS DISPLACEMEN T LS REGION N342 OTHER 01-08-2017 [facility] URETHRITIS PHYSICIANS, PLLC R1030 LOWER 01-08-2017 [facility] ABDOMINAL [facility] PAIN IMAGING ASS UNSPECIFIED W94631 MIGRAINE 01-04-2017 [facility] W/O AURA PHYSICIANS, NOT INTRACT PLLC W/O STAT MIGRAIN D128 BENIGN 12-30-2016 [facility] NEOPLASM OF PHYSICIANS RECTUM GROUP K6289 OTHER 12-30-2016 [facility] SPECIFIED ANESTH OF DISEASES OF THE BLUE ANUS AND RECTUM K648 OTHER 12-30-2016 [facility] HEMORRHOIDS PHYSICIANS GROUP K649 UNSPECIFIED 12-30-2016 [facility] ANESTH OF HEMORRHOIDS THE BLUE K629 DISEASE OF 12-18-2016 [facility] ANUS AND PHYSICIANS RECTUM GROUP UNSPECIFIED E039 HYPOTHYROID 11-05-2016 [facility] ISM PHYSICIANS UNSPECIFIED GROUP Z0000 ENCOUNTER 10-15-2016 [facility] GEN ADULT PHYSICIANS MED EXAM GROUP W/O ABNORMAL FIND [id number] STRAIN 10-13-2016 [facility] MUSCLE PHYSICIANS, FASCIA & PLLC TENDON LOW BACK INITIAL H99478A [facility]2016 COMM[facility] COMP OT ANESTH OF CARD VASC THE BLUE DEVC IMPL INIT ENC Z452 ENCOUNTER 10-01-2016 [facility] ADJUSTMENT& PHYSICIANS MGMT GROUP VASCULAR ACCESS DEVICE Z789 OTHER 09-29-2016 [facility] SPECIFIED PHYSICIANS HEALTH GROUP STATUS C569 MALIGNANT 09-05-2016 [place] NEOPLASM OF MEDICAL IMAGING ASS UNSPECIFIED OVARY C7989 SECONDARY 09-05-2016 [facility]NT [facility] NEOPLASM INC OTH SPECIFIED SITES V28582 MIGRAINE 08-20-2016 [facility] W/AURA NOT PHYSICIANS, INTRACT PLLC W/STATUS MIGRAINOSUS R05 COUGH 03-18-2016 [facility] P Y57271 MIGRAINE 02-04-2016 [facility] UNS NOT PHYSICIANS, INTRACT W/O PLLC STATUS MIGRAINOSUS R079 CHEST PAIN 12-01-2015 [place] UNSPECIFIED [facility]ICAL IMAGING ASS Z06850I PAIN D/T 08-30-2015 [facility] IMPL & GRAFTS INITIAL C57575U OTH SPEC 08-30-2015 [facility] IMPL GFT INIT ENC R1012 LEFT UPPER 06-30-2015 [facility] SPECIAL[facility] QUADRANT PAIN R197 DIARRHEA 06-30-2015 [facility] SPECIALIST UNSPECIFIED 1809 MALIGNANT 04-25-2015 [facility] NEOPLASM PHI CERVIX UTERI UNSPECIFIED SITE 47673 SOLITARY 04-11-2015 [place] PULMONARY MEDICAL NODULE IMAGING ASS V1041 PERSONAL 04-11-2015 [place] HISTORY MEDICAL MALIGNANT IMAGING ASS NEOPLASM CERVIX UTERI V711 OBSERVATION 04-11-2015 [place] FOR MEDICAL SUSPECTED IMAGING ASS MALIGNANT NEOPLASM 1749 MALIGNANT 02-28-2015 [facility]OPLASM [facility] P UNSPECIFIED SITE 4660 ACUTE 01-24-2015 [facility]IS [facility] P 1991 OTHER 01-16-2015 [facility] MALIGNANT PHYSICIANS NEOPLASM OF GROUP UNSPECIFIED SITE V5881 FITTING AND 01-16-2015 [place] ADJUSTMENT MEDICAL OF IMAGING ASS VASCULAR CATHETER 2331 CARCINOMA 01-12-2015 [facility] IN SITU [facility] P UTERI 40216 SHORTNESS 01-06-2015 [place] OF BREATH MEDICAL IMAGING ASS 49432 NAUSEA WITH 01-06-2015 [facility] VOMITING [facility] P E9331 ANTINEOPLAS 01-06-2015 [facility] P ADVRSE EFF TX USE V5811 ENCOUNTER 01-02-2015 [facility] ANTINEOPLAS TIC CHEMOTHERAP Y 6268 OTH D/O 12-18-2014 [facility]&OTH ABN BLEED FE GNT TRACT 5718 OTHER 12-01-2014 [place] [facility] NON[facility]I FOUNDATION C LIVER DISEASE 5939 UNSPECIFIED 12-01-2014 [place] [facility] DISORDER SERV OF KID[facility]OUND[facility] AND URETER 7856 ENLARGEMENT 12-01-2014 [facility] NODES V580 RADIOTHERAP 10-30-[address] [facility] 179 MALIGNANT 10-23-2014 [facility] NEOPLASM OF HOSPITAL UTERUS PART UNSPECIFIED 1800 MALIGNANT 10-19-2014 [place] [facility] NEOPLASM OF SERV ENDOCERVIX FOUNDATION 1968 SEC&UNSPEC 10-18-2014 [facility] NEOPLASM NODES MULTIPLE SITES 2859 UNSPECIFIED 10-04-2014 [facility] 6238 OTHER 10-04-2014 [facility] NONINFLAMMA TORY DISORDER VAGINA 10891 ABDOMINAL 10-04-2014 [place] [facility] PAIN, SERV UNSPECIFIED FOUNDATION SITE 18648 ABDOMINAL 10-04-2014 [facility] OTHER HOSPITAL SPECIFIED SITE V153 PERS HX 10-04-2014 [facility] PRESENTING [facility] 7840 HEADACHE 09-20-2014 [facility] 1820 MALIGNANT 09-08-2014 [facility] NEOPLASM [facility] CORPUS UTERI EXCEPT ISTHMUS 6262 EXCESSIVE 09-08-2014 [facility] OR [facility] MENSTRUATIO N 1808 MALIGNANT 09-01-2014 [place] [facility] NEOPLASM SERV OTHER FOUNDATION SPECIFIED SITES CERVIX 95525 ABD/PELVIC 08-30-2014 [facility] MASS/LUMP OTH SPEC SITE 48315 NONGONOCOCC 08-15-2014 [facility] URETHRITIS DEPARTMENT DUE CHLAMYDTRAC HOMATIS 36617 MORBID 08-09-2014 [facility] ANESTHESIA PSC 6269 UNS D/O 08-07-2014 [facility] N&OTH ABN BLEED FE GNT TRACT V7241 08-07-2014 [place] [facility] EXAMINATION SERV OR TEST FOUNDATION NEGATIVE RESULT 4590 UNSPECIFIED 08-03-2014 [facility] 6259 UNSPEC 08-03-2014 [facility] [place] [facility] W/FEMALE GENITAL ORGANS 1123 CANDIDIASIS 02-09-2014 [facility] PAT OF SKIN AND NAILS 28224 ANAL OR 02-09-2014 [facility] PAT RECTAL PAIN V3000 SINGLE 02-16-2003 [facility] PEDIA W/O Medications Na ND Rx Da Fi Fi Am Da Di Ph RX Ph St me C No te ll ll ou ys ag ar # ys at rm s nt no ma ic us Or Da si cy ia de te s n re d BU 68 10 11 60 30 00 HO Ac NJ 00 [...] 09 10 20 10 00 HO Ac NJ 57 -2 -2 .0 00 ME ti [...] PS NT UL HI E AN A NJ 68 07 08 14 [...] 17 17 30 TA 5 04 PH UT AR N- MA CA CY FF OF [...] 1 40 PH CE AR TA MA UT CY NO PH #3 EN 93 8 5- 32 5 HY 00 04 05 [address] 60 -2 -2 .0 00 ME ti OC 33 7- 6- 00 02 TO ve OD 89 20 20 01 WN ON 17 17 34 -A 2 67 PH CE AR TA MA UT CY NO PH OF EN CY 5- [...] 2 26 PH CE AR TA MA UT CY NO PH OF EN CY 5- [...] 2 24 PH CE AR TA MA UT CY NO PH OF EN CY 5- [...] 2 34 PH CE AR TA MA UT CY NO PH OF EN CY 5- [...] 5 73 AR CE MA TA CY UT NO PH EN 5- 32 5 OM [...] Procedure DOS Code Location Performer Comment RADIOLOGI 12770 [place] C 7 MEDICAL EXAMINATI IMAGING [place] [address] [place] STACY ABDOMEN & 7 MEDICAL PELVIS IMAGING W/O ASS CONTRAST MATERIAL FINAL G9638 MIC[facility] STACY REPORTS 7 MEDICAL W/O DOC IMAGING 1/MORE ASS DOSE REDUCTION TECH FINAL G9551 [facility] STACY REPR ABD 7 MEDICAL IMAG STS IMAGING W/O ASS INCIDNT FND LES NTD: Encounters Encounter Start End Date Code Location [facility] Date [facility] 7 7 [facility] - 7 7 [facility] - [facility] - [facility] - [facility] - [facility] - [facility] - 7 7 [facility] - 7 [facility] - [facility] - 7 [facility] - 7 [facility] - 6 6 [facility] - 6 6 [facility] - 5 5 Y [facility] - 5 5 [facility] - 5 5 Y [facility] - 5 5 [facility] - 5 5 [facility] - 5 5 [facility] - 5 5 [facility] - 5 5 [facility] 5 5 [facility] - 5 5 [facility] - 5 5 [facility] - 5 5 Y [facility] - 5 5 [facility] 5 5 [facility] - 5 5 [facility] - 5 5 [facility] - 5 5 [facility] - 5 5 Y [facility] - 5 5 Y [facility] - 5 5 Y [facility] - 5 5 Y [facility] - 5 5 Y [facility] - 5 5 Y [facility] - 5 5 Y [facility] - 5 5 Y [facility] - 5 5 Y [facility] - 5 5 Y [facility] - 5 5 Y [facility] - 5 5 Y [facility] - 5 5 Y [facility] - 5 5 Y [facility] - 5 5 Y [facility] - 5 5 Y [facility] - 5 5 Y [facility] - 5 5 Y [facility] - 5 5 Y [facility] - 4 4 Y [facility] - 4 4 Y [facility] - 4 4 Y [facility] - 4 4 Y [facility] - 4 4 Y [facility] - 4 4 Y [facility] - 4 4 Y [facility] - 4 4 Y [facility] - 4 4 Y [facility] - 4 4 Y [facility] - 4 4 Y [facility] - 4 4 Y [facility] - 4 4 Y [facility] - 4 4 Y [facility] - 4 4 Y [facility] - 4 4 Y [facility] - 4 4 Y [facility]
--- OUTSIDE RECORDS SUMMARY | 2017-08-13 17:19 | External Medical Summary Rpt | CCD ---
Demographics Preferred Language Irish Marital Status Unknown Mu-Ism Affiliation Unknown Race Unknown Ethnic Group Unknown Author Author , CESAR GUERRERO Address Unknown Phone Immunization No patient found.
--- OUTSIDE RECORDS SUMMARY | 2017-08-13 17:19 | External Medical Summary Rpt | CCD ---
Demographics Preferred Language Danish Marital Status Unknown Hindu Affiliation Unknown Race Unknown Ethnic Group Unknown Author Author , CESAR GUERRERO Address Unknown Phone Immunization No patient found.
--- OUTSIDE RECORDS SUMMARY | 2017-08-13 17:20 | External Medical Summary Rpt ---
Author Author [facility] Meek, [employer] Organization [employer] Address Unknown Phone Unavailable Results Amylase [Enzymatic activity/volume] in Serum or Plasma Observa Value Referen Units Interpr Notes Date tion ce etation Range Amylase 25 - 115 U/L Normal No Jul 15 [Enzymati informati 2017 9:00 c on in PM activity/ source volume] data in Serum or Plasma Comprehensive metabolic 2000 panel in Serum or Plasma Observa Value Referen Units Interpr Notes Date tion ce etation Range Albumin/G 1.1 - 1.8 No Low No Jul 15 lobulin informati informati 2017 9:00 [Mass on in on in PM ratio] in source source Serum or data data Plasma Albumin 3.4 - 5.0 gm/dL Low No Jul 15 [Mass/vol informati 2017 9:00 ume] in on in PM Serum or source Plasma data Alkaline 46 - 116 U/L Normal No Jul 15 phosphata informati 2017 9:00 se on in PM [Enzymati source c data activity/ volume] in Serum or Plasma Bilirubin 0.2 - 1.0 mg/dL Normal No Jul 15 .total informati 2017 9:00 [Mass/vol on in PM ume] in source Serum or data Plasma Urea 7 - 18 mg/dL Normal No Jul 15 nitrogen informati 2017 9:00 [Mass/vol on in PM ume] in source Serum or data Plasma Calcium 8.5 - mg/dL Normal No Jul 15 [Mass/vol 10.1 informati 2017 9:00 ume] in on in PM Serum or source Plasma data Chloride 98 - 107 mmoL/L Normal No Jul 15 [Moles/vo informati 2017 9:00 lume] in on in PM Serum or source Plasma data Carbon 21.0 - mmoL/L Normal No Jul 15 dioxide, 32.0 informati 2017 9:00 total on in PM [Moles/vo source lume] in data Serum or Plasma Creatinin 0.55 - mg/dL Normal No Jun 18 e 1.02 informati 2017 9:00 [Mass/vol on in PM ume] in source Serum or data Plasma Creatinin 50 - 200 ML/MIN Normal No Jul 15 e renal informati 2016 9:00 clearance on in PM source predicted data by Cockcroft -Gault formula Estimated 59- ML/MIN No REFERENCE Jul 15 informati RANGE: 2017 9:00 glomerula on in >60 PM r source ML/MIN/1. filtratio data 73 SQUARE n rate METERSIf (GF this patient is -A merican, then multiply theresult by 1.210. Globulin 1.3 - 3.2 gm/dL High No Jul 15 [Mass/vol informati 2016 9:00 ume] in on in PM Serum source data Glucose 74 - 106 mg/dL High No Jul 15 [Mass/vol informati 2016 9:00 ume] in on in PM Serum or source Plasma data Potassium 3.5 - 5.1 mmoL/L Normal No Jul 15 inform2016 9:00 [Moles/vo on in PM lume] in source Serum or data Plasma Sodium 136 - 145 mmoL/L Normal No Jul 15 [Moles/vo informati 2016 9:00 lume] in on in PM Serum or source Plasma data Aspartate 15 - 37 U/L Normal No Jul 15 informati 2016 9:00 aminotran on in PM sferase source [Enzymati data c activity/ volume] in Serum or Plasma Alanine 12 - 78 U/L Normal No Jul 15 aminotran informati 2016 9:00 sferase on in PM [Enzymati source c data activity/ volume] in Serum or Plasma Protein 6.4 - 8.2 gm/dL Normal No Jul 15 [Mass/vol informati 2016 9:00 ume] in on in PM Serum or source Plasma data Lipase [Enzymatic activity/volume] in Serum or Plasma Observa Value Referen Units Interpr Notes Date tion ce etation Range Lipase 73 - 393 U/L Normal No Jul 15 [Enzymati informati 2016 9:00 c on in PM activity/ source volume] data in Serum or Plasma CBC W Auto Differential panel in Blood Observa Value Referen Units Interpr Notes Date tion ce etation Range Basophils 0 - 0.2 K/MM3 Normal No Jul 15 informati 2016 9:00 [#/volume on in PM ] in source Blood by data Automated count Basophils 0.1 - 2.0 % Normal No Jul 15 informati 2016 9:00 leukocyte on in PM s in source Blood by data Automated count Eosinophi 0.0 - 0.4 K/mm3 Normal No Jul 15 ls informati 2016 9:00 [#/volume on in PM ] in source Blood by data Automated count Eosinophi 0.1 - % Normal No Jul 15 ls/100 12.0 informati 2016 9:00 leukocyte on in PM s in source Blood by data Automated count Granulocy 1.8 - 7.8 K/mm3 Normal No Jul 15 jennifer informati 2016 9:00 [#/volume on in PM ] in source Blood by data Automated count Granulocy 37.0 - % Normal No Jul 15 jennifer/100 80.0 informati 2016 9:00 leukocyte on in PM s in source Blood by data Automated count Hematocri 37.0 - % Normal No Jul 15 t [Volume 47.0 informati 2016 9:00 on in PM Fraction] source of Blood data Hemoglobi 12.2 - g/dL Normal No Jul 15 n 16.2 informati 2016 9:00 [Mass/vol on in PM ume] in source Blood data Lymphocyt 0.7 - 4.5 K/mm3 Normal No Jul 15 es informati 2016 9:00 [#/volume on in PM ] in source Unspecifi data ed specimen by Automated count Lymphocyt 10 - 50.0 % Normal No Jul 15 es informati 2016 9:00 [#/volume on in PM ] in source Unspecifi data ed specimen by Automated count Erythrocy 27 - 31.2 pg Normal No Jul 15 te mean informati 2016 9:00 corpuscul on in PM ar source hemoglobi data n [Entitic mass] Erythrocy 31.8 - g/dl Normal No Jul 15 te mean 35.4 informati 2016 9:00 corpuscul on in PM ar source hemoglobi data n concentra tion [Mass/vol ume] by Automated count Erythrocy 82.2 - fl Normal No Jul 15 te mean 97.8 informati 2016 9:00 corpuscul on in PM ar volume source [Entitic data volume] by Automated count Monocytes 0.1 - 1.0 K/mm3 Normal No Jul 15 informati 2016 9:00 [#/volume on in PM ] in source Blood by data Automated count Monocytes 1.7 - 9.3 % Normal No Jul 15 informati 2016 9:00 leukocyte on in PM s in source Blood by data Automated count Platelet 7.4 - fl Normal No Jun 18 mean 10.4 informati 2016 9:00 volume on in PM [Entitic source volume] data in Blood by Automated count Platelets 142 - 424 K/mm3 Normal No Jun 18 informati 2016 9:00 [#/volume on in PM ] in source Blood data Erythrocy 4.2 - 5.4 M/mm3 Normal No Jun 18 jennifer informati 2016 9:00 [#/volume on in PM ] in source Amniotic data fluid Erythrocy 11.5 - % Normal No Jun 18 te 17.5 informati 2016 9:00 distribut on in PM ion width source [Entitic data volume] by Automated count Leukocyte 4.8 - K/MM3 Normal No Jun 18 s 10.8 informati 2016 9:00 [#/volume on in PM ] in source [...] gm/dL High No Oct 2 [Mass/vol informati 2017 6:30 ume] in on in AM Serum source data Glucose 74 - 106 mg/dL Normal No Oct 2 [Mass/vol informati 2016 6:30 ume] in on in AM Serum or source Plasma data Potassium 3.5 - 5.1 mmoL/L Normal No Oct 2 informati 2017 6:30 [Moles/vo on in AM lume] in source Serum or data Plasma Sodium 136 - 145 mmoL/L Normal No Oct 2 [Moles/vo informati 2017 6:30 lume] in on in AM Serum or source Plasma data Aspartate 15 - 37 U/L No No Oct 2 informati informati 2017 6:30 aminotran on in on in AM sferase source source [Enzymati data data c activity/ volume] in Serum or Plasma Alanine 12 - 78 U/L No No Oct 2 aminotran informati informati 2016 6:30 sferase on in on in AM [...] Valproate 50 - 100 mcg/mL Low No Oct 2 informati 2017 6:30 [Mass/vol on in AM ume] in source Serum or data Plasma CBC W Auto Differential panel in Blood Observa Value Referen Units Interpr Notes Date tion ce etation Range Basophils 0 - 0.2 K/MM3 Normal No Jun 2 informati 2016 6:30 [#/volume on in AM ] in source Blood by data Automated count Basophils 0.1 - 2.0 % Normal No Oct 2 /100 informati 2017 6:30 leukocyte on in AM s in source Blood by data Automated count Eosinophi 0.0 - 0.4 K/mm3 Normal No Jun 2 ls informati 2016 6:30 [#/volume on [...] Normal No Jun 2 jennifer/100 80.0 informati 2016 6:30 leukocyte on in AM s in source Blood by data Automated count Hematocri 37.0 - % Low No Jun 29 t [Volume 47.0 informati 2016 6:30 on in AM Fraction] source of Blood data Hemoglobi 12.2 - g/dL Normal No Jun 29 n 16.2 informati 2016 6:30 [Mass/vol on in AM ume] in source Blood data Lymphocyt 0.7 - 4.5 K/mm3 Normal No Jun 2 es informati 2016 [...] 0.1 - 1.0 K/mm3 Normal No Jun 29 inform2016 6:30 [#/volume on in AM ] in source Blood by data Automated count Monocytes 1.7 - 9.3 % Normal No Oct 2 /100 informati 2016 6:30 leukocyte on [...] 5.4 M/mm3 Low No Jun 29 jennifer informati 2016 6:30 [#/volume on in [...] 50 - 100 mcg/mL Normal No Jun 282016 [Mass/vol on in 10:59 AM ume] in [...] No No Jun 28 dine informati informati 2016 6:15 [Mass/vol on in [...] 100 mcg/mL Normal No Jun 28 informati 2016 5:00 [Mass/vol on in AM ume] in source Serum or data Plasma Ammonia [Mass/volume] in Unspecified specimen Observa Value Referen Units Interpr Notes Date tion ce etation Range Ammonia 19 - 54 umoL/L Low No Jun 28 [Mass/vol informati 2016 ume] in on in 12:25 AM Unspecifi [...] Normal No Jun 27 (T4) 1.46 informati 2016 8:55 free on in PM [Mass/vol source ume] in data Serum or Plasma Thyrotropin [Units/volume] in Serum or Plasma Observa Value Referen Units Interpr Notes Date tion ce etation Range Thyrotrop 0.358 - uIU/ml High No Sep 30 in 3.740 informati 2017 8:55 [Units/vo on [...] IS Plasma CONSIDERE D LEGALLYIN TOXICATED UNDER [facility] LAW. Comprehensive metabolic 2000 panel [...] Plasma Creatinin 0.55 - mg/dL High No May 30 e 1.02 informati 2017 8:55 [Mass/vol on in PM ume] in source Serum or data Plasma Creatinin 50 - 200 ML/MIN Normal No Sep 30 e renal informati 2016 8:55 clearance on in PM source predicted data by Cockcroft -Gault formula Estimated 59- ML/MIN Low REFERENCE Sep 30 RANGE: 2017 8:55 glomerula >60 PM r ML/MIN/1. filtratio 73 SQUARE n rate METERSIf (GF this patient is -A merican, then multiply theresult by 1.210. Globulin 1.3 - 3.2 gm/dL High No May 30 [Mass/vol informati 2016 8:55 ume] in on in PM Serum source data Glucose 74 - 106 mg/dL High No Jun 27 [Mass/vol informati 2016 8:55 ume] in on in PM Serum or source Plasma data Potassium 3.5 - 5.1 mmoL/L Normal No Jun 27 informati 2016 8:55 [Moles/vo on in PM lume] in source Serum or data Plasma Sodium 136 - 145 mmoL/L Normal No May 30 [Moles/vo informati 2016 8:55 lume] in on [...] Protein 6.4 - 8.2 gm/dL Normal No May 30 [Mass/vol informati 2016 8:55 ume] in on in PM Serum or source Plasma data Salicylates [Mass/volume] in Serum or Plasma Observa Value Referen Units Interpr Notes Date tion ce etation Range Salicylat 2.8 - mg/dL Normal No May 30 es 20.0 informati 2016 8:55 [Mass/vol on in PM ume] in source Serum or data Plasma Valproate [Mass/volume] in Serum or Plasma Observa Value Referen Units Interpr Notes Date tion ce etation Range Valproate 50 - 100 mcg/mL Normal No Sep 30 informati 2017 8:55 [Mass/vol on in PM ume] in source Serum or data Plasma CBC W Auto Differential panel in Blood Observa Value Referen Units Interpr Notes Date tion ce etation Range Basophils 0 - 0.2 K/MM3 Normal No Sep 30 informati 2017 8:55 [#/volume on in PM [...] Normal No Sep 30 ls/100 12.0 informati 2016 8:55 leukocyte on in PM [...] Normal No Sep 30 n 16.2 informati 2016 8:55 [Mass/vol on in PM ume] in source Blood data Lymphocyt 0.7 - 4.5 K/mm3 Normal No Sep 30 es informati 2016 8:55 [#/volume on in PM ] in source Unspecifi data ed specimen by Automated count Lymphocyt 10 - 50.0 % Normal No Sep 30 es informati 2016 8:55 [#/volume on in PM ] in source Unspecifi data ed specimen by Automated count Erythrocy 27 - 31.2 pg Normal No Sep 30 te mean informati 2016 8:55 corpuscul on in PM ar source [...] % Normal No Sep 30 /100 informati 2016 8:55 leukocyte on in PM s in source Blood by data Automated count Platelet 7.4 - fl Normal No Sep 30 mean 10.4 informati 2016 8:55 volume on in PM [Entitic source volume] data in Blood by Automated count Platelets 142 - 424 K/mm3 Normal No Sep 30 informati 2016 8:55 [#/volume on in PM ] in source Blood data Erythrocy 4.2 - 5.4 M/mm3 Normal No Sep 30 jennifer informati 2016 [...] Calcium 8.5 - mg/dL High No Sep [Mass/vol 10.1 informati 2016 2:05 ume] in on in PM Serum or source Plasma data Chloride 98 - 107 mmoL/L Normal No Sep [Moles/vo informati 2017 2:05 lume] in on in PM Serum or source Plasma data Carbon 21.0 - mmoL/L Normal No Jun 23 dioxide, 32.0 informati 2016 2:05 total on in PM [Moles/vo source lume] in data Serum or Plasma Creatinin 0.55 - mg/dL High No Sep 26 e 1.02 informati 2016 2:05 [Mass/vol on in PM ume] in source Serum or data Plasma Creatinin 50 - 200 ML/MIN Normal No Jun 23 e renal informati 2016 2:05 clearance on in PM source predicted data by Cockcroft -Gault formula Estimated 59- ML/MIN Low REFERENCE Sep RANGE: 2017 2:05 glomerula >60 PM r ML/MIN/1. filtratio 73 SQUARE n rate METERSIf (GF this patient is -A merican, then multiply theresult by 1.210. Globulin 1.3 - 3.2 gm/dL High No Sep [Mass/vol informati 2016 2:05 ume] in on in PM Serum source data Glucose 74 - 106 mg/dL High No Jun 23 [Mass/vol informati 2017 2:05 ume] in on in PM Serum or source Plasma data Potassium 3.5 - 5.1 mmoL/L Normal No Sep informati 2016 2:05 [Moles/vo on in PM lume] in source Serum or data Plasma Sodium 136 - 145 mmoL/L Normal No Sep 26 [Moles/vo informati 2017 2:05 lume] in on in PM Serum or source Plasma data Aspartate 15 - 37 U/L High No Sep informati 2017 2:05 aminotran on in PM sferase source [Enzymati data c activity/ volume] in Serum or Plasma Alanine 12 - 78 U/L Normal No Sep 26 aminotran informati 2017 2:05 sferase on in PM [Enzymati source c data activity/ volume] in Serum or Plasma Protein 6.4 - 8.2 gm/dL Normal No Sep [Mass/vol informati 2017 2:05 ume] in on [...] Normal No Sep 26 jennifer/100 80.0 informati 2016 2:05 leukocyte on in PM s in [...] K/mm3 Normal No Sep 26 es informati 2016 2:05 [#/volume on in PM ] in source Unspecifi data ed specimen by Automated count Lymphocyt 10 - 50.0 % Normal No Sep 26 es informati 2016 2:05 [#/volume on in PM [...] No Sep 26 te mean 97.8 informati 2016 2:05 corpuscul on in PM ar volume source [Entitic data volume] by Automated count Monocytes 0.1 - 1.0 K/mm3 Normal No Sep 26 informati 2016 2:05 [#/volume on in PM ] in source Blood by data Automated count Monocytes 1.7 - 9.3 % Normal No Sep 26 /100 informati 2016 2:05 leukocyte on in PM s in source Blood by data Automated count Platelets 142 - 424 K/mm3 Normal No Sep 26 informati 2016 2:05 [#/volume on in PM ] in source Blood data Erythrocy 4.2 - 5.4 M/mm3 Normal No Jun 23 jennifer informati 2017 2:05 [#/volume on in PM ] in source Amniotic data fluid Erythrocy 11.5 - % Normal No Jun 23 te 17.5 informati 2017 2:05 distribut on in PM ion width source [Entitic data volume] by Automated count Leukocyte 4.8 - K/mm3 Normal No Jun 23 s 10.8 informati 2017 2:05 [#/volume on in PM [...] gm/dL Normal No Apr 20 [Mass/vol informati 2017 2:29 ume] in on in [...] mg/dL Normal No Apr 20 nitrogen informati 2017 2:29 [Mass/vol on in PM [...] Normal No Apr 20 dioxide, 32.0 informati 2016 2:29 total on in PM [Moles/vo source lume] in data Serum or Plasma Creatinin 0.55 - mg/dL Normal No Apr 20 e 1.02 informati 2016 2:29 [Mass/vol on in PM [...] - 37 U/L High No Apr 20 informati 2016 2:29 aminotran on in PM sferase source [Enzymati data c activity/ volume] in Serum or Plasma Alanine 12 - 78 U/L Normal No Apr 20 aminotran informati 2016 2:29 sferase on in PM [Enzymati source [...] - 0.2 K/MM3 Normal No Apr 20 informati 2016 2:29 [#/volume on in PM [...] Normal No Apr 20 ls/100 12.0 informati 2016 2:29 leukocyte on in PM s in source Blood by data Automated count Granulocy 1.8 - 7.8 K/mm3 Normal No Apr 20 jennifer informati 2016 2:29 [#/volume on in PM ] in source Blood by data Automated count Granulocy 37.0 - % Normal No Apr 20 jennifer/100 80.0 informati 2016 2:29 leukocyte on in PM s in source Blood by data Automated count Hematocri 37.0 - % Normal No Apr 20 t [Volume 47.0 informati 2016 2:29 on in PM Fraction] source of Blood data Hemoglobi 12.2 - g/dL Normal No Apr 20 n 16.2 informati 2016 2:29 [Mass/vol on in PM [...] Normal No Apr 20 te mean informati 2016 2:29 corpuscul on in PM ar source hemoglobi data n [Entitic mass] Erythrocy 31.8 - g/dl Low No Apr 20 te mean 35.4 informati 2016 2:29 corpuscul on in PM ar source hemoglobi data n concentra tion [Mass/vol ume] by Automated count Erythrocy 82.2 - fl Normal No Apr 20 te mean 97.8 informati 2016 2:29 corpuscul on in PM ar volume source [Entitic data volume] by Automated count Monocytes 0.1 - 1.0 K/mm3 Normal No Apr 202016 2:29 [#/volume on in PM ] in source Blood by data Automated count Monocytes 1.7 - 9.3 % Normal No Apr 202016 2:29 leukocyte on in PM s in source Blood by data Automated count Platelet 7.4 - fl Normal No Apr 20 mean 10.4 2016 2:29 volume on in PM [Entitic [...] 1.8 - 7.8 K/mm3 Normal No Apr 152016 [#/volume on in 10:30 PM ] in source Blood by data Automated count Granulocy 37.0 - % Normal No Apr 15 jennifer/100 80.0 2016 leukocyte on in 10:30 PM s in source Blood by data Automated count Hematocri 37.0 - % Normal No Apr 15 t [Volume 47.0 informati 2017 on in 10:30 PM Fraction] source of Blood data Hemoglobi 12.2 - g/dL No No Apr 15 n 16.2 informati informati 2016 [Mass/vol on in on in 10:30 PM ume] in source source Blood data data Lymphocyt 0.7 - 4.5 K/mm3 Normal No Apr 15 es inform2016 [#/volume on in 10:30 PM ] in source Unspecifi data ed specimen by Automated count Lymphocyt 10 - 50.0 % Normal No Apr 15 es inform2016 [#/volume on in 10:30 PM ] in source Unspecifi data ed specimen by Automated count Erythrocy 27 - 31.2 pg Normal No Apr 15 te mean inform2016 corpuscul on in 10:30 PM ar source hemoglobi data n [Entitic mass] Erythrocy 31.8 - g/dl Normal No Apr 15 te mean 35.4 inform2016 corpuscul on in 10:30 PM ar source hemoglobi data n concentra tion [Mass/vol ume] by Automated count Erythrocy 82.2 - fl Normal No Apr 15 te mean 97.8 inform2016 corpuscul on in 10:30 PM ar volume source [Entitic data volume] by Automated count Monocytes 0.1 - 1.0 K/mm3 Normal No Apr 152016 [#/volume on in 10:30 PM ] in source Blood by data Automated count Monocytes 1.7 - 9.3 % Normal No Apr 15 /100 inform2016 leukocyte on in 10:30 PM s in source Blood by data Automated count Platelet 7.4 - fl Normal No Apr 15 mean 10.4 inform2016 volume on in 10:30 PM [Entitic source volume] data in Blood by Automated count Platelets 142 - 424 K/mm3 Normal No Apr 15 inform2016 [#/volume on in 10:30 PM ] in source Blood data Erythrocy 4.2 - 5.4 M/mm3 Normal No Apr 15 jennifer inform2016 [#/volume on in 10:30 PM ] in source Amniotic data fluid Erythrocy 11.5 - % Normal No Apr 15 te 17.5 informati 2016 distribut on in 10:30 PM ion width source [Entitic data volume] by Automated count Leukocyte 4.8 - K/MM3 Normal No Apr 15 s 10.8 inform2016 [#/volume on in 10:30 PM ] in source Blood data Amylase [Enzymatic activity/volume] in Serum or Plasma Observa Value Referen Units Interpr Notes Date tion ce etation Range Amylase 25 - 115 U/L Normal No Apr 15 [Enzymati informati [...] gm/dL Low No Apr 15 [Mass/vol informati 2016 ume] [...] mmoL/L High No Apr 15 [Moles/vo informati 2016 lume] [...] U/L Normal No Apr 15 [Enzymati informati 2017 c on in 10:30 PM activity/ source volume] data in Serum or Plasma Choriogonadotropin.beta subunit [Units] in 24 hour Urine Observa Value Referen Units Interpr Notes Date tion ce etation Range Choriogon NEG No No No Apr 15 adotropin informati informati informati 2017 .beta on in on in on in [...] High No Mar 12 in 3.740 informati 2017 [Units/vo on in 10:24 AM lume] in source Serum or data Plasma
--- OUTSIDE RECORDS SUMMARY | 2017-08-13 17:20 | External Medical Summary Rpt ---
[...] IS Plasma CONSIDERE D LEGALLYIN TOXICATED UNDER [facility] LAW. Comprehensive metabolic 2000 panel in [...]
[2017-08-13 18:30] LABS: HEMOGLOBIN 12.5 g/dL (12.2-16.2); LYMPH # 1.7 K/mm3 (0.7-4.5); LYMPH % 30.1 % (10-50.0)
--- NOTE | 2017-08-13 18:37 | RADIOLOGY REPORT PS360 ---
CT ABD PELVIS W/ CONTRAST CLINICAL INDICATION: Abdominal pain, history of cervical cancer, vaginal bleeding ABDOMINAL PAIN WITH VAG BLEEDING ORDERING PHYSICIAN: Celestino Tipton MD PATIENT AGE: 42 years COMPARISON: 07/15/2017 TECHNIQUE: Axial images obtained with sagittal and coronal reformats. PROCEDURE: Oral Contrast: None IV Contrast: 75 mL of Isovue-[id number]. FINDINGS: Lung bases are clear. Prior cholecystectomy. Mild fatty liver. There is a subtle 8 mm area of decreased attenuation in the portal area of the left hepatic lobe nonspecific too small to categorize. Small area of decreased attenuation also involves the inferior aspect of the right hepatic lobe near the gallbladder fossa not significant changed. The spleen, adrenal glands, and pancreas are unremarkable. There is some cortical scarring of the left kidney superiorly. No obstructing renal or ureteral calculi are evident. Unremarkable appendix. No evidence of diverticulitis There is a small amount fluid in the cul-de-sac and left adnexa. There is some decreased attenuation within the liver uterus nonspecific and may be better evaluated with ultrasound. No pelvic mass or adenopathy No acute bony anomalies. IMPRESSION: 1. No definite acute abdominal or pelvic pathology. 2. Small amount fluid in the cul-de-sac and left adnexa nonspecific 3. At least 2 areas of hypoattenuation in the liver which are nonspecific.
[2017-08-13] MEDS ORDERED: ULTRAM50 MG PO (19:42)
[2017-08-13 20:45] VITALS: BP 111/76
== END 2017-08-13 20:45 | disposition home or self-care (01) ==
LOC: ER 16:17
PROVIDERS: Emergency Medicine
DX: N93.9 Abnormal uterine and vaginal bleeding, unspecified (principal); F17.210 Nicotine dependence, cigarettes, uncomplicated; F41.8 Other specified anxiety disorders; Z79.82 Long term (current) use of aspirin; J45.909 Unspecified asthma, uncomplicated
CPT/HCPCS: J2405; Q9967